=== PATIENT | male | born 1970 | race Caucasian/White ===

== ENCOUNTER 2018-03-31 10:35 | Emergency (ER) | payer OTHER ==
[~2018-03-31] VITALS: Ht 182.9 cm; Wt 83.9 kg
--- OUTSIDE RECORDS SUMMARY | ~2018-03-31 | XMS | Encounter Summary ---
Demographics + + + | Address | [address] | | | [place] [address] | + + + | Home Phone | | + + + | Preferred Language | Unknown | + + + | Marital Status | | + + + | Christian Affiliation | Unknown | + + + | Race | White | + + + | Ethnic Group | Not or | + + + Author + + + | Author | [facility] | + + + | Organization | [facility] | + + + | Address | Unknown | + + + | Phone | Unavailable | + + + Support + + + + + | Name | Relationship | Address | Phone | + + + + + | Brittney Dawkins | [address] | [place] | | | | | [address] | | + + + + + Care Team Providers + +------+ + | Care Congregational Care Pastor Name | Role | Phone | + [...] + + | 02/05/ | Abstract | Transplant | Santos Lorenzo, | Lab Results (MDRD6: | | 2017 | | Coordinators [address] | [address] | 01/22/18) | | | | [address] [facility] | [facility] | | | | | Road [place], [place] | [place] | | | | | [address] | [address] | | | | | [phone] | [phone] | | | | | | | [...] + +---------+ + | Alcohol Use | Drinks/We | oz/Week | Comments | | | ek | | | + + +---------+ + | No | 0 | 0.0 | None since renal failure progressed | | | Standard | | | | | drinks or | | | | | | | | | | equivalen | | | | | t | | | + + +---------+ + + + + | Sex Assigned at | Date Recorded | | | | + + + | Not on file | | + + + as of this encounter Plan of Treatment +--------+ + + + + | Date | Type | Specialty | Care Team | Description | +--------+ + + + + | 05/02/ | Hospital | Adult Acute Care | Anam Posada MD | | | 2018 | Encounter | | [address] | | | | | | [place], | | | | | | [place] [address] | | | | | | [phone] | | | | | | | | +--------+ + + + + as of this encounter Procedures + +--------+ + + + | Procedure Name | Priori | Date/Time | Associated Diagnosis | Comments | | | ty | | | | + +--------+ + + + | MDRD 6 | Routin | 01/22/2018 | | Results for this | | | e | 12:00 AM | | procedure are in the | | | | PDT | | results section. | + +--------+ + + + in this encounter Results MDRD 6 (01/22/2018) + + + + + | Component | Value | Ref Range | Performed At | + + + + + | MDRD6 | 24.75 | | NON [facility] | + + + + + | BUN, PLASMA (LAB) | 34 (H) | mg/dL | [facility] | + + + + + | CREATININE PLASMA | 3.06 (H) | mg/dL | NON [facility] | | (LAB) | | | | + + + + + | ALBUMIN, PLASMA | 4.3 | g/dL | NON [facility] | | (LAB) | | | | + + + + + + + | Specimen | + + | Blood - Blood | + + + + + | Narrative | Performed At | + + + | Silvia | NON [facility] | | [place] [address] | | + + + + +---------+ + + | Performing | Address | City/State/Zipcode | Phone Number | | Organization | | | | + +---------+ + + | NON [facility] | | | | + +---------+ + + in this encounter Visit Diagnoses Not on filein this encounter"
--- OUTSIDE RECORDS SUMMARY | ~2018-03-31 | XMS | Clinical Summary ---
Demographics + + + | Address | [address] | | | [place] [address] | + + + | Home Phone | | + + + | Preferred Language | Unknown | + + + | Marital Status | | + + + | Gnosticist Affiliation | Unknown | + + + | Race | White | + + + | Ethnic Group | Not or | + + + Author + + + | Author | [facility] | + + + | Organization | [facility] | + + + | Address | Unknown | + + + | Phone | Unavailable | + + + Support + + + + + | Name | Relationship | Address | Phone | + + + + + | Brittney Dawkins | ECON | [place] | | | | | [address] | | + + + + + Care Team Providers + +------+ + | Care Manager Inspection Name | Role | Phone | + +------+ + | Jt Perkins MD | PP | | + +------+ + Source Comments RODRIGUEZ is fully live on both [facility] Ambulatory and [facility] InPatient.[facility] Allergies + + + + + + | Active Allergy | Reactions | Severity | Noted | Comments | | | | | Date | | + + + + + + | Hydrocodone | Pruritus | Medium | 09/05/19 | Pt reports itching | | | | | 16 | with most | | | | | | narcotics, no rash | | | | | | "just a lot of | | | | | | itching with | | | | | | narcotic" | + + + + + + Current Medications + + +-------+---------+------+------+-------+ | Prescription | Sig. | Disp. | Refills | Star | End | Statu | | | | | | t | Date | s | | | | | | Date | | | + + +-------+---------+------+------+-------+ | HUMIRA PEN | | | 0 | 11/2 | | Activ | | CROHN'S-UC-HS START | | | | 4/20 | | e | | 40 mg/0.8 mL | | | | 15 | | | | subcutaneous pen | | | | | | | | injector kit | | | | | | | + + +-------+---------+------+------+-------+ | carvedilol 12.5 mg | 12.5 mg two times | | 0 | 02/1 | | Activ | | oral tablet | daily. | | | 0/20 | | e | | | | | | 16 | | | + + +-------+---------+------+------+-------+ | pantoprazole 40 mg | | | 0 | 02/0 | | Activ | | oral tablet,delayed | | | | 5/20 | | e | | release (DR/EC) | | | | 16 | | | + + +-------+---------+------+------+-------+ | Cholecalciferol, | Take 5,000 Units by | | 0 | 12/1 | | Activ | | Vitamin D3, 5,000 | mouth once daily. | | | 4/20 | | e | | unit oral capsule | | | | 15 | | | + + +-------+---------+------+------+-------+ | escitalopram | Take 20 mg by mouth | | | | | Activ | | oxalate 20 mg oral | once daily. | | | | | e | | tablet | | | | | | | + + +-------+---------+------+------+-------+ Active Problems + + + | Problem | Noted Date | + + + | Anemia of chronic renal failure, stage 4 (severe) ([facility]) | 09/05/2015 | + + + | Venous malformation | 09/05/2015 | + + + + + | Overview: On outside CT | + + + + + | CD (Crohn's disease) ([facility]) | 05/29/2015 | + + + | Inflammation of multiple joints | 05/29/2015 | + + + | Benign hypertension | 05/23/2015 | + + + + + | Overview: No clonidine | | One ED visit | + + + + + | Clinical depression | 10/08/2012 | + + + + + | Overview: Not suicidal | | Not homicidal | + + + + + | Acute interstitial nephritis | 03/12/2009 | + + + | Chronic kidney disease, stage IV (severe) (HCC) | 03/02/2009 | + + + + + | Overview: 1. Progressive renal dysfxn2. Abnormal R renal CT3. | | Renal Bx: 11/25: Interstitial nephritis. ([facility], | | [place]) 4. Corticosteroids instituted: . Negative | | immunologic w/u: ADAM, anti-DNA6. eGFR 18: 08/2015 | |5. Negative immunologic w/u: ADAM, anti-DNA | |6. eGFR 18: 08/2015 | + + + +---+ | Renal hypertension | | + +---+ + + | Overview: 2728 diagnosis | + + Resolved Problems +---------+ + + | Problem | Noted | Resolved | | | Date | Date | +---------+ + + | Colitis | 03/02/20 | | | | 09 | 6 | +---------+ + + Encounters +--------+ + + + + | Date | Type | Specialty | Care Team | Description | +--------+ + + + + | 03/30/ | Telephone | | Damaris Krishnamurthy RN | TAMIKO Waitlist | | 2017 | | | | | +--------+ + + + + | 02/19/ | Documentati | | Margaret Holman, | | | 2017 | on | | EVAPORATOR HELPER | | +--------+ + + + + | 02/17/ | Telephone | | Thi Lopez | TAMIKO Waitlist (routine | | 2017 | | Abby Peterson RN | check in) | +--------+ + + + + | 02/05/ | Abstract | | Santos Lorenzo, | Lab Results (MDRD6: | | 2017 | | | MD | 01/22/18) | +--------+ + + + + from Last 3 Months Immunizations + + + + | Name | Dates Previously Given | Next Due | + + + + | PCV13 | 09/05/2015 | | + + + + | Pneumococcal 23 | 12/11/2015 | | + + + + | Tdap | 12/11/2015 | | + + + + Family History + + +------+ + | Medical History | Relation | Name | Comments | + + +------+ + | Hypertension | Father | | | + + +------+ + | Cancer | Maternal | | colon, lung, melanoma | | | Grandfath | | | | | er | | | + + +------+ + | Cancer | Maternal | | Breast | | | Grandmoth | | | | | er | | | + + +------+ + | Hypertension | Mother | | | + + +------+ + | Heart Disease | Paternal | | | | | Grandfath | | | | | er | | | + + +------+ + + +------+ + + | Relation | Name | Status | Comments | + +------+ + + | Brother | | Alive | | + +------+ + + | Father | | Alive | | + +------+ + + | Maternal Grandfather | | | | + +------+ + + | Maternal Grandmother | | | | + +------+ + + | Mother | | Alive | | + +------+ + + | Paternal Grandfather | | | | + +------+ + + | Paternal Grandmother | | | | + +------+ + + Social History + + + [...] on file | | + + + Last Filed Vital Signs + + + + | Vital Sign | Reading | Time Taken | + + + + | Blood Pressure | 140/85 | 07/02/2016 2:55 PM PST | + + + + | Pulse | 67 | 07/02/2016 2:55 PM PST | + + + + | Temperature | 36.4 C (97.6 F) | 07/02/2016 2:55 PM PST | + + + + | Respiratory Rate | 18 | 03/12/2009 9:20 AM PDT | + + + + | Oxygen Saturation | 97% | 07/02/2016 2:55 PM PST | + + + + | Inhaled Oxygen | - | - | | Concentration | | | + + + + | Weight | 88.5 kg (195 lb) | 07/02/2016 2:55 PM PST | + + + + | Height | 182.9 cm (6') | 07/02/2016 2:55 PM PST | + + + + | Body Mass Index | 26.45 | 07/02/2016 2:55 PM PST | + + + + Plan of Treatment +--------+ + + + + | Date | Type | Specialty | Care Team | Description | +--------+ + + + + | 10/14/ | Hospital | | Anam Posada MD | | | 2019 | Encounter | | [address] | | | | | | [place], | | | | | | [place] [address] | | | | | | [phone] | | | | | | | | +--------+ + + + + + + + + + | Health Maintenance | Due Date | Last Done | Comments | + + + + + | INFLUENZA VACCINE | | | | | (FLU SHOT) | 8 | | | + + + + + | Pneumococcal (Adult) | | 12/11/2015, 09/05/2015 | | | (3 of 3 - PPSV23) | 1 | | | + + + + + Procedures + +--------+ + + + | [...] + + from Last 3 Months Results MDRD 6 (01/22/2018) + + + + + | Component | Value | Ref Range | Performed At | + + + + + | MDRD6 | 24.75 | | NON [facility] | + + + + + | BUN, PLASMA (LAB) | 34 (H) | mg/dL | NON [facility] | + + + + + [...] [facility] | | Health [place] [address] | | + + + + +---------+ + + | Performing | Address | City/State/Zipcode | Phone Number | | Organization | | | | + +---------+ + + | NON [facility] | | | | + +---------+ + + from Last 3 Months Insurance + +--------+ +--------+ + + | Hugoer | Stefanyi | Subscriber | Type | Phone | Address | | | t Plan | ID | | | | | | / | | | | | | | Group | | | | | + +--------+ +--------+ + + | [employer] | LIFEWI | xxxxxxxxxxx | Indemn | | | | | SE OUT | x | ity | | | | | OF | | | | | | | NETWOR | | | | | | | K | | | | | + +--------+ +--------+ + + | [facility] | PHP | [phone] | PPO | [phone] | [address] | | | [address] | | [address] | [place] [address] | | | STATEW | | | | | | | SUHA | | | | | + +--------+ +--------+ + + + +--------+ +--------+ + + | Guarantor Name | Accoun | Relation to | Date | Phone | Billing Address | | | t Type | Patient | of | | | | | | | | | | + +--------+ +--------+ + + | DASHA ONEILL | Person | Self [birth year] Home: | [address] | | | al/Fam | | 1971 | [phone] [place] [address] | | | greg | | | [phone] | | + +--------+ +--------+ + +
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
--- OUTSIDE RECORDS SUMMARY | ~2018-03-31 | XMS | Encounter Summary ---
Demographics + + + | Address | [address] | | | [place] [address] | + + + | Home Phone | | + + + | Preferred Language | Unknown | + + + | Marital Status | | + + + | Adventism Affiliation | Unknown | + + + | Race | White | + + + | Ethnic Group | Not or | + + + Author + + + | Author | [facility] | + + + | Organization | [facility] | + + + | Address | Unknown | + + + | Phone | Unavailable | + + + Support + + + + + | Name | Relationship | Address | Phone | + + + + + | Brittney Dawkins | [address] | [place] | | | | | [address] | | + + + + + Care Team Providers + +------+ + | Care Pheresis Specialist Name | Role | Phone | + +------+ + | Jt Perkins MD | PCP | | + +------+ + Encounter Details +--------+ + + + + | Date | Type | Department | Care Team | Description | +--------+ + + + + | 02/19/ | Documentati | Transplant Social | Margaret Holman, | | | 2018 | on | Work [phone] | [facility] [phone] | | | | | [facility] | [facility] | | | | | Jesse [address] | [place], [place] | | | | | [place], [place] | [address] | | | | | [address] | [phone] | | | | | [phone] | | | +--------+ + + + [...] | | | | | [address] [place], | | | | | | [place] [address] | | | | | | [phone] | | | | | | | | +--------+ + + + + as of this encounter Visit Diagnoses Not on filein this encounter"
--- OUTSIDE RECORDS SUMMARY | ~2018-03-31 | XMS | Clinical Summary ---
Demographics + + + | Address | [address] | | | [place] [address] | + + + | Home Phone | | + + + | Preferred Language | Unknown | + + + | Marital Status | | + + + | Cheondoism Affiliation | Unknown | + + + [...] [place] | | | | | [address] | | + + + + + Care Team Providers + +------+ + | Care Medical Diagnostic Radiographer Name | Role | Phone | + +------+ + | Jt Perkins MD | PP | | + +------+ + Source Comments RODRIGUEZ is fully live on both [facility] Ambulatory and [facility]Patient[facility] Allergies + + + + [...] 11/25: Interstitial nephritis. ([facility], | | [place]) 4. Corticosteroids instituted: . Negative | | [...] | | 2017 | on | | GROUNDS WORKER | | +--------+ + + + + [...] | | | | | [address] [place], | | | | | | [place] [address] | | | | | | [phone] | | | | | | | [...] [facility] | | Health [facility] [place] [address] | | + + + + +---------+ [...] | [address] | | [address] | [place] [address] | | | [address] | | | [...] | 1971 | [phone] | [place] [address] | | | greg | | | 1825 | | + +--------+ +--------+ + +
--- OUTSIDE RECORDS SUMMARY | ~2018-03-31 | XMS | Encounter Summary ---
Demographics + + + | Address | [address] | | | [place] [address] | + + + | Home Phone | | + + + | Preferred Language | Unknown | + + + | Marital Status | | + + + | Adventist Affiliation | 1041 | + + + | Race | Unknown | + + + | Ethnic Group | Unknown | + + + Author + + + | Author | [facility] | | | and [place] | + + + | Organization | [facility] | | | and [place] | [...] [place], [place] | | | | | [address] | | + + + + + | Ryan Oneill | ECON | [place], [place] | | | | | [address] | | + + + + + Care Team Providers + +------+ + | Care Pulmonary Physician Name | Role | Phone | + +------+ + PCP | Unavailable | + +------+ + Encounter Details +--------+ + + + + | Date | Type | Department | Care Team | Description | +--------+ + + + + | 01/25/ | Abstract | [facility] | Christine Martinez W, | | | 2017 | | NEPHROLOGY [address] | | | | | [address] | [address] [place] | | | | | [place], [place] | [place] [address] | | | | | [address] | [phone] | | | | | [phone] | | | +--------+ + + + [...] Nephrology | Christine Martinez, | | | 2018 | Visit | | [address] | | | | | | [address] [place] | | | | | | [place] [address] | | | | | | [phone] | | | | | | | | +--------+---------+ + + + as of this encounter Procedures + +--------+ + + + | Procedure Name | Priori | Date/Time | Associated Diagnosis | Comments | | | ty | | | | + +--------+ + + + | EXTERNAL LAB: BUN | Routin | 01/22/2018 | | Results for this | | | e | 0000 PDT | | procedure are in the | | | | | | results section. | + +--------+ + + + | EXTERNAL LAB: | Routin | 01/22/2018 | | Results for this | | GLUCOSE | e | 0000 PDT | | procedure are in the | | | | | | results section. | + +--------+ + + + | EXTERNAL LAB: | Routin | 01/22/2018 | | Results for this | | ALBUMIN | e | 0000 PDT | | procedure are in the | | | | | | results section. | + +--------+ + + + | EXTERNAL LAB: | Routin | 01/22/2018 | | Results for this | | PHOSPHORUS | e | 0000 PDT | | procedure are in the | | | | | | results section. | + +--------+ + + + | EXTERNAL LAB: | Routin | 01/22/2018 | | Results for this | | CALCIUM | e | 0000 PDT | | procedure are in the | | | | | | results section. | + +--------+ + + + | EXTERNAL LAB: CARBON | Routin | 01/22/2018 | | Results for this | | DIOXIDE | e | 0000 PDT | | procedure are in the | | | | | | results section. | + +--------+ + + + | EXTERNAL LAB: | Routin | 01/22/2018 | | Results for this | | CHLORIDE | e | 0000 PDT | | procedure are in the | | | | | | results section. | + +--------+ + + + | EXTERNAL LAB: | Routin | 01/22/2018 | | Results for this | | POTASSIUM | e | 0000 PDT | | procedure are in the | | | | | | results section. | + +--------+ + + + | EXTERNAL LAB: SODIUM | Routin | 01/22/2018 | | Results for this | | | e | 0000 PDT | | procedure are in the | | | | | | results section. | + +--------+ + + + | EXTERNAL LAB: | Routin | 01/22/2018 | | Results for this | | VITAMIN D, | e | 0000 PDT | | procedure are in the | | 25-HYDROXY | | | | results section. | + +--------+ + + + | EXTERNAL LAB: | Routin | 01/22/2018 | | Results for this | | URINALYSIS | e | 0000 PDT | | procedure are in the | | | | | | results section. | + +--------+ + + + | EXTERNAL LAB: PTH, | Routin | 01/22/2018 | | Results for this | | INTACT | e | 0000 PDT | | procedure are in the | | | | | | results section. | + +--------+ + + + | EXTERNAL LAB: | Routin | 01/22/2018 | | Results for this | | PROTEIN/CREATININE | e | 0000 PDT | | procedure are in the | | RATIO | | | | results section. | + +--------+ + + + | EXTERNAL LAB: CBC | Routin | 01/22/2018 | | Results for this | | | e | 0000 PDT | | procedure are in the | | | | | | results section. | + +--------+ + + + | EXTERNAL LAB: EGFR | Routin | 01/22/2018 | | Results for this | | | e | 0000 PDT | | procedure are in the | | | | | | results section. | + +--------+ + + + | EXTERNAL LAB: | Routin | 01/22/2018 | | Results for this | | CREATININE | e | 0000 PDT | | procedure are in the | | | | | | results section. | + +--------+ + + + | URINALYSIS WITH | Routin | 01/22/2018 | | Results for this | | MICROSCOPIC | e | 0000 PDT | | procedure are in the | | | | | | results section. | + +--------+ + + + in this encounter Results Urinalysis With Microscopic (01/22/2018) + + + + + | Component | Value | Ref Range | Performed At | + + + + + | WBC UA | 2 | /HPF | | + + + + + | COLOR | Yellow | Light Yellow, Yellow | | + + + + + | BACTERIA UA | Negative | Negative /HPF | | + + + + + | SQUAMOUS EPITHELIAL | 0-2 | 0 - 2 /LPF | | | UA | | | | + + + + + | NITRITE UA | Negative | Negative | | + + + + + | CLARITY | Clear | | | + + + + + + + | Specimen | + + | Urine | + + External Lab: Protein/Creatinine Ratio (01/22/2018) + + + + + | Component | Value | Ref Range | Performed At | + + + + + | Protein/Creatinine | 0.270 (A) | 0.2 | | | Ratio, External | | | | + + + + + External Lab: PTH, Intact (01/22/2018) + + + + + | Component | Value | Ref Range | Performed At | + + + + + | PTH Intact, External | 124.2 (A) | 12 - 88 | | + + + + + External Lab: BUN (01/22/2018) + +--------+ + + | Component | Value | Ref Range | Performed At | + +--------+ + + | BUN, External | 34 (A) | 6 - 23 | EXTERNAL LAB | + +--------+ + + + +---------+ + + | Performing | Address | City/State/Zipcode | Phone Number | | Organization | | | | + +---------+ + + | EXTERNAL LAB | | | | + +---------+ + + External Lab: Glucose (01/22/2018) + +-------+ + + | Component | Value | Ref Range | Performed At | + +-------+ + + | Glucose, External | 75 | 70 - 100 | EXTERNAL LAB | + +-------+ + + + +---------+ + + | Performing | Address | City/State/Zipcode | Phone Number | | Organization | | | | + +---------+ + + | EXTERNAL LAB | | | | + +---------+ + + External Lab: Albumin (01/22/2018) + +-------+ + + | Component | Value | Ref Range | Performed At | + +-------+ + + | Albumin, External | 4.3 | 3.5 - 5 | EXTERNAL LAB | + +-------+ + + + +---------+ + + | Performing | Address | City/State/Zipcode | Phone Number | | Organization | | | | + +---------+ + + | EXTERNAL LAB | | | | + +---------+ + + External Lab: Phosphorus (01/22/2018) + +-------+ + + | Component | Value | Ref Range | Performed At | + +-------+ + + | Phosphorus, External | 3.8 | 2.5 - 5 | EXTERNAL LAB | + +-------+ + + + +---------+ + + | Performing | Address | City/State/Zipcode | Phone Number | | Organization | | | | + +---------+ + + | EXTERNAL LAB | | | | + +---------+ + + External Lab: Calcium (01/22/2018) + +-------+ + + | Component | Value | Ref Range | Performed At | + +-------+ + + | Calcium, External | 8.8 | 8.4 - 10.2 | EXTERNAL LAB | + +-------+ + + + +---------+ + + | Performing | Address | City/State/Zipcode | Phone Number | | Organization | | | | + +---------+ + + | EXTERNAL LAB | | | | + +---------+ + + External Lab: Carbon Dioxide (01/22/2018) + +-------+ + + | Component | Value | Ref Range | Performed At | + +-------+ + + | Carbon Dioxide, | 24 | 23 - 32 | EXTERNAL LAB | | External | | | | + +-------+ + + + +---------+ + + | Performing | Address | City/State/Zipcode | Phone Number | | Organization | | | | + +---------+ + + | EXTERNAL LAB | | | | + +---------+ + + External Lab: Chloride (01/22/2018) + +-------+ + + | Component | Value | Ref Range | Performed At | + +-------+ + + | Chloride, External | 107 | 100 - 110 | EXTERNAL LAB | + +-------+ + + + +---------+ + + | Performing | Address | City/State/Zipcode | Phone Number | | Organization | | | | + +---------+ + + | EXTERNAL LAB | | | | + +---------+ + + External Lab: Potassium (01/22/2018) + +-------+ + + | Component | Value | Ref Range | Performed At | + +-------+ + + | Potassium, External | 4.1 | 3.5 - 5.1 | EXTERNAL LAB | + +-------+ + + + +---------+ + + | Performing | Address | City/State/Zipcode | Phone Number | | Organization | | | | + +---------+ + + | EXTERNAL LAB | | | | + +---------+ + + External Lab: Sodium (01/22/2018) + +-------+ + + | Component | Value | Ref Range | Performed At | + +-------+ + + | Sodium, External | 141 | 135 - 145 | EXTERNAL LAB | + +-------+ + + + +---------+ + + | Performing | Address | City/State/Zipcode | Phone Number | | Organization | | | | + +---------+ + + | EXTERNAL LAB | | | | + +---------+ + + External Lab: Vitamin D, 25-Hydroxy (01/22/2018) + +--------+ + + | Component | Value | Ref Range | Performed At | + +--------+ + + | Vitamin D, | 28 (A) | 30 - 100 | EXTERNAL LAB | | 25-Hydroxy, External | | | | + +--------+ + + + + | Specimen | + + | Blood | + + + +---------+ + + | Performing | Address | City/State/Zipcode | Phone Number | | Organization | | | | + +---------+ + + | EXTERNAL LAB | | | | + +---------+ + + External Lab: Urinalysis (01/22/2018) + + + + + | Component | Value | Ref Range | Performed At | + + + + + | UA Blood, External | small | | EXTERNAL LAB | + + + + + | UA Glucose, External | normal | | EXTERNAL LAB | + + + + + | UA Ketones, External | negative | | EXTERNAL LAB | + + + + + | UA Ph, External | 5 | | EXTERNAL LAB | + + + + + | UA Proteins, | negative | | EXTERNAL LAB | | External | | | | + + + + + | UA RBC, External | 2 | | EXTERNAL LAB | + + + + + | UA Specific [place], | 1.018 | | EXTERNAL LAB | | External | | | | + + + + + | UA Leukocyte | negative | | EXTERNAL LAB | | Esterase, External | | | | + + + + + + +---------+ + + | Performing | Address | City/State/Zipcode | Phone Number | | Organization | | | | + +---------+ + + | EXTERNAL LAB | | | | + +---------+ + + External Lab: CBC (01/22/2018) + + + + + | Component | Value | Ref Range | Performed At | + + + + + | WBC, External | 4.2 | 4 - 11 | EXTERNAL LAB | + + + + + | HGB, External | 13 | 12 - 16 | EXTERNAL LAB | + + + + + | HCT, External | 37.4 | 35 - 45 | EXTERNAL LAB | + + + + + | PLT, External | 191 | 140 - 440 | EXTERNAL LAB | + + + + + | RBC, External | 3.89 (A) | 4 - 6 | EXTERNAL LAB | + + + + + | MCV, External | 96 | 80 - 100 | EXTERNAL LAB | + + + + + | RDW, External | 14.8 | 12 - 16 | EXTERNAL LAB | + + + + + + +---------+ + + | Performing | Address | City/State/Zipcode | Phone Number | | Organization | | | | + +---------+ + + | EXTERNAL LAB | | | | + +---------+ + + External Lab: eGFR (01/22/2018) + +--------+ + + | Component | Value | Ref Range | Performed At | + +--------+ + + | eGFR, External | 22 (A) | 60 | EXTERNAL LAB | + +--------+ + + + + | Specimen | + + | Blood | + + + +---------+ + + | Performing | Address | City/State/Zipcode | Phone Number | | Organization | | | | + +---------+ + + | EXTERNAL LAB | | | | + +---------+ + + External Lab: Creatinine (01/22/2018) + + + + + | Component | Value | Ref Range | Performed At | + + + + + | Creatinine, External | 3.06 (A) | 0.6 - 1.3 | EXTERNAL LAB | + + + + + + [...]
--- OUTSIDE RECORDS SUMMARY | ~2018-03-31 | XMS | Encounter Summary ---
Demographics + + + | Address | [address] | | | [place] [address] | + + + | Home Phone | | + + + | Preferred Language | Unknown | + + + | Marital Status | | + + + | Oriental Orthodox Affiliation | Unknown | + + + [...] [place] | | | | | [address] | | + + + + + Care Team Providers + +------+ + | Care Top And Trim Worker Name | Role | Phone | + +------+ + | Jt Perkins MD | PCP | | + +------+ + Encounter Details +--------+ + + + + | Date | Type | Department | Care Team | Description | +--------+ + + + + | 02/19/ | Documentati | Transplant Social | Margaret Holman, | | | 2018 | on | Work [address] [facility] | [facility] [address] | | | | | [facility] | [facility] | | | | | Jesse Yancey | [place], [place] | | | | | [place] | [address] | | | | | [address] | [phone] | | | | | [phone] | | | +--------+ + + + [...] | | | | | Kait Barrios [place], | | | | | | [place] [address] | | | | | | [phone] | | | | | | | | +--------+ + + + + as of this encounter Visit Diagnoses Not on filein this encounter"
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
--- OUTSIDE RECORDS SUMMARY | ~2018-03-31 | XMS | Encounter Summary ---
Demographics + + + | Address | [address] | | | [place] [address] | + + + | Home Phone | | + + + | Preferred Language | Unknown | + + + | Marital Status | | + + + | Pentecostal Affiliation | 1041 | + + + | Race | Unknown | + + + | Ethnic Group | Unknown | + + + Author + + + | Author | [facility] | | | and [place] | + + + | Organization | [facility] | | | and [place] | + + + | Address | Unknown | + + + | Phone | Unavailable | + + + Support + + + + + | Name | Relationship | Address | Phone | + + + + + | Britteny Oneill | ECON | [address] | | | | | [place], [place] | | | | | [address] | | + + + + + | Ryan Oneill | ECON | [place] | | | | | [address] | | + + + + + Care Team Providers + +------+ + | Care Electronics Research Engineer Name | Role | Phone | [...] | kidney | MD Bj | [address] | | | | | disease, | [address] | | | | | stage 4 | [place] | [address] [place] | | | | | (severe) | [address] | [place] | | | | | (HCC) | [place], | [address] Phone: | | | | | Essential | [place] | [phone] | | | | | hypertension | [address] | Fax: | | | | | , benign | Phone: | [phone] | | | | | Procedures | [phone] | | | | | | [place] OFFICE | Fax: | | | | | | OUTPATIENT | [phone] | | | | | | VISIT 25 | | | | | | | MINUTES | | | + +--------+ + + + + Encounter Details +--------+---------+ + + + | Date | Type | Department | Care Team | Description | +--------+---------+ + + + | 01/26/ | Office | [facility] | Christine Martinez, | CKD (chronic kidney | | 2017 | Visit | NEPHROLOGY [address] | disease) stage 4, | | | | [address] | [address] [place] | GFR 15-29 ml/min | | | | [place], [place] | [place] [address] | ([facility]) (Primary Dx); | | | | [address] | [phone] | Essential | | | | [phone] | | hypertension; Anemia | | | | | | in stage 4 chronic | | | | | | kidney disease | | | | | | ([facility]); Secondary | | | | | | hyperparathyroidism | | | | | | ([facility]) | +--------+---------+ + + + Social [...] added to kidney transplant waiting list at [facility] Waiting time qualifying date: 10/04/15 04/28/16- Active on transplant list at [facility]. Referred to [facility]. Cleared for transplant by Dr. Lorenzo/ Dr. Reynolds on 02/15/16. Secondary hyperparathyroidism (HCC) 11/26/2015 H/O Gastric ulcer 11/08/2015 CKD (chronic kidney disease) stage 4, GFR 15-29 ml/min ([facility]) 10/29/2015 Note Last Updated: 10/20/2016 On [...] RBC, External 01/22/2018 2 Final UA Specific [place], External 01/22/2018 1.018 Final UA Leukocyte Esterase, [...] GFR 15-29 ml/min ([facility]) Due to chronic interstitia l nephropathy. History of dialysis x 10 months. eGFR >20 mL/min. Clinically, pt is doing well. Plan to contact [facility] Transplant, once eGFR is <20 for [...] [place] | | | | | | [place] [address] | | | | | | [phone] | | | | | | | [...] ml/min ([facility]) - Primary | + + | Chronic kidney disease, Stage IV (severe) | + + | Essential hypertension | + + | Essential hypertension, benign | + + | Anemia in stage 4 chronic kidney disease (HCC) | + + | Secondary hyperparathyroidism (HCC) | + + | Secondary hyperparathyroidism (of renal origin) | + +"
--- OUTSIDE RECORDS SUMMARY | ~2018-03-31 | XMS | Encounter Summary ---
Demographics + + + | Address | [address] | | | [place] [address] | + + + | Home Phone | | + + + | Preferred Language | Unknown | + + + | Marital Status | | + + + | Rastafarian Affiliation | Unknown | + + + | Race | White | + + + | Ethnic Group | Not or | + + + Author + + + | Author | [facility] | + + + | Organization | [facility] | + + + | Address | Unknown | + + + | Phone | Unavailable | + + + Support + + + + + | Name | Relationship | Address | Phone | + + + + + | Brittney Dawkins | [address] | [place] | | | | | [address] | | + + + + + Care Team Providers + +------+ + | Care Cage Shift Manager Name | Role | Phone | [...] 01/22/18) | | | | [address] [facility] | [facility] | | | | | Road [place], [place] | [place], [place] | | | | | [address] | [address] | | | | | [phone] | [phone] | | | | | | | [...] | | | | | Kait Barrios [place], | | | | | | [place] [address] | | | | | | [phone] | | | | | | | [...] | MDRD6 | 24.75 | | NON [facility] | + + + + + | BUN, PLASMA (LAB) | 34 (H) | mg/dL | NON [facility] | + + + + + [...] [facility] | | [place] [address] | | + + + + +---------+ + + | Performing | Address | City/State/Zipcode | Phone Number | | Organization | | | | + +---------+ + + | NON [facility] | | | | + +---------+ + + in this encounter Visit Diagnoses Not on filein this encounter"
--- OUTSIDE RECORDS SUMMARY | ~2018-03-31 | XMS | Encounter Summary ---
Demographics + + + | Address | [address] | | | [place] [address] | + + + | Home Phone | | + + + | Preferred Language | Unknown | + + + | Marital Status | | + + + | Moravian Affiliation | Unknown | + + + | Race | White | + + + | Ethnic Group | Not or | + + + Author + + + | Author | [facility] | + + + | Organization | [facility] | + + + | Address | Unknown | + + + | Phone | Unavailable | + + + Support + + + + + | Name | Relationship | Address | Phone | + + + + + | Brittney Dawkins | [address] | [place] | | | | | [address] | | + + + + + Care Team Providers + +------+ + | Care Senior Design Engineer Name | Role | Phone | [...] + + | 02/17/ | Telephone | Transplant | Thi Lopez | Waitlist (routine | | 2018 | | Coordinators [address], RN [address] | check in) | | | | [address] [facility] | [facility] [address] | | | | | Road [place], [place] | [place] [address] | | | | | [address] | | | | | | [phone] | | | +--------+ + + + [...] | | | | | [place], | | | | | | [place] [address] | | | | | | [phone] | | | | | | | | +--------+ + + + + as of this encounter Visit Diagnoses Not on filein this encounter"
--- OUTSIDE RECORDS SUMMARY | ~2018-03-31 | XMS | Encounter Summary ---
Demographics + + + | Address | [address] | | | [place] [address] | + + + | Home Phone | | + + + | Preferred Language | Unknown | + + + | Marital Status | | + + + | Druze Affiliation | 1041 | + + + | Race | Unknown | + + + | Ethnic Group | Unknown | + + + Author + + + | Author | [facility] | | | and Wilaimana | + + + | Organization | [facility] | | | and [...] [place], [place] | | | | | [address] | | + + + + + | Ryan Oneill | ECON | [place], [place] | | | | | [address] | | + + + + + Care Team Providers + +------+ + | Care Bag Loader Name | Role | Phone | [...] NEPHROLOGY [address] | | | | | [address] | [address] [place] | | | | | [place], [place] | [place] [address] | | | | | [address] | [phone] | | | | | [phone] | | | +--------+ + + + [...] 2018 | Visit | | [address] | | | | | | [address] | | | | | | [place] [address] | | | | | | [phone] | | | | | | | [...] + + + + | [facility], | 1.018 | | EXTERNAL LAB | [...]
--- OUTSIDE RECORDS SUMMARY | ~2018-03-31 | XMS | Clinical Summary ---
Demographics + + + | Address | [address] [address] | | | [place] [address] | + + + | Home Phone | | + + + | Preferred Language | Unknown | + + + | Marital Status | | + + + | Scientology Affiliation | 1041 | + + + | Race | Unknown | + + + | Ethnic Group | Unknown | + + + Author + + + | Author | [facility] | + + + | Organization | [facility] | + + + | Address | [...] | Edita Oneill | ECON | [address] | | | | | [place] | | | | | [address] | | + + + + + | David Perez | [place] | Unknown | | + + + + + Care Team Providers + +------+ + | Care Pretzel Twister Name | Role | Phone | + [...] | | + + +--------+---------+------+------+-------+ | B [id number] | Take by mouth. | | | [...] + + + | Vaccine: | | | | | Dtap/Tdap/Td (1 - | 1 | | | | Tdap) | | | | + + + + + | Vaccine: | | | | | Pneumococcal 19-64 | 1 | | | | Highest Risk (1 of 3 | | | | | - PCV13) | | | | + + + [...] | | 201.76 | | 2.4x14mm - [id number]: | | Wrist | | | | 4 / / | | Qty: 2 on 04/08/2014 by | | | | | | | | Dick Hines MD | | | | | | | + +------+--------+ +--------+--------+--------+ | Screw Locking [employer] | | Right: | SYNTHES | | | 02.210 | | 2.4x18mm - [id number]: | | Wrist | | | | [...] | | | .630 / | | [id number]: Qty: 1 on | | | | | | / | | 04/08/2014 by Dick Hines | | | | | | | | MD Jonathan | | | | | | | + +------+--------+ +--------+--------+--------+ | Screw Locking [employer] | | Right: | Synthes | | | 02.210 | | 2.4x16mm - [id number]: | | Wrist | | | | .116 / | | Qty: 2 on 04/08/2014 by | | | | | | / | | Dick Hines MD | | | | | | | + +------+--------+ +--------+--------+--------+ | Screw Locking [employer] | | Right: | Synthes | | | 02.210 | | 2.4x14mm - [id number]: | | Wrist | | | | [...] + | AUTO INSURANCE | STATE | [id number] | | | | | | FARM | | | | | | | AUTO | | | | | | | INSURA | | | | | | | NCE | | | | | + +--------+ +------+-------+ + | PREMERA | PREMER | [id number] | | | [address] [address] | | | A | 1 | | | [place], [place] | | | [place] | | | | [address] | | | [place] | | | | | | | [place] | | | | | + +--------+ +------+-------+ + | PREMERA | PROVID | [id number] | | | [address] [address] | | | ENCE | 1 | | | [place], [place] | | | HEALTH | | | | [address] | | | PLAN | | | | | + +--------+ +------+-------+ + | COMMERCIAL OTHER | COMMER | [id number] | | | | | | CIAL | | | | | | | GENERI | | | | | | | C PLAN | | | | | + +--------+ +------+-------+ + | COMMERCIAL OTHER | COMMER | [id number] | | | | | | CIAL | | | | | | | GENERI | | | | | | | C PLAN | | | | | + +--------+ +------+-------+ + | COMMERCIAL OTHER | COMMER | [id number] | | | | | | CIAL [...] Self | [birth year] | Home: | [address] | | | al/Fam | | 1971 | [phone] | [place] | | | greg | | | [phone] | [phone] | + +--------+ +--------+ + + | DASHA ONEILL | Third | Self | [birth year] | Home: | [address] | | | [employer] | | 1971 | [phone] | [place] | | | [place] | | | [phone] | [phone] | | | alejandro | | | | | + +--------+ +--------+ + +
--- OUTSIDE RECORDS SUMMARY | ~2018-03-31 | XMS | Clinical Summary ---
Demographics + + + | Address | [address] | | | [place] [address] | + + + | Home Phone [...] | [facility] | | | and Wiliamana | + + + | Organization | [facility] | | | and W[place]amana [...] [place], [place] | | | | | [address] | | + + + + + | Ryan Oneill | ECON | [place], [place] | | | | | [address] | | + + + + + Care Team Providers + +------+ + | Care Mechanical Oxidizer Name | Role | Phone | + [...] kidney transplant waiting list | | at [facility] Waiting time qualifying date: 10/03/1609- | | Active on transplant list at [facility].Referred to [facility]. Cleared for | | transplant by [...] stage 4, GFR 15-29 ml/min ([facility]) | 09/18/19 | | | | 16 [...] ml/min | | | | | | ([facility]) (Primary Dx); | | | | | | Essential | | | | | | hypertension; Anemia | | | | | | in stage 4 chronic | | | | | | kidney disease | | | | | | ([facility]); Secondary | | | | | | hyperparathyroidism | | | | | | ([facility]) | +--------+ + + + + | [...] | | | | | [place] [address] | | | | | | [phone] | | | | | | | [...] + + + + | [facility], | 1.018 | | EXTERNAL LAB | [...] +------+ +---------+ | [employer] | PACIFI | [id number] | PPO | +- | | | | [facility]C | | | [phone] | | | | E | | | | | | | FIRST | | | | | | | CHOICE | | | | | + +--------+ +------+ +---------+ | [facility] | PHP | [id number] | PPO | +- | | | [...] | | nando/Jay | | 1970 | [phone] | [place] | | | greg | | | [address]: | [phone] | | | | | | | | | | | | | [phone] | | | | | | [phone] | | + +--------+ +--------+ + +"
--- OUTSIDE RECORDS SUMMARY | ~2018-03-31 | XMS | Encounter Summary ---
Demographics + + + | Address | [address] [facility] | | | [place] [address] | + + + | Home Phone | | + + + | Preferred Language | Unknown | + + + | Marital Status | | + + + | Church Affiliation | Unknown | + + + [...] [place] | | | | | [address] | | + + + + + Care Team Providers + +------+ + | Care Hogshead Opener Name | Role | Phone | + [...] + + | 03/30/ | Telephone | Transplant | Damaris Krishnamurthy RN | KP Waitlist | | 2018 | | Coordinators [address] | | | | | [address] | [facility], | | | | | [place], [place] | [place] [address] | | | | | [address] | | | | | | [phone] | | | +--------+ + + + [...] | Hospital | Adult Acute Care | nAam Posada MD | | | 2019 | Encounter | | [address] | | | | | | [place], | | | | | | [place] [address] | | | | | | [phone] | | | | | | | | +--------+ + + + + as of this encounter Visit Diagnoses Not on filein this encounter"
--- OUTSIDE RECORDS SUMMARY | ~2018-03-31 | XMS | Encounter Summary ---
Demographics + + + | Address | [address] [facility] | | | [place] [address] | + + + | Home Phone | | + + + | Preferred Language | Unknown | + + + | Marital Status | | + + + | Adventist Affiliation | Unknown | + + + [...] [place] | | | | | [address] | | + + + + + Care Team Providers + +------+ + | Care Sawmilling Operator Name | Role | Phone | [...] | Coordinators [address] | [address] | | | | | [address] [place] | [facility], | | | | | [place], [place] | [place] [address] | | | | | [address] | | | | | | [phone] | | | +--------+ + + + [...] | | | | | [place], | | | | | | [place] [address] | | | | | | [phone] | | | | | | | | +--------+ + + + + as of this encounter Visit Diagnoses Not on filein this encounter"
--- OUTSIDE RECORDS SUMMARY | ~2018-03-31 | XMS | Clinical Summary ---
Demographics + + + | Address | [address] [facility] [address] | | | [place] [address] | + + + | Home Phone | | + + + | Preferred Language | Unknown | + + + | Marital Status | | + + + | Restorationist Affiliation | 1041 | + + + | Race | Unknown | + + + | Ethnic Group | Unknown | + + + Author + + + | Author | [facility] | + + + | Organization | [facility] | + + + | Address [...] [place] | | | | | [address] | | + + + + + | David Perez | [place] | Unknown | | + + + + + Care Team Providers + +------+ + | Care Change Person Name | Role | Phone | + [...] | | + + +--------+---------+------+------+-------+ | B [id number]-[id number] | Take by mouth. | | | [...] | | 201.76 | | 2.4x14mm - [id number]: | | Wrist | | | | 4 / / | | Qty: 2 on 04/08/2014 by | | | | | | | | Dick Hines MD | | | | | | | + +------+--------+ +--------+--------+--------+ | Screw Locking [employer] | | Right: | SYNTHES | | | 02.210 | | 2.4x18mm - [id number]: | | Wrist | | | | [...] | | | .630 / | | [id number]: Qty: 1 on | | | | | | / | | 04/08/2014 by Dick Hines | | | | | | | | MD Jonathan | | | | | | | + +------+--------+ +--------+--------+--------+ | Screw Locking [employer] | | Right: | Synthes | | | 02.210 | | 2.4x16mm - [id number]: | | Wrist | | | | .116 / | | Qty: 2 on 04/08/2014 by | | | | | | / | | Dick Hines MD | | | | | | | + +------+--------+ +--------+--------+--------+ | Screw Locking [employer] | | Right: | Synthes | | | 02.210 | | 2.4x14mm - [id number]: | | Wrist | | | | [...] + | AUTO INSURANCE | STATE | [id number] | | | | | | FARM | | | | | | | AUTO | | | | | | | INSURA | | | | | | | NCE | | | | | + +--------+ +------+-------+ + | PREMERA | PREMER | [id number] | | | [address] [address] | | | A | 1 | | | [place], [place] | | | [place] | | | | [address] | | | [place] | | | | | | | [place] | | | | | + +--------+ +------+-------+ + | PREMERA | PROVID | [id number] | | | [address] [address] | | | ENCE | 1 | | | [place], [place] | | | HEALTH | | | | [address] | | | PLAN | | | | | + +--------+ +------+-------+ + | COMMERCIAL OTHER | COMMER | [id number] | | | | | | CIAL | | | | | | | GENERI | | | | | | | C PLAN | | | | | + +--------+ +------+-------+ + | COMMERCIAL OTHER | COMMER | [id number] | | | | | | CIAL | | | | | | | GENERI | | | | | | | C PLAN | | | | | + +--------+ +------+-------+ + | COMMERCIAL OTHER | COMMER | [id number] | | | | | | CIAL [...] | greg | | | [phone] | [phone] | + +--------+ +--------+ + + | DASHA ONEILL | Third | Self | [birth year] | Home: | [address] | | | Libertarian | | 1971 | [phone] | [place] | | | [place] | | | [phone] | [phone] | | | [place] | | | | | + +--------+ +--------+ + +
--- OUTSIDE RECORDS SUMMARY | ~2018-03-31 | XMS | Encounter Summary ---
Demographics + + + | Address | [address] [facility] | | | [place] [address] | + + + | Home Phone | | + + + | Preferred Language | Unknown | + + + | Marital Status | | + + + | Amish Affiliation | Unknown | + + + [...] [place] | | | | | [address] | | + + + + + Care Team Providers + +------+ + | Care Ornamental Plaster Sticker Name | Role | Phone | + [...] in) | | | | [address] [facility] | [facility] [address] | | | | | Road [place], [place] | [place] [address] | | | | | [address] | | | | | | [phone] | | | +--------+ + + + [...] | | | | | [place], | | | | | | [place] [address] | | | | | | [phone] | | | | | | | | +--------+ + + + + as of this encounter Visit Diagnoses Not on filein this encounter"
[2018-03-31] MEDS ORDERED: CARVEDILOL6.25 MG PO (10:48)
[2018-03-31] MEDS ORDERED: HUMIRA40 MG/0.1 SUB-Q (10:48)
[2018-03-31] MEDS ORDERED: DULOXETINE HCL30 MG PO (10:49)
[2018-03-31] MEDS ORDERED: LEVOTHYROXINE75 MCG PO (10:49)
[2018-03-31] MEDS ORDERED: PANTOPRAZOLE SO40 MG PO (10:49)
[2018-03-31] MEDS ORDERED: ESCITALOPRAM OX20 MG PO (10:49)
[2018-03-31] MEDS ORDERED: AZATHIOPRINE50 MG PO (10:50)
[2018-03-31] MEDS ORDERED: ONDANSETRON ODT8 MG PO (12:45)
--- NOTE | 2018-03-31 15:13 | EKG ---
[facility] [address] [place] [address] Signed Normal sinus rhythm Normal ECG No previous ECGs available Confirmed by KATHERINE PAYTON MD ([id number]) on 03/31/2018 3:13:55 PM Electronically Signed By: KATHERINE PAYTON MD 03/31/18 1513 PATIENT NAME: DASHA VELIZ Electrocardiogram DATE OF : 72 PHYSICIAN: KATHERINE PAYTON MD REPORT #: [id number] REPORT IS CONFIDENTIAL AND NOT TO BE RELEASED WITHOUT AUTHORIZATION
== END 2018-03-31 13:08 | disposition home or self-care (01) ==
LOC: ED 10:35
DX: R53.1 Weakness (principal); N18.9 Chronic kidney disease, unspecified; Z88.5 Allergy status to narcotic agent; Z88.8 Allergy status to other drugs, medicaments and biological substances; Z79.899 Other long term (current) drug therapy
CPT/HCPCS: 71046; 80053; 81001; 83735; 84439; 84443; 84484; 85025; 93005; 93010; 96374; 99285; J2405

== ENCOUNTER 2019-11-01 10:30 | Inpatient (IN) | payer OTHER ==
[~2019-11-01] VITALS: Ht 182.9 cm; Wt 88.5 kg
--- NOTE | 2019-11-01 07:30 | NUR ---
SHIFT REPORT RECIEVED FROM RNS PERRY AND LIOR. WEBSPHERE DEVELOPER IN ROOM WITH HOT TEA AND CRACKERS. NO FURTHER NEEDS AT THIS TIME.
[~2019-11-01 10:30] MED LIST: AZATHIOPRINE50 MG PO; CARVEDILOL6.25 MG PO; DULOXETINE HCL30 MG PO; ESCITALOPRAM OX20 MG PO; HUMIRA40 MG/0.1 SUB-Q; IMURAN50 MG PO; LEVOTHYROXINE75 MCG PO; ONDANSETRON ODT8 MG PO; PANTOPRAZOLE SO40 MG PO; VITAMIN D5000 UNIT PO
[2019-11-01] MEDS ORDERED: ESCITALOPRAM OX20 MG PO (11:30)
[2019-11-01] MEDS ORDERED: PANTOPRAZOLE SO40 MG PO (11:31)
[2019-11-01] MEDS ORDERED: ONDANSETRON ODT4 MG PO (11:32)
--- NOTE | 2019-11-01 15:10 | NUR ---
PT ARRIVED TO FLOOR VIA STRETCHER. PT ALERT AND ORIENTED X4, ABLE TO AMBULATE TO THE BED. PT IS PLEASANT, IN GOOD SPIRITS. PT GOT YESTERDAY. PT DOES HAVE NOTICIABLE SWELLING ON THE LEFT SIDE OF HIS NECK/JAW AREA. PT STATES PAIN IS 6/10. PT STATES THAT HE HAS NO DIFFICULTY TALKING OR SWALLOWING.
[2019-11-01] MEDS ORDERED: CARVEDILOL12.5 MG PO (15:20)
[2019-11-01] MEDS ORDERED: NORVASC10 MG PO (16:10)
--- NOTE | 2019-11-01 16:14 | NUR ---
Medications from home brought in by pt's family and sent to pharmacy for labeling.
--- NOTE | 2019-11-01 16:25 | NUR ---
MED REC COMPLETE
[2019-11-01] MEDS ORDERED: MOMETASONE FURO17 GM NAS (16:27)
--- NOTE | 2019-11-01 16:32 | NUR ---
GAVE PT PAIN DUE TO PAIN NOT IN TOLERABLE LIMITS FOR PT. 12/27
--- NOTE | 2019-11-01 17:13 | NUR ---
Pt's medication sent back home with his per his request.
--- NOTE | 2019-11-01 17:27 | NUR ---
PATIENT RESTING IN BED. VITAL SIGNS AND I&O DONE. ICE WATER GIVEN. CALL LIGHT WITHIN REACH. NO OTHER NEEDS AT THIS TIME
--- NOTE | 2019-11-01 17:53 | NUR ---
PT PUT RESEARCH PHYSICIAN LIGHT TO NOTIFY THIS RN THAT HIS IV INFUSION IS DONE. PT STATES PAIN IS 5/10 AND THAT THE DILUADID REALLY DIDN'T HELP IS PAIN VERY MUCH, PT STATES THAT HE THINKS IT MORE TO DO WITH HOW HE MOVED HIS HEAD. THIS RN OFFERED PT TYLENOL WHICH DECLINED STATING "I DON'T THINK IT WILL HELP" PT STATED THAT HE JUST WANTED TO TRY AND GET SOME SLEEP. THIS RN SHUT PTS BLINDS AND TURNED OFF THE LIGHTS, PT STATED THAT HE RATHER BE LEFT TO SLEEP AND NOT WOKEN UP WHEN THE NURSES DO BEDSIDE REPORT. PT HAS CALL LIGHT AND PERSONAL PHONE WITHIN REACH.
--- NOTE | 2019-11-01 18:03 | NUR ---
PT ARRIVED TO FLOOR AT 1510. PT ALERT AND ORIENTED X4, PT HAS PATENT AIR AND DENIES AND SHORTNESS OF BREAT/ DIFFICULTY SWALLOWING. PT HAS A NOTICIABLE SWOLLEN AREA ON THE LEFT SIDE OF HIS NECK, IT IS RED AND HOT TO TOUCH. PT STATES THAT THE SITE IS CONSTANTLY PAINFUL.
--- NOTE | 2019-11-01 19:30 | NUR ---
SHIFT REPORT RECIEVED FROM RNS PERRY AND LIOR. DETAILER IN ROOM WITH HOT TEA AND CRACKERS. NO FURTHER NEEDS AT THIS TIME.
--- NOTE | 2019-11-01 20:30 | NUR ---
pt ASSESSMENT COMPLETED, VS AND I+Os COMPLETED, PM MEDS GIVEN PER ORDER, pt ASKED FOR SLEEP AID, WILL NOTIFY MD, ICE WATER REFILLED, pt RATES PAIN IN LEFT JAW 6/10, PRN PAIN MEDS GIVEN PER ORDER, pt RESTING IN BED SAFELY WITH CALL LIGHT IN REACH, DENIES ANY OTHER NEEDS AT THIS TIME.
--- NOTE | 2019-11-01 23:04 | NUR ---
pt's PAIN HAS IMPROVED, pt RATES PAIN 4/10, ICE PACK GIVEN PER pt REQUEST. PRN SLEEP MED GIVEN PER ORDER. ICE WATER REFILLED. pt RESTING SAFELY IN BED WITH CALL LIGHT IN REACH, DENIES ANY OTHER NEEDS AT THIS TIME.
--- NOTE | 2019-11-02 01:41 | NUR ---
2ND pt ASSESSMENT COMPLETED, VS AND I+O's COMPLETED, pt RATES PAIN 6/10 DENIES NEED FOR PRN PAIN MEDS BUT CONTINUES TO USE ICE PACK, ICE WATER REFILLED AND MORE CRACKERS BROUGHT TO pt. pt RESTING IN BED SAFELY WITH CALL LIGHT IN REACH, DENIES ANY OTHER NEEDS AT THIS TIME
--- NOTE | 2019-11-02 04:31 | NUR ---
pt CALLED C/O PAIN, RATES PAIN 8/10. INCREASED SWELLING OF LEFT JAW/NECK OBSERVED, pt DENIES SHOB OR DIFFICULTY SWALLOWING. PRN PAIN MEDS GIVEN PER REQUEST/ORDER. ICE WATER REFILLED, NEW ICE PACK GIVEN, pt RESTING SAFELY IN BED CALL LIGHT IN REACH, DENIES ANY FURTHER NEEDS AT THIS TIME.
--- NOTE | 2019-11-02 05:31 | NUR ---
pt STRUGGLED TO REST THROUGHOUT THE NIGHT. IND IN ROOM, ON ROOM AIR. SWELLING INCREASED OF LEFT JAW UP TO EAR AND DOWN NECK, pt DENIES SOB OR DIFFICULTY SWALLOWING.PRN PAIN AND NAUSEA MEDS GIVEN PER REQUEST/ORDER, ICE PACK GIVEN PER REQUEST. pt A+OX3 USING CALL LIGHT APPROPRIATELY. IV FLUIDS INFUSING PER ORDER.
--- NOTE | 2019-11-02 06:10 | NUR ---
AM MEDS GIVEN PER ORDER, pt RATES PAIN 5/10 DENIES NEED FOR PRN PAIN MEDS. pt RESTING SAFELY IN BED CALL LIGHT IN REACH, DENIES ANY OTHER NEEDS AT THIS TIME
--- NOTE | 2019-11-02 07:35 | NUR ---
PATIENT RESTING IN BED. PATIENT'S BREAKFAST ORDERED. CALL LIGHT WITHIN REACH. NO OTHER NEEDS AT THIS TIME
--- NOTE | 2019-11-02 09:00 | NUR ---
Spoke with Seema, he states he is tired and has a headache as he did not sleep last night. Pain is less in his l jaw. 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 He has been working from home as ordered by Dr. Perkins due to his decreased immune system. He lives in [place] with his second in a one story house without steps. He has two children from his first marriage. Has two years until he will retire. States concerns as he has several chronic health concerns. He plans on discharge to home when he is cleared medically to leave. States he has good support from . Discussed I will assist him with any needs for a safe discharge to home.
--- NOTE | 2019-11-02 09:19 | NUR ---
RECEIVED REPORT FROM APPLICATIONS CONSULTANT TIA THIS AM. PT SLEEPING ANS PER PT REQUEST DID NOT DO BEDSIDE REPORT. PT APPEARS TO BE RESTING AT THIS TIME, RESPORATIONS NOTED. ON ASSESSMENT AT 0900 PT REPORTS A HEADACHE, PT STATES HE DOES NOT WANT MORE DILUADID AT THIS TIME BUT WOULD LIKE TYLENOL, PROVIDED PT WITH TYLENOL FOR HEADACHE. PT STATES THAT HIS JAW PAIN IS FEELING MUCH BETTER 3/10, TOLERABLE PAIN. CALL LIGHT WITHIN REACH, NO OTHER CONCERNS AT THIS TIME.
--- NOTE | 2019-11-02 09:41 | NUR ---
PATIENT RESTING IN BED. VITAL SIGNS DONE BY RN. I&O DONE. CALL LIGHT WITHIN REACH. NO OTHER NEEDS AT THIS TIME
--- NOTE | 2019-11-02 11:33 | NUR ---
KARYN FROM TO START TYLENOL 1000MG AT 1400 WITH ZOSYN ANTIBIOTIC
--- NOTE | 2019-11-02 11:35 | NUR ---
PT STATES THAT HE WOULD LIKE TO TAKE A NAP. DISCUSSED WITH PT THAT THERE ARE SOME MEDS DUE AT 1400 SO WE WILL NOT COME IN HIS UNTIL THEN. PT STATED THAT HE WAS NAUSEOUS, PROVIDED PT WITH 4MG IV OF ZOFRAN.
--- NOTE | 2019-11-02 14:01 | NUR ---
PT ALERT, OREINTED AND EATING A LATE LUNCH. PT TOLD ME HAD JUST GOT THIS WEEKEND AND IS SPENDING HIS [place] WITH US HERE AT [facility]. DIFFICULT BEING APART FROM HIS NEW [place]IDE, BUT UNDERSTANDS. FEELS BETTER TODAY, SHARED BRIEFLY WITH ME HIS SPIRITUAL JOURNEY AND HOW GOD HAS ALWAYS BEEN WITH HIM. GAVE BLESSING AND LET PT FINISH HIS LUNCH. PT REQUESTED A RETURN VISIT, WILL FOLLOW UP
--- NOTE | 2019-11-02 14:21 | NUR ---
PATIENT RESTING IN BED. RN AND RN STUDENT IN ROOM. VITAL SIGNS DONE BY RN. I&O DONE. CALL LIGHT WITHIN REACH. NO OTHER NEEDS AT THIS TIME
--- NOTE | 2019-11-02 14:21 | NUR ---
PT REPORTS A HEADACHE. PROVIDED PT WTIH TYLENOL. PT STATES HE IS FEELING BETTER AFTER A NAP. PT HAS HIS CALL LIGHT AND PERSONAL PHONE WITHIN REACH
--- NOTE | 2019-11-02 15:15 | NUR ---
PT REQUESTED TO TAKE A SHOWER. ASSISTED PT TO SET UP FOR A SHOWER. PT CALLS APPROPRIATELY
--- NOTE | 2019-11-02 16:18 | NUR ---
checked on pt, pt appears to be sleeping, respirations noted at this time. call light is within reach
--- NOTE | 2019-11-02 17:51 | NUR ---
PATIENT RESTING IN BED. VITAL SIGNS AND I&O DONE. PATIENT'S DINER ORDERED. CALL LIGHT WITHIN REACH. NO OTHER NEEDS AT THIS TIME
--- NOTE | 2019-11-02 17:57 | NUR ---
PT AWAKE FOR VITALS TO BE TAKEN. PT ORDERED DINNER AT THIS TIME. CALL LIGHT WITHIN REACH
--- NOTE | 2019-11-02 18:22 | NUR ---
AT THE BEGINNING OF SHIFT PT HAD A 5/10 HEADACHE. PT SELF REPORTS HE THINKS ITS FROM THE DILUADID, PT NO LONGER WANTS DILUADID, ON 1000MG TYLENOL TID. PT SLEPT MOST OF DAY. CLUSTERED CARE. D/C CONTINUOUS FLUID, ENCOURAGE PT TO INCREASE FLUID INTAKE. PT AD-EFRAÍN IN ROOM. CALLS APPROPRIATELY. PT SHOWERED TODAY.
--- NOTE | 2019-11-02 19:30 | NUR ---
SHIFT REPORT RECEIVED FROM RN's PERRY AND LIOR, pt AWAKE AND SITTING UP IN BED SAFELY WITH CALL LIGHT IN REACH. pt DENIES ANY NEEDS AT THIS TIME
--- NOTE | 2019-11-02 20:30 | NUR ---
pt ASSESSMENT COMPLETED, VS AND I+O's COMPLETED. pt RATES PAIN 5/10, SCHEDULED PAIN MEDS GIVEN PER ORDER. pt GIVEN NEW ICE WATER, ICE PACK, CHIPS, AND COFFE PER REQUEST. pt RESTING SAFELY IN BED WITH CALL LIGHT IN REACH, DENIES ANY OTHER NEEDS AT THIS TIME.
--- NOTE | 2019-11-02 22:33 | NUR ---
PRN SLEEP MED GIVEN PER REQUEST/ORDER. pt RESTING SAFELY IN BED WITH CALL LIGHT IN REACH, DENIES ANY OTHER NEEDS AT THIS TIME
--- NOTE | 2019-11-03 | NUR ---
pt RESTING IN BED SAFELY WITH EYES CLOSED, RR EVEN AND UNLABORED. CALL LIGHT IN REACH
--- NOTE | 2019-11-03 02:24 | NUR ---
2nd pt ASSESSMENT COMPLETED, pt RATES PAIN 4/10 DENIES NEED FOR PRN PAIN MEDS. NEW ICE PACK, ICE WATER, CRACKERS, AND CUP OF COFFEE GIVEN PER REQUEST. 2nd DOSE OF abx INFUSING PER ORDERS. pt RESTING SAFELY IN BED WITH CALL LIGHT IN REACH, DENIES ANY OTHER NEEDS AT THIS TIME.
--- NOTE | 2019-11-03 04:16 | NUR ---
pt RESTING SAFELY IN BED WITH EYES CLOSED, RR EVEN AND UNLABORED, CALL LIGHT IN REACH.
--- NOTE | 2019-11-03 04:20 | NUR ---
pt RESTED ON/OFF THROUGHOUT THE NIGHT. IND IN ROOM, ON ROOM AIR. SWELLING DECREASED OF LEFT JAW UP TO EAR AND DOWN NECK, pt DENIES SOB OR DIFFICULTY SWALLOWING.SCHEDULED TYLENOL GIVEN FOR PAIN PER ORDER, ICE PACK GIVEN PER REQUEST. pt A+OX3 USING CALL LIGHT APPROPRIATELY. IV SL.
--- NOTE | 2019-11-03 06:30 | NUR ---
0600 VS AND I+O's COMPLETED, pt's THYROID MEDICATION GIVEN PER ORDER. pt GIVEN FRESH ICE WATER PER REQUEST, pt CALLED DOWN TO [facility] AND ORDERED BREAKFAST. pt RESTING SAFELY IN BED WITH CALL LIGHT IN REACH DENIES ANY OTHER NEEDS AT THIS TIME
--- NOTE | 2019-11-03 07:34 | NUR ---
RECIEVED BED SIDE REPORT. PT STATES NO NEEDS AT THIS TIME. HAS ORDERED BREAKFAST.
--- NOTE | 2019-11-03 09:58 | NUR ---
PT RESTING IN BED. HOPING TO GET A LITTLE NAP IN. NO NEEDS AT THIS TIME. CALL LIGHT WITHIN REACH.
--- NOTE | 2019-11-03 11:00 | NUR ---
Attempted to speak with pt. x 2. Sign on door states sleeping. Not awakened, will follow up tomorrow.
--- NOTE | 2019-11-03 11:15 | NUR ---
SLOANE HARO INFORMED ME THAT PT WOULD LIKE TO REST AND NOT HAVE ANY STAFF IN FOR AWHILE. WILL CHECK BACK
--- NOTE | 2019-11-03 11:54 | NUR ---
PT AWAKE AND RESTING IN BED. SAID HE WOULD CALL DOWN HIS LUNCH ORDER IN A LITTLE BIT. STATES NO NEEDS AT THIS TIME. HE FEELS THAT THE SWELLING HAS GOTTEN BETTER BUT SEEMS TO HAVE QUIT REDUCING NOW. HE DISCUSSED THIS WITH THE
--- NOTE | 2019-11-03 12:54 | NUR ---
PT ALERT, ORIENTED, WATCHING TV. HAD AN ENGAGING VISIT WITH PT. HE SHARED WITH ME SOME OF HIS MED HISTORY THAT MAKES HIS LIFE VERY CHALLENGING. PT FEELS GOD HAS SPARED HIS LIFE AND GUIDED TO WHERE HIS LIFE IS TODAY-ESPECIALLY WITH ALL OF THE ISSUES HE FACES MEDICALLY. A LITTLE DISCOURAGED THAT THE INFECTION IS THIS STUBBORN, DR GARZA IS SEEKING INFECTION SPECIALIST INPUT INTO HIS CARE. PT REQUESTED PRAYER, LUNCH WAS DELIVERED.
--- NOTE | 2019-11-03 14:00 | NUR ---
AFTERNOON ASSESSMENT COMPLETE. PAIN 4/10 ON THE LEFT SIDE OF THE FACE JAW AREA. WILL GIVE TYLENOL NOW. PT DENIES NEED FOR STRONGER PAIN MEDICATION OR FURTHER NEEDS.
--- NOTE | 2019-11-03 15:21 | NUR ---
PATIENT IS RESTING.
--- NOTE | 2019-11-03 16:39 | NUR ---
PT JUST WOKE UP FROM [facility]. STATES NO NEEDS AT THIS TIME.
--- NOTE | 2019-11-03 18:10 | NUR ---
1540 IMAGES PUSHED TO [facility], PER DR. GARZA.
--- NOTE | 2019-11-03 18:33 | NUR ---
PT WORKING ON DINNER TRAY. LT SIDE OF FACE STILL SWOLLEN BUT HASN'T LOOKED ANY MORE SWOLLEN THROUGHOUT THE DAY. NO NEEDS AT THIS TIME.
--- NOTE | 2019-11-03 19:03 | NUR ---
IN ROOM FOR REPORT, PT DENIES NEEDS AT THIS TIME. CALL LIGHT IS CLOSE.
--- NOTE | 2019-11-03 20:37 | NUR ---
IN ROOM TO ASSESS PT AND ADMINISTER MEDICATIONS. PT RATES PAIN 3/10 AT THIS TIME. HE REPORTS SWELLING IN JAW IS DECREASED. IV ABX ARE INFUSING AT THIS TIME. DR GARZA IS IN ROOM TALKING WITH PT. CALL LIGHT IS CLOSE.
--- NOTE | 2019-11-03 22:21 | NUR ---
SL PT'S IV SO HE CAN TAKE A SHOWER.
--- NOTE | 2019-11-03 22:30 | NUR ---
pt got IV wrapped so he could shower.
--- NOTE | 2019-11-03 23:00 | NUR ---
pt told me he was finished with shower and i cleaned up his room. He also requested a cup of coffee. Nothing further needed at this time.
--- NOTE | 2019-11-03 23:03 | NUR ---
PT IS DONE WITH SHOWER. IV IS NOW INFUSING AGAIN. PT DENIES NEEDS. CALL LIGHT IS CLOSE.
--- NOTE | 2019-11-04 00:37 | NUR ---
PT NOT ABLE TO SLEEP, ADMINISTERED [place]. HE DENIES FURTHER NEEDS AT THIS TIME. CALL LIGHT IS WITHIN REACH.
--- NOTE | 2019-11-04 02:38 | NUR ---
PT IS RESTING WITH EYES CLOSED, RR IS EVEN AND NONLABORED. IV IS INFUSING FINE. CALL LIGHT IS CLOSE.
--- NOTE | 2019-11-04 04:01 | NUR ---
PT IS RESTING WITH EYES CLOSED. RR ARE EVEN AND NONLABORED. CALL LIGHT IS CLOSE.
--- NOTE | 2019-11-04 05:25 | NUR ---
PT IS AWAKE IN RESTROOM AT THIS TIME.
--- NOTE | 2019-11-04 06:05 | NUR ---
ADMINISTERED THROID MEDICATION. FRESH WATER GIVEN TO PT AND HE DENIES FURTHER NEEDS AT THIS TIME. CALL LIGHT IS CLOSE.
--- NOTE | 2019-11-04 06:17 | NUR ---
PT IS RECEIVING IV ABX CLEOCIN AND ZOSYN. HE HAS LR INFUSING AT 125MLS/HR. HE IS ON A 2G SODIUM DIET. HE AMBULATES INDEPENDENTLY IN THE ROOM AND WALKED THE HALLS LAST NIGHT. PT FEELS THE SWELLING HAS COME DOWN SOME.
--- NOTE | 2019-11-04 07:10 | NUR ---
REPORT RECEIVED FROM PILLOWCASE CUTTER RN. PT IN BED WATCHING TV. RESPIRAIOTNS EQUAL AND NONLABORED. DENIES PAIN AT THIS TIME. FLUIDS INFUSING ORDERED.CALL LIGHT IN REACH.
--- NOTE | 2019-11-04 09:00 | NUR ---
Discussed pt with Dr. Rodríguez in 829 meeting. He's awaiting a return call for pt to either discharge and transport himself to [place] or transfer to [place] for removal of Partoid gland. In and spoke with Seema. He would like to discharge and have his drive him to [place]. He is concerned about the cost of an ambulance ride. States his biggest concern is he will have diarrhea on the way. C/o of loose stools since starting his antibiotics. Told him I will notify Dr. Rodríguez. Pt feels he isn't making improvement and if antibiotics stop his infection will return. Also states concern he will build a resistance to the antibiotics.
--- NOTE | 2019-11-04 09:30 | NUR ---
Spoke with Abbey. States she is not feeling well today. She is very tired. Updated I have spoken with Brenna at [facility] and she will check with Housing to see if there is anything available when Abbey leaves the SNF. I also updated, I have spoken with [facility], and they have sent auth to medicaid. Pt will more than likely remain hospitalized through the weekend with placement to SNF next week. Pt twitches frequently during the conversation and has difficulty answering questions. Response is very slow.
--- NOTE | 2019-11-04 10:26 | NUR ---
PATIENT IS RESTING.
--- NOTE | 2019-11-04 10:39 | NUR ---
ASSESSMENT COMPLETED. LEFT JAW SWELLING NOTED. LUNGS CLEAR, HEART SOUNDS REGULAR. REPORTS PAIN 3/10. BOWEL TONES HYPERACTIVE, PT REPORTING VERY LOOSE STOOL, 3 OF THEM. STATES,"ITS FROM THE ANTIBIOTICS". NO OTHER CONCERNS. PT INDEPENDENT IN ROOM.
--- NOTE | 2019-11-04 11:07 | NUR ---
PT ASLEEP, DID NOT DISTURB. WILL CHECK BACK
--- NOTE | 2019-11-04 13:08 | NUR ---
ROUNDED WITH DR GARZA. PLAN OF CARE DISCUSSED.
--- NOTE | 2019-11-04 15:16 | NUR ---
ABX STARTED. PT REFUSED TYLENOL CITING MINIMAL PAIN. NO NEEDS. CALL LIGHT IN REACH.
[2019-11-04] MEDS ORDERED: CULTURELLE1 EAC1 PO (15:35)
[2019-11-04] MEDS ORDERED: CLINDAMYCIN HC300 MG PO (15:37)
== END 2019-11-04 16:35 | disposition home or self-care (01) | DRG 155 ==
LOC: ED 10:30 → MS 14:31
PROVIDERS: ADMIT Internal Medicine
DX: K11.22 Acute recurrent sialoadenitis (principal); K50.90 Crohn's disease, unspecified, without complications; F33.9 Major depressive disorder, recurrent, unspecified; N18.4 Chronic kidney disease, stage 4 (severe); N11.9 Chronic tubulo-interstitial nephritis, unspecified; E03.9 Hypothyroidism, unspecified; I10 Essential (primary) hypertension; G47.33 Obstructive sleep apnea (adult) (pediatric); M46.90 Unspecified inflammatory spondylopathy, site unspecified; Z88.5 Allergy status to narcotic agent; Z88.8 Allergy status to other drugs, medicaments and biological substances; Z85.828 Personal history of other malignant neoplasm of skin; Z79.899 Other long term (current) drug therapy; Z79.51 Long term (current) use of inhaled steroids
CPT/HCPCS: 36415; 70490; 80048; 80053; 82164; 84155; 84165; 85025; 85651; 86140; 86235; 86256; 86703; 96374; 99284-25; J1170; J1650; J2405; J2543; J7121

== ENCOUNTER 2019-12-22 01:54 | Emergency (ER) | payer OTHER ==
[~2019-12-22] VITALS: Ht 182.9 cm; Wt 88.5 kg
--- OUTSIDE RECORDS SUMMARY | ~2019-12-22 | XMS | Encounter Summary ---
Demographics + + + | Address | [address] | | | [place] [address] | + + + | Home Phone | | + + + | Preferred Language | Unknown | + + + | Marital Status | | + + + | Oriental Orthodox Affiliation | 1041 | + + + | Race | Unknown | + + + | Ethnic Group | Unknown | + + + Author + + + | Author | [facility] | | | and [place] | + + + | Organization | [facility] | | | and [place] | + + + | Address | Unknown | + + + | Phone | Unavailable | + + + Support + + + + + | Name | Relationship | Address | Phone | + + + + + | Ryan Oneill | ECON | [place], [place] | | | | | [address] | | + + + + + | Misty Boateng | ECON | [address] | | | | | [place], [place] | | | | | [address] | | + + + + + Care Team Providers + +------+ + | Care Eeo Officer Name | Role | Phone | + +------+ + PCP | Unavailable | + +------+ + Encounter Details +--------+ + + + + | Date | Type | Department | Care Team | Description | +--------+ + + + + | 08/25/ | Orders Only | [facility] | Christine Martinez, | CKD (chronic kidney | | 2018 | | NEPHROLOGY [address] | disease) stage 4, | | | | [address] | [address] [place] | GFR 15-29 ml/min | | | | [place], [place] | [place] [address] | ([facility]) (Primary Dx); | | | | [address] | [phone] | Interstitial | | | | [phone] | | nephritis chronic | +--------+ + + + + Social History + +-------+ +--------+ + | Tobacco Use | Types | Packs/Day | Years | Date | | | | | Used | | + +-------+ +--------+ + | Former Smoker | | | | 07/20/1985 - | | | | | | 07/20/2002 | + +-------+ +--------+ + + +---+---+---+ | Smokeless Tobacco: | | | | | Never Used | | | | + +---+---+---+ + + +---------+ + | Alcohol Use | Drinks/Week | oz/Week | Comments | + + +---------+ + | Yes | 0 Standard drinks | 0.0 | rarely | | | or equivalent | | | + + +---------+ + + + + | Sex Assigned at | Date Recorded | | | | + + + | Not on file | | + + + + + + + | Job Start Date | Occupation | Industry | + + + + | Not on file | Not on file | Not on file | + + + + + + + + | Travel History | Travel Start | Travel End | + + + + + + | No recent travel history available. | + + documented as of this encounter Progress Notes Jonathan Campuzano RN - 08/25/2017 2:25 PM PSTLabs for nephrology appt on 09/22/17 sent to [facility]. Abhishek painter in this encounter Plan of Treatment +--------+---------+ + + + | Date | Type | Specialty | Care Team | Description | +--------+---------+ + + + | 03/20/ | Office | Nephrology | Christine Martinez, | | | 2019 | Visit | | MD Monica Manzanares | | | | | | [address] | | | | | | [place] [address] | | | | | | [phone] | | | | | | | | +--------+---------+ + + + documented as of this encounter Visit Diagnoses + + | Diagnosis | + + | CKD (chronic kidney disease) stage 4, GFR 15-29 ml/min ([facility]) - Primary Chronic kidney | | disease, Stage IV (severe) | + + | 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
--- OUTSIDE RECORDS SUMMARY | ~2019-12-22 | XMS | Encounter Summary ---
Demographics + + + | Address | [address] [place] [address] | | | [place] [address] | + + + | Home Phone | | + + + | Preferred Language | Unknown | + + + | Marital Status | | + + + | Baptist Affiliation | CHR | + + + | Race | White | + + + | Ethnic Group | Not or | + + + Author + + + | Author | [facility] | + + + | Organization | [facility] | + + + | Address | Unknown | + + + | Phone | Unavailable | + + + Support + + +---------+ + | Name | Relationship | Address | Phone | + + +---------+ + | Misty Oneill | ECON | Unknown | | + + +---------+ + Care Team Providers + +------+ + | Care Php Engineer Name | Role | Phone | + +------+ + | Hai Holman MD | PCP | | + +------+ + Reason for Visit + + + | Reason | Comments | + + + | KP Waitlist | routine check in | + + + Encounter Details +--------+ + + + + | Date | Type | Department | Care Team | Description | +--------+ + + + + | 08/28/ | Telephone | Clinical | Thi Aden, | Waitlist (routine | | 2018 | | Transplant Services | RN [address] | check in) | | | | [address] | [address] | | | | | [place], | [place], [place] | | | | | [place] [address] | [address] | | | | | [phone] | | | +--------+ + + + + Social History + + + +--------+------+ | Tobacco Use | Types | Packs/Day | Years | Date | | | | | Used | | + + + +--------+------+ | Former Smoker | Cigarettes | 0.5 | 16 | | + + + +--------+------+ + +---+---+---+ | Smokeless Tobacco: | | | | | Former User | | | | + +---+---+---+ + + | Comments: Stopped cigaretes in 2002, stopped chewing 2010. | + + + + +---------+ + | Alcohol Use | Drinks/Week | oz/Week | Comments | + + +---------+ + | No | 0 Standard drinks | 0.0 | None since renal | | | or equivalent | | failure progressed | + + +---------+ + + + [...] + + documented as of this encounter Plan of Treatment Not on filedocumented as of this encounter Visit Diagnoses Not on filedocumented in this encounter"
--- OUTSIDE RECORDS SUMMARY | ~2019-12-22 | XMS | Encounter Summary ---
Demographics + + + | Address | [address] [place] [address] | | | [place] [address] | + + + | Home Phone | | + + + | Preferred Language | Unknown | + + + | Marital Status | | + + + | Sabianism Affiliation | CHR | + + + | Race | White | + + + | Ethnic Group | Not or | + + + Author + + + | Author | [facility] | + + + | Organization | [facility] | + + + | Address | Unknown | + + + | Phone | Unavailable | + + + Support + + +---------+ + | Name | Relationship | Address | Phone | + + +---------+ + | Misty Oneill | ECON | Unknown | | + + +---------+ + Care Team Providers + +------+ + | Care Brownfield Redevelopment Specialist Name | Role | Phone | + +------+ + | Hai Holman MD | PCP | | + +------+ + Reason for Visit + + + | Reason | Comments | + + + | Committee Review | | | Summary | | + + + Encounter Details +--------+ + + + + | Date | Type | Department | Care Team | Description | +--------+ + + + + | 09/11/ | Committee | Clinical | Thi Aden, | Committee Review | | 2016 | Review | Transplant Services | RN [address] | Summary | | | | [address] | [address] | | | | | [place], | [place], [place] | | | | | [place] [address] | [address] | | | | | [phone] | | | +--------+ + + + [...]
--- OUTSIDE RECORDS SUMMARY | ~2019-12-22 | XMS | Encounter Summary ---
Demographics + + + | Address | [address] [place] [address] | | | [place] [address] | + + + | Home Phone | | + + + | Preferred Language | Unknown | + + + | Marital Status | | + + + | Restoration Affiliation | CHR | + + + | Race | White | + + + | Ethnic Group | Not or | + + + Author + + + | Author | [facility] | + + + | Organization | [facility] | + + + | Address | Unknown | + + + | Phone | Unavailable | + + + Support + + +---------+ + | Name | Relationship | Address | Phone | + + +---------+ + | Misty Oneill | ECON | Unknown | | + + +---------+ + Care Team Providers + +------+ + | Care Cigarette Machines Mechanic Name | Role | Phone | + +------+ + | Jt Perkins MD | PCP | | + +------+ + Encounter Details +--------+ + + + + | Date | Type | Department | Care Team | Description | +--------+ + + + + | 11/14/ | Documentati | Otolaryngology | Tim Skinner MD | | | 2020 | on | Head and Neck | [address] | | | | | Surgery Services at | [place], | | | | | [facility] [address] | [place] [address] | | | | | [place] Mailcode: | [phone] | | | | | [facility] | | | | | | and Healing, | | | | | | [address] | | | | | | [place], [place] | | | | | | [address] | | | | | | [phone] | | | +--------+ + + + + Social History + + + +--------+------+ | Tobacco Use | Types | Packs/Day | Years | Date | | | | | Used | | + + + +--------+------+ | Former Smoker | Cigarettes | 0.5 | 16 | | + + + +--------+------+ + +------+---+ + | Smokeless Tobacco: | Chew | | Quit: | | Former User | | | 11/08/19 | | | | | 19 | + +------+---+ + + + | Comments: Stopped cigaretes in [...]
--- OUTSIDE RECORDS SUMMARY | ~2019-12-22 | XMS | Encounter Summary ---
Demographics + + + | Address | [address] [place] [address] | | | [place] [address] | + + + | Home Phone | | + + + | Preferred Language | Unknown | + + + | Marital Status | | + + + | Judaism Affiliation | CHR | + + + | Race | White | + + + | Ethnic Group | Not or | + + + Author + + + | Author | [facility] | + + + | Organization | [facility] | + + + | Address | Unknown | + + + | Phone | Unavailable | + + + Support + + +---------+ + | Name | Relationship | Address | Phone | + + +---------+ + | Misty Oneill | ECON | Unknown | | + + +---------+ + Care Team Providers + +------+ + | Care Consumer Insights Intern Name | Role | Phone | + +------+ + | Jt Perkins MD | PCP | | + +------+ + Encounter Details +--------+ + + + + | Date | Type | Department | Care Team | Description | +--------+ + + + + | 11/28/ | Orders Only | Preoperative | Chantale Tam, | | | 2019 | | Medicine Clinic at | [place], [place] | | | | | [facility] | [address] | | | | | [address] | | | | | | Mail Code: [id number] | | | | | | [facility] | | | | | | and Healing, | | | | | | [address] | | | | | | [place], [place] | | | | | | [address] | | | | | | [phone] | | | +--------+ + + + [...]
--- OUTSIDE RECORDS SUMMARY | ~2019-12-22 | XMS | Encounter Summary ---
Demographics + + + | Address | [address] | | | [place] [address] | + + + | Home Phone | | + + + | Preferred Language | Unknown | + + + | Marital Status | | + + + | Religion Affiliation | 1041 | + + + | Race | Unknown | + + + | Ethnic Group | Unknown | + + + Author + + + | Author | [facility] | | | and [place] | + + + | Organization | [facility] | | | and [place] | + + + | Address | Unknown | + + + | Phone | Unavailable | + + + Support + + + + + | Name | Relationship | Address | Phone | + + + + + | Ryan Oneill | ECON | [place], [place] | | | | | [address] | | + + + + + | Misty Boateng | ECON | [address] | | | | | [place] | | | | | [address] | | + + + + + Care Team Providers + +------+ + | Care Drying Supervisor Name | Role | Phone | + +------+ + | Jt Perkins MD | PCP | | + +------+ + Reason for Visit + + + | Reason | Comments | + + + | Blood Pressure | | + + + | Medication | amlodipine | | Management | | + + + Encounter Details +--------+ + + + + | Date | Type | Department | Care Team | Description | +--------+ + + + + | 12/29/ | Telephone | [facility] | Christine Martinez W, | Blood Pressure; | | 2018 | | NEPHROLOGY [address] | Medication | | | | [address] | [address] [facility] | Management | | | | [place] | [place] [address] | (amlodipine) | | | | [address] | [phone] | | | | | [phone] | | | +--------+ + + + [...] as of this encounter Plan of Treatment +--------+---------+ + + + | Date | Type | Specialty | Care Team | Description | +--------+---------+ + + + | 03/20/ | Office | Nephrology | Christine Martinez, | | | 2019 | Visit | | MD Monica Manzanares | | | | | | [address] | | | | | | [place] [address] | | | | | | [phone] | | | | | | | | +--------+---------+ + + + documented as of this encounter Visit Diagnoses Not on filedocumented in this encounter"
--- OUTSIDE RECORDS SUMMARY | ~2019-12-22 | XMS | Encounter Summary ---
Demographics + + + | Address | [address] [address] | | | [place] [address] | + + + | Home Phone | | + + + | Preferred Language | Unknown | + + + | Marital Status | | + + + | Cheondoism Affiliation | 1041 | + + + | Race | Unknown | + + + | Ethnic Group | Unknown | + + + Author + + + | Author | [facility] | | | and [place] | + + + | Organization | [facility] | | | and [place] | + + + | Address | Unknown | + + + | Phone | Unavailable | + + + Support + + + + + | Name | Relationship | Address | Phone | + + + + + | Ryan Oneill | ECON | [place], [place] | | | | | [address] | | + + + + + | Misty Boateng | ECON | [address] | | | | | [place], [place] | | | | | [address] | | + + + + + Care Team Providers + +------+ + | Care Beater Lead Name | Role | Phone | + +------+ + PCP | Unavailable | + +------+ + Encounter Details +--------+ + + + + | Date | Type | Department | Care Team | Description | +--------+ + + + + | 01/07/ | Abstract | [facility] | Christine Martinez W, | | | 2016 | | NEPHROLOGY [address] | | | | | [address] | [address] [place] | | | | | [place], [place] | [place] [address] | | | | | [address] | [phone] | | | | | [phone] | | | +--------+ + + + + Social History + +-------+ +--------+ + | Tobacco Use | Types | Packs/Day | Years | Date | | | | | Used | | + +-------+ +--------+ + | Former Smoker | | | | 07/20/1985 - | | | | | | 07/20/2002 | + +-------+ +--------+ + + + +---------+ + | Alcohol [...] | | 2019 | Visit | | [address] | | | | | | [address] | | | | | | [place] [address] | | | | | | [phone] | | | | | | | | +--------+---------+ + + + documented as of this encounter Procedures + +--------+ + + + | Procedure Name | Priori | Date/Time | Associated Diagnosis | Comments | | | ty | | | | + +--------+ + + + | EXTERNAL LAB: [facility] | Routin | 01/05/2017 | | Results for this | | TOTAL | e | | | procedure are in the | | | | | | results section. | + +--------+ + + + documented in this encounter Results External Lab: [facility] (01/05/2017) + + + + + + | Component | Value | Ref Range | Performed | Pathologist | | | | | At | Signature | + + + + + + | [facility], [facility], | 53,714 (A) | 24 - 195 | EXTERNAL | | | External | | | LAB | | + + + + + + + +---------+ + + | Performing | Address | City/State/Zipcode | Phone Number | | Organization | | | | + +---------+ + + | EXTERNAL LAB | | | | + +---------+ + + documented in this encounter Visit Diagnoses Not on filedocumented in this encounter"
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
--- OUTSIDE RECORDS SUMMARY | ~2019-12-22 | XMS | Encounter Summary ---
Demographics + + + | Address | [address] [place] [address] | | | [place] [address] | + + + | Home Phone | | + + + | Preferred Language | Unknown | + + + | Marital Status | | + + + | Catholic Affiliation | CHR | + + + | Race | White | + + + | Ethnic Group | Not or | + + + Author + + + | Author | [facility] | + + + | Organization | [facility] | + + + | Address | Unknown | + + + | Phone | Unavailable | + + + Support + + +---------+ + | Name | Relationship | Address | Phone | + + +---------+ + | Misty Oneill | ECON | Unknown | | + + +---------+ + Care Team Providers + +------+ + | Care Therapeutic Assistant Name | Role | Phone | + +------+ + | Hai Holman MD | PCP | | + +------+ + Reason for Referral Consultation (Routine) +--------+--------+ + + + + | Status | Reason | Specialty | Diagnoses / | Referred By | Referred To | | | | | Procedures | Contact | Contact | +--------+--------+ + + + + | Closed | | Non [facility] | Diagnoses | [facility] Trans | Non-[facility] | | | | Department | Chronic | Coord Renal | Epic Dept | | | | | kidney | [address] | | | | | | disease, | [place] | | | | | | stage IV | [address] | | | | | | (severe) | [place], [place] | | | | | | (HCC) | [address] | | | | | | Benign | Phone: | | | | | | hypertension | [phone] | | | | | | Procedures | Fax: | | | | | | CONSULT TO | [phone] | | | | | | NON - [facility] | | | | | | | PROVIDER | | | +--------+--------+ + + + + Reason for Visit + + + | Reason | Comments | + + + | Tx Recommendation | Review of Committee Decision | | Tracking | | + + + Encounter Details +--------+ + + + + | Date | Type | Department | Care Team | Description | +--------+ + + + + | 09/20/ | Telephone | Clinical | Thi Aden, | Tx Recommendation | | 2016 | | Transplant Services | RN [address] | Tracking (Review of | | | | [address] | [address] | Committee Decision) | | | | [address] [place], | [place], [place] | | | | | [place] [address] | [address] | | | | | [phone] | | | +--------+ + + + [...] filedocumented as of this encounter Visit Diagnoses + + | Diagnosis | + + | Chronic kidney disease, stage IV (severe) (HCC) - Primary Chronic kidney disease, | | Stage IV (severe) | + + | Benign hypertension Essential hypertension, benign | + + documented in this encounter"
--- OUTSIDE RECORDS SUMMARY | ~2019-12-22 | XMS | Encounter Summary ---
Demographics + + + | Address | [address] | | | [place] [address] | + + + | Home Phone | | + + + | Preferred Language | Unknown | + + + | Marital Status | | + + + | Congregation Affiliation | 1041 | + + + | Race | Unknown | + + + | Ethnic Group | Unknown | + + + Author + + + | Author | [facility] | | | and [place] | + + + | Organization | [facility] | | | and [place] | + + + | Address | Unknown | + + + | Phone | Unavailable | + + + Support + + + + + | Name | Relationship | Address | Phone | + + + + + | Ryan Oneill | ECON | [place], [place] | | | | | [address] | | + + + + + | Misty Boateng | ECON | [address] | | | | | [place], [place] | | | | | [address] | | + + + + + Care Team Providers + +------+ + | Care Post Commander Name | Role | Phone | + +------+ + PCP | Unavailable | + +------+ + Encounter Details +--------+ + + + + | Date | Type | Department | Care Team | Description | +--------+ + + + + | 10/03/ | Orders Only | [facility] | Christine Martinez W, | CKD (chronic kidney | | 2016 | | NEPHROLOGY [address] | disease) stage 4, | | | | [address] | [address] [place] | GFR 15-29 ml/min | | | | [place], [place] | [place] [address] | (HCC) (Primary Dx); | | | | [address] | [phone] | Anemia in CKD | | | | [phone] | | (chronic kidney | | | | | | disease) | +--------+ + + + + Social [...] documented as of this encounter Progress Notes Kenyatta Jacome RN - 10/04/2015 10:05 AM PDTInterpath documented in this encounter Plan of Treatment +--------+---------+ + + + | Date | Type | Specialty | Care Team | Description | +--------+---------+ + + + | 03/20/ | Office | Nephrology | Crhistine Martinez, | | | 2019 | Visit | | MD Monica Manzanares | | | | | | [address] [place] | | | | | | [place] [address] | | | | | | [phone] | | | | | | | | +--------+---------+ + + + + +------+--------+ + + | Name | Type | Priori | Associated Diagnoses | Order Schedule | | | | ty | | | + +------+--------+ + + | Renal Function Panel | Lab | Routin | CKD (chronic | Expected: 10/23/2015 | | | | e | kidney disease) | (Approximate), | | | | | stage 4, GFR 15-29 | Expires: 10/03/2016 | | | | | ml/min (HCC) Anemia | | | | | | in CKD (chronic | | | | | | kidney disease) | | + +------+--------+ + + | CBC with | Lab | Routin | CKD (chronic | Expected: 10/23/2015 | | Differential | | e | kidney disease) | (Approximate), | | | | | stage 4, GFR 15-29 | Expires: 10/03/2016 | | | | | ml/min ([facility]) Anemia | | | | | | in CKD (chronic | | | | | | kidney disease) | | + +------+--------+ + + documented as of this encounter Visit Diagnoses + + | Diagnosis | + + | CKD (chronic kidney disease) stage 4, GFR 15-29 ml/min ([facility]) - Primary Chronic kidney | | disease, Stage IV (severe) | + + | Anemia in CKD (chronic kidney disease) Anemia in chronic kidney disease | + + documented in this encounter"
--- OUTSIDE RECORDS SUMMARY | ~2019-12-22 | XMS | Encounter Summary ---
Demographics + + + | Address | [address] [place] [address] | | | [place] [address] | + + + | Home Phone | | + + + | Preferred Language | Unknown | + + + | Marital Status | | + + + | Gnosticism Affiliation | CHR | + + + | Race | White | + + + | Ethnic Group | Not or | + + + Author + + + | Author | [facility] | + + + | Organization | [facility] | + + + | Address | Unknown | + + + | Phone | Unavailable | + + + Support + + +---------+ + | Name | Relationship | Address | Phone | + + +---------+ + | Misty Oneill | ECON | Unknown | | + + +---------+ + Care Team Providers + +------+ + | Care Intraoperative Neuro Tech Name | Role | Phone | + +------+ + | Jt Perkins MD | PCP | | + +------+ + Encounter Details +--------+ + + + + | Date | Type | Department | Care Team | Description | +--------+ + + + + | 12/13/ | MyChart | Clinical | | Transplant Patient | | 2020 | Encounter | Transplant Services | | Precautions | | | | [address] | | | | | | [place], | | | | | | [place] [address] | | | | | | [phone] | | | +--------+ + + + [...] recent travel history available. | + + + + + + | COVID-19 Exposure | Response | Date Recorded | + + + + | In the last month, have you been in contact | No / Unsure | 12/05/2019 6:42 AM | | with someone who was confirmed or | | PDT | | suspected to have Coronavirus / COVID-19? | | | + + + + documented as of this encounter Plan of Treatment Not on filedocumented as of this encounter Visit Diagnoses Not on filedocumented in this encounter"
--- OUTSIDE RECORDS SUMMARY | ~2019-12-22 | XMS | Clinical Summary ---
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 [id number] | 02/18/20 | [phone] | | PPO | | | [facility] | | 17-Pre | 2 | | | | | E | | sent | | | | | | VOYAGE | | | | | | | | R | | | | | | + +--------+ +--------+ +---------+--------+ | [employer] | PACIFI | [id number] | 02/18/20 | [phone] | | Indemn | | | [employer] | | 17-Pre | 2 | | ity | | | E | | sent | | | | | | ADMIN | | | | | | | | PREF | | | | | | | | PSN | | | | | | + +--------+ +--------+ +---------+--------+ + +--------+ +--------+ + + | Guarantor Name | Accoun | Relation to | Date | Phone | Billing Address | | | t Type | Patient | of | | | | | | | | | | + +--------+ +--------+ + + | Dasha Veliz | Person | Self [birth year] | [address] | | | al/Fam | | 1970 | [address] | [address] [place], [place] | | | greg | | | 6 (Home) | [address] | | | | | | [phone] | | | | | | | 1 (Work) | | + +--------+ +--------+ + + | Dasha Veliz | Person | Self [birth year] | [address] | | | al/Fam | | 1970 | [phone] | [address] [place], [place] | | | greg | | | 6 (Home) | [address] | | | | | | [phone] | | | | | | | 1 (Work) | | + +--------+ +--------+ + + Advance Directives + + + + + | Type | Date Recorded | Patient | Explanation | | | | Payroll Coordinator | | + + + + + | Power of | | | | | Armature Repairer | | | | + + + + + | Advance | 11/08/2015 11:46 | | | | Directive | AM | | | + + + + +
--- OUTSIDE RECORDS SUMMARY | ~2019-12-22 | XMS | Encounter Summary ---
Demographics + + + | Address | [address] | | | [place] [address] | + + + | Home Phone | | + + + | Preferred Language | Unknown | + + + | Marital Status | | + + + | Shinto Affiliation | 1041 | + + + | Race | Unknown | + + + | Ethnic Group | Unknown | + + + Author + + + | Author | [facility] | | | and [place] | + + + | Organization | [facility] | | | and [place] | + + + | Address | Unknown | + + + | Phone | Unavailable | + + + Support + + + + + | Name | Relationship | Address | Phone | + + + + + | Ryan Oneill | ECON | [place], [place] | | | | | [address] | | + + + + + | Misty Boateng | ECON | [address] | | | | | [place], [place] | | | | | [address] | | + + + + + Care Team Providers + +------+ + | Care Casing Running Machine Tender Name | Role | Phone | + +------+ + PCP | Unavailable | + +------+ + Encounter Details +--------+ + + + + | Date | Type | Department | Care Team | Description | +--------+ + + + + | 06/02/ | Orders Only | [facility] | Christine Martinez W, | CKD (chronic kidney | | 2017 | | NEPHROLOGY [address] | disease) stage 4, | | | | [address] | [address] [place] | GFR 15-29 ml/min | | | | [place], [place] | [place] [address] | (HCC) (Primary Dx); | | | | [address] | [phone] | Anemia in stage 4 | | | | [phone] | | chronic kidney | | | | | | disease (HCC) | +--------+ + + + + Social [...] encounter Progress Notes Kenyatta Jacome RN - 06/02/2017 9:53 AM PSTLabs for upcoming nephrology appointment sent to: [facility] documented in this encounter Plan of Treatment +--------+---------+ + + + | Date | Type | Specialty | Care Team | Description | +--------+---------+ + + + | 03/20/ | Office | Nephrology | Martinez Christine Tirado, | | | 2019 | Visit | | [address] | | | | | | [address] [place] | | | | | | [place] [address] | | | | | | [phone] | | | | | | | | +--------+---------+ + + + documented as of this encounter Visit Diagnoses + + | Diagnosis | + + | CKD (chronic kidney disease) stage 4, GFR 15-29 ml/min ([facility]) - Primary Chronic kidney | | disease, Stage IV (severe) | + + | Anemia in stage 4 chronic kidney disease ([facility]) | + + documented in this encounter"
--- OUTSIDE RECORDS SUMMARY | ~2019-12-22 | XMS | Encounter Summary ---
Demographics + + + | Address | [address] | | | [place] [address] | + + + | Home Phone | | + + + | Preferred Language | Unknown | + + + | Marital Status | | + + + | Congregational Affiliation | 1041 | + + + | Race | Unknown | + + + | Ethnic Group | Unknown | + + + Author + + + | Author | [facility] | | | and [place] | + + + | Organization | [facility] | | | and [place] | + + + | Address | Unknown | + + + | Phone | Unavailable | + + + Support + + + + + | Name | Relationship | Address | Phone | + + + + + | Ryan Oneill | ECON | [place], [place] | | | | | [address] | | + + + + + | Misty Boateng | ECON | [address] | | | | | [place], [place] | | | | | [address] | | + + + + + Care Team Providers + +------+ + | Care Pigs Feet Cleaner Name | Role | Phone | + +------+ + PCP | Unavailable | + +------+ + Encounter Details +--------+ + + + + | Date | Type | Department | Care Team | Description | +--------+ + + + + | 06/25/ | Abstract | [facility] | Christine Martinez W, | | | 2014 | | NEPHROLOGY [address] | [address] | | | | | [address] | [address] [place] | | | | | [place], [place] | [place] [address] | | | | | [address] | [phone] | | | | | [phone] | | | +--------+ + + + [...] | | | | | [place] [address] | | | | | | [phone] | | | | | | | | +--------+---------+ + + + documented as of this encounter Procedures + +--------+ + + + | Procedure Name | Priori | Date/Time | Associated Diagnosis | Comments | | | ty | | | | + +--------+ + + + | EXTERNAL LAB: ROSHNI | Routin | 06/21/2015 | | Results for this | | | e | | | procedure are in the | | | | | | results section. | + +--------+ + + + | EXTERNAL LAB: OBDULIO | Routin | 06/21/2015 | | Results for this | | | e | | | procedure are in the | | | | | | results section. | + +--------+ + + + | EXTERNAL LAB: | Routin | 06/21/2015 | | Results for this | | ALKALINE PHOSPHATASE | e | | | procedure are in the | | | | | | results section. | + +--------+ + + + | EXTERNAL LAB: | Routin | 06/21/2015 | | Results for this | | BILIRUBIN, TOTAL | e | | | procedure are in the | | | | | | results section. | + +--------+ + + + | EXTERNAL LAB: | Routin | 06/21/2015 | | Results for this | | PROTEIN, TOTAL | e | | | procedure are in the | | | | | | results section. | + +--------+ + + + | EXTERNAL LAB: | Routin | 06/21/2015 | | Results for this | | VITAMIN D, | e | | | procedure are in the | | 25-HYDROXY | | | | results section. | + +--------+ + + + | EXTERNAL LAB: IRON | Routin | 06/21/2015 | | Results for this | | TOTAL | e | | | procedure are in the | | | | | | results section. | + +--------+ + + + | EXTERNAL LAB: IRON | Routin | 06/21/2015 | | Results for this | | SATURATION | e | | | procedure are in the | | | | | | results section. | + +--------+ + + + | EXTERNAL LAB: IRON | Routin | 06/21/2015 | | Results for this | | BINDING CAPACITY | e | | | procedure are in the | | | | | | results section. | + +--------+ + + + | EXTERNAL LAB: FLORENCE | Routin | 06/21/2015 | | Results for this | | | e | | | procedure are in the | | | | | | results section. | + +--------+ + + + | EXTERNAL LAB: FLORENCE | Routin | 06/21/2015 | | Results for this | | | e | | | procedure are in the | | | | | | results section. | + +--------+ + + + | ADAM PANEL, QUANT | Routin | 06/21/2015 | | Results for this | | | e | | | procedure are in the | | | | | | results section. | + +--------+ + + + | ANCA PANEL | Routin | 06/21/2015 | | Results for this | | | e | | | procedure are in the | | | | | | results section. | + +--------+ + + + | RHEUMATOID FACTOR, | Routin | 06/21/2015 | | Results for this | | FLUID | e | | | procedure are in the | | | | | | results section. | + +--------+ + + + documented in this encounter Results ADAM Panel, Quant (06/21/2015) + + + + + + | Component | Value | Ref Range | Performed | Pathologist | | | | | At | Signature | + + + + + + | ADAM Titer 1 | 1:80 | 1:80 | [facility] | | | | | | [facility] | | | | | | [facility] | | | | | [facility] - | | | | | | LABORATORY | | + + + + + + | ANAPATTERN | speckled | | [facility] | | | | | | [facility] | | | | | | [facility] | | | | | | [facility] - | | | | | | LABORATORY | | + + + + + + | dsDNA Ab | none detected | | [facility] | | | Titer | | | [facility] | | | | | | [facility] | | [facility] | | | C[facility] - | | | | | | LABORATORY | | + + + + + + | BAUTISTA | 0.5 | | [facility] | | | ANTIBODY | | | [facility] | | | | | | [facility] | | | | | | CENTER - | | | | | | LABORATORY | | + + + + + + | CENTROMERE | none detected | | [facility] | | | AB SCREEN | | | [facility] | | | | | | [facility]ICAL | | | | | | CENTER - | | | | | | LABORATORY | | + + + + + + | SJOGREN'S | 1.1 | | [facility] | | | AB | | | [facility] | | | | | | MEDICAL | | | | | | CENTER - | | | | | | LABORATORY | | + + + + + + | CHILANGO-1 | 0.4 | | [facility] | | | autoantibod | | | [facility] | | | y IgG | | | MEDICAL | | | | | | CENTER - | | | | | | LABORATORY | | + + + + + + | Histone Ab | 0 | 100 U/mL | [facility] | | | | | | [facility] | | | | | | [facility] | | | | | | C[facility] - | | | | | | LABORATORY | | + + + + + + + + | Specimen | + + | Blood specimen | | (specimen) | + + + + + + + | Performing | Address | City/State/Zipcode | Phone Number | | Organization | | | | + + + + + | [facility] | [address] | [place] | [phone] | | [facility] | | [address] | | | - LABORATORY | | | | + + + + + ANCA Panel (06/21/2015) + +-------+ + + + | Component | Value | Ref Range | Performed | Pathologist | | | | | At | Signature | + +-------+ + + + | Myeloperoxi | 0.1 | 0 - 0.9 | [facility] | | | dase | | [facility] | | | Antibody | | | MEDICAL | | | | | | CENTER - | | | | | | LABORATORY | | + +-------+ + + + | Proteinase | 0.4 | 0 - 0.9 | [facility] | | | 3 Antibody | | | [facility] | | | | | | MEDICAL | | | | | | CENTER - | | | | | | LABORATORY | | + +-------+ + + + + + | Specimen | + + | Blood specimen | | (specimen) | + + + + + + + | Performing | Address | City/State/Zipcode | Phone Number | | Organization | | | | + + + + + | [facility] | [address] | [place] | [phone] | | [facility] | | [address] | | | - LABORATORY | | | | + + + + + Rheumatoid Factor, Body Fluid (06/21/2015) + +-------+ + + + | Component | Value | Ref Range | Performed | Pathologist | | | | | At | Signature | + +-------+ + + + | RHEUMATOID | <10 | 20 | [facility] | | | FACTOR, | | | [facility] | | | BODY FLUID | | | MEDICAL | | | | | | CENTER - | | | | | | LABORATORY | | + +-------+ + + + + + | Specimen | + + | Body fluid sample | | (specimen) | + + + + + + + | Performing | Address | City/State/Zipcode | Phone Number | | Organization | | | | + + + + + | [facility] | [address] | [place] | [phone] | | [facility] | | [address] | | | - LABORATORY | | | | + + + + + External Lab: Iron Total (06/21/2015) + +-------+ + + + | Component | Value | Ref Range | Performed | Pathologist | | | | | At | Signature | + +-------+ + + + | Iron, | 66.66 | 37 - 160 | EXTERNAL | | | External | | | LAB | | + +-------+ + + + + +---------+ + + | Performing | Address | City/State/Zipcode | Phone Number | | Organization | | | | + +---------+ + + | EXTERNAL LAB | | | | + +---------+ + + External Lab: Iron Saturation (06/21/2015) + +-------+ + + + | Component | Value | Ref Range | Performed | Pathologist | | | | | At | Signature | + +-------+ + + + | Iron | 23.1 | 20 | EXTERNAL | | | Saturation, | | | LAB | | | External | | | | | + +-------+ + + + + +---------+ + + | Performing | Address | City/State/Zipcode | Phone Number | | Organization | | | | + +---------+ + + | EXTERNAL LAB | | | | + +---------+ + + External Lab: Iron Binding Capacity (06/21/2015) + +-------+ + + + | Component | Value | Ref Range | Performed | Pathologist | | | | | At | Signature | + +-------+ + + + | Iron | 289 | | EXTERNAL | | | Binding | | | LAB | | | Capacity, | | | | | | External | | | | | + +-------+ + + + + +---------+ + + | Performing | Address | City/State/Zipcode | Phone Number | | Organization | | | | + +---------+ + + | EXTERNAL LAB | | | | + +---------+ + + External Lab: Vitamin D, 25-Hydroxy (06/21/2015) + +--------+ + + + | Component | Value | Ref Range | Performed | Pathologist | | | | | At | Signature | + +--------+ + + + | Vitamin D, | 24 (A) | 30 | EXTERNAL | | | 25-Hydroxy, | | | LAB | | | External | | | | | + +--------+ + + + + + | Specimen | + + | Blood specimen | | (specimen) | + + + +---------+ + + | Performing | Address | City/State/Zipcode | Phone Number | | Organization | | | | + +---------+ + + | EXTERNAL LAB | | | | + +---------+ + + External Lab: CBC (06/21/2015) + + + + + + | Component | Value | Ref Range | Performed | Pathologist | | | | | At | Signature | + + + + + + | HGB, | 10.6 (A) | 13.5 - 18 | EXTERNAL | | | External | | | LAB | | + + + + + + | HCT, | 32.3 (A) | 35 - 45 | EXTERNAL | | | External | | | LAB | | + + + + + + | PLT, | 192 | 140 - 440 | EXTERNAL | | | External | | | LAB | | + + + + + + | MCV, | 90 | 81 - 99 | EXTERNAL | | | External | | | LAB | | + + + + + + | RDW, | 13.8 | 10.5 - 15 | EXTERNAL | | | External | | | LAB | | + + + + + + + +---------+ + + | Performing | Address | City/State/Zipcode | Phone Number | | Organization | | | | + +---------+ + + | EXTERNAL LAB | | | | + +---------+ + + External Lab: ALT (06/21/2015) + +-------+ + + + | Component | Value | Ref Range | Performed | Pathologist | | | | | At | Signature | + +-------+ + + + | ALT, | 10 | | EXTERNAL | | | External | | | LAB | | + +-------+ + + + + +---------+ + + | Performing | Address | City/State/Zipcode | Phone Number | | Organization | | | | + +---------+ + + | EXTERNAL LAB | | | | + +---------+ + + External Lab: AST (06/21/2015) + +-------+ + + + | Component | Value | Ref Range | Performed | Pathologist | | | | | At | Signature | + +-------+ + + + | AST, | 8 | | EXTERNAL | | | External | | | LAB | | + +-------+ + + + + +---------+ + + | Performing | Address | City/State/Zipcode | Phone Number | | Organization | | | | + +---------+ + + | EXTERNAL LAB | | | | + +---------+ + + External Lab: Alkaline Phosphatase (06/21/2015) + +-------+ + + + | Component | Value | Ref Range | Performed | Pathologist | | | | | At | Signature | + +-------+ + + + | ALP, | 63 | | EXTERNAL | | | External | | | LAB | | + +-------+ + + + + +---------+ + + | Performing | Address | City/State/Zipcode | Phone Number | | Organization | | | | + +---------+ + + | EXTERNAL LAB | | | | + +---------+ + + External Lab: Bilirubin, Total (06/21/2015) + +-------+ + + + | Component | Value | Ref Range | Performed | Pathologist | | | | | At | Signature | + +-------+ + + + | Bilirubin, | 0.5 | | EXTERNAL | | | Total, | | | LAB | | | External | | | | | + +-------+ + + + + +---------+ + + | Performing | Address | City/State/Zipcode | Phone Number | | Organization | | | | + +---------+ + + | EXTERNAL LAB | | | | + +---------+ + + External Lab: Protein, Total (06/21/2015) + +-------+ + + + | Component | Value | Ref Range | Performed | Pathologist | | | | | At | Signature | + +-------+ + + + | Protein, | 6.6 | | EXTERNAL | | | Total, | | | LAB | | | External | | | | | + +-------+ + + + + +---------+ + + | Performing | Address | City/State/Zipcode | Phone Number | | Organization | | | | + +---------+ + + | EXTERNAL LAB | | | | + +---------+ + + External Lab: CBC (06/21/2015) + + + + + + | Component | Value | Ref Range | Performed | Pathologist | | | | | At | Signature | + + + + + + | WBC, | 9.7 | 8.4 - 10.2 | EXTERNAL | | | External | | | LAB | | + + + + + + | RBC, | 3.56 (A) | 4 | EXTERNAL | | | External | [...]
--- OUTSIDE RECORDS SUMMARY | ~2019-12-22 | XMS | Encounter Summary ---
Demographics + + + | Address | [address] | | | [place] [address] | + + + | Home Phone | | + + + | Preferred Language | Unknown | + + + | Marital Status | | + + + | Restorationist Affiliation | 1041 | + + + | Race | Unknown | + + + | Ethnic Group | Unknown | + + + Author + + + | Author | [facility] | | | and [place] | + + + | Organization | [facility] | | | and [place] | + + + | Address | Unknown | + + + | Phone | Unavailable | + + + Support + + + + + | Name | Relationship | Address | Phone | + + + + + | Ryan Oneill | ECON | [place], [place] | | | | | [address] | | + + + + + | Misty Boateng | ECON | [address] | | | | | [place], [place] | | | | | [address] | | + + + + + Care Team Providers + +------+ + | Care Artificial Breeding Distributor Name | Role | Phone | + +------+ + PCP | Unavailable | + +------+ + Encounter Details +--------+ + + + + | Date | Type | Department | Care Team | Description | +--------+ + + + + | 10/01/ | Orders Only | [facility] | Christine Martinez W, | Chronic kidney | | 2016 | | NEPHROLOGY [address] | disease, stage V | | | | [address] | [address] [place] | ([facility]) (Primary Dx) | | | | [place], [place] | [place] [address] | | | | | [address] | [phone] | | | | | [phone] | | | +--------+ + + + [...] | | | | | [address] | | | | | | [place] [address] | | | | | | [phone] | | | | | | | | +--------+---------+ + + + + +------+--------+ + + | Name | Type | Priori | Associated Diagnoses | Order Schedule | | | | ty | | | + +------+--------+ + + | Hepatitis B Surface | Lab | Routin | Chronic kidney | Expected: 10/02/2015 | | Ab | | e | disease, stage V | (Approximate), | | | | | (HCC) | Expires: 10/02/2016 | + +------+--------+ + + | Hepatitis B Surface | Lab | Routin | Chronic kidney | Expected: 10/02/2015 | | Ag | | e | disease, stage V | (Approximate), | | | | | (HCC) | Expires: 10/02/2016 | + +------+--------+ + + | Hepatitis B Core Ab, | Lab | Routin | Chronic kidney | Expected: | | Total | | e | disease, stage V | 10/02/2015, Expires: | | | | | (HCC) | 10/01/2016 | + +------+--------+ + + documented as of this encounter Visit Diagnoses + + | Diagnosis | + + | Chronic kidney disease, stage V (HCC) - Primary Chronic kidney disease, Stage V | + + documented in this encounter"
--- OUTSIDE RECORDS SUMMARY | ~2019-12-22 | XMS | Encounter Summary ---
Demographics + + + | Address | [address] [place] [address] | | | [place] [address] | + + + | Home Phone | | + + + | Preferred Language | Unknown | + + + | Marital Status | | + + + | Congregation Affiliation | CHR | + + + | Race | White | + + + | Ethnic Group | Not or | + + + Author + + + | Author | [facility] | + + + | Organization | [facility] | + + + | Address | Unknown | + + + | Phone | Unavailable | + + + Support + + +---------+ + | Name | Relationship | Address | Phone | + + +---------+ + | Misty Oneill | ECON | Unknown | | + + +---------+ + Care Team Providers + +------+ + | Care Scraper Hand Name | Role | Phone | + +------+ + | Hai Holman MD | PCP | | + +------+ + Reason for Visit + + + | Reason | Comments | + + + | 

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
--- OUTSIDE RECORDS SUMMARY | ~2019-12-22 | XMS | Encounter Summary ---
Demographics + + + | Address | [address] | | | [place] [address] | + + + | Home Phone | | + + + | Preferred Language | Unknown | + + + | Marital Status | | + + + | Zoroastrian Affiliation | 1041 | + + + | Race | Unknown | + + + | Ethnic Group | Unknown | + + + Author + + + | Author | [facility] | | | and [place] | + + + | Organization | [facility] | | | and [place] | + + + | Address | Unknown | + + + | Phone | Unavailable | + + + Support + + + + + | Name | Relationship | Address | Phone | + + + + + | Ryan Oneill | ECON | [place], [place] | | | | | [address] | | + + + + + | Misty Boateng | ECON | [address] | | | | | [place], [place] | | | | | [address] | | + + + + + Care Team Providers + +------+ + | Care Emergency Medical Technician/Driver Name | Role | Phone | + +------+ + PCP | Unavailable | + +------+ + Encounter Details +--------+ + + + + | Date | Type | Department | Care Team | Description | +--------+ + + + + | 07/09/ | Abstract | [facility] | Christine Martinez W, | | | 2014 | | NEPHROLOGY [address] | | | | | [address] | [address] [place] | | | | | [place], [place] | [place] [address] | | | | | [address] | [phone] | | | | | [phone] | | | +--------+ + + + [...] | | | | | [place] [address] | | | | | | [phone] | | | | | | | | +--------+---------+ + + + documented as of this encounter Procedures + +--------+ + + + | Procedure Name | Priori | Date/Time | Associated Diagnosis | Comments | | | ty | | | | + +--------+ + + + | EXTERNAL LAB: ANIVAL | Routin | 07/09/2015 | | Results for this | | | e | | | procedure are in the | | | | | | results section. | + +--------+ + + + | EXTERNAL LAB: | Routin | 07/09/2015 | | Results for this | | GLUCOSE | e | | | procedure are in the | | | | | | results section. | + +--------+ + + + | EXTERNAL LAB: | Routin | 07/09/2015 | | Results for this | | ALBUMIN | e | | | procedure are in the | | | | | | results section. | + +--------+ + + + | EXTERNAL LAB: | Routin | 07/09/2015 | | Results for this | | PHOSPHORUS | e | | | procedure are in the | | | | | | results section. | + +--------+ + + + | EXTERNAL LAB: | Routin | 07/09/2015 | | Results for this | | CALCIUM | e | | | procedure are in the | | | | | | results section. | + +--------+ + + + | EXTERNAL LAB: CARBON | Routin | 07/09/2015 | | Results for this | | DIOXIDE | e | | | procedure are in the | | | | | | results section. | + +--------+ + + + | EXTERNAL LAB: | Routin | 07/09/2015 | | Results for this | | CHLORIDE | e | | | procedure are in the | | | | | | results section. | + +--------+ + + + | EXTERNAL LAB: | Routin | 07/09/2015 | | Results for this | | POTASSIUM | e | | | procedure are in the | | | | | | results section. | + +--------+ + + + | EXTERNAL LAB: SODIUM | Routin | 07/09/2015 | | Results for this | | | e | | | procedure are in the | | | | | | results section. | + +--------+ + + + | EXTERNAL LAB: EGFR | Routin | 07/09/2015 | | Results for this | | | e | | | procedure are in the | | | | | | results section. | + +--------+ + + + | EXTERNAL LAB: | Routin | 07/09/2015 | | Results for this | | CREATININE | e | | | procedure are in the | | | | | | results section. | + +--------+ + + + documented in this encounter Results External Lab: BUN (07/09/2015) + +--------+ + + + | Component | Value | Ref Range | Performed | Pathologist | | | | | At | Signature | + +--------+ + + + | ANIVAL, | 58 (A) | 6 - 23 | EXTERNAL | | | External | | | LAB | | + +--------+ + + + + +---------+ + + | Performing | Address | City/State/Zipcode | Phone Number | | Organization | | | | + +---------+ + + | EXTERNAL LAB | | | | + +---------+ + + External Lab: Glucose (07/09/2015) + +-------+ + + + | Component | Value | Ref Range | Performed | Pathologist | | | | | At | Signature | + +-------+ + + + | Glucose, | 93 | 70 - 100 | EXTERNAL | | | External | | | LAB | | + +-------+ + + + + +---------+ + + | Performing | Address | City/State/Zipcode | Phone Number | | Organization | | | | + +---------+ + + | EXTERNAL LAB | | | | + +---------+ + + External Lab: Albumin (07/09/2015) + +-------+ + + + | Component | Value | Ref Range | Performed | Pathologist | | | | | At | Signature | + +-------+ + + + | Albumin, | 4.1 | 3.5 - 5.1 | EXTERNAL | | | External | | | LAB | | + +-------+ + + + + +---------+ + + | Performing | Address | City/State/Zipcode | Phone Number | | Organization | | | | + +---------+ + + | EXTERNAL LAB | | | | + +---------+ + + External Lab: Phosphorus (07/09/2015) + +-------+ + + + | Component | Value | Ref Range | Performed | Pathologist | | | | | At | Signature | + +-------+ + + + | Phosphorus, | 4.8 | 2.5 - 5 | EXTERNAL | | | External | | | LAB | | + +-------+ + + + + +---------+ + + | Performing | Address | City/State/Zipcode | Phone Number | | Organization | | | | + +---------+ + + | EXTERNAL LAB | | | | + +---------+ + + External Lab: Calcium (07/09/2015) + +-------+ + + + | Component | Value | Ref Range | Performed | Pathologist | | | | | At | Signature | + +-------+ + + + | Calcium, | 8.9 | 8.4 - 10.2 | EXTERNAL | | | External | | | LAB | | + +-------+ + + + + +---------+ + + | Performing | Address | City/State/Zipcode | Phone Number | | Organization | | | | + +---------+ + + | EXTERNAL LAB | | | | + +---------+ + + External Lab: Carbon Dioxide (07/09/2015) + +-------+ + + + | Component | Value | Ref Range | Performed | Pathologist | | | | | At | Signature | + +-------+ + + + | Carbon | 21 | 19 - 32 | EXTERNAL | | | Dioxide, | | | LAB | | | External | | | | | + +-------+ + + + + +---------+ + + | Performing | Address | City/State/Zipcode | Phone Number | | Organization | | | | + +---------+ + + | EXTERNAL LAB | | | | + +---------+ + + External Lab: Chloride (07/09/2015) + +-------+ + + + | Component | Value | Ref Range | Performed | Pathologist | | | | | At | Signature | + +-------+ + + + | Chloride, | 103 | 100 - 110 | EXTERNAL | | | External | | | LAB | | + +-------+ + + + + +---------+ + + | Performing | Address | City/State/Zipcode | Phone Number | | Organization | | | | + +---------+ + + | EXTERNAL LAB | | | | + +---------+ + + External Lab: Potassium (07/09/2015) + +-------+ + + + | Component | Value | Ref Range | Performed | Pathologist | | | | | At | Signature | + +-------+ + + + | Potassium, | 4.3 | 3.5 - 5.1 | EXTERNAL | | | External | | | LAB | | + +-------+ + + + + +---------+ + + | Performing | Address | City/State/Zipcode | Phone Number | | Organization | | | | + +---------+ + + | EXTERNAL LAB | | | | + +---------+ + + External Lab: Sodium (07/09/2015) + +-------+ + + + | Component | Value | Ref Range | Performed | Pathologist | | | | | At | Signature | + +-------+ + + + | Sodium, | 137 | 135 - 145 | EXTERNAL | | | External | | | LAB | | + +-------+ + + + + +---------+ + + | Performing | Address | City/State/Zipcode | Phone Number | | Organization | | | | + +---------+ + + | EXTERNAL LAB | | | | + +---------+ + + External Lab: eGFR (07/09/2015) + +--------+ + + + | Component | Value | Ref Range | Performed | Pathologist | | | | | At | Signature | + +--------+ + + + | eGFR, | 18 (A) | 60 | EXTERNAL | | | External | | | LAB | | + +--------+ + + + + + | Specimen | + + | Blood specimen | | (specimen) | + + + +---------+ + + | Performing | Address | City/State/Zipcode | Phone Number | | Organization | | | | + +---------+ + + | EXTERNAL LAB | | | | + +---------+ + + External Lab: Creatinine (07/09/2015) + + + + + + | Component | Value | Ref Range | Performed | Pathologist | | | | | At | Signature | + + + + + + | Creatinine, | 3.64 (A) | 0.6 - 1.3 | EXTERNAL | | | External | [...]
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
--- OUTSIDE RECORDS SUMMARY | ~2019-12-22 | XMS | Encounter Summary ---
Demographics + + + | Address | [address] | | | [place] [address] | + + + | Home Phone | | + + + | Preferred Language | Unknown | + + + | Marital Status | | + + + | Mandaeism Affiliation | 1041 | + + + | Race | Unknown | + + + | Ethnic Group | Unknown | + + + Author + + + | Author | [facility] | | | and [place] | + + + | Organization | [facility] | | | and [place] | + + + | Address | Unknown | + + + | Phone | Unavailable | + + + Support + + + + + | Name | Relationship | Address | Phone | + + + + + | Ryan Oneill | ECON | [place], [place] | | | | | [address] | | + + + + + | Misty Boateng | ECON | [address] | | | | | [place], [place] | | | | | [address] | | + + + + + Care Team Providers + +------+ + | Care Clinical Product Specialist Name | Role | Phone | + +------+ + PCP | Unavailable | + +------+ + Encounter Details +--------+ + + + + | Date | Type | Department | Care Team | Description | +--------+ + + + + | 09/14/ | Abstract | [facility] | Christine Martinez W, | | | 2015 | | NEPHROLOGY [address] | [address] | | | | | [address] | [address] [place] | | | | | [place], [place] | [place] [address] | | | | | [address] | [phone] | | | | | [phone] | | | +--------+ + + + [...] | | | | | [place] [address] | | | | | | [phone] | | | | | | | | +--------+---------+ + + + documented as of this encounter Procedures + +--------+ + + + | Procedure Name | Priori | Date/Time | Associated Diagnosis | Comments | | | ty | | | | + +--------+ + + + | EXTERNAL LAB: ANIVAL | Routin | 09/12/2015 | | Results for this | | | e | | | procedure are in the | | | | | | results section. | + +--------+ + + + | EXTERNAL LAB: | Routin | 09/12/2015 | | Results for this | | GLUCOSE | e | | | procedure are in the | | | | | | results section. | + +--------+ + + + | EXTERNAL LAB: | Routin | 09/12/2015 | | Results for this | | ALBUMIN | e | | | procedure are in the | | | | | | results section. | + +--------+ + + + | EXTERNAL LAB: | Routin | 09/12/2015 | | Results for this | | PHOSPHORUS | e | | | procedure are in the | | | | | | results section. | + +--------+ + + + | EXTERNAL LAB: | Routin | 09/12/2015 | | Results for this | | CALCIUM | e | | | procedure are in the | | | | | | results section. | + +--------+ + + + | EXTERNAL LAB: CARBON | Routin | 09/12/2015 | | Results for this | | DIOXIDE | e | | | procedure are in the | | | | | | results section. | + +--------+ + + + | EXTERNAL LAB: | Routin | 09/12/2015 | | Results for this | | CHLORIDE | e | | | procedure are in the | | | | | | results section. | + +--------+ + + + | EXTERNAL LAB: | Routin | 09/12/2015 | | Results for this | | POTASSIUM | e | | | procedure are in the | | | | | | results section. | + +--------+ + + + | EXTERNAL LAB: SODIUM | Routin | 09/12/2015 | | Results for this | | | e | | | procedure are in the | | | | | | results section. | + +--------+ + + + | EXTERNAL LAB: EGFR | Routin | 09/12/2015 | | Results for this | | | e | | | procedure are in the | | | | | | results section. | + +--------+ + + + | EXTERNAL LAB: | Routin | 09/12/2015 | | Results for this | | CREATININE | e | | | procedure are in the | | | | | | results section. | + +--------+ + + + documented in this encounter Results External Lab: BUN (09/12/2015) + +--------+ + + + | Component | Value | Ref Range | Performed | Pathologist | | | | | At | Signature | + +--------+ + + + | ANIVAL, | 35 (A) | 6 - 23 | EXTERNAL | | | External | | | LAB | | + +--------+ + + + + +---------+ + + | Performing | Address | City/State/Zipcode | Phone Number | | Organization | | | | + +---------+ + + | EXTERNAL LAB | | | | + +---------+ + + External Lab: Glucose (09/12/2015) + +-------+ + + + | Component | Value | Ref Range | Performed | Pathologist | | | | | At | Signature | + +-------+ + + + | Glucose, | 82 | 70 - 100 | EXTERNAL | | | External | | | LAB | | + +-------+ + + + + +---------+ + + | Performing | Address | City/State/Zipcode | Phone Number | | Organization | | | | + +---------+ + + | EXTERNAL LAB | | | | + +---------+ + + External Lab: Albumin (09/12/2015) + +-------+ + + + | Component | Value | Ref Range | Performed | Pathologist | | | | | At | Signature | + +-------+ + + + | Albumin, | 4.4 | 3.5 - 5 | EXTERNAL | | | External | | | LAB | | + +-------+ + + + + +---------+ + + | Performing | Address | City/State/Zipcode | Phone Number | | Organization | | | | + +---------+ + + | EXTERNAL LAB | | | | + +---------+ + + External Lab: Phosphorus (09/12/2015) + +-------+ + + + | Component | Value | Ref Range | Performed | Pathologist | | | | | At | Signature | + +-------+ + + + | Phosphorus, | 3.8 | 2.5 - 5 | EXTERNAL | | | External | | | LAB | | + +-------+ + + + + +---------+ + + | Performing | Address | City/State/Zipcode | Phone Number | | Organization | | | | + +---------+ + + | EXTERNAL LAB | | | | + +---------+ + + External Lab: Calcium (09/12/2015) + +-------+ + + + | Component [...] +---------+ + + External Lab: Carbon Dioxide (09/12/2015) + +-------+ + + + | Component | Value | Ref Range | Performed | Pathologist | | | | | At | Signature | + +-------+ + + + | Carbon | 22 | 19 - 31 | EXTERNAL | | | Dioxide, | | | LAB | | | External | | | | | + +-------+ + + + + +---------+ + + | Performing | Address | City/State/Zipcode | Phone Number | | Organization | | | | + +---------+ + + | EXTERNAL LAB | | | | + +---------+ + + External Lab: Chloride (09/12/2015) + +-------+ + + + | Component | Value | Ref Range | Performed | Pathologist | | | | | At | Signature | + +-------+ + + + | Chloride, | 102 | 95 - 112 | EXTERNAL | | | External | | | LAB | | + +-------+ + + + + +---------+ + + | Performing | Address | City/State/Zipcode | Phone Number | | Organization | | | | + +---------+ + + | EXTERNAL LAB | | | | + +---------+ + + External Lab: Potassium (09/12/2015) + +-------+ + + + | Component [...] + +---------+ + + External Lab: Sodium (09/12/2015) + +-------+ + + + | Component | Value | Ref Range | Performed | Pathologist | | | | | At | Signature | + +-------+ + + + | Sodium, | 135 | 135 - 145 | EXTERNAL | | | External | | | LAB | | + +-------+ + + + + +---------+ + + | Performing | Address | City/State/Zipcode | Phone Number | | Organization | | | | + +---------+ + + | EXTERNAL LAB | | | | + +---------+ + + External Lab: eGFR (09/12/2015) + +--------+ + + + | Component | Value | Ref Range | Performed | Pathologist | | | | | At | Signature | + +--------+ + + + | eGFR, | 17 (A) | 60 | EXTERNAL | | [...] + +---------+ + + External Lab: Creatinine (09/12/2015) + + + + + + | Component | Value | Ref Range | Performed | Pathologist | | | | | At | Signature | + + + + + + | Creatinine, | 3.86 (A) | 0.6 - 1.3 | EXTERNAL [...]
--- OUTSIDE RECORDS SUMMARY | ~2019-12-22 | XMS | Encounter Summary ---
Demographics + + + | Address | [address] [place] [address] | | | [place] [address] | + + + | Home Phone | | + + + | Preferred Language | Unknown | + + + | Marital Status | | + + + | Zoroastrian Affiliation | CHR | + + + | Race | White | + + + | Ethnic Group | Not or | + + + Author + + + | Author | [facility] | + + + | Organization | [facility] | + + + | Address | Unknown | + + + | Phone | Unavailable | + + + Support + + +---------+ + | Name | Relationship | Address | Phone | + + +---------+ + | Misty Oneill | ECON | Unknown | | + + +---------+ + Care Team Providers + +------+ + | Care Etcher Printed Circuit Boards Name | Role | Phone | + +------+ + | Hai Holman MD | PCP | | + +------+ + Reason for Visit + + + | Reason | Comments | + + + | Lab Results | MDRD: 06/21/15 | + + + Encounter Details +--------+ + + + + | Date | Type | Department | Care Team | Description | +--------+ + + + + | 08/02/ | Abstract | Clinical | Santos Lorenzo, | Lab Results (MDRD: | | 2016 | | Transplant Services | [address] | 06/21/15) | | | | [address] | [address] | | | | | [place], | [place], [place] | | | | | [place] [address] | [address] | | | | | [phone] | [phone] | | | | | | | | +--------+ + + + + Social History + + + +--------+------+ | Tobacco Use | Types | Packs/Day | Years | Date | | | | | Used | | + + + +--------+------+ | Current Every Day | Cigarettes | 0.5 | 16 | | | Smoker | | | | | + + + +--------+------+ + +------+---+---+ | Smokeless Tobacco: | Chew | | | | Current User | | | | + +------+---+---+ + + | Comments: Stopped cigaretes in 2002, actively chews tobacco. | + + + + +---------+ + | Alcohol Use | Drinks/Week | oz/Week | Comments | + + +---------+ + | Yes | | | Rare | + + +---------+ + + + [...] Not on filedocumented as of this encounter Procedures + +--------+ + + + | Procedure Name | Priori | Date/Time | Associated Diagnosis | Comments | | | ty | | | | + +--------+ + + + | MDRD 6 | Routin | 06/21/2015 | | Results for this | | | e | | | procedure are in the | | | | | | results section. | + +--------+ + + + documented in this encounter Results MDRD 6 (06/21/2015) + + + + + + | Component | Value | Ref Range | Performed | Pathologist | | | | | At | Signature | + + + + + + | MDRD6 | 19.24 | | NON [facility] | | | | | | LAB | | + + + + + + | BUN, PLASMA | 46 (H) | mg/dL | NON [facility] | | | (LAB) | | | LAB | | + + + + + + | CREATININE | 3.67 (H) | mg/dL | NON [facility] | | | PLASMA | | | LAB | | | (LAB) | | | | | + + + + + + | ALBUMIN, | 3.9 | g/dL | NON [facility] | | | PLASMA | | | LAB | | | (LAB) | | | | | + + + + + + + + | Specimen | + + | Blood - Blood | + + + + + | Narrative | Performed At | + + + | [facility] [place] | NON [facility] | | [address] [address] | | |[place] [address] | | | | | + + + + +---------+ + + | Performing | Address | City/State/Zipcode | Phone Number | | Organization | | | | + +---------+ + + | NON [facility] | | | | + +---------+ + + documented in this encounter Visit Diagnoses Not on filedocumented in this encounter"
--- OUTSIDE RECORDS SUMMARY | ~2019-12-22 | XMS | Encounter Summary ---
Demographics + + + | Address | [address] | | | [place] [address] | + + + | Home Phone | | + + + | Preferred Language | Unknown | + + + | Marital Status | | + + + | Baptism Affiliation | 1041 | + + + | Race | Unknown | + + + | Ethnic Group | Unknown | + + + Author + + + | Author | [facility] | | | and [place] | + + + | Organization | [facility] | | | and [place] | + + + | Address | Unknown | + + + | Phone | Unavailable | + + + Support + + + + + | Name | Relationship | Address | Phone | + + + + + | Ryan Oneill | ECON | [place], [place] | | | | | [address] | | + + + + + | Misty Boateng | ECON | [address] | | | | | [place] | | | | | [address] | | + + + + + Care Team Providers + +------+ + | Care Forge Tender Name | Role | Phone | + +------+ + PCP | Unavailable | + +------+ + Reason for Referral Evaluate & Treat (Routine) +--------+ + + + + + | Status | Reason | Specialty | Diagnoses / | Referred By | Referred To | | | | | Procedures | Contact | Contact | +--------+ + + + + + | Closed | Specialty | Surgery | Diagnoses | Martinez, | Travis Randall Y, | | | Services | | Chronic | Christine Tirado, | [address] | | | Required | | kidney | [address] | | | | | disease, | [address] | | | | | stage IV | [address] [place] | [place], [place] | | | | | (severe) | [place], [place] | [address] | | | | | (HCC) | [address] | Phone: | | | | | | Phone: | [phone] | | | | | | [phone] | Fax: | | | | | | Fax: | [phone] | | | | | | [phone] | | +--------+ + + + + + Encounter Details +--------+ + + + + | Date | Type | Department | Care Team | Description | +--------+ + + + + | 08/29/ | Orders Only | [facility] [place] | Christine Martinez W, | Chronic kidney | | 2016 | | NEPHROLOGY [address] | [address] | disease, stage IV | | | | [address] | [address] [place] | (severe) (HCC) | | | | [place], [place] | [place] [address] | (Primary Dx) | | | | [address] | [phone] | | | | | [phone] | | | +--------+ + + + [...] encounter Progress Notes Kenyatta Jacome RN - 08/29/2015 8:14 AM PSTReferral packet to Dr. Randall faxed. Patient reports headaches started before starting amlodipine but have gotten worse, patient is interested in trying different BP med. Carvedilol 12.5 mg PO BID ordered for patient. Nehemiah wen reports most recent BP with increased amlodipine dose was 149/93. Patient notified of referral packet being sent to Dr. Randall's office. documented in this encounter Plan of Treatment +--------+---------+ + + + | Date | Type | Specialty | Care Team | Description | +--------+---------+ + + + | 03/20/ | Office | Nephrology | Christine Martinez, | | | 2019 | Visit | | [address] | | | | | | [address] [place] | | | | | | [place] [address] | | | | | | [phone] | | | | | | | | +--------+---------+ + + + + + +--------+ + + | Name | Type | Priori | Associated Diagnoses | Order Schedule | | | | ty | | | + + +--------+ + + | General Surgery, | Outpatient | Routin | Chronic kidney | Ordered: 08/29/2015 | | External - AMB | Referral | e | disease, stage IV | | | Referral | | | (severe) (HCC) | | + + +--------+ + + documented as of this encounter Visit Diagnoses + + | Diagnosis | + + | Chronic kidney disease, stage IV (severe) (HCC) - Primary Chronic kidney disease, | | Stage IV (severe) | + + documented in this encounter"
--- OUTSIDE RECORDS SUMMARY | ~2019-12-22 | XMS | Encounter Summary ---
Demographics + + + | Address | [address] [place] [address] | | | [place] [address] | + + + | Home Phone | | + + + | Preferred Language | Unknown | + + + | Marital Status | | + + + | Latter Day Affiliation | CHR | + + + | Race | White | + + + | Ethnic Group | Not or | + + + Author + + + | Author | [facility] | + + + | Organization | [facility] | + + + | Address | Unknown | + + + | Phone | Unavailable | + + + Support + + +---------+ + | Name | Relationship | Address | Phone | + + +---------+ + | Misty Oneill | ECON | Unknown | | + + +---------+ + Care Team Providers + +------+ + | Care Retail Salesworker Name | Role | Phone | + +------+ + | Jt Perkins MD | PCP | | + +------+ + Encounter Details +--------+ + + + + | Date | Type | Department | Care Team | Description | +--------+ + + + + | 11/22/ | Documentati | Otolaryngology | Tim Skinner MD | | | 2020 | on | Head and Neck | [address] | | | | | Surgery Services at | [place], | | | | | [facility] [address] | [place] [address] | | | | | [place] Mailcode: | [phone] | | | | | [facility] | | | | | | and Healing, | | | | | | [address] | | | | | | [place], [place] | | | | | | [address] | | | | | | [phone] | | | +--------+ + + + [...]
--- OUTSIDE RECORDS SUMMARY | ~2019-12-22 | XMS | Encounter Summary ---
Demographics + + + | Address | [address] [place] [address] | | | [place] [address] | + + + | Home Phone | | + + + | Preferred Language | Unknown | + + + | Marital Status | | + + + | Advent Affiliation | CHR | + + + | Race | White | + + + | Ethnic Group | Not or | + + + Author + + + | Author | [facility] | + + + | Organization | [facility] | + + + | Address | Unknown | + + + | Phone | Unavailable | + + + Support + + +---------+ + | Name | Relationship | Address | Phone | + + +---------+ + | Misty Onelil | ECON | Unknown | | + + +---------+ + Care Team Providers + +------+ + | Care Corporate Tutor Name | Role | Phone | + +------+ + | Hai Holman MD | PCP | | + +------+ + Reason for Visit + + + | Reason | Comments | + + + | KP Waitlist | | + + + Encounter Details +--------+ + + + + | Date | Type | Department | Care Team | Description | +--------+ + + + + | 03/19/ | Telephone | Clinical | Thi Aden, | KP Waitlist | | 2017 | | Transplant Services | RN [address] | | | | | [address] | [address] | | | | | Kait Barrios [place], | [place], [place] | | | | | [place] [address] | [address] | | | | | [phone] | | | +--------+ + + + [...]
--- OUTSIDE RECORDS SUMMARY | ~2019-12-22 | XMS | Encounter Summary ---
Demographics + + + | Address | [address] [place] [address] | | | [place] [address] | + + + | Home Phone | | + + + | Preferred Language | Unknown | + + + | Marital Status | | + + + | Orthodox Affiliation | CHR | + + + | Race | White | + + + | Ethnic Group | Not or | + + + Author + + + | Author | [facility] | + + + | Organization | [facility] | + + + | Address | Unknown | + + + | Phone | Unavailable | + + + Support + + +---------+ + | Name | Relationship | Address | Phone | + + +---------+ + | Misty Oneill | ECON | Unknown | | + + +---------+ + Care Team Providers + +------+ + | Care Music Adapter Name | Role | Phone | + +------+ + | Hai Holman MD | PCP | | + +------+ + Encounter Details +--------+ + + + + | Date | Type | Department | Care Team | Description | +--------+ + + + + | 08/17/ | Abstract | Clinical | Santos Lorenzo, | | | 2015 | | Transplant Services | [address] | | | | | [address] | [address] | | | | | Kait [place], | [place], [place] | | | | | [place] [address] | [address] | | | | | [phone] | [phone] | | | | | | | [...]
--- OUTSIDE RECORDS SUMMARY | ~2019-12-22 | XMS | Encounter Summary ---
Demographics + + + | Address | [address] [place] [address] | | | [place] [address] | + + + | Home Phone | | + + + | Preferred Language | Unknown | + + + | Marital Status | | + + + | Holiness Affiliation | CHR | + + + [...] Team Providers + +------+ + | Care Commercial Lines Sales Executive Name | Role | Phone | + +------+ + | Jt Perkins MD | PCP | | + +------+ + Encounter Details +--------+ + + + + | Date | Type | Department | Care Team | Description | +--------+ + + + + | 11/06/ | Abstract | Otolaryngology | Tim Skinner MD | | | 2020 | | Head and Neck | [address] | | | | | Surgery Services at | [place], | | | | | [facility] [address] | [place] [address] | | | | | Ave Mailcode: | [phone] | | | | | [facility] | | | | | | and Healing, | | | | | | [address] | | | | | | [place], [place] | | | | | | [address] | | | | | | [phone] | | | +--------+ + + + [...]
--- OUTSIDE RECORDS SUMMARY | ~2019-12-22 | XMS | Encounter Summary ---
Demographics + + + | Address | [address] [address] | | | [place] [address] | + + + | Home Phone | | + + + | Preferred Language | Unknown | + + + | Marital Status | | + + + | Yazidi Affiliation | 1041 | + + + | Race | Unknown | + + + | Ethnic Group | Unknown | + + + Author + + + | Author | [facility] | | | and [place] | + + + | Organization | [facility] | | | and [place] | + + + | Address | Unknown | + + + | Phone | Unavailable | + + + Support + + + + + | Name | Relationship | Address | Phone | + + + + + | Ryan Oneill | ECON | [place], [place] | | | | | [address] | | + + + + + | Misty Boateng | ECON | [address] | | | | | [place], [place] | | | | | [address] | | + + + + + Care Team Providers + +------+ + | Care Senior Telecommunications Specialist Name | Role | Phone | + +------+ + PCP | Unavailable | + +------+ + Encounter Details +--------+ + + + + | Date | Type | Department | Care Team | Description | +--------+ + + + + | 05/24/ | Abstract | [facility] | Christine Martinez W, | | | 2014 | | NEPHROLOGY [address] | MD [address] | | | | | [address] | [address] [place] | | | | | [place], [place] | [place] [address] | | | | | [address] | [phone] | | | | | [phone] | | | +--------+ + + + + Social History + +-------+ +--------+------+ | Tobacco Use | Types | Packs/Day | Years | Date | | | | | Used | | + +-------+ +--------+------+ | Former Smoker | | | | | + +-------+ +--------+------+ + + +---------+ + | Alcohol Use [...] | | | | | [place] [address] | | | | | | [phone] | | | | | | | | +--------+---------+ + + + documented as of this encounter Procedures + +--------+ + + + | Procedure Name | Priori | Date/Time | Associated Diagnosis | Comments | | | ty | | | | + +--------+ + + + | EXTERNAL LAB: BUN | Routin | 05/23/2015 | | Results for this | | | e | | | procedure are in the | | | | | | results section. | + +--------+ + + + | EXTERNAL LAB: | Routin | 05/23/2015 | | Results for this | | GLUCOSE | e | | | procedure are in the | | | | | | results section. | + +--------+ + + + | EXTERNAL LAB: | Routin | 05/23/2015 | | Results for this | | ALBUMIN | e | | | procedure are in the | | | | | | results section. | + +--------+ + + + | EXTERNAL LAB: | Routin | 05/23/2015 | | Results for this | | PHOSPHORUS | e | | | procedure are in the | | | | | | results section. | + +--------+ + + + | EXTERNAL LAB: | Routin | 05/23/2015 | | Results for this | | CALCIUM | e | | | procedure are in the | | | | | | results section. | + +--------+ + + + | EXTERNAL LAB: CARBON | Routin | 05/23/2015 | | Results for this | | DIOXIDE | e | | | procedure are in the | | | | | | results section. | + +--------+ + + + | EXTERNAL LAB: | Routin | 05/23/2015 | | Results for this | | CHLORIDE | e | | | procedure are in the | | | | | | results section. | + +--------+ + + + | EXTERNAL LAB: | Routin | 05/23/2015 | | Results for this | | POTASSIUM | e | | | procedure are in the | | | | | | results section. | + +--------+ + + + | EXTERNAL LAB: SODIUM | Routin | 05/23/2015 | | Results for this | | | e | | | procedure are in the | | | | | | results section. | + +--------+ + + + | EXTERNAL LAB: | Routin | 05/23/2015 | | Results for this | | VITAMIN D, | e | | | procedure are in the | | 25-HYDROXY | | | | results section. | + +--------+ + + + | EXTERNAL LAB: PTH, | Routin | 05/23/2015 | | Results for this | | INTACT | e | | | procedure are in the | | | | | | results section. | + +--------+ + + + | EXTERNAL LAB: | Routin | 05/23/2015 | | Results for this | | PROTEIN/CREATININE | e | | | procedure are in the | | RATIO | | | | results section. | + +--------+ + + + | EXTERNAL LAB: EGFR | Routin | 05/23/2015 | | Results for this | | | e | | | procedure are in the | | | | | | results section. | + +--------+ + + + | EXTERNAL LAB: | Routin | 05/23/2015 | | Results for this | | CREATININE | e | | | procedure are in the | | | | | | results section. | + +--------+ + + + documented in this encounter Results External Lab: Protein/Creatinine Ratio (05/23/2015) + + + + + + | Component | Value | Ref Range | Performed | Pathologist | | | | | At | Signature | + + + + + + | Protein/Cre | 0.272 (A) | 0.15 | | | | atinine | | | | | | Ratio, | | | | | | External | | | | | + + + + + + + + | Specimen | + + | | + + External Lab: PTH, Intact (05/23/2015) + + + + + + | Component | Value | Ref Range | Performed | Pathologist | | | | | At | Signature | + + + + + + | PTH Intact, | 82.86 (A) | 12 - 65 | | | | External | | | | | + + + + + + + + | Specimen | + + | | + + External Lab: ANIVAL (05/23/2015) + +--------+ + + + | Component | Value | Ref Range | Performed | Pathologist | | | | | At | Signature | + +--------+ + + + | BUN, | 34 (A) | 6 - 23 | EXTERNAL | | | External | | | LAB | | + +--------+ + + + + +---------+ + + | Performing | Address | City/State/Zipcode | Phone Number | | Organization | | | | + +---------+ + + | EXTERNAL LAB | | | | + +---------+ + + External Lab: Glucose (05/23/2015) + +-------+ + + + | Component | Value | Ref Range | Performed | Pathologist | | | | | At | Signature | + +-------+ + + + | Glucose, | 90 | 70 - 100 | EXTERNAL | | | External | | | LAB | | + +-------+ + + + + +---------+ + + | Performing | Address | City/State/Zipcode | Phone Number | | Organization | | | | + +---------+ + + | EXTERNAL LAB | | | | + +---------+ + + External Lab: Albumin (05/23/2015) + +-------+ + + + | Component | Value | Ref Range | Performed | Pathologist | | | | | At | Signature | + +-------+ + + + | Albumin, | 4.6 | 3.5 - 5 | EXTERNAL | | | External | | | LAB | | + +-------+ + + + + +---------+ + + | Performing | Address | City/State/Zipcode | Phone Number | | Organization | | | | + +---------+ + + | EXTERNAL LAB | | | | + +---------+ + + External Lab: Phosphorus (05/23/2015) + +-------+ + + + | Component | Value | Ref Range | Performed | Pathologist | | | | | At | Signature | + +-------+ + + + | Phosphorus, | 2.9 | 2.5 - 5.1 | EXTERNAL | | | External | | | LAB | | + +-------+ + + + + +---------+ + + | Performing | Address | City/State/Zipcode | Phone Number | | Organization | | | | + +---------+ + + | EXTERNAL LAB | | | | + +---------+ + + External Lab: Calcium (05/23/2015) + +-------+ + + + | Component | Value | Ref Range | Performed | Pathologist | | | | | At | Signature | + +-------+ + + + | Calcium, | 9.4 | 8.4 - 10.2 | EXTERNAL | | | External | | | LAB | | + +-------+ + + + + +---------+ + + | Performing | Address | City/State/Zipcode | Phone Number | | Organization | | | | + +---------+ + + | EXTERNAL LAB | | | | + +---------+ + + External Lab: Carbon Dioxide (05/23/2015) + +-------+ + + + | Component | Value | Ref Range | Performed | Pathologist | | | | | At | Signature | + +-------+ + + + | Carbon | 21 | 21 - 31 | EXTERNAL | | | [...] + +---------+ + + External Lab: Chloride (05/23/2015) + +-------+ + + + | Component | Value | Ref Range | Performed | Pathologist | | | | | At | Signature | + +-------+ + + + | Chloride, | 101 | 100 - 110 | EXTERNAL | | | External | | | LAB | | + +-------+ + + + + +---------+ + + | Performing | Address | City/State/Zipcode | Phone Number | | Organization | | | | + +---------+ + + | EXTERNAL LAB | | | | + +---------+ + + External Lab: Potassium (05/23/2015) + +-------+ + + + | Component | Value | Ref Range | Performed | Pathologist | | | | | At | Signature | + +-------+ + + + | Potassium, | 3.9 | 3.5 - 5.1 | EXTERNAL | | | External | | | LAB | | + +-------+ + + + + +---------+ + + | Performing | Address | City/State/Zipcode | Phone Number | | Organization | | | | + +---------+ + + | EXTERNAL LAB | | | | + +---------+ + + External Lab: Sodium (05/23/2015) + +-------+ + + + | Component [...] + + External Lab: Vitamin D, 25-Hydroxy (05/23/2015) + +--------+ + + + | Component | Value | Ref Range | Performed | Pathologist | | | | | At | Signature | + +--------+ + + + | Vitamin D, | 27 (A) | 30 - 150 | EXTERNAL | | | 25-Hydroxy, | [...] + +---------+ + + External Lab: eGFR (05/23/2015) + +--------+ + + + | Component | Value | Ref Range | Performed | Pathologist | | | | | At | Signature | + +--------+ + + + | eGFR, | 20 (A) | 60 | EXTERNAL | | [...] + +---------+ + + External Lab: Creatinine (05/23/2015) + +---------+ + + + | Component | Value | Ref Range | Performed | Pathologist | | | | | At | Signature | + +---------+ + + + | Creatinine, | 3.4 (A) | 0.6 - 1.3 | EXTERNAL | | | External | | | LAB | | + +---------+ + + + + + | Specimen [...]
--- OUTSIDE RECORDS SUMMARY | ~2019-12-22 | XMS | Encounter Summary ---
Demographics + + + | Address | [address] [address] [address] | | | [place] [address] | + + + | Home Phone | | + + + | Preferred Language | Unknown | + + + | Marital Status | | + + + | Sikh Affiliation | 1041 | + + + | Race | Unknown | + + + | Ethnic Group | Unknown | + + + Author + + + | Author | [facility] | | | and [place] | + + + | Organization | [facility] | | | and [place] | + + + | Address | Unknown | + + + | Phone | Unavailable | + + + Support + + + + + | Name | Relationship | Address | Phone | + + + + + | Ryan Oneill | ECON | [place], [place] | | | | | [address] | | + + + + + | Misty Boateng | ECON | [address] | | | | | [place] | | | | | [address] | | + + + + + Care Team Providers + +------+ + | Care Internal Investigator Name | Role | Phone | + +------+ + | Jt Perkins MD | PCP | | + +------+ + Reason for Visit + + + | Reason | Comments | + + + | Blood Pressure | | + + + Encounter Details +--------+ + + + + | Date | Type | Department | Care Team | Description | +--------+ + + + + | 01/05/ | Telephone | [facility] | Christine Maritnez W, | Blood Pressure | | 2019 | | NEPHROLOGY [address] | MD [address] | | | | | [address] | [address] [facility] | | | | | [place], [place] | [place] [address] | | | | | [address] | [phone] | | | | | [phone] | | | +--------+ + + + [...] | | | | | [place] [address] | | | | | | [phone] | | | | | | | | +--------+---------+ + + + documented as of this encounter Visit Diagnoses Not on filedocumented in this encounter"
--- OUTSIDE RECORDS SUMMARY | ~2019-12-22 | XMS | Encounter Summary ---
Demographics + + + | Address | [address] [place] [address] | | | [place] [address] | + + + | Home Phone | | + + + | Preferred Language | Unknown | + + + | Marital Status | | + + + | Samaritan Affiliation | CHR | + + + | Race | White | + + + | Ethnic Group | Not or | + + + Author + + + | Author | [facility] | + + + | Organization | [facility] | + + + | Address | Unknown | + + + | Phone | Unavailable | + + + Support + + +---------+ + | Name | Relationship | Address | Phone | + + +---------+ + | Misty Oneill | ECON | Unknown | | + + +---------+ + Care Team Providers + +------+ + | Care Community Service Organization Director Name | Role | Phone | + +------+ + | Jt Perkins MD | PCP | | + +------+ + Encounter Details +--------+ + + + + | Date | Type | Department | Care Team | Description | +--------+ + + + + | 11/21/ | Documentati | Otolaryngology | Tim Skinner MD | | | 2020 | on | Head and Neck | [address] | | | | | Surgery Services at | [place], | | | | | [facility] | [place] [address] | | | | | [place] Mailcode: | [phone] | | | | | [facility] | | | | | | and Healing, | | | | | | [address] | | | | | | [place], [place] | | | | | | [address] | | | | | | [phone] | | | +--------+ + + + [...]
--- OUTSIDE RECORDS SUMMARY | ~2019-12-22 | XMS | Encounter Summary ---
Demographics + + + | Address | [address] [place] [address] | | | [place] [address] | + + + | Home Phone | | + + + | Preferred Language | Unknown | + + + | Marital Status | | + + + | Hinduism Affiliation | CHR | + + + | Race | White | + + + | Ethnic Group | Not or | + + + Author + + + | Author | [facility] | + + + | Organization | [facility] | + + + | Address | Unknown | + + + | Phone | Unavailable | + + + Support + + +---------+ + | Name | Relationship | Address | Phone | + + +---------+ + | Misty Oneill | ECON | Unknown | | + + +---------+ + Care Team Providers + +------+ + | Care Research Chief Engineer Name | Role | Phone | + +------+ + | Jt Perkins MD | PCP | | + +------+ + Encounter Details +--------+ + + + + | Date | Type | Department | Care Team | Description | +--------+ + + + + | 10/20/ | Telephone | Transplant Social | Margaret Holman, | | | 2019 | | Work [address] | [facility] [address] | | | | | [address] | [address] | | | | | [address], [place] | [place], [place] | | | | | [address] [place], [place] | [address] | | | | | [address] | [phone] | | | | | [phone] | | | +--------+ + + + [...]
--- OUTSIDE RECORDS SUMMARY | ~2019-12-22 | XMS | Encounter Summary ---
Demographics + + + | Address | [address] [address] [address] | | | [place] [address] | + + + | Home Phone | | + + + | Preferred Language | Unknown | + + + | Marital Status | | + + + | Jainism Affiliation | 1041 | + + + | Race | Unknown | + + + | Ethnic Group | Unknown | + + + Author + + + | Author | [facility] | | | and [place] | + + + | Organization | [facility] | | | and [place] | + + + | Address | Unknown | + + + | Phone | Unavailable | + + + Support + + + + + | Name | Relationship | Address | Phone | + + + + + | Ryan Oneill | ECON | [place], [place] | | | | | [address] | | + + + + + | Misty Boateng | ECON | [address] | | | | | [place], [place] | | | | | [address] | | + + + + + Care Team Providers + +------+ + | Care Dam Tender Assistant Name | Role | Phone | + +------+ + PCP | Unavailable | + +------+ + Encounter Details +--------+ + + + + | Date | Type | Department | Care Team | Description | +--------+ + + + + | 10/28/ | Documentati | [facility] | Peace Drake | | | 2016 | on | NEPHROLOGY [address] | M, DO [address] | | | | | [address] | [address] | | | | | [place], [place] | [place], [place] | | | | | [address] | [address] | | | | | [phone] | | | +--------+ + + + [...] + + + | Blood Pressure | 114/81 | 10/29/2015 4:17 PM | | | | | PDT | | + + + + + | Pulse | - | - | | + + + + + | Temperature | 36 C (96.8 F) | 10/29/2015 4:17 PM | | | | | PDT [...] + + + + | Weight | 91.9 kg (202 lb 9.6 | 10/29/2015 4:17 PM | | | | oz) | PDT | | + + + + + | Height | - | - | | + + + + + | Body Mass Index | 27.48 | 10/18/2015 9:30 AM | | | | | PDT | | + + + + + documented in this encounter Progress Notes Mandy Negrete - 11/02/2015 7:58 AM PDTMonthly peritoneal dialysis progress note e-faxed to [facility], Hai Holman MD on 11/02/15.Electronically s igned by Mandy Negrete at 11/02/2015 7:59 AM PDTPeace Drake DO - 10/29/2015 4:1 9 PM PDT Subjective: CAPD CLINIC Patient ID: Seema Oneill is a 44 y.o. male. 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 He also has HTN, hypothyroidism, anemia 2' to CKD, Crohn's which is in remission on azathioprine/Humira. 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 He states that his Crohn's symptoms appear to be in remission. He appears to be grasping the techniques and principles of home CAPD. MEDS: Outpatient Prescriptions Marked as Taking for the 10/29/15 encounter (Documentation) with Hubert Drake, DO Medication Sig Dispense Refill Adalimumab (HUMIRA SC) Inject 40 mg under the skin every 14 days. azaTHIOprine (IMURAN) 50 mg tablet Take 2 tablets PO in AM and 1/2 tablet in PM carvedilol (COREG) 12.5 mg tablet Take 1 tablet by mouth 2 times daily (with breakfast & dinner). 60 tablet 5 cholecalciferoL (VITAMIN D-3) 1,000 units CAPS capsule Take 1,000 Units by mouth Daily. cholestyramine light (QUESTRAN) 4 g packet Take 4 g by mouth nightly. escitalopram (LEXAPRO) 20 mg tablet Take 20 mg by mouth Daily. pantoprazole (PROTONIX) 40 mg tablet Take 40 mg by mouth every morning (before breakfas t). CAPD: 2000cc exchanges, 1.5% Dianeal, 3 exchange /day. Review of Systems Objective: BP 114/81 mmHg | Temp(Src) 36 C (96.8 F) | Wt 91.9 kg (202 lb 9.6 oz) Physical Exam Heart: Regular rate and rhythm with no S3, S4, murmur or rub. Lungs: CTA bilaterally. No rales or wheezes. Abdomen: Soft, nontender, normoactive bowel sounds, no guarding, exit site at LLQ is clear and dry. Extremities: no clubbing, cyanosis, edema. (+) old ORIF, multiple with well healed incision s at right hand and wrist. LAB: BUN 35, Cr 3.40, K+ 5.2, HCO3 26, Ca++ 9.6, PO4 3.6, GLU 89, PTH 163, Alb 4.5, Hb 12.4, TSat. = 31 %, Ferritin 297. Assessment: 1. ESRD--to begin outpt CAPD. 2. Hypertension--good control. 3. Anemia 2' to CKD--not requiring BENY Rx yet. 4. CKD Mineral Bone Disease--his PTH is within goal without Calcitriol at this point. His phosphorus control has been excellent recently. 5. Nutrition--his appetite is improving. 6. Transplanation-- I reviewed with Seema the risk, alternatives, benefits, of this. He a ppears to be a very viable candidate. 7. Crohn's --appears to be in remission on Humira, by History. Plan: 1. He appears to have some residual function, therefore, he is being started on 6 liters p er day. 2. No need for EPO until the Hb is < 10.5 g/dl. 3. 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 4. He will have a PET test, and adequacy in 1 mo. after being trained. Also, will have him begin Nephrovite 1 , daily to replace his H2O soluble vitamins. : Cornland Polo Holman MD documented in thi s encounter Plan of Treatment +--------+---------+ + + + | Date | Type | Specialty | Care Team | Description | +--------+---------+ + + + | 03/20/ | Office | Nephrology | Christine Martinez, | | | 2019 | Visit | | MD [address] | | | | | | [address] [place] | | | | | | [place] [address] | | | | | | [phone] | | | | | | | | +--------+---------+ + + + documented as of this encounter Visit Diagnoses + + | Diagnosis | + + | Anemia in CKD (chronic kidney disease) - Primary Anemia in chronic kidney disease | + + | End stage renal disease (HCC) End stage renal disease | + + | Essential hypertension, benign | + + documented in this encounter"
--- OUTSIDE RECORDS SUMMARY | ~2019-12-22 | XMS | Encounter Summary ---
Demographics + + + | Address | [address] [place] [address] | | | [place] [address] | + + + | Home Phone | | + + + | Preferred Language | Unknown | + + + | Marital Status | | + + + | Restorationist Affiliation | CHR | + + + | Race | White | + + + | Ethnic Group | Not or | + + + Author + + + | Author | [facility] | + + + | Organization | [facility] | + + + | Address | Unknown | + + + | Phone | Unavailable | + + + Support + + +---------+ + | Name | Relationship | Address | Phone | + + +---------+ + | Misty Oneill | ECON | Unknown | | + + +---------+ + Care Team Providers + +------+ + | Care Pond Supervisor Name | Role | Phone | + +------+ + | Jt Perkins MD | PCP | | + +------+ + Reason for Visit AUTH/CERT +--------+--------+ + + + + | Status | Reason | Specialty | Diagnoses / | Referred By | Referred To | | | | | Procedures | Contact | Contact | +--------+--------+ + + + + | | | | | | | +--------+--------+ + + + + Encounter Details +--------+ + + + + | Date | Type | Department | Care Team | Description | +--------+ + + + + | 12/04/ | Anesthesia | [facility] | Teri Motta MD | | | 2020 | Event | [facility] | [address] | | | | | and Healing Surgery | [place]ait Barrios [place], | | | | | [facility] | [place] [address] | | | | | Desk Located on the | [phone] | | | | | 4th floor [address] | | | | | | Remy [address] [place], | Nyla Scruggs CRNA | | | | | [place] [address] | [address] | | | | | | [address] | | | | | | [place], [place] | | | | | | [address] | | | | | | [phone] | | | | | | | | +--------+ + + + + Anesthesia Record + + + + + | Procedure Name | Responsible | Anesthesia Start | Anesthesia Stop Time | | | Anesthesiologist | Time | | + + + + + | LEFT PAROTIDECTOMY | Teri Motta MD | 12/05/19 0829 | 12/05/19 1125 | | (Left Neck) | | | | + + + + + +----+---+ + + | Da | T | Event | Comment | | te | i | | | | | m | | | | | e | | | +----+---+ + + | 05 | 0 | Eq Check | Anesthesia machine checked Equipment verified | | /1 | 6 | | | | 8/ | 5 | | | | 20 | 8 | | | | 20 | | | | +----+---+ + + | | 0 | Pt. Check | Prior to anesthesia start, pt. Identified, examined, chart | | | 7 | | reviewed, PARQ held, anesthetic plan made or approved by | | | 5 | | attending anesthesiologist. NPO status confirmed as appropriate | | | 9 | | for procedure Preoperative evaluation: unchanged | +----+---+ + + | | 0 | Quick Note | Delay to OR due to surgeon speaking with the patient. | | | 8 | | | | | 2 | | | | | 5 | | | +----+---+ + + | | 0 | An Start | | | | 8 | | | | | 2 | | | | | 9 | | | +----+---+ + + | | 0 | An Start | | | | 8 | Data | | | | 3 | | | | | 3 | | | +----+---+ + + | | 0 | Vitals | Monitors applied Vital signs checked Patient ready for anesthesia | | | 8 | Checked | | | | 3 | | | | | 7 | | | +----+---+ + + | | 0 | ETT | | | | 8 | | | | | 3 | | | | | 8 | | | +----+---+ + + | | 0 | Ready | | | | 8 | | | | | 4 | | | | | 2 | | | +----+---+ + + | | 0 | Abx | | | | 8 | Administere | | | | 5 | d | | | | 3 | | | +----+---+ + + | | 0 | Timeout | | | | 9 | | | | | 0 | | | | | 4 | | | +----+---+ + + | | 0 | Incision | | | | 9 | | | | | 0 | | | | | 8 | | | +----+---+ + + | | 1 | Surgery end | | | | 1 | | | | | 0 | | | | | 6 | | | +----+---+ + + | | 1 | An Extubate | Neuromuscular function Intact. Pharynx suctioned. Patient obeys | | | 1 | | commands. Adequate pulmonary mechanics. | | | 1 | | | | | 5 | | | +----+---+ + + | | 1 | O2 by FM | | | | 1 | | | | | 1 | | | | | 5 | | | +----+---+ + + | | 1 | an stop | | | | 1 | data | | | | 1 | | | | | 5 | | | +----+---+ + + | | 1 | PACU Rpt | | | | 1 | Given | | | | 2 | | | | | 5 | | | +----+---+ + + | | 1 | Anesthesia | | | | 1 | End | | | | 2 | | | | | 5 | | | +----+---+ + + | | 1 | Post-Op | | | | 3 | Page | | | | 0 | | | | | 5 | | | +----+---+ + + +------+ | Meds | +------+ + + + | Name | Total | + + + | midazolam | 2 mg | + + + | propofoL (DIPRIVAN) 200 mg | 230 mg | + + + | lidocaine 2% | 100 mg | + + + | fentaNYL | 200 mcg | + + + | PHENYLephrine | 300 mcg | + + + | dexamethasone | 8 mg | + + + | ondansetron | 4 mg | + + + | succinylcholine | 100 mg | + + + | ceFAZolin | 2,000 mg | + + + | PHENYLEPHrine INF (25mg/250mL) | 646.05 mcg | + + + | lactated ringers (LR) infusion | 0 mL | + + + + + | Name | + + | O2 FR Avance (Total Liters) | + + | Air FR Avance (l/min) | + + | Insp Sevo | + + | Et Sevo | + + | Insp N2O % | + + + + | No blood administrations on file. | + + +--------+ + + + | Type | Details | Placement | Removal | +--------+ + + + | Incisi | 12/05/19; 910; Quynh Donald MD; Left; | 12/05/19 09 by | | | on | Upper; neck | Summer Staton RN | | +--------+ + + + | Drain | 12/05/19; 1044; Rakesh; Left; | 12/05/19 1044 by | | | | neck; 1 | Stacie Frances RN | | +--------+ + + + | Periph | 12/05/19; 0745; cindy duke; | 12/05/19 0745 by | 12/06/19 1018 by | | eral | Right; Hand; 20 g; Positive; | Dick Hairston RN | Silva Neri RN | | IV | 12/06/19; 1018; Discharge | | | +--------+ + + + | ETT | 12/05/19; 0838 (created via | 12/05/19 0838 by | 12/05/19 1115 by | | | procedure documentation); Nyla Espinoza | Nyla Scruggs CRNA | Nyla Scruggs CRNA | | | JEAN PAUL Scruggs; Endotracheal Tube; | | | | | 7.5; Oral; Cuffed; 12/05/19; 1115 | | | +--------+ + + + documented in this encounter Social History + + + +--------+------+ | [...] | + +--------+ + + + | ANE ETT | Routin | 12/05/2019 | | Results for this | | | e | 9:12 AM | | procedure are in the | | | | PDT | | results section. | + +--------+ + + + documented in this encounter Results ETT (12/05/2019 9:12 AM PDT) + + + | Narrative | Performed At | + + + | Nyla Scruggs CRNA 12/05/2019 9:14 AM AIRWAY MANAGEMENT - | | | ETT Time of Placement: 12/05/2019 8:38 AM Intubation Reason: For | | | surgical procedure Positioning: Supine Location Performed:OR | | | OXYGENATION Patient was preoxygenated No apneic oxygenation Grade: | | | Grade 1 - Ventilated by mask Manual in-Line Stabilization: No | | | Induction:Routine, with Cricoid Pressure INTUBATION ATTEMPT 1 | | | Blade Type: Skye Blade #: 4 Intubation Adjuncts: w/ Stylet | | | Laryngoscopic View: Grade I ETT DETAILS ETT Type:Standard, Hi-Lo | | | Cuffed Intubation Type: Oral Cuff Status: Cuffed Size: 7.5 ETT | | | secured with adhesive tape Depth at Lip: 22 cm Airway Leak: No | | | CONFIRMATION airway not difficult Number of Attempts: 1 Atraumatic | | | placement Positive for EtCO2:Waveform capnography Breath Sounds: | | | Bilateral and equal NARRATIVE Attending was physically present | | | for the critical portions of the procedure as described in the | | | procedure note Attending/Authorizing Provider: Teri Motta MD | | | Performing Provider: Nyla Scruggs CRNA Procedure Comments: | | | Atraumatic intubation, lips, teeth, nose in pre-op condition. | | + + + documented in this encounter Visit Diagnoses Not on filedocumented in this encounter Administered Medications + +--------+ + +------+------+ | Medication Order | MAR | Action | Dose | Rate | Site | | | Action | Date | | | | + +--------+ + +------+------+ | ceFAZolin (ANCEF) injection | Given | 12/05/19 | 2,000 mg | | | | intravenous, INTRAPROCEDURE PRN, | | 20 8:53 | | | | | Starting 12/05/19 at 0853, | | AM PDT | | | | | Until 12/05/19 at 1125 | | | | | | + +--------+ + +------+------+ +---+---+ | | | +---+---+ + +-------+ +------+---+---+ | dexamethasone (DECADRON) | Given | 12/05/19 | 8 mg | | | | injection intravenous, | | 20 8:42 | | | | | INTRAPROCEDURE PRN, Starting Mon | | AM PDT | | | | | 12/05/19 at 0842, Until Mon | | | | | | | 12/05/19 at 1125 | | | | | | + +-------+ +------+---+---+ +---+---+ | | | +---+---+ + +-------+ +--------+---+---+ | fentaNYL (SUBLIMAZE) injection | Given | 12/05/19 | 50 mcg | | | | intravenous, INTRAPROCEDURE PRN, | | 20 10:54 | | | | | Starting 12/05/19 at 0909, | | AM PDT | | | | | Until 12/05/19 at 1125 | | | | | | + +-------+ +--------+---+---+ +-------+ +--------+---+---+ | Given | 12/05/19 | 50 mcg | | | | | 20 9:09 | | | | | | AM PDT | | | | +-------+ +--------+---+---+ | Given | 12/05/19 | 50 mcg | | | | | 20 8:44 | | | | | | AM PDT | | | | +-------+ +--------+---+---+ +---+---+ | | | +---+---+ + + + +---+-------+---+ | lactated ringers (LR) infusion | Rate/Dos | 12/05/19 | | 800 | | | 10 mL/hr, intravenous, PROCEDURE | e Change | 20 10:55 | | mL/hr | | | CONTINUOUS, Starting Thu12/05/19 | | AM PDT | | | | | at 0730, Until Thu12/05/19 at | | | | | | | 1118 | | | | | | + + + +---+-------+---+ +---------+ +---+-------+---+ | New Bag | 12/05/19 | | 100 | | | | 20 8:29 | | mL/hr | | | | AM PDT | | | | +---------+ +---+-------+---+ +---+---+ | | | +---+---+ + +-------+ +--------+---+---+ | lidocaine PF (XYLOCAINE MPF) 20 | Given | 12/05/19 | 100 mg | | | | mg/mL (2 %) injection | | 20 8:37 | | | | | INTRAPROCEDURE PRN, Starting Mon | | AM PDT | | | | | 12/05/19 at 0837, Until Mon | | | | | | | 12/05/19 at 1125 | | | | | | + +-------+ +--------+---+---+ +---+---+ | | | +---+---+ + +-------+ +------+---+---+ | midazolam (PF) (VERSED) | Given | 12/05/19 | 2 mg | | | | injection intravenous, | | 20 8:29 | | | | | INTRAPROCEDURE PRN, Starting Mon | | AM PDT | | | | | 12/05/19 at 0829, Until Mon | | | | | | | 12/05/19 at 1125 | | | | | | + +-------+ +------+---+---+ +---+---+ | | | +---+---+ + +-------+ +------+---+---+ | ondansetron (ZOFRAN) injection | Given | 12/05/19 | 4 mg | | | | intravenous, INTRAPROCEDURE PRN, | | 20 10:54 | | | | | Starting 12/05/19 at 1054, | | AM PDT | | | | | Until 12/05/19 at 1125 | | | | | | + +-------+ +------+---+---+ +---+---+ | | | +---+---+ + +-------+ +---------+---+---+ | PHENYLEPHrine 100 mcg/mL IV | Given | 12/05/19 | 100 mcg | | | | syringe intravenous, | | 20 10:15 | | | | | INTRAPROCEDURE PRN, Starting Mon | | AM PDT | | | | | 12/05/19 at 0912, Until Mon | | | | | | | 12/05/19 at 1125 | | | | | | + +-------+ +---------+---+---+ +-------+ +---------+---+---+ | Given | 12/05/19 | 100 mcg | | | | | 20 9:22 | | | | | | AM PDT | | | | +-------+ +---------+---+---+ | Given | 12/05/19 | 100 mcg | | | | | 20 9:12 | | | | | | AM PDT | | | | +-------+ +---------+---+---+ +---+---+ | | | +---+---+ + + + + +-------+---+ | PHENYLEPHrine 25 mg/250 mL (0.1 | Rate/Dos | 12/05/19 | 0.1 | 5.31 | | | mg/mL) IV infusion (ADC) | e Change | 20 9:42 | mcg/kg/m | mL/hr | | | intravenous, INTRAPROCEDURE | | AM PDT | in | | | | CONTINUOUS PRN, Starting Mon | | | | | | | 12/05/19 at 0926, Until Mon | | | | | | | 12/05/19 at 1125 | | | | | | + + + + +-------+---+ + + + +--------+---+ | Rate/Dose Change | 12/05/19 | 0.5 | 26.55 | | | | 20 9:37 | mcg/kg/m | mL/hr | | | | AM PDT | in | | | + + + +--------+---+ | New Bag | 12/05/19 | 0.4 | 21.24 | | | | 20 9:26 | mcg/kg/m | mL/hr | | | | AM PDT | in | | | + + + +--------+---+ +---+---+ | | | +---+---+ + +---------+ +-------+---+---+ | propofoL (DIPRIVAN) 200 mg | New Bag | 12/05/19 | 30 mg | | | | intravenous, INTRAPROCEDURE | | 20 9:09 | | | | | CONTINUOUS PRN, Starting Mon | | AM PDT | | | | | 12/05/19 at 0909, Until Mon | | | | | | | 12/05/19 at 1125 | | | | | | + +---------+ +-------+---+---+ +---------+ +--------+---+---+ | New Bag | 12/05/19 | 200 mg | | | | | 20 8:37 | | | | | | AM PDT | | | | +---------+ +--------+---+---+ +---+---+ | | | +---+---+ + +-------+ +--------+---+---+ | succinylcholine (ANECTINE) | Given | 12/05/19 | 100 mg | | | | injection INTRAPROCEDURE PRN, | | 20 8:37 | | | | | Starting Thu12/05/19 at 0837, | | AM PDT | | | | | Until Thu12/05/19 at 1125 | | | | | | + +-------+ +--------+---+---+ +---+---+ | | | +---+---+ documented in this encounter"
--- OUTSIDE RECORDS SUMMARY | ~2019-12-22 | XMS | Encounter Summary ---
Demographics + + + | Address | [address] [place] [address] | | | [place] [address] | + + + | Home Phone | | + + + | Preferred Language | Unknown | + + + | Marital Status | | + + + | Congregational Affiliation | CHR | + + + | Race | White | + + + | Ethnic Group | Not or | + + + Author + + + | Author | [facility] | + + + | Organization | [facility] | + + + | Address | Unknown | + + + | Phone | Unavailable | + + + Support + + +---------+ + | Name | Relationship | Address | Phone | + + +---------+ + | Misty Oneill | ECON | Unknown | | + + +---------+ + Care Team Providers + +------+ + | Care Resident Services Coordinator Name | Role | Phone | + +------+ + | Jt Perkins MD | PCP | | + +------+ + Reason for Visit + + + | Reason | Comments | + + + | Waitlist | support issue | + + + Encounter Details +--------+ + + + + | Date | Type | Department | Care Team | Description | +--------+ + + + + | 10/05/ | Telephone | Clinical | Thi Aden, | TAMIKO Waitlist (support | | 2019 | | Transplant Services | RN [address] | issue) | | | | [address] | [address] | | | | | Kait Barrios [place], | [place], [place] | | | | | [place] [address] | [address] | | | | | [phone] | | | +--------+ + + + [...]
--- OUTSIDE RECORDS SUMMARY | ~2019-12-22 | XMS | Encounter Summary ---
Demographics + + + | Address | [address] [place] [address] | | | [place] [address] | + + + | Home Phone | | + + + | Preferred Language | Unknown | + + + | Marital Status | | + + + | Church Affiliation | CHR | + + + | Race | White | + + + | Ethnic Group | Not or | + + + Author + + + | Author | [facility] | + + + | Organization | [facility] | + + + | Address | Unknown | + + + | Phone | Unavailable | + + + Support + + +---------+ + | Name | Relationship | Address | Phone | + + +---------+ + | Misty Oneill | ECON | Unknown | | + + +---------+ + Care Team Providers + +------+ + | Care Legislative Correspondent Name | Role | Phone | + +------+ + | Hai Holman MD | PCP | | + +------+ + Reason for Visit + + + | Reason | Comments | + + + | Unos Listing | ABO Verification | + + + Encounter Details +--------+ + + + + | Date | Type | Department | Care Team | Description | +--------+ + + + + | 06/16/ | Documentati | Clinical | Thi Aden, | Unos Listing (ABO | | 2016 | on | Transplant Services | RN [address] | Verification) | | | | [address] | [address] | | | | | Kait Barrios [place], | [place], [place] | | | | | [place] [address] | [address] | | | | | [phone] | | | +--------+ + + + [...]
--- OUTSIDE RECORDS SUMMARY | ~2019-12-22 | XMS | Encounter Summary ---
Demographics + + + | Address | [address] [place] [address] | | | [place] [address] | + + + | Home Phone | | + + + | Preferred Language | Unknown | + + + | Marital Status | | + + + | Episcopalian Affiliation | CHR | + + + | Race | White | + + + | Ethnic Group | Not or | + + + Author + + + | Author | [facility] | + + + | Organization | [facility] | + + + | Address | Unknown | + + + | Phone | Unavailable | + + + Support + + +---------+ + | Name | Relationship | Address | Phone | + + +---------+ + | Misty Oneill | ECON | Unknown | | + + +---------+ + Care Team Providers + +------+ + | Care Legal Executive Name | Role | Phone | + +------+ + | Hai Holman MD | PCP | | + +------+ + Reason for Visit + + + | Reason | Comments | + + + | Lab Results | MDRD6: 01/22/18 | + + + Encounter Details +--------+ + + + + | Date | Type | Department | Care Team | Description | +--------+ + + + + | 02/05/ | Abstract | Clinical | Santos Lorenzo, | Lab Results (MDRD6: | | 2017 | | Transplant Services | [address] | 01/22/18) | | | | [address] | [address] | | | | | [place], | [place], [place] | | | | | [place] [address] | [address] | | | | | [phone] | [phone] | | | | | | | [...] + | MDRD 6 | Routin | 01/22/2018 | | Results for this | | | e | | | procedure are in the | | | | | | results section. | + +--------+ + + + documented in this encounter Results MDRD 6 (01/22/2018) + + + + + + | Component | Value | Ref Range | Performed | Pathologist | | | | | At | Signature | + + + + + + | MDRD6 | 24.75 | | NON [facility] | | | | | | LAB | | + + + + + + | BUN, PLASMA | 34 (H) | mg/dL | NON [facility] | | | (LAB) | | | LAB | | + + + + + + | CREATININE | 3.06 (H) | mg/dL | NON [facility] | | | PLASMA | | | LAB | | | (LAB) | | | | | + + + + + + | ALBUMIN, | 4.3 | g/dL | NON [facility] | | | PLASMA | | | LAB | | | (LAB) | | | | | + + + + + + + + | Specimen | + + | Blood - Blood | | (substance) | + + + + + | Narrative | Performed At | + + + | [place] | NON [facility] | | [facility] [place] [address] | | + + + + +---------+ + + | Performing | Address | City/State/Zipcode | Phone Number | | Organization | | | | + +---------+ + + | NON [facility] | | | | + +---------+ + + documented in this encounter Visit Diagnoses Not on filedocumented in this encounter"
--- OUTSIDE RECORDS SUMMARY | ~2019-12-22 | XMS | Encounter Summary ---
Demographics + + + | Address | [address] [place] [address] | | | [place] [address] | + + + | Home Phone | | + + + | Preferred Language | Unknown | + + + | Marital Status | | + + + | Worship Affiliation | CHR | + + + | Race | White | + + + | Ethnic Group | Not or | + + + Author + + + | Author | [facility] | + + + | Organization | [facility] | + + + | Address | Unknown | + + + | Phone | Unavailable | + + + Support + + +---------+ + | Name | Relationship | Address | Phone | + + +---------+ + | Misty Oneill | ECON | Unknown | | + + +---------+ + Care Team Providers + +------+ + | Care Crisis Mental Health Therapist Name | Role | Phone | + +------+ + | Hai Holman MD | PCP | | + +------+ + Reason for Visit + + + | Reason | Comments | + + + | Lab Results | Labs: 03/26/16 | + + + Encounter Details +--------+ + + + + | Date | Type | Department | Care Team | Description | +--------+ + + + + | 05/01/ | Abstract | Clinical | Santos Lorenzo, | Lab Results (Labs: | | 2015 | | Transplant Services | [address] | 03/26/16) | | | | [address] | [address] | | | | | Kait Barrios [place], | [place], [place] | | | | | [place] [address] | [address] | | | | | [phone] | | | | | | | [...] | + +--------+ + + + | RENAL TX PRE PANEL | Routin | 03/26/2016 | | Results for this | | (EXTERNAL RESULTS | e | | | procedure are in the | | ONLY) | | | | results section. | + +--------+ + + + documented in this encounter Results RENAL TX PRE PANEL (EXTERNAL RESULTS ONLY) (03/26/2016) + + + + + + | Component | Value | Ref Range | Performed | Pathologist | | | | | At | Signature | + + + + + + | BUN, PLASMA | 35 (H) | mg/dL | NON [facility] | | | (LAB) | | | LAB | | + + + + + + | CREATININE | 3.31 (H) | mg/dL | NON [facility] | | | PLASMA | | | LAB | | | (LAB) | | | | | + + + + + + | ALBUMIN, | 4.5 | g/dL | NON [facility] | | | PLASMA | | | LAB | | | (LAB) | | | | | + + + + + + | HEMOGLOBIN | 12.8 (L) | 13.5 - 17.5 | NON [facility] | | | | | g/dL | LAB | | + + + + + + + + | Specimen | + + | Blood - Blood | + + + + + | Narrative | Performed At | + + + | [facility] | [facility] | | [facility] [place] [address] | | |[place] [address] | | + + + + +---------+ + + | Performing | Address | City/State/Zipcode | Phone Number | | Organization | | | | + +---------+ + + | NON [facility] | | | | + +---------+ + + documented in this encounter Visit Diagnoses Not on filedocumented in this encounter"
--- OUTSIDE RECORDS SUMMARY | ~2019-12-22 | XMS | Encounter Summary ---
Demographics + + + | Address | [address] | | | [place] [address] | + + + | Home Phone | | + + + | Preferred Language | Unknown | + + + | Marital Status | | + + + | Denominational Affiliation | 1041 | + + + | Race | Unknown | + + + | Ethnic Group | Unknown | + + + Author + + + | Author | [facility] | | | and [place] | + + + | Organization | [facility] | | | and [place] | + + + | Address | Unknown | + + + | Phone | Unavailable | + + + Support + + + + + | Name | Relationship | Address | Phone | + + + + + | Ryan Oneill | ECON | [place], [place] | | | | | [address] | | + + + + + | Misty Boateng | ECON | [address] | | | | | [place] | | | | | [address] | | + + + + + Care Team Providers + +------+ + | Care Epic Radiant Analyst Name | Role | Phone | + [...] Surgery | Diagnoses | Martinez, | Travis Randall, | | | Services | | Presence of | Christine Tirado, | [address] | | | Required | | peritoneal | [address] | | | | | dialysis | [address] | [address] | | | | | catheter | [address] [facility] | [place], [place] | | | | | (HCC) CKD | [place], [place] | [address] | | | | | (chronic | [address] | Phone: | | | | | kidney | Phone: | [phone] | | | | | disease) | [phone] | Fax: | | | | | stage 4, GFR | Fax: | [phone] | | | | | 15-29 | [phone] | | | | | | ml/min ([facility]) | | | +--------+ + + + + + Encounter Details +--------+ + + + + | Date | Type | Department | Care Team | Description | +--------+ + + + + | 10/20/ | Orders Only | [facility] [place] | Christine Martinez W, | Presence of | | 2017 | | NEPHROLOGY [address] | peritoneal dialysis | | | | [address] [place] | catheter (HCC) | | | | [place], [place] | [place] [address] | (Primary Dx); CKD | | | | [address] | [phone] | (chronic kidney | | | | [phone] | | disease) stage 4, | | | | | | GFR 15-29 ml/min | | | | | | (HCC) | +--------+ + + + + [...] + documented as of this encounter Progress Kenyatta Atkins RN - 10/20/2016 4:[address] Randall for peritoneal dialysis c atheter removal sent. Tdocumented in this encounter Plan of Treatment +--------+---------+ + + + | Date | Type | Specialty | Care Team | Description | +--------+---------+ + + + | 09/01/ | Office | Nephrology | Christine Martinez, | | | 2019 | Visit | | [address] | | | | | | [address] [place] | | | | | | [place] [address] | | | | | | [phone] | | | | | | | | +--------+---------+ + + + + + +--------+ + + | Name | Type | Priori | Associated Diagnoses | Order Schedule | | | | ty | | | + + +--------+ + + | General Surgery, | Outpatient | Routin | Presence of | Ordered: 10/20/2016 | | External - AMB | Referral | e | peritoneal dialysis | | | Referral | | | catheter ([facility]) CKD | | | | | | (chronic kidney | | | | | | disease) stage 4, | | | | | | GFR 15-29 ml/min | | | | | | ([facility]) | | + + +--------+ + + documented as of this encounter Visit Diagnoses + + | Diagnosis | + + | Presence of peritoneal dialysis catheter (HCC) - Primary | + + | CKD (chronic kidney disease) stage 4, GFR 15-29 ml/min (HCC) Chronic kidney disease, | | Stage IV (severe) | + + documented in this encounter"
--- OUTSIDE RECORDS SUMMARY | ~2019-12-22 | XMS | Encounter Summary ---
Demographics + + + | Address | [address] [place] [address] | | | [place] [address] | + + + | Home Phone | | + + + | Preferred Language | Unknown | + + + | Marital Status | | + + + | Jewish Affiliation | CHR | + + + | Race | White | + + + | Ethnic Group | Not or | + + + Author + + + | Author | [facility] | + + + | Organization | [facility] | + + + | Address | Unknown | + + + | Phone | Unavailable | + + + Support + + +---------+ + | Name | Relationship | Address | Phone | + + +---------+ + | Misty Oneill | ECON | Unknown | | + + +---------+ + Care Team Providers + +------+ + | Care Sound Engineering Technician Name | Role | Phone | + +------+ + | Hai Holman MD | PCP | | + +------+ + Reason for Visit + + + | Reason | Comments | + + + | [facility] Waitlist | PD status | + + + Encounter Details +--------+ + + + + | Date | Type | Department | Care Team | Description | +--------+ + + + + | 09/04/ | Telephone | Clinical | Thi Aden, | [facility] Waitlist (PD | | 2017 | | Transplant Services | RN [address] | status) | | | | [address] | Davion Carballo | | | | | [facility], | [place], [place] | | | | | [place] [address] | [phone] | | | | | [phone] | | | +--------+ + + + [...]
--- OUTSIDE RECORDS SUMMARY | ~2019-12-22 | XMS | Encounter Summary ---
Demographics + + + | Address | [address] [place] [address] | | | [place] [address] | + + + | Home Phone | | + + + | Preferred Language | Unknown | + + + | Marital Status | | + + + | Adventism Affiliation | CHR | + + + | Race | White | + + + | Ethnic Group | Not or | + + + Author + + + | Author | [facility] | + + + | Organization | [facility] | + + + | Address | Unknown | + + + | Phone | Unavailable | + + + Support + + +---------+ + | Name | Relationship | Address | Phone | + + +---------+ + | Misty Oneill | ECON | Unknown | | + + +---------+ + Care Team Providers + +------+ + | Care Director Of Labor Relations Name | Role | Phone | + +------+ + | Jt Perkins MD | PCP | | + +------+ + Encounter Details +--------+ + + + + | Date | Type | Department | Care Team | Description | +--------+ + + + + | 11/13/ | Documentati | Otolaryngology | Tim Skinner MD | | | 2020 | on | Head and Neck | [address] | | | | | Surgery Services at | [place], | | | | | [facility] [address] | [place] [address] | | | | | Lenka Mailcode: | [phone] | | | | | [facility] | | | | | | and Healing, | | | | | | [address] | | | | | | [place], [place] | | | | | | [address] | | | | | | [phone] | | | +--------+ + + + [...]
--- OUTSIDE RECORDS SUMMARY | ~2019-12-22 | XMS | Encounter Summary ---
Demographics + + + | Address | [address] | | | [place] [address] | + + + | Home Phone | | + + + | Preferred Language | Unknown | + + + | Marital Status | | + + + | Uatsdin Affiliation | 1041 | + + + | Race | Unknown | + + + | Ethnic Group | Unknown | + + + Author + + + | Author | [facility] | | | and [place] | + + + | Organization | [facility] | | | and [place] | + + + | Address | Unknown | + + + | Phone | Unavailable | + + + Support + + + + + | Name | Relationship | Address | Phone | + + + + + | Ryan Oneill | ECON | [place], [place] | | | | | [address] | | + + + + + | Misty Boateng | ECON | [address] | | | | | [place] | | | | | [address] | | + + + + + Care Team Providers + +------+ + | Care Wiring Mechanic Name | Role | Phone | + +------+ + PCP | Unavailable | + +------+ + Reason for Visit Evaluate & Treat (Routine) +--------+--------+ + + + + | Status | Reason | Specialty | Diagnoses / | Referred By | Referred To | | | | | Procedures | Contact | Contact | +--------+--------+ + + + + | Closed | | Nephrology | Diagnoses | Manda, | Michelle, | | | | | | Hai | Christine W, | | | | | Interstitial | MD Bj | [address] | | | | | nephritis | [address] | [place] [address] | | | | | Procedures | [place] | [address] [place] | | | | | PA OFFICE | [address] | [facility] [place] | | | | | OUTPATIENT | [place], | [address] Phone: | | | | | VISIT 25 | [place] | [phone] | | | | | MINUTES | [address] | Fax: | | | | | | Phone: | [phone] | | | | | | [phone] | | | | | | | Fax: | | | | | | | [phone] | | +--------+--------+ + + + + Encounter Details +--------+ + + + + | Date | Type | Department | Care Team | Description | +--------+ + + + + | 02/24/ | Off-Site | [facility] [place] | Peace Drake | End stage renal | | 2016 | Visit | NEPHROLOGY [address] | M, DO [address] | disease (HCC) | | | | [address] | [place] | (Primary Dx) | | | | [place], [place] | [place], [place] | | | | | [address] | [address] | | | | | [phone] | | | +--------+ + + + [...] + + + | Blood Pressure | 109/82 | 02/25/2016 11:15 AM | | | | | PDT | | + + + + + | Pulse | - | - | | + + + + + | Temperature | 35.7 C (96.2 F) | 02/25/2016 11:15 AM | | | | | PDT [...] + + + + | Weight | 89.6 kg (197 lb 8.5 | 02/25/2016 11:15 AM | | | | oz) | PDT | | + + + + + | Height | - | - | | + + + + + | Body Mass Index | 26.79 | 11/08/2015 10:00 AM | | | | | PDT | | + + + + + documented in this encounter Progress Notes Peace Drake DO - 02/29/2016 11:15 AM PDT Subjective: [facility] Patient ID: Seema Oneill is a 45 y.o. male. 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 He is very pleasant here in Clinic. He denies anorexia, cramps, cloudy fluid, or edema. He also has HTN, hypothyroidism, anemia 2' to CKD, Crohn's which is in remission on azathio rm/Humira. 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 MEDS: Outpatient Prescriptions Marked as Taking for the 02/25/16 encounter (Off-Site Visit) with Hubert Drake DO Medication Sig Dispense Refill Adalimumab (HUMIRA SC) Inject 40 mg under the skin every 14 days. azaTHIOprine (IMURAN) 50 mg tablet Take 2 tablets PO in AM and 1/2 tablet in PM b complex-vitamin c-folic acid (NEPHRO-ANDI) tablet Take 1 tablet by mouth Daily. 90 ta blet 4 carvedilol (COREG) 12.5 mg tablet Take 1 tablet by mouth 2 times daily (with breakfast & dinner). 60 tablet 5 escitalopram (LEXAPRO) 20 mg tablet Take 20 mg by mouth Daily. pantoprazole (PROTONIX) 40 mg tablet Take 40 mg by mouth every morning (before breakfas t). CAPD: 2000cc exchanges, 1.5% Dianeal, 3 exchange /day. Allergies Allergen Reactions Lisinopril cough Review of Systems Objective: BP 109/82 mmHg | Temp(Src) 35.7 C (96.2 F) | Wt 89.6 kg (197 lb 8.5 oz) Physical Exam Heart: Regular rate and rhythm with no S3, S4, murmur or rub. Lungs: CTA bilaterally. No rales or wheezes. Abdomen: Soft, nontender, normoactive bowel sounds, no rebound, exit site at RLQ is edgar ar and dry. Extremities: no clubbing, cyanosis, edema. LAB: BUN 29, Cr 3.42, K+ 4.2, HCO3 25, Ca++ 9.3, PO4 2.8, Alb 4.6, Hb 13.0, TSat. = 35 %, Ferritin 255. Assessment: 1. ESRD--clinically, he appears well dialyzed on his current volume of exchanges. He whit ears to still have some modest rincon function. 2. Hypertension--good control from review of his home records. 3. Anemia 2' to CKD-- His Hb appears stable on the current EPO, anemia algorithm. His ir on stores appear adequate. 4. CKD Mineral Bone Disease-- His phosphorus control appears stable on the current dose of Renvela. He appears extremely compliant with all phases of his diet, fluid and PO4 restriction. 5. Nutrition--his appetite is excellent on the current Rx. 6. 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 I highly recommend him, without any reservation. 7. Crohn's --appears to be in remission on Humira, by History. Plan: 1. I reviewed with Laurita his nutrition, anemia, Ca++, PO4, and BP control. 2. Will hold his EPO until the Hb is < 11.0 g/dl , while rechecking his Hb weekly. 3. I encouraged Fitzwilliam Ward, that he is doing an excellent job with his diet, adequacy and PO4 control. 4. Will recheck him in one month with lab. : [place] Polo Lorenzo MD, [facility], [facility] documented in thi s encounter Plan of [...] | | | | | [place] [address] | | | | | | [phone] | | | | | | | | +--------+---------+ + + + documented as of this encounter Visit Diagnoses + + | Diagnosis | + + | End stage renal disease (HCC) - Primary End stage renal disease | + + documented in this encounter"
--- OUTSIDE RECORDS SUMMARY | ~2019-12-22 | XMS | Encounter Summary ---
Demographics + + + | Address | [address] [place] [address] | | | [place] [address] | + + + | Home Phone | | + + + | Preferred Language | Unknown | + + + | Marital Status | | + + + | Taoism Affiliation | CHR | + + + [...] Team Providers + +------+ + | Care Cotton Picker Operator Name | Role | Phone | + +------+ + | Jt Perkins MD | PCP | | + +------+ + Encounter Details +--------+ + + + + | Date | Type | Department | Care Team | Description | +--------+ + + + + | 08/23/ | Telephone | Transplant Social | Bryon, | | | 2019 | | Work [address] | Maribel [facility] [address] | | | | | Michelle Adam | [address] [facility] | | | | | [place], [place] | [address] [place], [place] | | | | | [address] [place], [place] | [address] | | | | | [address] | [phone] | | | | | [phone] | | | +--------+ + + + [...]
--- OUTSIDE RECORDS SUMMARY | ~2019-12-22 | XMS | Encounter Summary ---
Demographics + + + | Address | [address] [place] [address] | | | [place] [address] | + + + | Home Phone | | + + + | Preferred Language | Unknown | + + + | Marital Status | | + + + | Episcopal Affiliation | CHR | + + + | Race | White | + + + | Ethnic Group | Not or | + + + Author + + + | Author | [facility] | + + + | Organization | [facility] | + + + | Address | Unknown | + + + | Phone | Unavailable | + + + Support + + +---------+ + | Name | Relationship | Address | Phone | + + +---------+ + | Misty Oneill | ECON | Unknown | | + + +---------+ + Care Team Providers + +------+ + | Care Security Professional Name | Role | Phone | + +------+ + | Hai Holman MD | PCP | | + +------+ + Reason for Visit + + + | Reason | Comments | + + + | Lab Results | MDRD 6: 09/26/16 | + + + Encounter Details +--------+ + + + + | Date | Type | Department | Care Team | Description | +--------+ + + + + | 10/24/ | Abstract | Clinical | Santos Lorenzo, | Lab Results (MDRD 6: | | 2017 | | Transplant Services | [address] | 09/26/16) | | | | [address] | [address] | | | | | [place], | [place], [place] | | | | | [place] [address] | [address] | | | | | [phone] | [phone] | | | | | | | [...] + | MDRD 6 | Routin | 09/26/2016 | | Results for this | | | e | | | procedure are in the | | | | | | results section. | + +--------+ + + + documented in this encounter Results MDRD 6 (09/26/2016) + +-------+ + + + | Component | Value | Ref Range | Performed | Pathologist | | | | | At | Signature | + +-------+ + + + | MDRD6 | 21.97 | | NON [facility] | | | | | | LAB | | + +-------+ + + + | BUN, PLASMA | 29 | mg/dL | NON [facility] | | | (LAB) | | | LAB | | + +-------+ + + + | CREATININE | 3.49 | mg/dL | NON [facility] | | | PLASMA | | | LAB | | | (LAB) | | | | | + +-------+ + + + + + | Specimen | + + | Blood - Blood | | (substance) | + + + + + | Narrative | Performed At | + + + | Christine Tirado | NON [facility] | | [facility] [address] [address] | | |[address] | | |[place] [address] | | + + + + +---------+ + + | Performing | Address | City/State/Zipcode | Phone Number | | Organization | | | | + +---------+ + + | NON [facility] | | | | + +---------+ + + documented in this encounter Visit Diagnoses Not on filedocumented in this encounter"
--- OUTSIDE RECORDS SUMMARY | ~2019-12-22 | XMS | Encounter Summary ---
Demographics + + + | Address | [address] [place] [address] | | | [place] [address] | + + + | Home Phone [...] Team Providers + +------+ + | Care Lead Refiner Name | Role | Phone | + +------+ + | Jt Perkins MD | PCP | | + +------+ + Encounter Details +--------+ + + + + | Date | Type | Department | Care Team | Description | +--------+ + + + + | 02/19/ | Documentati | Transplant Social | Margaret Holman, | | | 2018 | on | Work [address] | BAR [facility]OST [address] | | | | | Michelle Adam | [facility] | | | | | [address], [place] | [place], [place] | | | | | [address] [place], [place] | [address] | | | | | [address] | [phone] | | | | | [phone] | | | +--------+ + + + [...]
--- OUTSIDE RECORDS SUMMARY | ~2019-12-22 | XMS | Encounter Summary ---
Demographics + + + | Address | [address] | | | [place] [address] | + + + | Home Phone | | + + + | Preferred Language | Unknown | + + + | Marital Status | | + + + | Pentecostal Affiliation | 1041 | + + + | Race | Unknown | + + + | Ethnic Group | Unknown | + + + Author + + + | Author | [facility] | | | and [place] | + + + | Organization | [facility] | | | and [place] | + + + | Address | Unknown | + + + | Phone | Unavailable | + + + Support + + + + + | Name | Relationship | Address | Phone | + + + + + | Ryan Oneill | ECON | [place], [place] | | | | | [address] | | + + + + + | Misty Boateng | ECON | [address] | | | | | [place], [place] | | | | | [address] | | + + + + + Care Team Providers + +------+ + | Care Business Services Representative Name | Role | Phone | + +------+ + PCP | Unavailable | + +------+ + Reason for Visit + + + | Reason | Comments | + + + | Medication Refill | | + + + Encounter Details +--------+--------+ + + + | Date | Type | Department | Care Team | Description | +--------+--------+ + + + | 04/02/ | Refill | [facility] [place] | Christine Martinez W, | Medication Refill | | 2015 | | NEPHROLOGY [address] | MD [address] | | | | | [address] | [address] [place] | | | | | [place], [place] | [place] [address] | | | | | [address] | [phone] | | | | | [phone] | | | +--------+--------+ + + + Social History + +-------+ [...] 2020 | Visit | | MD Monica Manzanares | | | | | | [place] | | | | | | [place] [address] | | | | | | [phone] | | | | | | | | +--------+---------+ + + + documented as of this encounter Visit Diagnoses Not on filedocumented in this encounter"
--- OUTSIDE RECORDS SUMMARY | ~2019-12-22 | XMS | Encounter Summary ---
Demographics + + + | Address | [address] [place] [address] | | | [place] [address] | + + + | Home Phone | | + + + | Preferred Language | Unknown | + + + | Marital Status | | + + + | Church Affiliation | CHR | + + + | Race | White | + + + | Ethnic Group | Not or | + + + Author + + + | Author | [facility] | + + + | Organization | [facility] | + + + | Address | Unknown | + + + | Phone | Unavailable | + + + Support + + +---------+ + | Name | Relationship | Address | Phone | + + +---------+ + | Misty Oneill | ECON | Unknown | | + + +---------+ + Care Team Providers + +------+ + | Care Dry Roller Name | Role | Phone | + +------+ + | Hai Holman MD | PCP | | + +------+ + Reason for Visit + + + | Reason | Comments | + + + | Tx Recommendation | | | Tracking | | + + + Encounter Details +--------+ + + + + | Date | Type | Department | Care Team | Description | +--------+ + + + + | 12/09/ | Telephone | Clinical | Thi Aden, | Tx Recommendation | | 2016 | | Transplant Services | RN [address] [facility] | Tracking | | | | [address] | [address] | | | | | Kait Bar[place], | [place], [place] | | | | | [place] [address] | [address] | | | | | [phone] | | | +--------+ + + + [...]
--- OUTSIDE RECORDS SUMMARY | ~2019-12-22 | XMS | Encounter Summary ---
Demographics + + + | Address | [address] | | | [place] [address] | + + + | Home Phone | | + + + | Preferred Language | Unknown | + + + | Marital Status | | + + + | Adventism Affiliation | 1041 | + + + | Race | Unknown | + + + | Ethnic Group | Unknown | + + + Author + + + | Author | [facility] | | | and [place] | + + + | Organization | [facility] | | | and [place] | + + + | Address | Unknown | + + + | Phone | Unavailable | + + + Support + + + + + | Name | Relationship | Address | Phone | + + + + + | Ryan Oneill | ECON | [place], [place] | | | | | [address] | | + + + + + | Misty Boateng | ECON | [address] | | | | | [place], [place] | | | | | [address] | | + + + + + Care Team Providers + +------+ + | Care Dip Unit Operator Name | Role | Phone | + +------+ + PCP | Unavailable | + +------+ + Encounter Details +--------+ + + + + | Date | Type | Department | Care Team | Description | +--------+ + + + + | 09/29/ | Orders Only | [facility] [place] | Christine Martinez W, | Chronic kidney | | 2017 | | NEPHROLOGY [address] | [address] | disease, stage IV | | | | [address] | [address] [place] | (severe) (HCC) | | | | [place], [place] | [place] [address] | (Primary Dx) | | | | [address] | [phone] | | | | | [phone] | | | +--------+ + + + [...] encounter Progress Notes Kenyatta Jacome RN - 09/29/2016 4:13 PM [facility] for 10/20/16 sent [facility] documented in this encounter Plan of [...] | | | | | | [place] [address] | | | | | | [phone] | | | | | | | | +--------+---------+ + + + documented as of this encounter Visit Diagnoses + + | Diagnosis | + + | Chronic kidney disease, stage IV (severe) (HCC) - Primary Chronic kidney disease, | | Stage IV (severe) | + + documented in this encounter"
--- OUTSIDE RECORDS SUMMARY | ~2019-12-22 | XMS | Encounter Summary ---
Demographics + + + | Address | [address] | | | [place] [address] | + + + | Home Phone | | + + + | Preferred Language | Unknown | + + + | Marital Status | | + + + | Taoism Affiliation | 1041 | + + + | Race | Unknown | + + + | Ethnic Group | Unknown | + + + Author + + + | Author | [facility] | | | and [place] | + + + | Organization | [facility] | | | and [place] | + + + | Address | Unknown | + + + | Phone | Unavailable | + + + Support + + + + + | Name | Relationship | Address | Phone | + + + + + | Ryan Oneill | ECON | [place], [place] | | | | | [address] | | + + + + + | Misty Boateng | ECON | [address] | | | | | [place], [place] | | | | | [address] | | + + + + + Care Team Providers + +------+ + | Care Insulator Cutter And Former Name | Role | Phone | + +------+ + PCP | Unavailable | + +------+ + Encounter Details +--------+ + + + + | Date | Type | Department | Care Team | Description | +--------+ + + + + | 10/28/ | Documentati | [facility] | Peace Drake | | | 2016 | on | NEPHROLOGY [address] | M, DO [address] | | | | | [address] | [place] | | | | | [place], [place] | [place], [place] | | | | | [address] | [address] | | | | | [phone] | | | +--------+ + + + [...] PDTMonthly peritoneal dialysis progress note e-faxed to [facility], Hia Holman MD on 11/02/15.Electronically s igned by [...] seen on CAPD training a t the [facility], [place]. He also has HTN, hypothyroidism, anemia 2' to CKD, Crohn's which is in remission on azathioprine/Humira. 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 He states that his Crohn's symptoms [...] to replace his H2O soluble vitamins. : Monarch Polo Holman MD documented in thi s [...] | | | | | [place] [address] | | | | | | [phone] | | | | | | | [...]
--- OUTSIDE RECORDS SUMMARY | ~2019-12-22 | XMS | Encounter Summary ---
Demographics + + + | Address | [address] [place] [address] | | | [place] [address] | + + + | Home Phone [...] + + + | Author | [facility] | + + + | Organization | [facility] | + + + | Address | Unknown | + + + | Phone | Unavailable | + + + Support + + +---------+ + | Name | Relationship | Address | Phone | + + +---------+ + | Misty Oneill | ECON | Unknown | | + + +---------+ + Care Team Providers + +------+ + | Care Deal Architect Name | Role | Phone | + +------+ + | tJ Perkins MD | PCP | | + +------+ + Encounter Details +--------+ + + + + | Date | Type | Department | Care Team | Description | +--------+ + + + + | 02/19/ | Documentati | Transplant Social | Margaret Holman, | | | 2018 | on | Work [address] | [place] MACHINE OPERATOR [address] | | | | | Michelle Adam | [facility] | | | | | [address], [place] | [place], [place] | | | | | [address] [place], [place] | [address] | | | | | [address] | [phone] | | | | | [phone] | | | +--------+ + + + [...]
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
--- OUTSIDE RECORDS SUMMARY | ~2019-12-22 | XMS | Encounter Summary ---
Demographics + + + | Address | [address] | | | [place] [address] | + + + | Home Phone | | + + + | Preferred Language | Unknown | + + + | Marital Status | | + + + | Caodaism Affiliation | 1041 | + + + | Race | Unknown | + + + | Ethnic Group | Unknown | + + + Author + + + | Author | [facility] | | | and [place] | + + + | Organization | [facility] | | | and [place] | + + + | Address | Unknown | + + + | Phone | Unavailable | + + + Support + + + + + | Name | Relationship | Address | Phone | + + + + + | Ryan Oneill | ECON | [place], [place] | | | | | [address] | | + + + + + | Misty Boateng | ECON | [address] | | | | | [place], [place] | | | | | [address] | | + + + + + Care Team Providers + +------+ + | Care Garment Fitter Name | Role | Phone | + +------+ + PCP | Unavailable | + +------+ + Encounter Details +--------+ + + + + | Date | Type | Department | Care Team | Description | +--------+ + + + + | 08/21/ | Orders Only | [facility] | Christine Martinez W, | Interstitial | | 2016 | | NEPHROLOGY [address] | MD [address] | nephritis chronic | | | | [address] | [address] [place] | (Primary Dx) | | | | [place] | [place] [address] | | | | | [address] | [phone] | | | | | [phone] | | | +--------+ + + + [...] documented as of this encounter Progress Notes Jennifer Nobel RN - 08/21/2015 2:42 PM PST3/08/04- Interpath [place] documented in this en counter Plan of Treatment +--------+---------+ + + + | Date | Type | Specialty | Care Team | Description | +--------+---------+ + + + | 03/20/ | Office | Nephrology | Christine Martinez, | | | 2019 | Visit | | MD Monica Manzanares | | | | | | [address] | | | | | | [place] [address] | | | | | | [phone] | | | | | | | | +--------+---------+ + + + + +------+--------+ + + | Name | Type | Priori | Associated Diagnoses | Order Schedule | | | | ty | | | + +------+--------+ + + | Renal Function Panel | Lab | Routin | Interstitial | Expected: 09/13/2015 | | | | e | nephritis chronic | (Approximate), | | | | | | Expires: 08/21/2016 | + +------+--------+ + + documented as of this encounter Visit Diagnoses + + | Diagnosis | + + | 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
--- OUTSIDE RECORDS SUMMARY | ~2019-12-22 | XMS | Encounter Summary ---
Demographics + + + | Address | [address] | | | [place] [address] | + + + | Home Phone | | + + + | Preferred Language | Unknown | + + + | Marital Status | | + + + | Latter Day Affiliation | 1041 | + + + [...] [place], [place] | | | | | [address] | | + + + + + | Misty Boateng | ECON | [address] | | | | | [place] | | | | | [address] | | + + + + + Care Team Providers + +------+ + | Care C D Area Supervisor Name | Role | Phone | + +------+ + PCP | Unavailable | + +------+ + Reason for Visit +--------+ + | Reason | Comments | +--------+ + | Other | | +--------+ + Encounter Details +--------+ + + + + | Date | Type | Department | Care Team | Description | +--------+ + + + + | 05/24/ | Telephone | [facility] [place] | Christine Martinez W, | Other | | 2014 | | NEPHROLOGY [address] | MD [address] | | | | | [address] | [address] | | | | | [place] | [place] [address] | | | | | [address] | [phone] | | | | | [phone] | | | +--------+ + + + [...] | | | | | [place] [address] | | | | | | [phone] | | | | | | | | +--------+---------+ + + + documented as of this encounter Visit Diagnoses Not on filedocumented in this encounter"
--- OUTSIDE RECORDS SUMMARY | ~2019-12-22 | XMS | Encounter Summary ---
Demographics + + + | Address | [address] | | | [place] [address] | + + + | Home Phone | | + + + | Preferred Language | Unknown | + + + | Marital Status | | + + + | Yazidism Affiliation | 1041 | + + + [...] [place], [place] | | | | | [address] | | + + + + + | Misty Boateng | ECON | [address] | | | | | [place] | | | | | [address] | | + + + + + Care Team Providers + +------+ + | Care Gericare Aide Teacher Name | Role | Phone | + +------+ + PCP | Unavailable | + +------+ + Reason for Visit Auth/Cert +--------+--------+ + + + + | Status | Reason | Specialty | Diagnoses / | Referred By | Referred To | | | | | Procedures | Contact | Contact | +--------+--------+ + + + + | Closed | | | Diagnoses | | | | | | | Acute | | | | | | | kidney | | | | | | | injury | | | | | | | Procedures | | | | | | | CT GUIDED | | | | | | | RENAL BIOPSY | | | +--------+--------+ + + + + Encounter Details +--------+---------+ + + + | Date | Type | Department | Care Team | Description | +--------+---------+ + + + | 06/11/ | Surgery | [facility] | Jose Juan Yanes MD | CT GUIDED RENAL | | 2014 | | [facility] | [address] | BIOPSY | | | | [address] | [place] | | | | | [place] | [address] | | | | | [address] | [phone] | | | | | [phone] | | | +--------+---------+ + + + Social History [...] + + + | Blood Pressure | 100/60 | 06/11/2015 3:08 PM | | | | | PST | | + + + + + | Pulse | 60 | 06/11/2015 3:08 PM | | | | | PST | | + + + + + | Temperature | 36.8 C (98.2 F) | 06/11/2015 12:00 PM | | | | | PST | | + + + + + | Respiratory Rate | 18 | 06/11/2015 3:08 PM | | | | | PST | | + + + + + | Oxygen Saturation | 99% | 06/11/2015 3:08 PM | | | | | PST | | + + + + + | Inhaled Oxygen | - | - | | | Concentration | | | | + + + + + | Weight | 86.2 kg (190 lb) | 06/11/2015 12:00 PM | | | | | PST | | + + + + + | Height | 182.9 cm (6') | 06/11/2015 12:00 PM | | | | | PST | | + + + + + | Body Mass Index | 25.77 | 06/11/2015 12:00 PM | | | | | PST | | + + + + + documented in this encounter Discharge Instructions Instructions Christine Martinez MD - 06/11/2015Please call Rozina Baird, peritoneal dialys is nurse, at [phone]. documented in this encounter Medications at Time of Discharge + + + +---------+ + + | Medication | Sig | Dispensed | Refills | Start | End Date | | | | | | Date | | + + + +---------+ + + | levothyroxine | Take 50 mcg by mouth | | 0 | 12/05/19 | | | (SYNTHROID) 50 mcg | every morning | | | 11 | | | tablet | (before breakfast). | | | | | + + + +---------+ + + | pantoprazole | Take 40 mg by mouth | | 0 | | | | (PROTONIX) 40 mg | every morning | | | | | | tablet | (before breakfast). | | | | | + + + +---------+ + + | escitalopram | Take 20 mg by mouth | | 0 | | | | (LEXAPRO) 20 mg | Daily. | | | | 6 | | tablet | | | | | | + + + +---------+ + + | methotrexate 10 MG | Take 10 mg by mouth | | 0 | | | | tablet | Once a week. | | | | 5 | + + + +---------+ + + documented as of this encounter Progress Notes Jose Juan Yanes MD - 06/13/2015 10:56 AM PSTThe patient was called at home at 10:56 by jules fu. I inquired about symptoms relating to the recent renal biopsy. His discomfort was sligh tly better, no worse. He had been given Prednisone just following the biopsy so this has gi tommy him typical steroid related symptoms, mostly a jittery feeling. Melania Pedraza RN - 06/11/2015 3:08 PM PS TLab called to come Draw. P M Miranda in this encounter Plan of Treatment +--------+---------+ + + + | Date | Type | Specialty | Care Team | Description | +--------+---------+ + + + | 03/20/ | Office | Nephrology | Christine Martinez, | | | 2019 | Visit | | MD Monica Manzanares | | | | | | [address] | | | | | | [place] [address] | | | | | | [phone] | | | | | | | | +--------+---------+ + + + documented as of this encounter Procedures + +--------+ + + + | Procedure Name | Priori | Date/Time | Associated Diagnosis | Comments | | | ty | | | | + +--------+ + + + | CBC WITH | Routin | 06/11/2015 | | Results for this | | DIFFERENTIAL | e | 3:14 PM | | procedure are in the | | | | PST | | results section. | + +--------+ + + + | BASIC METABOLIC | Routin | 06/11/2015 | | Results for this | | PANEL | e | 3:14 PM | | procedure are in the | | | | PST | | results section. | + +--------+ + + + | CT GUIDED BIOPSY | Routin | 06/11/2015 | RAEGAN (acute kidney | Results for this | | RENAL | e | 2:29 PM | injury) (HCC) | procedure are in the | | | | PST | | results section. | + +--------+ + + + | CT GUIDED RENAL | | 06/11/2015 | Acute kidney | | | BIOPSY | | 1:00 PM | injury | | | | | PST | | | + +--------+ + + + | PROTIME INR | STAT | 06/11/2015 | | Results for this | | | | 12:52 PM | | procedure are in the | | | | PST | | results section. | + +--------+ + + + documented in this encounter Results Basic Metabolic Panel (06/11/2015 3:14 PM PST) + + + + + + | Component | Value | Ref Range | Performed | Pathologist | | | | | At | Signature | + + + + + + | Na | 140 | 136 - 149 | [facility] | | | | | mmol/L | [facility] | | | | | | [facility] | | | | | | [facility] - | | | | | | LABORATORY | | + + + + + + | K | 4.3 | 3.5 - 5.1 | [facility] | | | | | mmol/L | [facility] | | | | | | [facility] | | | | | | C[facility] - | | | | | | LABORATORY | | + + + + + + | Cl | 108 | 98 - 109 mmol/L | [facility] | | | | | | [facility] | | | | | | [facility] | | | | | | CENTER - | | | | | | LABORATORY | | + + + + + + | CO2 | 24 | 24 - 31 mmol/L | [facility] | | | | | | [facility] | | | | | | [facility] | | | | | | CENTER - | | | | | | LABORATORY | | + + + + + + | Anion Gap | 8 | 3 - 16 mmol/L | [facility] | | | | | | [facility] | [facility] | [facility] | | | | | | [facility] - | | | | | | LABORATORY | | + + + + + + | Glucose | 85 | 70 - 109 mg/dL | [facility] | | | | | | [facility] | | | | | | [facility] | | | | | | CENTER - | | | | | | LABORATORY | | + + + + + + | BUN | 43 (H) | 7 - 18 mg/dL | [facility] | | | | | | [facility] | | | | | | [facility] | | | | | | CENTER - | | | | | | LABORATORY | | + + + + + + | Creatinine | 4.35 (H) | 0.60 - 1.30 | [facility] | | | | | mg/dL | [facility] | | | | | | MEDICAL | | | | | | CENTER - | | | | | | LABORATORY | | + + + + + + | eGFR if not | 15 (L)Comment: | >=60 | [facility] | | | | GLOMERULAR FILTRATION | mL/min/1.73m2 | [facility] | | | [place]IAN | RATE,ESTIMATED | | MEDICAL | | | | mL/min/1.42s1Zioq than | | CENTER - | | | | 60 Chronic kidney | | LABORATORY | | | | disease,if found over a | | | | | | 3-month period.Less than | | | | | | 15 Kidney failureFor | | | | | | | | | | | | Americans,multiply the | | | | | | calculated GFR by 1.21. | | | | | | | | | | + + + + + + | Calcium | 8.5 | 8.3 - 10.5 | [facility] | | | | | mg/dL | [facility] | | | | | | MEDICAL | | | | | | CENTER - | | | | | | LABORATORY | | + + + + + + | BUN/Creatin | 9.9 | | [facility] | | | ine Ratio | | | [facility] | [facility] | [facility] | | | | | | CENTER - | | | | | | LABORATORY | | + + + + + + + + | Specimen | + + | Blood | + + + + + + + | Performing | Address | City/State/Zipcode | Phone Number | | Organization | | | | + + + + + | [facility] | [address] | [place] | [phone] | | [facility] | | [address] | | | - LABORATORY | | | | + + + + + CBC with Differential (06/11/2015 3:14 PM PST) + + + + + + | Component | Value | Ref Range | Performed | Pathologist | | | | | At | Signature | + + + + + + | WBC | 4.5 | 4.0 - 11.0 K/uL | [facility] | | | | | | [facility] | | | | | | MEDICAL | | | | | | CENTER - | | | | | | LABORATORY | | + + + + + + | RBC | 3.27 (L) | 4.30 - 5.70 | [facility] | | | | | M/uL | [facility] | | | | | | MEDICAL | | | | | | CENTER - | | | | | | LABORATORY | | + + + + + + | Hemoglobin | 9.8 (L) | 13.5 - 18.0 | [facility] | | | | | g/dL | [facility] | | | | | | MEDICAL | | | | | | CENTER - | | | | | | LABORATORY | | + + + + + + | Hematocrit | 29.2 (L) | 40.0 - 51.0 % | [facility] | | | | | | [facility] | | | | | | [facility]ICAL | | | | | | CENTER - | | | | | | LABORATORY | | + + + + + + | MCV | 89.3 | 83.0 - 101.0 fL | [facility] | | | | | | [facility] | | | | | | [facility]ICAL | | | | | | CENTER - | | | | | | LABORATORY | | + + + + + + | MCH | 30.0 | 28.0 - 35.0 pg | [facility] | | | | | | [facility] | | | | | | [facility]ICAL | | | | | | CENTER - | | | | | | LABORATORY | | + + + + + + | MCHC | 33.5 | 32.0 - 36.0 | [facility] | | | | | g/dL | [facility] | | | | | | MEDICAL | | | | | | CENTER - | | | | | | LABORATORY | | + + + + + + | RDW-CV | 13.2 | <15.0 % | [facility] | | | | | | [facility] | | | | | | MEDICAL | | | | | | CENTER - | | | | | | LABORATORY | | + + + + + + | Platelet | 175 | 140 - 440 K/uL | [facility] | | | Count | | | [facility] | | | | | | MEDICAL | | | | | | CENTER - | | | | | | LABORATORY | | + + + + + + | MPV | 6.0 | fL | [facility] | | | | | | [facility] | | | | | | MEDICAL | | | | | | CENTER - | | | | | | LABORATORY | | + + + + + + | % | 67.7 | 45.0 - 82.0 % | [facility] | | | Neutrophils | | | [facility] | | | | | | MEDICAL | | | | | | CENTER - | | | | | | LABORATORY | | + + + + + + | % | 22.2 | 20.0 - 45.0 % | [facility] | | | Lymphocytes | | | [facility] | | | | | | MEDICAL | | | | | | CENTER - | | | | | | LABORATORY | | + + + + + + | % Monocytes | 8.9 | 4.0 - 12.0 % | [facility] | | | | | | [facility] | | | | | | MEDICAL | | | | | | CENTER - | | | | | | LABORATORY | | + + + + + + | % | 0.7 | 0.0 - 5.0 % | [facility] | | | Eosinophils | | | [facility] | | | | | | MEDICAL | | | | | | CENTER - | | | | | | LABORATORY | | + + + + + + | % Basophils | 0.5 | 0.0 - 1.0 % | [facility] | | | | | | [facility] | | | | | | MEDICAL | | | | | | CENTER - | | | | | | LABORATORY | | + + + + + + | Absolute | 3.10 | 1.80 - 8.50 | [facility] | | | Neutrophils | | K/uL | [facility] | | | | | | MEDICAL | | | | | | CENTER - | | | | | | LABORATORY | | + + + + + + | Absolute | 1.00 | 0.60 - 3.20 | [facility] | | | Lymphocytes | | K/uL | [facility] | | | | | | MEDICAL | | | | | | CENTER - | | | | | | LABORATORY | | + + + + + + | Absolute | 0.40 | 0.00 - 1.00 | [facility] | | | Monocytes | | K/uL | [facility] | | | | | | MEDICAL | | | | | | CENTER - | | | | | | LABORATORY | | + + + + + + | Absolute | 0.00 | 0.00 - 0.40 | [facility] | | | Eosinophils | | K/uL | [facility] | | | | | | MEDICAL | | | | | | CENTER - | | | | | | LABORATORY | | + + + + + + | Absolute | 0.00 | 0.00 - 0.10 | [facility] | | | Basophils | | K/uL | [facility] | | | | | [facility] | | | | | | CENTER - | | | | | | LABORATORY | | + + + + + + + + | Specimen | + + | Blood | + + + + + + + | Performing | Address | City/State/Zipcode | Phone Number | | Organization | | | | + + + + + | [facility] | [address] | [place] | [phone] | | [facility] | | [address] | | | - LABORATORY | | | | + + + + + CT Guided Biopsy Renal (06/11/2015 2:29 PM PST) + + | Specimen | + + | | + + + + + | Narrative | Performed At | + + + | CT GUIDED BIOPSY RENAL 06/11/2015 1:43 PM HISTORY: Acute kidney | [facility] | | injury. COMPARISON: None. PROTOCOL: After explaining the | [facility] | | risks and benefits of the procedure, informed consent was obtained | MEDICAL CENTER | | from the patient. Risks discussed included bleeding and infection. The | - IMAGING | | patient received conscious sedation from the radiology nurse using | | | fentanyl and Versed. The amounts utilized are documented in the | | | nursing notes. A preprocedural planning CT was utilized to plan | | | safe percutaneous access to the area of interest. This area was | | | prepped and draped in the usual sterile fashion. 7 mL of 1% lidocaine | | | without epinephrine was used for local anesthesia. This was placed | | | at the skin surface and deep to the margin of the left kidney using | | | CT guidance. Using CT guidance the 17-gauge introducer for a | | | BioPince biopsy device was advanced to the left kidney. | | | Subsequently, biopsy was performed with 2 passes at 2 cm with an | | | 18-gauge BioPince full core biopsy instrument. The patient tolerated | | | the procedure well. Post procedure CT imaging demonstrated | | | perinephric hematoma. Joseph seal was prepared and administered via | | | the in-place introducer. This was placed at the renal capsule and in | | | the perinephric space. The patient was placed left side down. | | | The patient was transferred to same day surgery. The patient was | | | monitored according to protocol. The patient remained left side | | | down for approximately 1 hour. The patient was further evaluated | | | approximately 1 hour post biopsy by myself. Discomfort had | | | stabilized. The patient was otherwise doing well. Patient was | | | monitored for a second hour and then discharged in stable condition. | | | Discharge instructions were provided. The pathology specimens | | | were passed to Dr. Martinez in the CT suite. Pathology is pending at | | | this time. IMPRESSION - Successful CT guided random left renal | | | biopsy. Dictated and Signed by: Jose Juan Yanes MD | | | Electronically signed: 06/11/2015 4:17 PM | | + + + + + | Procedure Note | + + | Chava, Rad Results In - 06/11/2015 4:[address] GUIDED BIOPSY RENAL 06/11/2015 1:43 | | PMHISTORY: Acute kidney injury.COMPARISON: None.PROTOCOL: After explaining the risks and | | benefits of the procedure, informed consent wasobtained from the patient. Risks | | discussed included bleeding and infection. Thepatient received conscious sedation from | | the radiology nurse using fentanyl andVersed. The amounts utilized are documented in | | the nursing notes. Apreprocedural planning CT was utilized to plan safe percutaneous | | access to thearea of interest. This area was prepped and draped in the usual | | sterilefashion. 7 mL of 1% lidocaine without epinephrine was used for local anesthesia. | | This was placed at the skin surface and deep to the margin of the left kidneyusing CT | | guidance. Using CT guidance the 17-gauge introducer for a BioPincebiopsy device was | | advanced to the left kidney. Subsequently, biopsy wasperformed with 2 passes at 2 cm | | with an 18-gauge BioPince full core biopsyinstrument. The patient tolerated the | | procedure well. Post procedure CT imagingdemonstrated perinephric hematoma. Joseph seal | | was prepared and administered viathe in-place introducer. This was placed at the renal | | capsule and in theperinephric space. The patient was placed left side down. The | | patient wastransferred to same day surgery. The patient was monitored according | | toprotocol. The patient remained left side down for approximately 1 hour. Thepatient | | was further evaluated approximately 1 hour post biopsy by myself. Discomfort had | | stabilized. The patient was otherwise doing well. Patient wasmonitored for a second | | hour and then discharged in stable condition. Dischargeinstructions were provided.The | | pathology specimens were passed to Dr. Martinez in the CT suite. Pathology ispending at | | this time.IMPRESSION -Successful CT guided random left renal biopsy.Dictated and Signed | | by: Jose Juan Yanes MD Electronically signed: 06/11/2015 4:17 PM | |transferred to same day surgery. The patient was monitored according to | |protocol. The patient remained left side down for approximately 1 hour. The | |patient was further evaluated approximately 1 hour post biopsy by myself. | |Discomfort had stabilized. The patient was otherwise doing well. Patient was | |monitored for a second hour and then discharged in stable condition. Discharge | |instructions were provided. | | | |The pathology specimens were passed to Dr. Martinez in the CT suite. Pathology is | |pending at this time. | | | |IMPRESSION - | | | |Successful CT guided random left renal biopsy. | | | |Dictated and Signed by: Jose Juan Yanes MD | | Electronically signed: 06/11/2015 4:17 PM | + + + + + + + | Performing | Address | City/State/Zipcode | Phone Number | | Organization | | | | + + + + + | [facility] | [address] | [place] | [phone] | | [facility] | | [address] | | | - IMAGING | | | | + + + + + Protime INR (06/11/2015 12:52 PM PST) + + + + + + | Component | Value | Ref Range | Performed | Pathologist | | | | | At | Signature | + + + + + + | Prothrombin | 13.2 | 11.3 - 13.9 | [facility] | | | Time | | seconds | [facility] | | | | | | MEDICAL | | | | | | CENTER - | | | | | | LABORATORY | | + + + + + + | INR | 0.95Comment: Usual Oral | 0.90 - 1.10 | [facility] | | | | Anticoagulation Range: | | [facility] | | | | 2.0 - 3.0High | | MEDICAL | | | | Level Oral | | CENTER - | | | | Anticoagulation Range: | | LABORATORY | | | | 2.5 - 3.5 | | | | + + + + + + + + | Specimen | + + | Blood | + + + + + + + | Performing | Address | City/State[facility] | Phone Number | | Organization | | | | + + + + + | [facility] | [address] | [place] | [phone] | | [facility] | | [address] | | | - LABORATORY | | | | + + + + + documented in this encounter Visit Diagnoses Not on filedocumented in this encounter Administered Medications + +--------+ +--------+------+------+ | Medication Order | MAR | Action | Dose | Rate | Site | | | Action | Date | | | | + +--------+ +--------+------+------+ | fentaNYL injection PRN, | Given | 06/11/20 | 50 mcg | | | | Starting Thu06/11/15 at 1400 | | 15 2:00 | | | | | | | PM PST | | | | + +--------+ +--------+------+------+ +---+---+ | | | +---+---+ + +-------+ +--------+---+---+ | fentaNYL injection PRN, | Given | 06/11/20 | 25 mcg | | | | Starting 06/11/15 at 1403 | | 15 2:03 | | | | | | | PM PST | | | | + +-------+ +--------+---+---+ +---+---+ | | | +---+---+ + +-------+ +--------+---+---+ | midazolam (VERSED) 1 mg/mL | Given | 06/11/20 | 0.5 mg | | | | injection PRN, Starting Mon | | 15 2:04 | | | | | 06/11/15 at 1400 | | PM PST | | | | + +-------+ +--------+---+---+ +-------+ +------+---+---+ | Given | 06/11/20 | 1 mg | | | | | 15 2:00 | | | | | | PM PST | | | | +-------+ +------+---+---+ +---+---+ | | | +---+---+ + +---------+ +---+ +---+ | sodium chloride 0.9% (NS) | New Bag | 06/11/20 | | 50 mL/hr | | | infusion at 50 mL/hr, | | 15 12:53 | | | | | Intravenous, CONTINUOUS, Starting | | PM PST | | | | | 11/23/15 at 1300, OK to use | | | | | | | implantable port., Pre-op | | | | | | + +---------+ +---+ +---+ +---+---+ | | | +---+---+ documented in this encounter"
--- OUTSIDE RECORDS SUMMARY | ~2019-12-22 | XMS | Encounter Summary ---
Demographics + + + | Address | [address] | | | [place] [address] | + + + | Home Phone | | + + + | Preferred Language | Unknown | + + + | Marital Status | | + + + | Pentecostal Affiliation | 1041 | + + + | Race | Unknown | + + + | Ethnic Group | Unknown | + + + Author + + + | Author | [facility] | | | and [place] | + + + | Organization | [facility] | | | and [place] | + + + | Address | Unknown | + + + | Phone | Unavailable | + + + Support + + + + + | Name | Relationship | Address | Phone | + + + + + | Ryan Oneill | ECON | [place], [place] | | | | | [address] | | + + + + + | Misty Boateng | ECON | [address] | | | | | [place], [place] | | | | | [address] | | + + + + + Care Team Providers + +------+ + | Care Petroleum Refining Firer Name | Role | Phone | + +------+ + PCP | Unavailable | + +------+ + Encounter Details +--------+ + + + + | Date | Type | Department | Care Team | Description | +--------+ + + + + | 06/18/ | Abstract | [facility] | Christine Martinez W, | | | 2016 | | NEPHROLOGY [address] | [address] | | | | | [address] | [address] [place] | | | | | [place], [place] | [place] [address] | | | | | [address] | [phone] | | | | | [phone] | | | +--------+ + + + [...] | | | | | [place] [address] | | | | | | [phone] | | | | | | | | +--------+---------+ + + + documented as of this encounter Procedures + +--------+ + + + | Procedure Name | Priori | Date/Time | Associated Diagnosis | Comments | | | ty | | | | + +--------+ + + + | EXTERNAL LAB: ANIVAL | Routin | 06/17/2017 | | Results for this | | | e | | | procedure are in the | | | | | | results section. | + +--------+ + + + | EXTERNAL LAB: | Routin | 06/17/2017 | | Results for this | | GLUCOSE | e | | | procedure are in the | | | | | | results section. | + +--------+ + + + | EXTERNAL LAB: | Routin | 06/17/2017 | | Results for this | | ALBUMIN | e | | | procedure are in the | | | | | | results section. | + +--------+ + + + | EXTERNAL LAB: | Routin | 06/17/2017 | | Results for this | | PHOSPHORUS | e | | | procedure are in the | | | | | | results section. | + +--------+ + + + | EXTERNAL LAB: | Routin | 06/17/2017 | | Results for this | | CALCIUM | e | | | procedure are in the | | | | | | results section. | + +--------+ + + + | EXTERNAL LAB: CARBON | Routin | 06/17/2017 | | Results for this | | DIOXIDE | e | | | procedure are in the | | | | | | results section. | + +--------+ + + + | EXTERNAL LAB: | Routin | 06/17/2017 | | Results for this | | CHLORIDE | e | | | procedure are in the | | | | | | results section. | + +--------+ + + + | EXTERNAL LAB: | Routin | 06/17/2017 | | Results for this | | POTASSIUM | e | | | procedure are in the | | | | | | results section. | + +--------+ + + + | EXTERNAL LAB: SODIUM | Routin | 06/17/2017 | | Results for this | | | e | | | procedure are in the | | | | | | results section. | + +--------+ + + + | EXTERNAL LAB: | Routin | 06/17/2017 | | Results for this | | VITAMIN D, | e | | | procedure are in the | | 25-HYDROXY | | | | results section. | + +--------+ + + + | EXTERNAL LAB: | Routin | 06/17/2017 | | Results for this | | URINALYSIS | e | | | procedure are in the | | | | | | results section. | + +--------+ + + + | EXTERNAL LAB: KAYLA | Routin | 06/17/2017 | | Results for this | | INTACT | e | | | procedure are in the | | | | | | results section. | + +--------+ + + + | EXTERNAL LAB: | Routin | 06/17/2017 | | Results for this | | PROTEIN/CREATININE | e | | | procedure are in the | | RATIO | | | | results section. | + +--------+ + + + | EXTERNAL LAB: ELIZABETH | Routin | 06/17/2017 | | Results for this | | TOTAL | e | | | procedure are in the | | | | | | results section. | + +--------+ + + + | EXTERNAL LAB: IRON | Routin | 06/17/2017 | | Results for this | | SATURATION | e | | | procedure are in the | | | | | | results section. | + +--------+ + + + | EXTERNAL LAB: IRON | Routin | 06/17/2017 | | Results for this | | BINDING CAPACITY | e | | | procedure are in the | | | | | | results section. | + +--------+ + + + | EXTERNAL LAB: | Routin | 06/17/2017 | | Results for this | | FERRITIN | e | | | procedure are in the | | | | | | results section. | + +--------+ + + + | EXTERNAL LAB: FLORENCE | Routin | 06/17/2017 | | Results for this | | | e | | | procedure are in the | | | | | | results section. | + +--------+ + + + | EXTERNAL LAB: EGFR | Routin | 06/17/2017 | | Results for this | | | e | | | procedure are in the | | | | | | results section. | + +--------+ + + + | EXTERNAL LAB: | Routin | 06/17/2017 | | Results for this | | CREATININE | e | | | procedure are in the | | | | | | results section. | + +--------+ + + + | URINALYSIS WITH | Routin | 06/17/2017 | | Results for this | | MICROSCOPIC | e | | | procedure are in the | | | | | | results section. | + +--------+ + + + documented in this encounter Results External Lab: PTH, Intact (06/17/2017) + + + + + + | Component | Value | Ref Range | Performed | Pathologist | | | | | At | Signature | + + + + + + | PTH Intact, | 117.6 (A) | 15 - 65 | | | | External | | | | | + + + + + + + + | Specimen | + + | | + + External Lab: Protein/Creatinine Ratio (06/17/2017) + + + + + + | Component | Value | Ref Range | Performed | Pathologist | | | | | At | Signature | + + + + + + | Protein/Cre | 0.23 (A) | 0.2 | | | | atinine | | | | | | Ratio, | | | | | | External | | | | | + + + + + + + + | Specimen | + + | | + + Urinalysis With Microscopic (06/17/2017) + + + + + + | Component | Value | Ref Range | Performed | Pathologist | | | | | At | Signature | + + + + + + | WBC UA | 0 | /HPF | | | + + + + + + | Color, | Dark Yellow (A) | Light Yellow, | | | | Urine | | Yellow | | | + + + + + + | Clarity | Clear | | | | + + + + + + | Bacteria, | Negative | Negative /HPF | | | | Urine | | | | | + + + + + + | Nitrite, | Negative | Negative | | | | Urine | | | | | + + + + + + | SQUAMOUS | 1 | /HPF | | | | EPITHELIAL | | | | | | UA | | | | | + + + + + + + + | Specimen | + + | Urine | + + External Lab: ANIVAL (06/17/2017) + +--------+ + + + | Component | Value | Ref Range | Performed | Pathologist | | | | | At | Signature | + +--------+ + + + | BUN, | 30 (A) | 6 - 23 | EXTERNAL | | | External | | | LAB | | + +--------+ + + + + +---------+ + + | Performing | Address | City/State/Zipcode | Phone Number | | Organization | | | | + +---------+ + + | EXTERNAL LAB | | | | + +---------+ + + External Lab: Glucose (06/17/2017) + +-------+ + + + | Component | Value | Ref Range | Performed | Pathologist | | | | | At | Signature | + +-------+ + + + | Glucose, | 92 | 70 - 100 | EXTERNAL | | | External | | | LAB | | + +-------+ + + + + +---------+ + + | Performing | Address | City/State/Zipcode | Phone Number | | Organization | | | | + +---------+ + + | EXTERNAL LAB | | | | + +---------+ + + External Lab: Albumin (06/17/2017) + +-------+ + + + | Component | Value | Ref Range | Performed | Pathologist | | | | | At | Signature | + +-------+ + + + | Albumin, | 4.5 | 3.5 - 5 | EXTERNAL | | | External | | | LAB | | + +-------+ + + + + +---------+ + + | Performing | Address | City/State/Zipcode | Phone Number | | Organization | | | | + +---------+ + + | EXTERNAL LAB | | | | + +---------+ + + External Lab: Phosphorus (06/17/2017) + +-------+ + + + | Component | Value | Ref Range | Performed | Pathologist | | | | | At | Signature | + +-------+ + + + | Phosphorus, | 3.4 | 2.5 - 5 | EXTERNAL | | | External | | | LAB | | + +-------+ + + + + +---------+ + + | Performing | Address | City/State/Zipcode | Phone Number | | Organization | | | | + +---------+ + + | EXTERNAL LAB | | | | + +---------+ + + External Lab: Calcium (06/17/2017) + +-------+ + + + | Component | Value | Ref Range | Performed | Pathologist | | | | | At | Signature | + +-------+ + + + | Calcium, | 9.5 | 8.4 - 10.2 | EXTERNAL | | | External | | | LAB | | + +-------+ + + + + +---------+ + + | Performing | Address | City/State/Zipcode | Phone Number | | Organization | | | | + +---------+ + + | EXTERNAL LAB | | | | + +---------+ + + External Lab: Carbon Dioxide (06/17/2017) + +-------+ + + + | Component | Value | Ref Range | Performed | Pathologist | | | | | At | Signature | + +-------+ + + + | Carbon | 25 | 19 - 31 | EXTERNAL | [...] + +---------+ + + External Lab: Chloride (06/17/2017) + +-------+ + + + | Component [...] + +---------+ + + External Lab: Potassium (06/17/2017) + +-------+ + + + | Component | Value | Ref Range | Performed | Pathologist | | | | | At | Signature | + +-------+ + + + | Potassium, | 4.2 | 3.5 - 5.1 | EXTERNAL | | | External | | | LAB | | + +-------+ + + + + +---------+ + + | Performing | Address | City/State/Zipcode | Phone Number | | Organization | | | | + +---------+ + + | EXTERNAL LAB | | | | + +---------+ + + External Lab: Sodium (06/17/2017) + +-------+ + + + | Component | Value | Ref Range | Performed | Pathologist | | | | | At | Signature | + +-------+ + + + | Sodium, | 139 | 135 - 145 | EXTERNAL | | | External | | | LAB | | + +-------+ + + + + +---------+ + + | Performing | Address | City/State/Zipcode | Phone Number | | Organization | | | | + +---------+ + + | EXTERNAL LAB | | | | + +---------+ + + External Lab: Vitamin D, 25-Hydroxy (06/17/2017) + +--------+ + + + | Component | Value | Ref Range | Performed | Pathologist | | | | | At | Signature | + +--------+ + + + | Vitamin D, | 29 (A) | 30 | EXTERNAL | | | 25-Hydroxy, | | | LAB | | | External | | | | | + +--------+ + + + + + | Specimen | + + | Blood | + + + +---------+ + + | Performing | Address | City/State/Zipcode | Phone Number | | Organization | | | | + +---------+ + + | EXTERNAL LAB | | | | + +---------+ + + External Lab: Urinalysis (06/17/2017) + + + + + + | Component | Value | Ref Range | Performed | Pathologist | | | | | At | Signature | + + + + + + | UA Blood, | negative | | EXTERNAL | | | External | | | LAB | | + + + + + + | UA Glucose, | normal | | EXTERNAL | | | External | | | LAB | | + + + + + + | UA Ketones, | negative | | EXTERNAL | | | External | | | LAB | | + + + + + + | UA Ph, | 7 | 5 - 9 | EXTERNAL | | | External | | | LAB | | + + + + + + | UA | negative | | EXTERNAL | | | Proteins, | | | LAB | | | External | | | | | + + + + + + | UA RBC, | 0 | | EXTERNAL | | | External | | | LAB | | + + + + + + | UA Specific | 1.014 | | EXTERNAL | | | [place], | | | LAB | | | External | | | | | + + + + + + | UA | negative | | EXTERNAL | | | Leukocyte | | | LAB | | | Esterase, | | | | | | External | | | | | + + + + + + + +---------+ + + | Performing | Address | City/State/Zipcode | Phone Number | | Organization | | | | + +---------+ + + | EXTERNAL LAB | | | | + +---------+ + + External Lab: Iron Total (06/17/2017) + +-------+ + + + | Component | Value | Ref Range | Performed | Pathologist | | | | | At | Signature | + +-------+ + + + | Iron, | 67.63 | 37 - 160 | EXTERNAL | | | External | | | LAB | | + +-------+ + + + + +---------+ + + | Performing | Address | City/State/Zipcode | Phone Number | | Organization | | | | + +---------+ + + | EXTERNAL LAB | | | | + +---------+ + + External Lab: Iron Saturation (06/17/2017) + +-------+ + + + | Component | Value | Ref Range | Performed | Pathologist | | | | | At | Signature | + +-------+ + + + | Iron | 20.7 | 20 | EXTERNAL | | | [...] + + External Lab: Iron Binding Capacity (06/17/2017) + +-------+ + + + | Component | Value | Ref Range | Performed | Pathologist | | | | | At | Signature | + +-------+ + + + | Iron | 326 | 245 - 400 | EXTERNAL | | | Binding | [...] | + +---------+ + + External Lab: Ferritin (06/17/2017) + +-------+ + + + | Component | Value | Ref Range | Performed | Pathologist | | | | | At | Signature | + +-------+ + + + | Ferritin, | 149 | | EXTERNAL | | | External | | | LAB | | + +-------+ + + + + +---------+ + + | Performing | Address | City/State/Zipcode | Phone Number | | Organization | | | | + +---------+ + + | EXTERNAL LAB | | | | + +---------+ + + External Lab: CBC (06/17/2017) + +-------+ + + + | Component | Value | Ref Range | Performed | Pathologist | | | | | At | Signature | + +-------+ + + + | WBC, | 5.4 | 4 - 11 | EXTERNAL | | | External | | | LAB | | + +-------+ + + + | HGB, | 14.1 | 12 - 16 | EXTERNAL | | | External | | | LAB | | + +-------+ + + + | HCT, | 40.3 | 35 - 45 | EXTERNAL | | | External | | | LAB | | + +-------+ + + + | PLT, | 195 | 140 - 440 | EXTERNAL | | | External | | | LAB | | + +-------+ + + + | RBC, | 4.26 | 4 - 6 | EXTERNAL | | | External | | | LAB | | + +-------+ + + + | MCV, | 95 | 80 - 100 | EXTERNAL | | | External | | | LAB | | + +-------+ + + + | RDW, | 15 | 10.5 - 15 | EXTERNAL | | | External | | | LAB | | + +-------+ + + + + +---------+ + + | Performing | Address | City/State/Zipcode | Phone Number | | Organization | | | | + +---------+ + + | EXTERNAL LAB | | | | + +---------+ + + External Lab: eGFR (06/17/2017) + +--------+ + + + | Component | Value | Ref Range | Performed | Pathologist | | | | | At | Signature | + +--------+ + + + | eGFR, | 23 (A) | 60 | EXTERNAL | | | External | | | LAB | | + +--------+ + + + + + | Specimen | + + | Blood | + + + +---------+ + + | Performing | Address | City/State/Zipcode | Phone Number | | Organization | | | | + +---------+ + + | EXTERNAL LAB | | | | + +---------+ + + External Lab: Creatinine (06/17/2017) + + + + + + | Component | Value | Ref Range | Performed | Pathologist | | | | | At | Signature | + + + + + + | Creatinine, | 3.02 (A) | 0.6 - 1.3 | EXTERNAL | | | External | | | LAB | | + + + + + + + + | Specimen | + + | Blood | + + + +---------+ + + | Performing | Address | City/State/Zipcode | Phone Number | | Organization | | | | + +---------+ + + | EXTERNAL LAB | | | | + +---------+ + + documented in this encounter Visit Diagnoses Not on filedocumented in this encounter"
--- OUTSIDE RECORDS SUMMARY | ~2019-12-22 | XMS | Encounter Summary ---
Demographics + + + | Address | [address] [place] [address] | | | [place] [address] | + + + | Home Phone | | + + + | Preferred Language | Unknown | + + + | Marital Status | | + + + | Latter-Day Affiliation | CHR | + + + | Race | White | + + + | Ethnic Group | Not or | + + + Author + + + | Author | [facility] | + + + | Organization | [facility] | + + + | Address | Unknown | + + + | Phone | Unavailable | + + + Support + + +---------+ + | Name | Relationship | Address | Phone | + + +---------+ + | Misty Oneill | ECON | Unknown | | + + +---------+ + Care Team Providers + +------+ + | Care Manufacturing Quality Manager Name | Role | Phone | + [...] Davion Carballo | | | | | [facility], | [place], [place] | | | | | [place] [address] | [address] | | | | | [phone] | | | +--------+ + + + [...]
--- OUTSIDE RECORDS SUMMARY | ~2019-12-22 | XMS | Encounter Summary ---
Demographics + + + | Address | [address] | | | [place] [address] | + + + | Home Phone | | + + + | Preferred Language | Unknown | + + + | Marital Status | | + + + | Oriental Orthodox Affiliation | 1041 | + + + | Race | Unknown | + + + | Ethnic Group | Unknown | + + + Author + + + | Author | [facility] | | | and [place] | + + + | Organization | [facility] | | | and [place] | + + + | Address | Unknown | + + + | Phone | Unavailable | + + + Support + + + + + | Name | Relationship | Address | Phone | + + + + + | Ryan Oneill | ECON | [place], [place] | | | | | [address] | | + + + + + | Misty Boateng | ECON | [address] | | | | | [place], [place] | | | | | [address] | | + + + + + Care Team Providers + +------+ + | Care Crystallographer Name | Role | Phone | + +------+ + PCP | Unavailable | + +------+ + Encounter Details +--------+ + + + + | Date | Type | Department | Care Team | Description | +--------+ + + + + | 10/15/ | Abstract | [facility] | Christine Martinez W, | | | 2016 | | NEPHROLOGY [address] | | | | | [address] | [address] [place] | | | | | [place], [place] | [place] [address] | | | | | [address] | [phone] | | | | | [phone] | | | +--------+ + + + [...] | | | | | [place] [address] | | | | | | [phone] | | | | | | | | +--------+---------+ + + + documented as of this encounter Procedures + +--------+ + + + | Procedure Name | Priori | Date/Time | Associated Diagnosis | Comments | | | ty | | | | + +--------+ + + + | EXTERNAL LAB: ANIVAL | Routin | 10/14/2016 | | Results for this | | | e | | | procedure are in the | | | | | | results section. | + +--------+ + + + | EXTERNAL LAB: | Routin | 10/14/2016 | | Results for this | | GLUCOSE | e | | | procedure are in the | | | | | | results section. | + +--------+ + + + | EXTERNAL LAB: | Routin | 10/14/2016 | | Results for this | | ALBUMIN | e | | | procedure are in the | | | | | | results section. | + +--------+ + + + | EXTERNAL LAB: | Routin | 10/14/2016 | | Results for this | | PHOSPHORUS | e | | | procedure are in the | | | | | | results section. | + +--------+ + + + | EXTERNAL LAB: | Routin | 10/14/2016 | | Results for this | | CALCIUM | e | | | procedure are in the | | | | | | results section. | + +--------+ + + + | EXTERNAL LAB: CARBON | Routin | 10/14/2016 | | Results for this | | DIOXIDE | e | | | procedure are in the | | | | | | results section. | + +--------+ + + + | EXTERNAL LAB: | Routin | 10/14/2016 | | Results for this | | CHLORIDE | e | | | procedure are in the | | | | | | results section. | + +--------+ + + + | EXTERNAL LAB: | Routin | 10/14/2016 | | Results for this | | POTASSIUM | e | | | procedure are in the | | | | | | results section. | + +--------+ + + + | EXTERNAL LAB: SODIUM | Routin | 10/14/2016 | | Results for this | | | e | | | procedure are in the | | | | | | results section. | + +--------+ + + + | EXTERNAL LAB: | Routin | 10/14/2016 | | Results for this | | VITAMIN D, | e | | | procedure are in the | | 25-HYDROXY | | | | results section. | + +--------+ + + + | EXTERNAL LAB: | Routin | 10/14/2016 | | Results for this | | URINALYSIS | e | | | procedure are in the | | | | | | results section. | + +--------+ + + + | EXTERNAL LAB: KAYLA, | Routin | 10/14/2016 | | Results for this | | INTACT | e | | | procedure are in the | | | | | | results section. | + +--------+ + + + | EXTERNAL LAB: | Routin | 10/14/2016 | | Results for this | | PROTEIN/CREATININE | e | | | procedure are in the | | RATIO | | | | results section. | + +--------+ + + + | EXTERNAL LAB: EGFR | Routin | 10/14/2016 | | Results for this | | | e | | | procedure are in the | | | | | | results section. | + +--------+ + + + | EXTERNAL LAB: | Routin | 10/14/2016 | | Results for this | | CREATININE | e | | | procedure are in the | | | | | | results section. | + +--------+ + + + documented in this encounter Results External Lab: PTH, Intact (10/14/2016) + + + + + + | Component | Value | Ref Range | Performed | Pathologist | | | | | At | Signature | + + + + + + | PTH Intact, | 117.3 (A) | 15 - 65 | | | | External | | | | | + + + + + + + + | Specimen | + + | | + + External Lab: Protein/Creatinine Ratio (10/14/2016) + + + + + + | Component | Value | Ref Range | Performed | Pathologist | | | | | At | Signature | + + + + + + | Protein/Cre | 0.187 | 0.2 | | | | atinine [...] + + + + + + | Squamous | 0-2 | 0 - 2 /LPF | | | | Epithelial | | | | | | Cells, | | | | | | Urine | | | | | + + + + + + + + | Specimen | + + | | + + External Lab: ANIVAL (10/14/2016) + +--------+ + + + | Component [...] + +---------+ + + External Lab: Glucose (10/14/2016) + +---------+ + + + | Component | Value | Ref Range | Performed | Pathologist | | | | | At | Signature | + +---------+ + + + | Glucose, | 109 (A) | 70 - 100 | EXTERNAL | | | External | | | LAB | | + +---------+ + + + + +---------+ + + | Performing | Address | City/State/Zipcode | Phone Number | | Organization | | | | + +---------+ + + | EXTERNAL LAB | | | | + +---------+ + + External Lab: Albumin (10/14/2016) + +-------+ + + + | Component | Value | Ref Range | Performed | Pathologist | | | | | At | Signature | + +-------+ + + + | Albumin, | 4.7 | 3.5 - 5 | EXTERNAL | | | External | | | LAB | | + +-------+ + + + + +---------+ + + | Performing | Address | City/State/Zipcode | Phone Number | | Organization | | | | + +---------+ + + | EXTERNAL LAB | | | | + +---------+ + + External Lab: Phosphorus (10/14/2016) + +-------+ + + + | Component | Value | Ref Range | Performed | Pathologist | | | | | At | Signature | + +-------+ + + + | Phosphorus, | 2.7 | 2.5 - 5 | EXTERNAL | | | External | | | LAB | | + +-------+ + + + + +---------+ + + | Performing | Address | City/State/Zipcode | Phone Number | | Organization | | | | + +---------+ + + | EXTERNAL LAB | | | | + +---------+ + + External Lab: Calcium (10/14/2016) + +-------+ + + + | Component [...] +---------+ + + External Lab: Carbon Dioxide (10/14/2016) + +--------+ + + + | Component | Value | Ref Range | Performed | Pathologist | | | | | At | Signature | + +--------+ + + + | Carbon | 22 (A) | 23 - 32 | EXTERNAL | | | [...] + +---------+ + + External Lab: Chloride (10/14/2016) + +-------+ + + + | Component | Value | Ref Range | Performed | Pathologist | | | | | At | Signature | + +-------+ + + + | Chloride, | 102 | 100 - 110 | EXTERNAL | | | External | | | LAB | | + +-------+ + + + + +---------+ + + | Performing | Address | City/State/Zipcode | Phone Number | | Organization | | | | + +---------+ + + | EXTERNAL LAB | | | | + +---------+ + + External Lab: Potassium (10/14/2016) + +-------+ + + + | Component | Value | Ref Range | Performed | Pathologist | | | | | At | Signature | + +-------+ + + + | Potassium, | 4.1 | 3.5 - 5.1 | EXTERNAL | | | External | | | LAB | | + +-------+ + + + + +---------+ + + | Performing | Address | City/State/Zipcode | Phone Number | | Organization | | | | + +---------+ + + | EXTERNAL LAB | | | | + +---------+ + + External Lab: Sodium (10/14/2016) + +-------+ + + + | Component [...] + + External Lab: Vitamin D, 25-Hydroxy (10/14/2016) + +--------+ + + + | Component | Value | Ref Range | Performed | Pathologist | | | | | At | Signature | + +--------+ + + + | Vitamin D, | 26 (A) | 30 | EXTERNAL | | [...] + +---------+ + + External Lab: Urinalysis (10/14/2016) + + + + + + | [...] + + + | UA Ph, | 6 | | EXTERNAL | | | External | | | LAB | | + + + + + + | UA | 25 (A) | 0 | EXTERNAL | | | Proteins, | | | LAB | | | External | | | | | + + + + + + | UA RBC, | 2 | | EXTERNAL | | | External | | | LAB | | + + + + + + | UA Specific | 1.016 | 1.005 - 1.03 | EXTERNAL | | | [place], | | | LAB | | | [...] + +---------+ + + External Lab: eGFR (10/14/2016) + +--------+ + + + | Component | Value | Ref Range | Performed | Pathologist | | | | | At | Signature | + +--------+ + + + | eGFR, | 21 (A) | 60 | EXTERNAL | | [...] + +---------+ + + External Lab: Creatinine (10/14/2016) + + + + + + | Component | Value | Ref Range | Performed | Pathologist | | | | | At | Signature | + + + + + + | Creatinine, | 3.19 (A) | 0.6 - 1.3 | EXTERNAL [...]
--- OUTSIDE RECORDS SUMMARY | ~2019-12-22 | XMS | Encounter Summary ---
Demographics + + + | Address | [address] | | | [place] [address] | + + + | Home Phone [...] [place], [place] | | | | | [address] | | + + + + + | Misty Boateng | ECON | [address] | | | | | [place] | | | | | [address] | | + + + + + Care Team Providers + +------+ + | Care Stem Maker Name | Role | Phone | + +------+ + PCP | Unavailable | + +------+ + Reason for Visit Auth/Cert +--------+--------+ + + + + | Status | Reason | Specialty | Diagnoses / | Referred By | Referred To | | | | | Procedures | Contact | Contact | +--------+--------+ + + + + | | | | Diagnoses | | | | | | | NONE | | | | | | | GIVEN | | | | | | | Procedures | | | | | | | MI | | | | | | | COLONOSCOPY | | | | | | | FLX DX | | | | | | | W/COLLJ SPEC | | | | | | | WHEN PFRMD | | | | | | | MI | | | | | | | ESOPHAGOGAST | | | | | | | RODUODENOSCO | | | | | | | PY TRANSORAL | | | | | | | DIAGNOSTIC | | | | | | | EGD / | | | | | | | COLONOSCOPY | | | +--------+--------+ + + + + Encounter Details +--------+ + + + + | Date | Type | Department | Care Team | Description | +--------+ + + + + | 04/21/ | Anesthesia | [facility] | Mike Giang | | | 2016 | Event | [facility] | MD Lachelle [address] | | | | | [address] | [place] | | | | | [place] | [address] | | | | | [address] | [phone] | | | | | [phone] | | | +--------+ + + + + Anesthesia Record + + + + + | Procedure Name | Responsible | Anesthesia Start | Anesthesia Stop Time | | | Anesthesiologist | Time | | + + + + + | EGD / COLONOSCOPY | Mike Giang, | 11/08/15 1251 | 11/08/15 1322 | | (N/A ) | MD | | | + + + + + +----+---+ + + | Da | T | Event | Comment | | te | i | | | | | m | | | | | e | | | +----+---+ + + | 04 | 1 | | | | /2 | 2 | | | | 1/ | 3 | | | | 20 | 3 | | | | 16 | | | | +----+---+ + + | | 1 | An Checkout | Pre-use anesthesia machine/equipment checkout. | | | 2 | | | | | 3 | | | | | 3 | | | +----+---+ + + | | 1 | An Start | Room ready, anesthesia equipment checked, essential drugs & | | | 2 | | equipment available. Patient Identity checked, anesthesia plan | | | 5 | | explained and consent obtained. Patient transported to OR, | | | 1 | | Monitors applied. Reassessment prior to anesthesia | | | | | induction/procedure. | +----+---+ + + | | 1 | an oralia now | IN OR #ENDO 1 | | | 2 | | | | | 5 | | | | | 4 | | | +----+---+ + + | | 1 | AN | Per surgeon request | | | 2 | Antibiotic | | | | 5 | declined | | | | 5 | | | +----+---+ + + | | 1 | an oralia now | EGD | | | 2 | | | | | 5 | | | | | 8 | | | +----+---+ + + | | 1 | an oralia now | Colonoscopy | | | 3 | | | | | 0 | | | | | 2 | | | +----+---+ + + | | 1 | an oralia now | | | | 3 | | | | | 1 | | | | | 7 | | | +----+---+ + + | | 1 | An Stop | Patient handed off to recovery nurse. | | | 2 | | | | | 2 | | | +----+---+ + + +------+ | Meds | +------+ + +--------+ | Name | Total | + +--------+ | propofol | 400 mg | + +--------+ | propofol | 189 mg | + +--------+ | NS (Infusion) | 500 mL | + +--------+ + + | Name | + + | O2 Flow Rate (L/Min) | + + + + | No blood administrations on file. | + + +--------+ + + + | Type | Details | Placement | Removal | +--------+ + + + | Periph | 11/08/15; yes; no longer | 11/08/15 0000 by | 11/08/15 1405 by | | eral | indicated, catheter/device | Danya Jett, | Mandi Bhatti Morris, | | IV | intact, removed per | RN | RN | | | policy/procedure; 11/08/15; 1405 | | | +--------+ + + + documented in this encounter Social History + +-------+ +--------+ + | [...] | | | | | [address] [facility] | | | | | | [place] [address] | | | | | | [phone] | | | | | | | | +--------+---------+ + + + documented as of this encounter Visit Diagnoses Not on filedocumented in this encounter Administered Medications + +--------+ +-------+------+------+ | Medication Order | MAR | Action | Dose | Rate | Site | | | Action | Date | | | | + +--------+ +-------+------+------+ | propofol (DIPRIVAN) injection | Given | 11/08/19 | 50 mg | | | | PRN Starting [facility] 11/08/15 at | | 16 1:05 | | | | | 1258, Anesthesia Intra-op | | PM PDT | | | | + +--------+ +-------+------+------+ +-------+ +-------+---+---+ | Given | 11/08/19 | 50 mg | | | | | 16 1:03 | | | | | | PM PDT | | | | +-------+ +-------+---+---+ | Given | 11/08/19 | 50 mg | | | | | 16 1:02 | | | | | | PM PDT | | | | +-------+ +-------+---+---+ +---+---+ | | | +---+---+ + + + + + +---+ | propofol (DIPRIVAN) injection | Rate/Dos | 04/21/20 | 100 | 54 mL/hr | | | Intravenous, CONTINUOUS PRN, | e Change | 16 1:10 | mcg/kg/m | | | | Starting [facility] 11/08/15 at 1258, | | PM PDT | in | | | | Anesthesia Intra-op | | | | | | + + + + + +---+ +---------+ + + +---+ | New Bag | 11/08/19 | 150 | 81 mL/hr | | | | 16 12:58 | mcg/kg/m | | | | | PM PDT | in | | | +---------+ + + +---+ +---+---+ | | | +---+---+ + +---------+ +---+---+---+ | sodium chloride 0.9% (NS) | New Bag | 11/08/19 | | | | | infusion Intravenous, CONTINUOUS | | 16 1:02 | | | | | PRN, Starting Tri 11/08/15 at | | PM PDT | | | | | 1254, Anesthesia Intra-op | | | | | | + +---------+ +---+---+---+ +---------+ +---+---+---+ | New Bag | 11/08/19 | | | | | | 16 12:54 | | | | | | PM PDT | | | | +---------+ +---+---+---+ +---+---+ | | | +---+---+ documented in this encounter"
--- OUTSIDE RECORDS SUMMARY | ~2019-12-22 | XMS | Encounter Summary ---
Demographics + + + | Address | [address] | | | [place] [address] | + + + | Home Phone | | + + + | Preferred Language | Unknown | + + + | Marital Status | | + + + | Buddhist Affiliation | 1041 | + + + [...] [place], [place] | | | | | [address] | | + + + + + | Misty Boateng | ECON | [address] | | | | | [place] | | | | | [address] | | + + + + + Care Team Providers + +------+ + | Care Cigarette Vendor Name | Role | Phone | + [...] + + + + | 08/25/ | Telephone | [facility] | [place] W, | Blood Pressure | | 2019 | | NEPHROLOGY [address] | MD [address] | | | | | [address] | [address] [facility] | | | | | [place], [place] | [place] [address] | | | | | [address] | [phone] | | | | | [phone] | | | +--------+ + + + [...] | | | | | [place] [address] | | | | | | [phone] | | | | | | | | +--------+---------+ + + + documented as of this encounter Visit Diagnoses Not on filedocumented in this encounter"
--- OUTSIDE RECORDS SUMMARY | ~2019-12-22 | XMS | Encounter Summary ---
Demographics + + + | Address | [address] [place] [address] | | | [place] [address] | + + + | Home Phone | | + + + | Preferred Language | Unknown | + + + | Marital Status | | + + + | Congregational Affiliation | CHR | + + + | Race | White | + + + | Ethnic Group | Not or | + + + Author + + + | Author | [facility] | + + + | Organization | [facility] | + + + | Address | Unknown | + + + | Phone | Unavailable | + + + Support + + +---------+ + | Name | Relationship | Address | Phone | + + +---------+ + | Misty Oneill | ECON | Unknown | | + + +---------+ + Care Team Providers + +------+ + | Care Services Tech Name | Role | Phone | + +------+ + | Hai Holman MD | PCP | | + +------+ + Reason for Visit + + + | Reason | Comments | + + + | Tx Recommendation | Neuro consult | | Tracking | | + + + Encounter Details +--------+ + + + + | Date | Type | Department | Care Team | Description | +--------+ + + + + | 02/13/ | Telephone | Clinical | Thi Aden, | Tx Recommendation | | 2016 | | Transplant Services | RN [address] | Tracking (Neuro | | | | [address] | [address] | consult) | | | | Kait Barrios [place], | [place], [place] | | | | | [place] [address] | [address] | | | | | [phone] | | | +--------+ + + + [...]
--- OUTSIDE RECORDS SUMMARY | ~2019-12-22 | XMS | Encounter Summary ---
Demographics + + + | Address | [address] [place] [address] | | | [place] [address] | + + + | Home Phone | | + + + | Preferred Language | Unknown | + + + | Marital Status | | + + + | Druze Affiliation | CHR | + + + [...] Team Providers + +------+ + | Care Cleaning Matron Name | Role | Phone | + [...] | | | Surgery Services at | [place], | | | | | [facility] [address] | [place] [address] | | | | | [place] Mailcode: | [phone] | | | | | [facility] | | | | | | and Healing, | | | | | | [address] | | | | | | [place], [place] | | | | | | [address] | | | | | | [phone] | | | +--------+ + + + [...]
--- OUTSIDE RECORDS SUMMARY | ~2019-12-22 | XMS | Encounter Summary ---
Demographics + + + | Address | [address] | | | [place] [address] | + + + | Home Phone | | + + + | Preferred Language | Unknown | + + + | Marital Status | | + + + | Worship Affiliation | 1041 | + + + [...] [place], [place] | | | | | [address] | | + + + + + | Misty Boateng | ECON | [address] | | | | | [place] | | | | | [address] | | + + + + + Care Team Providers + +------+ + | Care Clinic Scheduler Name | Role | Phone | + +------+ + | Jt Perkins MD | PCP | | + +------+ + Encounter Details +--------+ + + + + | Date | Type | Department | Care Team | Description | +--------+ + + + + | 05/31/ | Abstract | [facility] [place] | [place] W, | | | 2017 | | NEPHROLOGY [address] | [address] | | | | | [address] | [address] [place] | | | | | [place], [place] | [place] [address] | | | | | [address] | [phone] | | | | | [phone] | | | +--------+ + + + [...] | | 2020 | Visit | | [address] | | | | | | [address] [place] | | | | | | [place] [address] | | | | | | [phone] | | | | | | | | +--------+---------+ + + + documented as of this encounter Procedures + +--------+ + + + | Procedure Name | Priori | Date/Time | Associated Diagnosis | Comments | | | ty | | | | + +--------+ + + + | EXTERNAL LAB: | Routin | 05/27/2018 | | Results for this | | PROTEIN/CREATININE | e | | | procedure are in the | | RATIO | | | | results section. | + +--------+ + + + documented in this encounter Results External Lab: Protein/Creatinine Ratio (05/27/2018) + + + + + + | Component | Value | Ref Range | Performed | Pathologist | | | | | At | Signature | + + + + + + | Protein/Cre | 0.247 (A) | 0.0 - 0.2 mg/mg | | | | atinine | | | | | | Ratio, | | | | | | External | | | | | + + + + + + + + | Specimen | + + | | + + documented in this encounter Visit Diagnoses Not on filedocumented in this encounter"
--- OUTSIDE RECORDS SUMMARY | ~2019-12-22 | XMS | Encounter Summary ---
Demographics + + + | Address | [address] [place] [address] | | | [place] [address] | + + + | Home Phone | | + + + | Preferred Language | Unknown | + + + | Marital Status | | + + + | Jew Affiliation | CHR | + + + | Race | White | + + + | Ethnic Group | Not or | + + + Author + + + | Author | [facility] | + + + | Organization | [facility] | + + + | Address | Unknown | + + + | Phone | Unavailable | + + + Support + + +---------+ + | Name | Relationship | Address | Phone | + + +---------+ + | Misty Oneill | ECON | Unknown | | + + +---------+ + Care Team Providers + +------+ + | Care Merchandise Examiner Name | Role | Phone | + +------+ + | Jt Perkins MD | PCP | | + +------+ + Encounter Details +--------+ + + + + | Date | Type | Department | Care Team | Description | +--------+ + + + + | 12/07/ | MyChart | Otolaryngology | Tim Skinner MD | Good pathology | | 2020 | Encounter | Head and Neck | [address] | result | | | | Surgery Services at | [place], | | | | | [place] [address] | [place] [address] | | | | | [place] Mailcode: | [phone] | | | | | [facility] | | | | | | and Healing, | | | | | | [address] | | | | | | [place], [place] | | | | | | [address] | | | | | | [phone] | | | +--------+ + + + [...]
--- OUTSIDE RECORDS SUMMARY | ~2019-12-22 | XMS | Encounter Summary ---
Demographics + + + | Address | [address] | | | [place] [address] | + + + | Home Phone | | + + + | Preferred Language | Unknown | + + + | Marital Status | | + + + | Hoahaoism Affiliation | 1041 | + + + | Race | Unknown | + + + | Ethnic Group | Unknown | + + + Author + + + | Author | [facility] | | | and [place] | + + + | Organization | [facility] | | | and [place] | + + + | Address | Unknown | + + + | Phone | Unavailable | + + + Support + + + + + | Name | Relationship | Address | Phone | + + + + + | Ryan Oneill | ECON | [place], [place] | | | | | [address] | | + + + + + | Misty Boateng | ECON | [address] | | | | | [place] | | | | | [address] | | + + + + + Care Team Providers + +------+ + | Care Overlock Elastic Attacher Name | Role | Phone | + +------+ + PCP | Unavailable | + +------+ + Reason for Referral Diagnostic/Screening (Routine) +--------+--------+ + + + + | Status | Reason | Specialty | Diagnoses / | Referred By | Referred To | | | | | Procedures | Contact | Contact | +--------+--------+ + + + + | Closed | | Radiology | Diagnoses | [place], | [address] | | | | | RAEGAN (acute | [place], | [address] | | | | | kidney | MD [address] | [place], | | | | | injury) | [address] | [place] [address] | | | | | (HCC) | [address] [place] | Phone: | | | | | Procedures | [place], [place] | [phone] | | | | | CT Guided | [address] | Fax: | | | | | Biopsy Renal | Phone: | [phone] | | | | | CO BIOPSY | [phone] | | | | | | OF | Fax: | | | | | | KIDNEY,PERCU | [phone] | | | | | | TANEOUS CO | | | | | | | CT GUIDANCE | | | | | | | NEEDLE | | | | | | | PLACEMENT | | | +--------+--------+ + + + + Reason for Visit Auth/Cert +--------+--------+ + [...] | +--------+ + + + + | 06/11/ | [facility] | [facility] | Jose Juan Yanes MD | RAEGAN (acute kidney | | 2014 | Encounter | MED CTR OR PRE OP | [address] | injury) ([facility]) | | | | [address] [place] | [place] | | | | | [place] [address] | [address] | | | | | [phone] | [phone] | | | | | | | [...] Rozina Baird, peritoneal dialys is nurse, at [phone]. documented in this encounter Medications at Time [...] [facility] | | | | | | [place] [address] | | | | | | [phone] | | | | | | | [...] mL/min/1.73m2 | [facility] | | | DJ[facility]OUTIAN | RATE,ESTIMATED | | MEDICAL | | | | mL/min/1.04o8Efcv than | | CENTER - | | [...] + | [facility] | [address] | [place] | [phone] | | [facility] | | [address] | | | - LABORATORY | | [...] [address] | [place] | [phone] | | [facility] | | [address] | | | - LABORATORY | | [...] COMPARISON: None. PROTOCOL: After explaining the | [facility] | | risks and benefits of the [...] | + + + + + | [facility] | [address] | [place] | [phone] | | [facility] | | [address] | | | - IMAGING | | [...] | | | Anticoagulation Range: | | [facility] | | | | 2.0 - [...] + | [address] | [address] | [place] | [phone] | | [facility] | | [address] | | | - LABORATORY | | | | + + + + + documented in this encounter Visit Diagnoses + + | Diagnosis | + + | RAEGAN (acute kidney injury) (HCC) Acute kidney failure, unspecified | + + documented in this encounter Administered Medications + +--------+ +--------+------+------+ | Medication Order | MAR | Action | Dose | Rate | Site | | | Action | Date | | | | + +--------+ +--------+------+------+ | fentaNYL injection PRN, | Given | 06/11/20 | 50 mcg | | | | Starting 06/11/15 at 1400 | | 15 2:00 | [...] PM PST | | | | | 06/11/15 at 1300, OK to use | | | | | | | implantable port., Pre-op | | | | | | + +---------+ +---+ +---+ +---+---+ | | | +---+---+ documented in this encounter"
--- OUTSIDE RECORDS SUMMARY | ~2019-12-22 | XMS | Encounter Summary ---
Demographics + + + | Address | [address] | | | [place] [address] | + + + | Home Phone | | + + + | Preferred Language | Unknown | + + + | Marital Status | | + + + | Voodoo Affiliation | 1041 | + + + | Race | Unknown | + + + | Ethnic Group | Unknown | + + + Author + + + | Author | [facility] | | | and [place] | + + + | Organization | [facility] | | | and [place] | + + + | Address | Unknown | + + + | Phone | Unavailable | + + + Support + + + + + | Name | Relationship | Address | Phone | + + + + + | Ryan Oneill | ECON | [place], [place] | | | | | [address] | | + + + + + | Misty Boateng | ECON | [address] | | | | | [place], [place] | | | | | [address] | | + + + + + Care Team Providers + +------+ + | Care Die Attacher Name | Role | Phone | + +------+ + PCP | Unavailable | + +------+ + Encounter Details +--------+ + + + + | Date | Type | Department | Care Team | Description | +--------+ + + + + | 03/31/ | Abstract | [facility] [place] | [place] W, | | | 2016 | | NEPHROLOGY [address] | [address] | | | | | [address] | [address] [place] | | | | | [place], [place] | [place] [address] | | | | | [address] | [phone] | | | | | [phone] | | | +--------+ + + + [...] this encounter Progress Notes Mandy Negrete - 03/31/2017 2:31 PM PDTOutside record: Progress note from Thi judd RN, [facility] Transplant Support Desk. Dos; 03/31/17. Sent to scan. documented in this encounter Plan of Treatment [...] | | | | | [place] [address] | | | | | | [phone] | | | | | | | | +--------+---------+ + + + documented as of this encounter Visit Diagnoses Not on filedocumented in this encounter"
--- OUTSIDE RECORDS SUMMARY | ~2019-12-22 | XMS | Encounter Summary ---
Demographics + + + | Address | [address] | | | [place] [address] | + + + | Home Phone | | + + + | Preferred Language | Unknown | + + + | Marital Status | | + + + | Bahai Affiliation | 1041 | + + + | Race | Unknown | + + + | Ethnic Group | Unknown | + + + Author + + + | Author | [facility] | | | and [place] | + + + | Organization | [facility] | | | and [place] | + + + | Address | Unknown | + + + | Phone | Unavailable | + + + Support + + + + + | Name | Relationship | Address | Phone | + + + + + | Ryan Oneill | ECON | [place], [place] | | | | | [address] | | + + + + + | Misty Boateng | ECON | [address] | | | | | [place] | | | | | [address] | | + + + + + Care Team Providers + +------+ + | Care Ceo And Founder Name | Role | Phone | + [...] | NEPHROLOGY [address] | [address] | | | | | [address] | [address] [place] | | | | | [place], [place] | [place] [address] | | | | | [address] | [phone] | | | | | [phone] | | | +--------+ + + + [...] 2020 | Visit | | [address] | | | | | | [address] [place] | | | | | | [place] [address] | | | | | | [phone] | | | | | | | [...]
--- OUTSIDE RECORDS SUMMARY | ~2019-12-22 | XMS | Encounter Summary ---
Demographics + + + | Address | [address] | | | [place] [address] | + + + | Home Phone | | + + + | Preferred Language | Unknown | + + + | Marital Status | | + + + | Jainism Affiliation | 1041 | + + + | Race | Unknown | + + + | Ethnic Group | Unknown | + + + Author + + + | Author | [facility] | | | and [place] | + + + | Organization | [facility] | | | and [place] | + + + | Address | Unknown | + + + | Phone | Unavailable | + + + Support + + + + + | Name | Relationship | Address | Phone | + + + + + | Ryan Oneill | ECON | [place], [place] | | | | | [address] | | + + + + + | Misty Boateng | ECON | [address] | | | | | [place], [place] | | | | | [address] | | + + + + + Care Team Providers + +------+ + | Care Healthcare Administration Intern Name | Role | Phone | + +------+ + PCP | Unavailable | + +------+ + Encounter Details +--------+ + + + + | Date | Type | Department | Care Team | Description | +--------+ + + + + | 07/06/ | Documentati | [facility] [place] | [place] W, | | | 2014 | on | NEPHROLOGY [address] | [address] | | | | | [address] | [address] [place] | | | | | [place], [place] | [place] [address] | | | | | [address] | [phone] | | | | | [phone] | | | +--------+ + + + [...] this encounter Progress Notes Mandy Negrete - 07/06/2015 11:32 AM PSTManually faxed signed release of information to [facility]Vitaliy Velasquez MD (fx: [phone]) on 07/06/15 requesting most recent progress note. documented in this encounter Plan of Treatment +--------+---------+ + + + | Date | Type | Specialty | Care Team | Description | +--------+---------+ + + + | 03/20/ | Office | Nephrology | [place], | | | 2020 | Visit | | MD [address] | | | | | | [address] [place] | | | | | | [place] [address] | | | | | | [phone] | | | | | | | | +--------+---------+ + + + documented as of this encounter Visit Diagnoses Not on filedocumented in this encounter"
--- OUTSIDE RECORDS SUMMARY | ~2019-12-22 | XMS | Encounter Summary ---
Demographics + + + | Address | [address] [place] [address] | | | [place] [address] | + + + | Home Phone | | + + + | Preferred Language | Unknown | + + + | Marital Status | | + + + | Anglican Affiliation | CHR | + + + | Race | White | + + + | Ethnic Group | Not or | + + + Author + + + | Author | [facility] | + + + | Organization | [facility] | + + + | Address | Unknown | + + + | Phone | Unavailable | + + + Support + + +---------+ + | Name | Relationship | Address | Phone | + + +---------+ + | Misty Oneill | ECON | Unknown | | + + +---------+ + Care Team Providers + +------+ + | Care Sessions Clerk Name | Role | Phone | + +------+ + | Hai Holman MD | PCP | | + +------+ + Reason for Visit + + + | Reason | Comments | + + + | Financial Review | | + + + Encounter Details +--------+ + + + + | Date | Type | Department | Care Team | Description | +--------+ + + + + | 07/10/ | Documentati | Clinical | Russ Garcia | Financial Review | | 2014 | on | Transplant Services | [address] | | | | | [address] | [place], | | | | | [place], | [place] [address] | | | | | [place] [address] | | | | | | [phone] | | | +--------+ + + + [...]
--- OUTSIDE RECORDS SUMMARY | ~2019-12-22 | XMS | Encounter Summary ---
Demographics + + + | Address | [address] [place] [address] | | | [place] [address] | + + + | Home Phone | | + + + | Preferred Language | Unknown | + + + | Marital Status | | + + + | Christianity Affiliation | CHR | + + + | Race | White | + + + | Ethnic Group | Not or | + + + Author + + + | Author | [facility] | + + + | Organization | [facility] | + + + | Address | Unknown | + + + | Phone | Unavailable | + + + Support + + +---------+ + | Name | Relationship | Address | Phone | + + +---------+ + | Misty Oneill | ECON | Unknown | | + + +---------+ + Care Team Providers + +------+ + | Care Legal Research Analyst Name | Role | Phone | + +------+ + | Hai Holman MD | PCP | | + +------+ + Reason for Visit + + + | Reason | Comments | + + + | Nutrition Eval for | | | Transplant | | + + + Consultation (Routine) +--------+--------+ + + + + | Status | Reason | Specialty | Diagnoses / | Referred By | Referred To | | | | | Procedures | Contact | Contact | +--------+--------+ + + + + | Closed | | Kidney | Diagnoses | Abby Martinez, | | | | Transplant | Chronic | MD Christine | MD Santos | | | | | kidney | [place] | [address] | | | | | disease, | [place] | [address] Carballo | | | | | stage 4 | Nephrology | [place], | | | | | (severe) | [address] | [place] | | | | | Illness, | [address] | [address] | | | | | unspecified | [address] | Phone: | | | | | | [place], | [phone] | | | | | | [place] [address] | Fax: | | | | | | Phone: | [phone] | | | | | | [phone] | | | | | | | Fax: | | | | | | | [phone] | | +--------+--------+ + + + + Encounter Details +--------+---------+ + + + | Date | Type | Department | Care Team | Description | +--------+---------+ + + + | 09/05/ | Office | Food and Nutrition | Danielle Wilkerson RD | Chronic kidney | | 2015 | Visit | Services at [facility] | [address] | disease, stage IV | | | | [address] | [facility] | (severe) (HCC) | | | | [address] | [place] [address] | (Primary Dx) | | | | [address], [address] | [phone] | | | | | [place], [place] | | | | | | [address] | | | | | | [phone] | | | +--------+---------+ + + + Social History + + [...] + + + | Blood Pressure | - | - | | + [...] + + + + | Weight | 90.9 kg (200 lb 6.4 | 09/05/2015 12:17 PM | | | | oz) | PST | | + + + + + | Height | 182.9 cm (6' 0.01") | 09/05/2015 12:17 PM | | | | | PST | | + + + + + | Body Mass Index | 27.17 | 09/05/2015 12:17 PM | | | | | PST | | + + + + + documented in this encounter Progress Notes Danielle Wilkerson, RD - 09/05/2015 12:25 PM PST Nutrition Clinic - Renal Transplant Evaluation Assessment: Pt seen for 60 min w/ Brittney, his . Seema Oneill is a 44 y.o. male with CKD Stage 4 secondary to interstitial nephritis. CLIENT HX: Significant Medical/Surgical History: Chron's disease (2008) . Dialysis: not yet. UOP still urinating; doesn't know how much. Family Hx: Diabetes(cousin) and Coronary Artery Disease (paternal grandfather). Prescription meds: Vit D 5000 units/d, Lexapro, Carvedilol, Protonix, Humira Alternative meds / Herbal Supplements: not any more since April,. Was on L carnitine , alpha liproic acid, Vit D and MVI and ocassional supplement of "greens". Told prior to tr ansplant evaluation to stop all herbal supplement and he did. Vitamins/Minerals: Vitamin D. OTC Meds: migraine Excedrine but not taking now. FOOD AND NUTRITION HX: Current diet prescription per patient is regular. Has been told to limit salt but only benavides its at table. Still uses in cooking and high frequency at fast food restaurants. Lives w/ and her daughter. manages food preparation. Eats out occasionally. Bu t from April to July it was daily and mostly fast foods. Appetite is excessive when on prednisone and now its fair to good and his energy level is l ow, naps twice per day. Exercise: none. Nutritional Supplements none. ANTHROPOMETRICS: Ht 1.829 m (6' 0.01") | Wt 90.9 kg (200 lb 6.4 oz) | BMI 27.17 kg/(m^2) Waist Ci rcumference 103.3 cm Waist/Ht = 0.5 Usual weight: 175-180 lbs (81.8 kg) Max adult weight: 215 lbs. After prednisone Wt Readings from Last 4 Encounters: 09/05/15 90.9 kg (200 lb 6.4 oz) 03/12/09 87.68 kg (193 lb 4.8 oz) BIOCHEMISTRIES, OTHER TESTS: Lab Results Lab Test Name Results Date/Time NA 140 09/05/15 K 4.1 09/05/15 CL 105 09/05/15 BICARB 27 09/05/15 BUN 44 09/05/15 CR 3.94 09/05/15 GLU 95 09/05/15 CA 8.5 09/05/15 MG 2.2 09/05/15 PO4 4.0 09/05/15 CHOL 200 09/05/15 HCT 37.2 09/05/15 MCV 90.5 09/05/15 ALB 4.0 09/05/15 U.Pro neg U Glu neg NUTRITION PHYSICAL EXAM: GI symptoms: nausea, heartburn and diarrhea which he attributes to Chrohn's. Appearance, other findings: Well appearing man. No LE edema or muscle wasting. Hand sanitary aide strength (HGS): L (non dominant but claims he has extreme weakness in his right a rm) 58.8 kg (acceptable) Frailty Index: 1. 0 to 2 = no risk; 3 = sub-frail; 4 to 5 = frail (walking speed not measur ed) Nutrition Diagnosis. Overweight. Inadequate water soluble vitamin intake due to pt food choices, as shown by diet history.. Assessment of post transplant outcomes: Weight Gain -- moderate risk due previous wt gain when on prednisone and decreased activity due to joint pain ; Diabetes -- low risk Discussed post-kidney transplant nutrition in general, joslyn adequate heart healthy eating an d food safety Intervention/ Plan: Recommendations: Renal-specific MVI Avoid all herbal and alternative medications Low to moderate risk for Renal transplant from a nutrition perspective. documented in this enco unter Plan of Treatment Not on filedocumented as of this encounter Procedures + +--------+ + + + | Procedure Name | Priori | Date/Time | Associated Diagnosis | Comments | | | ty | | | | + +--------+ + + + | [place] MNT INITIAL | Routin | 09/06/2015 | Chronic kidney | | | ASSESSMNT X15MIN | e | 9:13 AM | disease, stage IV | | | | | PST | (severe) (HCC) | | + +--------+ + + + documented in this encounter Visit Diagnoses + + | Diagnosis | + + | Chronic kidney disease, stage IV (severe) (HCC) - Primary Chronic kidney disease, | | Stage IV (severe) | + + documented in this encounter
--- OUTSIDE RECORDS SUMMARY | ~2019-12-22 | XMS | Encounter Summary ---
Demographics + + + | Address | [address] [place] [address] | | | [place] [address] | + + + | Home Phone | | + + + | Preferred Language | Unknown | + + + | Marital Status | | + + + | Methodist Affiliation | CHR | + + + | Race | White | + + + | Ethnic Group | Not or | + + + Author + + + | Author | [facility] | + + + | Organization | [facility] | + + + | Address | Unknown | + + + | Phone | Unavailable | + + + Support + + +---------+ + | Name | Relationship | Address | Phone | + + +---------+ + | Misty Oneill | ECON | Unknown | | + + +---------+ + Care Team Providers + +------+ + | Care Patient Relations Director Name | Role | Phone | + +------+ + | Jt Perkins MD | PCP | | + +------+ + Encounter Details +--------+ + + + + | Date | Type | Department | Care Team | Description | +--------+ + + + + | 08/18/ | Lab | LAB IMMUNOGENETIC | | | | 2016 | Requisition | AND TRANSPLANT LAB | | | | | | [address] | | | | | | [place], | | | | | | [place] [address] | | | +--------+ + + + [...] | + +--------+ + + + | LIT FLOW HLA AB PRA | Routin | 08/18/2016 | | | | SCREEN I/II KE | e | 1:32 PM | | | | | | PST | | | + +--------+ + + + documented in this encounter Results LIT FLOW HLA AB PRA SCREEN I/II KE (08/18/2016 1:32 PM PST) + + | Specimen | + + | Blood - Blood | | (substance) | + + + + + + + | Performing | Address | City/State/Zipcode | Phone Number | | Organization | | | | + + + + + | [facility] | [address] | [place] [address] | | | IMMUNOGENETICS/TRANS | [address] | | | | [facility] | | | | + + + + + documented in this encounter Visit Diagnoses Not on filedocumented in this encounter"
--- OUTSIDE RECORDS SUMMARY | ~2019-12-22 | XMS | Encounter Summary ---
Demographics + + + | Address | [address] | | | [place] [address] | + + + | Home Phone | | + + + | Preferred Language | Unknown | + + + | Marital Status | | + + + | Advent Affiliation | 1041 | + + + | Race | Unknown | + + + | Ethnic Group | Unknown | + + + Author + + + | Author | [facility] | | | and [place] | + + + | Organization | [facility] | | | and [place] | + + + | Address | Unknown | + + + | Phone | Unavailable | + + + Support + + + + + | Name | Relationship | Address | Phone | + + + + + | Ryan Oneill | ECON | [place], [place] | | | | | [address] | | + + + + + | Misty Boateng | ECON | [address] | | | | | [place], [place] | | | | | [address] | | + + + + + Care Team Providers + +------+ + | Care Living Coach Name | Role | Phone | + +------+ + PCP | Unavailable | + +------+ + Encounter Details +--------+ + + + + | Date | Type | Department | Care Team | Description | +--------+ + + + + | 06/06/ | Abstract | [facility] [place] | Christine Martinez W, | | | 2014 | | NEPHROLOGY [address] | | | | | [address] | [address] [place] | | | | | [place], [place] | [place] [address] | | | | | [address] | [phone] | | | | | [phone] | | | +--------+ + + + [...] | | | | | [place] [address] | | | | | | [phone] | | | | | | | | +--------+---------+ + + + documented as of this encounter Procedures + +--------+ + + + | Procedure Name | Priori | Date/Time | Associated Diagnosis | Comments | | | ty | | | | + +--------+ + + + | EXTERNAL LAB: ANIVAL | Routin | 06/06/2015 | | Results for this | | | e | | | procedure are in the | | | | | | results section. | + +--------+ + + + | EXTERNAL LAB: | Routin | 06/06/2015 | | Results for this | | GLUCOSE | e | | | procedure are in the | | | | | | results section. | + +--------+ + + + | EXTERNAL LAB: | Routin | 06/06/2015 | | Results for this | | ALBUMIN | e | | | procedure are in the | | | | | | results section. | + +--------+ + + + | EXTERNAL LAB: | Routin | 06/06/2015 | | Results for this | | PHOSPHORUS | e | | | procedure are in the | | | | | | results section. | + +--------+ + + + | EXTERNAL LAB: | Routin | 06/06/2015 | | Results for this | | CALCIUM | e | | | procedure are in the | | | | | | results section. | + +--------+ + + + | EXTERNAL LAB: CARBON | Routin | 06/06/2015 | | Results for this | | DIOXIDE | e | | | procedure are in the | | | | | | results section. | + +--------+ + + + | EXTERNAL LAB: | Routin | 06/06/2015 | | Results for this | | CHLORIDE | e | | | procedure are in the | | | | | | results section. | + +--------+ + + + | EXTERNAL LAB: | Routin | 06/06/2015 | | Results for this | | POTASSIUM | e | | | procedure are in the | | | | | | results section. | + +--------+ + + + | EXTERNAL LAB: SODIUM | Routin | 06/06/2015 | | Results for this | | | e | | | procedure are in the | | | | | | results section. | + +--------+ + + + | EXTERNAL LAB: EGFR | Routin | 06/06/2015 | | Results for this | | | e | | | procedure are in the | | | | | | results section. | + +--------+ + + + | EXTERNAL LAB: | Routin | 06/06/2015 | | Results for this | | CREATININE | e | | | procedure are in the | | | | | | results section. | + +--------+ + + + documented in this encounter Results External Lab: BUN (06/06/2015) + +--------+ + + + | Component | Value | Ref Range | Performed | Pathologist | | | | | At | Signature | + +--------+ + + + | ANIVAL, | 40 (A) | 6 - 23 | EXTERNAL | | | External | | | LAB | | + +--------+ + + + + + | Resulting Agency Comment | + + | [facility] | + + + +---------+ + + | Performing | Address | City/State/Zipcode | Phone Number | | Organization | | | | + +---------+ + + | EXTERNAL LAB | | | | + +---------+ + + External Lab: Glucose (06/06/2015) + +--------+ + + + | Component | Value | Ref Range | Performed | Pathologist | | | | | At | Signature | + +--------+ + + + | Glucose, | 67 (A) | 70 - 100 | EXTERNAL | | | External | | | LAB | | + +--------+ + + + + + | Resulting Agency Comment | + + | [facility] | + + + +---------+ + + | Performing | Address | City/State/Zipcode | Phone Number | | Organization | | | | + +---------+ + + | EXTERNAL LAB | | | | + +---------+ + + External Lab: Albumin (06/06/2015) + +-------+ + + + | Component | Value | Ref Range | Performed | Pathologist | | | | | At | Signature | + +-------+ + + + | Albumin, | 4.4 | 3.5 - 5 | EXTERNAL | | | External | | | LAB | | + +-------+ + + + + + | Resulting Agency Comment | + + | [facility] | + + + +---------+ + + | Performing | Address | City/State/Zipcode | Phone Number | | Organization | | | | + +---------+ + + | EXTERNAL LAB | | | | + +---------+ + + External Lab: Phosphorus (06/06/2015) + +-------+ + + + | Component | Value | Ref Range | Performed | Pathologist | | | | | At | Signature | + +-------+ + + + | Phosphorus, | 3.2 | 2.5 - 5 | EXTERNAL | | | External | | | LAB | | + +-------+ + + + + + | Resulting Agency Comment | + + | [facility] | + + + +---------+ + + | Performing | Address | City/State/Zipcode | Phone Number | | Organization | | | | + +---------+ + + | EXTERNAL LAB | | | | + +---------+ + + External Lab: Calcium (06/06/2015) + +-------+ + + + | Component | Value | Ref Range | Performed | Pathologist | | | | | At | Signature | + +-------+ + + + | Calcium, | 9.2 | 8.4 - 10.2 | EXTERNAL | | | External | | | LAB | | + +-------+ + + + + + | Resulting Agency Comment | + + | [facility] | + + + +---------+ + + | Performing | Address | City/State/Zipcode | Phone Number | | Organization | | | | + +---------+ + + | EXTERNAL LAB | | | | + +---------+ + + External Lab: Carbon Dioxide (06/06/2015) + +-------+ + + + | Component | Value | Ref Range | Performed | Pathologist | | | | | At | Signature | + +-------+ + + + | Carbon | 24 | 19 - 31 | EXTERNAL | | | Dioxide, | | | LAB | | | External | | | | | + +-------+ + + + + + | Resulting Agency Comment | + + | [facility] | + + + +---------+ + + | Performing | Address | City/State/Zipcode | Phone Number | | Organization | | | | + +---------+ + + | EXTERNAL LAB | | | | + +---------+ + + External Lab: Chloride (06/06/2015) + +-------+ + + + | Component | Value | Ref Range | Performed | Pathologist | | | | | At | Signature | + +-------+ + + + | Chloride, | 101 | 95 - 112 | EXTERNAL | | | External | | | LAB | | + +-------+ + + + + + | Resulting Agency Comment | + + | [facility] | + + + +---------+ + + | Performing | Address | City/State/Zipcode | Phone Number | | Organization | | | | + +---------+ + + | EXTERNAL LAB | | | | + +---------+ + + External Lab: Potassium (06/06/2015) + +-------+ + + + | Component | Value | Ref Range | Performed | Pathologist | | | | | At | Signature | + +-------+ + + + | Potassium, | 4.4 | 3.6 - 5.1 | EXTERNAL | | | External | | | LAB | | + +-------+ + + + + + | Resulting Agency Comment | + + | [facility] | + + + +---------+ + + | Performing | Address | City/State/Zipcode | Phone Number | | Organization | | | | + +---------+ + + | EXTERNAL LAB | | | | + +---------+ + + External Lab: Sodium (06/06/2015) + +-------+ + + + | Component | Value | Ref Range | Performed | Pathologist | | | | | At | Signature | + +-------+ + + + | Sodium, | 136 | 132 - 143 | EXTERNAL | | | External | | | LAB | | + +-------+ + + + + + | Resulting Agency Comment | + + | [facility] | + + + +---------+ + + | Performing | Address | City/State/Zipcode | Phone Number | | Organization | | | | + +---------+ + + | EXTERNAL LAB | | | | + +---------+ + + External Lab: eGFR (06/06/2015) + +-------+ + + + | Component | Value | Ref Range | Performed | Pathologist | | | | | At | Signature | + +-------+ + + + | eGFR, | 16 | | EXTERNAL | | | External | | | LAB | | + +-------+ + + + + + | Specimen | + + | Blood specimen | | (specimen) | + + + + | Resulting Agency Comment | + + | [facility] | + + + +---------+ + + | Performing | Address | City/State/Zipcode | Phone Number | | Organization | | | | + +---------+ + + | EXTERNAL LAB | | | | + +---------+ + + External Lab: Creatinine (06/06/2015) + + + + + + | Component | Value | Ref Range | Performed | Pathologist | | | | | At | Signature | + + + + + + | Creatinine, | 4.09 (A) | 0.6 - 1.35 | EXTERNAL | | | External | | | LAB | | + + + + + + + + | Specimen | + + | Blood specimen | | (specimen) | + + + + | Resulting Agency Comment | + + | [facility] | + + + +---------+ + + | Performing | Address | City/State/Zipcode | Phone Number | | Organization | | | | + +---------+ + + | EXTERNAL LAB | | | | + +---------+ + + documented in this encounter Visit Diagnoses Not on filedocumented in this encounter"
--- OUTSIDE RECORDS SUMMARY | ~2019-12-22 | XMS | Encounter Summary ---
Demographics + + + | Address | [address] | | | [place] [address] | + + + | Home Phone | | + + + | Preferred Language | Unknown | + + + | Marital Status | | + + + | Oriental Orthodox Affiliation | 1041 | + + + | Race | Unknown | + + + | Ethnic Group | Unknown | + + + Author + + + | Author | [facility] | | | and [place] | + + + | Organization | [facility] | | | and [place] | + + + | Address | Unknown | + + + | Phone | Unavailable | + + + Support + + + + + | Name | Relationship | Address | Phone | + + + + + | Ryan Oneill | ECON | [place], [place] | | | | | [address] | | + + + + + | Misty Boateng | ECON | [address] | | | | | [place], [place] | | | | | [address] | | + + + + + Care Team Providers + +------+ + | Care Ortho Rn Name | Role | Phone | + +------+ + PCP | Unavailable | + +------+ + Encounter Details +--------+ + + + + | Date | Type | Department | Care Team | Description | +--------+ + + + + | 06/21/ | Abstract | [facility] [place] | Christine Martinez W, | | | 2014 | | NEPHROLOGY [address] | | | | | [address] | [address] [place] | | | | | [place], [place] | [place] [address] | | | | | [address] | [phone] | | | | | [phone] | | | +--------+ + + + [...] | | | | | [place] [address] | | | | | | [phone] | | | | | | | | +--------+---------+ + + + documented as of this encounter Procedures + +--------+ + + + | Procedure Name | Priori | Date/Time | Associated Diagnosis | Comments | | | ty | | | | + +--------+ + + + | EXTERNAL LAB: ANIVAL | Routin | 06/21/2015 | | Results [...] | EXTERNAL LAB: CARBON | Routin | 06/21/2015 | | Results [...] | EXTERNAL LAB: SODIUM | Routin | 06/21/2015 | | Results for this | | | e | | | procedure are in the | | | | | | results section. | + +--------+ + + + | EXTERNAL LAB: EGFR | Routin | 06/21/2015 | | Results [...] documented in this encounter Results External Lab: ANVIAL (06/21/2015) + +--------+ + + + | Component | Value | Ref Range | Performed | Pathologist | | | | | At | Signature | + +--------+ + + + | BUN, | 46 (A) | 9 - 23 | EXTERNAL | | | [...] + +---------+ + + External Lab: Glucose (06/21/2015) + +-------+ + + + | Component | Value | Ref Range | Performed | Pathologist | | | | | At | Signature | + +-------+ + + + | Glucose, | 86 | 70 - 100 | EXTERNAL | [...] + +---------+ + + External Lab: Albumin (06/21/2015) + +-------+ + + + | Component | Value | Ref Range | Performed | Pathologist | | | | | At | Signature | + +-------+ + + + | Albumin, | 3.9 | 3.5 - 5 | EXTERNAL | [...] + +---------+ + + External Lab: Calcium (06/21/2015) + +-------+ + + + | Component | Value | Ref Range | Performed | Pathologist | | | | | At | Signature | + +-------+ + + + | Calcium, | 8.8 | 8.4 - 10.2 | EXTERNAL | [...] +---------+ + + External Lab: Carbon Dioxide (06/21/2015) + +-------+ + + + | Component | Value | Ref Range | Performed | Pathologist | | | | | At | Signature | + +-------+ + + + | Carbon | 26 | 19 - 31 | EXTERNAL | [...] + +---------+ + + External Lab: Chloride (06/21/2015) + +-------+ + + + | [...] + +---------+ + + External Lab: Potassium (06/21/2015) + +-------+ + + + | Component | Value | Ref Range | Performed | Pathologist | | | | | At | Signature | + +-------+ + + + | Potassium, | 4.3 | 3.6 - 5.1 | EXTERNAL | [...] + +---------+ + + External Lab: Sodium (06/21/2015) + +-------+ + + + | [...] + +---------+ + + External Lab: eGFR (06/21/2015) + +-------+ + + + | Component | Value | Ref Range | Performed | Pathologist | | | | | At | Signature | + +-------+ + + + | eGFR, | 18 | | EXTERNAL | | | External [...] + +---------+ + + External Lab: Creatinine (06/21/2015) + + + + + + | Component | Value | Ref Range | Performed | Pathologist | | | | | At | Signature | + + + + + + | Creatinine, | 3.67 (A) | 0.6 - 1.35 | EXTERNAL [...]
--- OUTSIDE RECORDS SUMMARY | ~2019-12-22 | XMS | Encounter Summary ---
Demographics + + + | Address | [address] | | | [place] [address] | + + + | Home Phone | | + + + | Preferred Language | Unknown | + + + | Marital Status | | + + + | Temple Affiliation | 1041 | + + + | Race | Unknown | + + + | Ethnic Group | Unknown | + + + Author + + + | Author | [facility] | | | and [place] | + + + | Organization | [facility] | | | and [place] | + + + | Address | Unknown | + + + | Phone | Unavailable | + + + Support + + + + + | Name | Relationship | Address | Phone | + + + + + | Ryan Oneill | ECON | [place], [place] | | | | | [address] | | + + + + + | Misty Boateng | ECON | [address] | | | | | [place] | | | | | [address] | | + + + + + Care Team Providers + +------+ + | Care Digital Asset Manager Name | Role | Phone | [...] | | | | | | | [place] | | | | | | | COLONOSCOPY | | | | | | | FLX DX | | | | | | | W/COLLJ SPEC | | | | | | | WHEN PFRMD | | | | | | | [place] | | | | | | | [...] | | | | | [address] | [address] [place] | | | | | [place] | [address] | | | | | [address] | [phone] | | | | | [phone] | | | +--------+ + + + [...] | | | | | [address] [facility] | | | | | | [place] [address] | | | | | | [phone] | | | | | | | [...] mg | | | | PRN Starting [facility] 11/08/15 at | | 16 1:05 [...] | mcg/kg/m | | | | Starting [facility] 11/08/15 at 1258, | | PM [...]
--- OUTSIDE RECORDS SUMMARY | ~2019-12-22 | XMS | Encounter Summary ---
Demographics + + + | Address | [address] [place] [address] | | | [place] [address] | + + + | Home Phone | | + + + | Preferred Language | Unknown | + + + | Marital Status | | + + + | Evangelical Affiliation | CHR | + + + | Race | White | + + + | Ethnic Group | Not or | + + + Author + + + | Author | [facility] | + + + | Organization | [facility] | + + + | Address | Unknown | + + + | Phone | Unavailable | + + + Support + + +---------+ + | Name | Relationship | Address | Phone | + + +---------+ + | Misty Oneill | ECON | Unknown | | + + +---------+ + Care Team Providers + +------+ + | Care Paint And Table Edger Name | Role | Phone | + [...] | | | [facility] Services at | [place], | | | | | [facility] [address] | [place] [address] | | | | | [address] Mailcode: | [phone] | | | | | [facility] | | | | | | and Healing, | | | | | | [address] | | | | | | [place], [place] | | | | | | [address] | | | | | | [phone] | | | +--------+ + + + [...]
--- OUTSIDE RECORDS SUMMARY | ~2019-12-22 | XMS | Encounter Summary ---
Demographics + + + | Address | [address] [place] [address] | | | [place] [address] | + + + | Home Phone [...] + + + | Author | [facility] | + + + | Organization | [facility] | + + + | Address | Unknown | + + + | Phone | Unavailable | + + + Support + + +---------+ + | Name | Relationship | Address | Phone | + + +---------+ + | Misty Oneill | ECON | Unknown | | + + +---------+ + Care Team Providers + +------+ + | Care Protozoologist Name | Role | Phone | + [...] | [address] | [place], | | | | | [place], | [place] [address] | | | | | [place] [address] | | | | | | [phone] | | | +--------+ + + + [...]
--- OUTSIDE RECORDS SUMMARY | ~2019-12-22 | XMS | Encounter Summary ---
Demographics + + + | Address | [address] | | | [place] [address] | + + + | Home Phone [...] [place], [place] | | | | | [address] | | + + + + + | Misty Boateng | ECON | [address] | | | | | [place], [place] | | | | | [address] | | + + + + + Care Team Providers + +------+ + | Care Social Media Developer Name | Role | Phone | + +------+ + PCP | Unavailable | + +------+ + Encounter Details +--------+ + + + + | Date | Type | Department | Care Team | Description | +--------+ + + + + | 12/24/ | Abstract | [facility] | Christine Martinez W, | | | 2016 | | NEPHROLOGY [address] | | | | | [address] | [address] [place] | | | | | [place], [place] | [place] [address] | | | | | [address] | [phone] | | | | | [phone] | | | +--------+ + + + [...] | | | | | [place] [address] | | | | | | [phone] | | | | | | | | +--------+---------+ + + + documented as of this encounter Procedures + +--------+ + + + | Procedure Name | Priori | Date/Time | Associated Diagnosis | Comments | | | ty | | | | + +--------+ + + + | EXTERNAL LAB: ANIVAL | Routin | 12/22/2016 | | Results for this | | | e | | | procedure are in the | | | | | | results section. | + +--------+ + + + | EXTERNAL LAB: | Routin | 12/22/2016 | | Results for this | | GLUCOSE | e | | | procedure are in the | | | | | | results section. | + +--------+ + + + | EXTERNAL LAB: | Routin | 12/22/2016 | | Results for this | | ALBUMIN | e | | | procedure are in the | | | | | | results section. | + +--------+ + + + | EXTERNAL LAB: | Routin | 12/22/2016 | | Results for this | | PHOSPHORUS | e | | | procedure are in the | | | | | | results section. | + +--------+ + + + | EXTERNAL LAB: | Routin | 12/22/2016 | | Results for this | | CALCIUM | e | | | procedure are in the | | | | | | results section. | + +--------+ + + + | EXTERNAL LAB: CARBON | Routin | 12/22/2016 | | Results for this | | DIOXIDE | e | | | procedure are in the | | | | | | results section. | + +--------+ + + + | EXTERNAL LAB: | Routin | 12/22/2016 | | Results for this | | CHLORIDE | e | | | procedure are in the | | | | | | results section. | + +--------+ + + + | EXTERNAL LAB: | Routin | 12/22/2016 | | Results for this | | POTASSIUM | e | | | procedure are in the | | | | | | results section. | + +--------+ + + + | EXTERNAL LAB: SODIUM | Routin | 12/22/2016 | | Results for this | | | e | | | procedure are in the | | | | | | results section. | + +--------+ + + + | EXTERNAL LAB: EGFR | Routin | 12/22/2016 | | Results for this | | | e | | | procedure are in the | | | | | | results section. | + +--------+ + + + | EXTERNAL LAB: | Routin | 12/22/2016 | | Results for this | | CREATININE | e | | | procedure are in the | | | | | | results section. | + +--------+ + + + documented in this encounter Results External Lab: BUN (12/22/2016) + +--------+ + + + | Component | Value | Ref Range | Performed | Pathologist | | | | | At | Signature | + +--------+ + + + | ANIVAL, | 29 (A) | 6 - 23 | EXTERNAL [...] + +---------+ + + External Lab: Glucose (12/22/2016) + +-------+ + + + | Component | Value | Ref Range | Performed | Pathologist | | | | | At | Signature | + +-------+ + + + | Glucose, | 87 | 70 - 100 | EXTERNAL | [...] + +---------+ + + External Lab: Albumin (12/22/2016) + +-------+ + + + | Component | Value | Ref Range | Performed | Pathologist | | | | | At | Signature | + +-------+ + + + | Albumin, | 4.3 | 3.5 - 5 | EXTERNAL | [...] + +---------+ + + External Lab: Phosphorus (12/22/2016) + +-------+ + + + | Component | Value | Ref Range | Performed | Pathologist | | | | | At | Signature | + +-------+ + + + | Phosphorus, | 3 | 2.5 - 5 | EXTERNAL | [...] + +---------+ + + External Lab: Calcium (12/22/2016) + +-------+ + + + | Component | Value | Ref Range | Performed | Pathologist | | | | | At | Signature | + +-------+ + + + | Calcium, | 9.3 | 8.4 - 10.2 | EXTERNAL | [...] +---------+ + + External Lab: Carbon Dioxide (12/22/2016) + +-------+ + + + | Component [...] + +---------+ + + External Lab: Chloride (12/22/2016) + +-------+ + + + | Component | Value | Ref Range | Performed | Pathologist | | | | | At | Signature | + +-------+ + + + | Chloride, | 104 | 95 - 112 | EXTERNAL | [...] + +---------+ + + External Lab: Potassium (12/22/2016) + +-------+ + + + | Component | Value | Ref Range | Performed | Pathologist | | | | | At | Signature | + +-------+ + + + | Potassium, | 4.6 | 3.6 - 5.1 | EXTERNAL | [...] + +---------+ + + External Lab: eGFR (12/22/2016) + +-------+ + + + | Component | Value | Ref Range | Performed | Pathologist | | | | | At | Signature | + +-------+ + + + | eGFR, | 23 | | EXTERNAL | | | External | | | LAB | | + +-------+ + + + + + | Specimen | + + | Blood | + + + + | Resulting Agency Comment | + + | [facility] | + + + +---------+ + + | Performing | Address | City/State/Zipcode | Phone Number | | Organization | | | | + +---------+ + + | EXTERNAL LAB | | | | + +---------+ + + External Lab: Creatinine (12/22/2016) + + + + + + | Component | Value | Ref Range | Performed | Pathologist | | | | | At | Signature | + + + + + + | Creatinine, | 2.99 (A) | 0.6 - 1.35 | EXTERNAL | | | External | | | LAB | | + + + + + + + + | Specimen | + + | Blood | + + + + | Resulting Agency Comment | + + | [facility] | + + + +---------+ + + | Performing | Address | City/State/Zipcode | Phone Number | | Organization | | | | + +---------+ + + | EXTERNAL LAB | | | | + +---------+ + + External Lab: Sodium (12/22/2016) + +-------+ + + + | Component | Value | Ref Range | Performed | Pathologist | | | | | At | Signature | + +-------+ + + + | Sodium, | 139 | 132 - 143 | EXTERNAL | [...]
--- OUTSIDE RECORDS SUMMARY | ~2019-12-22 | XMS | Encounter Summary ---
Demographics + + + | Address | [address] | | | [place] [address] | + + + | Home Phone | | + + + | Preferred Language | Unknown | + + + | Marital Status | | + + + | Caodaism Affiliation | 1041 | + + + | Race | Unknown | + + + | Ethnic Group | Unknown | + + + Author + + + | Author | [facility] | | | and [place] | + + + | Organization | [facility] | | | and [place] | + + + | Address | Unknown | + + + | Phone | Unavailable | + + + Support + + + + + | Name | Relationship | Address | Phone | + + + + + | Ryan Oneill | ECON | [place], [place] | | | | | [address] | | + + + + + | Misty Boateng | ECON | [address] | | | | | [place] | | | | | [address] | | + + + + + Care Team Providers + +------+ + | Care Agriculture Technician Name | Role | Phone | [...] Description | +--------+--------+ + + + | 10/11/ | Refill | [facility] | Christine Martinez W, | Medication Refill | | 2018 | | NEPHROLOGY [address] | MD [address] | | | | | [address] | [address] [facility] | | | | | [place], [place] | [place] [address] | | | | | [address] | [phone] | | | | | [phone] | | | +--------+--------+ + + + [...] | | | | | [place] [address] | | | | | | [phone] | | | | | | | | +--------+---------+ + + + documented as of this encounter Visit Diagnoses Not on filedocumented in this encounter"
--- OUTSIDE RECORDS SUMMARY | ~2019-12-22 | XMS | Encounter Summary ---
Demographics + + + | Address | [address] [place] [address] | | | [place] [address] | + + + | Home Phone | | + + + | Preferred Language | Unknown | + + + | Marital Status | | + + + | Buddhist Affiliation | CHR | + + + [...] Team Providers + +------+ + | Care Journeyman Welder Name | Role | Phone | + [...] | [facility] Services at | Kait Barrios [place], | | | | | [place] [address] | [place] [address] | | | | | [place] Mailcode: | [phone] | | | | | [facility] | | | | | | [facility], | | | | | | [address] | | | | | | [place], [place] | | | | | | [address] | | | | | | [phone] | | | +--------+ + + + [...]
--- OUTSIDE RECORDS SUMMARY | ~2019-12-22 | XMS | Encounter Summary ---
Demographics + + + | Address | [address] | | | [place] [address] | + + + | Home Phone | | + + + | Preferred Language | Unknown | + + + | Marital Status | | + + + | Jew Affiliation | 1041 | + + + | Race | Unknown | + + + | Ethnic Group | Unknown | + + + Author + + + | Author | [facility] | | | and [place] | + + + | Organization | [facility] | | | and [place] | + + + | Address | Unknown | + + + | Phone | Unavailable | + + + Support + + + + + | Name | Relationship | Address | Phone | + + + + + | Ryan Oneill | ECON | [place], [place] | | | | | [address] | | + + + + + | Misty Boateng | ECON | [address] | | | | | [place], [place] | | | | | [address] | | + + + + + Care Team Providers + +------+ + | Care Cheesemaker Name | Role | Phone | + +------+ + PCP | Unavailable | + +------+ + Encounter Details +--------+ + + + + | Date | Type | Department | Care Team | Description | +--------+ + + + + | 11/14/ | Abstract | [facility] | Christine Martinez W, | | | 2016 | | NEPHROLOGY [address] | | | | | [address] | [address] [place] | | | | | [place], [place] | [place] [address] | | | | | [address] | [phone] | | | | | [phone] | | | +--------+ + + + [...] | | | | | [place] [address] | | | | | | [phone] | | | | | | | | +--------+---------+ + + + documented as of this encounter Procedures + +--------+ + + + | Procedure Name | Priori | Date/Time | Associated Diagnosis | Comments | | | ty | | | | + +--------+ + + + | EXTERNAL LAB: ANIVAL | Routin | 11/13/2016 | | Results for this | | | e | | | procedure are in the | | | | | | results section. | + +--------+ + + + | EXTERNAL LAB: | Routin | 11/13/2016 | | Results for this | | GLUCOSE | e | | | procedure are in the | | | | | | results section. | + +--------+ + + + | EXTERNAL LAB: | Routin | 11/13/2016 | | Results for this | | ALBUMIN | e | | | procedure are in the | | | | | | results section. | + +--------+ + + + | EXTERNAL LAB: | Routin | 11/13/2016 | | Results for this | | PHOSPHORUS | e | | | procedure are in the | | | | | | results section. | + +--------+ + + + | EXTERNAL LAB: | Routin | 11/13/2016 | | Results for this | | CALCIUM | e | | | procedure are in the | | | | | | results section. | + +--------+ + + + | EXTERNAL LAB: CARBON | Routin | 11/13/2016 | | Results for this | | DIOXIDE | e | | | procedure are in the | | | | | | results section. | + +--------+ + + + | EXTERNAL LAB: | Routin | 11/13/2016 | | Results for this | | CHLORIDE | e | | | procedure are in the | | | | | | results section. | + +--------+ + + + | EXTERNAL LAB: | Routin | 11/13/2016 | | Results for this | | POTASSIUM | e | | | procedure are in the | | | | | | results section. | + +--------+ + + + | EXTERNAL LAB: SODIUM | Routin | 11/13/2016 | | Results for this | | | e | | | procedure are in the | | | | | | results section. | + +--------+ + + + | EXTERNAL LAB: CBC | Routin | 11/13/2016 | | Results for this | | | e | | | procedure are in the | | | | | | results section. | + +--------+ + + + | EXTERNAL LAB: EGFR | Routin | 11/13/2016 | | Results for this | | | e | | | procedure are in the | | | | | | results section. | + +--------+ + + + | EXTERNAL LAB: | Routin | 11/13/2016 | | Results for this | | CREATININE | e | | | procedure are in the | | | | | | results section. | + +--------+ + + + documented in this encounter Results External Lab: ANIVAL (11/13/2016) + +--------+ + + + | Component | Value | Ref Range | Performed | Pathologist | | | | | At | Signature | + +--------+ + + + | ANIVAL, | 26 (A) | 6 - 23 | EXTERNAL [...] + +---------+ + + External Lab: Glucose (11/13/2016) + +---------+ + + + | Component | Value | Ref Range | Performed | Pathologist | | | | | At | Signature | + +---------+ + + + | Glucose, | 101 (A) | 70 - 100 | EXTERNAL | | | External | | | LAB | | + +---------+ + + + + + | Resulting Agency Comment | + + | [facility] | + + + +---------+ + + | Performing | Address | City/State/Zipcode | Phone Number | | Organization | | | | + +---------+ + + | EXTERNAL LAB | | | | + +---------+ + + External Lab: Albumin (11/13/2016) + +-------+ + + + | Component [...] + +---------+ + + External Lab: Phosphorus (11/13/2016) + +-------+ + + + | Component | Value | Ref Range | Performed | Pathologist | | | | | At | Signature | + +-------+ + + + | Phosphorus, | 2.8 | 2.5 - 5 | EXTERNAL | [...] + +---------+ + + External Lab: Calcium (11/13/2016) + +-------+ + + + | Component | Value | Ref Range | Performed | Pathologist | | | | | At | Signature | + +-------+ + + + | Calcium, | 9.7 | 8.4 - 10.2 | [...] +---------+ + + External Lab: Carbon Dioxide (11/13/2016) + +-------+ + + + | Component [...] + +---------+ + + External Lab: Chloride (11/13/2016) + +-------+ + + + | Component [...] + +---------+ + + External Lab: Potassium (11/13/2016) + +-------+ + + + | Component | Value | Ref Range | Performed | Pathologist | | | | | At | Signature | + +-------+ + + + | Potassium, | 4.5 | 3.6 - 5.1 | EXTERNAL | [...] + +---------+ + + External Lab: Sodium (11/13/2016) + +-------+ + + + | Component [...] + +---------+ + + External Lab: CBC (11/13/2016) + + + + + + | Component | Value | Ref Range | Performed | Pathologist | | | | | At | Signature | + + + + + + | WBC, | 5.1 | 4.5 - 11 | EXTERNAL | | | External | | | LAB | | + + + + + + | HGB, | 12.8 (A) | 13.5 - 18 | EXTERNAL | | | External | | | LAB | | + + + + + + | HCT, | 37.2 (A) | 41 - 50 | EXTERNAL | | | External | | | LAB | | + + + + + + | PLT, | 202 | 140 - 440 | EXTERNAL | | | External | | | LAB | | + + + + + + | RBC, | 3.90 (A) | 4.3 - 5.7 | EXTERNAL | | | External | | | LAB | | + + + + + + | MCV, | 95 | 81 - 99 | EXTERNAL | | | External | | | LAB | | + + + + + + | RDW, | 14.4 | 10.5 - 15 | EXTERNAL | | | External | | | LAB | | + + + + + + + + | Resulting Agency Comment | + + | [facility] | + + + +---------+ + + | Performing | Address | City/State/Zipcode | Phone Number | | Organization | | | | + +---------+ + + | EXTERNAL LAB | | | | + +---------+ + + External Lab: eGFR (11/13/2016) + +-------+ + + + | Component [...] + +---------+ + + External Lab: Creatinine (11/13/2016) + + + + + + | Component | Value | Ref Range | Performed | Pathologist | | | | | At | Signature | + + + + + + | Creatinine, | 2.96 (A) | 0.6 - 1.35 | EXTERNAL [...]
--- OUTSIDE RECORDS SUMMARY | ~2019-12-22 | XMS | Encounter Summary ---
Demographics + + + | Address | [address] [place] [address] | | | [place] [address] | + + + | Home Phone [...] + + + | Author | [facility] | + + + | Organization | [facility] | + + + | Address | Unknown | + + + | Phone | Unavailable | + + + Support + + +---------+ + | Name | Relationship | Address | Phone | + + +---------+ + | Misty Oneill | ECON | Unknown | | + + +---------+ + Care Team Providers + +------+ + | Care Trimmer Loader Name | Role | Phone | + +------+ + | Hai Holman MD | PCP | | + +------+ + Encounter Details +--------+ + + + + | Date | Type | Department | Care Team | Description | +--------+ + + + + | 09/05/ | Documentati | [facility] | Ashlee Roland, | | | 2016 | on IP | Pharmacy [address] | PharmD [address] | | | | | [address] | [facility] | | | | | [place], [place] | [place] [address] | | | | | [address] | [phone] | | | | | | | [...] documented as of this encounter Progress Notes Ashlee Roland, PharmD - 09/05/2015 2:38 PM PSTFormatting of this note might be different fro m the original. Pharmacy Services: Pre-Transplant Medication Reconciliation Seema Oneill is a 44 year old male with a history of nterstitial nephritis , who is being e valuated for kidney transplantation. The patient s most recent medication information was obtained from patient and his . Patient Active Problem List Diagnosis Date Noted Anemia of chronic renal failure, stage 4 (severe) ([facility]) 09/05/2015 Venous malformation 09/05/2015 Overview Note: On outside CT CD (Crohn's disease) ([facility]) 05/29/2015 Inflammation of multiple joints 05/29/2015 Benign hypertension 05/23/2015 Overview Note: No clonidine One ED visit Clinical depression 10/08/2012 Overview Note: Not suicidal Not homicidal Acute Interstitial Nephritis 03/12/2009 Chronic kidney disease, stage IV (severe) ([facility]) 03/02/2009 Overview Note: 1. Progressive renal dysfxn 2. Abnormal R renal CT 3. Renal Bx: 11/25: Interstitial nephritis. ([facility]) 4. Corticosteroids instituted: 11/25 5. Negative immunologic w/u: ADAM, anti-DNA 6. eGFR 18: 08/2015 Pharmacy Preferences: [facility] [place] [address] Hours: 9am-9pm Mon-fri / 9am-7pm Sat / 10am-6pm Sun E-Prescribing: Yes E-Prescribing Control Substances: Yes Allergies Allergen Reactions Hydrocodone Pruritis Pt reports itching with most narcotics, no rash "just a lot of itching with narcotic" Updated Outpatient Medications: Current Medication List Name Sig CARVEDILOL 12.5 MG TABLET 12.5 mg two times daily. CHOLECALCIFEROL (VITAMIN D3) 5,000 UNIT CAPSULE Take 5,000 Units by mouth once daily. ESCITALOPRAM 20 MG TABLET Take 20 mg by mouth once daily. [facility] COLITIS-HIDR SUP STARTER 40 MG/0.8 ML SUB-Q KIT PANTOPRAZOLE 40 MG TABLET,DELAYED RELEASE LABORATORY VALUES Chemistry Lab Results Lab Test Name Results Date/Time GLU 95 09/05/15 GLU 73 03/12/09 BUN 44 09/05/15 BUN 46 06/21/15 CR 3.94 09/05/15 CR 3.67 06/21/15 PO4 4.0 09/05/15 PO4 3.3 03/12/09 MG 2.2 09/05/15 MG 2.12 01/04/09 CA 8.5 09/05/15 CA 9.1 03/12/09 TBILI 0.5 09/05/15 TBILI 0.6 09/27/08 AST 20 09/05/15 AST 17 09/27/08 ALT 26 09/05/15 ALT 11 09/27/08 K 4.1 09/05/15 K 4.8 03/12/09 ALB 4.0 09/05/15 ALB 3.9 06/21/15 CBC Lab Results Lab Test Name Results Date/Time WBC 4.52 09/05/15 WBC 10.4 03/12/09 HCT 37.2 09/05/15 HCT 40.6 03/12/09 PLT 171 09/05/15 PLT 247 03/12/09 Urine Lab Results Lab Test Name Results Date/Time URINEPROTEIN Negative 09/05/15 URINEPROTEIN neg 03/12/09 URINEGLUCOSE Negative 09/05/15 URINEGLUCOSE neg 03/12/09 URINEWBC 0 09/05/15 URINEREDCELL 2 09/05/15 URINEBACTERI None 09/05/15 Assessment/Recommendations: 1. Medication review was completed. Recipient is an excellent candidate for a kidney transp lant. The potential risks and benefits of transplantation were reviewed with the patient. PLAN: We will continue the evaluation and discuss in the Transplant Selection Conference. A total of 20 minutes were spent reviewing the patient's medications for pre-transplant kyle luation. For any further questions regarding this information contact pharmacy, pager #[phone] Thank you, Ashlee Francesronically signed by Ashlee Roland PharmD at 09/05/2015 2:39 PM PSTdocumented in this encounter Plan of Treatment Not on filedocumented as of this encounter Visit Diagnoses Not on filedocumented in this encounter
--- OUTSIDE RECORDS SUMMARY | ~2019-12-22 | XMS | Encounter Summary ---
Demographics + + + | Address | [address] | | | [place] [address] | + + + | Home Phone | | + + + | Preferred Language | Unknown | + + + | Marital Status | | + + + | Anglican Affiliation | 1041 | + + + | Race | Unknown | + + + | Ethnic Group | Unknown | + + + Author + + + | Author | [facility] | | | and [place] | + + + | Organization | [facility] | | | and [place] | + + + | Address | Unknown | + + + | Phone | Unavailable | + + + Support + + + + + | Name | Relationship | Address | Phone | + + + + + | Ryan Oneill | ECON | [place], [place] | | | | | [address] | | + + + + + | Misty Boateng | ECON | [address] | | | | | [place] | | | | | [address] | | + + + + + Care Team Providers + +------+ + | Care Hemmer Lockstitch Name | Role | Phone | + +------+ + | Jt Perkins MD | PCP | | + +------+ + Encounter Details +--------+ + + + + | Date | Type | Department | Care Team | Description | +--------+ + + + + | 09/15/ | Orders Only | [facility] | Carlito Gaona MD | | | 2013 | | NEPHROLOGY [place] | [address] [place] | | | | | [address] [place] | [address] [place], [place] | | | | | [address] [facility] [place], [place] | [address] | | | | | [address] | | | | | | [phone] | | | +--------+ + + + + Social History + +-------+ +--------+------+ | Tobacco Use | Types | Packs/Day | Years | Date | | | | | Used | | + +-------+ +--------+------+ | Never Assessed | | | | | + +-------+ +--------+------+ + + + | Sex Assigned at [...] | 2019 | Visit | | [facility] [address] [facility] | | | | | | [address] [place] | | | | | | [place] [address] | | | | | | [phone] | | | | | | | | +--------+---------+ + + + documented as of this encounter Procedures + +--------+ + + + | Procedure Name | Priori | Date/Time | Associated Diagnosis | Comments | | | ty | | | | + +--------+ + + + | EXTERNAL LAB: CBC | Routin | 09/15/2013 | | Results for this | | | e | 12:00 AM | | procedure are in the | | | | PST | | results section. | + +--------+ + + + | URINALYSIS WITH | Routin | 09/15/2013 | | Results for this | | MICROSCOPIC WITH | e | 12:00 AM | | procedure are in the | | CULTURE IF INDICATED | | PST | | results section. | + +--------+ + + + | VITAMIN D, | Routin | 09/15/2013 | | Results for this | | DEFICIENCY SCREEN | e | 12:00 AM | | procedure are in the | | (25-HYDROXY) | | PST | | results section. | + +--------+ + + + | PARATHYROID HORMONE, | Routin | 09/15/2013 | | Results for this | | INTACT AND CALCIUM | e | 12:00 AM | | procedure are in the | | | | PST | | results section. | + +--------+ + + + | PROTEIN/CREATININE | Routin | 09/15/2013 | | Results for this | | RATIO, URINE | e | 12:00 AM | | procedure are in the | | | | PST | | results section. | + +--------+ + + + | PROTEIN, URINE, | Routin | 09/15/2013 | | Results for this | | RANDOM | e | 12:00 AM | | procedure are in the | | | | PST | | results section. | + +--------+ + + + | CREATININE, URINE, | Routin | 09/15/2013 | | Results for this | | RANDOM | e | 12:00 AM | | procedure are in the | | | | PST | | results section. | + +--------+ + + + | URIC ACID | Routin | 09/15/2013 | | Results for this | | | e | 12:00 AM | | procedure are in the | | | | PST | | results section. | + +--------+ + + + | MAGNESIUM | Routin | 09/15/2013 | | Results for this | | | e | 12:00 AM | | procedure are in the | | | | PST | | results section. | + +--------+ + + + | RENAL FUNCTION PANEL | Routin | 09/15/2013 | | Results for this | | | e | 12:00 AM | | procedure are in the | | | | PST | | results section. | + +--------+ + + + documented in this encounter Results Urinalysis with Microscopic with Culture if Indicated (09/15/2013 12:00 AM PST) + + + + + + | Component | Value | Ref Range | Performed | Pathologist | | | | | At | Signature | + + + + + + | Color | Rita | | EXTERNAL | | | | | | LAB | | + + + + + + | Clarity | Clear | | EXTERNAL | | | | | | LAB | | + + + + + + | Spec Grav, | 1.026 | | EXTERNAL | | | Fluid | | | LAB | | + + + + + + | Leukocyte | Negative | | EXTERNAL | | | Esterase, | | | LAB | | | Urine | | | | | + + + + + + | Nitrite, | Negative | | EXTERNAL | | | Urine | | | LAB | | + + + + + + | Urobilinoge | Normal | | EXTERNAL | | | n, Urine | | | LAB | | + + + + + + | Total | 25 | | EXTERNAL | | | Protein | | | LAB | | + + + + + + | pH, Urine | 6 | | EXTERNAL | | | | | | LAB | | + + + + + + | Blood, | PositiveComment: 50 | | EXTERNAL | | | Urine | | | LAB | | + + + + + + | Ketones | 5 | | EXTERNAL | | | | | | LAB | | + + + + + + | Bilirubin, | Negative | | EXTERNAL | | | Urine | | | LAB | | + + + + + + | Glucose, | Negative | | EXTERNAL | | | Urine | | | LAB | | + + + + + + | WBC, UA | | | EXTERNAL | | | | | | LAB | | + + + + + + | RBC, UA | | | EXTERNAL | | | | | | LAB | | + + + + + + | Epithelial | | | EXTERNAL | | | Cells | | | LAB | | + + + + + + | Bacteria, | | | EXTERNAL | | | UA | | | LAB | | + + + + + + | HYALINE | | | EXTERNAL | | | CASTS UA | | | LAB | | + + + + + + + + | Specimen | + + | | + + + +---------+ + + | Performing | Address | City/State/Zipcode | Phone Number | | Organization | | | | + +---------+ + + | EXTERNAL LAB | | | | + +---------+ + + Parathyroid Hormone, Intact and Calcium (09/15/2013 12:00 AM PST) + +-------+ + + + | Component | Value | Ref Range | Performed | Pathologist | | | | | At | Signature | + +-------+ + + + | PTH Intact | 81.15 | | EXTERNAL | | | | | | LAB | | + +-------+ + + + | Calcium | 9.3 | | EXTERNAL | | | | | | LAB [...] | | | + +---------+ + + Protein/Creatinine Ratio, Urine (09/15/2013 12:00 AM PST) + +-------+ + + + | Component | Value | Ref Range | Performed | Pathologist | | | | | At | Signature | + +-------+ + + + | Protein/Cre | 112.0 | | EXTERNAL | | | at Ratio | | | LAB | | + +-------+ + + + + + | Specimen | + + | Urine specimen | | (specimen) | + + + +---------+ + + | Performing | Address | City/State/Zipcode | Phone Number | | Organization | | | | + +---------+ + + | EXTERNAL LAB | | | | + +---------+ + + Protein, Urine, Random (09/15/2013 12:00 AM PST) + +-------+ + + + | Component | Value | Ref Range | Performed | Pathologist | | | | | At | Signature | + +-------+ + + + | Protein, | 41 | | EXTERNAL | | | Urine | | | LAB | | + +-------+ + + + + + | Specimen | + + | Urine specimen | | (specimen) | + + + +---------+ + + | Performing | Address | City/State/Zipcode | Phone Number | | Organization | | | | + +---------+ + + | EXTERNAL LAB | | | | + +---------+ + + Creatinine, Urine, Random (09/15/2013 12:00 AM PST) + +-------+ + + + | Component | Value | Ref Range | Performed | Pathologist | | | | | At | Signature | + +-------+ + + + | Creatinine, | 366 | | EXTERNAL | | | 24H Ur | | | LAB | | + +-------+ + + + + + | Specimen | + + | Urine specimen | | (specimen) | + + + +---------+ + + | Performing | Address | City/State/Zipcode | Phone Number | | Organization | | | | + +---------+ + + | EXTERNAL LAB | | | | + +---------+ + + Vitamin D, Deficiency Screen (25-Hydroxy) (09/15/2013 12:00 AM PST) + +-------+ + + + | Component | Value | Ref Range | Performed | Pathologist | | | | | At | Signature | + +-------+ + + + | Vit D, | 26 | | EXTERNAL | | | 25-Hydroxy | | | LAB | | + [...] + +---------+ + + External Lab: CBC (09/15/2013 12:00 AM PST) + +-------+ + + + | Component | Value | Ref Range | Performed | Pathologist | | | | | At | Signature | + +-------+ + + + | WBC | 5.4 | 10 | EXTERNAL | | | | | | LAB | | + +-------+ + + + | Red Blood | 4.63 | 10 | EXTERNAL | | | Cells | | | LAB | | | Counted | | | | | + +-------+ + + + | Hemoglobin | 15.3 | g/dL | EXTERNAL | | | | | | LAB | | + +-------+ + + + | Hematocrit, | 43.9 | % | EXTERNAL | | | POC | | | LAB | | + +-------+ + + + | MCV | 94.9 | fL | EXTERNAL | | | | | | LAB | | + +-------+ + + + | MCH | 33 | pg | EXTERNAL | | | | | | LAB | | + +-------+ + + + | MCHC | 35 | g/dL | EXTERNAL | | | | | | LAB | | + +-------+ + + + | Platelet | 224 | K/ L | EXTERNAL | | | Count | | | LAB | | | Plasma | | | | | + +-------+ + + + | RDW-CV | 14.7 | % | EXTERNAL | | | | | | LAB | | + +-------+ + + + | MPV | | fL | EXTERNAL | | | | | | LAB | | + +-------+ + + + | Differentia | Auto | | EXTERNAL | | | l Type | | | LAB | | + +-------+ + + + | % Segmented | 64.7 | % | EXTERNAL | | | | | | LAB | | | Neutrophils | | | | | + +-------+ + + + | % | 23.1 | % | EXTERNAL | | | Lymphocytes | | | LAB | | + +-------+ + + + | % Monocytes | 10.5 | % | EXTERNAL | | | | | | LAB | | + +-------+ + + + | % | 1.2 | % | EXTERNAL | | | Eosinophils | | | LAB | | + +-------+ + + + | % Basophils | 0.5 | % | EXTERNAL | | | | | | LAB | | + +-------+ + + + | Absolute | | / L | EXTERNAL | | | Segmented | | | LAB | | | Neutrophils | | | | | + +-------+ + + + | Absolute | | / L | EXTERNAL | | | Lymphocytes | | | LAB | | + +-------+ + + + | Absolute | | / L | EXTERNAL | | | Monocytes | | | LAB | | + +-------+ + + + | Absolute | | / L | EXTERNAL | | | Eosinophils | | | LAB | | + +-------+ + + + | Absolute | | / L | EXTERNAL | | | Basophils | | | LAB | | + +-------+ + + + + + | Specimen | + + | Blood specimen | | (specimen) | + + + +---------+ + + | Performing | Address | City/State/Zipcode | Phone Number | | Organization | | | | + +---------+ + + | EXTERNAL LAB | | | | + +---------+ + + Uric Acid (09/15/2013 12:00 AM PST) + +-------+ + + + | Component | Value | Ref Range | Performed | Pathologist | | | | | At | Signature | + +-------+ + + + | Uric Acid | 5.5 | | EXTERNAL | | | | | | LAB [...] | | | + +---------+ + + Magnesium (09/15/2013 12:00 AM PST) + +-------+ + + + | Component | Value | Ref Range | Performed | Pathologist | | | | | At | Signature | + +-------+ + + + | Magnesium | 2.0 | mg/dL | EXTERNAL | | | | | | LAB [...] | | | + +---------+ + + Renal Function Panel (09/15/2013 12:00 AM PST) + +-------+ + + + | Component | Value | Ref Range | Performed | Pathologist | | | | | At | Signature | + +-------+ + + + | Glucose, | 92 | mg/dL | EXTERNAL | | | Fasting | | | LAB | | + +-------+ + + + | BUN | 27 | mg/dL | EXTERNAL | | | | | | LAB | | + +-------+ + + + | Creatinine | 1.70 | mg/dL | EXTERNAL | | | | | | LAB | | + +-------+ + + + | PHOSPHORUS | | mg/dL | EXTERNAL | | | | | | LAB | | + +-------+ + + + | Albumin | 4.8 | | EXTERNAL | | | | | | LAB | | + +-------+ + + + | Na | 137 | mmol/L | EXTERNAL | | | | | | LAB | | + +-------+ + + + | K | 4.4 | mmol/L | EXTERNAL | | | | | | LAB | | + +-------+ + + + | Cl | 103 | mmol/L | EXTERNAL | | | | | | LAB | | + +-------+ + + + | CO2 | 26 | mmol/L | EXTERNAL | | | | | | LAB | | + +-------+ + + + | Anion Gap | 12.4 | mmol/L | EXTERNAL | | | | | | LAB | | + +-------+ + + + | eGFR if not | | | EXTERNAL | | | | | | LAB | | | LATVIAN | | | | | + +-------+ + + + | Phosphorus, | 2.9 | | EXTERNAL | | | Inorganic | | | LAB | | + +-------+ + + + | BUN/Creatin | 15.9 | | EXTERNAL | | | ine Ratio | | | LAB | | + +-------+ + + + | Calcium | 9.3 | mg/dL | EXTERNAL | | | | | | LAB | | + +-------+ + + + | Estimated | 45 | mg/dL | EXTERNAL | | | GFR | | | LAB | | + [...]
--- OUTSIDE RECORDS SUMMARY | ~2019-12-22 | XMS | Encounter Summary ---
Demographics + + + | Address | [address] [place] [address] | | | [place] [address] | + + + | Home Phone [...] + + | Author | [facility] | + + + | Organization | [facility] | + + + | Address | Unknown | + + + | Phone | Unavailable | + + + Support + + +---------+ + | Name | Relationship | Address | Phone | + + +---------+ + | Misty Oneill | ECON | Unknown | | + + +---------+ + Care Team Providers + +------+ + | Care Capital Markets Specialist Name | Role | Phone | + +------+ + | Jt Perkins MD | PCP | | + +------+ + Reason for Visit + + + | Reason | Comments | + + + | T[facility]KO Waitlist | [facility] | + + + Encounter Details +--------+ + + + + | Date | Type | Department | Care Team | Description | +--------+ + + + + | 04/26/ | Documentati | Clinical | Thi Aden, | T[facility]KO Waitlist (TREVON, | | 2019 | on | Transplant Services | RN [address] [facility] | ) | | | | [address] | [address] | | | | | [place], | [place], [place] | | | | | [place] [address] | [address] | | | | | [phone] | | | +--------+ + + + [...]
--- OUTSIDE RECORDS SUMMARY | ~2019-12-22 | XMS | Encounter Summary ---
Demographics + + + | Address | [address] | | | [place] [address] | + + + | Home Phone | | + + + | Preferred Language | Unknown | + + + | Marital Status | | + + + | Gnosticist Affiliation | 1041 | + + + [...] [place], [place] | | | | | [address] | | + + + + + | Misty Boateng | ECON | [address] | | | | | [place], [place] | | | | | [address] | | + + + + + Care Team Providers + +------+ + | Care Kettle Room Helper Name | Role | Phone | + +------+ + PCP | Unavailable | + +------+ + Encounter Details +--------+ + + + + | Date | Type | Department | Care Team | Description | +--------+ + + + + | 09/26/ | Abstract | [facility] | Christine Martinez W, | | | 2016 | | NEPHROLOGY [address] | [address] | | | | | [address] | [address] [place] | | | | | [place], [place] | [place] [address] | | | | | [address] | [phone] | | | | | [phone] | | | +--------+ + + + [...] | | | | | [place] [address] | | | | | | [phone] | | | | | | | | +--------+---------+ + + + documented as of this encounter Procedures + +--------+ + + + | Procedure Name | Priori | Date/Time | Associated Diagnosis | Comments | | | ty | | | | + +--------+ + + + | EXTERNAL LAB: ANIVAL | Routin | 09/26/2016 | | Results for this | | | e | | | procedure are in the | | | | | | results section. | + +--------+ + + + | EXTERNAL LAB: | Routin | 09/26/2016 | | Results for this | | GLUCOSE | e | | | procedure are in the | | | | | | results section. | + +--------+ + + + | EXTERNAL LAB: | Routin | 09/26/2016 | | Results for this | | PHOSPHORUS | e | | | procedure are in the | | | | | | results section. | + +--------+ + + + | EXTERNAL LAB: | Routin | 09/26/2016 | | Results for this | | CALCIUM | e | | | procedure are in the | | | | | | results section. | + +--------+ + + + | EXTERNAL LAB: CARBON | Routin | 09/26/2016 | | Results for this | | DIOXIDE | e | | | procedure are in the | | | | | | results section. | + +--------+ + + + | EXTERNAL LAB: | Routin | 09/26/2016 | | Results for this | | CHLORIDE | e | | | procedure are in the | | | | | | results section. | + +--------+ + + + | EXTERNAL LAB: | Routin | 09/26/2016 | | Results for this | | POTASSIUM | e | | | procedure are in the | | | | | | results section. | + +--------+ + + + | EXTERNAL LAB: SODIUM | Routin | 09/26/2016 | | Results for this | | | e | | | procedure are in the | | | | | | results section. | + +--------+ + + + | EXTERNAL LAB: EGFR | Routin | 09/26/2016 | | Results for this | | | e | | | procedure are in the | | | | | | results section. | + +--------+ + + + | EXTERNAL LAB: | Routin | 09/26/2016 | | Results for this | | CREATININE | e | | | procedure are in the | | | | | | results section. | + +--------+ + + + documented in this encounter Results External Lab: ANIVAL (09/26/2016) + +--------+ + + + | Component | Value | Ref Range | Performed | Pathologist | | | | | At | Signature | + +--------+ + + + | BUN, | 29 (A) | 6 - 23 [...] + +---------+ + + External Lab: Glucose (09/26/2016) + +-------+ + + + | [...] + +---------+ + + External Lab: Phosphorus (09/26/2016) + +-------+ + + + | Component | Value | Ref Range | Performed | Pathologist | | | | | At | Signature | + +-------+ + + + | Phosphorus, | 3.3 | 2.5 - 5 | EXTERNAL | [...] + +---------+ + + External Lab: Calcium (09/26/2016) + +-------+ + + + | Component | Value | Ref Range | Performed | Pathologist | | | | | At | Signature | + +-------+ + + + | Calcium, | 106 | 95 - 112 | EXTERNAL | [...] +---------+ + + External Lab: Carbon Dioxide (09/26/2016) + +-------+ + + + | [...] + +---------+ + + External Lab: Chloride (09/26/2016) + +-------+ + + + | Component | Value | Ref Range | Performed | Pathologist | | | | | At | Signature | + +-------+ + + + | Chloride, | 106 | 95 - 112 | EXTERNAL | [...] + +---------+ + + External Lab: Potassium (09/26/2016) + +-------+ + + + | [...] + +---------+ + + External Lab: Sodium (09/26/2016) + +-------+ + + + | Component | Value | Ref Range | Performed | Pathologist | | | | | At | Signature | + +-------+ + + + | Sodium, | 140 | 132 - 143 | EXTERNAL | [...] + +---------+ + + External Lab: eGFR (09/26/2016) + +-------+ + + + | Component | Value | Ref Range | Performed | Pathologist | | | | | At | Signature | + +-------+ + + + | eGFR, | 19 | | EXTERNAL | | | External [...] + +---------+ + + External Lab: Creatinine (09/26/2016) + + + + + + | Component | Value | Ref Range | Performed | Pathologist | | | | | At | Signature | + + + + + + | Creatinine, | 3.49 (A) | 0.6 - 1.35 | EXTERNAL [...]
--- OUTSIDE RECORDS SUMMARY | ~2019-12-22 | XMS | Encounter Summary ---
Demographics + + + | Address | [address] [place] [address] | | | [place] [address] | + + + | Home Phone | | + + + | Preferred Language | Unknown | + + + | Marital Status | | + + + | Protestant Affiliation | CHR | + + + | Race | White | + + + | Ethnic Group | Not or | + + + Author + + + | Author | [facility] | + + + | Organization | [facility] | + + + | Address | Unknown | + + + | Phone | Unavailable | + + + Support + + +---------+ + | Name | Relationship | Address | Phone | + + +---------+ + | Misty Oneill | ECON | Unknown | | + + +---------+ + Care Team Providers + +------+ + | Care Senior It Assistant Name | Role | Phone | + +------+ + | Hai Holman MD | PCP | | + +------+ + Encounter Details +--------+------+ + + + | Date | Type | Department | Care Team | Description | +--------+------+ + + + | 09/05/ | Lab | Laboratory at [facility] | | Chronic kidney | | 2016 | | [address] | | disease, stage III | | | | [facility] | | (moderate) ([facility]); | | | | Michelle, 3rd floor | | Acute interstitial | | | | [place], [place] | | nephritis | | | | [id number] | | | | | | [phone] | | | +--------+------+ + + + Social History + + [...] | + +--------+ + + + | MEASLES (RUBEOLA) | Routin | 09/05/2015 | Chronic kidney | Results for this | | IGG | e | 7:58 AM | disease, stage III | procedure are in the | | | | PST | (moderate) (HCC) | results section. | | | | | Acute interstitial | | | | | | nephritis | | + +--------+ + + + | CULTURE, URINE [facility] | Routin | 09/05/2015 | Chronic kidney | Results for this | | | e | 7:58 AM | disease, stage III | procedure are in the | | | | PST | (moderate) ([facility]) | results section. | | | | | Acute interstitial | | | | | | nephritis | | + +--------+ + + + | CBC AND AUTO DIFF | Routin | 09/05/2015 | Chronic kidney | Results for this | | | e | 7:58 AM | disease, stage III | procedure are in the | | | | PST | (moderate) ([facility]) | results section. | | | | | Acute interstitial | | | | | | nephritis | | + +--------+ + + + | CONFIRMATORY ABO/RH | Routin | 09/05/2015 | Chronic kidney | Results for this | | | e | 7:58 AM | disease, stage III | procedure are in the | | | | PST | (moderate) ([facility]) | results section. | | | | | Acute interstitial | | | | | | nephritis | | + +--------+ + + + | LIT FLOW HLA AB PRA | Routin | 09/05/2015 | Chronic kidney | | | SCREEN I/II KE | e | 7:58 AM | disease, stage III | | | | | PST | (moderate) ([facility]) | | | | | | Acute interstitial | | | | | | nephritis | | + +--------+ + + + | MASSIEL TOWNSEND VIRUS | Routin | 09/05/2015 | Chronic kidney | Results for this | | AB VCA IGG, SERUM | e | 7:58 AM | disease, stage III | procedure are in the | | | | PST | (moderate) ([facility]) | results section. | | | | | Acute interstitial | | | | | | nephritis | | + +--------+ + + + | QUANTIFERON TB GOLD, | Routin | 09/05/2015 | Chronic kidney | Results for this | | BLOOD | e | 7:58 AM | disease, stage III | procedure are in the | | | | PST | (moderate) ([facility]) | results section. | | | | | Acute interstitial | | | | | | nephritis | | + +--------+ + + + | NICOTINE + | Routin | 09/05/2015 | Chronic kidney | Results for this | | METABOLITE SCREEN, | e | 7:58 AM | disease, stage III | procedure are in the | | URINE | | PST | (moderate) ([facility]) | results section. | | | | | Acute interstitial | | | | | | nephritis | | + +--------+ + + + | LIT HLA-B LOW RES-KE | Routin | 09/05/2015 | Chronic kidney | | | | e | 7:58 AM | disease, stage III | | | | | PST | (moderate) ([facility]) | | | | | | Acute interstitial | | | | | | nephritis | | + +--------+ + + + | LIT HLA-A LOW RES-KE | Routin | 09/05/2015 | Chronic kidney | | | | e | 7:58 AM | disease, stage III | | | | | PST | (moderate) ([facility]) | | | | | | Acute interstitial | | | | | | nephritis | | + +--------+ + + + | LIT HLA-DQ LOW | Routin | 09/05/2015 | Chronic kidney | | | RES-KE | e | 7:58 AM | disease, stage III | | | | | PST | (moderate) ([facility]) | | | | | | Acute interstitial | | | | | | nephritis | | + +--------+ + + + | LIT RBC GROUP TX KE, | Routin | 09/05/2015 | Chronic kidney | | | BLOOD | e | 7:58 AM | disease, stage III | | | | | PST | (moderate) ([facility]) | | | | | | Acute interstitial | | | | | | nephritis | | + +--------+ + + + | LIT HLA-DR LOW | Routin | 09/05/2015 | Chronic kidney | | | RES-KE | e | 7:58 AM | disease, stage III | | | | | PST | (moderate) ([facility]) | | | | | | Acute interstitial | | | | | | nephritis | | + +--------+ + + + | PROTHROMBIN GENE | Routin | 09/05/2015 | Chronic kidney | Results for this | | MUTATION, BLOOD | e | 7:58 AM | disease, stage III | procedure are in the | | | | PST | (moderate) ([facility]) | results section. | | | | | Acute interstitial | | | | | | nephritis | | + +--------+ + + + | HEPATITIS C | Routin | 09/05/2015 | Chronic kidney | Results for this | | QUANTITATIVE, PLASMA | e | 7:58 AM | disease, stage III | procedure are in the | | | | PST | (moderate) ([facility]) | results section. | | | | | Acute interstitial | | | | | | nephritis | | + +--------+ + + + | CMV IGG AND IGM ABS, | Routin | 09/05/2015 | Chronic kidney | Results for this | | SERUM | e | 7:58 AM | disease, stage III | procedure are in the | | | | PST | (moderate) ([facility]) | results section. | | | | | Acute interstitial | | | | | | nephritis | | + +--------+ + + + | INR | Routin | 09/05/2015 | Chronic kidney | Results for this | | | e | 7:58 AM | disease, stage III | procedure are in the | | | | PST | (moderate) ([facility]) | results section. | | | | | Acute interstitial | | | | | | nephritis | | + +--------+ + + + | CBC, WITH | Routin | 09/05/2015 | Chronic kidney | Results for this | | DIFFERENTIAL | e | 7:58 AM | disease, stage III | procedure are in the | | | | PST | (moderate) ([facility]) | results section. | | | | | Acute interstitial | | | | | | nephritis | | + +--------+ + + + | DRUG | Routin | 09/05/2015 | Chronic kidney | Results for this | | SCREEN,URINE;W/CONFI | e | 7:58 AM | disease, stage III | procedure are in the | | RM | | PST | (moderate) ([facility]) | results section. | | | | | Acute interstitial | | | | | | nephritis | | + +--------+ + + + | VARICELLA ZOSTER | Routin | 09/05/2015 | Chronic kidney | Results for this | | IGG, SERUM | e | 7:58 AM | disease, stage III | procedure are in the | | | | PST | (moderate) ([facility]) | results section. | | | | | Acute interstitial | | | | | | nephritis | | + +--------+ + + + | MUMPS IGG AB, SERUM | Routin | 09/05/2015 | Chronic kidney | Results for this | | | e | 7:58 AM | disease, stage III | procedure are in the | | | | PST | (moderate) ([facility]) | results section. | | | | | Acute interstitial | | | | | | nephritis | | + +--------+ + + + | COMPLETE METABOLIC | Routin | 09/05/2015 | Chronic kidney | Results for this | | SET | e | 7:58 AM | disease, stage III | procedure are in the | | (NA,K,CL,CO2,BUN,CRE | | PST | (moderate) ([facility]) | results section. | | AT,GLUC,CA,AST,ALT,B | | | Acute interstitial | | | KALPESH TOTAL,ALK | | | nephritis | | | PHOS,ALB,PROT TOTAL) | | | | | + +--------+ + + + | UA, DIPSTICK ONLY | Routin | 09/05/2015 | Chronic kidney | Results for this | | | e | 7:58 AM | disease, stage III | procedure are in the | | | | PST | (moderate) ([facility]) | results section. | | | | | Acute interstitial | | | | | | nephritis | | + +--------+ + + + | URINE, MICROSCOPIC | Routin | 09/05/2015 | Chronic kidney | Results for this | | EXAM | e | 7:58 AM | disease, stage III | procedure are in the | | | | PST | (moderate) ([facility]) | results section. | | | | | Acute interstitial | | | | | | nephritis | | + +--------+ + + + | HIV-1,2 AB/HIV-1 P24 | Routin | 09/05/2015 | Chronic kidney | Results for this | | AG SCRN | e | 7:58 AM | disease, stage III | procedure are in the | | | | PST | (moderate) ([facility]) | results section. | | | | | Acute interstitial | | | | | | nephritis | | + +--------+ + + + | RPR SERUM | Routin | 09/05/2015 | Chronic kidney | Results for this | | | e | 7:58 AM | disease, stage III | procedure are in the | | | | PST | (moderate) ([facility]) | results section. | | | | | Acute interstitial | | | | | | nephritis | | + +--------+ + + + | RUBELLA IGG AB, | Routin | 09/05/2015 | Chronic kidney | Results for this | | SERUM | e | 7:58 AM | disease, stage III | procedure are in the | | | | PST | (moderate) ([facility]) | results section. | | | | | Acute interstitial | | | | | | nephritis | | + +--------+ + + + | APTT (ACT. PART. | Routin | 09/05/2015 | Chronic kidney | Results for this | | THROMBO TIME) | e | 7:58 AM | disease, stage III | procedure are in the | | | | PST | (moderate) ([facility]) | results section. | | | | | Acute interstitial | | | | | | nephritis | | + +--------+ + + + | ANTIBODY SCREEN | Routin | 09/05/2015 | Chronic kidney | Results for this | | | e | 7:58 AM | disease, stage III | procedure are in the | | | | PST | (moderate) ([facility]) | results section. | | | | | Acute interstitial | | | | | | nephritis | | + +--------+ + + + | TYPE AND SCREEN | Routin | 09/05/2015 | Chronic kidney | Results for this | | | e | 7:58 AM | disease, stage III | procedure are in the | | | | PST | (moderate) ([facility]) | results section. | | | | | Acute interstitial | | | | | | nephritis | | + +--------+ + + + | ABO & RH TYPE | Routin | 09/05/2015 | Chronic kidney | Results for this | | | e | 7:58 AM | disease, stage III | procedure are in the | | | | PST | (moderate) ([facility]) | results section. | | | | | Acute interstitial | | | | | | nephritis | | + +--------+ + + + | CULTURE, URINE BACTI | Routin | 09/05/2015 | Chronic kidney | Results for this | | | e | 7:58 AM | disease, stage III | procedure are in the | | | | PST | (moderate) ([facility]) | results section. | | | | | Acute interstitial | | | | | | nephritis | | + +--------+ + + + | PHOSPHORUS, PLASMA | Routin | 09/05/2015 | Chronic kidney | Results for this | | | e | 7:58 AM | disease, stage III | procedure are in the | | | | PST | (moderate) ([facility]) | results section. | | | | | Acute interstitial | | | | | | nephritis | | + +--------+ + + + | HEPATITIS A AB IGM, | Routin | 09/05/2015 | Chronic kidney | Results for this | | SERUM | e | 7:58 AM | disease, stage III | procedure are in the | | | | PST | (moderate) ([facility]) | results section. | | | | | Acute interstitial | | | | | | nephritis | | + +--------+ + + + | HEPATITIS B SURFACE | Routin | 09/05/2015 | Chronic kidney | Results for this | | AB QUAL, SERUM | e | 7:58 AM | disease, stage III | procedure are in the | | | | PST | (moderate) ([facility]) | results section. | | | | | Acute interstitial | | | | | | nephritis | | + +--------+ + + + | HEPATITIS B SURFACE | Routin | 09/05/2015 | Chronic kidney | Results for this | | AG, SERUM | e | 7:58 AM | disease, stage III | procedure are in the | | | | PST | (moderate) ([facility]) | results section. | | | | | Acute interstitial | | | | | | nephritis | | + +--------+ + + + | HEPATITIS B CORE AB, | Routin | 09/05/2015 | Chronic kidney | Results for this | | SERUM | e | 7:58 AM | disease, stage III | procedure are in the | | | | PST | (moderate) ([facility]) | results section. | | | | | Acute interstitial | | | | | | nephritis | | + +--------+ + + + | HEPATITIS A AB | Routin | 09/05/2015 | Chronic kidney | Results for this | | SCREEN, SERUM | e | 7:58 AM | disease, stage III | procedure are in the | | | | PST | (moderate) ([facility]) | results section. | | | | | Acute interstitial | | | | | | nephritis | | + +--------+ + + + | BILIRUBIN DIRECT | Routin | 09/05/2015 | Chronic kidney | Results for this | | | e | 7:58 AM | disease, stage III | procedure are in the | | | | PST | (moderate) ([facility]) | results section. | | | | | Acute interstitial | | | | | | nephritis | | + +--------+ + + + | URIC ACID, PLASMA | Routin | 09/05/2015 | Chronic kidney | Results for this | | | e | 7:58 AM | disease, stage III | procedure are in the | | | | PST | (moderate) ([facility]) | results section. | | | | | Acute interstitial | | | | | | nephritis | | + +--------+ + + + | MAGNESIUM, PLASMA | Routin | 09/05/2015 | Chronic kidney | Results for this | | | e | 7:58 AM | disease, stage III | procedure are in the | | | | PST | (moderate) ([facility]) | results section. | | | | | Acute interstitial | | | | | | nephritis | | + +--------+ + + + | LDH TOTAL, PLASMA | Routin | 09/05/2015 | Chronic kidney | Results for this | | | e | 7:58 AM | disease, stage III | procedure are in the | | | | PST | (moderate) ([facility]) | results section. | | | | | Acute interstitial | | | | | | nephritis | | + +--------+ + + + | CHOLESTEROL TOTAL, | Routin | 09/05/2015 | Chronic kidney | Results for this | | PLASMA | e | 7:58 AM | disease, stage III | procedure are in the | | | | PST | (moderate) ([facility]) | results section. | | | | | Acute interstitial | | | | | | nephritis | | + +--------+ + + + documented in this encounter Results HEPATITIS A AB IGM, SERUM (09/05/2015 7:58 AM PST) + + + + + + | Component | Value | Ref Range | Performed | Pathologist | | | | | At | Signature | + + + + + + | HEPATITIS A | Negative | Negative | [facility] | | AB, IGM | | | [facility] | | | | | [place] | | + + + + + + + + | Specimen | + + | Blood - Blood | + + + + + + + | Performing | Address | City/State/Zipcode | Phone Number | | Organization | | | | + + + + + | [facility] | [address] | [place] [address] | | | [facility] | | | | + + + + + CONFIRMATORY ABO/RH (09/05/2015 7:58 AM PST) + + + + + + | Component | Value | Ref Range | Performed | Pathologist | | | | | At | Signature | + + + + + + | ABO Group | O | | [facility] | | | | | | LABORATORY | | | | | | SERVICES, | | | | | | TRANSFUSION | | | | | | MEDICINE | | + + + + + + | Rh Type | Positive | | [facility] | | | | | | LABORATORY | | | | | | SERVICES, | | | | | | TRANSFUSION | | | | | | MEDICINE | | + + + + + + + + | Specimen | + + | Blood - Blood | + + + + + + + | Performing | Address | City/State/Zipcode | Phone Number | | Organization | | | | + + + + + | [facility] | [address] | [place] [address] | | | SERVICES, | [address] | | | | TRANSFUSION MEDICINE | | | | + + + + + ANTIBODY SCREEN (09/05/2015 7:58 AM PST) + + + + + + | Component | Value | Ref Range | Performed | Pathologist | | | | | At | Signature | + + + + + + | Antibody | Negative | | [facility] | | | Screen | | | LABORATORY | | | | | | SERVICES, | | | | | | TRANSFUSION | | | | | | MEDICINE | | + + + + + + + + | Specimen | + + | Blood - Blood | + + + + + + + | Performing | Address | City/State/Zipcode | Phone Number | | Organization | | | | + + + + + | [facility] | [address] | [place] [address] | | | SERVICES, | [address] | | | | TRANSFUSION MEDICINE | | | | + + + + + ABO & RH TYPE (09/05/2015 7:58 AM PST) + + + + + + | Component | Value | Ref Range | Performed | Pathologist | | | | | At | Signature | + + + + + + | ABO Group | O | | [facility] | | | | | | LABORATORY | | | | | | SERVICES, | | | | | | TRANSFUSION | | | | | | MEDICINE | | + + + + + + | Rh Type | Positive | | [facility] | | | | | | LABORATORY | | | | | | SERVICES, | | | | | | TRANSFUSION | | | | | | MEDICINE | | + + + + + + + + | Specimen | + + | Blood - Blood | + + + + + + + | Performing | Address | City/State/Zipcode | Phone Number | | Organization | | | | + + + + + | [facility] | [address] | [place] [address] | | | SERVICES, | [address] | | | | TRANSFUSION MEDICINE | | | | + + + + + CULTURE, URINE [facility] (09/05/2015 7:58 AM PST) + + + + + + | Component | Value | Ref Range | Performed | Pathologist | | | | | At | Signature | + + + + + + | URINE | Insignificant growth | | [facility] | | | CULTURE | (<10,000 cfu/mL) | | LABORATORY | | | [facility] | | | SERVICES, | | | | | | CORE | | + + + + + + + + | Specimen | + + | Urine - Urine | | (substance) | + + + + + + + | Performing | Address | City/State/Zipcode | Phone Number | | Organization | | | | + + + + + | [facility] | [address] | [place] [address] | | | SERVICES, CORE | [address] | | | + + + + + CBC AND AUTO DIFF (09/05/2015 7:58 AM PST) + + + + + + | Component | Value | Ref Range | Performed | Pathologist | | | | | At | Signature | + + + + + + | WHITE CELL | 4.52 | 4.40 - 11.00 | [facility] | | | COUNT | | K/cu mm | LABORATORY | | | | | | SERVICES, | | | | | | CORE | | + + + + + + | RED CELL | 4.11 (L) | 4.50 - 6.00 | [facility] | | | COUNT | | M/cu mm | LABORATORY | | | | | | SERVICES, | | | | | | CORE | | + + + + + + | HEMOGLOBIN | 12.7 (L) | 13.5 - 17.5 | [facility] | | | | | g/dL | LABORATORY | | | | | | SERVICES, | | | | | | CORE | | + + + + + + | HEMATOCRIT | 37.2 (L) | 41.0 - 53.0 % | [facility] | | | | | | LABORATORY | | | | | | SERVICES, | | | | | | CORE | | + + + + + + | MCV | 90.5 | 80.0 - 96.0 fL | [facility] | | | | | | LABORATORY | | | | | | SERVICES, | | | | | | CORE | | + + + + + + | MCHC | 34.1 | 33.0 - 35.5 | [facility] | | | | | g/dL | LABORATORY | | | | | | SERVICES, | | | | | | CORE | | + + + + + + | RDW SD | 41.4 | 35.1 - 46.3 fL | [facility] | | | | | | LABORATORY | | | | | | SERVICES, | | | | | | CORE | | + + + + + + | PLATELET | 171 | 150 - 400 K/cu | [facility] | | | COUNT | | mm | LABORATORY | | | | | | SERVICES, | | | | | | CORE | | + + + + + + | MPV | 9.3 (L) | 9.7 - 12.3 fL | [facility] | | | | | | LABORATORY | | | | | | SERVICES, | | | | | | CORE | | + + + + + + | NRBC% | 0.0 | 0.0 - 0.3 % | [facility] | | | | | | LABORATORY | | | | | | SERVICES, | | | | | | CORE | | + + + + + + | NRBC# | 0.00 | 0.00 - 0.02 | [facility] | | | | | K/cu mm | LABORATORY | | | | | | SERVICES, | | | | | | CORE | | + + + + + + | NEUTROPHIL | 51.3 | 50.0 - 70.0 % | [facility] | | | % | | | LABORATORY | | | | | | SERVICES, | | | | | | CORE | | + + + + + + | LYMPHOCYTE | 34.5 | 18.0 - 42.0 % | [facility] | | | % | | | LABORATORY | | | | | | SERVICES, | | | | | | CORE | | + + + + + + | MONOCYTE % | 11.5 (H) | 3.5 - 9.0 % | [facility] | | | | | | LABORATORY | | | | | | SERVICES, | | | | | | CORE | | + + + + + + | EOS % | 1.8 | 1.0 - 3.0 % | [facility] | | | | | | LABORATORY | | | | | | SERVICES, | | | | | | CORE | | + + + + + + | BASO % | 0.7 | 0.0 - 2.0 % | [facility] | | | | | | LABORATORY | | | | | | SERVICES, | | | | | | CORE | | + + + + + + | IG% | 0.2Comment: Immature | 0.0 - 0.6 % | [facility] | | | | Granulocytes (IG) | | LABORATORY | | | | include metamyelocytes, | | SERVICES, | | | | myelocytes and | | CORE | | | | promyelocytes. Bands | | | | | | are not included in the | | | | | | IG count. Bands are | | | | | | included in the | | | | | | neutrophil count. | | | | + + + + + + | NEUTROPHIL | 2.32 | 1.80 - 7.70 | [facility] | | | # | | K/cu mm | LABORATORY | | | | | | SERVICES, | | | | | | CORE | | + + + + + + | LYMPHOCYTE | 1.56 | 1.00 - 4.80 | [facility] | | | # | | K/cu mm | LABORATORY | | | | | | SERVICES, | | | | | | CORE | | + + + + + + | MONOCYTE # | 0.52 | 0.10 - 0.90 | [facility] | | | | | K/cu mm | LABORATORY | | | | | | SERVICES, | | | | | | CORE | | + + + + + + | EOS # | 0.08 | 0.00 - 0.50 | [facility] | | | | | K/cu mm | LABORATORY | | | | | | SERVICES, | | | | | | CORE | | + + + + + + | BASO # | 0.03 | 0.00 - 0.10 | [facility] | | | | | K/cu mm | LABORATORY | | | | | | SERVICES, | | | | | | CORE | | + + + + + + | IG# | 0.01 | 0.00 - 0.03 | [facility] | | | | | K/cu mm | LABORATORY | | | | | | SERVICES, | | | | | | CORE | | + + + + + + + + | Specimen | + + | Blood - Blood | | (substance) | + + + + + | Narrative | Performed At | + + + | Immature Granulocytes (IG) include metamyelocytes, myelocytes | [facility] | | and promyelocytes. Bands are not included in the IG count. Bands are | LABORATORY | | included in the neutrophil count. | [facility] | + + + + + + + + | Performing | Address | City/State/Zipcode | Phone Number | | Organization | | | | + + + + + | [facility] | [address] | [place] [address] | | | ALIYAH MCKAY | [address] | | | + + + + + DRUG SCREEN,URINE;W/CONFIRM (09/05/2015 7:58 AM PST) + + + + + + | Component | Value | Ref Range | Performed | Pathologist | | | | | At | Signature | + + + + + + | AMPHETAMINE | Negative | Negative | [facility] | | | , URINE | | | LABORATORY | | | | | | SERVICES, | | | | | | CORE | | + + + + + + | AMPHETAMINE | <125 | <1,000 ng/mL | [facility] | | | CONC, | | | LABORATORY | | | URINE | | | SERVICES, | | | | | | CORE | | + + + + + + | BARBITURATE | Negative | Negative | [facility] | | | S, URINE | | | LABORATORY | | | | | | SERVICES, | | | | | | CORE | | + + + + + + | BARBITURATE | <20 | <200 ng/mL | [facility] | | | S CONC, | | | LABORATORY | | | URINE | | | SERVICES, | | | | | | CORE | | + + + + + + | BENZODIAZEP | Negative | Negative | [facility] | | | DEE DEE, URINE | | | LABORATORY | | | | | | SERVICES, | | | | | | CORE | | + + + + + + | BENZODIAZEP | <30 | <200 ng/mL | [facility] | | | INE CONC, | | | LABORATORY | | | URINE | | | SERVICES, | | | | | | CORE | | + + + + + + | COCAINE, | Negative | Negative | [facility] | | | URINE | | | LABORATORY | | | | | | SERVICES, | | | | | | CORE | | + + + + + + | COCAINE | <35 | <300 ng/mL | [facility] | | | CONC, URINE | | | LABORATORY | | | | | | SERVICES, | | | | | | CORE | | + + + + + + | CANNABINOID | Negative | Negative | [facility] | | | S, URINE | | | LABORATORY | | | | | | SERVICES, | | | | | | CORE | | + + + + + + | CANNABINOID | <15 | <50 ng/mL | [facility] | | | CONC, | | | LABORATORY | | | URINE | | | SERVICES, | | | | | | CORE | | + + + + + + | METHADONE, | Negative | Negative | [facility] | | | URINE | | | LABORATORY | | | | | | SERVICES, | | | | | | CORE | | + + + + + + | METHADONE | <107 | <300 ng/mL | [facility] | | | CONC, URINE | | | LABORATORY | | | | | | SERVICES, | | | | | | CORE | | + + + + + + | OPIATES, | Negative | Negative | [facility] | | | URINE | | | LABORATORY | | | | | | SERVICES, | | | | | | CORE | | + + + + + + | OPIATE | <50 | <300 ng/mL | [facility] | | | CONC, URINE | | | LABORATORY | | | | | | SERVICES, | | | | | | CORE | | + + + + + + | OXYCODONE, | Negative | Negative | [facility] | | | URINE | | | LABORATORY | | | | | | SERVICES, | | | | | | CORE | | + + + + + + + + | Specimen | + + | Urine - Urine | | (substance) | + + + + + | Narrative | Performed At | + + + | Minimum drug concentration yielding a positive urine drug screen. | [facility] | | Amphetamines >=1000 ng/mL Barbiturates | LABORATORY | | >=200 ng/mL Benzodiazepine | SERVICES, CORE | | >=200 ng/mL Cocaine >=300 ng/mL | | | Methadone >=300 ng/mL Opiates | | | >=300 ng/mL Oxycodone | | | >=100 ng/mL THC - Cannabinoid >=50 ng/mL | | | Screening results are confirmed by alternate method. Results are to | | | be used for medical (i.e. treatment) purposes only. The reported | | | result is an estimated concentration of drug that can be detected by | | | the method of analysis. | | + + + + + + + + | Performing | Address | City/State/Zipcode | Phone Number | | Organization | | | | + + + + + | [facility] | [id number] | [place] [address] | | | SERVICES, CORE | [address] | | | + + + + + NICOTINE + METABOLITE SCREEN, URINE (09/05/2015 7:58 AM PST) + + + + + + | Component | Value | Ref Range | Performed | Pathologist | | | | | At | Signature | + + + + + + | NICOTINE, | <2Comment: INTERPRETIVE | ng/mL | [facility] | | | URINE | INFORMATION: Nicotine | | REG UNIV | | | | and Metabolites, | | PTH - INTFC | | | | | | | | | | Urine, | | | | | | Quantitative | | | | | | Methodology: | | | | | | Quantitative Liquid | | | | | | Chromatography-Tandem | | | | | | Mass Spectrometry | | | | | | Positive cutoff:Nicotine | | | | | | 2 ng/mLCotinine 5 | | | | | | ng/aE3-GL-Qfdxvkom 50 | | | | | | ng/mLNornicotine | | | | | | 2 ng/mLAnabasine | | | | | | 3 ng/mL For | | | | | | medical purposes only; | | | | | | not valid for forensic | | | | | | use. This test is | | | | | | designed to evaluate | | | | | | recent use of | | | | | | nicotine-containing | | | | | | products. Passive and | | | | | | active exposure cannot | | | | | | be discriminated | | | | | | definitively, although a | | | | | | cutoff of 100 ng/mL | | | | | | cotinine is frequently | | | | | | used for surgery | | | | | | qualification purposes. | | | | | | For smoking cessation | | | | | | programs or compliance | | | | | | testing, the absence of | | | | | | expected drug(s) and/or | | | | | | drug metabolite(s) may | | | | | | indicate non-compliance, | | | | | | inappropriate timing of | | | | | | specimen collection | | | | | | relative to drug | | | | | | administration, poor | | | | | | drug absorption, | | | | | | diluted/adulterated | | | | | | urine, or limitations of | | | | | | testing. The | | | | | | concentration value must | | | | | | be greater than or | | | | | | equal to the cutoff to | | | | | | be reported as positive. | | | | | | Anabasine is included | | | | | | as a biomarker of | | | | | | tobacco use, versus | | | | | | nicotine replacement. | | | | | | Interpretive questions | | | | | | should be directed to | | | | | | the laboratory. Test | | | | | | developed and | | | | | | characteristics | | | | | | determined by [facility] | | | | | | Laboratories. See | | | | | | Compliance Statement B: | | | | | | [email or web address] | | | | | | by [address] | | | | | | [address]rez, [facility] [place] | | | | | | [address] | | | | | | [phone].[employer]. | | | | | | Calvin garcia, | | | | | | Alexandra MARK. Director | | | | + + + + + + | COTININE, | 103Comment: Cotinine is | ng/mL | [facility] | | | URINE | the major metabolite of | | REG UNIV | | | | nicotine and has | | PTH - INTFC | | | | ahalf-life of | | | | | | approximately 16 hours. | | | | | | Consistent with use ofa | | | | | | nicotine-containing | | | | | | product within 2 weeks | | | | | | of specimencollection. | | | | + + + + + + | NORNICOTINE | <2 | ng/mL | [facility] | | | , URINE | | | REG UNIV | | | | | | PTH - INTFC | | + + + + + + | ANABASINE, | <3 | ng/mL | [facility] | | | URINE | | | REG UNIV | | | | | | PTH - INTFC | | + + + + + + | 3-OH-COTINI | 524Comment: Nicotine is | ng/mL | [facility] | | | NE, URINE | metabolized to cotinine, | | REG UNIV | | | | and 0-EZ-hsrtplge is | | PTH - INTFC | | | | ametabolite of cotinine. | | | | | | After cessation from | | | | | | long-term orheavy use of | | | | | | nicotine products, | | | | | | 0-BO-neorfvso may | | | | | | persistfor weeks. | | | | + + + + + + + + | Specimen | + + | Urine - Urine | + + + + + + + | Performing | Address | City/State/Zipcode | Phone Number | | Organization | | | | + + + + + | [facility] | [address] | [place], [place] | | | UNIV PTH - INTFC | | [address] | | + + + + + QUANTIFERON TB GOLD, BLOOD (09/05/2015 7:58 AM PST) + + + + + + | Component | Value | Ref Range | Performed | Pathologist | | | | | At | Signature | + + + + + + | QUANTIFERON | Negative | Negative | [facility] | | | TB GOLD | | | AIRPORT - | | | | | | [place] | | + + + + + + | NIL | 0.174 | IU/mL | [facility] | | | | | | [facility] - | | | | | | [place] | | + + + + + + | TB AG | 0.275 | IU/mL | [facility] | | | | | | [facility] - | | | | | | [place] | | + + + + + + | MITOGEN | >=10 | IU/mL | [facility] | | | | | | [facility] - | | | | | | [place] | | + + + + + + | TB AG-NIL | 0.101 | IU/mL | [facility] | | | | | | [facility] - | | | | | | [place] | | + + + + + + | MITOGEN-NIL | 53.901 | IU/mL | [facility] | | | | | | [facility] - | | | | | | [place] | | + + + + + + + + | Specimen | + + | Blood - Blood | + + + + + + + | Performing | Address | City/State/Zipcode | Phone Number | | Organization | | | | + + + + + | [facility] | [address] | [place] [address] | | | [place] | | | | + + + + + HEPATITIS A AB SCREEN, SERUM (09/05/2015 7:58 AM PST) + + + + + + | Component | Value | Ref Range | Performed | Pathologist | | | | | At | Signature | + + + + + + | HEPATITIS A | Positive (A) | Negative | [facility] | | | AB TOTAL | | | AIRPORT - | | | | | | [place] | | + + + + + + + + | Specimen | + + | Blood - Blood | + + + + + + + | Performing | Address | City/State/Zipcode | Phone Number | | Organization | | | | + + + + + | [facility] | [address] | [place] [address] | | | [place] | | | | + + + + + CMV IGG AND IGM ABS, SERUM (09/05/2015 7:58 AM PST) + + + + + + | Component | Value | Ref Range | Performed | Pathologist | | | | | At | Signature | + + + + + + | CMV IGG AB | <0.20Comment: | U/mL | [facility] | | | | INTERPRETIVE | | REG UNIV | | | | INFORMATION: | | PTH - INTFC | | | | Cytomegalovirus | | | | | | Antibody, IgG 0.59 | | | | | | U/mL or less......... | | | | | | Not Detected 0.6 - | | | | | | 0.69 U/mL........... | | | | | | Indeterminate-Repeat | | | | | | testing in | | | | | | | | | | | | 10-14 days may be | | | | | | helpful. 0.70 U/mL or | | | | | | greater...... Detected | | | | | | In immunocompromised | | | | | | patients, CMV serology | | | | | | (IgG or IgM antibody | | | | | | titers) may not be | | | | | | reliable and may be | | | | | | misleading in the | | | | | | diagnosis of acute or | | | | | | reactivation CMV | | | | | | disease. The preferred | | | | | | method for diagnosis is | | | | | | culture of virus and/or | | | | | | demonstration of viral | | | | | | antigen in peripheral | | | | | | white cells (buffy | | | | | | coat), bronchoalveolar | | | | | | lavage (BAL) cells, or | | | | | | tissue biopsies. This | | | | | | test should not be used | | | | | | for blood donor | | | | | | screening, associated | | | | | | re-entry protocols, or | | | | | | for screening Human | | | | | | Cell, Tissues and | | | | | | Cellular and | | | | | | Tissue-Based Products | | | | | | (HCT/P). The best | | | | | | evidence for current | | | | | | infection is a | | | | | | significant change on | | | | | | two appropriately timed | | | | | | specimens, where both | | | | | | tests are done in the | | | | | | same laboratory at the | | | | | | same time. | | | | + + + + + + | CMV IGM AB | <8.0Comment: | <=29.9 AU/mL | [facility] | | | | INTERPRETIVE | | REG UNIV | | | | INFORMATION: | | PTH - INTFC | | | | Cytomegalovirus | | | | | | Antibody, IgM 29.9 | | | | | | AU/mL or Less ....... | | | | | | Not Detected 30.0-34.9 | | | | | | AU/mL........... | | | | | | Indeterminate-Repeat | | | | | | testing | | | | | | | | | | | | in 10-14 days may be | | | | | | helpful. 35.0 AU/mL or | | | | | | Greater .... | | | | | | Detected-IgM antibody to | | | | | | CMV | | | | | | | | | | | | detected which may | | | | | | indicate a | | | | | | | | | | | | current or recent | | | | | | infection. | | | | | | | | | | | | However, low | | | | | | levels of IgM | | | | | | | | | | | | antibodies may | | | | | | occasionally | | | | | | | | | | | | persist for more | | | | | | than 12 | | | | | | | | | | | | months | | | | | | post-infection. CMV | | | | | | serology is not useful | | | | | | for the evaluation of | | | | | | active or reactivated | | | | | | infection in | | | | | | immunocompromised | | | | | | patients. Molecular | | | | | | diagnostic tests (i.e. | | | | | | PCR)are preferred in | | | | | | these cases. This test | | | | | | should not be used for | | | | | | blood donor screening, | | | | | | associated re-entry | | | | | | protocols, or for | | | | | | screening Human Cell, | | | | | | Tissues and Cellular and | | | | | | Tissue-Based Products | | | | | | (HCT/P).Performed by | | | | | | [address] | | | | | | Sherry [address]rez, [facility] [place] | | | | | | [address] | | | | | | [phone].[facility]. | | | | | | Calvin garcia, | | | | | | Alexandra MARK. Director | | | | + + + + + + + + | Specimen | + + | Blood - Blood | + + + + + + + | Performing | Address | City/State/Zipcode | Phone Number | | Organization | | | | + + + + + | [facility] | [address] | [place], [place] | | | UNIV PTH - INTFC | | [address] | | + + + + + MASSIEL TOWNSEND VIRUS AB VCA IGG, SERUM (09/05/2015 7:58 AM PST) + + + + + + | Component | Value | Ref Range | Performed | Pathologist | | | | | At | Signature | + + + + + + | MASSIEL | 241.0 (H)Comment: | 0.0 - 21.9 U/mL | [facility] | | | TOWNSEND VIRUS | INTERPRETIVE | | REG UNIV | | | AB VCA IGG | INFORMATION: | | PTH - INTFC | | | | Massiel-Townsend Virus | | | | | | Antibody to | | | | | | | | | | | | Viral Capsid Antigen, | | | | | | IgG 17.9 U/mL or | | | | | | less.......Not Detected | | | | | | 18.0-21.9 | | | | | | U/mL..........Indetermin | | | | | | ate - Repeat testing in | | | | | | | | | | | | 10-14 | | | | | | days may be helpful. | | | | | | 22.0 U/mL or | | | | | | greater....Detected | | | | | | Interpretive information | | | | | | regarding serologic | | | | | | features of | | | | | | EBV-associated diseases | | | | | | is available at | | | | | | [email or web address] | | | | | | x.Performed by [facility] | | | | | | Laboratories,[address] [facility] | | | | | | [place] [address] | | | | | | [phone].[facility]. | | | | | | Calvin garcia, | | | | | | , Lab. Director | | | | + + + + + + + + | Specimen | + + | Blood - Blood | + + + + + + + | Performing | Address | City/State/Zipcode | Phone Number | | Organization | | | | + + + + + | [facility] | [address] | [place], [place] | | | UNIV PTH - INTFC | | [address] | | + + + + + VARICELLA ZOSTER IGG, SERUM (09/05/2015 7:58 AM PST) + + + + + + | Component | Value | Ref Range | Performed | Pathologist | | | | | At | Signature | + + + + + + | VARICELLA | Positive | | [facility] | | | ZOSTER IGG | | | AIR[facility] - | | | | | | [place] | | + + + + + + + + | Specimen | + + | Blood - Blood | + + + + + + + | Performing | Address | City/State/Zipcode | Phone Number | | Organization | | | | + + + + + | [facility] | [address] | [place] [address] | | | [place] | | | | + + + + + RPR SERUM (09/05/2015 7:58 AM PST) + + + + + + | Component | Value | Ref Range | Performed | Pathologist | | | | | At | Signature | + + + + + + | RPR SRM | Non ReactiveComment: | Non Reactive | [facility] | | | QUAL | Rapid Plasma Reagin | | REG UNIV | | | | screening test is | | PTH - INTFC | | | | Non-Reactive. No further | | | | | | reflex testing is | | | | | | required.Performed by | | | | | | [address] | | | | | | [address]ry [address]rez, [facility] [place] | | | | | | [address] | | | | | | [phone].[facility]is. | | | | | | Calvin garcia, | | | | | | , Lab. Director | | | | + + + + + + + + | Specimen | + + | Blood - Blood | + + + + + + + | Performing | Address | City/State/Zipcode | Phone Number | | Organization | | | | + + + + + | [facility] | [address] | [place], [place] | | | UNIV PTH - INTFC | | [address] | | + + + + + HIV-1,2 AB/HIV-1 P24 AG SCRN, SERUM (09/05/2015 7:58 AM PST) + + + + + + | Component | Value | Ref Range | Performed | Pathologist | | | | | At | Signature | + + + + + + | HIV-1,2 | Negative | Negative | [facility] | | | AB/HIV-1 | | | LABORATORY | | | P24 AG | | | SERVICES, | | | SCREEN | | | SPECIAL IMM | | | | | | + COAG | | + + + + + + + + | Specimen | + + | Blood - Blood | | (substance) | + + + + + | Narrative | Performed At | + + + | HIV-1 p24 Ag and HIV-1,2 Ab not detected. Test modified from | [facility] | | original field health officer's approved specifications. | LABORATORY | | | SERVICES, | | | SPECIAL IMM + | | | COAG | + + + + + + + + | Performing | Address | City/State/Zipcode | Phone Number | | Organization | | | | + + + + + | [facility] | [address] | [place] [address] | | | SERVICES, SPECIAL | [address] | | | | IMM + [place] | | | | + + + + + HEPATITIS C QUANTITATIVE, PLASMA (09/05/2015 7:58 AM PST) + + + + + + | Component | Value | Ref Range | Performed | Pathologist | | | | | At | Signature | + + + + + + | HEP C PCR, | Undetected | Undetected, | [facility] | | | QUANT | | Undetected - | DIAGNOSTIC | | | | | See Below IU/mL | | | | | | | LABORATORIE | | | | | | S | | + + + + + + + + | Specimen | + + | Blood - Blood | | (substance) | + + + + + | Narrative | Performed At | + + + | Reportable Range: 12-100,000,000 IU/mL These results are most | [facility] | | likely suggestive of either the absence of HCV viremia or the | DIAGNOSTIC | | presence of low-level HCV viremia at or below the assays lower | LABORATORIES | | sensitivity limit of 12 IU/mL. | | + + + + + + + + | Performing | Address | City/State/Zipcode | Phone Number | | Organization | | | | + + + + + | [facility] | [address] | [place] [address] | | | DIAGNOSTIC | [address] | | | | LABORATORIES | | | | + + + + + HEPATITIS B SURFACE AG, SERUM (09/05/2015 7:58 AM PST) + + + + + + | Component | Value | Ref Range | Performed | Pathologist | | | | | At | Signature | + + + + + + | HEPATITIS B | Negative | Negative | [facility] | | | SURFACE | | | AIR[facility] - | | | AG, SERUM | | | [place] | | + + + + + + + + | Specimen | + + | Blood - Blood | + + + + + + + | Performing | Address | City/State/Zipcode | Phone Number | | Organization | | | | + + + + + | [facility] | [address] | [place] [address] | | | [place] | | | | + + + + + HEPATITIS B SURFACE AB QUAL, SERUM (09/05/2015 7:58 AM PST) + + + + + + | Component | Value | Ref Range | Performed | Pathologist | | | | | At | Signature | + + + + + + | HEP B | Reactive (A) | Non Reactive | [facility] | | | SURFACE AB | | | AIRPORT - | | | QUAL, SERUM | | | [place] | | + + + + + + + + | Specimen | + + | Blood - Blood | + + + + + + + | Performing | Address | City/State/Zipcode | Phone Number | | Organization | | | | + + + + + | [facility] | [address] | [place] [address] | | | [place] | | | | + + + + + HEPATITIS B CORE AB, SERUM (09/05/2015 7:58 AM PST) + + + + + + | Component | Value | Ref Range | Performed | Pathologist | | | | | At | Signature | + + + + + + | HEPATITIS B | Negative | Negative | [facility] | | | CORE AB, | | | AIRPORT - | | | SERUM | | | [place] | | + + + + + + + + | Specimen | + + | Blood - Blood | + + + + + + + | Performing | Address | City/State/Zipcode | Phone Number | | Organization | | | | + + + + + | [facility] | [address] | [place] [address] | | | [place] | | | | + + + + + RUBELLA IGG AB, SERUM (09/05/2015 7:58 AM PST) + +--------+ + + + | Component | Value | Ref Range | Performed | Pathologist | | | | | At | Signature | + +--------+ + + + | RUBELLA IGG | 26 | >=15 IU/mL | [facility] - | | | AB | | | AIRPORT - | | | | | | [place] | | + +--------+ + + + | RUBELLA IGG | Immune | | [facility] | | | | | | AIRPORT - | | | INTERPRETAT | | | [place] | | | ION | | | | | + +--------+ + + + + + | Specimen | + + | Blood - Blood | + + + + + + + | Performing | Address | City/State/Zipcode | Phone Number | | Organization | | | | + + + + + | [facility] | [address] | [place] [address] | | | [place] | | | | + + + + + MUMPS IGG AB, SERUM (09/05/2015 7:58 AM PST) + + + + + + | Component | Value | Ref Range | Performed | Pathologist | | | | | At | Signature | + + + + + + | MUMPS IGG | <5.0Comment: | AU/mL | [facility] | | | AB TITER | INTERPRETIVE | | REG UNIV | | | | INFORMATION: Mumps Ab, | | PTH - INTFC | | | | IgG by PAPITO 8.9 AU/mL | | | | | | or less .... Negative - | | | | | | No significant level of | | | | | | | | | | | | detectable | | | | | | IgG mumps virus antibody | | | | | | 9.0-10.9 AU/mL | | | | | | ....... Equivocal - | | | | | | Repeat testing in 10-14 | | | | | | | | | | | | days may be | | | | | | helpful 11.0 AU/mL or | | | | | | greater: Positive - IgG | | | | | | antibody to mumps | | | | | | | | | | | | virus detected, | | | | | | which may indicate | | | | | | | | | | | | a current or past | | | | | | exposure/ | | | | | | | | | | | | immunization to mumps | | | | | | virus. The best | | | | | | evidence for current | | | | | | infection is a | | | | | | significant change on | | | | | | two appropriately timed | | | | | | specimens, where both | | | | | | tests are done in the | | | | | | same laboratory at the | | | | | | same time.Performed by | | | | | | [address] | | | | | | Sherry [address]rez, [facility] [place] | | | | | | [address] | | | | | | [phone].[facility] [[email or web address]. | | | | | | jose, Calvin Ty, | | | | | | Alexandra MARK. Director | | | | + + + + + + + + | Specimen | + + | Blood - Blood | + + + + + + + | Performing | Address | City/State/Zipcode | Phone Number | | Organization | | | | + + + + + | [facility] | [address] | [place], [place] | | | UNIV PTH - INTFC | | [address] | | + + + + + MEASLES (RUBEOLA) IGG (09/05/2015 7:58 AM PST) + + + + + + | Component | Value | Ref Range | Performed | Pathologist | | | | | At | Signature | + + + + + + | MEASLES IGG | 119.0Comment: | AU/mL | [facility] | | | RESULT | INTERPRETIVE | | REG UNIV | | | | INFORMATION: Measles | | PTH - INTFC | | | | (Rubeola) Antibody, IgG | | | | | | 24.9 AU/mL or | | | | | | less........ Negative - | | | | | | No significant level | | | | | | | | | | | | of | | | | | | detectable measles | | | | | | (rubeola) | | | | | | | | | | | | IgG antibody. | | | | | | 25.0-29.9 AU/mL | | | | | | .......... Equivocal - | | | | | | Repeat testing in | | | | | | | | | | | | 10-14 days | | | | | | may be helpful. 30.0 | | | | | | AU/mL or greater .... | | | | | | Positive - IgG antibody | | | | | | to | | | | | | | | | | | | measles (rubeola) | | | | | | detected | | | | | | | | | | | | which may indicate a | | | | | | current | | | | | | | | | | | | or past | | | | | | exposure/immunization | | | | | | | | | | | | to | | | | | | measles (rubeola). The | | | | | | best evidence for | | | | | | current infection is a | | | | | | significant change on | | | | | | two appropriately timed | | | | | | specimens, where both | | | | | | tests are done in the | | | | | | same laboratory at the | | | | | | same time.Performed by | | | | | | [address] | | | | | | [address]ry [facility], [facility] [place] | | | | | | [address] | | | | | | [phone].[facility]. | | | | | | Calvin garcia, | | | | | | , Lab. Director | | | | + + + + + + + + | Specimen | + + | Blood - Blood | + + + + + + + | Performing | Address | City/State/Zipcode | Phone Number | | Organization | | | | + + + + + | [facility] | [address] | [place], [place] | | | UNIV PTH - INTFC | | [address] | | + + + + + URINE, MICROSCOPIC EXAM (09/05/2015 7:58 AM PST) + +-------+ + + + | Component | Value | Ref Range | Performed | Pathologist | | | | | At | Signature | + +-------+ + + + | RED CELLS | 2 | 0 - 3 /hpf | [facility] | | | | | | LABORATORY | | | | | | SERVICES, | | | | | | CORE | | + +-------+ + + + | WHITE CELLS | 0 | 0 - 5 /hpf | [facility] | | | | | | LABORATORY | | | | | | SERVICES, | | | | | | CORE | | + +-------+ + + + | BACTERIA | None | None /hpf | [facility] | | | | | | LABORATORY | | | | | | SERVICES, | | | | | | CORE | | + +-------+ + + + | YEAST (LAB) | None | None /hpf | [facility] | | | | | | LABORATORY | | | | | | SERVICES, | | | | | | CORE | | + +-------+ + + + | SQUAMOUS | None | None /hpf | [facility] | | | EPITHELIAL | | | LABORATORY | | | | | | SERVICES, | | | | | | CORE | | + +-------+ + + + | MUCOUS | None | None /hpf | [facility] | | | | | | LABORATORY | | | | | | SERVICES, | | | | | | CORE | | + +-------+ + + + | TRICHOMONAS | None | None /hpf | [facility] | | | | | | LABORATORY | | | | | | SERVICES, | | | | | | CORE | | + +-------+ + + + | NON-SQUAMOU | None | None /hpf | [facility] | | | S EPITH | | | LABORATORY | | | | | | SERVICES, | | | | | | CORE | | + +-------+ + + + | HYALINE | 0 | 0 - 2 /lpf | [facility] | | | CASTS | | | LABORATORY | | | | | | SERVICES, | | | | | | CORE | | + +-------+ + + + | GRANULAR | 0 | 0 - 2 /lpf | [facility] | | | CASTS | | | LABORATORY | | | | | | SERVICES, | | | | | | CORE | | + +-------+ + + + | CELLULAR | 0 | <=0 /lpf | [facility] | | | CASTS | | | LABORATORY | | | | | | SERVICES, | | | | | | CORE | | + +-------+ + + + | TRIPLE P04 | None | None /hpf | [facility] | | | CRYSTALS | | | LABORATORY | | | | | | SERVICES, | | | | | | CORE | | + +-------+ + + + | CALCIUM | None | None /hpf | [facility] | | | OXALATE | | | LABORATORY | | | ERNESTO | | | SERVICES, | | | | | | CORE | | + +-------+ + + + | URIC ACID | None | None /hpf | [facility] | | | CRYSTALS | | | LABORATORY | | | | | | SERVICES, | | | | | | CORE | | + +-------+ + + + | AMORPHOUS | None | None /hpf | [facility] | | | CRYSTALS | | | LABORATORY | | | | | | SERVICES, | | | | | | CORE | | + +-------+ + + + + + | Specimen | + + | Urine - Urine | | (substance) | + + + + + + + | Performing | Address | City/State/Zipcode | Phone Number | | Organization | | | | + + + + + | [facility] | [address] | [place] [address] | | | SERVICES, CORE | [address] | | | + + + + + TALI MORSE ONLY (09/05/2015 7:58 AM PST) + + + + + + | Component | Value | Ref Range | Performed | Pathologist | | | | | At | Signature | + + + + + + | COLOR(UR) | Yellow | | [facility] | | | | | | LABORATORY | | | | | | SERVICES, | | | | | | CORE | | + + + + + + | APPEARANCE | Clear | | [facility] | | | | | | LABORATORY | | | | | | SERVICES, | | | | | | CORE | | + + + + + + | GLUCOSE(UR) | Negative | Negative, 50.0 | [facility] | | | | | mg/dL | LABORATORY | | | | | | SERVICES, | | | | | | CORE | | + + + + + + | PROTEIN(LAB | Negative | Negative, 30.0 | [facility] | | | ) | | mg/dL | LABORATORY | | | | | | SERVICES, | | | | | | CORE | | + + + + + + | BILIRUBIN | Negative | Negative | [facility] | | | | | | LABORATORY | | | | | | SERVICES, | | | | | | CORE | | + + + + + + | UROBILINOGE | <2.0 | <2.0 mg/dL | [facility] | | | N | | | LABORATORY | | | | | | SERVICES, | | | | | | CORE | | + + + + + + | PH(UR) | 6.0 | 5.0 - 8.0 | [facility] | | | | | | LABORATORY | | | | | | SERVICES, | | | | | | CORE | | + + + + + + | BLOOD | Negative | Negative | [facility] | | | | | | LABORATORY | | | | | | SERVICES, | | | | | | CORE | | + + + + + + | KETONES | Negative | Negative mg/dL | [facility] | | | | | | LABORATORY | | | | | | SERVICES, | | | | | | CORE | | + + + + + + | NITRITES | Negative | Negative | [facility] | | | | | | LABORATORY | | | | | | SERVICES, | | | | | | CORE | | + + + + + + | LEUKOCYTE | Negative | Negative | [facility] | | | ESTERASE | | | LABORATORY | | | | | | SERVICES, | | | | | | CORE | | + + + + + + | SPECIFIC | 1.013 | 1.005 - 1.030 | [facility] | | | GRAVITY | | | LABORATORY | | | | | | SERVICES, | | | | | | CORE | | + + + + + + + + | Specimen | + + | Urine - Urine | | (substance) | + + + + + + + | Performing | Address | City/State/Zipcode | Phone Number | | Organization | | | | + + + + + | [facility] | [id number] | [place] [address] | | | SERVICES, CORE | [address] | | | + + + + + INR (09/05/2015 7:58 AM PST) + +-------+ + + + | Component | Value | Ref Range | Performed | Pathologist | | | | | At | Signature | + +-------+ + + + | INR | 0.93 | 0.90 - 1.20 INR | [facility] | | | | | | LABORATORY | | | | | | SERVICES, | | | | | | CORE | | + +-------+ + + + + + | Specimen | + + | Blood - Blood | | (substance) | + + + + + | Narrative | Performed At | + + + | INR Therapeutic ranges for full anticoagulation: INR for | [facility] | | Venous Thromboembolism (2.0 - 3.0) INR INR for | LABORATORY | | most patients with mech. valves (2.5 - 3.5) INR | SERVICES, CORE | + + + + + + + + | Performing | Address | City/State/Zipcode | Phone Number | | Organization | | | | + + + + + | [facility] | [address] | [place] [address] | | | SERVICES, CORE | [address] | | | + + + + + APTT (ACT. PART. THROMBO TIME) (09/05/2015 7:58 AM PST) + +-------+ + + + | Component | Value | Ref Range | Performed | Pathologist | | | | | At | Signature | + +-------+ + + + | APTT | 30.2 | 26.0 - 36.0 | [facility] | | | | | seconds | LABORATORY | | | | | | SERVICES, | | | | | | CORE | | + +-------+ + + + + + | Specimen | + + | Blood - Blood | | (substance) | + + + + + | Narrative | Performed At | + + + | APTT Therapeutic Range: (75 - | [facility] | | 120) sec Heparin levels of 0.35 - 0.7 U/mL | LABORATORY | | | SERVICES, CORE | + + + + + + + + | Performing | Address | City/State/Zipcode | Phone Number | | Organization | | | | + + + + + | [facility] | [address] | [place] [address] | | | SERVICES, CORE | [address] | | | + + + + + PROTHROMBIN GENE MUTATION, BLOOD (09/05/2015 7:58 AM PST) + + + + + + | Component | Value | Ref Range | Performed | Pathologist | | | | | At | Signature | + + + + + + | PROTHROMBIN | No Mutation | No Mutation, No | [facility] | | | GENE | | Mutation; see | DIAG[facility]STIC | | | MUTATION | | below | | | | | | | LABORATORIE | | | | | | S | | + + + + + + + + | Specimen | + + | Blood - Blood | | (substance) | + + + + + | Narrative | Performed At | + + + | INTERPRETATION: Prothrombin mutation analysis shows that | [facility] | | there is no mutation in either copy of the prothrombin gene at | DIAGNOSTIC | | nucleotide [id number]. Please note that this assay only detects the | LABORATORIES | | [id number] point mutation and therefore a normal result (in one or both | | | alleles) does not rule out an abnormal phenotype. Other mutations | | | responsible for a hypercoagulable state cannot be ruled out. Thank | | | you very much for your referral. Please do not hesitate to contact | | | us for additional information as to the ramifications of this test | | | result. We look forward to assisting you again in the future. As | | | per your request, DNA has been analyzed for the presence of [id number] | | | mutation in the prothrombin gene that has been associated with | | | elevated prothrombin levels and an increased risk of venous thrombosis | | | (1,2). For this assay, a specific region of the prothrombin gene | | | has been amplified by PCR and analyzed using a fluorescently labeled | | | sequence-specific probe. A fluorescent melting curve of the | | | hybridization kinetics of the sample and necessary controls has been | | | examined; the clinical interpretation is detailed above. | | | Heterozygotes for the common prothrombin [id number] mutation constitute | | | approximately 2% of the normal white population (1,2). | | | References: 1.) Nickyt et al. Blood 88, 1345-1547 (1996). 2.) Usha | | | et al. Circulation 99, 999-1004 (1999). 3.) Ana Mccarty, and | | | Seble. Amer J Clin Path 155, 439-47 (2000). This test was | | | developed and its performance characteristics determined by the [facility] | | | [facility]. It has | | | not been cleared or approved by the Food and Drug Administration. | | | FDA approval is not required for clinical use of this test, and | | | therefore validation was done as required under the requirements of | | | the Clinical Laboratory Improvement Act of 1988. The [facility] | | | Diagnostic [facility] is a fully | | | licensed and/or accredited clinical laboratory under CLIA, CAP, and | | | the [facility]. Please note that our lab now also offers a | | | clinical diagnostic test to directly detect the most common cause of | | | hereditary thrombotic predisposition, the R506Q Factor V Leiden | | | mutation. Should this patient be undergoing a hypercoagulable | | | evaluation, a Factor V mutation analysis may also be clinically | | | indicated. Reviewed and electronically signed by Vitaliy Pruett, | | | ,PhD 09/06/2015 1:29 PM | | + + + + + + + + | Performing | Address | City/State/[facility] | Phone Number | | Organization | | | | + + + + + | [facility] | [address] | [place] [address] | | | DIAGNOSTIC | [address] | | | | LABORATORIES | | | | + + + + + CHOLESTEROL TOTAL, PLASMA (09/05/2015 7:58 AM PST) + +---------+ + + + | Component | Value | Ref Range | Performed | Pathologist | | | | | At | Signature | + +---------+ + + + | CHOLESTEROL | 200 (H) | <200 mg/dL | [facility] | | | (LAB) | | | LABORATORY | | | | | | SERVICES, | | | | | | CORE | | + +---------+ + + + + + | Specimen | + + | Blood - Blood | | (substance) | + + + + + + + | Performing | Address | City/State/Zipcode | Phone Number | | Organization | | | | + + + + + | [facility] | [address] | [place] [address] | | | SERVICES, CORE | [address] | | | + + + + + LDH TOTAL, PLASMA (09/05/2015 7:58 AM PST) + +---------+ + + + | Component | Value | Ref Range | Performed | Pathologist | | | | | At | Signature | + +---------+ + + + | LD TOTAL, | 227 | <=250 U/L | [facility] | | | PLASMA | | | LABORATORY | | | | | | SERVICES, | | | | | | CORE | | + +---------+ + + + | LD CMNT | No Hemo | | [facility] | | | | | | LABORATORY | | | | | | SERVICES, | | | | | | CORE | | + +---------+ + + + + + | Specimen | + + | Blood - Blood | | (substance) | + + + + + + + | Performing | Address | City/State/Zipcode | Phone Number | | Organization | | | | + + + + + | [facility] | [address] | [place] [address] | | | SERVICES, CORE | [address] | | | + + + + + BILIRUBIN DIRECT (09/05/2015 7:58 AM PST) + +---------+ + + + | Component | Value | Ref Range | Performed | Pathologist | | | | | At | Signature | + +---------+ + + + | BILIRUBIN | 0.1 | 0.0 - 0.3 mg/dL | [facility] | | | DIRECT | | | LABORATORY | | | | | | SERVICES, | | | | | | CORE | | + +---------+ + + + | BILI D CMNT | No Hemo | | [facility] | | | | | | LABORATORY | | | | | | SERVICES, | | | | | | CORE | | + +---------+ + + + + + | Specimen | + + | Blood - Blood | | (substance) | + + + + + + + | Performing | Address | City/State/Zipcode | Phone Number | | Organization | | | | + + + + + | [facility] | [address] | [place] [address] | | | SERVICES, CORE | [address] | | | + + + + + URIC ACID, PLASMA (09/05/2015 7:58 AM PST) + +-------+ + + + | Component | Value | Ref Range | Performed | Pathologist | | | | | At | Signature | + +-------+ + + + | URIC ACID, | 6.5 | 3.7 - 8.0 mg/dL | [facility] | | | PLASMA | | | LABORATORY | | | (LAB) | | | SERVICES, | | | | | | CORE | | + +-------+ + + + + + | Specimen | + + | Blood - Blood | | (substance) | + + + + + + + | Performing | Address | City/State/Zipcode | Phone Number | | Organization | | | | + + + + + | [facility] | [address] | [place] [address] | | | ALIYAH MCKAY | [address] | | | + + + + + PHOSPHORUS, PLASMA (09/05/2015 7:58 AM PST) + +-------+ + + + | Component | Value | Ref Range | Performed | Pathologist | | | | | At | Signature | + +-------+ + + + | PHOSPHORUS, | 4.0 | 2.4 - 4.7 mg/dL | [facility] | | | PLASMA | | | LABORATORY | | | (LAB) | | | SERVICES, | | | | | | CORE | | + +-------+ + + + + + | Specimen | + + | Blood - Blood | | (substance) | + + + + + + + | Performing | Address | City/State/Zipcode | Phone Number | | Organization | | | | + + + + + | [facility] | [address] | [place] [address] | | | SERVICES, CORE | [address] | | | + + + + + MAGNESIUM, PLASMA (09/05/2015 7:58 AM PST) + +-------+ + + + | Component | Value | Ref Range | Performed | Pathologist | | | | | At | Signature | + +-------+ + + + | MAGNESIUM,P | 2.2 | 1.8 - 2.5 mg/dL | [facility] | | | LASMA | | | LABORATORY | | | | | | WOODY, | | | | | | CORE | | + +-------+ + + + + + | Specimen | + + | Blood - Blood | | (substance) | + + + + + + + | Performing | Address | City/State/Zipcode | Phone Number | | Organization | | | | + + + + + | [facility] | [address] | [place] [address] | | | SERVICES, CORE | [address] | | | + + + + + COMPLETE METABOLIC SET (NA,K,CL,CO2,BUN,CREAT,GLUC,CA,AST,ALT,BILI TOTAL,ALK PHOS,ALB,PROT TOTAL) (09/05/2015 7:58 AM PST) + + + + + + | Component | Value | Ref Range | Performed | Pathologist | | | | | At | Signature | + + + + + + | GLUCOSE, | 95 | 60 - 99 mg/dL | [facility] | | | PLASMA | | | LABORATORY | | | (LAB) | | | SERVICES, | | | | | | CORE | | + + + + + + | BUN, PLASMA | 44 (H) | 6 - 20 mg/dL | [facility] | | | (LAB) | | | LABORATORY | | | | | | SERVICES, | | | | | | CORE | | + + + + + + | CREATININE | 3.94 (H) | 0.70 - 1.30 | [facility] | | | PLASMA | | mg/dL | LABORATORY | | | (LAB) | | | SERVICES, | | | | | | CORE | | + + + + + + | EGFR | 20 (L) | >60 mL/min | [facility] | | | - | | | LABORATORY | | | NIGERIAN | | | SERVICES, | | | | | | CORE | | + + + + + + | EGFR NON | 17 (L) | >60 mL/min | [facility] | | | -NELLY | | | LABORATORY | | | RICAN | | | SERVICES, | | | | | | CORE | | + + + + + + | SODIUM, | 140 | 136 - 145 | [facility] | | | PLASMA | | mmol/L | LABORATORY | | | (LAB) | | | SERVICES, | | | | | | CORE | | + + + + + + | POTASSIUM, | 4.1 | 3.4 - 5.0 | [facility] | | | PLASMA | | mmol/L | LABORATORY | | | (LAB) | | | SERVICES, | | | | | | CORE | | + + + + + + | CHLORIDE, | 105 | 97 - 108 mmol/L | [facility] | | | PLASMA | | | LABORATORY | | | (LAB) | | | SERVICES, | | | | | | CORE | | + + + + + + | TOTAL CO2, | 27 | 21 - 32 mmol/L | [facility] | | | PLASMA | | | LABORATORY | | | (LAB) | | | SERVICES, | | | | | | CORE | | + + + + + + | CALCIUM, | 8.5 (L) | 8.6 - 10.2 | [facility] | | | PLASMA | | mg/dL | LABORATORY | | | (LAB) | | | SERVICES, | | | | | | CORE | | + + + + + + | BILIRUBIN | 0.5 | 0.3 - 1.2 mg/dL | [facility] | | | TOTAL | | | LABORATORY | | | | | | SERVICES, | | | | | | CORE | | + + + + + + | TOTAL | 7.0 | 6.4 - 8.2 g/dL | [facility] | | | PROTEIN, | | | LABORATORY | | | PLASMA | | | SERVICES, | | | (LAB) | | | CORE | | + + + + + + | ALBUMIN, | 4.0 | 3.5 - 4.7 g/dL | [facility] | | | PLASMA | | | LABORATORY | | | (LAB) | | | SERVICES, | | | | | | CORE | | + + + + + + | ALK PHOS | 62 | 53 - 128 U/L | [facility] | | | | | | LABORATORY | | | | | | SERVICES, | | | | | | CORE | | + + + + + + | AST(SGOT) | 20 | <=41 U/L | [facility] | | | | | | LABORATORY | | | | | | SERVICES, | | | | | | CORE | | + + + + + + | ALT (SGPT) | 26 | <=60 U/L | [facility] | | | | | | LABORATORY | | | | | | SERVICES, | | | | | | CORE | | + + + + + + | ANION | 8 | 4 - 11 mmol/L | [facility] | | | GAP(ALB | | | LABORATORY | | | CORRECTED) | | | SERVICES, | | | | | | CORE | | + + + + + + | POTASSIUM | No Hemo | | [facility] | | | CMNT | | | LABORATORY | | | | | | SERVICES, | | | | | | CORE | | + + + + + + | BILI T CMNT | No Hemo | | [facility] | | | | | | LABORATORY | | | | | | SERVICES, | | | | | | CORE | | + + + + + + | AST CMNT | No Hemo | | [facility] | | | | | | LABORATORY | | | | | | SERVICES, | | | | | | CORE | | + + + + + + | ANION GAP | 8 | mmol/L | [facility] | | | | | | LABORATORY | | | | | | SERVICES, | | | | | | CORE | | + + + + + + + + | Specimen | + + | Blood - Blood | | (substance) | + + + + + | Narrative | Performed At | + + + | GFR is estimated using the MDRD equation recommended by the | [facility] | | National Kidney Disease Education Program. Estimated GFR | LABORATORY | | Interpretive Information: <60 mL/min/1.73 sq m | SERVICES, CORE | | Chronic Kidney Disease <15 mL/min/1.73 sq m | | | Kidney Failure Estimated GFR greater that 60 mL/min/1.73 sq m is of | | | limited clinical value. The MDRD equation is not valid in the | | | following situations: - Patients under 18 years of age - Severe | | | malnutrition or obesity - Vegetarian diet - Rapidly changing kidney | | | function | | + + + + + + + + | Performing | Address | City/State/Zipcode | Phone Number | | Organization | | | | + + + + + | [facility] | [address] | [place] [address] | | | SERVICES, CORE | [address] | | | + + + + + LIT RBC GROUP TX KE, BLOOD (09/05/2015 7:58 AM PST) + + | Specimen | + + | Blood - Blood | | (substance) | + + + + + + + | Performing | Address | City/State/Zipcode | Phone Number | | Organization | | | | + + + + + | [facility] | [address] | [place], [place] | | | IMMUNOGENETICS/TRANS | [address] | | | | PLANT LABORATORY | | | | + + + + + LIT HLA-A LOW RES-ESTEVAN (09/05/2015 7:58 AM PST) + + | Specimen | + + | Blood - Blood | | (substance) | + + + + + + + | Performing | Address | City/State/Zipcode | Phone Number | | Organization | | | | + + + + + | [facility] - | [address] | [place], [place] | | | IMMUNOGENETICS/TRANS | [address] | | | | PLANT LABORATORY | | | | + + + + + LIT HLA-B MARI RES-ESTEVAN (09/05/2015 7:58 AM PST) + + | Specimen | + + | Blood - Blood | | (substance) | + + + + + + + | Performing | Address | City/State/Zipcode | Phone Number | | Organization | | | | + + + + + | [facility] - | [address], | [place], [place] | | | IMMUNOGENETICS/TRANS | [address] | | | | PLANT LABORATORY | | | | + + + + + LIT HLA-DR LOW RES-KE (09/05/2015 7:58 AM PST) + + | Specimen | + + | Blood - Blood | | (substance) | + + + + + + + | Performing | Address | City/State/Zipcode | Phone Number | | Organization | | | | + + + + + | [facility] - | [address] | [place] [address] | | | IMMUNOGENETICS/TRANS | [address] | | | | PLANT LABORATORY | | | | + + + + + LIT FLOW HLA AB PRA SCREEN I/II KE (09/05/2015 7:58 AM PST) + + | Specimen | + + | Blood - Blood | | (substance) | + + + + + + + | Performing | Address | City/State/Zipcode | Phone Number | | Organization | | | | + + + + + | [facility] - | [address] | [place] [address] | | | IMMUNOGENETICS/TRANS | [address] | | | | PLANT LABORATORY | | | | + + + + + LIT HLA-DQ LOW RES-ESTEVAN (09/05/2015 7:58 AM PST) + + | Specimen | + + | Blood - Blood | | (substance) | + + + + + + + | Performing | Address | City/State/Zipcode | Phone Number | | Organization | | | | + + + + + | [facility] | [address], | [place] [address] | | | IMMUNOGENETICS/TRANS | [address] | | | | PLANT LABORATORY | | | | + + + + + documented in this encounter Visit Diagnoses + + | Diagnosis | + + | Chronic kidney disease, stage III (moderate) (HCC) Chronic kidney disease, Stage III | | (moderate) | + + | Acute interstitial nephritis Other acute glomerulonephritis with other specified | | pathological lesion in kidney | + + documented in this encounter"
--- OUTSIDE RECORDS SUMMARY | ~2019-12-22 | XMS | Encounter Summary ---
Demographics + + + | Address | [address] [place] [address] | | | [place] [address] | + + + | Home Phone | | + + + | Preferred Language | Unknown | + + + | Marital Status | | + + + | Roman Catholic Affiliation | CHR | + + [...] Team Providers + +------+ + | Care Learning Support Services Director Name | Role | Phone | + +------+ + | Jt Perkins MD | PCP | | + +------+ + Reason for Visit + + + | Reason | Comments | + + + | Covid19 Screening | | + + + Encounter Details +--------+ + + + + | Date | Type | Department | Care Team | Description | +--------+ + + + + | 12/02/ | Clinical | Screening Clinic | | Covid19 Screening | | 2019 | Support | [facility] [address] | | | | | Staff | Drive [place], [place] | | | | | | [address] | | | +--------+ + + + [...] + + documented as of this encounter Patient Instructions Patient Instructions Dick Hairston RN - 12/03/2019 2:45 PM PDT Please refer to the paper patient education information that you received at the [facility] site. documented in this encounter Progress Notes Dick Hairston RN - 12/03/2019 2:45 PM PDT Seema Oneill was screened for COVID-19 symptoms and exposure at [facility]. Clinical criteria for testing met? : Yes, patient qualifies for COVID-19 testing documented in this en counter Plan of Treatment Not on filedocumented as of this encounter Procedures + +--------+ + + + | Procedure Name | Priori | Date/Time | Associated Diagnosis | Comments | | | ty | | | | + +--------+ + + + | COVID-19 | Routin | 12/03/2019 | Suspected 2019 | Results for this | | | e | 2:38 PM | novel coronavirus | procedure are in the | | | | PDT | infection | results section. | + +--------+ + + + documented in this encounter Results COVID-19 (12/03/2019 2:38 PM PDT) + + + + + + | Component | Value | Ref Range | Performed | Pathologist | | | | | At | Signature | + + + + + + | COVID-19 | Not Detected | Not Detected | [facility] | | | | | | MOLECULAR | | | | | | MICROBIOLIG | | | | | | Y LAB | | + + + + + + + + | Specimen | + + | Swab - Oropharyngeal | + + + + + | Narrative | Performed At | + + + | Not Detected results do not preclude SARS-CoV-2 infection and should | [facility] | | not be used as the sole basis for treatment or other patient | MOLECULAR | | management decisions. Not Detected results must be combined with | MICROBIOLIGY | | clinical observations, patient history, and epidemiological | LAB | | information. Analyte specific reagents are used in many laboratory | | | tests necessary for standard medical care. This test was developed and | | | its performance characteristics determined by [employer] It | | | has not been cleared or approved by the US Food and Drug | | | Administration (FDA). FDA does not require this test to go through | | | premarket FDA review. This test is used for clinical purposes. It | | | should not be regarded as investigational or for research. The | | | laboratory is certified under the Clinical Laboratory Improvement | | | Amendments (CLIA) as qualified to perform high complexity clinical | | | laboratory testing. | | + + + + + + + + | Performing | Address | City/State/Zipcode | Phone Number | | Organization | | | | + + + + + | [facility] | [address] | [place] [address] | | | MICROBIOLLMY LAB | [address] | | | + + + + + documented in this encounter Visit Diagnoses + + | Diagnosis | + + | Suspected 2019 novel coronavirus infection - Primary | + + documented in this encounter"
--- OUTSIDE RECORDS SUMMARY | ~2019-12-22 | XMS | Encounter Summary ---
Demographics + + + | Address | [address] [place] [address] | | | [place] [address] | + + + | Home Phone [...] Team Providers + +------+ + | Care Head Of Digital Name | Role | Phone | + +------+ + | Hai Holman MD | PCP | | + +------+ + Reason for Visit + + + | Reason | Comments | + + + | Lab Results | MDRD 6: 3 | + + + Encounter Details +--------+ + + + + | Date | Type | Department | Care Team | Description | +--------+ + + + + | 09/26/ | Abstract | Clinical | Santos Lorenzo, | Lab Results (MDRD 6: | | 2016 | | Transplant Services | [address] | 09/17/16) | | | | [address] | [address] | | | | | [place], | [place], [place] | | | | | [place] [address] | [address] | | | | | [phone] | [phone] | | | | | | | [...] + | MDRD 6 | Routin | 09/17/2016 | | Results for this | | | e | | | procedure are in the | | | | | | results section. | + +--------+ + + + documented in this encounter Results MDRD 6 (09/17/2016) + + + + + + | Component | Value | Ref Range | Performed | Pathologist | | | | | At | Signature | + + + + + + | MDRD6 | 25.70 | | NON [facility] | | | | | | LAB | | + + + + + + | BUN, PLASMA | 28 (H) | mg/dL | NON [facility] | | | (LAB) | | | LAB | | + + + + + + | CREATININE | 3.07 (H) | mg/dL | NON [facility] | [...] Performed At | + + + | [facility] | NON [facility] | | [address] [address] | | |[place] [address] | | + + + + +---------+ + + | Performing | Address | City/State/Zipcode | Phone Number | | Organization | | | | + +---------+ + + | NON [facility] | | | | + +---------+ + + documented in this encounter Visit Diagnoses Not on filedocumented in this encounter"
--- OUTSIDE RECORDS SUMMARY | ~2019-12-22 | XMS | Encounter Summary ---
Demographics + + + | Address | [address] | | | [place] [address] | + + + | Home Phone [...] [place], [place] | | | | | [address] | | + + + + + | Misty Boateng | ECON | [address] | | | | | [place], [place] | | | | | [address] | | + + + + + Care Team Providers + +------+ + | Care Accounts Specialist Name | Role | Phone | + +------+ + PCP | Unavailable | + +------+ + Encounter Details +--------+ + + + + | Date | Type | Department | Care Team | Description | +--------+ + + + + | 07/20/ | Hospital | [facility] | Conversion | Diagnosis unknown | | 2017 | Encounter | CONVERSION [address] | Transaction, | | | | | [address] | Provider Unknown | | | | | [place], [place] | [phone] | | | | | [phone] | (Fax) | | | | | [phone] | | | +--------+ + + + [...] + + documented as of this encounter Medications at Time of Discharge + + + +---------+ + + | Medication | Sig | Dispensed | Refills | Start | End Date | | | | | | Date | | + + + +---------+ + + | Adalimumab (HUMIRA | Inject 40 mg under | | 0 | | | | SC) | the skin every 14 | | | | | | | days. | | | | | + + [...] + + + +---------+ + + | azaTHIOprine | Take 100 mg by mouth | | 0 | | | | (IMURAN) 50 mg | Daily. Tapering | | | | 9 | | tablet | off, will be | | | | | | | finished on Thursday. | | | | | + + + +---------+ + + | b complex-vitamin | Take 1 tablet by | 90 | 4 | 10/29/19 | | | c-folic acid | mouth Daily. | tablet | | 16 | 7 | | (NEPHRO-ANDI) tablet | | | | | | + + + +---------+ + + | carvedilol (COREG) | Take 1 tablet by | 60 | 11 | 07/16/20 | | | 6.25 mg tablet | mouth 2 times daily. | tablet | | 16 | 8 | + + + +---------+ + + | cholestyramine | Take 4 g by mouth | | 0 | | | | light (QUESTRAN) 4 g | nightly as needed. | | | | 7 | | packet | | | | | | + + + +---------+ + + | citalopram | Take 40 mg by mouth | | 0 | | | | (CELEXA) 40 mg | Daily. | | | | 8 | | tablet | | | | | | + + + +---------+ + + | gentamicin 0.1% | APPLY TO PD SITE | 15 g | 11 | 04/03/20 | | | cream | DAILY | | | 16 | 7 | + + + +---------+ + + | levothyroxine | Take 75 mcg by mouth | | 0 | | | | (SYNTHROID, | every morning | | | | 0 | | LEVOTHROID) 75 MCG | (before breakfast). | | | | | | tablet | | | | | | + + + +---------+ + + | Peritoneal | See Admin | | 0 | 07/16/20 | | | [facility] | Instructions. 2000 | | | 16 | 7 | | (DIALYSATE LOW | mL x 2 exchanges, | | | | | | CALCIUM WITH 1.5% | last fill 1000 mL | | | | | | DEXTROSE, DIANEAL | | | | | | | ULTRABAG,) 344 | | | | | | | MOSM/L | | | | | | | SOLNIndications: End | | | | | | | stage renal disease | | | | | | | (HCC), Essential | | | | | | | hypertension, | | | | | | | benign, Lower | | | | | | | abdominal pain | | | | | | + + + +---------+ + + documented as of this encounter Plan of Treatment +--------+---------+ + + + | Date | Type | Specialty | Care Team | Description | +--------+---------+ + + + | 03/20/ | Office | Nephrology | Christine Martinez W, | | | 2019 | Visit | | [address] | | | | | | [address] [place] | | | | | | [place] [address] | | | | | | [phone] | | | | | | | | +--------+---------+ + + + documented as of this encounter Procedures + +--------+ + + + | Procedure Name | Priori | Date/Time | Associated Diagnosis | Comments | | | ty | | | | + +--------+ + + + | MRI BRAIN W CONTRAST | Routin | 04/25/2002 | | Results for this | | | e | 2:21 AM | | procedure are in the | | | | PDT | | results section. | + +--------+ + + + documented in this encounter Results MRI Brain w Contrast (04/25/2002 2:21 AM PDT) + + | Specimen | + + | | + + + + + | Narrative | Performed At | + + + | This is a non-reportable procedure without a radiologist report and | | | is used for image storage only | | + + + + + | Procedure Note | + + | Kelvin Larsen Conversion - 03/03/2019 7:30 AM PDT This is a non-reportable procedure | | without a radiologist report and isused for image storage only | + + documented in this encounter Visit Diagnoses + + | Diagnosis | + + | Diagnosis unknown Other unknown and unspecified cause of morbidity or mortality | + + documented in this encounter"
--- OUTSIDE RECORDS SUMMARY | ~2019-12-22 | XMS | Encounter Summary ---
Demographics + + + | Address | [address] [place] [address] | | | [place] [address] | + + + | Home Phone | | + + + | Preferred Language | Unknown | + + + | Marital Status | | + + + | Pentecostalism Affiliation | CHR | + + + [...] Team Providers + +------+ + | Care Bobbin Cleaner Hand Name | Role | Phone | [...] + + + + | 04/21/ | Telephone | Clinical | Thi Aden, | Tx Recommendation | | 2016 | | Transplant Services | RN [address] [facility] | Tracking | | | | [address] | [address] | | | | | Kait Barrios [place], | [place], [place] | | | | | [place] [address] | [address] | | | | | [phone] | | | +--------+ + + + [...]
--- OUTSIDE RECORDS SUMMARY | ~2019-12-22 | XMS | Encounter Summary ---
Demographics + + + | Address | [address] | | | [place] [address] | + + + | Home Phone | | + + + | Preferred Language | Unknown | + + + | Marital Status | | + + + | Synagogue Affiliation | 1041 | + + + | Race | Unknown | + + + | Ethnic Group | Unknown | + + + Author + + + | Author | [facility] | | | and [place] | + + + | Organization | [facility] | | | and [place] | + + + | Address | Unknown | + + + | Phone | Unavailable | + + + Support + + + + + | Name | Relationship | Address | Phone | + + + + + | Ryan Oneill | ECON | [place], [place] | | | | | [address] | | + + + + + | Misty Boateng | ECON | [address] | | | | | [place], [place] | | | | | [address] | | + + + + + Care Team Providers + +------+ + | Care Drencher Name | Role | Phone | + +------+ + PCP | Unavailable | + +------+ + Encounter Details +--------+ + + + + | Date | Type | Department | Care Team | Description | +--------+ + + + + | 09/05/ | Abstract | [facility] [place] | Peace Drake | | | 2016 | | NEPHROLOGY [address] | M, DO [address] | | | | | [address] | [place] | | | | | [place], [place] | [place], [place] | | | | | [address] | [address] | | | | | [phone] | | | +--------+ + + + [...] + documented as of this encounter Progress Mandy Donaldson - 09/05/2016 1:04 PM PSToutside record: Letter from [facility]. Sent to scan. documented in this encoun ter Plan of Treatment +--------+---------+ + + + | Date | Type | Specialty | Care Team | Description | +--------+---------+ + + + | 03/20/ | Office | Nephrology | Christine Martinez, | | | 2019 | Visit | | MD Monica Manzanares | | | | | | [address] [place] | | | | | | [place] [address] | | | | | | [phone] | | | | | | | | +--------+---------+ + + + documented as of this encounter Visit Diagnoses Not on filedocumented in this encounter"
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
--- OUTSIDE RECORDS SUMMARY | ~2019-12-22 | XMS | Encounter Summary ---
Demographics + + + | Address | [address] [place] [address] | | | [place] [address] | + + + | Home Phone | | + + + | Preferred Language | Unknown | + + + | Marital Status | | + + + | Mormonism Affiliation | CHR | + + + | Race | White | + + + | Ethnic Group | Not or | + + + Author + + + | Author | [facility] | + + + | Organization | [facility] | + + + | Address | Unknown | + + + | Phone | Unavailable | + + + Support + + +---------+ + | Name | Relationship | Address | Phone | + + +---------+ + | Misty Oneill | ECON | Unknown | | + + +---------+ + Care Team Providers + +------+ + | Care Curtain Cleaner Name | Role | Phone | + +------+ + | Hai Holman MD | PCP | | + +------+ + Reason for Visit + + + | Reason | Comments | + + + | Care Coordination | care everywhere refresh | + + + Encounter Details +--------+ + + + + | Date | Type | Department | Care Team | Description | +--------+ + + + + | 11/08/ | Abstract | Clinical | Thi Aden, | Care Coordination | | 2016 | | Transplant Services | RN [address] | (care everywhere | | | | [address] | [address] | refresh) | | | | [place], | [place], [place] | | | | | [place] [address] | [address] | | | | | [phone] | | | +--------+ + + + [...]
--- OUTSIDE RECORDS SUMMARY | ~2019-12-22 | XMS | Encounter Summary ---
Demographics + + + | Address | [address] | | | [place] [address] | + + + | Home Phone | | + + + | Preferred Language | Unknown | + + + | Marital Status | | + + + | Baptist Affiliation | 1041 | + + + [...] [place], [place] | | | | | [address] | | + + + + + | Misty Boateng | ECON | [address] | | | | | [place] | | | | | [address] | | + + + + + Care Team Providers + +------+ + | Care Bankruptcy Processor Name | Role | Phone | + [...] | | | | | dialysis | [address] | [address] | | | | | catheter | [address] [facility] | [place], [place] | | | | | (HCC) CKD | [place], [place] | [address] | | | | | (chronic | [address] | Phone: | | | | | kidney | Phone: | [phone] | | | | | disease) | [phone] | Fax: | | | | | stage 4, GFR | Fax: | [phone] | | | | | 15-29 | [phone] | | | | | | ml/min ([facility]) | | | +--------+ + + + + + Encounter Details +--------+ + + + + | Date | Type | Department | Care Team | Description | +--------+ + + + + | 10/20/ | Orders Only | [facility] [place] | Christine Martinez W, | Presence of | | 2017 | | NEPHROLOGY [address] | [address] | peritoneal dialysis | | | | [address] | [address] [place] | catheter (HCC) | | | | [place], [place] | [place] [address] | (Primary Dx); CKD | | | | [address] | [phone] | (chronic kidney | | | | [phone] | | disease) stage 4, | | [...] | | | | | | [place] [address] | | | | | | [phone] | | | | | | | [...] | | Referral | | | catheter ([facility]) CKD | | | | | | (chronic kidney | | | | | | disease) stage 4, | | | | | | GFR 15-29 ml/min | | | | | | ([facility]) | | + + +--------+ + + [...]
--- OUTSIDE RECORDS SUMMARY | ~2019-12-22 | XMS | Encounter Summary ---
Demographics + + + | Address | [address] [place] [address] | | | [place] [address] | + + + | Home Phone | | + + + | Preferred Language | Unknown | + + + | Marital Status | | + + + | Adventist Affiliation | CHR | + + + [...] Team Providers + +------+ + | Care Nuclear Plant Construction Worker Name | Role | Phone | + +------+ + | Jt Perkins MD | PCP | | + +------+ + Reason for Visit + + + | Reason | Comments | + + + | KP Waitlist | Colonoscopy reminder | + + + Encounter Details +--------+ + + + + | Date | Type | Department | Care Team | Description | +--------+ + + + + | 10/18/ | Documentati | Clinical | Thi Aden, | Waitlist | | 2019 | on | Transplant Services | RN [address] | (Colonoscopy | | | | [address] | [address] | reminder) | | | | [place], | [place], [place] | | | | | [place] [address] | [address] | | | | | [phone] | | | +--------+ + + + [...]
--- OUTSIDE RECORDS SUMMARY | ~2019-12-22 | XMS | Clinical Summary ---
Demographics + + + | Address | [address] [facility] | | | [place] [address] | + + + | Home Phone | | + + + | Preferred Language | Unknown | + + + | Marital Status | | + + + | Holiness Affiliation | 1041 | + + + | Race | Unknown | + + + | Ethnic Group | Unknown | + + + Author + + + | Author | [facility] (Historical as of | | | 03-05-19) | + + + | Organization | [facility] (Historical as of | | | 03-05-19) | + + + | Address | Unknown | + + + | Phone | Unavailable | + + + Support + + + + + | Name | Relationship | Address | Phone | + + + + + | Brittney Oneill | ECON | Unknown | | + + + + + | Ryan Oneill | ECON | Unknown | | + + + + + | Edita Oneill | ECON | [address] | | | | | [place] | | | | | [address] | | + + + + + | David Perez | ECON | Unknown | | + + + + + Care Team Providers + +------+ + | Care Commercial Decorator Name | Role | Phone | + +------+ + | Bj Holman MD | PP | | + +------+ + Allergies + [...] + + + Current Medications + + +--------+---------+------+------+-------+ | Prescription | Sig. | Disp. | Refills | Star | End | Statu | | | | | | t | Date | s | | | | | | Date | | | + + +--------+---------+------+------+-------+ | adalimumab (HUMIRA | Inject 40 mg into | | | | | Activ | | PEN) 40 MG/0.8ML | the skin every 14 | | | | | e | | injection | (fourteen) days. | | | | | | + + +--------+---------+------+------+-------+ | carvedilol (COREG) | Take 6.25 mg by | | | | | Activ | | 12.5 MG tablet | mouth 2 (two) times | | | | | e | | | daily with meals. | | | | | | + + +--------+---------+------+------+-------+ | Pantoprazole | Take 40 mg by mouth | | | | | Activ | | Sodium (PROTONIX PO) | daily. | | | | | e | + + +--------+---------+------+------+-------+ | ascorbic acid | Take 1 tablet by | 30 | 11 | 03/21 | | Activ | | (VITAMIN C) 500 MG | mouth daily. | tablet | | 11/06 | | e | | tablet | | | | 14 | | | + + +--------+---------+------+------+-------+ | azaTHIOprine | Take by mouth | | | | | Activ | | (IMURAN) 50 MG | daily. 100 mg in the | | | | | e | | tablet | morning and 25 mg | | | | | | | | at night. | | | | | | + + +--------+---------+------+------+-------+ | B Hvpntuh-W-Asnbu | Take by mouth. | | | | | Activ | | Acid (NEPHRO-ANDI | | | | | | e | | PO) | | | | | | | + + +--------+---------+------+------+-------+ | levothyroxine | Take 75 mcg by mouth | | | | | Activ | | (SYNTHROID) 25 MCG | every morning | | | | | e | | tablet | before breakfast. | | | | | | + + +--------+---------+------+------+-------+ | citalopram | Take 40 mg by mouth | | | | | Activ | | (CELEXA) 40 MG | daily. 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 | + + + | Migraine without aura and without status migrainosus, not | 10/18/2015 | | intractable | | + + + | CKD (chronic kidney disease), stage III | 04/10/2014 | + + + | Hypokalemia | 04/09/2014 | + + + | Anemia, unspecified | 04/09/2014 | + + + | Renal failure (ARF), acute on chronic | 04/09/2014 | + + + | Hematuria, unspecified | 04/08/2014 | + + + | Fractured kidney | 04/08/2014 | + + + | HTN (hypertension) | 09/19/2013 | + + + | Hypothyroidism | 10/08/2012 | + + + | Depression | 10/08/2012 | + + + | CKD (chronic kidney disease), stage III | 04/14/2011 | + + + + + | Overview: Due to interstitial nephritis. | + + + + + | Interstitial nephritis | 04/14/2011 | + + + + + | Overview: Biopsy-proven. | + + + + + | Crohn's disease (HCC) | 04/14/2011 | + + + | Vitamin D deficiency | 04/14/2011 | + + + Family History + + +------+ + | Medical History | Relation | Name | Comments | + + +------+ + | Hypertension | Father | | | + + +------+ + | Hypertension | Mother | | | + + +------+ + | Migraines | Mother | | | + + +------+ + | Other (see comments) | Mother | | peptic ulcer disease | + + +------+ + | Heart disease | Paternal | | | | | Grandfath | | | | | er | | | + + +------+ + | Hypertension | Paternal | | | | | Grandfath | | | | | er | | | + + +------+ + | Hypertension | Paternal | | | | | Grandmoth | | | | | er | | | + + +------+ + | Stroke | Neg Hx | | | + + +------+ + + +------+--------+ + | Relation | Name | Status | Comments | + +------+--------+ + | Father | | Alive | | + +------+--------+ + | Mother | | Alive | | + +------+--------+ + | Paternal Grandfather | | | | + +------+--------+ + | Paternal Grandmother | | | | + +------+--------+ + Social History + +-------+ +--------+ + | Tobacco Use | Types | Packs/Day | Years | Date | | | | | Used | | + +-------+ +--------+ + | Former Smoker | | 1 | 20 | Quit: 07/20/2001 | + +-------+ +--------+ + + +---+---+---+ | Smokeless Tobacco: | | | | | Former User | | | | + +---+---+---+ + + +---------+ + | Alcohol Use | Drinks/We | oz/Week | Comments | | | ek | | | + + +---------+ + | No | | | not since diagnoed with kiney failure | + + +---------+ + + + + | Sex Assigned at | Date Recorded | | | | + + + | Not on file | | + + + Last Filed Vital Signs + + + + | Vital Sign | Reading | Time Taken | + + + + | Blood Pressure | 121/76 | 11/28/2016 10:30 AM PDT | + + + + | Pulse | 65 | 11/28/2016 10:30 AM PDT | + + + + | Temperature | 36.6 C (97.8 F) | 11/28/2016 10:30 AM PDT | + + + + | Respiratory Rate | 16 | 11/28/2016 10:30 AM PDT | + + + + | Oxygen Saturation | 100% | 11/28/2016 10:30 AM PDT | + + + + | Inhaled Oxygen | - | - | | Concentration | | | + + + + | Weight | 84.1 kg (185 lb 6.5 | 11/28/2016 8:07 AM PDT | | | oz) | | + + + + | Height | 182.9 cm (6') | 11/28/2016 8:07 AM PDT | + + + + | Body Mass Index | 25.15 | 11/28/2016 8:07 AM PDT | + + + + Plan of Treatment + + + + + | Health Maintenance | Due Date | Last Done | Comments | + + + + + | Vaccine: Influenza | | | | | (Season Ended) | 0 | | | + + + + + | Vaccine: | | 12/11/2015 | | | Dtap/Tdap/Td (2 - | 6 | | | | Td) | | | | + + + + + Implants + +------+--------+ +--------+--------+--------+ | Implanted | Type | Area | Manufacture | Device | Expira | Model | | | | | r | | tion | / | | | | | | Identi | Date | Serial | | | | | | fier | | / Lot | + +------+--------+ +--------+--------+--------+ | Screw Cortex Slf/Tap Star Ss | | Right: | Synthes | | | 201.76 | | 2.4x14mm - [id number]: | | Wrist | | | | 4 / / | | Qty: 2 on 04/08/2014 by | | | | | | | | Dick Hines MD | | | | | | | + +------+--------+ +--------+--------+--------+ | Screw Locking Va Ss Star | | Right: | SYNTHES | | | 02.210 | | 2.4x18mm - [id number]: | | Wrist | | | | [...] | | | .630 / | | [id number]: Qty: 1 on | | | | | | / | | 04/08/2014 by Dick Hines | | | | | | | | MD Jonathan | | | | | | | + +------+--------+ +--------+--------+--------+ | Screw Locking Va Ss Star | | Right: | Synthes | | | 02.210 | | 2.4x16mm - [id number]: | | Wrist | | | | .116 / | | Qty: 2 on 04/08/2014 by | | | | | | / | | Dick Hines MD | | | | | | | + +------+--------+ +--------+--------+--------+ | Screw Locking Va Ss Star | | Right: | Synthes | | | 02.210 | | 2.4x14mm - [id number]: | | Wrist | | | | .114 / | | Qty: 1 on 04/08/2014 by | | | | | | / | | Dick Hines MD | | | | | | | + +------+--------+ +--------+--------+--------+ Results Not on filefrom Last 3 Months Insurance + +--------+ +------+-------+ + | Payer | Benefi | Subscriber | Type | Phone | Address | | | t Plan | ID | | | | | | / | | | | | | | Group | | | | | + +--------+ +------+-------+ + | AUTO INSURANCE | STATE | [id number] | | | | | | FARM | | | | | | | AUTO | | | | | | | INSURA | | | | | | | NCE | | | | | + +--------+ +------+-------+ + | PREMERA | PREMER | [id number] | | | [address] [address] | | | A | [address] | | | [place], [place] | | | [place] | | | | [phone] | | | [place] | | | | | | | [place] | | | | | + +--------+ +------+-------+ + | PREMERA | PROVID | [id number] | | | [address] [address] | | | ENCE | 1 | | | [place], [place] | | | HEALTH | | | | [phone] | | | PLAN | | | | | + +--------+ +------+-------+ + | COMMERCIAL OTHER | COMMER | [id number] | | | | | | CIAL | | | | | | | GENERI | | | | | | | C PLAN | | | | | + +--------+ +------+-------+ + | COMMERCIAL OTHER | COMMER | [id number] | | | | | | CIAL | | | | | | | GENERI | | | | | | | C PLAN | | | | | + +--------+ +------+-------+ + | COMMERCIAL OTHER | COMMER | [id number] | | | | | | CIAL | | | | | | | GENERI | | | | | | | C PLAN | | | | | + +--------+ +------+-------+ + + +--------+ +--------+ + + | Guarantor Name | Accoun | Relation to | Date | Phone | Billing Address | | | t Type | Patient | of | | | | | | | | | | + +--------+ +--------+ + + | DASHA ONEILL | Person | Self [birth year] Home: | [address] | | | al/Fam | | 1971 | [phone] | [place] | | | greg | | | [phone] | + +--------+ +--------+ + + | DASHA ONEILL | Third | Self [birth year] | Home: | [address] | | | [employer] | | 1971 | [phone] | [place] | | | [place] | | | [phone] | [phone] | | | ity | | | | | + +--------+ +--------+ + +
--- OUTSIDE RECORDS SUMMARY | ~2019-12-22 | XMS | Encounter Summary ---
Demographics + + + | Address | [address] | | | [place] [address] | + + + | Home Phone | | + + + | Preferred Language | Unknown | + + + | Marital Status | | + + + | Sikhism Affiliation | 1041 | + + + | Race | Unknown | + + + | Ethnic Group | Unknown | + + + Author + + + | Author | [facility] | | | and [place] | + + + | Organization | [facility] | | | and [place] | + + + | Address | Unknown | + + + | Phone | Unavailable | + + + Support + + + + + | Name | Relationship | Address | Phone | + + + + + | Ryan Oneill | ECON | [place], [place] | | | | | [address] | | + + + + + | Misty Boateng | ECON | [address] | | | | | [place], [place] | | | | | [address] | | + + + + + Care Team Providers + +------+ + | Care Biodiesel Engine Specialist Name | Role | Phone | + +------+ + PCP | Unavailable | + +------+ + Encounter Details +--------+ + + + + | Date | Type | Department | Care Team | Description | +--------+ + + + + | 01/08/ | Abstract | [facility] | Christine Martinez W, | | | 2016 | | NEPHROLOGY [address] | | | | | [address] | [address] [place] | | | | | [place], [place] | [place] [address] | | | | | [address] | [phone] | | | | | [phone] | | | +--------+ + + + [...] | | | | | [place] [address] | | | | | | [phone] | | | | | | | | +--------+---------+ + + + documented as of this encounter Procedures + +--------+ + + + | Procedure Name | Priori | Date/Time | Associated Diagnosis | Comments | | | ty | | | | + +--------+ + + + | EXTERNAL LAB: ANIVAL | Routin | 01/07/2017 | | Results for this | | | e | | | procedure are in the | | | | | | results section. | + +--------+ + + + | EXTERNAL LAB: | Routin | 01/07/2017 | | Results for this | | GLUCOSE | e | | | procedure are in the | | | | | | results section. | + +--------+ + + + | EXTERNAL LAB: ROSHNI | Routin | 01/07/2017 | | Results for this | | | e | | | procedure are in the | | | | | | results section. | + +--------+ + + + | EXTERNAL LAB: AST | Routin | 01/07/2017 | | Results for this | | | e | | | procedure are in the | | | | | | results section. | + +--------+ + + + | EXTERNAL LAB: | Routin | 01/07/2017 | | Results for this | | ALKALINE PHOSPHATASE | e | | | procedure are in the | | | | | | results section. | + +--------+ + + + | EXTERNAL LAB: | Routin | 01/07/2017 | | Results for this | | BILIRUBIN, TOTAL | e | | | procedure are in the | | | | | | results section. | + +--------+ + + + | EXTERNAL LAB: | Routin | 01/07/2017 | | Results for this | | ALBUMIN | e | | | procedure are in the | | | | | | results section. | + +--------+ + + + | EXTERNAL LAB: | Routin | 01/07/2017 | | Results for this | | PROTEIN, TOTAL | e | | | procedure are in the | | | | | | results section. | + +--------+ + + + | EXTERNAL LAB: | Routin | 01/07/2017 | | Results for this | | CALCIUM | e | | | procedure are in the | | | | | | results section. | + +--------+ + + + | EXTERNAL LAB: CARBON | Routin | 01/07/2017 | | Results for this | | DIOXIDE | e | | | procedure are in the | | | | | | results section. | + +--------+ + + + | EXTERNAL LAB: | Routin | 01/07/2017 | | Results for this | | CHLORIDE | e | | | procedure are in the | | | | | | results section. | + +--------+ + + + | EXTERNAL LAB: | Routin | 01/07/2017 | | Results for this | | POTASSIUM | e | | | procedure are in the | | | | | | results section. | + +--------+ + + + | EXTERNAL LAB: SODIUM | Routin | 01/07/2017 | | Results for this | | | e | | | procedure are in the | | | | | | results section. | + +--------+ + + + | EXTERNAL LAB: | Routin | 01/07/2017 | | Results for this | | URINALYSIS | e | | | procedure are in the | | | | | | results section. | + +--------+ + + + | EXTERNAL LAB: CBC | Routin | 01/07/2017 | | Results for this | | | e | | | procedure are in the | | | | | | results section. | + +--------+ + + + | EXTERNAL LAB: EGFR | Routin | 01/07/2017 | | Results for this | | | e | | | procedure are in the | | | | | | results section. | + +--------+ + + + | EXTERNAL LAB: | Routin | 01/07/2017 | | Results for this | | CREATININE | e | | | procedure are in the | | | | | | results section. | + +--------+ + + + | ASSAY OF CK (CPK) | Routin | 01/07/2017 | | Results for this | | | e | | | procedure are in the | | | | | | results section. | + +--------+ + + + documented in this encounter Results ASSAY OF CK (CPK) (01/07/2017) + + + + + + | Component | Value | Ref Range | Performed | Pathologist | | | | | At | Signature | + + + + + + | CK, Total | 49,672 (A) | 24 - 195 U/L | | | + + + + + + + + | Specimen | + + | | + + External Lab: ANIVAL (01/07/2017) + +--------+ + + + | Component | Value | Ref Range | Performed | Pathologist | | | | | At | Signature | + +--------+ + + + | BUN, | 28 (A) | 6 - 23 | EXTERNAL [...] + +---------+ + + External Lab: Glucose (01/07/2017) + +-------+ + + + | Component | Value | Ref Range | Performed | Pathologist | | | | | At | Signature | + +-------+ + + + | Glucose, | 96 | 70 - 100 | EXTERNAL | [...] + +---------+ + + External Lab: ALT (01/07/2017) + +---------+ + + + | Component | Value | Ref Range | Performed | Pathologist | | | | | At | Signature | + +---------+ + + + | ALT, | 228 (A) | 7 - 52 | EXTERNAL | | | External | [...] + +---------+ + + External Lab: AST (01/07/2017) + +---------+ + + + | Component | Value | Ref Range | Performed | Pathologist | | | | | At | Signature | + +---------+ + + + | OBDULIO, | 778 (A) | 13 - 39 | EXTERNAL | | | External | [...] +---------+ + + External Lab: Alkaline Phosphatase (01/07/2017) + +-------+ + + + | Component | Value | Ref Range | Performed | Pathologist | | | | | At | Signature | + +-------+ + + + | ALP, | 53 | 31 - 120 | EXTERNAL | | | External | [...] +---------+ + + External Lab: Bilirubin, Total (01/07/2017) + +-------+ + + + | Component | Value | Ref Range | Performed | Pathologist | | | | | At | Signature | + +-------+ + + + | Bilirubin, | 0.8 | 0 - 1.2 | EXTERNAL | | | Total, | [...] + +---------+ + + External Lab: Albumin (01/07/2017) + +-------+ + + + | Component [...] +---------+ + + External Lab: Protein, Total (01/07/2017) + +-------+ + + + | Component | Value | Ref Range | Performed | Pathologist | | | | | At | Signature | + +-------+ + + + | Protein, | 6.5 | 6 - 8 | EXTERNAL | | | Total, | [...] + +---------+ + + External Lab: Calcium (01/07/2017) + +-------+ + + + | Component [...] +---------+ + + External Lab: Carbon Dioxide (01/07/2017) + +-------+ + + + | Component [...] + +---------+ + + External Lab: Chloride (01/07/2017) + +-------+ + + + | Component [...] + +---------+ + + External Lab: Potassium (01/07/2017) + +-------+ + + + | Component | Value | Ref Range | Performed | Pathologist | | | | | At | Signature | + +-------+ + + + | Potassium, | 4.9 | 3.6 - 5.1 | EXTERNAL | [...] + +---------+ + + External Lab: Sodium (01/07/2017) + +-------+ + + + | Component | Value | Ref Range | Performed | Pathologist | | | | | At | Signature | + +-------+ + + + | Sodium, | 137 | 132 - 143 | EXTERNAL | [...] + +---------+ + + External Lab: Urinalysis (01/07/2017) + + + + + + | Component | Value | Ref Range | Performed | Pathologist | | | | | At | Signature | + + + + + + | UA Blood, | 250 | | EXTERNAL | | | External [...] + | UA Ph, | 7 | | EXTERNAL | | | External | | | LAB | | + + + + + + | UA | 25 | | EXTERNAL | | | Proteins, | | | LAB | | | External | | | | | + + + + + + | UA RBC, | 0 | | EXTERNAL | | | External | | | LAB | | + + + + + + | UA Specific | 1.007 | | EXTERNAL | | | [place], | | | LAB | | | [...] + +---------+ + + External Lab: CBC (01/07/2017) + + + + + + | Component | Value | Ref Range | Performed | Pathologist | | | | | At | Signature | + + + + + + | WBC, | 5.6 | 4.5 - 11 | EXTERNAL | | | External | | | LAB | | + + + + + + | HGB, | 12.8 (A) | 13.5 - 18 | EXTERNAL | | | External | | | LAB | | + + + + + + | HCT, | 37.4 (A) | 41 - 50 | EXTERNAL | | | External | | | LAB | | + + + + + + | PLT, | 189 | 140 - 440 | EXTERNAL | | | External | | | LAB | | + + + + + + | RBC, | 3.39 (A) | 4.3 - 5.7 | EXTERNAL | | | External | | | LAB | | + + + + + + | MCV, | 95 | 81 - 99 | EXTERNAL | | | External | | | LAB | | + + + + + + | RDW, | 14.3 | 10.5 - 15 | EXTERNAL | [...] + +---------+ + + External Lab: eGFR (01/07/2017) + +-------+ + + + | Component | Value | Ref Range | Performed | Pathologist | | | | | At | Signature | + +-------+ + + + | eGFR, | 24 | | EXTERNAL | | | External [...] + +---------+ + + External Lab: Creatinine (01/07/2017) + + + + + + | Component | Value | Ref Range | Performed | Pathologist | | | | | At | Signature | + + + + + + | Creatinine, | 2.87 (A) | 0.6 - 1.35 | EXTERNAL [...]
--- OUTSIDE RECORDS SUMMARY | ~2019-12-22 | XMS | Encounter Summary ---
Demographics + + + | Address | [address] [place] [address] | | | [place] [address] | + + + | Home Phone [...] Team Providers + +------+ + | Care Marketing Professor Name | Role | Phone | + +------+ + | Hai Holman MD | PCP | | + +------+ + Encounter Details +--------+ + + + + | Date | Type | Department | Care Team | Description | +--------+ + + + + | 03/02/ | Abstract | Nephrology & | Vitaliy Paige, | | | 2008 | | [facility] at [facility] | | | | | | [address] | | | | | | [facility] | | | | | | [place], [address] [place] [address] | | | | | | [place], [place] | | | | | | [address] | | | | | | [phone] | | | +--------+ + + + [...] +--------+ + + + | BASIC METABOLIC SET | Routin | 01/04/2009 | | Results for this | | (NA, K, CL, TCO2, | e | | | procedure are in the | | BUN, CR, GLU, CA) | | | | results section. | + +--------+ + + + | ANTI NUCLEAR AB | Routin | 10/31/2008 | | Results for this | | SCREEN, SERUM | e | | | procedure are in the | | | | | | results section. | + +--------+ + + + | COMPLETE METABOLIC | Routin | 09/27/2008 | | Results for this | | SET | e | | | procedure are in the | | (NA,K,CL,CO2,BUN,CRE | | | | results section. | | AT,GLUC,CA,AST,ALT,B | | | | | | KALPESH TOTAL,ALK | | | | | | PHOS,ALB,PROT TOTAL) | | | | | + +--------+ + + + | BASIC METABOLIC SET | Routin | 09/06/2008 | | Results for this | | (NA, K, CL, TCO2, | e | | | procedure are in the | | BUN, CR, GLU, CA) | | | | results section. | + +--------+ + + + documented in this encounter Results BASIC METABOLIC SET (NA, K, CL, TCO2, BUN, CR, GLU, CA) (01/04/2009) + +---------+ + + + | Component | Value | Ref Range | Performed | Pathologist | | | | | At | Signature | + +---------+ + + + | GLUCOSE, | 150 (A) | 65 - 110 mg/dL | [facility] | | | (LAB) | | | | | + +---------+ + + + | BUN, PLASMA | 31 | mg/dL | [facility] | | | (LAB) | | [facility] | | + +---------+ + + + | CREATININE | 2.04 | mg/dL | [facility] | | | (LAB) | | | | | + +---------+ + + + | SODIUM, | 138 | mmol/L | [facility] | [facility] | | | (LAB) | | | | | + +---------+ + + + | POTASSIUM, | 5.0 | mmol/L | [facility] | | [facility] | | | (LAB) | | | | | + +---------+ + + + | CHLORIDE, | 104 | mmol/L | [facility] | | [facility] | | | (LAB) | | | | | + +---------+ + + + | TOTAL CO2, | 26.3 | mmol/L | [facility] | | [facility] | | | (LAB) | | | | | + +---------+ + + + | CALCIUM, | 9.1 | mg/dL | [facility] | | [facility] | | | (LAB) | | | | | + +---------+ + + + | IRON SERUM | 57 | ug/dL | [facility] | | + +---------+ + + + | % | 19.6 | % | [facility] | | | SATURATION | | | [facility] | | | TRANSFERRIN | | | | | | , SERUM | | | | | + +---------+ + + + | PROTEIN/CRE | 322.9 | mg/mg | [facility] | | | ATININE | | | [facility] | | | RATIO | | | | | + +---------+ + + + | FERRITIN | 194 | ng/mL | [facility] | | | | | | [facility] | | + +---------+ + + + | ALBUMIN, | 3.7 | g/dL | [facility] | [facility] | | | (LAB) | | | | | + +---------+ + + + | PHOSPHORUS, | 2.5 | mg/dL | [facility] | | | (LAB) | | | | | + +---------+ + + + | MAGNESIUM,P | 2.12 | mg/dL | [facility] | | + +---------+ + + + | WHITE CELL | 13 | K/cu mm | [facility] | | | [facility] | | | [facility] | | + +---------+ + + + | HEMOGLOBIN | 11.8 | g/dL | [facility] | | [facility] | | + +---------+ + + + | HEMATOCRIT | 38.2 | % | [facility] | | | | [facility] | | + +---------+ + + + | PLATELET | 330 | K/cu mm | [facility] | | [facility] | | [facility] | | + +---------+ + + + + + | Specimen | + + | Blood - Blood | + + + +---------+ + + | Performing | Address | City/State/Zipcode | Phone Number | | Organization | | | | + +---------+ + + | [facility] | | | [phone] | | [facility] | | | | + +---------+ + + | [facility] | | [place], [place] | | | [facility] | | | | + +---------+ + + ANTI NUCLEAR AB SCREEN, SERUM (10/31/2008) + + + + + + | Component | Value | Ref Range | Performed | Pathologist | | | | | At | Signature | + + + + + + | ADAM TITER | <1:40 | | [facility] | | | | | [facility] | | + + + + + + | DSDNA AB, | None det | Titer | [facility] | | | IGG | | | [facility] | | + + + + + + | HEPATITIS C | Negative | | [facility] | | | AB | | | [facility] | | + + + + + + | ANCA | 0.3/0.1 | | [facility] | | | REFLEX: | | | [facility] | | | MPO/PR3 | | | | | + + + + + + | ANCA | Negative | | [facility] | | | -NEUTROPHIL | | | [facility] | | | | | | | | | CYTOPLASMIC | | | | | | IGG, SERUM | | | | | + + + + + + + + | Specimen | + + | Blood - Blood | + + + +---------+ + + | Performing | Address | City/State/Zipcode | Phone Number | | Organization | | | | + +---------+ + + | [facility] | | | [phone] | | [facility] | | | | + +---------+ + + | [facility] | | [place], [place] | | | [facility] | | | | + +---------+ + + COMPLETE METABOLIC SET (NA,K,CL,CO2,BUN,CREAT,GLUC,CA,AST,ALT,BILI TOTAL,ALK PHOS,ALB,PROT TOTAL) (09/27/2008) + +-------+ + + + | Component | Value | Ref Range | Performed | Pathologist | | | | | At | Signature | + +-------+ + + + | GLUCOSE, | 101 | 65 - 110 mg/dL | [facility] | | | (LAB) | | | | | + +-------+ + + + | BUN, PLASMA | 14 | mg/dL | [facility] | | | (LAB) | | [facility] | | + +-------+ + + + | CREATININE | 1.56 | mg/dL | [facility] | | | (LAB) | | | | | + +-------+ + + + | TOTAL | 6.7 | g/dL | [facility] | | | PROTEIN, | | | [facility]OSPITAL | | | PLASMA | | | | | | (LAB) | | | | | + +-------+ + + + | ALBUMIN, | 3.7 | g/dL | [facility] | | | [facility] | | | [facility] | | | (LAB) | | | | | + +-------+ + + + | CALCIUM, | 9.1 | mg/dL | [facility] | | | [facility] | [facility] | | | (LAB) | | | | | + +-------+ + + + | BILIRUBIN | 0.6 | Transcutaneous | [facility] | | | TOTAL | | Bilirubinometer | [facility]OSPITAL | | + +-------+ + + + | ALK PHOS | 65 | U/L | [facility] | | | | | | [facility] | | + +-------+ + + + | AST(SGOT) | 17 | U/L | [facility] | | | | | | [facility] | | + +-------+ + + + | SODIUM, | 141 | mmol/L | [facility] | | [facility] | [facility] | | | (LAB) | | | | | + +-------+ + + + | POTASSIUM, | 4.7 | mmol/L | [facility] | | [facility] | [facility] | | | (LAB) | | | | | + +-------+ + + + | CHLORIDE, | 102 | mmol/L | [facility] | | [facility] | | | (LAB) | | | | | + +-------+ + + + | TOTAL CO2, | 27.5 | mmol/L | [facility] | [facility] | | | (LAB) | | | | | + +-------+ + + + | ALT (SGPT) | 11 | U/L | [facility] | | | | | | [facility] | | + +-------+ + + + | WHITE CELL | 6.7 | K/cu mm | [facility] | | | [facility] | | | [facility] | | + +-------+ + + + | HEMOGLOBIN | 11.4 | g/dL | [facility] | | | | | | [facility] | | + +-------+ + + + | HEMATOCRIT | 36.3 | % | [facility] | | | | | | [facility] | | + +-------+ + + + | PLATELET | 538 | K/cu mm | [facility] | | | [facility] | | | [facility] | | + +-------+ + + + + + | Specimen | + + | Blood - Blood | + + + +---------+ + + | Performing | Address | City/State/Zipcode | Phone Number | | Organization | | | | + +---------+ + + | [facility] | | | [phone] | | [facility] | | | | + +---------+ + + | [facility] | | [place], [place] | | | [facility] | | | | + +---------+ + + BASIC METABOLIC SET (NA, K, CL, TCO2, BUN, CR, GLU, CA) (09/06/2008) + +-------+ + + + | Component | Value | Ref Range | Performed | Pathologist | | | | | At | Signature | + +-------+ + + + | GLUCOSE, | 97 | 65 - 110 mg/dL | [facility] | | | (LAB) | | | | | + +-------+ + + + | BUN, PLASMA | 15 | mg/dL | [facility] | | | (LAB) | | | [facility] | | + +-------+ + + + | CREATININE | 1.26 | mg/dL | [facility] | | [facility] | | | (LAB) | | | | | + +-------+ + + + | SODIUM, | 140 | mmol/L | [facility] | [facility] | | | (LAB) | | | | | + +-------+ + + + | POTASSIUM, | 4.3 | mmol/L | [facility] | | [facility] | | | (LAB) | | | | | + +-------+ + + + | CHLORIDE, | 103 | mmol/L | [facility] | | [facility] | | | (LAB) | | | | | + +-------+ + + + | TOTAL CO2, | 30 | mmol/L | [facility] | | [facility] | | | (LAB) | | | | | + +-------+ + + + | CALCIUM, | 9.0 | mg/dL | [facility] | | [facility] | [facility] | | | (LAB) | | | | | + +-------+ + + + | ALBUMIN, | 4.2 | g/dL | [facility] | | [facility] | [facility] | | | (LAB) | | | | | + +-------+ + + + | WHITE CELL | 7.8 | K/cu mm | [facility] | | | [facility] | | | [facility] | | + +-------+ + + + | HEMOGLOBIN | 12.6 | g/dL | [facility] | | | | | | [facility] | | + +-------+ + + + | HEMATOCRIT | 37.1 | % | [facility] | | | | | | [facility] | | + +-------+ + + + | PLATELET | 403 | K/cu mm | [facility] | | | [facility] | | | [facility] | | + +-------+ + + + + + | Specimen | + + | Blood - Blood | + + + +---------+ + + | Performing | Address | City/State/Zipcode | Phone Number | | Organization | | | | + +---------+ + + | [facility] | | | [phone] | | [facility] | | | | + +---------+ + + | [facility] | | [place], [place] | | | [facility] | | | | + +---------+ + + documented in this encounter Visit Diagnoses Not on filedocumented in this encounter"
--- OUTSIDE RECORDS SUMMARY | ~2019-12-22 | XMS | Encounter Summary ---
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 Specimen | + + | Tissue - Neck | | structure (body | | structure) | + + + + + + + | Performing | Address | City/State/Zipcode | Phone Number | | Organization | | | | + + + + + | [facility] | [address] | [place] [address] | | | PATHOLOGY | [address] | | | + + + + + | [facility] | [address] | [place] [address] | | | [facility] | | | | | HEALTH + HEALING | | | | + + + + + INTRAPROCEDURE IMAGING (12/05/2019 7:16 AM PDT) + + | Specimen | + + | | + + + + + | Narrative | Performed At | + + + | See admission or procedure notes for details of any intraprocedure | [facility] | | images obtained. | RADIOLOGY | + + + + +---------+ + + | Performing | Address | City/State/Zipcode | Phone Number | | Organization | | | | + +---------+ + + | [facility] | | | | + +---------+ + + CARDIOLOGY (12/05/2019 12:00 AM PDT) + + + | Narrative | Performed At | + + + | | | + + + documented in this encounter Visit Diagnoses + + | Diagnosis | + + | Parotid mass Swelling, mass, or lump in head and neck | + + documented in this encounter Administered Medications + +--------+ + +------+------+ | Medication Order | MAR | Action | Dose | Rate | Site | | | Action | Date | | | | + +--------+ + +------+------+ | acetaminophen (TYLENOL) tablet | Given | 12/06/19 | 1,000 mg | | | | 1,000 mg 1,000 mg, oral, THREE | | 20 7:32 | | | | | TIMES DAILY, First dose on Mon | | AM PDT | | | | | 12/05/19 at 1600, Until | | | | | | | Discontinued | | | | | | + +--------+ + +------+------+ +-------+ + +---+---+ | Given | 12/05/19 | 1,000 mg | | | | | 20 10:07 | | | | | | PM PDT | | | | +-------+ + +---+---+ | Given | 12/05/19 | 1,000 mg | | | | | 20 3:08 | | | | | | PM PDT | | | | +-------+ + +---+---+ +---+---+ | | | +---+---+ + +-------+ +-------+---+---+ | amLODIPine (NORVASC) tablet 10 | Given | 12/06/19 | 10 mg | | | | mg 10 mg, oral, DAILY, First | | 20 8:42 | | | | | dose on Thu12/05/19 at 1300, | | AM PDT | | | | | Until Discontinued | | | | | | + +-------+ +-------+---+---+ +-------+ +-------+---+---+ | Given | 12/05/19 | 10 mg | | | | | 20 3:08 | | | | | | PM PDT | | | | +-------+ +-------+---+---+ +---+---+ | | | +---+---+ + +-------+ + +---+---+ | calcium carbonate chewable | Given | 12/06/19 | 400 mg | | | | (TUMS) tablet 400 mg elemental | | 20 6:17 | elementa | | | | 400 mg elemental (1,000 mg total | | AM PDT | l | | | | salt), oral, EVERY 2 HOURS | | | | | | | NEEDED, Starting Thu12/05/19 at | | | | | | | 2213, Until Thu12/06/19 at 1624, | | | | | | | dyspepsia | | | | | | + +-------+ + +---+---+ +-------+ + +---+---+ | Given | 12/06/19 | 400 mg | | | | | 20 12:46 | elementa | | | | | AM PDT | l | | | +-------+ + +---+---+ | Given | 12/05/19 | 400 mg | | | | | 20 10:27 | elementa | | | | | PM PDT | l | | | +-------+ + +---+---+ +---+---+ | | | +---+---+ + +-------+ +---------+---+---+ | carvediloL (COREG) tablet 12.5 | Given | 12/06/19 | 12.5 mg | | | | mg 12.5 mg, oral, TWICE DAILY, | | 20 8:41 | | | | | First dose on Thu12/05/19 at | | AM PDT | | | | | 1300, Until Discontinued | | | | | | + +-------+ +---------+---+---+ +-------+ +---------+---+---+ | Given | 12/05/19 | 12.5 mg | | | | | 20 8:05 | | | | | | PM PDT | | | | +-------+ +---------+---+---+ +---+---+ | | | +---+---+ + +-------+ +-------+---+---+ | escitalopram oxalate (LEXAPRO) | Given | 12/06/19 | 20 mg | | | | tablet 20 mg 20 mg, oral, DAILY, | | 20 8:42 | | | | | First dose on Thu12/05/19 at | | AM PDT | | | | | 1300, Until Discontinued | | | | | | + +-------+ +-------+---+---+ +-------+ +-------+---+---+ | Given | 12/05/19 | 20 mg | | | | | 20 3:08 | | | | | | PM PDT | | | | +-------+ +-------+---+---+ +---+---+ | | | +---+---+ + +-------+ +--------+---+---+ | HYDROmorphone (DILAUDID) | Given | 12/05/19 | 0.3 mg | | | | injection 0.2-0.5 mg 0.2-0.5 mg, | | 20 12:00 | | | | | intravenous, POSTPROCEDURE PRN, | | PM PDT | | | | | Starting Thu12/05/19 at 1145, | | | | | | | Until Thu12/05/19 at 1216, | | | | | | | moderate pain while in Phase I | | | | | | | Recovery, if unable to take PO | | | | | | + +-------+ +--------+---+---+ +-------+ +--------+---+---+ | Given | 12/05/19 | 0.2 mg | | | | | 20 11:50 | | | | | | AM PDT | | | | +-------+ +--------+---+---+ +---+---+ | | | +---+---+ + +-------+ +--------+---+---+ | levothyroxine tablet 50 mcg 50 | Given | 12/06/19 | 50 mcg | | | | mcg, oral, BEFORE BREAKFAST, | | 20 6:17 | | | | | First dose on Thu12/06/19 at | | AM PDT | | | | | 0630, Until Discontinued | | | | | | + +-------+ +--------+---+---+ +---+---+ | | | +---+---+ + +-------+ +-------+---+ + | lidocaine-EPINEPHrine | Given | 12/05/19 | 16 mL | | Surgical | | (XYLOCAINE WITH EPINEPHRINE) 1 | | 20 9:01 | | | Site | | %-1:100,000 injection | | AM PDT | | | | | INTRAPROCEDURE PRN, Starting Mon | | | | | | | 12/05/19 at 0901, Until Mon | | | | | | | 12/05/19 at 1115 | | | | | | + +-------+ +-------+---+ + +---+---+ | | | +---+---+ + +-------+ +-------+---+---+ | morphine (MS IR) tablet 15-30 | Given | 12/05/19 | 15 mg | | | | mg 15-30 mg, oral, EVERY 4 HOURS | | 20 3:36 | | | | | NEEDED, Starting Thu12/05/19 | | PM PDT | | | | | at 1215, Until Thu12/05/19 at | | | | | | | 1952, severe pain | | | | | | + +-------+ +-------+---+---+ +-------+ +-------+---+---+ | Given | 12/05/19 | 15 mg | | | | | 20 12:49 | | | | | | PM PDT | | | | +-------+ +-------+---+---+ +---+---+ | | | +---+---+ + +-------+ +--------+---+---+ | morphine (MS IR) tablet 7.5-15 | Given | 12/06/19 | 7.5 mg | | | | mg 7.5-15 mg, oral, EVERY 4 | | 20 12:44 | | | | | HOURS NEEDED, Starting Mon | | AM PDT | | | | | 12/05/19 at 1951, Until Tue | | | | | | | 12/06/19 at 1624, severe pain | | | | | | + +-------+ +--------+---+---+ +-------+ +--------+---+---+ | Given | 12/05/19 | 7.5 mg | | | | | 20 8:23 | | | | | | PM PDT | | | | +-------+ +--------+---+---+ +---+---+ | | | +---+---+ + +-------+ +------+---+---+ | morphine injection 4 mg 4 mg, | Given | 12/05/19 | 4 mg | | | | intravenous, ONCE, 1 dose, Thu | | 20 12:48 | | | | | 12/05/19 at 1245 | | PM PDT | | | | + +-------+ +------+---+---+ +---+---+ | | | +---+---+ + +-------+ +-------+---+---+ | omeprazole (PRILOSEC) capsule | Given | 12/06/19 | 40 mg | | | | 40 mg 40 mg, oral, BEFORE | | 20 6:17 | | | | | BREAKFAST, First dose on Tue | | AM PDT | | | | | 12/06/19 at 0630, Until | | | | | | | Discontinued | | | | | | + +-------+ +-------+---+---+ +---+---+ | | | +---+---+ + +-------+ +------+---+---+ | ondansetron ODT (ZOFRAN ODT) | Given | 12/06/19 | 8 mg | | | | tablet 8 mg 8 mg, oral, EVERY 12 | | 20 12:44 | | | | | HOURS NEEDED, Starting Mon | | AM PDT | | | | | 12/05/19 at 1118, Until Tue | | | | | | | 12/06/19 at 1624, nausea/vomiting, | | | | | | | first line | | | | | | + +-------+ +------+---+---+ +---+---+ | | | +---+---+ + +-------+ +------+---+---+ | prochlorperazine (COMPAZINE) | Given | 12/05/19 | 5 mg | | | | tablet 5-10 mg 5-10 mg, oral, | | 20 8:05 | | | | | EVERY 6 HOURS NEEDED, Starting | | PM PDT | | | | | 12/05/19 at 1118, Until Tue | | | | | | | 12/06/19 at 1624, nausea/vomiting, | | | | | | | second line | | | | | | + +-------+ +------+---+---+ +-------+ +------+---+---+ | Given | 12/05/19 | 5 mg | | | | | 20 4:56 | | | | | | PM PDT | | | | +-------+ +------+---+---+ +---+---+ | | | +---+---+ + +-------+ + +---+---+ | senna-docusate (SENOKOT S) | Given | 12/06/19 | 1 tablet | | | | 8.6-50 mg 1 tablet 1 tablet, | | 20 8:41 | | | | | oral, TWICE DAILY, First dose on | | AM PDT | | | | | 12/05/19 at 1300, Until | | | | | | | Discontinued | | | | | | + +-------+ + +---+---+ +-------+ + +---+---+ | Given | 12/05/19 | 1 tablet | | | | | 20 8:05 | | | | | | PM PDT | | | | +-------+ + +---+---+ | Given | 12/05/19 | 1 tablet | | | | | 20 3:08 | | | | | | PM PDT | | | | +-------+ + +---+---+ +---+---+ | | | +---+---+ documented in this encounter
--- OUTSIDE RECORDS SUMMARY | ~2019-12-22 | XMS | Encounter Summary ---
Demographics + + + | Address | [address] | | | [place] [address] | + + + | Home Phone | | + + + | Preferred Language | Unknown | + + + | Marital Status | | + + + | Uatsdin Affiliation | 1041 | + + + | Race | Unknown | + + + | Ethnic Group | Unknown | + + + Author + + + | Author | [facility] | | | and [place] | + + + | Organization | [facility] | | | and [place] | + + + | Address | Unknown | + + + | Phone | Unavailable | + + + Support + + + + + | Name | Relationship | Address | Phone | + + + + + | Ryan Oneill | ECON | [place], [place] | | | | | [address] | | + + + + + | Misty Boateng | ECON | [address] | | | | | [place] | | | | | [address] | | + + + + + Care Team Providers + +------+ + | Care Packaging Manager Name | Role | Phone | + +------+ + PCP | Unavailable | + +------+ + Reason for Visit + + + | Reason | Comments | + + + | Chronic Kidney | Stage 4 | | Disease | | + + [...] | | | nephritis | [address] | | | | | Procedures | [place] | [address] | | | | | SD OFFICE | [address] | [place] | | | | | OUTPATIENT | [place], | [address] Phone: | | | | | VIS[address] | [place] | [phone] | | | | | MINUTES | [address] | Fax: | | | | | | Phone: | [phone] | | | | | | [phone] | | | | | | | Fax: | | | | | | | [phone] | | +--------+--------+ + + + + Encounter Details +--------+---------+ + + + | Date | Type | Department | Care Team | Description | +--------+---------+ + + + | 07/10/ | Office | [facility] | Christine Martinez, | CKD (chronic kidney | | 2015 | Visit | NEPHROLOGY [address] | disease) stage 4, | | | | [address] | [address] | GFR 15-29 ml/min | | | | [place], [place] | [facility] [place] [address] | (HCC) (Primary Dx); | | | | [address] | [phone] | Interstitial | | | | [phone] | | nephritis chronic; | | | | | | HTN (hypertension), | | | | | | [...] + + + | Blood Pressure | 128/88 | 07/10/2015 2:29 PM | | | | | PST | | + + + + + | Pulse | 85 | 07/10/2015 2:29 PM | | | | | PST | | + + + + + | Temperature | - | - | | + + + + + | Respiratory Rate | - | - | | + + + + + | Oxygen Saturation | 97% | 07/10/2015 2:29 PM | | | | | PST | | + + + + + | Inhaled Oxygen | - | - | | | Concentration | | | | + + + + + | Weight | 88.6 kg (195 lb 4.8 | 07/10/2015 2:29 PM | | | | oz) | PST | | + + + + + | Height | - | - | | + + + + + | Body Mass Index | 26.49 | 06/11/2015 12:00 PM | | | | | PST | | + + + + + documented in this encounter Patient Instructions Patient Instructions Christine Martinez MD - 07/10/2015 3:06 PM PSTContinue to taper down on prednisone. Will check labs in 2 weeks @ [facility]. Return in 4 weeks. documented in this encounter Progress Notes Christine Martinez MD - 07/10/2015 2:33 PM PSTFormatting of this note might be different f rom the original. Nephrology Follow-up Visit Visit date: 07/10/2015 Primary care provider: Hai Holman Follow-up type: 6 weeks HPI: Seema Oneill is a 44 y.o. male with chronic kidney disease stage 4, due to advanced nep hrosclerosis with chronic interstitial inflammation (kidney biopsy, performed on 06/11/15). On light microscopy, there was 21 sclerotic glomeruli and short segment of cortex with two n ormal glomeruli; electron microscopy, all of the 16 glomeruli were densely sclerotic. Pt wa s started on pednisone 60 mg QDAY on 06/11/15; currently on 40 mg QDAY. Pt is tolerating prednisone. Main side effect has been less sleep. Pt is having good appe tite, but trying to eat fruit. Pt reports some peripheral edema and mild shortness of breath. No chest pain. Diarrhea is present but not has severe. Pt is on Humira for Crohn's. ROS: A 6-system review was performed, and was negative or noncontributory other than as sta kavita above. PMH: Patient Active Problem List Diagnosis Date Noted Crohn's disease (HCC) 05/29/2015 Polyarthritis 05/29/2015 HTN (hypertension), benign 05/23/2015 Fatigue 05/23/2015 Interstitial nephritis chronic 05/23/2015 Outpatient Prescriptions Marked as Taking for the 07/10/15 encounter (Office Visit) with Robbie Martinez MD Medication Sig Dispense Refill cholecalciferoL (VITAMIN D-3) 1,000 units CAPS capsule Take 1,000 Units by mouth Daily. escitalopram (LEXAPRO) 20 mg tablet Take 20 mg by mouth Daily. pantoprazole (PROTONIX) 40 mg tablet Take 40 mg by mouth every morning (before breakfas t). predniSONE (DELTASONE) 20 mg tablet Take 60 mg PO daily x 1 week then taper down 10 mg weekly, last two weeks take 5 mg daily x 1 week then 5 mg every other day x 1 week (Patient taking differently: Take 60 mg PO daily x 1 week then taper down 10 mg weekly, last two week s take 5 mg daily x 1 week then 5 mg every other day x 1 week. Currently on 40mg.) 47 tablet 0 Physical Exam: Filed Vitals: 07/10/15 1429 BP: 128/88 Pulse: 85 Weight: 88.587 kg (195 lb 4.8 oz) SpO2: 97% Constitutional: Appears well-developed and well-nourished. No distress. Cardiovascular: Normal rate, regular rhythm and normal heart sounds. Minimal lower periphe ral edema. Lungs: Respiratory effort normal and breath sounds normal. No crackles or wheezes. Abdominal: Soft. Bowel sounds are present. Skin: Skin is warm. Neurological: Alert. Memory intact. Reviewed labs with patient. Abstract on 07/09/2015 Component Date Value Ref Range Status Creatinine, External 07/09/2015 3.64* 0.6 - 1.3 Final eGFR, External 07/09/2015 18* 60 Final Sodium, External 07/09/2015 137 135 - 145 Final Potassium, External 07/09/2015 4.3 3.5 - 5.1 Final Chloride, External 07/09/2015 103 100 - 110 Final Carbon Dioxide, External 07/09/2015 21 19 - 32 Final Calcium, External 07/09/2015 8.9 8.4 - 10.2 Final Phosphorus, External 07/09/2015 4.8 2.5 - 5 Final Albumin, External 07/09/2015 4.1 3.5 - 5.1 Final Glucose, External 07/09/2015 93 70 - 100 Final BUN, External 07/09/2015 58* 6 - 23 Final Abstract on 06/25/2015 Component Date Value Ref Range Status WBC, External 06/21/2015 9.7 8.4 - 10.2 Final RBC, External 06/21/2015 3.56* 4 Final Protein, Total, External 06/21/2015 6.6 Final Bilirubin, Total, External 06/21/2015 0.5 Final ALP, External 06/21/2015 63 Final AST, External 06/21/2015 8 Final ALT, External 06/21/2015 10 Final HGB, External 06/21/2015 10.6* 13.5 - 18 Final HCT, External 06/21/2015 32.3* 35 - 45 Final PLT, External 06/21/2015 192 140 - 440 Final MCV, External 06/21/2015 90 81 - 99 Final RDW, External 06/21/2015 13.8 10.5 - 15 Final Vitamin D, 25-Hydroxy, External 06/21/2015 24* 30 Final Iron Binding Capacity, External 06/21/2015 289 Final Iron Saturation, External 06/21/2015 23.1 20 Final Iron, External 06/21/2015 66.66 37 - 160 Final RHEUMATOID FACTOR, BODY FLUID 06/21/2015 <10 20 Final Myeloperoxidase Antibody 06/21/2015 0.1 0 - 0.9 Final Proteinase 3 Antibody 06/21/2015 0.4 0 - 0.9 Final ADAM Titer 1 06/21/2015 1:80 1:80 Final ANAPATTERN 06/21/2015 speckled Final dsDNA Ab Titer 06/21/2015 none detected Final BAUTISTA ANTIBODY 06/21/2015 0.5 Final CENTROMERE AB SCREEN 06/21/2015 none detected Final SJOGREN'S AB 06/21/2015 1.1 Final CHILANGO-1 autoantibody IgG 06/21/2015 0.4 Final Histone Ab 06/21/2015 0 100 U/mL Final Abstract on 06/21/2015 Component Date Value Ref Range Status Creatinine, External 06/21/2015 3.67* 0.6 - 1.35 Final eGFR, External 06/21/2015 18 Final Sodium, External 06/21/2015 136 132 - 143 Final Potassium, External 06/21/2015 4.3 3.6 - 5.1 Final Chloride, External 06/21/2015 101 95 - 112 Final Carbon Dioxide, External 06/21/2015 26 19 - 31 Final Calcium, External 06/21/2015 8.8 8.4 - 10.2 Final Albumin, External 06/21/2015 3.9 3.5 - 5 Final Glucose, External 06/21/2015 86 70 - 100 Final BUN, External 06/21/2015 46* 9 - 23 Final Admission on 06/11/2015, Discharged on 06/11/2015 Component Date Value Ref Range Status PROTIME 06/11/2015 13.2 11.3-13.9 seconds Final INR 06/11/2015 0.95 0.90-1.10 Final Usual Oral Anticoagulation Range: 2.0 - 3.0 High Level Oral Anticoagulation Range: 2.5 - 3.5 WBC 06/11/2015 4.5 4.0-11.0 K/uL Final RBC 06/11/2015 3.27* 4.30-5.70 M/uL Final Hgb 06/11/2015 9.8* 13.5-18.0 g/dL Final Hct 06/11/2015 29.2* 40.0-51.0 % Final MCV 06/11/2015 89.3 83.0-101.0 fL Final MCH 06/11/2015 30.0 28.0-35.0 pg Final MCHC 06/11/2015 33.5 32.0-36.0 g/dL Final RDW-CV 06/11/2015 13.2 <15.0 % Final Platelet Count 06/11/2015 175 140-440 K/uL Final MPV 06/11/2015 6.0 Final % Neutrophils 06/11/2015 67.7 45.0-82.0 % Final % Lymphocytes 06/11/2015 22.2 20.0-45.0 % Final % Monocytes 06/11/2015 8.9 4.0-12.0 % Final % Eosinophils 06/11/2015 0.7 0.0-5.0 % Final % Basophils 06/11/2015 0.5 0.0-1.0 % Final Absolute Neutrophils 06/11/2015 3.10 1.80-8.50 K/uL Final Absolute Lymphocytes 06/11/2015 1.00 0.60-3.20 K/uL Final Absolute Monocytes 06/11/2015 0.40 0.00-1.00 K/uL Final Absolute Eosinophils 06/11/2015 0.00 0.00-0.40 K/uL Final Absolute Basophils 06/11/2015 0.00 0.00-0.10 K/uL Final NA 06/11/2015 140 136-149 mmol/L Final K 06/11/2015 4.3 3.5-5.1 mmol/L Final CL 06/11/2015 108 98-109 mmol/L Final CO2 06/11/2015 24 24-31 mmol/L Final ANION GAP 06/11/2015 8 3-16 mmol/L Final GLUCOSE 06/11/2015 85 70-109 mg/dL Final BUN 06/11/2015 43* 7-18 mg/dL Final Creatinine, Serum/Plasma 06/11/2015 4.35* 0.60-1.30 mg/dL Final eGFR if not 06/11/2015 15* >=60 mL/min/1.73m2 Final GLOMERULAR FILTRATION RATE,ESTIMATED mL/min/1.73m2 Less than 60 Chronic kidney disease,if found over a 3-month period. Less than 15 Kidney failure For Americans,multiply the calculated GFR by 1.21. CALCIUM 06/11/2015 8.5 8.3-10.5 mg/dL Final BUN/CREA 06/11/2015 9.9 Final ASSESSMENT AND PLAN: ICD-10-CM ICD-9-CM 1. CKD (chronic kidney disease) stage 4, GFR 15-29 ml/min ([facility]) N18.4 585.4 Due to chronic interstitial disease. No uremic symptoms. Pt has been referred to [facility] transplant. eGFR is maintaining itself at 18 mL/min. -Will continue to monitor closely, and refer pt for PD catheter as soon as indicated 2. Interstitial nephritis chronic N11.9 582.89 On prednisone therapy for this and for his C rohn's disease. 3. HTN (hypertension), benign I10 401.1 Clinic BP is acceptable. -Pt will monitor home BP readings and call if >140/90 Renal in 2 weeks. Return in 4 weeks with labs (renal, cbc, ua, upcr). Cc: Hai Holman documented in this encounter Plan of Treatment +--------+---------+ + + + | Date | Type | Specialty | Care Team | Description | +--------+---------+ + + + | 03/20/ | Office | Nephrology | Christine Martinez, | | | 2019 | Visit | | MD Monica Manzanares | | | | | | [address] | | | | | | [place] [address] | | | | | | [phone] | | | | | | | | +--------+---------+ + + + documented as of this encounter Procedures + +--------+ + + + | Procedure Name | Priori | Date/Time | Associated Diagnosis | Comments | | | ty | | | | + +--------+ + + + | POCT URINALYSIS, | Routin | 07/10/2015 | CKD (chronic | Results for this | | AUTO WITH CONF | e | 2:35 PM | kidney disease) | procedure are in the | | | | PST | stage 4, GFR 15-29 | results section. 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
--- OUTSIDE RECORDS SUMMARY | ~2019-12-22 | XMS | Encounter Summary ---
Demographics + + + | Address | [address] [place] [address] | | | [place] [address] | + + + | Home Phone | | + + + | Preferred Language | Unknown | + + + | Marital Status | | + + + | Restoration Affiliation | CHR | + + + | Race | White | + + + | Ethnic Group | Not or | + + + Author + + + | Author | [facility] | + + + | Organization | [facility] | + + + | Address | Unknown | + + + | Phone | Unavailable | + + + Support + + +---------+ + | Name | Relationship | Address | Phone | + + +---------+ + | Misty Oneill | ECON | Unknown | | + + +---------+ + Care Team Providers + +------+ + | Care Support Engineer Name | Role | Phone | [...] | | | | | [address] [place], | [place], [place] | | | | | [place] [address] | [address] | | | | | [phone] | [phone] | | | | | | | [...] Performed At | + + + | [facility] | NON [facility] | | [id number] [address] | | |[place] [address] | | + + + + +---------+ + + | Performing | Address | City/State/Zipcode | Phone Number | | Organization | | | | + +---------+ + + | NON [facility] | | | | + +---------+ + + documented in this encounter Visit Diagnoses Not on filedocumented in this encounter"
--- OUTSIDE RECORDS SUMMARY | ~2019-12-22 | XMS | Encounter Summary ---
Demographics + + + | Address | [address] | | | [place] [address] | + + + | Home Phone | | + + + | Preferred Language | Unknown | + + + | Marital Status | | + + + | Synagogue Affiliation | 1041 | + + + | Race | Unknown | + + + | Ethnic Group | Unknown | + + + Author + + + | Author | [facility] | | | and [place] | + + + | Organization | [facility] | | | and [place] | + + + | Address | Unknown | + + + | Phone | Unavailable | + + + Support + + + + + | Name | Relationship | Address | Phone | + + + + + | Ryan Oneill | ECON | [place], [place] | | | | | [address] | | + + + + + | Misty Boateng | ECON | [address] | | | | | [place] | | | | | [address] | | + + + + + Care Team Providers + +------+ + | Care Wireless Sales Manager Name | Role | Phone | [...] RAE[facility] (acute | Christine W, | [address] | | | | | kidney | MD [address] | [place], | | | | | injury) | [address] | [place] [address] | | | | | (HCC) | [address] | Phone: | | | | | Procedures | [place] | [phone] | | | | | CT Guided | [address] | Fax: | | | | | Biopsy Renal | Phone: | [phone] | | | | | [facility] BIOPSY | [phone] | | | | | | OF | Fax: | | | | | | KIDNEY,PERCU | [phone] | | | | | | TANEOUS MA | | | | | | | CT GUIDANCE | | | | | | | NEEDLE | | | | | | | PLACEMENT | | | +--------+--------+ + + + + Encounter Details +--------+ + + + + | Date | Type | Department | Care Team | Description | +--------+ + + + + | 06/04/ | Orders Only | [facility] | Christine Martinez W, | RAEGAN (acute kidney | | 2015 | | NEPHROLOGY [address] | injury) ([facility]) | | | | [address] | [address] | (Primary Dx) | | | | [place] | [place] [address] | | | | | [address] | [phone] | | | | | [phone] | | | +--------+ + + + [...] | | | | | [place] [address] | | | | | | [phone] | | | | | | | | +--------+---------+ + + + documented as of this encounter Results CT Guided Biopsy Renal (06/11/2015 2:29 PM PST) + + | Specimen | + + | | + + + + + | Narrative | Performed At | + + + | CT GUIDED BIOPSY RENAL 06/11/2015 1:43 PM HISTORY: Acute kidney | [facility] | | injury. COMPARISON: None. PROTOCOL: After explaining the | [facility] | | risks and benefits of the [...] | + + + + + | [facility] | [address] | [place], [place] | [phone] | | [facility] | | [id number] | | | - IMAGING | | | | + + + + + documented in this encounter Visit Diagnoses + + | Diagnosis | + + | RAEGAN (acute kidney injury) (HCC) - Primary Acute kidney failure, unspecified | + + documented in this encounter"
--- OUTSIDE RECORDS SUMMARY | ~2019-12-22 | XMS | Encounter Summary ---
Demographics + + + | Address | [address] | | | [place] [address] | + + + | Home Phone | | + + + | Preferred Language | Unknown | + + + | Marital Status | | + + + | Evangelical Affiliation | 1041 | + + + [...] [place], [place] | | | | | [address] | | + + + + + | Misty Boateng | ECON | [address] | | | | | [place], [place] | | | | | [address] | | + + + + + Care Team Providers + +------+ + | Care Breakfast Cook Name | Role | Phone | + +------+ + PCP | Unavailable | + +------+ + Reason for Visit + + + | Reason | Comments | + + + | Medication Refill | | + + + Encounter Details +--------+--------+ + + + | Date | Type | Department | Care Team | Description | +--------+--------+ + + + | 01/21/ | Refill | [facility] | Christine Martinez W, | Medication Refill | | 2017 | | NEPHROLOGY [address] | MD [address] | | | | | [address] | [address] [place] | | | | | [place], [place] | [facility] [place] [address] | | | | | [address] | [phone] | | | | | [phone] | | | +--------+--------+ + + + [...] | | | | | [place] [address] | | | | | | [phone] | | | | | | | | +--------+---------+ + + + documented as of this encounter Visit Diagnoses Not on filedocumented in this encounter"
--- OUTSIDE RECORDS SUMMARY | ~2019-12-22 | XMS | Encounter Summary ---
Demographics + + + | Address | [address] | | | [place] [address] | + + + | Home Phone | | + + + | Preferred Language | Unknown | + + + | Marital Status | | + + + | Caodaism Affiliation | 1041 | + + + | Race | Unknown | + + + | Ethnic Group | Unknown | + + + Author + + + | Author | [facility] | | | and [place] | + + + | Organization | [facility] | | | and [place] | + + + | Address | Unknown | + + + | Phone | Unavailable | + + + Support + + + + + | Name | Relationship | Address | Phone | + + + + + | Ryan Oneill | ECON | [place], [place] | | | | | [address] | | + + + + + | Misty Boateng | ECON | [address] | | | | | [place] | | | | | [address] | | + + + + + Care Team Providers + +------+ + | Care Transfer Driver Name | Role | Phone | + +------+ + PCP | Unavailable | + +------+ + Reason for Visit + + + | Reason | Comments | + + + | Blood Pressure Check | | | (Screening) | | + + + Encounter Details +--------+ + + + + | Date | Type | Department | Care Team | Description | +--------+ + + + + | 08/27/ | Telephone | [facility] | Christine Martinez W, | Blood Pressure Check | | 2016 | | NEPHROLOGY [address] | [address] | (Screening) | | | | [address] | [address] [facility] | | | | | [place] | [place] [address] | | | | | [address] | [phone] | | | | | [phone] | | | +--------+ + + + [...] | | | | | | [address] | | | | | | [place] [address] | | | | | | [phone] | | | | | | | | +--------+---------+ + + + documented as of this encounter Visit Diagnoses Not on filedocumented in this encounter"
--- OUTSIDE RECORDS SUMMARY | ~2019-12-22 | XMS | Encounter Summary ---
Demographics + + + | Address | [address] | | | [place] [address] | + + + | Home Phone | | + + + | Preferred Language | Unknown | + + + | Marital Status | | + + + | Tenriism Affiliation | 1041 | + + + | Race | Unknown | + + + | Ethnic Group | Unknown | + + + Author + + + | Author | [facility] | | | and [place] | + + + | Organization | [facility] | | | and [place] | + + + | Address | Unknown | + + + | Phone | Unavailable | + + + Support + + + + + | Name | Relationship | Address | Phone | + + + + + | Ryan Oneill | ECON | [place], [place] | | | | | [address] | | + + + + + | Misty Boateng | ECON | [address] | | | | | [place] | | | | | [address] | | + + + + + Care Team Providers + +------+ + | Care Immunology Specialist Name | Role | Phone | + +------+ + | Jt Perkins MD | PCP | | + +------+ + Encounter Details +--------+ + + + + | Date | Type | Department | Care Team | Description | +--------+ + + + + | 04/14/ | Abstract | [facility] | Christine Martinez W, | | | 2018 | | NEPHROLOGY [address] | [address] | | | | | [address] | [address] [place] | | | | | [place], [place] | [place] [address] | | | | | [address] | [phone] | | | | | [phone] | | | +--------+ + + + [...] 2019 | Visit | | [address] | | | | | | [address] [place] | | | | | | [place] [address] | | | | | | [phone] | | | | | | | | +--------+---------+ + + + documented as of this encounter Procedures + +--------+ + + + | Procedure Name | Priori | Date/Time | Associated Diagnosis | Comments | | | ty | | | | + +--------+ + + + | EXTERNAL LAB: ANIVAL | Routin | 04/13/2019 | | Results for this | | | e | | | procedure are in the | | | | | | results section. | + +--------+ + + + | EXTERNAL LAB: | Routin | 04/13/2019 | | Results for this | | GLUCOSE | e | | | procedure are in the | | | | | | results section. | + +--------+ + + + | EXTERNAL LAB: | Routin | 04/13/2019 | | Results for this | | ALBUMIN | e | | | procedure are in the | | | | | | results section. | + +--------+ + + + | EXTERNAL LAB: | Routin | 04/13/2019 | | Results for this | | PHOSPHORUS | e | | | procedure are in the | | | | | | results section. | + +--------+ + + + | EXTERNAL LAB: | Routin | 04/13/2019 | | Results for this | | CALCIUM | e | | | procedure are in the | | | | | | results section. | + +--------+ + + + | EXTERNAL LAB: CARBON | Routin | 04/13/2019 | | Results for this | | DIOXIDE | e | | | procedure are in the | | | | | | results section. | + +--------+ + + + | EXTERNAL LAB: | Routin | 04/13/2019 | | Results for this | | CHLORIDE | e | | | procedure are in the | | | | | | results section. | + +--------+ + + + | EXTERNAL LAB: | Routin | 04/13/2019 | | Results for this | | POTASSIUM | e | | | procedure are in the | | | | | | results section. | + +--------+ + + + | EXTERNAL LAB: SODIUM | Routin | 04/13/2019 | | Results for this | | | e | | | procedure are in the | | | | | | results section. | + +--------+ + + + | EXTERNAL LAB: | Routin | 04/13/2019 | | Results for this | | VITAMIN D, | e | | | procedure are in the | | 25-HYDROXY | | | | results section. | + +--------+ + + + | EXTERNAL LAB: | Routin | 04/13/2019 | | Results for this | | URINALYSIS | e | | | procedure are in the | | | | | | results section. | + +--------+ + + + | EXTERNAL LAB: PTH, | Routin | 04/13/2019 | | Results for this | | INTACT | e | | | procedure are in the | | | | | | results section. | + +--------+ + + + | EXTERNAL LAB: | Routin | 04/13/2019 | | Results for this | | PROTEIN/CREATININE | e | | | procedure are in the | | RATIO | | | | results section. | + +--------+ + + + | EXTERNAL LAB: EGFR | Routin | 04/13/2019 | | Results for this | | | e | | | procedure are in the | | | | | | results section. | + +--------+ + + + | EXTERNAL LAB: | Routin | 04/13/2019 | | Results for this | | CREATININE | e | | | procedure are in the | | | | | | results section. | + +--------+ + + + | URINALYSIS, | Routin | 04/13/2019 | | Results for this | | MICROSCOPIC ONLY | e | | | procedure are in the | | | | | | results section. | + +--------+ + + + documented in this encounter Results Urinalysis, Microscopic Only (04/13/2019) + + + + + + | Component | Value | Ref Range | Performed | Pathologist | | | | | At | Signature | + + + + + + | WBC UA | 0 | /HPF | | | + + + + + + | Color, | Yellow | Light Yellow, | | | | Urine | | Yellow | | | + + + + + + | Clarity | Clear | | | | + + + + + + | Bacteria, | negative | | | | | UA | | | | | + + + + + + | SQUAMOUS | 0 | /HPF | | | | EPITHELIAL | | | | | | UA | | | | | + + + + + + | Nitrite, | Negative | Negative | | | | Urine | | | | | + + + + + + + + | Specimen | + + | Urine | + + External Lab: Protein/Creatinine Ratio (04/13/2019) + + + + + + | Component | Value | Ref Range | Performed | Pathologist | | | | | At | Signature | + + + + + + | Protein/Cre | 0.320 (A) | 0.2 | | | | atinine | | | | | | Ratio, | | | | | | External | | | | | + + + + + + + + | Specimen | + + | | + + External Lab: PTH, Intact (04/13/2019) + +-------+ + + + | Component | Value | Ref Range | Performed | Pathologist | | | | | At | Signature | + +-------+ + + + | PTH Intact, | 87.93 | 12 - 88 | | | | External | | | | | + +-------+ + + + + + | Specimen | + + | | + + External Lab: BUN (04/13/2019) + +-------+ + + + | Component | Value | Ref Range | Performed | Pathologist | | | | | At | Signature | + +-------+ + + + | BUN, | 38 | | EXTERNAL | | | External | | | LAB | | + +-------+ + + + + +---------+ + + | Performing | Address | City/State/Zipcode | Phone Number | | Organization | | | | + +---------+ + + | EXTERNAL LAB | | | | + +---------+ + + External Lab: Glucose (04/13/2019) + +-------+ + + + | Component | Value | Ref Range | Performed | Pathologist | | | | | At | Signature | + +-------+ + + + | Glucose, | 85 | | EXTERNAL | | | External | | | LAB | | + +-------+ + + + + +---------+ + + | Performing | Address | City/State/Zipcode | Phone Number | | Organization | | | | + +---------+ + + | EXTERNAL LAB | | | | + +---------+ + + External Lab: Albumin (04/13/2019) + +-------+ + + + | Component | Value | Ref Range | Performed | Pathologist | | | | | At | Signature | + +-------+ + + + | Albumin, | 4.2 | | EXTERNAL | | | External | | | LAB | | + +-------+ + + + + +---------+ + + | Performing | Address | City/State/Zipcode | Phone Number | | Organization | | | | + +---------+ + + | EXTERNAL LAB | | | | + +---------+ + + External Lab: Phosphorus (04/13/2019) + +-------+ + + + | Component | Value | Ref Range | Performed | Pathologist | | | | | At | Signature | + +-------+ + + + | Phosphorus, | 3.4 | | EXTERNAL | | | External | | | LAB | | + +-------+ + + + + +---------+ + + | Performing | Address | City/State/Zipcode | Phone Number | | Organization | | | | + +---------+ + + | EXTERNAL LAB | | | | + +---------+ + + External Lab: Calcium (04/13/2019) + +-------+ + + + | Component | Value | Ref Range | Performed | Pathologist | | | | | At | Signature | + +-------+ + + + | Calcium, | 8.9 | | EXTERNAL | | | External | | | LAB | | + +-------+ + + + + +---------+ + + | Performing | Address | City/State/Zipcode | Phone Number | | Organization | | | | + +---------+ + + | EXTERNAL LAB | | | | + +---------+ + + External Lab: Carbon Dioxide (04/13/2019) + +-------+ + + + | Component | Value | Ref Range | Performed | Pathologist | | | | | At | Signature | + +-------+ + + + | Carbon | 23 | | EXTERNAL | | | Dioxide, | | | LAB | | | External | | | | | + +-------+ + + + + +---------+ + + | Performing | Address | City/State/Zipcode | Phone Number | | Organization | | | | + +---------+ + + | EXTERNAL LAB | | | | + +---------+ + + External Lab: Chloride (04/13/2019) + +-------+ + + + | Component | Value | Ref Range | Performed | Pathologist | | | | | At | Signature | + +-------+ + + + | Chloride, | 104 | | EXTERNAL | | | External | | | LAB | | + +-------+ + + + + +---------+ + + | Performing | Address | City/State/Zipcode | Phone Number | | Organization | | | | + +---------+ + + | EXTERNAL LAB | | | | + +---------+ + + External Lab: Potassium (04/13/2019) + +-------+ + + + | Component | Value | Ref Range | Performed | Pathologist | | | | | At | Signature | + +-------+ + + + | Potassium, | 4.8 | | EXTERNAL | | | External | | | LAB | | + +-------+ + + + + +---------+ + + | Performing | Address | City/State/Zipcode | Phone Number | | Organization | | | | + +---------+ + + | EXTERNAL LAB | | | | + +---------+ + + External Lab: Sodium (04/13/2019) + +-------+ + + + | Component | Value | Ref Range | Performed | Pathologist | | | | | At | Signature | + +-------+ + + + | Sodium, | 139 | | EXTERNAL | | | External | | | LAB | | + +-------+ + + + + +---------+ + + | Performing | Address | City/State/Zipcode | Phone Number | | Organization | | | | + +---------+ + + | EXTERNAL LAB | | | | + +---------+ + + External Lab: Vitamin D, 25-Hydroxy (04/13/2019) + +-------+ + + + | Component | Value | Ref Range | Performed | Pathologist | | | | | At | Signature | + +-------+ + + + | Vitamin D, | 49 | | EXTERNAL | | | 25-Hydroxy, | [...] + +---------+ + + External Lab: Urinalysis (04/13/2019) + + + + + + | Component | Value | Ref Range | Performed | Pathologist | | | | | At | Signature | + + + + + + | UA Blood, | small | | EXTERNAL | | | External [...] + + + | UA RBC, | 5 | | EXTERNAL | | | External | | | LAB | | + + + + + + | UA Specific | 1.013 | | EXTERNAL | | | [place], | | | LAB | | | [...] + +---------+ + + External Lab: eGFR (04/13/2019) + +-------+ + + + | Component | Value | Ref Range | Performed | Pathologist | | | | | At | Signature | + +-------+ + + + | eGFR, | 22 | | EXTERNAL | | | External [...] + +---------+ + + External Lab: Creatinine (04/13/2019) + +-------+ + + + | Component | Value | Ref Range | Performed | Pathologist | | | | | At | Signature | + +-------+ + + + | Creatinine, | 3.08 | | EXTERNAL | | | External [...]
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
--- OUTSIDE RECORDS SUMMARY | ~2019-12-22 | XMS | Encounter Summary ---
Demographics + + + | Address | [address] [place] [address] | | | [place] [address] | + + + | Home Phone | | + + + | Preferred Language | Unknown | + + + | Marital Status | | + + + | Taoist Affiliation | CHR | + + + | Race | White | + + + | Ethnic Group | Not or | + + + Author + + + | Author | [facility] | + + + | Organization | [facility] | + + + | Address | Unknown | + + + | Phone | Unavailable | + + + Support + + +---------+ + | Name | Relationship | Address | Phone | + + +---------+ + | Misty Oneill | ECON | Unknown | | + + +---------+ + Care Team Providers + +------+ + | Care Tire Layer Name | Role | Phone | + +------+ + | Hai Holman MD | PCP | | + +------+ + Reason for Visit + + + | Reason | Comments | + + + | Lab Results | MDRD: 09/05/15 | + + + Encounter Details +--------+ + + + + | Date | Type | Department | Care Team | Description | +--------+ + + + + | 09/14/ | Abstract | Clinical | Santos Lorenzo, | Lab Results (MDRD: | | 2016 | | Transplant Services | [address] | 09/05/15) | | | | [address] | [address] | | | | | [place], | [place], [place] | | | | | [place] [address] | [address] | | | | | [phone] | [phone] | | | | | | | [...] + | MDRD 6 | Routin | 09/14/2015 | | Results for this | | | e | | | procedure are in the | | | | | | results section. | + +--------+ + + + documented in this encounter Results MDRD 6 (09/14/2015) + + + + + + | Component | Value | Ref Range | Performed | Pathologist | | | | | At | Signature | + + + + + + | MDRD6 | 18.20 | | [facility] - | | | | | | [place] | | | | | | [facility] | | | | | | OF CARE | | | | | | TESTS | | + + + + + + | CREATININE | 3.94 (H) | mg/dL | [facility] - | | | [facility] | | | [place] | | | (LAB) | | | [facility] | | | | | | OF CARE | | | | | | TESTS | | + + + + + + | BUN, PLASMA | 44 (H) | mg/dL | [facility] - | | | (LAB) | | | [place] | | | | | | [facility] | | | | | | OF CARE | | | | | | TESTS | | + + + + + + | ALBUMIN, | 4.0 | g/dL | [facility] - | | | PLASMA | | | [place] | | | (LAB) | | | [facility] | | | | | | OF CARE | | | | | | TESTS | | + + + + + + + + | Specimen | + + | Blood - Blood | + + + + + | Narrative | Performed At | + + + | | | + + + + + + + + | Performing | Address | City/State/Zipcode | Phone Number | | Organization | | | | + + + + + | [facility] | [address] | [place], [place] | | | [facility] | [address] | [address] | | | TESTS | | | | + + + + + documented in this encounter Visit Diagnoses Not on filedocumented in this encounter"
--- OUTSIDE RECORDS SUMMARY | ~2019-12-22 | XMS | Encounter Summary ---
Demographics + + + | Address | [address] [place] [address] | | | [place] [address] | + + + | Home Phone [...] Author | [facility] | + + + | Organization | [facility] | + + + | Address | Unknown | + + + | Phone | Unavailable | + + + Support + + +---------+ + | Name | Relationship | Address | Phone | + + +---------+ + | Misty Oneill | ECON | Unknown | | + + +---------+ + Care Team Providers + +------+ + | Care Harnessmaker Apprentice Name | Role | Phone | + +------+ + | Jt Perkins MD | PCP | | + +------+ + Encounter Details +--------+ + + + + | Date | Type | Department | Care Team | Description | +--------+ + + + + | 08/27/ | Lab | LAB IMMUNOGENETIC | Anam Posada MD | | | 2017 | Requisition | [facility] | [address] | | | | | [address] | [place] [place] [place], | | | | | [place], | [place] [address] | | | | | [place] [address] | [phone] | | | | | | | [...] FLOW HLA AB PRA | Routin | 08/22/2016 | | | | SCREEN I/II KE | e | 12:00 AM | | | | | | PST | | | + +--------+ + + + documented in this encounter Results LIT FLOW HLA AB PRA SCREEN I/II KE (08/22/2016 12:00 AM PST) + + | Specimen | + + | Blood - Blood | | (substance) | + + + + + + + | Performing | Address | City/State/Zipcode | Phone Number | | Organization | | | | + + + + + | [facility] - | [address] | [place] [address] | | | IMMUNOGENETICS/TRANS | [address] | | | | [facility] | | | | + + + + + documented in this encounter Visit Diagnoses Not on filedocumented in this encounter"
--- OUTSIDE RECORDS SUMMARY | ~2019-12-22 | XMS | Encounter Summary ---
Demographics + + + | Address | [address] | | | [place] [address] | + + + | Home Phone | | + + + | Preferred Language | Unknown | + + + | Marital Status | | + + + | Amish Affiliation | 1041 | + + + [...] [place], [place] | | | | | [address] | | + + + + + | Misty Boateng | ECON | [address] | | | | | [place], [place] | | | | | [address] | | + + + + + Care Team Providers + +------+ + | Care Certified Driver Examiner Name | Role | Phone | + +------+ + PCP | Unavailable | + +------+ + Encounter Details +--------+ + + + + | Date | Type | Department | Care Team | Description | +--------+ + + + + | 08/03/ | Abstract | [facility] | Christine Martinez W, | | | 2015 | | NEPHROLOGY [address] | | | | | [address] | [address] [place] | | | | | [place], [place] | [place] [address] | | | | | [address] | [phone] | | | | | [phone] | | | +--------+ + + + [...] | | | | | [place] [address] | | | | | | [phone] | | | | | | | | +--------+---------+ + + + documented as of this encounter Procedures + +--------+ + + + | Procedure Name | Priori | Date/Time | Associated Diagnosis | Comments | | | ty | | | | + +--------+ + + + | EXTERNAL LAB: ANIVAL | Routin | 08/02/2015 | | Results for this | | | e | | | procedure are in the | | | | | | results section. | + +--------+ + + + | EXTERNAL LAB: | Routin | 08/02/2015 | | Results for this | | GLUCOSE | e | | | procedure are in the | | | | | | results section. | + +--------+ + + + | EXTERNAL LAB: | Routin | 08/02/2015 | | Results for this | | ALBUMIN | e | | | procedure are in the | | | | | | results section. | + +--------+ + + + | EXTERNAL LAB: | Routin | 08/02/2015 | | Results for this | | PHOSPHORUS | e | | | procedure are in the | | | | | | results section. | + +--------+ + + + | EXTERNAL LAB: | Routin | 08/02/2015 | | Results for this | | CALCIUM | e | | | procedure are in the | | | | | | results section. | + +--------+ + + + | EXTERNAL LAB: CARBON | Routin | 08/02/2015 | | Results for this | | DIOXIDE | e | | | procedure are in the | | | | | | results section. | + +--------+ + + + | EXTERNAL LAB: | Routin | 08/02/2015 | | Results for this | | CHLORIDE | e | | | procedure are in the | | | | | | results section. | + +--------+ + + + | EXTERNAL LAB: | Routin | 08/02/2015 | | Results for this | | POTASSIUM | e | | | procedure are in the | | | | | | results section. | + +--------+ + + + | EXTERNAL LAB: SODIUM | Routin | 08/02/2015 | | Results for this | | | e | | | procedure are in the | | | | | | results section. | + +--------+ + + + | EXTERNAL LAB: | Routin | 08/02/2015 | | Results for this | | URINALYSIS | e | | | procedure are in the | | | | | | results section. | + +--------+ + + + | EXTERNAL LAB: | Routin | 08/02/2015 | | Results for this | | PROTEIN/CREATININE | e | | | procedure are in the | | RATIO | | | | results section. | + +--------+ + + + | EXTERNAL LAB: CBC | Routin | 08/02/2015 | | Results for this | | | e | | | procedure are in the | | | | | | results section. | + +--------+ + + + | EXTERNAL LAB: EGFR | Routin | 08/02/2015 | | Results for this | | | e | | | procedure are in the | | | | | | results section. | + +--------+ + + + | EXTERNAL LAB: | Routin | 08/02/2015 | | Results for this | | CREATININE | e | | | procedure are in the | | | | | | results section. | + +--------+ + + + documented in this encounter Results External Lab: Urinalysis (08/02/2015) + + + + + + | Component | Value | Ref Range | Performed | Pathologist | | | | | At | Signature | + + + + + + | UA Blood, | negative | negative | | | | External | | | | | + + + + + + | UA Glucose, | normal | normal | | | | External | | | | | + + + + + + | UA Ketones, | negative | negative | | | | External | | | | | + + + + + + | UA Ph, | 6 | 5 - 9 | | | | External | | | | | + + + + + + | UA | 25 | negative | | | | Proteins, | | | | | | External | | | | | + + + + + + | UA RBC, | 0 | 0 - 4 | | | | External | | | | | + + + + + + | UA Specific | 1.016 | 1.005 - 1.030 | | | | [place], | | | | | | External | | | | | + + + + + + | UA | negative | negative | | | | Leukocyte | | | | | | Esterase, | | | | | | External | | | | | + + + + + + | Bacteria, | None Seen | None Seen, 1-5, | | | | UA | | Occasional | | | + + + + + + | Nitrite, | Negative | Negative | | | | Urine | | | | | + + + + + + | Color | straw | | | | + + + + + + | Clarity | Clear | | | | + + + + + + + + | Specimen | + + | | + + External Lab: Protein/Creatinine Ratio (08/02/2015) + +-------+ + + + | Component | Value | Ref Range | Performed | Pathologist | | | | | At | Signature | + +-------+ + + + | Protein/Cre | 0.4 | | | | | atinine | | | | | | Ratio, | | | | | | External | | | | | + +-------+ + + + + + | Specimen | + + | | + + External Lab: ANIVAL (08/02/2015) + +--------+ + + + | Component | Value | Ref Range | Performed | Pathologist | | | | | At | Signature | + +--------+ + + + | ANIVAL, | 41 (A) | 6 - 23 | EXTERNAL [...] + +---------+ + + External Lab: Glucose (08/02/2015) + +--------+ + + + | Component | Value | Ref Range | Performed | Pathologist | | | | | At | Signature | + +--------+ + + + | Glucose, | 68 (A) | 70 - 100 | EXTERNAL [...] + +---------+ + + External Lab: Albumin (08/02/2015) + +-------+ + + + | Component | Value | Ref Range | Performed | Pathologist | | | | | At | Signature | + +-------+ + + + | Albumin, | 4.1 | 3.5 - 5 | EXTERNAL | [...] + +---------+ + + External Lab: Phosphorus (08/02/2015) + +-------+ + + + | Component | Value | Ref Range | Performed | Pathologist | | | | | At | Signature | + +-------+ + + + | Phosphorus, | 5.0 | 2.5 - 5 | EXTERNAL | [...] + +---------+ + + External Lab: Calcium (08/02/2015) + +-------+ + + + | Component | Value | Ref Range | Performed | Pathologist | | | | | At | Signature | + +-------+ + + + | Calcium, | 9.1 | 8.4 - 10.2 | EXTERNAL | [...] +---------+ + + External Lab: Carbon Dioxide (08/02/2015) + +-------+ + + + | Component [...] + +---------+ + + External Lab: Chloride (08/02/2015) + +-------+ + + + | Component [...] + +---------+ + + External Lab: Potassium (08/02/2015) + +-------+ + + + | Component [...] + +---------+ + + External Lab: Sodium (08/02/2015) + +-------+ + + + | Component | Value | Ref Range | Performed | Pathologist | | | | | At | Signature | + +-------+ + + + | Sodium, | 138 | 132 - 143 | EXTERNAL | [...] + +---------+ + + External Lab: CBC (08/02/2015) + + + + + + | Component | Value | Ref Range | Performed | Pathologist | | | | | At | Signature | + + + + + + | WBC, | 6.5 | 4.5 - 11 | EXTERNAL | | | External | | | LAB | | + + + + + + | HGB, | 12.9 (A) | 13.5 - 18 | EXTERNAL | | | External | | | LAB | | + + + + + + | HCT, | 39.1 (A) | 41 - 50 | EXTERNAL | | | External | | | LAB | | + + + + + + | PLT, | 190 | 140 - 440 | EXTERNAL | | | External | | | LAB | | + + + + + + | Neutrophils | 6.8 (A) | 39 - 80 | EXTERNAL | | | %, | | | LAB | | | External | | | | | + + + + + + | Lymphocytes | 15.4 (A) | 24 - 44 | EXTERNAL | | | %, | | | LAB | | | External | | | | | + + + + + + | Monocytes | 14.8 (A) | 0 - 12 | EXTERNAL | | | %, External | | | LAB | | + + + + + + | Eosinophils | 1.3 | 0 - 6 | EXTERNAL | | | %, | | | LAB | | | External | | | | | + + + + + + | RBC, | 4.19 (A) | 4.3 - 5.7 | EXTERNAL | | | External | | | LAB | | + + + + + + | MCV, | 93 | 81 - 99 | EXTERNAL | | | External | | | LAB | | + + + + + + | RDW, | 15.2 (A) | 10.5 - 15 | EXTERNAL | [...] + +---------+ + + External Lab: eGFR (08/02/2015) + +-------+ + + + | Component [...] + +---------+ + + External Lab: Creatinine (08/02/2015) + + + + + + | Component | Value | Ref Range | Performed | Pathologist | | | | | At | Signature | + + + + + + | Creatinine, | 3.48 (A) | 0.6 - 1.35 | EXTERNAL [...]
--- OUTSIDE RECORDS SUMMARY | ~2019-12-22 | XMS | Encounter Summary ---
Demographics + + + | Address | [address] [place] [address] | | | [place] [address] | + + + | Home Phone | | + + + | Preferred Language | Unknown | + + + | Marital Status | | + + + | Muslim Affiliation | CHR | + + + | Race | White | + + + | Ethnic Group | Not or | + + + Author + + + | Author | [facility] | + + + | Organization | [facility] | + + + | Address | Unknown | + + + | Phone | Unavailable | + + + Support + + +---------+ + | Name | Relationship | Address | Phone | + + +---------+ + | Misty Oneill | ECON | Unknown | | + + +---------+ + Care Team Providers + +------+ + | Care Tube Machine Operator Helper Name | Role | Phone | [...] consult) | | | | [address] [place], | [place], [place] | | | | | [place] [address] | [address] | | | | | [phone] | | | +--------+ + + + [...]
--- OUTSIDE RECORDS SUMMARY | ~2019-12-22 | XMS | Encounter Summary ---
Demographics + + + | Address | [address] [place] [address] | | | [place] [address] | + + + | Home Phone | | + + + | Preferred Language | Unknown | + + + | Marital Status | | + + + | Hoahaoism Affiliation | CHR | + + + [...] Team Providers + +------+ + | Care Staff Home Therapy Rn Name | Role | Phone | [...] | | | Surgery Services at | [place], | | | | | [facility] [address] | [place] [address] | | | | | [place] Mailcode: | [phone] | | | | | [facility] | | | | | | and Healing, | | | | | | [address] | | | | | | [place], [place] | | | | | | [address] | | | | | | [phone] | | | +--------+ + + + [...]
--- OUTSIDE RECORDS SUMMARY | ~2019-12-22 | XMS | Encounter Summary ---
Demographics + + + | Address | [address] [place] [address] | | | [place] [address] | + + + | Home Phone | | + + + | Preferred Language | Unknown | + + + | Marital Status | | + + + | Advent Affiliation | CHR | + + + | Race | White | + + + | Ethnic Group | Not or | + + + Author + + + | Author | [facility] | + + + | Organization | [facility] | + + + | Address | Unknown | + + + | Phone | Unavailable | + + + Support + + +---------+ + | Name | Relationship | Address | Phone | + + +---------+ + | Misty Oneill | ECON | Unknown | | + + +---------+ + Care Team Providers + +------+ + | Care E Learning Developer Name | Role | Phone | + +------+ + | Hai Holman MD | PCP | | + +------+ + Reason for Visit + + + | Reason | Comments | + + + | Lab Results | MDRD 6: 10/14/16 | + + + Encounter Details +--------+ + + + + | Date | Type | Department | Care Team | Description | +--------+ + + + + | 10/24/ | Abstract | Clinical | Santos Lorenzo, | Lab Results (MDRD 6: | | 2017 | | Transplant Services | [address] | 10/14/16) | | | | [address] | [address] | | | | | [place], | [place], [place] | | | | | [place] [address] | [address] | | | | | [phone] | [phone] | | | | | | | [...] + | MDRD 6 | Routin | 10/14/2016 | | Results for this | | | e | | | procedure are in the | | | | | | results section. | + +--------+ + + + documented in this encounter Results MDRD 6 (10/14/2016) + + + + + + | Component | Value | Ref Range | Performed | Pathologist | | | | | At | Signature | + + + + + + | MDRD6 | 24.62 | | NON [facility] | | | | | | LAB | | + + + + + + | BUN, PLASMA | 34 (H) | mg/dL | NON [facility] | | | (LAB) | | | LAB | | + + + + + + | CREATININE | 3.19 (H) | mg/dL | NON [facility] | | | PLASMA | | | LAB | | | (LAB) | | | | | + + + + + + | ALBUMIN, | 4.7 | g/dL | NON [facility] | | | PLASMA | | | LAB | | | (LAB) | | | | | + + + + + + + + | Specimen | + + | Blood - Blood | | (substance) | + + + + + | Narrative | Performed At | + + + | Christine Tirado | NON [facility] | | [facility] [address] [address] | | |[address] | | |[place] [address] | | + + + + +---------+ + + | Performing | Address | City/State/Zipcode | Phone Number | | Organization | | | | + +---------+ + + | NON [facility] | | | | + +---------+ + + documented in this encounter Visit Diagnoses Not on filedocumented in this encounter"
--- OUTSIDE RECORDS SUMMARY | ~2019-12-22 | XMS | Encounter Summary ---
Demographics + + + | Address | [address] [place] [address] | | | [place] [address] | + + + | Home Phone | | + + + | Preferred Language | Unknown | + + + | Marital Status | | + + + | Pentecostal Affiliation | CHR | + + + [...] Team Providers + +------+ + | Care Recycling Crew Supervisor Name | Role | Phone | + +------+ + | Hai Holman MD | PCP | | + +------+ + Reason for Visit + + + | Reason | Comments | + + + | Unos Listing | new add | + + + Encounter Details +--------+ + + + + | Date | Type | Department | Care Team | Description | +--------+ + + + + | 04/28/ | Telephone | Clinical | Thi Aden, | Unos Listing (new | | 2016 | | Transplant Services | RN [address] | add) | | | | [address] | [address] | | | | | [place], | [place], [place] | | | | | [place] [address] | [address] | | | | | [phone] | | | +--------+ + + + [...]
--- OUTSIDE RECORDS SUMMARY | ~2019-12-22 | XMS | Encounter Summary ---
Demographics + + + | Address | [address] | | | [place] [address] | + + + | Home Phone | | + + + | Preferred Language | Unknown | + + + | Marital Status | | + + + | Restorationism Affiliation | 1041 | + + + [...] [place], [place] | | | | | [address] | | + + + + + | Misty Boateng | ECON | [address] | | | | | [place], [place] | | | | | [address] | | + + + + + Care Team Providers + +------+ + | Care Electronic Warfare Technician Name | Role | Phone | + +------+ + PCP | Unavailable | + +------+ + Encounter Details +--------+ + + + + | Date | Type | Department | Care Team | Description | +--------+ + + + + | 09/17/ | Abstract | [facility] | Christine Martinez W, | | | 2017 | | NEPHROLOGY [address] | | | | | [address] | [address] [place] | | | | | [place], [place] | [place] [address] | | | | | [address] | [phone] | | | | | [phone] | | | +--------+ + + + [...] | | | | | [place] [address] | | | | | | [phone] | | | | | | | | +--------+---------+ + + + documented as of this encounter Procedures + +--------+ + + + | Procedure Name | Priori | Date/Time | Associated Diagnosis | Comments | | | ty | | | | + +--------+ + + + | EXTERNAL LAB: BUN | Routin | 09/16/2017 | | Results for this | | | e | | | procedure are in the | | | | | | results section. | + +--------+ + + + | EXTERNAL LAB: | Routin | 09/16/2017 | | Results for this | | GLUCOSE | e | | | procedure are in the | | | | | | results section. | + +--------+ + + + | EXTERNAL LAB: | Routin | 09/16/2017 | | Results for this | | ALBUMIN | e | | | procedure are in the | | | | | | results section. | + +--------+ + + + | EXTERNAL LAB: | Routin | 09/16/2017 | | Results for this | | PHOSPHORUS | e | | | procedure are in the | | | | | | results section. | + +--------+ + + + | EXTERNAL LAB: | Routin | 09/16/2017 | | Results for this | | CALCIUM | e | | | procedure are in the | | | | | | results section. | + +--------+ + + + | EXTERNAL LAB: CARBON | Routin | 09/16/2017 | | Results for this | | DIOXIDE | e | | | procedure are in the | | | | | | results section. | + +--------+ + + + | EXTERNAL LAB: | Routin | 09/16/2017 | | Results for this | | CHLORIDE | e | | | procedure are in the | | | | | | results section. | + +--------+ + + + | EXTERNAL LAB: | Routin | 09/16/2017 | | Results for this | | POTASSIUM | e | | | procedure are in the | | | | | | results section. | + +--------+ + + + | EXTERNAL LAB: SODIUM | Routin | 09/16/2017 | | Results for this | | | e | | | procedure are in the | | | | | | results section. | + +--------+ + + + | EXTERNAL LAB: | Routin | 09/16/2017 | | Results for this | | URINALYSIS | e | | | procedure are in the | | | | | | results section. | + +--------+ + + + | EXTERNAL LAB: | Routin | 09/16/2017 | | Results for this | | PROTEIN/CREATININE | e | | | procedure are in the | | RATIO | | | | results section. | + +--------+ + + + | EXTERNAL LAB: EGFR | Routin | 09/16/2017 | | Results for this | | | e | | | procedure are in the | | | | | | results section. | + +--------+ + + + | EXTERNAL LAB: | Routin | 09/16/2017 | | Results for this | | CREATININE | e | | | procedure are in the | | | | | | results section. | + +--------+ + + + | URINALYSIS WITH | Routin | 09/16/2017 | | Results for this | | MICROSCOPIC | e | | | procedure are in the | | | | | | results section. | + +--------+ + + + documented in this encounter Results Urinalysis With Microscopic (09/16/2017) + + + + + + | [...] | + + External Lab: Protein/Creatinine Ratio (09/16/2017) + + + + + + | Component | Value | Ref Range | Performed | Pathologist | | | | | At | Signature | + + + + + + | Protein/Cre | 0.207 (A) | 0.2 | | | | atinine | | | | | | Ratio, | | | | | | External | | | | | + + + + + + + + | Specimen | + + | | + + External Lab: Urinalysis (09/16/2017) + + + + + + | Component | Value | Ref Range | Performed | Pathologist | | | | | At | Signature | + + + + + + | UA Blood, | 50 (A) | 0 | EXTERNAL | | | External | [...] 1.014 | | EXTERNAL | | | [place], | | | LAB | | | [...] | + +---------+ + + External Lab: ANIVAL (09/16/2017) + +--------+ + + + | Component | Value | Ref Range | Performed | Pathologist | | | | | At | Signature | + +--------+ + + + | ANIVAL, | 31 (A) | 6 - 23 | EXTERNAL | | | External | | | LAB | | + +--------+ + + + + +---------+ + + | Performing | Address | City/State/Zipcode | Phone Number | | Organization | | | | + +---------+ + + | EXTERNAL LAB | | | | + +---------+ + + External Lab: Glucose (09/16/2017) + +-------+ + + + | Component | Value | Ref Range | Performed | Pathologist | | | | | At | Signature | + +-------+ + + + | Glucose, | 84 | 70 - 100 | EXTERNAL | | | External | | | LAB | | + +-------+ + + + + +---------+ + + | Performing | Address | City/State/Zipcode | Phone Number | | Organization | | | | + +---------+ + + | EXTERNAL LAB | | | | + +---------+ + + External Lab: Albumin (09/16/2017) + +-------+ + + + | Component | Value | Ref Range | Performed | Pathologist | | | | | At | Signature | + +-------+ + + + | Albumin, | 4.5 | 4 - 5 | EXTERNAL | | | External | | | LAB | | + +-------+ + + + + +---------+ + + | Performing | Address | City/State/Zipcode | Phone Number | | Organization | | | | + +---------+ + + | EXTERNAL LAB | | | | + +---------+ + + External Lab: Phosphorus (09/16/2017) + +-------+ + + + | Component | Value | Ref Range | Performed | Pathologist | | | | | At | Signature | + +-------+ + + + | Phosphorus, | 2.9 | 2.5 - 5 | EXTERNAL | | | External | | | LAB | | + +-------+ + + + + +---------+ + + | Performing | Address | City/State/Zipcode | Phone Number | | Organization | | | | + +---------+ + + | EXTERNAL LAB | | | | + +---------+ + + External Lab: Calcium (09/16/2017) + +-------+ + + + | Component [...] +---------+ + + External Lab: Carbon Dioxide (09/16/2017) + +-------+ + + + | Component | Value | Ref Range | Performed | Pathologist | | | | | At | Signature | + +-------+ + + + | Carbon | 24 | 23 - 32 | EXTERNAL | [...] + +---------+ + + External Lab: Chloride (09/16/2017) + +-------+ + + + | Component | Value | Ref Range | Performed | Pathologist | | | | | At | Signature | + +-------+ + + + | Chloride, | 104 | 100 - 110 | EXTERNAL | | | External | | | LAB | | + +-------+ + + + + +---------+ + + | Performing | Address | City/State/Zipcode | Phone Number | | Organization | | | | + +---------+ + + | EXTERNAL LAB | | | | + +---------+ + + External Lab: Potassium (09/16/2017) + +-------+ + + + | Component [...] + +---------+ + + External Lab: Sodium (09/16/2017) + +-------+ + + + | Component | Value | Ref Range | Performed | Pathologist | | | | | At | Signature | + +-------+ + + + | Sodium, | 140 | 135 - 145 | EXTERNAL | | | External | | | LAB | | + +-------+ + + + + +---------+ + + | Performing | Address | City/State/Zipcode | Phone Number | | Organization | | | | + +---------+ + + | EXTERNAL LAB | | | | + +---------+ + + External Lab: eGFR (09/16/2017) + +--------+ + + + | Component | Value | Ref Range | Performed | Pathologist | | | | | At | Signature | + +--------+ + + + | eGFR, | 25 (A) | 60 | EXTERNAL | | [...] + +---------+ + + External Lab: Creatinine (09/16/2017) + + + + + + | Component | Value | Ref Range | Performed | Pathologist | | | | | At | Signature | + + + + + + | Creatinine, | 2.79 (A) | 0.6 - 1.3 | EXTERNAL [...]
--- OUTSIDE RECORDS SUMMARY | ~2019-12-22 | XMS | Encounter Summary ---
Demographics + + + | Address | [address] | | | [place] [address] | + + + | Home Phone | | + + + | Preferred Language | Unknown | + + + | Marital Status | | + + + | Orthodoxy Affiliation | 1041 | + + + | Race | Unknown | + + + | Ethnic Group | Unknown | + + + Author + + + | Author | [facility] | | | and [place] | + + + | Organization | [facility] | | | and [place] | + + + | Address | Unknown | + + + | Phone | Unavailable | + + + Support + + + + + | Name | Relationship | Address | Phone | + + + + + | Ryan Oneill | ECON | [place], [place] | | | | | [address] | | + + + + + | Misty Boateng | ECON | [address] | | | | | [place] | | | | | [address] | | + + + + + Care Team Providers + +------+ + | Care Top And Seat Cover Fitter Name | Role | Phone | [...] | | | nephritis | [address] [place] [address] | | | | | Procedures | [place] | [address] [place] | | | | | [place] OFFICE | [address] | [facility] [place] | | | | | OUTPATIENT | [place], | [address] Phone: | | | | | VISIT 25 | [place] | [phone] | | | | | MINUTES | [address] | Fax: | | | | | | Phone: | [phone] | | | | | | [phone] | | | | | | | Fax: | | | | | | | [phone] | | +--------+--------+ + + + + Encounter Details +--------+ + + + + | Date | Type | Department | Care Team | Description | +--------+ + + + + | 04/28/ | Off-Site | [facility] [place] | Peace Drake | End stage renal | | 2016 | Visit | NEPHROLOGY [address] | M, DO [address] | disease (HCC) | | | | [address] | [place] | (Primary Dx) | | | | [place], [place] | [place], [place] | | | | | [address] | [address] | | | | | [phone] | | | +--------+ + + + [...] + + + | Blood Pressure | 130/92 | 04/28/2016 6:20 PM | | | | | PDT | | + + + + + | Pulse | - | - | | + + + + + | Temperature | 36.6 C (97.8 F) | 04/28/2016 6:20 PM | | | | | PDT [...] + + + + | Weight | 92.3 kg (203 lb 7.8 | 04/28/2016 6:20 PM | | | | oz) | PDT | | + + + + + | Height | - | - | | + + + + + | Body Mass Index | 27.6 | 11/08/2015 10:00 AM | | | | | PDT | | + + + + + documented in this encounter Progress Notes Peace Drake DO - 04/28/2016 6:22 PM PDT Subjective: [facility] Patient ID: Seema Oneill is a 45 y.o. male. 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 He recently attended a guided fishing trip to benefit Law Enforcement, and states that he b ecame acquainted with a fellow Officer from from [place], [place], who allegedly has agreed to give his a kidney. He also has HTN, hypothyroidism, anemia secondary to CKD, Crohn's which has bee [facility]ioprine/Humira. He does complain of fatigue, and not sleeping well. His appeti te is good. MEDS: Outpatient Prescriptions Marked as Taking for the 04/28/16 encounter (Off-Site Visit) with Peace Drake DO Medication Sig Dispense Refill Adalimumab [...] (with breakfast & dinner). 60 tablet 5 cholestyramine light (QUESTRAN) 4 g packet Take 4 g by mouth nightly. escitalopram (LEXAPRO) 20 mg tablet Take 20 mg by mouth Daily. gentamicin 0.1% cream APPLY TO PD SITE DAILY 15 g 11 pantoprazole (PROTONIX) 40 mg tablet Take 40 mg by mouth every morning (before breakfas t). CAPD: 2300cc exchanges, 1.5% Dianeal, 3 exchange /day. Allergies Allergen Reactions Lisinopril cough Review of Systems Objective: BP 130/92 mmHg | Temp(Src) 36.6 C (97.8 F) | Wt 92.3 kg (203 lb 7.8 oz) Physical Exam Heart: Regular rate and rhythm with no S3, S4, murmur or rub. Lungs: CTA bilaterally. No rales or wheezes. Abdomen: Soft, nontender, normoactive bowel sounds, no rebound, exit site at RLQ is edgar ar and dry. Extremities: no clubbing, cyanosis, edema. LAB: (Pt did not have monthly lab done, yet.) Assessment: 1. ESRD-- will await his most recent lab, and adequacy. His ECF volume and BP appear sta ble on PE. 2. Hypertension--the BP appears well controlled from review of the most recent treatment d lorelei in [place]. 3. Anemia 2' to CKD-- await his most recent lab. 4. CKD- Mineral Bone Disease-- await lab, and PTH. 5. Nutrition--his does relate that his appetite is very good. 6. 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 I highly recommend him, without any reservation. 7. Crohn's --in remission. Plan: 1. His monthly lab, adequacy was drawn today. Apparently, he has been extremely busy with his Law Enforcement career. He is refusing to take Medical snf, as he deeply enjoys his work. 2. Will review his lab, Hb, adequacy, PTH and make adjustments when available. 3. Otherwise, will plan on seeing him back in [facility] , in one month. 4. He does accurately describe, as above, a fellow Officer from [place], [place] who has verbal ly offered to be an altruistic donor.* : [place] Lorenzo MD, [facility], [facility] documented in thi s encounter Plan of Treatment +--------+---------+ + + + | Date | Type | Specialty | Care Team | Description | +--------+---------+ + + + | 03/20/ | Office | Nephrology | Christine Martinez, | | | 2019 | Visit | | MD Monica Manzanares | | | | | | [address] [place] | | | | | | [place] [address] | | | | | | [phone] | | | | | | | | +--------+---------+ + + + documented as of this encounter Visit Diagnoses + + | Diagnosis | + + | End stage renal disease (HCC) - Primary End stage renal disease | + + documented in this encounter"
--- OUTSIDE RECORDS SUMMARY | ~2019-12-22 | XMS | Encounter Summary ---
Demographics + + + | Address | [address] [place] [address] | | | [place] [address] | + + + | Home Phone [...] + + + | Author | [facility] | + + + | Organization | [facility] | + + + | Address | Unknown | + + + | Phone | Unavailable | + + + Support + + +---------+ + | Name | Relationship | Address | Phone | + + +---------+ + | Misty Oneill | ECON | Unknown | | + + +---------+ + Care Team Providers + +------+ + | Care Clinical Studies Specialist Name | Role | Phone | + +------+ + | Jt Perkins MD | PCP | | + +------+ + Encounter Details +--------+ + + + + | Date | Type | Department | Care Team | Description | +--------+ + + + + | 04/05/ | Telephone | Transplant Social | Margaret Holman, | | | 2019 | | Work [address] | [facility] [address] | | | | | Michelle Adam | [address] | | | | | [address], [place] | [place], [place] | | | | | [address] [place], [place] | [address] | | | | | [address] | [phone] | | | | | [phone] | | | +--------+ + + + [...]
--- OUTSIDE RECORDS SUMMARY | ~2019-12-22 | XMS | Encounter Summary ---
Demographics + + + | Address | [address] | | | [place] [address] | + + + | Home Phone | | + + + | Preferred Language | Unknown | + + + | Marital Status | | + + + | Yazdanism Affiliation | 1041 | + + + | Race | Unknown | + + + | Ethnic Group | Unknown | + + + Author + + + | Author | [facility] | | | and [place] | + + + | Organization | [facility] | | | and [place] | + + + | Address | Unknown | + + + | Phone | Unavailable | + + + Support + + + + + | Name | Relationship | Address | Phone | + + + + + | Ryan Oneill | ECON | [place], [place] | | | | | [address] | | + + + + + | Misty Boateng | ECON | [address] | | | | | [place] | | | | | [address] | | + + + + + Care Team Providers + +------+ + | Care Steno Pool Supervisor Name | Role | Phone | [...] Description | +--------+--------+ + + + | 06/22/ | Refill | [facility] [place] | Christine Martinez W, | Medication Refill | | 2014 | | NEPHROLOGY [address] | MD [address] | | | | | [address] | [address] [facility] | | | | | [place], [place] | [place] [address] | | | | | [address] | [phone] | | | | | [phone] | | | +--------+--------+ + + + [...] | | | | | | [address] [place] | | | | | | [place] [address] | | | | | | [phone] | | | | | | | | +--------+---------+ + + + documented as of this encounter Visit Diagnoses Not on filedocumented in this encounter"
--- OUTSIDE RECORDS SUMMARY | ~2019-12-22 | XMS | Encounter Summary ---
Demographics + + + | Address | [address] [place] [address] | | | [place] [address] | + + + | Home Phone | | + + + | Preferred Language | Unknown | + + + | Marital Status | | + + + | Shinto Affiliation | CHR | + + + [...] Team Providers + +------+ + | Care Broadcast Operations Engineer Name | Role | Phone | + +------+ + | Hai Holman MD | PCP | | + +------+ + Reason for Visit + + + | Reason | Comments | + + + | Transplant Status | Re-activation on [facility] | | Change | | + + + Encounter Details +--------+ + + + + | Date | Type | Department | Care Team | Description | +--------+ + + + + | 07/07/ | Telephone | Clinical | Thi Aden, | Transplant Status | | 2016 | | Transplant Services | RN [address] | Change | | | | [address] | [address] | (Re-activation on | | | | [address] [place], | [place], [place] | ) | | | | [place] [address] | [address] | | | | | [phone] | | | +--------+ + + + [...]
--- OUTSIDE RECORDS SUMMARY | ~2019-12-22 | XMS | Encounter Summary ---
Demographics + + + | Address | [address] | | | [place] [address] | + + + | Home Phone | | + + + | Preferred Language | Unknown | + + + | Marital Status | | + + + | Baptism Affiliation | 1041 | + + + | Race | Unknown | + + + | Ethnic Group | Unknown | + + + Author + + + | Author | [facility] | | | and [place] | + + + | Organization | [facility] | | | and [place] | + + + | Address | Unknown | + + + | Phone | Unavailable | + + + Support + + + + + | Name | Relationship | Address | Phone | + + + + + | Ryan Oneill | ECON | [place], [place] | | | | | [address] | | + + + + + | Misty Boateng | ECON | [address] | | | | | [place] | | | | | [address] | | + + + + + Care Team Providers + +------+ + | Care Goodyear Stitcher Name | Role | Phone | + +------+ + | Jt Perkins MD | PCP | | + +------+ + Encounter Details +--------+ + + + + | Date | Type | Department | Care Team | Description | +--------+ + + + + | 09/28/ | Orders Only | [facility] | Carlito Gaona MD | | | 2014 | | NEPHROLOGY [place] | [address] | | | | | [address] | [address] [place], [place] | | | | | [address] [facility], [place] | [address] | | | | | [address] | | | | | | [phone] | | | +--------+ + + + [...] | | | | | | [place] [address] | | | | | | [phone] | | | | | | | | +--------+---------+ + + + documented as of this encounter Procedures + +--------+ + + + | Procedure Name | Priori | Date/Time | Associated Diagnosis | Comments | | | ty | | | | + +--------+ + + + | EXTERNAL LAB: CBC | Routin | 09/28/2014 | | Results for this | | | e | 12:00 AM | | procedure are in the | | | | PDT | | results section. | + +--------+ + + + | URINALYSIS WITH | Routin | 09/28/2014 | | Results for this | | MICROSCOPIC WITH | e | 12:00 AM | | procedure are in the | | CULTURE IF INDICATED | | PDT | | results section. | + +--------+ + + + | VITAMIN D, | Routin | 09/28/2014 | | Results for this | | DEFICIENCY SCREEN | e | 12:00 AM | | procedure are in the | | (25-HYDROXY) | | PDT | | results section. | + +--------+ + + + | PARATHYROID HORMONE, | Routin | 09/28/2014 | | Results for this | | INTACT AND CALCIUM | e | 12:00 AM | | procedure are in the | | | | PDT | | results section. | + +--------+ + + + | PROTEIN/CREATININE | Routin | 09/28/2014 | | Results for this | | RATIO, URINE | e | 12:00 AM | | procedure are in the | | | | PDT | | results section. | + +--------+ + + + | PROTEIN, URINE, | Routin | 09/28/2014 | | Results for this | | RANDOM | e | 12:00 AM | | procedure are in the | | | | PDT | | results section. | + +--------+ + + + | CREATININE, URINE, | Routin | 09/28/2014 | | Results for this | | RANDOM | e | 12:00 AM | | procedure are in the | | | | PDT | | results section. | + +--------+ + + + | URIC ACID | Routin | 09/28/2014 | | Results for this | | | e | 12:00 AM | | procedure are in the | | | | PDT | | results section. | + +--------+ + + + | RENAL FUNCTION PANEL | Routin | 09/28/2014 | | Results for this | | | e | 12:00 AM | | procedure are in the | | | | PDT | | results section. | + +--------+ + + + documented in this encounter Results Urinalysis with Microscopic with Culture if Indicated (09/28/2014 12:00 AM PDT) + + + + + + | Component | Value | Ref Range | Performed | Pathologist | | | | | At | Signature | + + + + + + | Color | Yellow | | EXTERNAL | | | | | | LAB | | + + + + + + | Clarity | Clear | | EXTERNAL | | | | | | LAB | | + + + + + + | Spec Grav, | 1.028 | 1.005 - 1.030 | EXTERNAL | | | Fluid | [...] + + + + | Total | Negative | | EXTERNAL | | | Protein | | | LAB | | + + + + + + | pH, Urine | 6 | 5 - 9 | EXTERNAL | | | | | | LAB | | + + + + + + | Blood, | Negative | | EXTERNAL | | [...] + + Parathyroid Hormone, Intact and Calcium (09/28/2014 12:00 AM PDT) + +-------+ + + + | Component | Value | Ref Range | Performed | Pathologist | | | | | At | Signature | + +-------+ + + + | PTH Intact | 56.04 | 15 - 65 | EXTERNAL | | | | | | LAB | | + +-------+ + + + | Calcium | 9.3 | 8.4 - 10.2 | EXTERNAL | | | | | [...] + +---------+ + + Protein/Creatinine Ratio, Urine (09/28/2014 12:00 AM PDT) + +-------+ + + + | Component | Value | Ref Range | Performed | Pathologist | | | | | At | Signature | + +-------+ + + + | Protein/Cre | 100.4 | 0 - 150 | EXTERNAL | | | at Ratio [...] + +---------+ + + Protein, Urine, Random (09/28/2014 12:00 AM PDT) + +-------+ + + + | Component | Value | Ref Range | Performed | Pathologist | | | | | At | Signature | + +-------+ + + + | Protein, | 47 | 0.0 - 50.0 | EXTERNAL | | | Urine | [...] + +---------+ + + Creatinine, Urine, Random (09/28/2014 12:00 AM PDT) + +-------+ + + + | Component | Value | Ref Range | Performed | Pathologist | | | | | At | Signature | + +-------+ + + + | Creatinine, | 468 | | EXTERNAL | | | 24H [...] + + Vitamin D, Deficiency Screen (25-Hydroxy) (09/28/2014 12:00 AM PDT) + +--------+ + + + | Component | Value | Ref Range | Performed | Pathologist | | | | | At | Signature | + +--------+ + + + | Vit D, | 21 (A) | 30 - 100 | EXTERNAL | | | 25-Hydroxy | [...] + +---------+ + + External Lab: CBC (09/28/2014 12:00 AM PDT) + + + + + + | Component | Value | Ref Range | Performed | Pathologist | | | | | At | Signature | + + + + + + | WBC | 9.3 | 4.5 - 11.0 10 | EXTERNAL | | | | | | LAB | | + + + + + + | Red Blood | 4.75 | 4.3 - 5.7 10 | EXTERNAL | | | Cells | | | LAB | | | Counted | | | | | + + + + + + | Hemoglobin | 14.4 | 13.5 - 18.0 | EXTERNAL | | | | | g/dL | LAB | | + + + + + + | Hematocrit, | 42.7 | 41 - 50 % | EXTERNAL | | | POC | | | LAB | | + + + + + + | MCV | 89.9 | 81 - 99 fL | EXTERNAL | | | | | | LAB | | + + + + + + | MCH | 30 | 27 - 33 pg | EXTERNAL | | | | | | LAB | | + + + + + + | MCHC | 34 | 30 - 36 g/dL | EXTERNAL | | | | | | LAB | | + + + + + + | Platelet | 266 | 140 - 440 K/ L | EXTERNAL | | | Count | | | LAB | | | Plasma | | | | | + + + + + + | RDW-CV | 13.4 | 10.5 - 15.0 % | EXTERNAL | | | | | | LAB | | + + + + + + | MPV | | fL | EXTERNAL | | | | | | LAB | | + + + + + + | Differentia | Auto | | EXTERNAL | | | l Type | | | LAB | | + + + + + + | % Segmented | 67.5 | 39 - 80 % | EXTERNAL | | | | | | LAB | | | Neutrophils | | | | | + + + + + + | % | 22.6 (A) | 24 - 44 % | EXTERNAL | | | Lymphocytes | | | LAB | | + + + + + + | % Monocytes | 8.4 | 0 - 12 % | EXTERNAL | | | | | | LAB | | + + + + + + | % | 1.1 | 0 - 6 % | EXTERNAL | | | Eosinophils | | | LAB | | + + + + + + | % Basophils | 0.4 | 0 - 2 % | EXTERNAL | | | | | | LAB | | + + + + + + | Absolute | | / L | EXTERNAL | | | Segmented | | | LAB | | | Neutrophils | | | | | + + + + + + | Absolute | | / L | EXTERNAL | | | Lymphocytes | | | LAB | | + + + + + + | Absolute | | / L | EXTERNAL | | | Monocytes | | | LAB | | + + + + + + | Absolute | | / L | EXTERNAL | | | Eosinophils | | | LAB | | + + + + + + | Absolute | | [...] | + +---------+ + + Uric Acid (09/28/2014 12:00 AM PDT) + +-------+ + + + | Component | Value | Ref Range | Performed | Pathologist | | | | | At | Signature | + +-------+ + + + | Uric Acid | 6.3 | 4.4 - 7.6 | EXTERNAL | | | | | [...] + +---------+ + + Renal Function Panel (09/28/2014 12:00 AM PDT) + + + + + + | Component | Value | Ref Range | Performed | Pathologist | | | | | At | Signature | + + + + + + | Glucose, | 83 | 70 - 100 mg/dL | EXTERNAL | | | Fasting | | | LAB | | + + + + + + | BUN | 27 (A) | 6 - 23 mg/dL | EXTERNAL | | | | | | LAB | | + + + + + + | Creatinine | 1.79 (A) | 0.60 - 1.35 | EXTERNAL | | | | | mg/dL | LAB | | + + + + + + | PHOSPHORUS | | mg/dL | EXTERNAL | | | | | | LAB | | + + + + + + | Albumin | 4.4 | 3.5 - 5.0 | EXTERNAL | | | | | | LAB | | + + + + + + | Na | 139 | 132 - 143 | EXTERNAL | | | | | mmol/L | LAB | | + + + + + + | K | 4.4 | 3.6 - 5.1 | EXTERNAL | | | | | mmol/L | LAB | | + + + + + + | Cl | 104 | 95 - 112 mmol/L | EXTERNAL | | | | | | LAB | | + + + + + + | CO2 | 25 | 19 - 31 mmol/L | EXTERNAL | | | | | | LAB | | + + + + + + | Anion Gap | 14.4 | 7 - 21 mmol/L | EXTERNAL | | | | | | LAB | | + + + + + + | eGFR if not | | | EXTERNAL | | | | | | LAB | | | IRISH | | | | | + + + + + + | Phosphorus, | 3.5 | 2.5 - 5.0 | EXTERNAL | | | Inorganic | | | LAB | | + + + + + + | BUN/Creatin | 15.1 | 6.0 - 28.6 | EXTERNAL | | | ine Ratio | | | LAB | | + + + + + + | Calcium | 9.3 | 8.4 - 10.2 | EXTERNAL | | | | | mg/dL | LAB | | + + + + + + | Estimated | 42 | mg/dL | EXTERNAL | | | [...]
--- OUTSIDE RECORDS SUMMARY | ~2019-12-22 | XMS | Encounter Summary ---
Demographics + + + | Address | [address] | | | [place] [address] | + + + | Home Phone | | + + + | Preferred Language | Unknown | + + + | Marital Status | | + + + | Samaritan Affiliation | 1041 | + + + [...] | + + + + + | yRan Oneill | ECON | [place], [place] | | | | | [address] | | + + + + + | Misty Boateng | ECON | [address] | | | | | [place], [place] | | | | | [address] | | + + + + + Care Team Providers + +------+ + | Care Roll Up Helper Name | Role | Phone | + +------+ + PCP | Unavailable | + +------+ + Encounter Details +--------+ + + + + | Date | Type | Department | Care Team | Description | +--------+ + + + + | 05/14/ | Abstract | [facility] [place] | Christine Martinez W, | | | 2016 | | NEPHROLOGY [address] | [address] | | | | | [address] | [address] [place] | | | | | [place], [place] | [place] [address] | | | | | [address] | [phone] | | | | | [phone] | | | +--------+ + + + [...] this encounter Progress Notes Mandy Negrete - 05/14/2017 3:53 PM PDTOutside record: CT/Neck soft tissue without cont [facility]ast from [facility] diagnostic imaging, dos: 05/12/17. Sent to scanEdelmira flowers signed by Mandy Negrete at 05/14/2017 3:55 PM PDTdocumented in this encounter Plan of Treatment +--------+---------+ + + + | Date | Type | Specialty | Care Team | Description | +--------+---------+ + + + | 03/20/ | Office | Nephrology | Christine Martinez, | | | 2019 | Visit | | MD Monica Manzanares | | | | | | [address] [place] | | | | | | [place] [address] | | | | | | [phone] | | | | | | | | +--------+---------+ + + + documented as of this encounter Visit Diagnoses Not on filedocumented in this encounter"
--- OUTSIDE RECORDS SUMMARY | ~2019-12-22 | XMS | Encounter Summary ---
Demographics + + + | Address | [address] | | | [place] [address] | + + + | Home Phone | | + + + | Preferred Language | Unknown | + + + | Marital Status | | + + + | Congregation Affiliation | 1041 | + + + | Race | Unknown | + + + | Ethnic Group | Unknown | + + + Author + + + | Author | [facility] | | | and [place] | + + + | Organization | [facility] | | | and [place] | + + + | Address | Unknown | + + + | Phone | Unavailable | + + + Support + + + + + | Name | Relationship | Address | Phone | + + + + + | Ryan Oneill | ECON | [place], [place] | | | | | [address] | | + + + + + | Misty Boateng | ECON | [address] | | | | | [place] | | | | | [address] | | + + + + + Care Team Providers + +------+ + | Care Reconnaissance Man Name | Role | Phone | + +------+ + PCP | Unavailable | + +------+ + Reason for Visit + + + | Reason | Comments | + + + | Chronic Kidney | Stage 3 | | Disease | | + + [...] | | | nephritis | [address] | | | | | Procedures | [place] | [address] [place] | | | | | [place] OFFICE | [address] | [place] | | | | | OUTPATIENT | [place], | [address] Phone: | | | | | VISIT 25 | [place] | [phone] | | | | | MINUTES | [address] | Fax: | | | | | | Phone: | [phone] | | | | | | [phone] | | | | | | | Fax: | | | | | | | [phone] | | +--------+--------+ + + + + Encounter Details +--------+---------+ + + + | Date | Type | Department | Care Team | Description | +--------+---------+ + + + | 08/07/ | Office | [facility] | Christine Martinez, | CKD (chronic kidney | | 2016 | Visit | NEPHROLOGY [address] | disease) stage 4, | | | | [address] | [address] [place] | GFR 15-29 ml/min | | | | [place], [place] | [place] [address] | (HCC) (Primary Dx); | | | | [address] | [phone] | Interstitial | | | | [phone] | | nephritis chronic; | | | | | | HTN (hypertension), | | | | | | benign; Anemia in | | | | | | CKD (chronic kidney | | | | | | disease) | +--------+---------+ + + + Social History [...] + + + | Blood Pressure | 130/98 | 08/07/2015 9:58 AM | | | | | PST | | + + + + + | Pulse | 78 | 08/07/2015 9:58 AM | | | | | PST | | + + + + + | Temperature | - | - | | + + + + + | Respiratory Rate | - | - | | + + + + + | Oxygen Saturation | 96% | 08/07/2015 9:58 AM | | | | | PST | | + + + + + | Inhaled Oxygen | - | - | | | Concentration | | | | + + + + + | Weight | 91.5 kg (201 lb 12.8 | 08/07/2015 9:58 AM | | | | oz) | PST | | + + + + + | Height | - | - | | + + + + + | Body Mass Index | 27.37 | 06/11/2015 12:00 PM | | | | | PST | | + + + + + documented in this encounter Patient Instructions Patient Instructions Christine Martinez MD - 08/07/2015 10:28 AM PSTTaper off prednisone. Labs on Aug 27Thursday. documented in this encounter Progress Notes Christine Martinez MD - 08/07/2015 10:31 AM PSTFormatting of this note might be different f rom the original. Nephrology Follow-up Visit Visit date: 08/07/2015 Primary care provider: Hai Holman Follow-up type: 4 weeks HPI: Seema Oneill is a 44 y.o. male with chronic kidney disease due to advanced nephrosclero sis and chronic interstitial nephritis (kidney biopsy performed on 06/11/15). On light micro scopy, there was 21 sclerotic glomeruli and short segment of cortex with two normal glomerul i; electron microscopy, all of the 16 glomeruli were densely sclerotic. Pt was switched from budesonide to pednisone 60 mg QDAY on 06/11/15 for more systemic therapy. Pt has tapered do wn on prednisone to current dose of 5 mg QDAY. Pt is also on Humira for Crohn's disease. Pt caught an upper respiratory infection. Pt reports he felt pretty crummy. Dr. Holman star kavita pt on Keflex. Pt reports he still has some nasal drainage and cough. Mild shortness of breath. No chest pain, abdominal pain, nausea, vomiting, dysuria, edema. Pt has felt tired, but not excessi vely; still able to work some. Pt has appt at [facility] for transplant evaluation on 09/05/15. ROS: A 6-system review was performed, and was negative or noncontributory other than as sta kavita above. PMH: Patient Active Problem List Diagnosis Date Noted Crohn's disease (HCC) 05/29/2015 Polyarthritis 05/29/2015 HTN (hypertension), benign 05/23/2015 Fatigue 05/23/2015 Interstitial nephritis chronic 05/23/2015 Outpatient Prescriptions Marked as Taking for the 08/07/15 encounter (Office Visit) with Brandy Martinez MD Medication Sig Dispense Refill Adalimumab (HUMIRA SC) Inject 40 mg under the skin every 14 days. cephalexin (KEFLEX) 500 mg capsule Take 500 mg by mouth 4 times daily. cholecalciferoL (VITAMIN D-3) 1,000 units CAPS capsule Take 1,000 Units by mouth Daily. escitalopram (LEXAPRO) 20 mg tablet Take 20 mg by mouth Daily. folic acid (FOLVITE) 800 MCG tablet Take 800 mcg by mouth Daily. pantoprazole (PROTONIX) 40 mg tablet Take 40 mg by mouth every morning (before breakfas t). predniSONE (DELTASONE) 10 mg tablet Take 30 mg by mouth daily x 7 days, 20 mg daily x 7 days, 10 mg daily x 7 days, 5 mg daily x 7 days, 5 mg every other day x 7 days (Patient meng ing differently: 5 mg. Currently taking 5mg daily, Thursday will start every other day.) 90 ta blet 0 Physical Exam: Filed Vitals: 08/07/15 0958 BP: 130/98 Pulse: 78 Weight: 91.536 kg (201 lb 12.8 oz) SpO2: 96% Constitutional: Rider appearance of face. No distress. Cardiovascular: Normal rate, regular rhythm and normal heart sounds. Exam reveals no newberry p and no friction rub. No murmur heard. No peripheral edema. Lungs: Respiratory effort normal and breath sounds normal. No crackles or wheezes. Abdominal: Soft. Bowel sounds are present. Skin: Skin is warm. Neurological: Alert. Memory intact. Reviewed labs with patient. Office Visit on 08/07/2015 Component Date Value Ref Range Status POC COLOR UA 08/07/2015 Light Yellow Yellow, Light Yellow Final POC CLARITY UA 08/07/2015 Clear Final POC GLUCOSE UA 08/07/2015 Negative Negative Final POC BILIRUBIN UA 08/07/2015 Negative Negative Final POC KETONES UA 08/07/2015 Negative Negative, 100 mg/dL Final POC SPECIFIC GRAVITY UA 08/07/2015 1.010 1.001 - 1.030 Final POC BLOOD UA 08/07/2015 Trace Lysed* Negative Final POC PH UA 08/07/2015 6.0 5.0, 6.0, 7.0, 8.0, 5.5, 6.5, 7.5 Final POC PROTEIN UA 08/07/2015 30 mg/dL* Negative Final POC UROBILINOGEN UA 08/07/2015 0.2 0.2, Negative, Normal, < 0.2 mg/dL, 1 mg/dL, < 0.2 E.U./dl, 1.0 E.U./dL, 0.2 mg/dL Final POC NITRITE UA 08/07/2015 Negative Final POC LEUKOCYTE ESTERASE UA 08/07/2015 Negative Negative Final Abstract on 08/03/2015 Component Date Value Ref Range Status Creatinine, External 08/02/2015 3.48* 0.6 - 1.35 Final eGFR, External 08/02/2015 19 Final WBC, External 08/02/2015 6.5 4.5 - 11 Final HGB, External 08/02/2015 12.9* 13.5 - 18 Final HCT, External 08/02/2015 39.1* 41 - 50 Final PLT, External 08/02/2015 190 140 - 440 Final Neutrophils %, External 08/02/2015 6.8* 39 - 80 Final Lymphocytes %, External 08/02/2015 15.4* 24 - 44 Final Monocytes %, External 08/02/2015 14.8* 0 - 12 Final Eosinophils %, External 08/02/2015 1.3 0 - 6 Final RBC, External 08/02/2015 4.19* 4.3 - 5.7 Final MCV, External 08/02/2015 93 81 - 99 Final RDW, External 08/02/2015 15.2* 10.5 - 15 Final Sodium, External 08/02/2015 138 132 - 143 Final Potassium, External 08/02/2015 4.6 3.6 - 5.1 Final Chloride, External 08/02/2015 102 95 - 112 Final Carbon Dioxide, External 08/02/2015 22 19 - 31 Final Calcium, External 08/02/2015 9.1 8.4 - 10.2 Final Phosphorus, External 08/02/2015 5.0 2.5 - 5 Final Albumin, External 08/02/2015 4.1 3.5 - 5 Final Glucose, External 08/02/2015 68* 70 - 100 Final BUN, External 08/02/2015 41* 6 - 23 Final Protein/Creatinine Ratio, External 08/02/2015 0.4 Final UA Blood, External 08/02/2015 negative negative Final UA Glucose, External 08/02/2015 normal normal Final UA Ketones, External 08/02/2015 negative negative Final UA Ph, External 08/02/2015 6 5 - 9 Final UA Proteins, External 08/02/2015 25 negative Final UA RBC, External 08/02/2015 0 0 - 4 Final UA Specific [place], External 08/02/2015 1.016 1.005 - 1.030 Final UA Leukocyte Esterase, External 08/02/2015 negative negative Final Bacteria, UA 08/02/2015 None Seen None Seen, 1-5, Occasional Final NITRITE UA 08/02/2015 Negative Negative Final Color 08/02/2015 straw Final CLARITY 08/02/2015 Clear Final Abstract on 07/25/2015 Component Date Value Ref Range Status Creatinine, External 07/24/2015 3.19* 0.6 - 1.3 Final eGFR, External 07/24/2015 21* 60 Final Sodium, External 07/24/2015 137 135 - 145 Final Potassium, External 07/24/2015 4.3 3.5 - 5.1 Final Chloride, External 07/24/2015 103 100 - 110 Final Carbon Dioxide, External 07/24/2015 22 19 - 32 Final Calcium, External 07/24/2015 8.8 8.4 - 10.2 Final Phosphorus, External 07/24/2015 3.1 2.5 - 5 Final Albumin, External 07/24/2015 4.1 3.5 - 5 Final Glucose, External 07/24/2015 113* 70 - 100 Final BUN, External 07/24/2015 45* 6 - 23 Final Office Visit on 07/10/2015 Component Date Value Ref Range Status POC COLOR UA 07/10/2015 Yellow Yellow, Light Yellow Final POC CLARITY UA 07/10/2015 Clear Final POC GLUCOSE UA 07/10/2015 100 mg/dL* Negative Final POC BILIRUBIN UA 07/10/2015 Negative Negative Final POC KETONES UA 07/10/2015 Negative Negative, 100 mg/dL Final POC SPECIFIC GRAVITY UA 07/10/2015 1.010 1.001 - 1.030 Final POC BLOOD UA 07/10/2015 Trace Intact* Negative Final POC PH UA 07/10/2015 5.0 5.0, 6.0, 7.0, 8.0, 5.5, 6.5, 7.5 Final POC PROTEIN UA 07/10/2015 30 mg/dL* Negative Final POC UROBILINOGEN UA 07/10/2015 0.2 0.2, Negative, Normal, < 0.2 mg/dL, 1 mg/dL, < 0.2 E.U./dl, 1.0 E.U./dL, 0.2 mg/dL Final POC NITRITE UA 07/10/2015 Negative Final POC LEUKOCYTE ESTERASE UA 07/10/2015 Negative Negative Final Abstract on 07/09/2015 Component Date Value Ref [...] External 07/09/2015 58* 6 - 23 Final ASSESSMENT AND PLAN: ICD-10-CM ICD-9-CM 1. CKD (chronic kidney disease) stage 4, GFR 15-29 ml/min ([facility]) N18.4 585.4 Kidney function staying stable around eGFR 19 mL/min. Reviewed symptoms of uremia with patient. Plan to arrange for PD catheter placement once indicated (pt has requested to be referred [facility]). Pt has appt with [facility] Transplant. 2. Interstitial nephritis chronic N11.9 582.89 Will taper off prednisone. 3. HTN (hypertension), benign I10 401.1 Borderline. Will monitor as pt is coming off predn isone. If remains elevated, will d/w about starting an anti-hypertensive therapy. 4. Anemia in CKD (chronic kidney disease) N18.9 285.21 Hb >11. No indication for BENY. D63.1 585.9 Return in 6 weeks: renal. documented in this encounter Plan of Treatment +--------+---------+ + + + | Date | Type | Specialty | Care Team | Description | +--------+---------+ + + + | 03/20/ | Office | Nephrology | Christine Martinez, | | | 2019 | Visit | | [address] | | | | | | [address] [place] | | | | | | [place] [address] | | | | | | [phone] | | | | | | | | +--------+---------+ + + + documented as of this encounter Procedures + +--------+ + + + | Procedure Name | Priori | Date/Time | Associated Diagnosis | Comments | | | ty | | | | + +--------+ + + + | POCT URINALYSIS, | Routin | 08/07/2015 | CKD (chronic | Results for this | | AUTO WITH CONF | e | 9:55 AM | kidney disease) | procedure are in the | | | | PST | stage 4, GFR 15-29 | results section. | | | | | ml/min (HCC) | | + +--------+ + + + documented in this encounter Results POCT Urinalysis Dipstick Automated (08/07/2015 9:55 AM PST) + + + + + + | Component | Value | Ref Range | Performed | Pathologist | | | | | At | Signature | + + + + + + | Color, UA, | Light Yellow | Yellow, Light | | | [...] 1.001 - 1.030 | | | | [place], | | | | | | UA, POC | | | | | + + + + + + | Blood, UA, | Trace Lysed (A) | Negative | | | | POC | | | | | + + + + + + | pH, UA, POC | 6.0 | 5.0, 6.0, 7.0, | | | [...] benign Essential hypertension, benign | + + | Anemia in CKD (chronic kidney disease) Anemia in chronic kidney disease | + + documented in this encounter"
--- OUTSIDE RECORDS SUMMARY | ~2019-12-22 | XMS | Encounter Summary ---
Demographics + + + | Address | [address] | | | [place] [address] | + + + | Home Phone | | + + + | Preferred Language | Unknown | + + + | Marital Status | | + + + | Synagogue Affiliation | 1041 | + + + | Race | Unknown | + + + | Ethnic Group | Unknown | + + + Author + + + | Author | [facility] | | | and [place] | + + + | Organization | [facility] | | | and [place] | + + + | Address | Unknown | + + + | Phone | Unavailable | + + + Support + + + + + | Name | Relationship | Address | Phone | + + + + + | Ryan Oneill | ECON | [place], [place] | | | | | [address] | | + + + + + | Misty Boateng | ECON | [address] | | | | | [place], [place] | | | | | [address] | | + + + + + Care Team Providers + +------+ + | Care Flight Engineer Instructor Name | Role | Phone | + +------+ + PCP | Unavailable | + +------+ + Encounter Details +--------+ + + + + | Date | Type | Department | Care Team | Description | +--------+ + + + + | 07/25/ | Abstract | [facility] | Christine Martinez W, | | | 2015 | | NEPHROLOGY [address] | | | | | [address] | [address] [place] | | | | | [place], [place] | [place] [address] | | | | | [address] | [phone] | | | | | [phone] | | | +--------+ + + + [...] | | | | | [place] [address] | | | | | | [phone] | | | | | | | | +--------+---------+ + + + documented as of this encounter Procedures + +--------+ + + + | Procedure Name | Priori | Date/Time | Associated Diagnosis | Comments | | | ty | | | | + +--------+ + + + | EXTERNAL LAB: ANIVAL | Routin | 07/24/2015 | | Results for this | | | e | | | procedure are in the | | | | | | results section. | + +--------+ + + + | EXTERNAL LAB: | Routin | 07/24/2015 | | Results for this | | GLUCOSE | e | | | procedure are in the | | | | | | results section. | + +--------+ + + + | EXTERNAL LAB: | Routin | 07/24/2015 | | Results for this | | ALBUMIN | e | | | procedure are in the | | | | | | results section. | + +--------+ + + + | EXTERNAL LAB: | Routin | 07/24/2015 | | Results for this | | PHOSPHORUS | e | | | procedure are in the | | | | | | results section. | + +--------+ + + + | EXTERNAL LAB: | Routin | 07/24/2015 | | Results for this | | CALCIUM | e | | | procedure are in the | | | | | | results section. | + +--------+ + + + | EXTERNAL LAB: CARBON | Routin | 07/24/2015 | | Results for this | | DIOXIDE | e | | | procedure are in the | | | | | | results section. | + +--------+ + + + | EXTERNAL LAB: | Routin | 07/24/2015 | | Results for this | | CHLORIDE | e | | | procedure are in the | | | | | | results section. | + +--------+ + + + | EXTERNAL LAB: | Routin | 07/24/2015 | | Results for this | | POTASSIUM | e | | | procedure are in the | | | | | | results section. | + +--------+ + + + | EXTERNAL LAB: SODIUM | Routin | 07/24/2015 | | Results for this | | | e | | | procedure are in the | | | | | | results section. | + +--------+ + + + | EXTERNAL LAB: EGFR | Routin | 07/24/2015 | | Results for this | | | e | | | procedure are in the | | | | | | results section. | + +--------+ + + + | EXTERNAL LAB: | Routin | 07/24/2015 | | Results for this | | CREATININE | e | | | procedure are in the | | | | | | results section. | + +--------+ + + + documented in this encounter Results External Lab: BUN (07/24/2015) + +--------+ + + + | Component | Value | Ref Range | Performed | Pathologist | | | | | At | Signature | + +--------+ + + + | ANIVAL, | 45 (A) | 6 - 23 | EXTERNAL | | | External | | | LAB | | + +--------+ + + + + +---------+ + + | Performing | Address | City/State/Zipcode | Phone Number | | Organization | | | | + +---------+ + + | EXTERNAL LAB | | | | + +---------+ + + External Lab: Glucose (07/24/2015) + +---------+ + + + | Component | Value | Ref Range | Performed | Pathologist | | | | | At | Signature | + +---------+ + + + | Glucose, | 113 (A) | 70 - 100 | EXTERNAL | | | External | | | LAB | | + +---------+ + + + + +---------+ + + | Performing | Address | City/State/Zipcode | Phone Number | | Organization | | | | + +---------+ + + | EXTERNAL LAB | | | | + +---------+ + + External Lab: Albumin (07/24/2015) + +-------+ + + + | Component [...] + +---------+ + + External Lab: Phosphorus (07/24/2015) + +-------+ + + + | Component | Value | Ref Range | Performed | Pathologist | | | | | At | Signature | + +-------+ + + + | Phosphorus, | 3.1 | 2.5 - 5 | EXTERNAL | | | External | | | LAB | | + +-------+ + + + + +---------+ + + | Performing | Address | City/State/Zipcode | Phone Number | | Organization | | | | + +---------+ + + | EXTERNAL LAB | | | | + +---------+ + + External Lab: Calcium (07/24/2015) + +-------+ + + + | Component [...] +---------+ + + External Lab: Carbon Dioxide (07/24/2015) + +-------+ + + + | Component | Value | Ref Range | Performed | Pathologist | | | | | At | Signature | + +-------+ + + + | Carbon | 22 | 19 - 32 | EXTERNAL | [...] + +---------+ + + External Lab: Chloride (07/24/2015) + +-------+ + + + | Component [...] + +---------+ + + External Lab: Potassium (07/24/2015) + +-------+ + + + | Component [...] + +---------+ + + External Lab: Sodium (07/24/2015) + +-------+ + + + | Component [...] + +---------+ + + External Lab: eGFR (07/24/2015) + +--------+ + + + | Component [...] + +---------+ + + External Lab: Creatinine (07/24/2015) + + + + + + | [...]
--- OUTSIDE RECORDS SUMMARY | ~2019-12-22 | XMS | Encounter Summary ---
Demographics + + + | Address | [address] | | | [place] [address] | + + + | Home Phone | | + + + | Preferred Language | Unknown | + + + | Marital Status | | + + + | Worship Affiliation | 1041 | + + + | Race | Unknown | + + + | Ethnic Group | Unknown | + + + Author + + + | Author | [facility] | | | and [place] | + + + | Organization | [facility] | | | and [place] | + + + | Address | Unknown | + + + | Phone | Unavailable | + + + Support + + + + + | Name | Relationship | Address | Phone | + + + + + | Ryan Oneill | ECON | [place], [place] | | | | | [address] | | + + + + + | Misty Boateng | ECON | [address] | | | | | [place], [place] | | | | | [address] | | + + + + + Care Team Providers + +------+ + | Care Senior Interior Designer Name | Role | Phone | + [...] NEPHROLOGY [address] | MD [address] | nephritis chronic | | | | [address] | [address] [place] | (Primary Dx) | | | | [place] | [place] [address] | | | | | [address] | [phone] | | | | | [phone] | | | +--------+ + + + [...] as of this encounter Progress Notes Jennifer Noble RN - 08/21/2015 2:42 PM PST3/08/04- [facility] [...] | | | | | | [place] [address] | | | | | | [phone] | | | | | | | [...]
--- OUTSIDE RECORDS SUMMARY | ~2019-12-22 | XMS | Encounter Summary ---
Demographics + + + | Address | [address] | | | [place] [address] | + + + | Home Phone | | + + + | Preferred Language | Unknown | + + + | Marital Status | | + + + | Presybeterian Affiliation | 1041 | + + + | Race | Unknown | + + + | Ethnic Group | Unknown | + + + Author + + + | Author | [facility] | | | and [place] | + + + | Organization | [facility] | | | and [place] | + + + | Address | Unknown | + + + | Phone | Unavailable | + + + Support + + + + + | Name | Relationship | Address | Phone | + + + + + | Ryan Oneill | ECON | [place], [place] | | | | | [address] | | + + + + + | Misty Boateng | ECON | [address] | | | | | [place], [place] | | | | | [address] | | + + + + + Care Team Providers + +------+ + | Care Superintendent Car Construction Name | Role | Phone | + +------+ + PCP | Unavailable | + +------+ + Encounter Details +--------+ + + + + | Date | Type | Department | Care Team | Description | +--------+ + + + + | 12/02/ | Hospital | [facility] | Conversion | Migraine without | | 2016 | Encounter | [facility] | Transaction, | aura and without | | | | [address] | Provider Unknown | status migrainosus, | | | | [place], [place] | | not intractable; | | | | [address] | (Fax) | Cerebrovascular | | | | [phone] | | dural venous | | | | | | malformation; | | | | | | Frequent headaches | +--------+ + + + + Social [...] Take 1 tablet by | 60 | 5 | 08/29/19 | | | 12.5 mg tablet | mouth 2 times daily | tablet | | 16 | 6 | | | (with breakfast & | | | | | | | dinner). | | | | | + + + +---------+ + + | cholestyramine | Take 4 g by mouth | | 0 | | | | light (QUESTRAN) 4 g | nightly. | | | | 6 | | packet | | | | [...] 2019 | Visit | | [address] | | | | | | [address] [place] | | | | | | [place] [address] | | | | | | [phone] | | | | | | | | +--------+---------+ + + + documented as of this encounter Procedures + +--------+ + + + | Procedure Name | Priori | Date/Time | Associated Diagnosis | Comments | | | ty | | | | + +--------+ + + + | MRI BRAIN WO | Routin | 12/03/2015 | | Results for this | | CONTRAST | e | 10:54 AM | | procedure are in the | | | | PDT | | results section. | + +--------+ + + + documented in this encounter Results MRI Brain wo Contrast (12/03/2015 10:54 AM PDT) + + | Specimen | + + | | + + + + + | Impressions | Performed At | + + + | 1. No evidence of positive mass effect, signal abnormality | | | midline shift- but persistent asymmetric ectasia of the left lateral | | | ventricle. This can be associated with headaches and some | | | circumstances 2. The known venous malformation in the right | | | hemisphere is not well seen today, but there is no ancillary worrisome | | | finding or bleed. Major intracranial territories are well | | | perfused 3. Known diminutive and stable right vertebral artery, | | | normal variation Electronically signed by Galo Machado MD on | | | 12/03/2015 11:37 AM | | + + + + + + | Narrative | Performed At | + + + | HISTORY: 44 years old male with unexplained migraine headaches, | | | atypical features TECHNIQUE: 1. MR of the brain/intracranial | | | contents 2. Tnes-mn-ocoqab intracranial MRA, without contrast | | | No similar prior study for evaluation. CT of the head from March | | | 2013 FINDINGS: Diffusion weighted pulse sequences reveal no | | | evidence of abnormal signal compatible with acute or active ischemia. | | | ADC map agrees Gradient pulse sequences demonstrate no evidence of | | | dark signal compatible with abnormal intracranial hemosiderin | | | deposition. Probable artifact in typical basilar and peripheral | | | distributions. Multiplanar flair and T2 weighted pulse sequences | | | demonstrate a normal midline falx. The ventricles and parenchymal | | | volumes stability, there is physiologic asymmetry of the ventricles, | | | but no yael hydrocephalus. Although chronic finding, occasionally | | | the asymmetric ectasia of the left lateral ventricle can be associated | | | with headaches. No evidence of abnormal extra axial fluid | | | collection. The cervical occipital relationships are normal. There is | | | no evidence of cerebellar tonsillar ectopia. The sella, tectum, | | | pineal and seventh/eighth nerve complexes are normal. The orbits | | | are unremarkable. Paranasal sinuses only a mucocele in the left | | | maxillary sinus, small. No diffuse mucosal thickening or fluid. The | | | mastoids are clear. No evidence of diffuse white matter disease, | | | with some FLAIR artifact in typical distributions Gcbp-xr-utwhrc | | | intracranial MRA reveals a very diminutive right vertebral artery, | | | there is some basilar contribution, but not much. Going back to the CT | | | angiogram from April 2002-this is stable. The posterior | | | communicating vessels are either very diminutive or absent. There | | | is good symmetric zvxa-aj-fclsse flow in the carotid siphons, and the | | | A1 segments are nearly symmetric, the A2 segments are nearly | | | symmetrical so. Anterior communication is demonstrated. The venous | | | malformation the basal ganglia on the right, associated with an | | | asymmetric CSF cyst. The malformation itself is not seen well here. | | | The major intracranial territories are seemingly well perfused. The | | | realistic threshold for this examination for aneurysm is about 3 mm or | | | so, depending on location | | + + + + + | Procedure Note | + + | Chava, Rad Conversion - 03/03/2019 9:18 PM PDT HISTORY: 44 years old male with | | unexplained migraine headaches, atypical features TECHNIQUE: 1. MR of the | | brain/intracranial contents 2. Roxs-zz-nsujpo intracranial MRA, without contrast No | | similar prior study for evaluation. CT of the head from March 2014 FINDINGS: | | Diffusion weighted pulse sequences reveal no evidence of abnormal signal compatible with | | acute or active ischemia. ADC map agrees Gradient pulse sequences demonstrate no | | evidence of dark signal compatible with abnormal intracranial hemosiderin deposition. | | Probable artifact in typical basilar and peripheral distributions. Multiplanar flair and | | T2 weighted pulse sequences demonstrate a normal midline falx. The ventricles and | | parenchymal volumes stability, there is physiologic asymmetry of the ventricles, but no | | yael hydrocephalus. Although chronic finding, occasionally the asymmetric ectasia of | | the left lateral ventricle can be associated with headaches. No evidence of abnormal | | extra axial fluid collection. The cervical occipital relationships are normal. There is | | no evidence of cerebellar tonsillar ectopia. The sella, tectum, pineal and | | seventh/eighth nerve complexes are normal. The orbits are unremarkable. Paranasal | | sinuses only a mucocele in the left maxillary sinus, small. No diffuse mucosal | | thickening or fluid. The mastoids are clear. No evidence of diffuse white matter | | disease, with some FLAIR artifact in typical distributions Odjf-gv-lphrma intracranial | | MRA reveals a very diminutive right vertebral artery, there is some basilar | | contribution, but not much. Going back to the CT angiogram from April 2002-this is | | stable. The posterior communicating vessels are either very diminutive or absent. There | | is good symmetric sbdp-lj-abpqiz flow in the carotid siphons, and the A1 segments are | | nearly symmetric, the A2 segments are nearly symmetrical so. Anterior communication is | | demonstrated. The venous malformation the basal ganglia on the right, associated with an | | asymmetric CSF cyst. The malformation itself is not seen well here. The major | | intracranial territories are seemingly well perfused. The realistic threshold for this | | examination for aneurysm is about 3 mm or so, depending on location IMPRESSION: 1. No | | evidence of positive mass effect, signal abnormality midline shift- but persistent | | asymmetric ectasia of the left lateral ventricle. This can be associated with headaches | | and some circumstances 2. The known venous malformation in the right hemisphere is not | | well seen today, but there is no ancillary worrisome finding or bleed. Major | | intracranial territories are well perfused 3. Known diminutive and stable right | | vertebral artery, normal variation Electronically signed by Galo Machado MD on | | 12/03/2015 11:37 AM | |IMPRESSION: | | | |1. No evidence of positive mass effect, signal abnormality midline shift- but persistent as ymmetric ectasia of the left lateral ventricle. This can be associated with headaches and so me circumstances | | | |2. The known venous malformation in the right hemisphere is not well seen today, but there is no ancillary worrisome finding or bleed. | | | |Major intracranial territories are well perfused | | | |3. 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
--- OUTSIDE RECORDS SUMMARY | ~2019-12-22 | XMS | Encounter Summary ---
Demographics + + + | Address | [address] [place] [address] | | | [place] [address] | + + + | Home Phone | | + + + | Preferred Language | Unknown | + + + | Marital Status | | + + + | Voodoo Affiliation | CHR | + + + [...] Team Providers + +------+ + | Care Painter And Decorator Name | Role | Phone | [...] | | | | | (severe) | [place], [place] | | | | | | (HCC) | [address] | | | | | | Benign | Phone: | | | | | | hypertension | [phone] | | | | | | Procedures | Fax: | | | | | | CONSULT TO | [phone] | | | | | | NON [...] Decision) | | | | Kait Barrios [place], | [place], [place] | | | | | [place] [address] | [address] | | | | | [phone] | | | +--------+ + + + [...]
--- OUTSIDE RECORDS SUMMARY | ~2019-12-22 | XMS | Encounter Summary ---
Demographics + + + | Address | [address] | | | [place] [address] | + + + | Home Phone | | + + + | Preferred Language | Unknown | + + + | Marital Status | | + + + | Rastafarian Affiliation | 1041 | + + + | Race | Unknown | + + + | Ethnic Group | Unknown | + + + Author + + + | Author | [facility] | | | and [place] | + + + | Organization | [facility] | | | [place] | + + + | Address | Unknown | + + + | Phone | Unavailable | + + + Support + + + + + | Name | Relationship | Address | Phone | + + + + + | Ryan Oneill | ECON | [place], [place] | | | | | [address] | | + + + + + | Misty Boateng | ECON | [address] | | | | | [place] | | | | | [address] | | + + + + + Care Team Providers + +------+ + | Care Solar Electric/Photovoltaic Installer Name | Role | Phone | + [...] | NEPHROLOGY [address] | [address] | | | | | [address] | [address] [place] | | | | | [place], [place] | [place] [address] | | | | | [address] | [phone] | | | | | [phone] | | | +--------+ + + + [...] 2019 | Visit | | [address] | | | | | | [address] [place] | | | | | | [place] [address] | | | | | | [phone] | | | | | | | [...] 1.013 | | EXTERNAL | | | [place], | | | LAB | | | [...]
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
--- OUTSIDE RECORDS SUMMARY | ~2019-12-22 | XMS | Encounter Summary ---
Demographics + + + | Address | [address] [place] [address] | | | [place] [address] | + + + | Home Phone [...] Team Providers + +------+ + | Care Bullard Machine Operator Name | Role | Phone | + +------+ + | Jt Perkins MD | PCP | | + +------+ + Encounter Details +--------+ + + + + | Date | Type | Department | Care Team | Description | +--------+ + + + + | 11/22/ | MyChart | Otolaryngology | Tim Skinner MD | RE: biopsies were | | 2020 | Encounter | Head and Neck | [address] | benign | | | | Surgery Services at | Kait Barrios [place], | | | | | [facility] [address] | [place] [address] | | | | | [address] Mailcode: | [phone] | | | | | [facility] | | | | | | [facility] Healing, | | | | | | [address] | | | | | | [place], [place] | | | | | | [address] | | | | | | [phone] | | | +--------+ + + + [...]
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
--- OUTSIDE RECORDS SUMMARY | ~2019-12-22 | XMS | Encounter Summary ---
Demographics + + + | Address | [address] [place] [address] | | | [place] [address] | + + + | Home Phone | | + + + | Preferred Language | Unknown | + + + | Marital Status | | + + + | Scientology Affiliation | CHR | + + + [...] Team Providers + +------+ + | Care Refining Still Operator Name | Role | Phone | [...] + + | 03/30/ | Telephone | Clinical | Damaris Krishnamurthy RN | [facility] Waitlist | | 2018 | | Transplant Services | [address] | | | | | [address] | [place], | | | | | [place], | [place] [address] | | | | | [place] [address] | | | | | | [phone] | | | +--------+ + + + [...]
--- OUTSIDE RECORDS SUMMARY | ~2019-12-22 | XMS | Encounter Summary ---
Demographics + + + | Address | [address] [address] | | | [place] [address] | + + + | Home Phone [...] [place], [place] | | | | | [address] | | + + + + + | Misty Boateng | ECON | [address] | | | | | [place] | | | | | [address] | | + + + + + Care Team Providers + +------+ + | Care House Superintendent Name | Role | Phone | + [...] | | | | | | | [place] | | | | | | | COLONOSCOPY | | | | | | | FLX DX | | | | | | | W/COLLJ SPEC | | | | | | | WHEN PFRMD | | | | | | | [place] | | | | | | | [...] Description | +--------+---------+ + + + | 11/07/ | Surgery | [facility] | Pan Jhaveri MD | EGD / COLONOSCOPY | | 2016 | | [facility] | [address] | | | | | [address] | [place], [place] | | | | | [place], [place] | [address] | | | | | [address] | [phone] | | | | | [phone] | | | +--------+---------+ + + + [...] + + + | Blood Pressure | 96/53 | 11/08/2015 2:00 PM | | | | | PDT | | + + + + + | Pulse | 78 | 11/08/2015 2:00 PM | | | | | PDT | | + + + + + | Temperature | 36.4 C (97.5 F) | 11/08/2015 1:20 PM | | | | | PDT | | + + + + + | Respiratory Rate | 13 | 11/08/2015 2:00 PM | | | | | PDT | | + + + + + | Oxygen Saturation | 99% | 11/08/2015 2:00 PM | | | | | PDT | | + + + + + | Inhaled Oxygen | - | - | | | Concentration | | | | + + + + + | Weight | 88 kg (194 lb) | 11/08/2015 10:00 AM | | | | | PDT | | + + + + + | Height | 182.9 cm (6') | 11/08/2015 10:00 AM | | | | | PDT | | + + + + + | Body Mass Index | 26.31 | 11/08/2015 10:00 AM | | | | | PDT | | + + + + + documented in this encounter Discharge Instructions Instructions Mandi Caceres RN - 11/08/2015 Upper GI Endoscopy with Biopsy Upper GI endoscopy is a test that looks inside your upper GI (gastrointestinal) tract. This includes your food pipe (esophagus), stomach, and duodenum (the first part of your small in testine). The test is also known as EGD (esophagogastroduodenoscopy). It is done using a too l called an endoscope. This is a long, thin, flexible tube with a tiny camera at one end. Th e test helps find problems such as ulcers, infection, or growths. During the test, tissue sa mples (biopsies) may be taken and studied for problems. With the aid of an endoscope, the doctor can view the inside of the upper GI tract and also take small tissue samples. Getting ready for your procedure Follow any instructions from your healthcare provider. Tell your provider about any medicines you are taking. You may need to stop taking all or s ome of these before the test. This includes: All prescription medicines Wrfo-pck-didgpuy medicines such as aspirin or ibuprofen Street drugs Herbs, vitamins, and other supplements Follow any directions you re given for not eating or drinking before the procedure. The day of the procedure The procedure takes about 20 minutes. You will go home the same day. Before the procedure begins: You may be given medicine to help you relax or sleep (sedation). This is given through an I V (intravenous) line placed in a vein in your arm or hand. Your throat may be numbed with a spray or liquid. You will be given a small plastic guard to protect your teeth. During the procedure: You lie on your left side. The endoscope is placed in your mouth, and it moves down your throat. Air is used to expandyour GI tract so the lining can be seen more clearly. You may fee l pressure or mild pain from the air. The scope sends pictures of your GI tract to a computerscreen. The esophagus, stomach, and duodenum are viewed. Problems, such as bleeding, redness or swelling (inflammation), or growths may be seen. Using tools inserted through the endoscope, small samples of tissue can be taken. In some ca ses, small growths can be removed. The endoscope is then removed. After the procedure: The provider will talk with you afterward about the results. You ll rest until you can go home. Have an adult family member or friend drive you. Relax for the r est of the day. If you had a biopsy, the results will be ready in about 7 days. Recovering at home You ll likely feel drowsy after the test. A mild sore throat and mild gas and bloating ar e normal. Once home, follow any instructions you have been given. If you had sedation, do no t drive, operate machinery, or make major decisions until the next day. Call your provider if you have any of the following: Fever of 100.4F (38C) or higher, or as directed by your healthcare provider Chest pain Dark-colored stools Severe abdominal pain that doesn't go away when passing gas Sore throat that doesn t go away Trouble swallowing Vomiting, especially with blood Any other signs or symptoms indicated by your provider Follow-up If you had a biopsy, the results will be ready in about 7 days. Your provider will talk wit h you about anymore testing or treatment that is needed. Risks and possible complications include: Sore throat or hoarseness Bloating Nausea Allergic reaction to the sedative or numbing medicine Bleeding during or after the procedure Too much bleeding from the biopsy site (if a biopsy is done) A hole or tear (perforation) in the lining of the digestive tract Inhaling food or fluid into the lungs (aspiration) Irregular heartbeat or cardiac arrest in someone with heart or lung disease [phone] [employer]. [address] [place] [address], [place] [address]. All righ ts reserved. This information is not intended as a substitute for professional medical care. Always follow your healthcare professional's instructions. Colonoscopy Colonoscopyis used to view the inside of your lower digestive tract (colon and rectum). I t can help screen for colon cancer and can help find the source of abdominal pain,bleeding ,and changes in bowel habits. The test is usually done in the hospital on an outpatient ba sis. During the exam, the doctor can remove a small tissue sample ( a biopsy) for testing. S mall growths, such as polyps, may also be removed during colonoscopy. A camera attached to a flexible tube with a viewing lens is used to take video pictures. Getting ready Be sure to tell your doctor about any medications you take. Alsotell your doctor about any health conditions you may have. Discuss the risks of the test with your doctor. These includebleeding and bowel punctu re. Your rectum and colon must be empty for the test. So be sure tofollow the diet and bow el prep instructions exactly. If you don t, the test may need to be rescheduled. Ask your doctor whether you need to have a friend or family member prepared to drive you home after the test. Colonoscopy provides an inside view of the entire colon. During the test You are given sedating (relaxing) medication through an IV line.You may be drowsy or c ompletely asleep. The procedure takes 30minutes or longer. The doctor performs a digital rectal exam to check for anal andrectal problems. The re ctum is lubricated and the scope inserted. If you are awake, you may have a feeling similar to needing to have a bowelmovement. Y ou may also feel pressure as air is pumped into the colon. It Dillan to pass gas during the procedure. After the test You may discuss the results with your doctor right away or at a future visit. Try to pass all the gas right after the test to help prevent bloating and cramping. After the test, you can go back to your normal eating andother activities. Risks and possible complications include: Bleeding A puncture or tear in the colon Risks of anesthesia [phone] [employer]. [address] [place] [address], [place] [address]. All righ ts reserved. This information is not intended as a substitute for professional medical care. Always follow your healthcare professional's instructions. documented in this encounter Medications at Time [...] [address] | | | | | | [place] [address] | | | | | | [phone] | | | | | | | | +--------+---------+ + + + documented as of this encounter Procedures + +--------+ + + + | Procedure Name | Priori | Date/Time | Associated Diagnosis | Comments | | | ty | | | | + +--------+ + + + | EGD / COLONOSCOPY | | 11/08/2015 | NONE GIVEN | | | | | 12:54 PM | | | | | | PDT | | | + +--------+ + + + | SURGICAL PATHOLOGY | Routin | 11/08/2015 | | Results for this | | EXAM | e | 12:00 AM | | procedure are in the | | | | PDT | | results section. | + +--------+ + + + documented in this encounter Results Surgical Pathology Exam (11/08/2015 12:00 AM PDT) + + | Specimen | + + | | + + + + + | Narrative | Performed At | + + + | SPECIMEN(S): A GASTRIC BIOPSY SPECIMEN(S): B TERMINAL ILEUM | [facility] | | SPECIMEN(S): C RANDOM COLON BIOPSY SPECIMEN SOURCE: A. GASTRIC | INCYTE | | BIOPSY B. TERMINAL ILEUM C. RANDOM COLON BIOPSY CLINICAL | | | HISTORY: Reflux. Rule out Crohn's. EGD/colonoscopy. | | | MICROSCOPIC DESCRIPTION: Histologic sections of all submitted blocks | | | are examined by light microscopy. These findings, together with the | | | gross examination, support the pathologic diagnosis. In view of the | | | inflammatory foci in the random colon, special stains are performed | | | to detect pathogenic organisms. Appropriate external control tissues | | | are used and react as expected. GMS stain, AFB stain, and Brittany | | | stain are evaluated and no pathogenic organisms are identified. | | | FINAL PATHOLOGIC DIAGNOSIS: A. Stomach, biopsy: - Benign gastric | | | mucosa with patchy vascular congestion. - Negative for significant | | | inflammation, atrophy, intestinal metaplasia or dysplasia. - | | | Negative for Helicobacter pylori with HE stain. B. Terminal | | | ileum, biopsy: - Benign terminal ileal mucosa with Peyer's patch | | | lymphoid tissue. - Negative for increased inflammation, granulomas, | | | parasites, or feature of idiopathic inflammatory bowel disease. | | | C. Colon, random, biopsy: - Focal active colitis with mucosal | | | granulomas. - Colonic Crohn's disease cannot be excluded. - | | | Negative for dysplasia. COMMENT: Scattered poorly formed | | | mucosal granulomas are seen within the lamina propria along with a few | | | foci of neutrophilic cryptitis and mild non-specific patchy increase | | | in the lamina propria mononuclear cells. There is no architectural | | | distortion. Colonic mucosal granulomas can occur in the setting of | | | Crohn's disease, but other considerations would be infections | | | (tuberculosis, Yersinia, propionibacterium acnes, or other unknown | | | organisms), or sarcoidosis. Special stains (AFB, GMS, Brittany) did | | | not reveal any causative organisms, but special stains are relatively | | | insensitive. Clinical correlation is necessary. [facility]:C2NR | | | GROSS DESCRIPTION: A. The specimen, received in formalin, labeled | | | "Oneill, gastric," consists of three romo tissue fragments from 0.2 to | | | 0.5 cm in greatest dimension, submitted intact in cassette (A1). | | | B. The specimen, received in formalin, labeled "Oneill, terminal | | | ileum," consists of a 0.3 x 0.2 x 0.1 cm, romo tissue fragment, | | | submitted intact in cassette (B1). C. The specimen, received in | | | formalin, labeled "Oneill, random colon," consists of multiple romo | | | tissue fragments averaging 0.3 cm in greatest dimension, submitted | | | intact in cassette (C1). tn:IZZY:sarah PERFORMING LABORATORY: | | | Tissue processing and slide preparation were performed by [employer] | | | [employer], [address] [facility] [place] [address] | | | (Agent Producer: Paulie Krishnamurthy D.O..; CLIA#: [id number]). | | | Professional interpretation was performed by [employer] [id number] | | | [place] [address] (Agent Producer: | | | Paulie Krishnamurthy D.O.; CLIA#: [id number]). Diagnostician: | | | Enzo Kerr MD Pathologist Electronically Signed 11/13/2015 | | | | | + + [...] in this encounter Administered Medications + +--------+ +------+------+------+ | Medication Order | MAR | Action | Dose | Rate | Site | | | Action | Date | | | | + +--------+ +------+------+------+ | ondansetron (ZOFRAN) injection | Given | 11/08/19 | 4 mg | | | | 4 mg 4 mg, Intravenous, ONCE | | 16 1:36 | | | | | PRN, Nausea, Starting Tri 11/08/15 | | PM PDT | | | | | at 1330, For 1 dose, | | | | | | | Recovery/Phase I | | | | | | + +--------+ +------+------+------+ +---+---+ | | | +---+---+ documented in this encounter
--- OUTSIDE RECORDS SUMMARY | ~2019-12-22 | XMS | Encounter Summary ---
Demographics + + + | Address | [address] [place] [address] | | | [place] [address] | + + + | Home Phone [...] Team Providers + +------+ + | Care Bull Float Finisher Name | Role | Phone | + [...] | 10/05/ | Telephone | Clinical | hTi Aden, | [facility] Waitlist (support | | 2019 | | Transplant Services | RN [address] | issue) | | | | [address] | [address] | | | | | [place], | [place], [place] | | | | | [place] [address] | [address] | | | | | [phone] | | | +--------+ + + + [...]
--- OUTSIDE RECORDS SUMMARY | ~2019-12-22 | XMS | Encounter Summary ---
Demographics + + + | Address | [address] | | | [place] [address] | + + + | Home Phone | | + + + | Preferred Language | Unknown | + + + | Marital Status | | + + + | Evangelical Affiliation | 1041 | + + + | Race | Unknown | + + + | Ethnic Group | Unknown | + + + Author + + + | Author | [facility] | | | and [place] | + + + | Organization | [facility] | | | and [place] | + + + | Address | Unknown | + + + | Phone | Unavailable | + + + Support + + + + + | Name | Relationship | Address | Phone | + + + + + | Ryan Oneill | ECON | [place], [place] | | | | | [address] | | + + + + + | Misty Boateng | ECON | [address] | | | | | [place] | | | | | [address] | | + + + + + Care Team Providers + +------+ + | Care Hot Punch Press Operator Name | Role | Phone | + +------+ + | Jt Perkins MD | PCP | | + +------+ + Encounter Details +--------+ + + + + | Date | Type | Department | Care Team | Description | +--------+ + + + + | 12/01/ | Abstract | [facility] | Christine Martinez W, | | | 2018 | | NEPHROLOGY [address] | | | | | [address] | [address] [place] | | | | | [place], [place] | [place] [address] | | | | | [address] | [phone] | | | | | [phone] | | | +--------+ + + + [...] 2019 | Visit | | [address] | | | | | | [address] [place] | | | | | | [place] [address] | | | | | | [phone] | | | | | | | | +--------+---------+ + + + documented as of this encounter Procedures + +--------+ + + + | Procedure Name | Priori | Date/Time | Associated Diagnosis | Comments | | | ty | | | | + +--------+ + + + | EXTERNAL LAB: ANIVAL | Routin | 11/30/2018 | | Results for this | | | e | | | procedure are in the | | | | | | results section. | + +--------+ + + + | EXTERNAL LAB: | Routin | 11/30/2018 | | Results for this | | GLUCOSE | e | | | procedure are in the | | | | | | results section. | + +--------+ + + + | EXTERNAL LAB: | Routin | 11/30/2018 | | Results for this | | ALBUMIN | e | | | procedure are in the | | | | | | results section. | + +--------+ + + + | EXTERNAL LAB: | Routin | 11/30/2018 | | Results for this | | PHOSPHORUS | e | | | procedure are in the | | | | | | results section. | + +--------+ + + + | EXTERNAL LAB: | Routin | 11/30/2018 | | Results for this | | CALCIUM | e | | | procedure are in the | | | | | | results section. | + +--------+ + + + | EXTERNAL LAB: CARBON | Routin | 11/30/2018 | | Results for this | | DIOXIDE | e | | | procedure are in the | | | | | | results section. | + +--------+ + + + | EXTERNAL LAB: | Routin | 11/30/2018 | | Results for this | | CHLORIDE | e | | | procedure are in the | | | | | | results section. | + +--------+ + + + | EXTERNAL LAB: | Routin | 11/30/2018 | | Results for this | | POTASSIUM | e | | | procedure are in the | | | | | | results section. | + +--------+ + + + | EXTERNAL LAB: SODIUM | Routin | 11/30/2018 | | Results for this | | | e | | | procedure are in the | | | | | | results section. | + +--------+ + + + | EXTERNAL LAB: | Routin | 11/30/2018 | | Results for this | | URINALYSIS | e | | | procedure are in the | | | | | | results section. | + +--------+ + + + | EXTERNAL LAB: | Routin | 11/30/2018 | | Results for this | | PROTEIN/CREATININE | e | | | procedure are in the | | RATIO | | | | results section. | + +--------+ + + + | EXTERNAL LAB: EGFR | Routin | 11/30/2018 | | Results for this | | | e | | | procedure are in the | | | | | | results section. | + +--------+ + + + | EXTERNAL LAB: | Routin | 11/30/2018 | | Results for this | | CREATININE | e | | | procedure are in the | | | | | | results section. | + +--------+ + + + | URINALYSIS WITH | Routin | 11/30/2018 | | Results for this | | MICROSCOPIC | e | | | procedure are in the | | | | | | results section. | + +--------+ + + + documented in this encounter Results External Lab: Urinalysis (11/30/2018) + + + + + + | [...] + + + | UA Ketones, | trace | | EXTERNAL | | | External | | | LAB | | + + + + + + | UA Ph, | 5 | | EXTERNAL | | | External | | | LAB | | + + + + + + | UA | 30 | | EXTERNAL | | | Proteins, | | | LAB | | | External | | | | | + + + + + + | UA RBC, | 5 | | EXTERNAL | | | External | | | LAB | | + + + + + + | UA Specific | 1.019 | | EXTERNAL | | | [place], | | | LAB | | | [...] | | | + +---------+ + + Urinalysis With Microscopic (11/30/2018) + + + + + + | Component | Value | Ref Range | Performed | Pathologist | | | | | At | Signature | + + + + + + | WBC UA | 5 | /HPF | | | + + + + + + | Color, | Rita (A) | Light Yellow, | | | | Urine | | Yellow | | | + + + + + + | Clarity | Clear | | | | + + + + + + | Bacteria, | Negative | | | | | UA | [...] | + + External Lab: Protein/Creatinine Ratio (11/30/2018) + + + + + + | Component | Value | Ref Range | Performed | Pathologist | | | | | At | Signature | + + + + + + | Protein/Cre | 0.241 (A) | 0.2 | | | | atinine | | | | | | Ratio, | | | | | | External | | | | | + + + + + + + + | Specimen | + + | | + + External Lab: BUN (11/30/2018) + +-------+ + + + | Component | Value | Ref Range | Performed | Pathologist | | | | | At | Signature | + +-------+ + + + | BUN, | 29 | | EXTERNAL | | | External | | | LAB | | + +-------+ + + + + +---------+ + + | Performing | Address | City/State/Zipcode | Phone Number | | Organization | | | | + +---------+ + + | EXTERNAL LAB | | | | + +---------+ + + External Lab: Glucose (11/30/2018) + +-------+ + + + | Component | Value | Ref Range | Performed | Pathologist | | | | | At | Signature | + +-------+ + + + | Glucose, | 108 | | EXTERNAL | | | External | | | LAB | | + +-------+ + + + + +---------+ + + | Performing | Address | City/State/Zipcode | Phone Number | | Organization | | | | + +---------+ + + | EXTERNAL LAB | | | | + +---------+ + + External Lab: Albumin (11/30/2018) + +-------+ + + + | Component | Value | Ref Range | Performed | Pathologist | | | | | At | Signature | + +-------+ + + + | Albumin, | 4.7 | | EXTERNAL | | | External | | | LAB | | + +-------+ + + + + +---------+ + + | Performing | Address | City/State/Zipcode | Phone Number | | Organization | | | | + +---------+ + + | EXTERNAL LAB | | | | + +---------+ + + External Lab: Phosphorus (11/30/2018) + +-------+ + + + | Component | Value | Ref Range | Performed | Pathologist | | | | | At | Signature | + +-------+ + + + | Phosphorus, | 2.9 | | EXTERNAL | | | External | | | LAB | | + +-------+ + + + + +---------+ + + | Performing | Address | City/State/Zipcode | Phone Number | | Organization | | | | + +---------+ + + | EXTERNAL LAB | | | | + +---------+ + + External Lab: Calcium (11/30/2018) + +-------+ + + + | Component | Value | Ref Range | Performed | Pathologist | | | | | At | Signature | + +-------+ + + + | Calcium, | 9.4 | | EXTERNAL | | | External | | | LAB | | + +-------+ + + + + +---------+ + + | Performing | Address | City/State/Zipcode | Phone Number | | Organization | | | | + +---------+ + + | EXTERNAL LAB | | | | + +---------+ + + External Lab: Carbon Dioxide (11/30/2018) + +-------+ + + + | Component | Value | Ref Range | Performed | Pathologist | | | | | At | Signature | + +-------+ + + + | Carbon | 24 | | EXTERNAL | | | Dioxide, | | | LAB | | | External | | | | | + +-------+ + + + + +---------+ + + | Performing | Address | City/State/Zipcode | Phone Number | | Organization | | | | + +---------+ + + | EXTERNAL LAB | | | | + +---------+ + + External Lab: Chloride (11/30/2018) + +-------+ + + + | Component [...] + +---------+ + + External Lab: Potassium (11/30/2018) + +-------+ + + + | Component | Value | Ref Range | Performed | Pathologist | | | | | At | Signature | + +-------+ + + + | Potassium, | 4.2 | | EXTERNAL | | | External | | | LAB | | + +-------+ + + + + +---------+ + + | Performing | Address | City/State/Zipcode | Phone Number | | Organization | | | | + +---------+ + + | EXTERNAL LAB | | | | + +---------+ + + External Lab: Sodium (11/30/2018) + +-------+ + + + | Component [...] + +---------+ + + External Lab: eGFR (11/30/2018) + +-------+ + + + | Component | Value | Ref Range | Performed | Pathologist | | | | | At | Signature | + +-------+ + + + | eGFR, | 25 | | EXTERNAL | | | External [...] + +---------+ + + External Lab: Creatinine (11/30/2018) + +-------+ + + + | Component | Value | Ref Range | Performed | Pathologist | | | | | At | Signature | + +-------+ + + + | Creatinine, | 2.73 | | EXTERNAL | | | External [...]
--- OUTSIDE RECORDS SUMMARY | ~2019-12-22 | XMS | Encounter Summary ---
Demographics + + + | Address | [address] [place] [address] | | | [place] [address] | + + + | Home Phone | | + + + | Preferred Language | Unknown | + + + | Marital Status | | + + + | Presybeterian Affiliation | CHR | + + + [...] Team Providers + +------+ + | Care Inspector Assemblies And Installations Name | Role | Phone | + [...] | +--------+ + + + + | 11/07/ | Documentati | Clinical | Thi Aden, | Tx Recommendation | | 2016 | on | Transplant Services | RN [address] | [facility] | | | | [address] | [address] | | | | | Kait Barrios [place], | [place], [place] | | | | | [place] [address] | [address] | | | | | [phone] | | | +--------+ + + + [...]
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
--- OUTSIDE RECORDS SUMMARY | ~2019-12-22 | XMS | Encounter Summary ---
Demographics + + + | Address | [address] [place] [address] | | | [place] [address] | + + + | Home Phone | | + + + | Preferred Language | Unknown | + + + | Marital Status | | + + + | Christian Affiliation | CHR | + + + [...] Team Providers + +------+ + | Care Editing Internship Name | Role | Phone | + +------+ + | Hai Holman MD | PCP | | + +------+ + Encounter Details +--------+ + + + + | Date | Type | Department | Care Team | Description | +--------+ + + + + | 09/06/ | Hospital | Cardiac | Sj, Car Ecg Tech | | | 2016 | Encounter | Non-Invasive Testing | [address] | | | | | at [address] [place] | [facility] | | | | | [address] | [place] [address] | | | | | [address] | | | | | | [place], [address] [place] [address] | | | | | | [place], [place] | | | | | | [address] | | | | | | [phone] | | | +--------+ + + + [...] | | 16 | | | release (DR/EC) | | | | | | + + + +---------+ + + documented as of this encounter Plan of Treatment Not on filedocumented as of this encounter Procedures + +--------+ + + + | Procedure Name | Priori | Date/Time | Associated Diagnosis | Comments | | | ty | | | | + +--------+ + + + | 12 LEAD ECG | Routin | 09/06/2015 | Chronic kidney | Results for this | | | e | 9:45 AM | disease, stage III | procedure are in the | | | | PST | (moderate) ([facility]) | results section. | | | | | Acute interstitial | | | | | | nephritis | | + +--------+ + + + documented in this encounter Results 12 LEAD ECG (09/06/2015 9:45 AM PST) + + + + + + | Component | Value | Ref Range | Performed | Pathologist | | | | | At | Signature | + + + + + + | VENTRICULAR | 70 | bpm | [facility] | | | RATE | | | OF | | | | | | CARDIOLOGY | | + + + + + + | ATRIAL RATE | 70 | bpm | [facility] | | | | | | OF | | | | | | CARDIOLOGY | | + + + + + + | P-R | 144 | ms | [facility] | | | INTERVAL | | | OF | | | | | | CARDIOLOGY | | + + + + + + | P AXIS | 60 | deg | [facility] | | | | | | OF | | | | | | CARDIOLOGY | | + + + + + + | QRS | 94 | ms | [facility] | | | DURATION | | | OF | | | | | | CARDIOLOGY | | + + + + + + | QT | 396 | ms | [facility] | | | | | | OF | | | | | | CARDIOLOGY | | + + + + + + | QTC-BAZETT | 428 | ms | [facility] | | | | | | OF | | | | | | CARDIOLOGY | | + + + + + + | R AXIS | 12 | deg | [facility] | | | | | | OF | | | | | | CARDIOLOGY | | + + + + + + | T AXIS | 57 | deg | [facility] | | | | | | OF | | | | | | CARDIOLOGY | | + + + + + + | ECG | SINUS RHYTHM- NORMAL ECG | | [facility] | | | IMPRESSION | -Electronically signed | | OF | | | | by: LIBAN BOYD | | CARDIOLOGY | | | | 09-06-2015 10:15:06 | | | | + + + [...] + + + + + | [facility] | [address] | [place], [place] | | | CARDIOLOGY | [address] | [address] | | + + + + + [...]
--- OUTSIDE RECORDS SUMMARY | ~2019-12-22 | XMS | Encounter Summary ---
Demographics + + + | Address | [address] [place] [address] | | | [place] [address] | + + + | Home Phone | | + + + | Preferred Language | Unknown | + + + | Marital Status | | + + + | Restorationism Affiliation | CHR | + + + [...] Providers + +------+ + | Care Business Planner Name | Role | Phone | + +------+ + | Hai Holman MD | PCP | | + +------+ + Reason for Visit + + + | Reason | Comments | + + + | Tx Recommendation | EGD and colonoscopy | | Tracking | | + + + Encounter Details +--------+ + + + + | Date | Type | Department | Care Team | Description | +--------+ + + + + | 02/03/ | Telephone | Clinical | Thi Aden, | Tx Recommendation | | 2015 | | Transplant Services | RN [address] | Tracking (EGD and | | | | [address] | [address] | colonoscopy) | | | | K[place] Bar[place], | [place], [place] | | | | | [place] [address] | [address] | | | | | [phone] | | | +--------+ + + + [...]
--- OUTSIDE RECORDS SUMMARY | ~2019-12-22 | XMS | Encounter Summary ---
Demographics + + + | Address | [address] | | | [place] [address] | + + + | Home Phone | | + + + | Preferred Language | Unknown | + + + | Marital Status | | + + + | Samaritan Affiliation | 1041 | + + + | Race | Unknown | + + + | Ethnic Group | Unknown | + + + Author + + + | Author | [facility] | | | and [place] | + + + | Organization | [facility] | [...] [place], [place] | | | | | [address] | | + + + + + | Misty Boateng | ECON | [address] | | | | | [place] | | | | | [address] | | + + + + + Care Team Providers + +------+ + | Care Taximeter Repairer Name | Role | Phone | + [...] | | | | | | | AR | | | | | | | COLONOSCOPY | | | | | | | FLX DX | | | | | | | W/COLLJ SPEC | | | | | | | WHEN PFRMD | | | | | | | AR | | | | | | | [...] + + + + | 11/07/ | Hospital | [facility] | Pan Jhaveri MD | | | 2016 | Encounter | [facility] | [address] | | | | | [address] | [place], [place] | | | | | [place], [place] | [address] | | | | | [address] | [phone] | | | | | [phone] | | | +--------+ + + + [...] the test. This includes: All prescription medicines Zspr-rea-ownvrhd medicines such as aspirin or ibuprofen Street [...] in someone with heart or lung disease 0193-5042 [employer]. [address] [place] [address]. All righ ts reserved. This information is [...] tear in the colon Risks of anesthesia [phone] [employer]. [address] [place] [address]. All righ ts reserved. This information is [...] | 60 | 5 | 08/29/19 | 12/28/201 | | 12.5 mg tablet | mouth [...] | 03/20/ | Office | Nephrology | Michelle Christine Tirado, | | | 2019 | Visit | | [address] | | | | | | [address] [place] | | | | | | [place] [address] | | | | | | [phone] | | | | | | | [...] | | insensitive. Clinical correlation is necessary. [facility]:[id number] | | | GROSS DESCRIPTION: A. [...] processing and slide preparation were performed by [employer] | | | [employer], [address] [place] [address] | | | (Gasateria Attendant: Stacie LinOLos.; CLIA#: [id number]). | | | Professional interpretation was performed by [employer], [address] | | | [address] [place] [address] (Gasateria Attendant: | | | Paulie Krishnamurthy D.O.; CLIA#: [id number]). Diagnostician: | | | Enzo Kerr MD [...]
--- OUTSIDE RECORDS SUMMARY | ~2019-12-22 | XMS | Encounter Summary ---
Demographics + + + | Address | [address] [place] [address] | | | [place] [address] | + + + | Home Phone | | + + + | Preferred Language | Unknown | + + + | Marital Status | | + + + | Faith Affiliation | CHR | + + + | Race | White | + + + | Ethnic Group | Not or | + + + Author + + + | Author | [facility] | + + + | Organization | [facility] | + + + | Address | Unknown | + + + | Phone | Unavailable | + + + Support + + +---------+ + | Name | Relationship | Address | Phone | + + +---------+ + | Misty Oneill | ECON | Unknown | | + + +---------+ + Care Team Providers + +------+ + | Care Cd Mixer Name | Role | Phone | + +------+ + | Jt Perkins MD | PCP | | + +------+ + Reason for Visit + + + | Reason | Comments | + + + | KP Waitlist | request for contact | + + + Encounter Details +--------+ + + + + | Date | Type | Department | Care Team | Description | +--------+ + + + + | 03/04/ | Telephone | Clinical | Treptow, Thi L, | Waitlist (request | | 2019 | | Transplant Services | RN [address] | for contact) | | | | [address] | [address] | | | | | Kait Barrios [place], | [place], [place] | | | | | [place] [address] | [address] | | | | | [phone] | | | +--------+ + + + [...]
--- OUTSIDE RECORDS SUMMARY | ~2019-12-22 | XMS | Encounter Summary ---
Demographics + + + | Address | [address] [place] [address] | | | [place] [address] | + + + | Home Phone | | + + + | Preferred Language | Unknown | + + + | Marital Status | | + + + | Moravian Affiliation | CHR | + + + | Race | White | + + + | Ethnic Group | Not or | + + + Author + + + | Author | [facility] | + + + | Organization | [facility] | + + + | Address | Unknown | + + + | Phone | Unavailable | + + + Support + + +---------+ + | Name | Relationship | Address | Phone | + + +---------+ + | Misty Oneill | ECON | Unknown | | + + +---------+ + Care Team Providers + +------+ + | Care Chemical Process Engineer Name | Role | Phone | + +------+ + | Hai Holman MD | PCP | | + +------+ + Reason for Visit + + + | Reason | Comments | + + + | Committee Review | | | Decision | | + + + Encounter Details +--------+ + + + + | Date | Type | Department | Care Team | Description | +--------+ + + + + | 09/11/ | Committee | Clinical | Thi Aden, | Committee Review | | 2016 | Review | Transplant Services | RN [address] | Decision | | | | [address] | [address] | | | | | Kait Barrios [place], | [place], [place] | | | | | [place] [address] | [address] | | | | | [phone] | | | +--------+ + + + [...]
--- OUTSIDE RECORDS SUMMARY | ~2019-12-22 | XMS | Encounter Summary ---
Demographics + + + | Address | [address] | | | [place] [address] | + + + | Home Phone | | + + + | Preferred Language | Unknown | + + + | Marital Status | | + + + | Judaism Affiliation | 1041 | + + + | Race | Unknown | + + + | Ethnic Group | Unknown | + + + Author + + + | Author | [facility] | | | and [place] | + + + | Organization | [facility] | | | and [place] | + + + | Address | Unknown | + + + | Phone | Unavailable | + + + Support + + + + + | Name | Relationship | Address | Phone | + + + + + | Ryan Oneill | ECON | [place], [place] | | | | | [address] | | + + + + + | Misty Boateng | ECON | [address] | | | | | [place], [place] | | | | | [address] | | + + + + + Care Team Providers + +------+ + | Care Medication Aid Name | Role | Phone | + +------+ + PCP | Unavailable | + +------+ + Encounter Details +--------+ + + + + | Date | Type | Department | Care Team | Description | +--------+ + + + + | 12/02/ | Hospital | [facility] | Conversion | Migraine without | | 2016 | Encounter | [facility] | Transaction, | aura and without | | | | [address] | Provider Unknown | status migrainosus, | | | | [place], [place] | | not intractable | | | | [address] | (Fax) | | | | | [phone] | | | +--------+ + + + [...] | | | [facility] | Instructions. 1999 | | | 16 | 7 | [...] | | | | | | [place] [address] | | | | | | [phone] | | | | | | | | +--------+---------+ + + + documented as of this encounter Procedures + +--------+ + + + | Procedure Name | Priori | Date/Time | Associated Diagnosis | Comments | | | ty | | | | + +--------+ + + + | MRI ANGIOGRAM HEAD | Routin | 12/03/2015 | | Results for this | | WO CONTRAST | e | 10:53 AM | | procedure are in the | | | | PDT | | results section. | + +--------+ + + + documented in this encounter Results MRI Angiogram Head wo Contrast (12/03/2015 10:53 AM PDT) + + | Specimen | [...] the brain/intracranial | | | contents 2. Imcp-mu-hppdnn intracranial MRA, without contrast | | | [...] with some FLAIR artifact in typical distributions Syyz-gu-gjwqqt | | | intracranial MRA reveals a very diminutive right vertebral artery, | | | there is some basilar contribution, but not much. Going back to the CT | | | angiogram from April 2002-this is stable. The posterior | | | communicating vessels are either very diminutive or absent. There | | | is good symmetric rvzm-mj-nnxrvg flow in the carotid siphons, and the [...] of the | | brain/intracranial contents 2. Hxec-cs-nlpvkv intracranial MRA, without contrast No | | [...] with some FLAIR artifact in typical distributions Qboy-ez-jwfbee intracranial | | MRA reveals a very diminutive right vertebral artery, there is some basilar | | contribution, but not much. Going back to the CT angiogram from April 2002-this is | | stable. The posterior communicating vessels are either very diminutive or absent. There | | is good symmetric oumy-to-tscnrt flow in the carotid siphons, and the [...] status | | migrainosus | + + documented in this encounter"
--- OUTSIDE RECORDS SUMMARY | ~2019-12-22 | XMS | Encounter Summary ---
Demographics + + + | Address | [address] | | | [place] [address] | + + + | Home Phone | | + + + | Preferred Language | Unknown | + + + | Marital Status | | + + + | Caodaism Affiliation | 1041 | + + + | Race | Unknown | + + + | Ethnic Group | Unknown | + + + Author + + + | Author | [facility] | | | and [place] | + + + | Organization | [facility] | | | and [place] | + + + | Address | Unknown | + + + | Phone | Unavailable | + + + Support + + + + + | Name | Relationship | Address | Phone | + + + + + | Ryan Oneill | ECON | [place], [place] | | | | | [address] | | + + + + + | Misty Boateng | ECON | [address] | | | | | [place] | | | | | [address] | | + + + + + Care Team Providers + +------+ + | Care Subsea Engineer Name | Role | Phone | + +------+ + | Jt Perkins MD | PCP | | + +------+ + Encounter Details +--------+ + + + + | Date | Type | Department | Care Team | Description | +--------+ + + + + | 08/16/ | Abstract | [facility] | Chrisitne Martinez W, | | | 2019 | | NEPHROLOGY [address] | [address] | | | | | [address] | [address] [place] | | | | | [place], [place] | [place] [address] | | | | | [address] | [phone] | | | | | [phone] | | | +--------+ + + + [...] 2019 | Visit | | [address] | | | | | | [address] [place] | | | | | | [place] [address] | | | | | | [phone] | | | | | | | | +--------+---------+ + + + documented as of this encounter Procedures + +--------+ + + + | Procedure Name | Priori | Date/Time | Associated Diagnosis | Comments | | | ty | | | | + +--------+ + + + | EXTERNAL LAB: ANIVAL | Routin | 08/08/2019 | | Results for this | | | e | | | procedure are in the | | | | | | results section. | + +--------+ + + + | EXTERNAL LAB: | Routin | 08/08/2019 | | Results for this | | GLUCOSE | e | | | procedure are in the | | | | | | results section. | + +--------+ + + + | EXTERNAL LAB: | Routin | 08/08/2019 | | Results for this | | ALBUMIN | e | | | procedure are in the | | | | | | results section. | + +--------+ + + + | EXTERNAL LAB: | Routin | 08/08/2019 | | Results for this | | PHOSPHORUS | e | | | procedure are in the | | | | | | results section. | + +--------+ + + + | EXTERNAL LAB: | Routin | 08/08/2019 | | Results for this | | CALCIUM | e | | | procedure are in the | | | | | | results section. | + +--------+ + + + | EXTERNAL LAB: CARBON | Routin | 08/08/2019 | | Results for this | | DIOXIDE | e | | | procedure are in the | | | | | | results section. | + +--------+ + + + | EXTERNAL LAB: | Routin | 08/08/2019 | | Results for this | | CHLORIDE | e | | | procedure are in the | | | | | | results section. | + +--------+ + + + | EXTERNAL LAB: | Routin | 08/08/2019 | | Results for this | | POTASSIUM | e | | | procedure are in the | | | | | | results section. | + +--------+ + + + | EXTERNAL LAB: SODIUM | Routin | 08/08/2019 | | Results for this | | | e | | | procedure are in the | | | | | | results section. | + +--------+ + + + | EXTERNAL LAB: CBC | Routin | 08/08/2019 | | Results for this | | | e | | | procedure are in the | | | | | | results section. | + +--------+ + + + | EXTERNAL LAB: | Routin | 08/08/2019 | | Results for this | | TRIGLYCERIDES | e | | | procedure are in the | | | | | | results section. | + +--------+ + + + | EXTERNAL LAB: | Routin | 08/08/2019 | | Results for this | | CHOLESTEROL, HDL | e | | | procedure are in the | | | | | | results section. | + +--------+ + + + | EXTERNAL LAB: | Routin | 08/08/2019 | | Results for this | | CHOLESTEROL, TOTAL | e | | | procedure are in the | | | | | | results section. | + +--------+ + + + | EXTERNAL LAB: | Routin | 08/08/2019 | | Results for this | | CHOLESTEROL, LDL | e | | | procedure are in the | | | | | | results section. | + +--------+ + + + | EXTERNAL LAB: EGFR | Routin | 08/08/2019 | | Results for this | | | e | | | procedure are in the | | | | | | results section. | + +--------+ + + + | EXTERNAL LAB: | Routin | 08/08/2019 | | Results for this | | CREATININE | e | | | procedure are in the | | | | | | results section. | + +--------+ + + + documented in this encounter Results External Lab: BUN (08/08/2019) + +-------+ + + + | Component | Value | Ref Range | Performed | Pathologist | | | | | At | Signature | + +-------+ + + + | BUN, | 32 | | | | | External | | | | | + +-------+ + + + External Lab: Glucose (08/08/2019) + +-------+ + + + | Component | Value | Ref Range | Performed | Pathologist | | | | | At | Signature | + +-------+ + + + | Glucose, | 98 | | | | | External | | | | | + +-------+ + + + External Lab: Albumin (08/08/2019) + +-------+ + + + | Component | Value | Ref Range | Performed | Pathologist | | | | | At | Signature | + +-------+ + + + | Albumin, | 4.3 | | | | | External | | | | | + +-------+ + + + External Lab: Phosphorus (08/08/2019) + +-------+ + + + | Component | Value | Ref Range | Performed | Pathologist | | | | | At | Signature | + +-------+ + + + | Phosphorus, | 3.4 | | | | | External | | | | | + +-------+ + + + External Lab: Calcium (08/08/2019) + +-------+ + + + | Component | Value | Ref Range | Performed | Pathologist | | | | | At | Signature | + +-------+ + + + | Calcium, | 9.1 | | | | | External | | | | | + +-------+ + + + External Lab: Carbon Dioxide (08/08/2019) + +-------+ + + + | Component | Value | Ref Range | Performed | Pathologist | | | | | At | Signature | + +-------+ + + + | Carbon | 27 | | | | | Dioxide, | | | | | | External | | | | | + +-------+ + + + External Lab: Chloride (08/08/2019) + +-------+ + + + | Component | Value | Ref Range | Performed | Pathologist | | | | | At | Signature | + +-------+ + + + | Chloride, | 103 | | | | | External | | | | | + +-------+ + + + External Lab: Potassium (08/08/2019) + +-------+ + + + | Component | Value | Ref Range | Performed | Pathologist | | | | | At | Signature | + +-------+ + + + | Potassium, | 4.4 | | | | | External | | | | | + +-------+ + + + External Lab: Sodium (08/08/2019) + +-------+ + + + | Component | Value | Ref Range | Performed | Pathologist | | | | | At | Signature | + +-------+ + + + | Sodium, | 137 | | | | | External | | | | | + +-------+ + + + External Lab: CBC (08/08/2019) + +-------+ + + + | Component | Value | Ref Range | Performed | Pathologist | | | | | At | Signature | + +-------+ + + + | WBC, | 4.6 | | | | | External | | | | | + +-------+ + + + | HGB, | 13.8 | | | | | External | | | | | + +-------+ + + + | HCT, | 40.3 | | | | | External | | | | | + +-------+ + + + | PLT, | 235 | | | | | External | | | | | + +-------+ + + + | RBC, | 4.36 | | | | | External | | | | | + +-------+ + + + | MCV, | 92 | | | | | External | | | | | + +-------+ + + + | RDW, | 14 | | | | | External | | | | | + +-------+ + + + External Lab: Triglycerides (08/08/2019) + +-------+ + + + | Component | Value | Ref Range | Performed | Pathologist | | | | | At | Signature | + +-------+ + + + | Triglycerid | 179 | | | | | es, | | | | | | External | | | | | + +-------+ + + + + + | Specimen | + + | Blood | + + External Lab: Cholesterol, HDL (08/08/2019) + +-------+ + + + | Component | Value | Ref Range | Performed | Pathologist | | | | | At | Signature | + +-------+ + + + | HDL | 58 | mg/dl | | | | Cholesterol | | | | | | , External | | | | | + +-------+ + + + + + | Specimen | + + | Blood | + + External Lab: Cholesterol, Total (08/08/2019) + +-------+ + + + | Component | Value | Ref Range | Performed | Pathologist | | | | | At | Signature | + +-------+ + + + | Cholesterol | 212 | mg/dl | | | | , Total, | | | | | | External | | | | | + +-------+ + + + + + | Specimen | + + | Blood | + + External Lab: Cholesterol, LDL (08/08/2019) + +-------+ + + + | Component | Value | Ref Range | Performed | Pathologist | | | | | At | Signature | + +-------+ + + + | LDL | 118 | | | | | Cholesterol | | | | | | , Direct, | | | | | | External | | | | | + +-------+ + + + + + | Specimen | + + | Blood | + + External Lab: eGFR (08/08/2019) + +-------+ + + + | Component | Value | Ref Range | Performed | Pathologist | | | | | At | Signature | + +-------+ + + + | eGFR, | 23 | | | | | External | | | | | + +-------+ + + + + + | Specimen | + + | Blood | + + External Lab: Creatinine (08/08/2019) + +-------+ + + + | Component | Value | Ref Range | Performed | Pathologist | | | | | At | Signature | + +-------+ + + + | Creatinine, | 2.95 | | | | | External | | | | | + +-------+ + + + + + | Specimen | + + | Blood | + + documented in this encounter Visit Diagnoses Not on filedocumented in this encounter"
--- OUTSIDE RECORDS SUMMARY | ~2019-12-22 | XMS | Encounter Summary ---
Demographics + + + | Address | [address] [place] [address] | | | [place] [address] | + + + | Home Phone [...] Team Providers + +------+ + | Care Roping Tender Name | Role | Phone | [...] | | Medicine Clinic at | RN [place], [place] | | | | | Formerly Named [facility] | [address] | | | | | [address] | | | | | | Mail Code: OC8PM | | | | | | [facility] | | | | | | and Healing, | | | | | | [address] | | | | | | [place], [place] | | | | | | [address] | | | | | | [phone] | | | +--------+ + + + [...]
--- OUTSIDE RECORDS SUMMARY | ~2019-12-22 | XMS | Encounter Summary ---
Demographics + + + | Address | [address] [place] [address] | | | [place] [address] | + + + | Home Phone | | + + + | Preferred Language | Unknown | + + + | Marital Status | | + + + | Denominational Affiliation | CHR | + + + | Race | White | + + + | Ethnic Group | Not or | + + + Author + + + | Author | [facility] | + + + | Organization | [facility] | + + + | Address | Unknown | + + + | Phone | Unavailable | + + + Support + + +---------+ + | Name | Relationship | Address | Phone | + + +---------+ + | Misty Oneill | ECON | Unknown | | + + +---------+ + Care Team Providers + +------+ + | Care Horticultural Services Supervisor Name | Role | Phone | [...] on | | | | Kait Barrios [place], | [place], [place] | ) | | | | [place] [address] | [address] | | | | | [phone] | | | +--------+ + + + [...]
--- OUTSIDE RECORDS SUMMARY | ~2019-12-22 | XMS | Encounter Summary ---
Demographics + + + | Address | [address] [place] [address] | | | [place] [address] | + + + | Home Phone | | + + + | Preferred Language | Unknown | + + + | Marital Status | | + + + | Tenriism Affiliation | CHR | + + + | Race | White | + + + | Ethnic Group | Not or | + + + Author + + + | Author | [facility] | + + + | Organization | [facility] | + + + | Address | Unknown | + + + | Phone | Unavailable | + + + Support + + +---------+ + | Name | Relationship | Address | Phone | + + +---------+ + | Misty Oneill | ECON | Unknown | | + + +---------+ + Care Team Providers + +------+ + | Care Custom Motorcycle Painter Name | Role | Phone | + +------+ + | Hai Holman MD | PCP | | + +------+ + Reason for Visit Consultation (Routine) +--------+--------+ + + + + | Status | Reason | Specialty | Diagnoses / | Referred By | Referred To | | | | | Procedures | Contact | Contact | +--------+--------+ + + + + | Closed | | Kidney | Diagnoses | Michelle, | Bj, | | | | Transplant | Chronic | MD Christine | MD Santos | | | | | kidney | [place] | [address] [facility] | | | | | disease, | [address] | [address] | | | | | stage 4 | Nephrology | [address] [place], | | | | | (severe) | [address] | [place] | | | | | Illness, | [address] | [address] | | | | | unspecified | [address] | Phone: | | | | | | [place], | [phone] | | | | | | [place] [address] | Fax: | | | | | | Phone: | [phone] | | | | | | [phone] | | | | | | | Fax: | | | | | | | [phone] | | +--------+--------+ + + + + Encounter Details +--------+ + + + + | Date | Type | Department | Care Team | Description | +--------+ + + + + | 09/06/ | Hospital | Diagnostic | | | | 2015 | Encounter | Radiology at [facility] | | | | | | [address] | | | | | | Loop Physician[facility] | | | | | | [place], [address] [place] [address] | | | | | | [place], [place] | | | | | | [address] | | | | | | [phone] | | | +--------+ + + + [...] + +--------+ + + + | US ABDOMEN COMPLETE | Routin | 09/06/2015 | Chronic kidney | Results for this | | | e | 8:37 AM | disease, stage III | procedure are in the | | | | PST | (moderate) ([facility]) | results section. | | | | | Acute interstitial | | | | | | nephritis | | + +--------+ + + + documented in this encounter Results US ABDOMEN COMPLETE (09/06/2015 8:37 AM PST) + + + + + + | Component | Value | Ref Range | Performed | Pathologist | | | | | At | Signature | + + + + + + | US ABDOMEN | EXAM: US ABDOMEN | | | | | COMPLETE | COMPLETE. HISTORY: | | | | | | Kidney transplant | | | | | | evaluation. COMPARISON: | | | | | | None available | | | | | | TECHNIQUE: Abdominal | | | | | | ultrasound performed. | | | | | | FINDINGS: Liver: The | | | | | | echotexture is | | | | | | homogeneous. No focal | | | | | | hepatic abnormality | | | | | | isidentified. The main | | | | | | portal vein measures 10 | | | | | | mm in diameter. Biliary: | | | | | | The gallbladder is not | | | | | | visualized. No biliary | | | | | | dilatation. The | | | | | | commonduct measures 5 mm | | | | | | in diameter. Pancreas: | | | | | | Overlying bowel gas | | | | | | partially obscures the | | | | | | pancreas. The | | | | | | visualizedhead and body | | | | | | are unremarkable. | | | | | | Kidneys and Bladder: The | | | | | | right kidney measures | | | | | | 9.4 cm in length. The | | | | | | leftmeasures 9.6 cm in | | | | | | length. Renal | | | | | | parenchymal echogenicity | | | | | | is | | | | | | increasedbilaterally. | | | | | | Bilateral nodular and | | | | | | variably thinned cortex | | | | | | is noted. Nosuspicious | | | | | | renal mass, stone, or | | | | | | hydronephrosis is seen. | | | | | | The bladder | | | | | | isunremarkable, with a | | | | | | post void residual of 7 | | | | | | mL. Spleen: The spleen | | | | | | is normal in | | | | | | echogenicity and | | | | | | measures 12.3 cm in | | | | | | length. Other: The | | | | | | visualized aorta and IVC | | | | | | are within normal | | | | | | limits. No free fluid. | | | | | | IMPRESSION: Bilateral | | | | | | atrophic kidneys with | | | | | | increased renal | | | | | | parenchymal | | | | | | echogenicity,representin | | | | | | g medical renal disease. | | | | | | Portal vein diameter | | | | | | measures 10 mm. Post | | | | | | void residual measures 7 | | | | | | mm. Attending | | | | | | Radiologists: HUGO | | | | | | KEDAR JOSEuthor: | | | | | | GERMAINE LAWRENCE MD I | | | | | | personally reviewed the | | | | | | images and, if | | | | | | necessary, edited the | | | | | | report. I agreewith the | | | | | | report as now presented. | | | | | | | | | | | | Final/Electronically | | | | | | signed / HUGO | | | | | | REBECA 09/06/2015 8:51 | | | | | | AM | | | | + + + + + + + + | Specimen | + + | | + + + +---------+ + + | Performing | Address | City/State/Zipcode | Phone Number | | Organization | | | | + +---------+ + + | [facility] | | | | | RADIOLOGY | | | | + +---------+ [...]
--- OUTSIDE RECORDS SUMMARY | ~2019-12-22 | XMS | Encounter Summary ---
Demographics + + + | Address | [address] | | | [place] [address] | + + + | Home Phone [...] [place], [place] | | | | | [address] | | + + + + + | Misty Boateng | ECON | [address] | | | | | [place] | | | | | [address] | | + + + + + Care Team Providers + +------+ + | Care Catalyst Operator Gasoline Name | Role | Phone | + +------+ + PCP | Unavailable | + +------+ + Reason for Visit + + + | Reason | Comments | + + + | Hypertension | | + + + Encounter Details +--------+ + + + + | Date | Type | Department | Care Team | Description | +--------+ + + + + | 08/20/ | [facility] | [facility] | Christine Martinez, | Hypertension | | 2016 | | NEPHROLOGY [address] | | | | | [address] | [address] [place] | | | | | [place], [place] | [place] [address] | | | | | [address] | [phone] | | | | | [phone] | | | +--------+ + + + [...] 2020 | Visit | | [address] | | | | | | [address] [place] | | | | | | [place] [address] | | | | | | [phone] | | | | | | | | +--------+---------+ + + + documented as of this encounter Visit Diagnoses Not on filedocumented in this encounter"
--- OUTSIDE RECORDS SUMMARY | ~2019-12-22 | XMS | Encounter Summary ---
Demographics + + + | Address | [address] | | | [place] [address] | + + + | Home Phone | | + + + | Preferred Language | Unknown | + + + | Marital Status | | + + + | Restorationist Affiliation | 1041 | + + + | Race | Unknown | + + + | Ethnic Group | Unknown | + + + Author + + + | Author | [facility] | | | and [place] | + + + | Organization | [facility] | | | and [place] | + + + | Address | Unknown | + + + | Phone | Unavailable | + + + Support + + + + + | Name | Relationship | Address | Phone | + + + + + | Ryan Oneill | ECON | [place], [place] | | | | | [address] | | + + + + + | Misty Boateng | ECON | [address] | | | | | [place], [place] | | | | | [address] | | + + + + + Care Team Providers + +------+ + | Care Drying Unit Felting Machine Operator Name | Role | Phone | + +------+ + PCP | Unavailable | + +------+ + Encounter Details +--------+ + + + + | Date | Type | Department | Care Team | Description | +--------+ + + + + | 05/28/ | Abstract | [facility] | Christine Martinez W, | | | 2014 | | NEPHROLOGY [address] | MD [address] | | | | | [address] | [address] [place] | | | | | [place], [place] | [place] [address] | | | | | [address] | [phone] | | | | | [phone] | | | +--------+ + + + [...] | | | | | [place] [address] | | | | | | [phone] | | | | | | | | +--------+---------+ + + + documented as of this encounter Procedures + +--------+ + + + | Procedure Name | Priori | Date/Time | Associated Diagnosis | Comments | | | ty | | | | + +--------+ + + + | EXTERNAL LAB: BUN | Routin | 05/22/2015 | | Results for this | | | e | | | procedure are in the | | | | | | results section. | + +--------+ + + + | EXTERNAL LAB: | Routin | 05/22/2015 | | Results for this | | GLUCOSE | e | | | procedure are in the | | | | | | results section. | + +--------+ + + + | EXTERNAL LAB: ALT | Routin | 05/22/2015 | | Results for this | | | e | | | procedure are in the | | | | | | results section. | + +--------+ + + + | EXTERNAL LAB: AST | Routin | 05/22/2015 | | Results for this | | | e | | | procedure are in the | | | | | | results section. | + +--------+ + + + | EXTERNAL LAB: | Routin | 05/22/2015 | | Results for this | | ALKALINE PHOSPHATASE | e | | | procedure are in the | | | | | | results section. | + +--------+ + + + | EXTERNAL LAB: | Routin | 05/22/2015 | | Results for this | | BILIRUBIN, TOTAL | e | | | procedure are in the | | | | | | results section. | + +--------+ + + + | EXTERNAL LAB: | Routin | 05/22/2015 | | Results for this | | ALBUMIN | e | | | procedure are in the | | | | | | results section. | + +--------+ + + + | EXTERNAL LAB: | Routin | 05/22/2015 | | Results for this | | PROTEIN, TOTAL | e | | | procedure are in the | | | | | | results section. | + +--------+ + + + | EXTERNAL LAB: | Routin | 05/22/2015 | | Results for this | | CALCIUM | e | | | procedure are in the | | | | | | results section. | + +--------+ + + + | EXTERNAL LAB: CARBON | Routin | 05/22/2015 | | Results for this | | DIOXIDE | e | | | procedure are in the | | | | | | results section. | + +--------+ + + + | EXTERNAL LAB: | Routin | 05/22/2015 | | Results for this | | CHLORIDE | e | | | procedure are in the | | | | | | results section. | + +--------+ + + + | EXTERNAL LAB: | Routin | 05/22/2015 | | Results for this | | POTASSIUM | e | | | procedure are in the | | | | | | results section. | + +--------+ + + + | EXTERNAL LAB: SODIUM | Routin | 05/22/2015 | | Results for this | | | e | | | procedure are in the | | | | | | results section. | + +--------+ + + + | EXTERNAL LAB: | Routin | 05/22/2015 | | Results for this | | VITAMIN D, | e | | | procedure are in the | | 25-HYDROXY | | | | results section. | + +--------+ + + + | EXTERNAL LAB: IRON | Routin | 05/22/2015 | | Results for this | | TOTAL | e | | | procedure are in the | | | | | | results section. | + +--------+ + + + | EXTERNAL LAB: IRON | Routin | 05/22/2015 | | Results for this | | SATURATION | e | | | procedure are in the | | | | | | results section. | + +--------+ + + + | EXTERNAL LAB: IRON | Routin | 05/22/2015 | | Results for this | | BINDING CAPACITY | e | | | procedure are in the | | | | | | results section. | + +--------+ + + + | EXTERNAL LAB: FLORENCE | Routin | 05/22/2015 | | Results for this | | | e | | | procedure are in the | | | | | | results section. | + +--------+ + + + | EXTERNAL LAB: CBC | Routin | 05/22/2015 | | Results for this | | | e | | | procedure are in the | | | | | | results section. | + +--------+ + + + | EXTERNAL LAB: EGFR | Routin | 05/22/2015 | | Results for this | | | e | | | procedure are in the | | | | | | results section. | + +--------+ + + + | EXTERNAL LAB: | Routin | 05/22/2015 | | Results for this | | CREATININE | e | | | procedure are in the | | | | | | results section. | + +--------+ + + + | HC DSDNA ANTIBODY | Routin | 05/22/2015 | | Results for this | | IGG(ARUP) | e | | | procedure are in the | | | | | | results section. | + +--------+ + + + | VITAMIN B-12 | Routin | 05/22/2015 | | Results for this | | | e | | | procedure are in the | | | | | | results section. | + +--------+ + + + documented in this encounter Results HC DSDNA ANTIBODY IGG(DIEGO) (05/22/2015) + + + + + + | Component | Value | Ref Range | Performed | Pathologist | | | | | At | Signature | + + + + + + | dsDNA Ab | None detected | | EXTERNAL | | | Titer | | | LAB | | + + + + + + | BAUTISTA | 0.6 | | EXTERNAL | | | ANTIBODY | | | LAB | | + + + + + + | FRONT END DRIVER | 1 | 100 U/mL | EXTERNAL | | | Autoantibod | | | LAB | | | y | | | | | + + + + + + | SJOGREN'S | 1.1Comment: A | | EXTERNAL | | | AB | | | LAB | | + + + + + + | SJOGREN'S | 0.7Comment: B | | EXTERNAL | | | AB | | | LAB | | + + + + + + | CENTROMERE | 0 | 100 U/mL | EXTERNAL | | | AB IGG | | | LAB | | + + + + + + | SCL-70 | 0 | 100 U/mL | EXTERNAL | | | autoantibod | | | LAB | | | y IgG | | | | | + + + + + + | CHILANGO-1 | 1.5 | | EXTERNAL | | | autoantibod | | | LAB | | | y IgG | | | | | + + + + + + | Histone Ab, | 0.3 | | EXTERNAL | | | IgG | | | LAB | | + + + + + + + + | Specimen | + + | | + + + +---------+ + + | Performing | Address | City/State/Zipcode | Phone Number | | Organization | | | | + +---------+ + + | EXTERNAL LAB | | | | + +---------+ + + Vitamin B-12 (05/22/2015) + + + + + + | Component | Value | Ref Range | Performed | Pathologist | | | | | At | Signature | + + + + + + | Vitamin B12 | 606.4 | | EXTERNAL | | | | | | LAB | | + + + + + + | CRP | 15.90 | mg/dL | EXTERNAL | | | | | | LAB | | + + + + + + | RHEUMATOID | <10 | | EXTERNAL | | | FACTOR | | | LAB | | + + + + + + | Myeloperoxi | 0.1 | | EXTERNAL | | | dase | | | LAB | | | Antibody | | | | | + + + + + + | Proteinase | 0.4 | | EXTERNAL | | | 3 Antibody | | | LAB | | + + + + + + | ADAM Titer | 1:80 | | EXTERNAL | | | | | | LAB | | + + + + + + | ANAPATTERN | speckled | | EXTERNAL | | | | | | LAB | | + + + + + + | Erythrocyte | 42 (A) | 0 - 15 mm/hr | EXTERNAL | | | | | | LAB | | | Sedimentati | | | | | | on Rate | | | | | + + [...] +---------+ + + External Lab: Iron Total (05/22/2015) + +-------+ + + + | Component | Value | Ref Range | Performed | Pathologist | | | | | At | Signature | + +-------+ + + + | Iron, | 51.61 | 37 - 160 | EXTERNAL | [...] +---------+ + + External Lab: Iron Saturation (05/22/2015) + + + + + + | Component | Value | Ref Range | Performed | Pathologist | | | | | At | Signature | + + + + + + | Iron | 17.1 (A) | 20 - 55 | EXTERNAL | | | Saturation, | [...] + + External Lab: Iron Binding Capacity (05/22/2015) + +-------+ + + + | Component | Value | Ref Range | Performed | Pathologist | | | | | At | Signature | + +-------+ + + + | Iron | 302 | 245 - 400 | EXTERNAL | [...] + +---------+ + + External Lab: CBC (05/22/2015) + +--------+ + + + | Component | Value | Ref Range | Performed | Pathologist | | | | | At | Signature | + +--------+ + + + | Neutrophils | 76 | 39 - 80 | EXTERNAL | | | %, | | | LAB | | | External | | | | | + +--------+ + + + | Lymphocytes | 14 (A) | 24 - 44 | EXTERNAL | | | %, | | | LAB | | | External | | | | | + +--------+ + + + | Monocytes | 8.2 | 0 - 12 | EXTERNAL | | | %, External | | | LAB | | + +--------+ + + + | Eosinophils | 1.4 | 0 - 6 | EXTERNAL | [...] | + +---------+ + + External Lab: BUN (05/22/2015) + +--------+ + + + | Component | Value | Ref Range | Performed | Pathologist | | | | | At | Signature | + +--------+ + + + | BUN, | 36 (A) | 6 - 23 | EXTERNAL [...] + +---------+ + + External Lab: Glucose (05/22/2015) + +-------+ + + + | Component [...] + +---------+ + + External Lab: ALT (05/22/2015) + +-------+ + + + | Component | Value | Ref Range | Performed | Pathologist | | | | | At | Signature | + +-------+ + + + | ALT, | 12 | 7 - 52 | EXTERNAL | [...] | + +---------+ + + External Lab: OBDULIO (05/22/2015) + +--------+ + + + | Component | Value | Ref Range | Performed | Pathologist | | | | | At | Signature | + +--------+ + + + | AST, | 12 (A) | 13 - 39 | EXTERNAL [...] +---------+ + + External Lab: Alkaline Phosphatase (05/22/2015) + +-------+ + + + | Component | Value | Ref Range | Performed | Pathologist | | | | | At | Signature | + +-------+ + + + | ALP, | 78 | 30 - 128 | EXTERNAL | | | External | [...] +---------+ + + External Lab: Bilirubin, Total (05/22/2015) + +-------+ + + + | Component | Value | Ref Range | Performed | Pathologist | | | | | At | Signature | + +-------+ + + + | Bilirubin, | 0.4 | 0 - 1.2 | EXTERNAL | [...] + +---------+ + + External Lab: Albumin (05/22/2015) + +-------+ + + + | Component [...] +---------+ + + External Lab: Protein, Total (05/22/2015) + +-------+ + + + | Component | Value | Ref Range | Performed | Pathologist | | | | | At | Signature | + +-------+ + + + | Protein, | 7.5 | 6 - 8 | EXTERNAL | [...] + +---------+ + + External Lab: Calcium (05/22/2015) + +-------+ + + + | Component [...] +---------+ + + External Lab: Carbon Dioxide (05/22/2015) + +-------+ + + + | Component [...] + +---------+ + + External Lab: Chloride (05/22/2015) + +-------+ + + + | Component | Value | Ref Range | Performed | Pathologist | | | | | At | Signature | + +-------+ + + + | Chloride, | 103 | 95 - 112 | EXTERNAL | [...] + +---------+ + + External Lab: Potassium (05/22/2015) + +-------+ + + + | Component [...] + +---------+ + + External Lab: Sodium (05/22/2015) + +-------+ + + + | Component [...] + + External Lab: Vitamin D, 25-Hydroxy (05/22/2015) + +--------+ + + + | Component | Value | Ref Range | Performed | Pathologist | | | | | At | Signature | + +--------+ + + + | Vitamin D, | 23 (A) | 30 - 100 | EXTERNAL | | | 25-Hydroxy, | [...] + +---------+ + + External Lab: CBC (05/22/2015) + + + + + + | Component | Value | Ref Range | Performed | Pathologist | | | | | At | Signature | + + + + + + | WBC, | 8.2 | 4.5 - 11 | EXTERNAL | | | External | | | LAB | | + + + + + + | HGB, | 12.5 (A) | 13.5 - 18 | EXTERNAL | | | External | | | LAB | | + + + + + + | HCT, | 36.0 (A) | 41 - 50 | EXTERNAL | | | External | | | LAB | | + + + + + + | PLT, | 288 | 140 - 440 | EXTERNAL | | | External | | | LAB | | + + + + + + | RBC, | 4.05 (A) | 4.3 - 5.7 | EXTERNAL | | | External | | | LAB | | + + + + + + | MCV, | 89 | 81 - 99 | EXTERNAL | | | External | | | LAB | | + + + + + + | RDW, | 13.7 | 10.5 - 15 | EXTERNAL | [...] + +---------+ + + External Lab: eGFR (05/22/2015) + +-------+ + + + | Component [...] + +---------+ + + External Lab: Creatinine (05/22/2015) + + + + + + | Component | Value | Ref Range | Performed | Pathologist | | | | | At | Signature | + + + + + + | Creatinine, | 3.52 (A) | 0.6 - 1.35 | EXTERNAL [...]
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
--- OUTSIDE RECORDS SUMMARY | ~2019-12-22 | XMS | Encounter Summary ---
Demographics + + + | Address | [address] [place] [address] | | | [place] [address] | + + + | Home Phone | | + + + | Preferred Language | Unknown | + + + | Marital Status | | + + + | Spiritism Affiliation | CHR | + + + | Race | White | + + + | Ethnic Group | Not or | + + + Author + + + | Author | [facility] | + + + | Organization | [facility] | + + + | Address | Unknown | + + + | Phone | Unavailable | + + + Support + + +---------+ + | Name | Relationship | Address | Phone | + + +---------+ + | Misty Oneill | ECON | Unknown | | + + +---------+ + Care Team Providers + +------+ + | Care Coat Repair Inspector Name | Role | Phone | + [...] | Surgery Services at | K[facility], | | | | | [facility] | [place] [address] | | | | | [address] Mailcode: | [phone] | | | | | [facility] | | | | | | and Healing, | | | | | | [address] | | | | | | [place], [place] | | | | | | [address] | | | | | | [phone] | | | +--------+ + + + [...]
--- OUTSIDE RECORDS SUMMARY | ~2019-12-22 | XMS | Encounter Summary ---
Demographics + + + | Address | [address] | | | [place] [address] | + + + | Home Phone | | + + + | Preferred Language | Unknown | + + + | Marital Status | | + + + | Jainism Affiliation | 1041 | + + + | Race | Unknown | + + + | Ethnic Group | Unknown | + + + Author + + + | Author | [facility] | | | and [place] | + + + | Organization | [facility] | | | and [place] | + + + | Address | Unknown | + + + | Phone | Unavailable | + + + Support + + + + + | Name | Relationship | Address | Phone | + + + + + | Ryan Oneill | ECON | [place], [place] | | | | | [address] | | + + + + + | Misty Boateng | ECON | [address] | | | | | [place] | | | | | [address] | | + + + + + Care Team Providers + +------+ + | Care Director Career Name | Role | Phone | + [...] Description | +--------+--------+ + + + | 07/10/ | Refill | [facility] [place] | Christine Martinez W, | Medication Refill | | 2014 | | NEPHROLOGY [address] | MD [address] | | | | | [address] | [address] [facility] | | | | | [place], [place] | [place] [address] | | | | | [address] | [phone] | | | | | [phone] | | | +--------+--------+ + + + [...] | | | | | [place] [address] | | | | | | [phone] | | | | | | | | +--------+---------+ + + + documented as of this encounter Visit Diagnoses Not on filedocumented in this encounter"
--- OUTSIDE RECORDS SUMMARY | ~2019-12-22 | XMS | Encounter Summary ---
Demographics + + + | Address | [address] | | | [place] [address] | + + + | Home Phone | | + + + | Preferred Language | Unknown | + + + | Marital Status | | + + + | Caodaism Affiliation | 1041 | + + + | Race | Unknown | + + + | Ethnic Group | Unknown | + + + Author + + + | Author | [facility] | | | and [place] | + + + | Organization | [facility] | | | and [place] | + + + | Address | Unknown | + + + | Phone | Unavailable | + + + Support + + + + + | Name | Relationship | Address | Phone | + + + + + | Ryan Oneill | ECON | [place], [place] | | | | | [address] | | + + + + + | Misty Boateng | ECON | [address] | | | | | [place], [place] | | | | | [address] | | + + + + + Care Team Providers + +------+ + | Care Shoe Turner Name | Role | Phone | + +------+ + PCP | Unavailable | + +------+ + Encounter Details +--------+ + + + + | Date | Type | Department | Care Team | Description | +--------+ + + + + | 11/11/ | Orders Only | [facility] [place] | Christine Martinez W, | CKD (chronic kidney | | 2017 | | NEPHROLOGY [address] | [address] | disease) stage 4, | | | | [address] | [address] [place] | GFR 15-29 ml/min | | | | [place], [place] | [place] [address] | ([facility]) (Primary Dx) | | | | [address] | [phone] | | | | | [phone] | | | +--------+ + + + [...] encounter Progress Notes Jennifer Noble RN - 11/11/2016 8:20 AM PDTLabs for nephrology appt on 11/17/16 sent to [facility]. documented in this en counter Plan of Treatment +--------+---------+ + + + | Date | Type | Specialty | Care Team | Description | +--------+---------+ + + + | 03/20/ | Office | Nephrology | Christine Martinez, | | | 2019 | Visit | | MD Monica Manzanares | | | | | | [address] [place] | | | | | | [place] [address] | | | | | | [phone] | | | | | | | | +--------+---------+ + + + documented as of this encounter Visit Diagnoses + + | Diagnosis | + + | CKD (chronic kidney disease) stage 4, GFR 15-29 ml/min ([facility]) - Primary Chronic kidney | | disease, Stage IV (severe) | + + documented in this encounter"
--- OUTSIDE RECORDS SUMMARY | ~2019-12-22 | XMS | Encounter Summary ---
Demographics + + + | Address | [address] [place] [address] | | | [place] [address] | + + + | Home Phone | | + + + | Preferred Language | Unknown | + + + | Marital Status | | + + + | Uatsdin Affiliation | CHR | + + + [...] Team Providers + +------+ + | Care Cloth Booker Name | Role | Phone | + [...] | | | 2020 | Event | [facility] | [address] | | | | | and Healing Surgery | K[address] [place], | | | | | [place] [facility] | [place] [address] | | | | | Desk Located on the | [phone] | | | | | 4th floor [address] | | | | | | [address] [place], | Nyla Scruggs CRNA | | | | | [place] [address] | [address] | | | | | | [address] | | | | | | [place], [place] | | | | | | [address] | | | | | | [phone] | | | | | | | [...] + | Incisi | 12/05/19; 910; Quynh Donlad MD; Left; | 12/05/19 09 by | | | on | Upper; neck | Summer Staton RN | | +--------+ + + + | Drain | 12/05/19; 1044; Rkaesh; Left; | 12/05/19 1044 by | | [...]
--- OUTSIDE RECORDS SUMMARY | ~2019-12-22 | XMS | Encounter Summary ---
Demographics + + + | Address | [address] | | | [place] [address] | + + + | Home Phone [...] [place], [place] | | | | | [address] | | + + + + + | Misty Boateng | ECON | [address] | | | | | [place], [place] | | | | | [address] | | + + + + + Care Team Providers + +------+ + | Care Playroom Attendant Name | Role | Phone | + [...] | 04/02/ | Refill | [facility] [place] | Christine Martinez W, | Medication Refill | | 2015 | | NEPHROLOGY [address] | MD [address] | | | | | [address] | [address] [place] | | | | | [place], [place] | [place] [address] | | | | | [address] | [phone] | | | | | [phone] | | | +--------+--------+ + + + [...] | | | | | [place] [address] | | | | | | [phone] | | | | | | | | +--------+---------+ + + + documented as of this encounter Visit Diagnoses Not on filedocumented in this encounter"
--- OUTSIDE RECORDS SUMMARY | ~2019-12-22 | XMS | Encounter Summary ---
Demographics + + + | Address | [address] [place] [address] | | | [place] [address] | + + + | Home Phone [...] Author | [facility] | + + + | Organization | [facility] | + + + | Address | Unknown | + + + | Phone | Unavailable | + + + Support + + +---------+ + | Name | Relationship | Address | Phone | + + +---------+ + | Misty Oneill | ECON | Unknown | | + + +---------+ + Care Team Providers + +------+ + | Care Solar Panel Installation Supervisor Name | Role | Phone | [...] | +--------+ + + + + | 05/20/ | Documentati | Clinical | Russ Garcia | Financial Review | | 2016 | on | Transplant Services | [address] | | | | | [address] | [place], | | | | | [place], | [place] [address] | | | | | [place] [address] | | | | | | [phone] | | | +--------+ + + + [...]
--- OUTSIDE RECORDS SUMMARY | ~2019-12-22 | XMS | Encounter Summary ---
Demographics + + + | Address | [address] | | | [place] [address] | + + + | Home Phone | | + + + | Preferred Language | Unknown | + + + | Marital Status | | + + + | Mandaen Affiliation | 1041 | + + + | Race | Unknown | + + + | Ethnic Group | Unknown | + + + Author + + + | Author | [facility] | | | and [place] | + + + | Organization | [facility] | | | and [place] | + + + | Address | Unknown | + + + | Phone | Unavailable | + + + Support + + + + + | Name | Relationship | Address | Phone | + + + + + | Ryan Oneill | ECON | [place], [place] | | | | | [address] | | + + + + + | Misty Boateng | ECON | [address] | | | | | [place], [place] | | | | | [address] | | + + + + + Care Team Providers + +------+ + | Care Form Builder Name | Role | Phone | + +------+ + PCP | Unavailable | + +------+ + Encounter Details +--------+ + + + + | Date | Type | Department | Care Team | Description | +--------+ + + + + | 05/18/ | Hospital | [facility] | Milton Joya, | | | 2001 | Encounter | CONVERSION [address] | MD [address] | | | | | [address] | [address] [facility], | | | | | [place], [place] | [place] [address] | | | | | [address] | [phone] | | | | | [phone] | | | +--------+ + + + [...] | | | | | [place] [address] | | | | | | [phone] | | | | | | | | +--------+---------+ + + + documented as of this encounter Visit Diagnoses Not on filedocumented in this encounter"
--- OUTSIDE RECORDS SUMMARY | ~2019-12-22 | XMS | Encounter Summary ---
Demographics + + + | Address | [address] | | | [place] [address] | + + + | Home Phone | | + + + | Preferred Language | Unknown | + + + | Marital Status | | + + + | Restoration Affiliation | 1041 | + + + [...] [place], [place] | | | | | [address] | | + + + + + | Misty Boateng | ECON | [address] | | | | | [place], [place] | | | | | [address] | | + + + + + Care Team Providers + +------+ + | Care Fur Tinter Name | Role | Phone | + +------+ + PCP | Unavailable | + +------+ + Encounter Details +--------+ + + + + | Date | Type | Department | Care Team | Description | +--------+ + + + + | 07/31/ | Documentati | [facility] [place] | Christine Martinez W, | | | 2016 | on | NEPHROLOGY [address] | [address] | | | | | [address] | [address] [place] | | | | | [place], [place] | [place] [address] | | | | | [address] | [phone] | | | | | [phone] | | | +--------+ + + + [...] this encounter Progress Notes Mandy Negrete - 07/31/2015 2:08 PM PSTManually faxed labs from 06-21-15 and 06-06-15 wit h DARRICK request to [facility] Transplant Services, attn: Thi Lopez RN (fx: [phone]) on 07/04. documented in this encounter Plan of Treatment +--------+---------+ + + + | Date | Type | Specialty | Care Team | Description | +--------+---------+ + + + | 03/20/ | Office | Nephrology | Christine Martinez, | | | 2020 | Visit | | MD [address] [place] | | | | | | [address] [place] | | | | | | [place] [address] | | | | | | [phone] | | | | | | | | +--------+---------+ + + + documented as of this encounter Visit Diagnoses Not on filedocumented in this encounter"
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
--- OUTSIDE RECORDS SUMMARY | ~2019-12-22 | XMS | Encounter Summary ---
Demographics + + + | Address | [address] | | | [place] [address] | + + + | Home Phone [...] [place], [place] | | | | | [address] | | + + + + + | Misty Boateng | ECON | [address] | | | | | [place], [place] | | | | | [address] | | + + + + + Care Team Providers + +------+ + | Care Air Support Control Officer Name | Role | Phone | + +------+ + PCP | Unavailable | + +------+ + Encounter Details +--------+ + + + + | Date | Type | Department | Care Team | Description | +--------+ + + + + | 04/29/ | Abstract | [facility] [place] | Peace Drake | | | 2015 | | NEPHROLOGY [address] | M, DO [address] | | | | | [address] | [place], [address] | | | | | [place], [place] | [place], [place] | | | | | [address] | [address] | | | | | [phone] | | | +--------+ + + + [...] this encounter Progress Notes Mandy Negrete - 04/29/2016 11:17 AM PDTOutside records: Received progress note from Nicole Jhaveri MD. Sent to scan. documented in this encounter [...] | | | | | [place] [address] | | | | | | [phone] | | | | | | | | +--------+---------+ + + + documented as of this encounter Visit Diagnoses Not on filedocumented in this encounter"
--- OUTSIDE RECORDS SUMMARY | ~2019-12-22 | XMS | Encounter Summary ---
Demographics + + + | Address | [address] [place] [address] | | | [place] [address] | + + + | Home Phone | | + + + | Preferred Language | Unknown | + + + | Marital Status | | + + + | Hindu Affiliation | CHR | + + + | Race | White | + + + | Ethnic Group | Not or | + + + Author + + + | Author | [facility] | + + + | Organization | [facility] | + + + | Address | Unknown | + + + | Phone | Unavailable | + + + Support + + +---------+ + | Name | Relationship | Address | Phone | + + +---------+ + | Misty Oneill | ECON | Unknown | | + + +---------+ + Care Team Providers + +------+ + | Care Body Trimmer Name | Role | Phone | + +------+ + | Jt Perkins MD | PCP | | + +------+ + Reason for Visit + + + | Reason | Comments | + + + | KP Waitlist | nephrology clinic and labs | + + + Encounter Details +--------+ + + + + | Date | Type | Department | Care Team | Description | +--------+ + + + + | 03/24/ | Documentati | Clinical | Thi Aden, | Waitlist | | 2019 | on | Transplant Services | RN [address] | (nephrology clinic | | | | [address] | [address] | and labs) | | | | [address] [place], | [place], [place] | | | | | [place] [address] | [address] | | | | | [phone] | | | +--------+ + + + [...]
--- OUTSIDE RECORDS SUMMARY | ~2019-12-22 | XMS | Encounter Summary ---
Demographics + + + | Address | [address] | | | [place] [address] | + + + | Home Phone | | + + + | Preferred Language | Unknown | + + + | Marital Status | | + + + | Alevism Affiliation | 1041 | + + + [...] [place], [place] | | | | | [address] | | + + + + + | Misty Boateng | ECON | [address] | | | | | [place], [place] | | | | | [address] | | + + + + + Care Team Providers + +------+ + | Care Disbursement Clerk Name | Role | Phone | + +------+ + PCP | Unavailable | + +------+ + Encounter Details +--------+ + + + + | Date | Type | Department | Care Team | Description | +--------+ + + + + | 09/24/ | Abstract | [facility] [place] | Christine Martinez W, | | | 2015 | | NEPHROLOGY [address] | [address] | | | | | [address] | [address] [place] | | | | | [place], [place] | [place] [address] | | | | | [address] | [phone] | | | | | [phone] | | | +--------+ + + + [...] | | | | | [place] [address] | | | | | | [phone] | | | | | | | | +--------+---------+ + + + documented as of this encounter Visit Diagnoses Not on filedocumented in this encounter"
--- OUTSIDE RECORDS SUMMARY | ~2019-12-22 | XMS | Encounter Summary ---
Demographics + + + | Address | [address] [place] [address] | | | [place] [address] | + + + | Home Phone [...] + | Author | [facility] | + + + | Organization | [facility] | + + + | Address | Unknown | + + + | Phone | Unavailable | + + + Support + + +---------+ + | Name | Relationship | Address | Phone | + + +---------+ + | Misty Oneill | ECON | Unknown | | + + +---------+ + Care Team Providers + +------+ + | Care Sizer Hand Name | Role | Phone | [...] PPV | | | | | | [address] | | | | | | [facility] | | | | | | [place], [address] [place] [address] | | | | | | [place], [place] | | | | | | [address] | | | | | | [phone] | | | +--------+ + + + [...] SERUM | 57 | ug/dL | [facility] | | | | [...] + | [facility] | | | [phone] | | [facility] | | | | [...] + | [facility] | | | [phone] | | [facility] | | | | [...] + | [facility] | | | [phone] | | [facility] | | | | [...] PLASMA | 15 | mg/dL | [facility] | | | (LAB) | | | [...] + | [facility] | | | [phone] | | [facility] | | | | + +---------+ + + | [facility] | | [place], [place] | | | HOSPITAL | | | | + +---------+ + + documented in this encounter Visit Diagnoses Not on filedocumented in this encounter"
--- OUTSIDE RECORDS SUMMARY | ~2019-12-22 | XMS | Encounter Summary ---
Demographics + + + | Address | [address] | | | [place] [address] | + + + | Home Phone | | + + + | Preferred Language | Unknown | + + + | Marital Status | | + + + | Yarsanism Affiliation | 1041 | + + + [...] [place], [place] | | | | | [address] | | + + + + + | Misty Boateng | ECON | [address] | | | | | [place] | | | | | [address] | | + + + + + Care Team Providers + +------+ + | Care Cd Manufacturing Supervisor Name | Role | Phone | + +------+ + | Jt Perkins MD | PCP | | + +------+ + Encounter Details +--------+ + + + + | Date | Type | Department | Care Team | Description | +--------+ + + + + | 09/28/ | Orders Only | [facility] | Carlito Gaona MD | | | 2014 | | NEPHROLOGY [place] | [address] | | | | [address] | [address] [place], [place] | | | | | [address] [facility] [place] | [address] | | | | | [address] | | | | | | [phone] | | | +--------+ + + + [...] | | | | | | [place] [address] | | | | | | [phone] | | | | | | | [...] | | | LAB | | | [facility] | | | | | + + [...]
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
--- OUTSIDE RECORDS SUMMARY | ~2019-12-22 | XMS | Encounter Summary ---
Demographics + + + | Address | [address] | | | [place] [address] | + + + | Home Phone | | + + + | Preferred Language | Unknown | + + + | Marital Status | | + + + | Mandaen Affiliation | 1041 | + + + | Race | Unknown | + + + | Ethnic Group | Unknown | + + + Author + + + | Author | [facility] | | | and [place] | + + + | Organization | [facility] | | | and [place] | + + + | Address | Unknown | + + + | Phone | Unavailable | + + + Support + + + + + | Name | Relationship | Address | Phone | + + + + + | Ryan Oneill | ECON | [place], [place] | | | | | [address] | | + + + + + | Misty Boateng | ECON | [address] | | | | | [place], [place] | | | | | [address] | | + + + + + Care Team Providers + +------+ + | Care Paper Feeder Name | Role | Phone | + +------+ + PCP | Unavailable | + +------+ + Encounter Details +--------+ + + + + | Date | Type | Department | Care Team | Description | +--------+ + + + + | 09/18/ | Abstract | [facility] | [facility] | | | 2016 | | NEPHROLOGY [address] | M, DO [address] | | | | | [address] | [address] | | | | | [place], [place] | [place], [place] | | | | | [address] | [address] | | | | | [phone] | | | +--------+ + + + [...] | | | | | [place] [address] | | | | | | [phone] | | | | | | | | +--------+---------+ + + + documented as of this encounter Procedures + +--------+ + + + | Procedure Name | Priori | Date/Time | Associated Diagnosis | Comments | | | ty | | | | + +--------+ + + + | EXTERNAL LAB: ANIVAL | Routin | 09/17/2016 | | Results for this | | | e | | | procedure are in the | | | | | | results section. | + +--------+ + + + | EXTERNAL LAB: | Routin | 09/17/2016 | | Results for this | | GLUCOSE | e | | | procedure are in the | | | | | | results section. | + +--------+ + + + | EXTERNAL LAB: ROSHNI | Routin | 09/17/2016 | | Results for this | | | e | | | procedure are in the | | | | | | results section. | + +--------+ + + + | EXTERNAL LAB: AST | Routin | 09/17/2016 | | Results for this | | | e | | | procedure are in the | | | | | | results section. | + +--------+ + + + | EXTERNAL LAB: | Routin | 09/17/2016 | | Results for this | | ALKALINE PHOSPHATASE | e | | | procedure are in the | | | | | | results section. | + +--------+ + + + | EXTERNAL LAB: | Routin | 09/17/2016 | | Results for this | | BILIRUBIN, TOTAL | e | | | procedure are in the | | | | | | results section. | + +--------+ + + + | EXTERNAL LAB: | Routin | 09/17/2016 | | Results for this | | ALBUMIN | e | | | procedure are in the | | | | | | results section. | + +--------+ + + + | EXTERNAL LAB: | Routin | 09/17/2016 | | Results for this | | PROTEIN, TOTAL | e | | | procedure are in the | | | | | | results section. | + +--------+ + + + | EXTERNAL LAB: | Routin | 09/17/2016 | | Results for this | | PHOSPHORUS | e | | | procedure are in the | | | | | | results section. | + +--------+ + + + | EXTERNAL LAB: | Routin | 09/17/2016 | | Results for this | | CALCIUM | e | | | procedure are in the | | | | | | results section. | + +--------+ + + + | EXTERNAL LAB: CARBON | Routin | 09/17/2016 | | Results for this | | DIOXIDE | e | | | procedure are in the | | | | | | results section. | + +--------+ + + + | EXTERNAL LAB: | Routin | 09/17/2016 | | Results for this | | CHLORIDE | e | | | procedure are in the | | | | | | results section. | + +--------+ + + + | EXTERNAL LAB: | Routin | 09/17/2016 | | Results for this | | POTASSIUM | e | | | procedure are in the | | | | | | results section. | + +--------+ + + + | EXTERNAL LAB: SODIUM | Routin | 09/17/2016 | | Results for this | | | e | | | procedure are in the | | | | | | results section. | + +--------+ + + + | EXTERNAL LAB: KAYLA | Routin | 09/17/2016 | | Results for this | | INTACT | e | | | procedure are in the | | | | | | results section. | + +--------+ + + + | EXTERNAL LAB: CBC | Routin | 09/17/2016 | | Results for this | | | e | | | procedure are in the | | | | | | results section. | + +--------+ + + + | EXTERNAL LAB: GAURAV | Routin | 09/17/2016 | | Results for this | | | e | | | procedure are in the | | | | | | results section. | + +--------+ + + + | EXTERNAL LAB: | Routin | 09/17/2016 | | Results for this | | CREATININE | e | | | procedure are in the | | | | | | results section. | + +--------+ + + + | CREATININE | Routin | 09/17/2016 | | Results for this | | CLEARANCE, RESULT | e | | | procedure are in the | | | | | | results section. | + +--------+ + + + documented in this encounter Results External Lab: PTH, Intact (09/17/2016) + + + + + + | Component | Value | Ref Range | Performed | Pathologist | | | | | At | Signature | + + + + + + | PTH Intact, | 112.3 (A) | 15 - 65 | | | | External | | | | | + + + + + + + + | Specimen | + + | | + + Creatinine Clearance, Result (09/17/2016) + + + + + + | Component | Value | Ref Range | Performed | Pathologist | | | | | At | Signature | + + + + + + | CREATININE | 46.0 (A) | 97.0 - 137.0 | | | | CLEARANCE | | mL/min | | | + + + + + + | 24H Urine | 2,200 | mL | | | | Volume | | | | | + + + + + + | Urea | 447 | mg/dL | | | | Nitrogen, | | | | | | Urine | | | | | + + + + + + | Urea | 16 (A) | 41 - 68 mL/dL | | | | Nitrogen | | | | | | Clearance | | | | | + + + + + + + + | Specimen | + + | Urine specimen | | (specimen) | + + External Lab: ANIVAL (09/17/2016) + +--------+ + + + | Component [...] + +---------+ + + External Lab: Glucose (09/17/2016) + +-------+ + + + | Component | Value | Ref Range | Performed | Pathologist | | | | | At | Signature | + +-------+ + + + | Glucose, | 97 | 70 - 100 | EXTERNAL | | | External | | | LAB | | + +-------+ + + + + +---------+ + + | Performing | Address | City/State/Zipcode | Phone Number | | Organization | | | | + +---------+ + + | EXTERNAL LAB | | | | + +---------+ + + External Lab: ALT (09/17/2016) + +-------+ + + + | Component | Value | Ref Range | Performed | Pathologist | | | | | At | Signature | + +-------+ + + + | ALT, | 10 | 7 - 52 | EXTERNAL | | | External | | | LAB | | + +-------+ + + + + +---------+ + + | Performing | Address | City/State/Zipcode | Phone Number | | Organization | | | | + +---------+ + + | EXTERNAL LAB | | | | + +---------+ + + External Lab: OBDULIO (09/17/2016) + +-------+ + + + | Component | Value | Ref Range | Performed | Pathologist | | | | | At | Signature | + +-------+ + + + | AST, | 13 | 13 - 39 | EXTERNAL | | | External | | | LAB | | + +-------+ + + + + +---------+ + + | Performing | Address | City/State/Zipcode | Phone Number | | Organization | | | | + +---------+ + + | EXTERNAL LAB | | | | + +---------+ + + External Lab: Alkaline Phosphatase (09/17/2016) + +-------+ + + + | Component [...] +---------+ + + External Lab: Bilirubin, Total (09/17/2016) + +-------+ + + + | Component | Value | Ref Range | Performed | Pathologist | | | | | At | Signature | + +-------+ + + + | Bilirubin, | 0.7 | 0 - 1.2 | EXTERNAL | [...] + +---------+ + + External Lab: Albumin (09/17/2016) + +-------+ + + + | Component [...] +---------+ + + External Lab: Protein, Total (09/17/2016) + +-------+ + + + | Component | Value | Ref Range | Performed | Pathologist | | | | | At | Signature | + +-------+ + + + | Protein, | 6.8 | 6 - 8 | EXTERNAL | [...] + +---------+ + + External Lab: Phosphorus (09/17/2016) + +-------+ + + + | Component | Value | Ref Range | Performed | Pathologist | | | | | At | Signature | + +-------+ + + + | Phosphorus, | 3.5 | 2.5 - 5 | EXTERNAL | | | External | | | LAB | | + +-------+ + + + + +---------+ + + | Performing | Address | City/State/Zipcode | Phone Number | | Organization | | | | + +---------+ + + | EXTERNAL LAB | | | | + +---------+ + + External Lab: Calcium (09/17/2016) + +-------+ + + + | Component [...] +---------+ + + External Lab: Carbon Dioxide (09/17/2016) + +-------+ + + + | Component | Value | Ref Range | Performed | Pathologist | | | | | At | Signature | + +-------+ + + + | Carbon | 23 | 19 - 31 | EXTERNAL | [...] + +---------+ + + External Lab: Chloride (09/17/2016) + +-------+ + + + | Component | Value | Ref Range | Performed | Pathologist | | | | | At | Signature | + +-------+ + + + | Chloride, | 107 | 100 - 110 | EXTERNAL | | | External | | | LAB | | + +-------+ + + + + +---------+ + + | Performing | Address | City/State/Zipcode | Phone Number | | Organization | | | | + +---------+ + + | EXTERNAL LAB | | | | + +---------+ + + External Lab: Potassium (09/17/2016) + +-------+ + + + | Component [...] + +---------+ + + External Lab: Sodium (09/17/2016) + +-------+ + + + | Component | Value | Ref Range | Performed | Pathologist | | | | | At | Signature | + +-------+ + + + | Sodium, | 143 | 135 - 145 | EXTERNAL | | | External | | | LAB | | + +-------+ + + + + +---------+ + + | Performing | Address | City/State/Zipcode | Phone Number | | Organization | | | | + +---------+ + + | EXTERNAL LAB | | | | + +---------+ + + External Lab: CBC (09/17/2016) + +-------+ + + + | Component | Value | Ref Range | Performed | Pathologist | | | | | At | Signature | + +-------+ + + + | WBC, | 4.5 | 4.5 - 11 | EXTERNAL | | | External | | | LAB | | + +-------+ + + + | HGB, | 13 | 12 - 16 | EXTERNAL | | | External | | | LAB | | + +-------+ + + + | HCT, | 38.7 | 35 - 45 | EXTERNAL | | | External | | | LAB | | + +-------+ + + + | PLT, | 170 | 140 - 440 | EXTERNAL | | | External | | | LAB | | + +-------+ + + + | RBC, | 4.04 | 4 - 6 | EXTERNAL | | | External | | | LAB | | + +-------+ + + + | MCV, | 96 | 81 - 99 | EXTERNAL | | | External | | | LAB | | + +-------+ + + + | RDW, | 14.5 | 10.5 - 15 | EXTERNAL | | | External | | | LAB | | + +-------+ + + + + +---------+ + + | Performing | Address | City/State/Zipcode | Phone Number | | Organization | | | | + +---------+ + + | EXTERNAL LAB | | | | + +---------+ + + External Lab: eGFR (09/17/2016) + +--------+ + + + | Component | Value | Ref Range | Performed | Pathologist | | | | | At | Signature | + +--------+ + + + | eGFR, | 22 (A) | 60 | EXTERNAL | | [...] + +---------+ + + External Lab: Creatinine (09/17/2016) + + + + + + | Component | Value | Ref Range | Performed | Pathologist | | | | | At | Signature | + + + + + + | Creatinine, | 3.07 (A) | 0.6 - 1.3 | EXTERNAL [...]
--- OUTSIDE RECORDS SUMMARY | ~2019-12-22 | XMS | Encounter Summary ---
Demographics + + + | Address | [address] | | | [place] [address] | + + + | Home Phone | | + + + | Preferred Language | Unknown | + + + | Marital Status | | + + + | Samaritan Affiliation | 1041 | + + + | Race | Unknown | + + + | Ethnic Group | Unknown | + + + Author + + + | Author | [facility] | | | and [place] | + + + | Organization | [facility] | | | and [place] | + + + | Address | Unknown | + + + | Phone | Unavailable | + + + Support + + + + + | Name | Relationship | Address | Phone | + + + + + | Ryan Oneill | ECON | [place], [place] | | | | | [address] | | + + + + + | Misty Boateng | ECON | [address] | | | | | [place], [place] | | | | | [address] | | + + + + + Care Team Providers + +------+ + | Care Neon Pumper Name | Role | Phone | + [...] | NEPHROLOGY [address] | [address] | | | | | [address] | [address] [place] | | | | | [place], [place] | [place] [address] | | | | | [address] | [phone] | | | | | [phone] | | | +--------+ + + + [...] | | | | | [place] [address] | | | | | | [phone] | | | | | | | | +--------+---------+ + + + documented as of this encounter Visit Diagnoses Not on filedocumented in this encounter"
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
--- OUTSIDE RECORDS SUMMARY | ~2019-12-22 | XMS | Encounter Summary ---
Demographics + + + | Address | [address] | | | [place] [address] | + + + | Home Phone | | + + + | Preferred Language | Unknown | + + + | Marital Status | | + + + | Muslim Affiliation | 1041 | + + + [...] [place], [place] | | | | | [address] | | + + + + + | Misty Boateng | ECON | [address] | | | | | [place] | | | | | [address] | | + + + + + Care Team Providers + +------+ + | Care Sql Analyst Name | Role | Phone | [...] | | | nephritis | [address] | | | | | Procedures | [place] | [address] | | | | | [place] OFFICE | [address] | [place] | | | | | OUTPATIENT | [place], | [address] Phone: | | | | | VISIT 25 | [place] | [phone] | | | | | MINUTES | [address] | Fax: | | | | | | Phone: | [phone] | | | | | | [phone] | | | | | | | Fax: | | | | | | | [phone] | | +--------+--------+ + + + + Encounter Details +--------+---------+ + + + | Date | Type | Department | Care Team | Description | +--------+---------+ + + + | 07/10/ | Office | [facility] | Christine Martinez, | CKD (chronic kidney | | 2015 | Visit | NEPHROLOGY [address] | disease) stage 4, | | | | [address] | [address] [place] | GFR 15-29 ml/min | | | | [place], [place] | [place] [id number] | (HCC) (Primary Dx); | | | | [address] | [phone] | Interstitial | | | | [phone] | | nephritis chronic; | | | [...] check labs in 2 weeks @ [facility]. Return in 4 weeks. documented in this [...] kidney disease) stage 4, GFR 15-29 ml/min ([facility]) N18.4 585.4 Due to chronic interstitial disease. No uremic symptoms. Pt has been referred to [facility] transplant. 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
--- OUTSIDE RECORDS SUMMARY | ~2019-12-22 | XMS | Encounter Summary ---
Demographics + + + | Address | [address] [place] [address] | | | [place] [address] | + + + | Home Phone | | + + + | Preferred Language | Unknown | + + + | Marital Status | | + + + | Jain Affiliation | CHR | + + + [...] Team Providers + +------+ + | Care Clothing Sorter Name | Role | Phone | + [...] | | | | | kidney | [place] | [address] [facility] | | | | | disease, | Ciara Urbina | Davino Carball[address] | | | | | stage 4 | Nephrology | [address] [place], | | | | | (severe) | [address] | [place] | | | | | Illness, | [address] | [address] | | | | | unspecified | [address] | Phone: | | | | | | Ciara Urbina, | [phone] | | | | | | [place] [address] | Fax: | | | | | | Phone: | [phone] | | | | | | [phone] | | | | | | | Fax: | | | | | | | [phone] | | +--------+--------+ + + + + Encounter Details +--------+---------+ + + + | Date | Type | Department | Care Team | Description | +--------+---------+ + + + | 09/05/ | Office | Kidney Transplant | Jah Reyna MD | Chronic kidney | | 2016 | Visit | at [facility] [address] | [address] | disease, stage IV | | | | [address] | [place], [place] | (severe) (HCC) | | | | Physician's | [address] | (Primary Dx); Anemia | | | | Pavilion, 3rd Floor | [phone] | of chronic renal | | | | [place], [place] | | failure, stage 4 | | | | [address] | | (severe) (HCC); | | | | [phone] | | Benign hypertension; | | | | | | Venous malformation | +--------+---------+ + + + Social History [...] of this encounter Patient Instructions Patient Instructions Jah Reyna MD - 09/05/2015 2:13 PM PSTMr. Oneill, 1. I didn't find anything that would disqualify you from receiving a kidney transplant. 2. We may recommend brain imaging to be sure that the venous abnormality seen on a previous CT scan. 3. There will be a conference to review all the information and make final recommendations to make this safe for you. 4. We can get an infectious sales operations consultant to help make a decision about your work conditions a fter transplantation. Jah Reyna MD Professor of Urology director of retail, Division of Abdominal Organ Transplantation documented in this encounter Progress Notes Jah Reyna MD - 09/05/2015 1:58 PM PSTFormatting of this note might be different from th e original. RENAL TRANSPLANT CONSULTATION This 44 y.o. male is referred by Dr. Christine Martinez for a renal transplant candidate evalua tion. The patient is seen in the presence of the patient's , Brittney. This patient's problems include the following: Chronic kidney disease, stage IV (severe) ([facility])[585.4] 1. Progressive renal dysfxn 2. Abnormal R renal CT 3. Renal Bx: 11/25: Interstitial nephritis. ([facility]) 4. Corticosteroids instituted: 11/25 5. Negative immunologic w/u: ADAM, anti-DNA 6. eGFR 18: 08/2015 7. 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 . 2 healthy children. 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 Potential living donor? No. Family History Problem Relation Cancer Maternal Grandfather colon, lung, melanoma Heart Disease Paternal Grandfather Cancer Maternal Grandmother Breast Hypertension Mother Hypertension Father ROS: I reviewed the ROS as documented in the Navigator History section; see Problem List fo r significant responses. Sensitizing events: none Viral infections: positive for Chickenpox; negative for HSV and shingles; Appears to be well, oriented to time, place and person, and competent to make medical decis ions for self. Mood and affect are appropriate. Vitals 09/05/2015 Systolic 140 Diastolic 88 Pulse 70 Temperature 97.7 Respirations Weight 90.719 kg (200 lb) Height (in) 72.000 Height (cm) 182.9 cm BMI SpO2 99 BSA 2.15 m2 Pain Scale 05 - Moderate to Severe Pain Location Right arm Dialysis access: None. HEENT: no scleral icterus, cranial nerves 2-12 grossly intact, no cervical masses, no carot id bruits. Chest: no scars, dialysis catheter absent on chest. Lungs: clear to ascultation. Heart: regular rhythm, no murmurs or rubs. Abdomen: lap appendectomy and cholecystectomy scars, no masses, no tenderness, no bruits. External genitalia: circumcised penis, testes descended, no testicular masses, soft hydroce le above left testis, no inguinal hernia. Extremities: femoral pulses present , onychomycosis absent, foot or toe ulcers absent, peda l pulses present , no pedal edema. Neurological: no lateralizing findings. Risk factors (preliminary recommendations): 1. Humira treatment (determine its influence on immunosuppression for kidney transplantatio n). 2. Uncertain diagnosis of primary renal disease (unable to predict probability of recurrenc e in a kidney transplant). 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 4. Depression/anger (beware if high dose glucocorticoid therapy becomes necessary) 5. Brain venous malformation on CT (neurology opinion about further assessment) The patient is probably an acceptable candidate for renal transplantation. The [place] Co- morbidity Score would be 1 without renal failure. The Karnofsky score is 100%. Plan: The potential risks and benefits of renal transplantation were reviewed. We will gat her the remainder of the information and present the case at the Transplant Selection Confer ence. 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
--- OUTSIDE RECORDS SUMMARY | ~2019-12-22 | XMS | Encounter Summary ---
Demographics + + + | Address | [address] [place] [address] | | | [place] [address] | + + + | Home Phone | | + + + | Preferred Language | Unknown | + + + | Marital Status | | + + + | Jehovah'S Witness Affiliation | CHR | + + + | Race | White | + + + | Ethnic Group | Not or | + + + Author + + + | Author | [facility] | + + + | Organization | [facility] | + + + | Address | Unknown | + + + | Phone | Unavailable | + + + Support + + +---------+ + | Name | Relationship | Address | Phone | + + +---------+ + | Misty Oneill | ECON | Unknown | | + + +---------+ + Care Team Providers + +------+ + | Care In Flight Technician Name | Role | Phone | + +------+ + | Hai Holman MD | PCP | | + +------+ + Reason for Visit + + + | Reason | Comments | + + + | Tx Recommendation | schedule prescreen | | Tracking | | + + + Encounter Details +--------+ + + + + | Date | Type | Department | Care Team | Description | +--------+ + + + + | 05/26/ | Telephone | Clinical | Thi Aden, | Tx Recommendation | | 2015 | | Transplant Services | RN [address] | Tracking (schedule | | | | [address] | [address]rios | prescreen) | | | | Kait Barrios [place], | [place], [place] | | | | | [place] [address] | [address] | | | | | [phone] | | | +--------+ + + + [...]
--- OUTSIDE RECORDS SUMMARY | ~2019-12-22 | XMS | Encounter Summary ---
Demographics + + + | Address | [address] [place] [address] | | | [place] [address] | + + + | Home Phone [...] Team Providers + +------+ + | Care Calibration Tester Name | Role | Phone | + +------+ + | Jt Perkins MD | PCP | | + +------+ + Reason for Visit + + + | Reason | Comments | + + + | Social Work Waitlist | | | Update | | + + + Encounter Details +--------+ + + + + | Date | Type | Department | Care Team | Description | +--------+ + + + + | 09/28/ | Documentati | Transplant Social | Allabastro, Margaret, | Social Work Waitlist | | 2019 | on | Work [address] | RESIN REMOVER [address] | Update | | | | Michelle Adam | [address] | | | | | [place], Room | [place], [place] | | | | | [address] [place], [place] | [address] | | | | | [address] | [phone] | | | | | [phone] | | | +--------+ + + + [...]
--- OUTSIDE RECORDS SUMMARY | ~2019-12-22 | XMS | Encounter Summary ---
Demographics + + + | Address | [address] [place] [address] | | | [place] [address] | + + + | Home Phone [...] Team Providers + +------+ + | Care Cdc Associate Name | Role | Phone | + [...] | | [address] | [address] Kait Barrios | refresh) | | | | Kait Barrios [place], | [place], [place] | | | | | [place] [address] | [address] | | | | | [phone] | | | +--------+ + + + [...]
--- OUTSIDE RECORDS SUMMARY | ~2019-12-22 | XMS | Encounter Summary ---
Demographics + + + | Address | [address] [place] [address] | | | [place] [address] | + + + | Home Phone [...] Team Providers + +------+ + | Care Flatbed Stitcher Name | Role | Phone | [...] | | | | | kidney | [place] | [address] [facility] | | | | | disease, | Ciara Urbina | [address] Carballo | | | | | stage 4 | Nephrology | [address] [place], | | | | | (severe) | [address] | [place] | | | | | Illness, | [address] | [address] | | | | | unspecified | [address] | Phone: | | | | | | Ciara Urbina, | [phone] | | | | | | [place] [address] | Fax: | | | | | | Phone: | [phone] | | | | | | [phone] | | | | | | | Fax: | | | | | | | [phone] | | +--------+--------+ + + + + Encounter Details +--------+---------+ + + + | Date | Type | Department | Care Team | Description | +--------+---------+ + + + | 09/05/ | Office | Kidney Transplant | Md3, [address]tx [address] | Chronic kidney | | 2016 | Visit | at [facility] [address] | [facility] | disease, stage III | | | | [address] | [address] [place], [place] | (moderate) ([facility]); | | | | Physician's | [address] | Acute interstitial | | | | [address], 3rd floor | | nephritis | | | | [facility] [place] | | | | | | [address] | | | | | | [phone] | | | +--------+---------+ + + + [...] + + + | Blood Pressure | 140/88 | 09/05/2015 1:23 PM | | | | | PST | | + + + + + | Pulse | 70 | 09/05/2015 1:23 PM | | | | | PST | | + + + + + | Temperature | 36.5 C (97.7 F) | 09/05/2015 1:23 PM | | | | | PST | | + + + + + | Respiratory Rate | - | - | | + + + + + | Oxygen Saturation | 99% | 09/05/2015 1:23 PM | | | | | PST | | + + + + + | Inhaled Oxygen | - | - | | | Concentration | | | | + + + + + | Weight | 90.7 kg (200 lb) | 09/05/2015 1:23 PM | | | | | PST | | + + + + + | Height | 182.9 cm (6') | 09/05/2015 1:23 PM | | | | | PST | | + + + + + | Body Mass Index | 27.12 | 09/05/2015 1:23 PM | | | | | PST | | + + + + + documented in this encounter Progress Jazmine Reed MA - 09/13/2015 10:04 AM PSTImmunization only encounter Thanks Jazmine Murrieta CMA documented in this e ncounter Plan of Treatment Not on filedocumented as [...]
--- OUTSIDE RECORDS SUMMARY | ~2019-12-22 | XMS | Encounter Summary ---
Demographics + + + | Address | [address] [place] [address] | | | [place] [address] | + + + | Home Phone | | + + + | Preferred Language | Unknown | + + + | Marital Status | | + + + | Yazidism Affiliation | CHR | + + + | Race | White | + + + | Ethnic Group | Not or | + + + Author + + + | Author | [facility] | + + + | Organization | [facility] | + + + | Address | Unknown | + + + | Phone | Unavailable | + + + Support + + +---------+ + | Name | Relationship | Address | Phone | + + +---------+ + | Misty Oneill | ECON | Unknown | | + + +---------+ + Care Team Providers + +------+ + | Care Patient Support Partner Name | Role | Phone | + +------+ + | Hai Holman MD | PCP | | + +------+ + Reason for Visit + + + | Reason | Comments | + + + | Care Coordination | Care Everywhere refresh | + + + Encounter Details +--------+ + + + + | Date | Type | Department | Care Team | Description | +--------+ + + + + | 02/26/ | Telephone | Clinical | Thi Aden, | Care Coordination | | 2016 | | Transplant Services | RN [address] | (Care Everywhere | | | | [address] | [address] | refresh) | | | | [address] [place], | [place], [place] | | | | | [place] [address] | [address] | | | | | [phone] | | | +--------+ + + + [...]
--- OUTSIDE RECORDS SUMMARY | ~2019-12-22 | XMS | Encounter Summary ---
Demographics + + + | Address | [address] | | | [place] [address] | + + + | Home Phone [...] [place], [place] | | | | | [address] | | + + + + + | Misty Boateng | ECON | [address] | | | | | [place] | | | | | [address] | | + + + + + Care Team Providers + +------+ + | Care Pilot Manager Name | Role | Phone | [...] Description | +--------+--------+ + + + | 06/13/ | Refill | [facility] [place] | Christine Martinez W, | Medication Refill | | 2018 | | NEPHROLOGY [address] | MD [address] | | | | | [address] | [address] [facility] | | | | | [place], [place] | [place] [address] | | | | | [address] | [phone] | | | | | [phone] | | | +--------+--------+ + + + [...] | | | | | [place] [address] | | | | | | [phone] | | | | | | | | +--------+---------+ + + + documented as of this encounter Visit Diagnoses Not on filedocumented in this encounter"
--- OUTSIDE RECORDS SUMMARY | ~2019-12-22 | XMS | Encounter Summary ---
Demographics + + + | Address | [address] [place] [address] | | | [place] [address] | + + + | Home Phone | | + + + | Preferred Language | Unknown | + + + | Marital Status | | + + + | Spiritism Affiliation | CHR | + + + | Race | White | + + + | Ethnic Group | Not or | + + + Author + + + | Author | [facility] | + + + | Organization | [facility] | + + + | Address | Unknown | + + + | Phone | Unavailable | + + + Support + + +---------+ + | Name | Relationship | Address | Phone | + + +---------+ + | Misty Oneill | ECON | Unknown | | + + +---------+ + Care Team Providers + +------+ + | Care Inventory Worker Name | Role | Phone | [...] | | Transplant Services | RN [address] [facility] | Tracking | | | | [address] | [address] | | | | | [address] [place], | [place], [place] | | | | | [place] [address] | [address] | | | | | [phone] | | | +--------+ + + + [...]
--- OUTSIDE RECORDS SUMMARY | ~2019-12-22 | XMS | Encounter Summary ---
Demographics + + + | Address | [address] [address] | | | [place] [address] | + + + | Home Phone [...] [place], [place] | | | | | [address] | | + + + + + | Misty Boateng | ECON | [address] | | | | | [place], [place] | | | | | [address] | | + + + + + Care Team Providers + +------+ + | Care Switch Technician Name | Role | Phone | + +------+ + PCP | Unavailable | + +------+ + Encounter Details +--------+ + + + + | Date | Type | Department | Care Team | Description | +--------+ + + + + | 09/27/ | Hospital | [facility] | Travis Randall MD | ESRD (end stage | | 2016 | Encounter | [facility] | [address] | renal disease) ([facility]) | | | | [address] | [address] [place], [place] | | | | | [place] | [address] | | | | | [address] | [phone] | | | | | [phone] | | | +--------+ + + + [...] + + + | Blood Pressure | 116/68 | 09/28/2015 11:16 AM | | | | | PST | | + + + + + | Pulse | 70 | 09/28/2015 11:16 AM | | | | | PST | | + + + + + | Temperature | 36.6 C (97.9 F) | 09/28/2015 11:16 AM | | | | | PST | | + + + + + | Respiratory Rate | 16 | 09/28/2015 11:16 AM | | | | | PST | | + + + + + | Oxygen Saturation | - | - | | + + + + + | Inhaled Oxygen | - | - | | | Concentration | | | | + + + + + | Weight | 91.6 kg (201 lb 15 | 09/28/2015 11:16 AM | | | | oz) | PST | | + + + + + | Height | 182.9 cm (6') | 09/28/2015 11:16 AM | | | | | PST | | + + + + + | Body Mass Index | 27.39 | 09/28/2015 11:16 AM | | | | | PST | | + + + + + documented in this encounter Medications at Time [...] + + + +---------+ + + | cholecalciferoL | Take 1,000 Units by | | 0 | | | | (VITAMIN D-3) 1,000 | mouth Daily. | | | | 6 | | units CAPS capsule | | | | | | + [...] documented as of this encounter Progress Notes Conversion Transaction, Provider Unknown - 09/28/2015 11:15 AM PSTFormatting of this note m ight be different from the original. Nurse Progress Note by Rosalina Rangel RN at 09/28/151114 Author: Rosalina Rangel RN Service: (none) Author Type: Registered Nurse Filed: 09/28/151115 Date of Service: 09/28/151114 Status: Signed Wire Frame Dipper: Rosalina Rangel RN (Registered Nurse) Discharge instructions went over with patient and patient all questions answered and p rescriptions sent home with patient. onver benson Transaction, Provider Unknown - 09/28/2015 10:55 AM PST Progress Notes by Nikolai Victor RPH at 09/28/151054 Author: Nikolai Victor RPH Service: Pharmacy Author Type: Pharmacist Filed: 09/28/15 2272 Date of Service: 09/28/151054 Status: Signed Wire Frame Dipper: Nikolai Vitcor RPH (Pharmacist) Renal Dosing Monitoring: Seema A Oneill 44 y.o. male Pharmacy dosing for renal function per Dr. Randall PD patient, no changes Pharmacy will continue monitoring patient for appropriate dosing per renal function. 09/28/2015 10:54 AM Pharmacist: NIKOLAI VICTOR Pamela painter in this encounter Plan of Treatment +--------+---------+ + + + | Date | Type | Specialty | Care Team | Description | +--------+---------+ + + + | 03/20/ | Office | Nephrology | Christine Martinez, | | | 2019 | Visit | | MD [address] | | | | | | [address] [place] | | | | | | [place] [address] | | | | | | [phone] | | | | | | | | +--------+---------+ + + + documented as of this encounter Procedures + +--------+ + + + | Procedure Name | Priori | Date/Time | Associated Diagnosis | Comments | | | ty | | | | + +--------+ + + + | POTASSIUM | Routin | 09/28/2015 | | Results for this | | | e | 8:40 AM | | procedure are in the | | | | PST | | results section. | + +--------+ + + + documented in this encounter Results Potassium (09/28/2015 8:40 AM PST) + + + + + + | Component | Value | Ref Range | Performed | Pathologist | | | | | At | Signature | + + + + + + | K | 4.6Comment: Testing | 3.5 - 4.9 | EXTERNAL | | | | performed at [facility] [place] | mmol/L | LAB | | | | [place] | | | | | | [address] | | | | + + + [...] + | Diagnosis | + + | ESRD (end stage renal disease) (HCC) End stage renal disease | + + documented in this encounter"
--- OUTSIDE RECORDS SUMMARY | ~2019-12-22 | XMS | Encounter Summary ---
Demographics + + + | Address | [address] [place] [address] | | | [place] [address] | + + + | Home Phone | | + + + | Preferred Language | Unknown | + + + | Marital Status | | + + + | Mormon Affiliation | CHR | + + + [...] Team Providers + +------+ + | Care Tailer Out Name | Role | Phone | + [...] + + | 02/17/ | Telephone | Clinical | Thi Aden, | KP Waitlist (routine | | 2018 | | Transplant Services | RN [address] | check in) | | | | [address] | [address] | | | | | [address], | [place], [place] | | | | | [place] [address] | [address] | | | | | [phone] | | | +--------+ + + + [...]
--- OUTSIDE RECORDS SUMMARY | ~2019-12-22 | XMS | Encounter Summary ---
Demographics + + + | Address | [address] | | | [place] [address] | + + + | Home Phone | | + + + | Preferred Language | Unknown | + + + | Marital Status | | + + + | Hinduism Affiliation | [address] | + + + [...] [place], [place] | | | | | [address] | | + + + + + | Misty Boateng | ECON | [address] | | | | | [place], [place] | | | | | [address] | | + + + + + Care Team Providers + +------+ + | Care Cath Lab Name | Role | Phone | + +------+ + PCP | Unavailable | + +------+ + Encounter Details +--------+ + + + + | Date | Type | Department | Care Team | Description | +--------+ + + + + | 06/20/ | Orders Only | [facility] | Christine Martinez W, | Interstitial | | 2015 | | NEPHROLOGY [address] | MD [address] | nephritis chronic | | | | [address] | [address] [place] | (Primary Dx) | | | | [place] | [place] [address] | | | | | [address] | [phone] | | | | | [phone] | | | +--------+ + + + [...] | | | | | [place] [address] | | | | | | [phone] | | | | | | | | +--------+---------+ + + + documented as of this encounter Visit Diagnoses + + | Diagnosis | + + | 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
--- OUTSIDE RECORDS SUMMARY | ~2019-12-22 | XMS | Encounter Summary ---
Demographics + + + | Address | [address] | | | [place] [address] | + + + | Home Phone | | + + + | Preferred Language | Unknown | + + + | Marital Status | | + + + | Sikh Affiliation | 1041 | + + + | Race | Unknown | + + + | Ethnic Group | Unknown | + + + Author + + + | Author | [facility] | | | and [place] | + + + | Organization | [facility] | | | and [place] | + + + | Address | Unknown | + + + | Phone | Unavailable | + + + Support + + + + + | Name | Relationship | Address | Phone | + + + + + | Ryan Oneill | ECON | [place], [place] | | | | | [address] | | + + + + + | Misty Boateng | ECON | [address] | | | | | [place] | | | | | [address] | | + + + + + Care Team Providers + +------+ + | Care Spooler Name | Role | Phone | + [...] | Nephrology | Diagnoses | Sitz, | Strobrettl, | | | | | Chronic | Hai | Peace Shirley DO | | | | | kidney | MD Bj | [address] | | | | | disease, | [address] | [address] | | | | | stage 4 | [place] | [address] | | | | | (severe) | [address] | [facility] [place] | | | | | (HCC) | [place], | [address] Phone: | | | | | Essential | [place] | [phone] | | | | | hypertension | [address] | Fax: | | | | | , benign | Phone: | [phone] | | | | | Procedures | [phone] | | | | | | AL OFFICE | Fax: | | | | | | OUTPATIENT | [phone] | | | | | | VISIT 25 | | | | | | | MINUTES | | | +--------+--------+ + + + + Encounter Details +--------+---------+ + + + | Date | Type | Department | Care Team | Description | +--------+---------+ + + + | 01/26/ | Office | [facility] | Christine Martinez W, | CKD (chronic kidney | | 2018 | Visit | NEPHROLOGY [address] | disease) stage 4, | | | | [address] | [address] [place] | GFR 15-29 ml/min | | | | [place], [place] | [place] [address] | ([facility]) (Primary Dx); | | | | [address] | [phone] | Essential | | | | [phone] | | hypertension; Anemia | | | | | | in stage 4 chronic | | | | | | kidney disease | | | | | | ([facility]); Secondary | | | | | | hyperparathyroidism | | | | | | ([facility]) | +--------+---------+ + + + Social [...] + | Blood Pressure | 118/72 | 01/26/2018 10:14 AM | | | | | PDT | | + + + + + | Pulse | 73 | 01/26/2018 10:14 AM | | | | | PDT | | + + + + + | Temperature | 36.9 C (98.4 F) | 01/26/2018 10:14 AM | | | | | PDT | | + + + + + | Respiratory Rate | 14 | 01/26/2018 10:14 AM | | | | | PDT | | + + + + + | Oxygen Saturation | 97% | 01/26/2018 10:14 AM | | | | | PDT | | + + + + + | Inhaled Oxygen | - | - | | | Concentration | | | | + + + + + | Weight | 86.8 kg (191 lb 5.8 | 01/26/2018 10:14 AM | | | | oz) | PDT | | + + + + + | Height | 182.9 cm (6') | 01/26/2018 10:14 AM | | | | | PDT | | + + + + + | Body Mass Index | 25.95 | 01/26/2018 10:14 AM | | | | | PDT | | + + + + + documented in this encounter Patient Instructions Patient Instructions Christine Martinez MD - 01/26/2018 10:00 AM PDTTo-do Start vitamin D 1000 Units once a day. documented in this encounter Progress Notes Christine Martinez MD - 01/26/2018 10:00 AM PDTFormatting of this note might be different f rom the original. Nephrology Follow-up Visit Visit date: 01/26/2018 [...] added to kidney transplant waiting list at [facility] Waiting time qualifying date: 10/04/15 04/28/16- Active on transplant list at [facility]. Referred to [facility]. Cleared for transplant by Dr. Lorenzo/ Dr. Reynolds on 02/15/16. Secondary hyperparathyroidism (HCC) 11/26/2015 H/O Gastric ulcer 11/08/2015 CKD (chronic kidney disease) stage 4, GFR 15-29 ml/min ([facility]) 10/29/2015 Note Last Updated: 10/20/2016 On [...] RBC, External 01/22/2018 2 Final UA Specific [place], External 01/22/2018 1.018 Final UA Leukocyte Esterase, [...] disease) stage 4, GFR 15-29 ml/min ([facility]) Due to chronic interstitia l nephropathy. History of dialysis x 10 months. eGFR >20 mL/min. Clinically, pt is doing well. Plan to contact [facility] Transplant, once eGFR is <20 for [...] Return in 4 months: renal, ua, upcr. documented in this encounter Plan of Treatment +--------+---------+ + + + | Date | Type | Specialty | Care Team | Description | +--------+---------+ + + + | 03/20/ | Office | Nephrology | Christine Martinez, | | | 2019 | Visit | | MD [address] | | | | | | [address] [facility] | | | | | | [place] [address] | | | | | | [phone] | | | | | | | [...] this encounter Results LABS - EXTERNAL SCAN (01/22/2018 12:00 AM PDT) + + + | Narrative | Performed At | + + + | Ordered by an | | | unspecified provider. | | + + + documented in this encounter Visit Diagnoses + + | Diagnosis | + + | CKD (chronic kidney disease) stage 4, GFR 15-29 ml/min ([facility]) - Primary Chronic kidney | | disease, Stage IV (severe) | + + | Essential hypertension Essential hypertension, benign | + + | Anemia in stage 4 chronic kidney disease (HCC) | + + | Secondary hyperparathyroidism (HCC) Secondary hyperparathyroidism (of renal origin) | + + documented in this encounter"
--- OUTSIDE RECORDS SUMMARY | ~2019-12-22 | XMS | Encounter Summary ---
Demographics + + + | Address | [address] [place] [address] | | | [place] [address] | + + + | Home Phone [...] Team Providers + +------+ + | Care Mess Cook Name | Role | Phone | + +------+ + | Jt Perkins MD | PCP | | + +------+ + Reason for Referral Diagnostic Testing (Urgent) + +--------+ + + + + | Status | Reason | Specialty | Diagnoses / | Referred By | Referred To | | | | | Procedures | Contact | Contact | + +--------+ + + + + | Authorized | | Radiology | Diagnoses | Gwendolyn, | External | | | | | Parotid | Adria Lao | Order | | | | | mass | [id number] | | | | | | Procedures | [address] | | | | | | US FINE | [address] | | | | | | NEEDLE | Rd | | | | | | ASPIRATE | [place], [place] | | | | | | TISSUE WITH | [address] | | | | | | GUIDANCE | Phone: | | | | | | | [phone] | | | | | | | Fax: | | | | | | | [phone] | | + +--------+ + + + + Encounter Details +--------+ + + + + | Date | Type | Department | Care Team | Description | +--------+ + + + + | 11/08/ | Telephone | Otolaryngology | Adria Snow | | | 2019 | | Head and Neck | LEAN[place]O Lao [address] [facility] | | | | | Surgery Services at | [facility] | | | | | [facility] [address] | [place], [place] | | | | | [place] Mailcode: | [phone] | | | | | [facility] | [phone] | | | | | and Healing, | | | | | | [address] | | | | | | [place], [place] | | | | | | [address] | | | | | | [phone] | | | +--------+ + + + [...] as of this encounter Plan of Treatment + +---------+--------+ + + | Name | Type | Priori | Associated Diagnoses | Order Schedule | | | | ty | | | + +---------+--------+ + + | US FINE NEEDLE | Imaging | Urgent | Left Parotid mass | Expected: | | ASPIRATE TISSUE WITH | | | | 11/09/2019, Expires: | | GUIDANCE | | | | 12/08/2020 | + +---------+--------+ + + documented as of this encounter Visit Diagnoses + + | Diagnosis | + + | Left Parotid mass - Primary Swelling, mass, or lump in head and neck | + + documented in this encounter"
--- OUTSIDE RECORDS SUMMARY | ~2019-12-22 | XMS | Encounter Summary ---
Demographics + + + | Address | [address] [place] [address] | | | [place] [address] | + + + | Home Phone [...] Providers + +------+ + | Care Staff Occupational Therapist Name | Role | Phone | + +------+ + | Jt Perkins MD | PCP | | + +------+ + Encounter Details +--------+ + + + + | Date | Type | Department | Care Team | Description | +--------+ + + + + | 11/17/ | MyChart | Otolaryngology | Tim Skinner MD | RE: pathology | | 2019 | Encounter | Head and Neck | [address] | results | | | | Surgery Services at | Kait Barrios [facility], | | | | | [facility] | [place] [address] | | | | | [place] Mailcode: | [phone] | | | | | [facility] | | | | | | and Healing, | | | | | | [address] | | | | | | [place], [place] | | | | | | [address] | | | | | | [phone] | | | +--------+ + + + [...]
--- OUTSIDE RECORDS SUMMARY | ~2019-12-22 | XMS | Encounter Summary ---
Demographics + + + | Address | [address] | | | [place] [address] | + + + | Home Phone | | + + + | Preferred Language | Unknown | + + + | Marital Status | | + + + | Caodaism Affiliation | 1041 | + + + | Race | Unknown | + + + | Ethnic Group | Unknown | + + + Author + + + | Author | [facility] | | | and [place] | + + + | Organization | [facility] | | | and [place] | + + + | Address | Unknown | + + + | Phone | Unavailable | + + + Support + + + + + | Name | Relationship | Address | Phone | + + + + + | Ryan Oneill | ECON | [place], [place] | | | | | [address] | | + + + + + | Misty Boateng | ECON | [address] | | | | | [place], [place] | | | | | [address] | | + + + + + Care Team Providers + +------+ + | Care Health Care Marketing Manager Name | Role | Phone | + +------+ + PCP | Unavailable | + +------+ + Encounter Details +--------+ + + + + | Date | Type | Department | Care Team | Description | +--------+ + + + + | 08/28/ | Abstract | [facility] | Christine Martinez W, | | | 2015 | | NEPHROLOGY [address] | | | | | [address] | [address] [place] | | | | | [place], [place] | [place] [address] | | | | | [address] | [phone] | | | | | [phone] | | | +--------+ + + + [...] | | | | | [place] [address] | | | | | | [phone] | | | | | | | | +--------+---------+ + + + documented as of this encounter Procedures + +--------+ + + + | Procedure Name | Priori | Date/Time | Associated Diagnosis | Comments | | | ty | | | | + +--------+ + + + | EXTERNAL LAB: ANIVAL | Routin | 08/27/2015 | | Results for this | | | e | | | procedure are in the | | | | | | results section. | + +--------+ + + + | EXTERNAL LAB: | Routin | 08/27/2015 | | Results for this | | GLUCOSE | e | | | procedure are in the | | | | | | results section. | + +--------+ + + + | EXTERNAL LAB: | Routin | 08/27/2015 | | Results for this | | ALBUMIN | e | | | procedure are in the | | | | | | results section. | + +--------+ + + + | EXTERNAL LAB: | Routin | 08/27/2015 | | Results for this | | PHOSPHORUS | e | | | procedure are in the | | | | | | results section. | + +--------+ + + + | EXTERNAL LAB: | Routin | 08/27/2015 | | Results for this | | CALCIUM | e | | | procedure are in the | | | | | | results section. | + +--------+ + + + | EXTERNAL LAB: CARBON | Routin | 08/27/2015 | | Results for this | | DIOXIDE | e | | | procedure are in the | | | | | | results section. | + +--------+ + + + | EXTERNAL LAB: | Routin | 08/27/2015 | | Results for this | | CHLORIDE | e | | | procedure are in the | | | | | | results section. | + +--------+ + + + | EXTERNAL LAB: | Routin | 08/27/2015 | | Results for this | | POTASSIUM | e | | | procedure are in the | | | | | | results section. | + +--------+ + + + | EXTERNAL LAB: SODIUM | Routin | 08/27/2015 | | Results for this | | | e | | | procedure are in the | | | | | | results section. | + +--------+ + + + | EXTERNAL LAB: EGFR | Routin | 08/27/2015 | | Results for this | | | e | | | procedure are in the | | | | | | results section. | + +--------+ + + + | EXTERNAL LAB: | Routin | 08/27/2015 | | Results for this | | CREATININE | e | | | procedure are in the | | | | | | results section. | + +--------+ + + + documented in this encounter Results External Lab: BUN (08/27/2015) + +--------+ + + + | Component | Value | Ref Range | Performed | Pathologist | | | | | At | Signature | + +--------+ + + + | ANIVAL, | 37 (A) | 6 - 23 | EXTERNAL | | | External | | | LAB | | + +--------+ + + + + +---------+ + + | Performing | Address | City/State/Zipcode | Phone Number | | Organization | | | | + +---------+ + + | EXTERNAL LAB | | | | + +---------+ + + External Lab: Glucose (08/27/2015) + +-------+ + + + | Component | Value | Ref Range | Performed | Pathologist | | | | | At | Signature | + +-------+ + + + | Glucose, | 98 | 70 - 100 | EXTERNAL | | | External | | | LAB | | + +-------+ + + + + +---------+ + + | Performing | Address | City/State/Zipcode | Phone Number | | Organization | | | | + +---------+ + + | EXTERNAL LAB | | | | + +---------+ + + External Lab: Albumin (08/27/2015) + +-------+ + + + | Component [...] + +---------+ + + External Lab: Phosphorus (08/27/2015) + +-------+ + + + | Component | Value | Ref Range | Performed | Pathologist | | | | | At | Signature | + +-------+ + + + | Phosphorus, | 3.6 | 2.5 - 5 | EXTERNAL | | | External | | | LAB | | + +-------+ + + + + +---------+ + + | Performing | Address | City/State/Zipcode | Phone Number | | Organization | | | | + +---------+ + + | EXTERNAL LAB | | | | + +---------+ + + External Lab: Calcium (08/27/2015) + +-------+ + + + | Component [...] +---------+ + + External Lab: Carbon Dioxide (08/27/2015) + +-------+ + + + | Component [...] + +---------+ + + External Lab: Chloride (08/27/2015) + +-------+ + + + | Component | Value | Ref Range | Performed | Pathologist | | | | | At | Signature | + +-------+ + + + | Chloride, | 105 | 100 - 110 | EXTERNAL | | | External | | | LAB | | + +-------+ + + + + +---------+ + + | Performing | Address | City/State/Zipcode | Phone Number | | Organization | | | | + +---------+ + + | EXTERNAL LAB | | | | + +---------+ + + External Lab: Potassium (08/27/2015) + +-------+ + + + | Component [...] + +---------+ + + External Lab: Sodium (08/27/2015) + +-------+ + + + | Component [...] + +---------+ + + External Lab: eGFR (08/27/2015) + +--------+ + + + | Component [...] + +---------+ + + External Lab: Creatinine (08/27/2015) + + + + + + | Component | Value | Ref Range | Performed | Pathologist | | | | | At | Signature | + + + + + + | Creatinine, | 3.79 (A) | 0.6 - 1.3 | EXTERNAL [...]
--- OUTSIDE RECORDS SUMMARY | ~2019-12-22 | XMS | Encounter Summary ---
Demographics + + + | Address | [address] [place] [address] | | | [place] [address] | + + + | Home Phone | | + + + | Preferred Language | Unknown | + + + | Marital Status | | + + + | Mandaeism Affiliation | CHR | + + + [...] Team Providers + +------+ + | Care Waybill Clerk Name | Role | Phone | + +------+ + | Jt Perkins MD | PCP | | + +------+ + Encounter Details +--------+ + + + + | Date | Type | Department | Care Team | Description | +--------+ + + + + | 09/01/ | Telephone | Transplant Social | [place], | | | 2019 | | Work [address] | [place] [facility] [address] | | | | | Michelle Adam | [address] [facility] | | | | | [address], [address] | [address] [place], [place] | | | | | [address] [place], [place] | [address] | | | | | [address] | [phone] | | | | | [phone] | | | +--------+ + + + [...]
--- OUTSIDE RECORDS SUMMARY | ~2019-12-22 | XMS | Encounter Summary ---
Demographics + + + | Address | [address] | | | [place] [address] | + + + | Home Phone | | + + + | Preferred Language | Unknown | + + + | Marital Status | | + + + | Church Affiliation | 1041 | + + + | Race | Unknown | + + + | Ethnic Group | Unknown | + + + Author + + + | Author | [facility] | | | and [place] | + + + | Organization | [facility] | | | and [place] | + + + | Address | Unknown | + + + | Phone | Unavailable | + + + Support + + + + + | Name | Relationship | Address | Phone | + + + + + | Ryan Oneill | ECON | [place], [place] | | | | | [address] | | + + + + + | Misty Boateng | ECON | [address] | | | | | [place] | | | | | [address] | | + + + + + Care Team Providers + +------+ + | Care Tour Leader Name | Role | Phone | + +------+ + PCP | Unavailable | + +------+ + Reason for Visit + + + | Reason | Comments | + + + | Appointment | Renal biopsy | + + + Encounter Details +--------+ + + + + | Date | Type | Department | Care Team | Description | +--------+ + + + + | 06/04/ | Telephone | [facility] | Christine Martinez, | Appointment (Renal | | 2015 | | NEPHROLOGY [address] | MD [address] | biopsy) | | | | [address] | [address] [facility] | | | | | [place] | [place] [address] | | | | | [address] | [phone] | | | | | [phone] | | | +--------+ + + + [...] | 09/01/ | Office | Nephrology | Brandy Martinezwilder Tirado, | | | 2019 | Visit | | [address] | | | | | | [address] [place] | | | | | | [place] [address] | | | | | | [phone] | | | | | | | | +--------+---------+ + + + documented as of this encounter Visit Diagnoses + + | Diagnosis | + + | Chronic kidney disease, stage IV (severe) (HCC) - Primary Chronic kidney disease, | | Stage IV (severe) | + + documented in this encounter"
--- OUTSIDE RECORDS SUMMARY | ~2019-12-22 | XMS | Encounter Summary ---
Demographics + + + | Address | [address] | | | [place] [address] | + + + | Home Phone [...] [place], [place] | | | | | [address] | | + + + + + | Misty Boateng | ECON | [address] | | | | | [place] | | | | | [address] | | + + + + + Care Team Providers + +------+ + | Care Marking Devices Assembler Name | Role | Phone | + [...] + + | 08/25/ | Telephone | [facility] | Christine Martinez W, | Blood Pressure | | 2019 | | NEPHROLOGY [address] | MD [address] | | | | | [address] | [address] [facility] | | | | | [place], [place] | [place] [address] | | | | | [address] | [phone] | | | | | [phone] | | | +--------+ + + + [...] | | | | | [place] [address] | | | | | | [phone] | | | | | | | | +--------+---------+ + + + documented as of this encounter Visit Diagnoses Not on filedocumented in this encounter"
--- OUTSIDE RECORDS SUMMARY | ~2019-12-22 | XMS | Encounter Summary ---
Demographics + + + | Address | [address] [place] [address] | | | [place] [address] | + + + | Home Phone | | + + + | Preferred Language | Unknown | + + + | Marital Status | | + + + | Mandaen Affiliation | CHR | + + + [...] Team Providers + +------+ + | Care Bore Mill Operator For Plastic Name | Role | Phone | + +------+ + | Hia Holman MD | PCP | | + +------+ + Encounter Details +--------+------+ + + + | Date | Type | Department | Care Team | Description | +--------+------+ + + + | 03/12/ | Lab | [facility] at [facility] | | Chronic Kidney | | 2008 | | [address] | | Disease, Stage III | | | | Loop Physician's | | (Moderate) (HCC) | | | | Michelle, 3rd floor | | | | | | [place], [place] | | | | | | [address] | | | | | | [phone] | | | +--------+------+ + + + Social History + + + +--------+------+ | Tobacco Use | Types | Packs/Day | Years | Date | | | | | Used | | + + + +--------+------+ | Current Every Day | Cigarettes | 0.5 | 10 | | | Smoker | | | [...] | + +--------+ + + + | DIFFERENTIAL | Routin | 03/12/2009 | | Results for this | | | e | 11:04 AM | | procedure are in the | | | | PDT | | results section. | + +--------+ + + + | CBC, WITH | Routin | 03/12/2009 | Chronic Kidney | Results for this | | DIFFERENTIAL | e | 11:04 AM | Disease, Stage III | procedure are in the | | | | PDT | (Moderate) ([facility]) | results section. | + +--------+ + + + | RENAL FUNCTION SET | Routin | 03/12/2009 | Chronic Kidney | Results for this | | (NA,K,CL,CO2,BUN,CRE | e | 11:04 AM | Disease, Stage III | procedure are in the | | AT,GLUC,CA,PHOS,ALB | | PDT | (Moderate) ([facility]) | results section. | | ) | | | | | + +--------+ + + + | SEDIMENTATION RATE | Routin | 03/12/2009 | Chronic Kidney | Results for this | | | e | 11:04 AM | Disease, Stage III | procedure are in the | | | | PDT | (Moderate) ([facility]) | results section. | + +--------+ + + + documented in this encounter Results DIFFERENTIAL (03/12/2009 11:04 AM PDT) + +---------+ + + + | Component | Value | Ref Range | Performed | Pathologist | | | | | At | Signature | + +---------+ + + + | NEUTROPHIL | 92 (H) | 50 - 70 % | [facility] | | | % | | | DEPARTMENT | | | | | | OF | | | | | | PATHOLOGY | | + +---------+ + + + | LYMPHOCYTE | 4 (L) | 18 - 42 % | [facility] | | | % | | | DEPARTMENT | | | | | | OF | | | | | | PATHOLOGY | | + +---------+ + + + | MONOCYTE % | 4 | 2 - 8 % | [facility] | | | | | | DEPARTMENT | | | | | | OF | | | | | | PATHOLOGY | | + +---------+ + + + | EOS % | 0 (L) | 1 - 3 % | [facility] | | | | | | DEPARTMENT | | | | | | OF | | | | | | PATHOLOGY | | + +---------+ + + + | BASO % | 0 | <3 % | [facility] | | | | | | DEPARTMENT | | | | | | OF | | | | | | PATHOLOGY | | + +---------+ + + + | NEUTROPHIL | 9.6 (H) | 1.8 - 7.7 K/cu | [facility] | | | # | | mm | DEPARTMENT | | | | | | OF | | | | | | PATHOLOGY | | + +---------+ + + + | LYMPHOCYTE | 0.4 (L) | 1.0 - 4.8 K/cu | [facility] | | | # | | mm | DEPARTMENT | | | | | | OF | | | | | | PATHOLOGY | | + +---------+ + + + | MONOCYTE # | 0.4 | <0.9 K/cu mm | [facility] | | | | | | DEPARTMENT | | | | | | OF | | | | | | PATHOLOGY | | + +---------+ + + + | EOS # | 0.0 | <0.6 K/cu mm | [facility] | | | | | | DEPARTMENT | | | | | | OF | | | | | | PATHOLOGY | | + +---------+ + + + | BASO # | 0.0 | <0.2 | [facility] | | | | | | DEPARTMENT | | | | | | OF | | | | | | PATHOLOGY | | + +---------+ + + + + + | Specimen | + + | | + + + + + + + | Performing | Address | City/State/Zipcode | Phone Number | | Organization | | | | + + + + + | [facility] DEPARTMENT OF | [address] | [place] [address] | | | PATHOLOGY | [address] | | | + + + + + | [facility] | [address] | [place] [address] | | | PATHOLOGY | [address] | | | + + + + + SEDIMENTATION RATE (03/12/2009 11:04 AM PDT) + +-------+ + + + | Component | Value | Ref Range | Performed | Pathologist | | | | | At | Signature | + +-------+ + + + | SEDIMENTATI | 8 | <16 mm/hr | [facility] | | | ON RATE | | | DEPARTMENT | | | | | | OF | | | | | | PATHOLOGY | | + +-------+ + + + + + | Specimen | + + | Blood - Blood | + + + + + + + | Performing | Address | City/State/Zipcode | Phone Number | | Organization | | | | + + + + + | [facility] | [address] [facility] | [place] [address] | | | PATHOLOGY | [address] | | | + + + + + | [facility] | [address] [facility] | [place] [address] | | | PATHOLOGY | [address] | | | + + + + + RENAL FUNCTION SET (NA,K,CL,CO2,BUN,CREAT,GLUC,CA,PHOS,ALB ) (03/12/2009 11:04 AM PDT) + + + + + + | Component | Value | Ref Range | Performed | Pathologist | | | | | At | Signature | + + + + + + | GLUCOSE, | 73 | 60 - 99 mg/dL | [facility] | | | PLASMA | | | DEPARTMENT | | | (LAB) | | | OF | | | | | | PATHOLOGY | | + + + + + + | BUN, PLASMA | 32 (H) | 6 - 20 mg/dL | [facility] | | | (LAB) | | | DEPARTMENT | | | | | | OF | | | | | | PATHOLOGY | | + + + + + + | CREATININE | 2.04 (H) | 0.70 - 1.30 | [facility] | | | PLASMA | | mg/dL | DEPARTMENT | | | (LAB) | | | OF | | | | | | PATHOLOGY | | + + + + + + | ALBUMIN, | 3.9 | 3.5 - 4.7 g/dL | [facility] | | | PLASMA | | | DEPARTMENT | | | (LAB) | | | OF | | | | | | PATHOLOGY | | + + + + + + | CALCIUM, | 9.1 | 8.6 - 10.2 | [facility] | | | PLASMA | | mg/dL | DEPARTMENT | | | (LAB) | | | OF | | | | | | PATHOLOGY | | + + + + + + | PHOSPHORUS, | 3.3 | 2.4 - 4.7 mg/dL | [facility] | | | PLASMA | | | DEPARTMENT | | | (LAB) | | | OF | | | | | | PATHOLOGY | | + + + + + + | SODIUM, | 142 | 134 - 143 | [facility] | | | PLASMA | | mmol/L | DEPARTMENT | | | (LAB) | | | OF | | | | | | PATHOLOGY | | + + + + + + | POTASSIUM, | 4.8 | 3.4 - 5.0 | [facility] | | | PLASMA | | mmol/L | DEPARTMENT | | | (LAB) | | | OF | | | | | | PATHOLOGY | | + + + + + + | CHLORIDE, | 105 | 97 - 108 mmol/L | [facility] | | | PLASMA | | | DEPARTMENT | | | (LAB) | | | OF | | | | | | PATHOLOGY | | + + + + + + | TOTAL CO2, | 32 (H) | 23 - 31 mmol/L | [facility] | | | PLASMA | | | DEPARTMENT | | | (LAB) | | | OF | | | | | | PATHOLOGY | | + + + + + + + + | Specimen | + + | Blood - Blood | + + + + + | Narrative | Performed At | + + + | [id number] Estimated GFR = 37 mL/min/1.73 sq m if non- | [facility] | | [place] [id number] Estimated GFR = 45 mL/min/1.73 sq m if | DEPARTMENT OF | | [place] GFR is estimated using the MDRD equation recommended by | PATHOLOGY | | the National Kidney Disease Education Program. Estimated GFR | | | Interpretive Information: <60 mL/min/1.73 sq m Chronic Kidney | | | Disease <15 mL/mon/1.73 sq m Kidney Failure Estimated GFR | | | greater than 60mL/min/1.73 is of limited clinical Value. The MDRD | | | equation is not valid in the following situations: - Patients under | | | 18 years of age - Severe malnutrition or obesity - Vegetarian diet | | | - Rapidly changing kidney function | | + + + + + + + + | Performing | Address | City/State/Zipcode | Phone Number | | Organization | | | | + + + + + | [facility] | [address] [facility] | [place] [address] | | | PATHOLOGY | [address] | | | + + + + + | [facility] | [address] [facility] | [place] [address] | | | PATHOLOGY | [address] | | | + + + + + CBC, WITH DIFFERENTIAL (03/12/2009 11:04 AM PDT) + + + + + + | Component | Value | Ref Range | Performed | Pathologist | | | | | At | Signature | + + + + + + | WHITE CELL | 10.4 | 4.4 - 11.0 K/cu | [facility] | | | COUNT | | mm | DEPARTMENT | | | | | | OF | | | | | | PATHOLOGY | | + + + + + + | RED CELL | 4.49 (L) | 4.50 - 5.90 | [facility] | | | COUNT | | M/cu mm | DEPARTMENT | | | | | | OF | | | | | | PATHOLOGY | | + + + + + + | HEMOGLOBIN | 13.9 | 13.5 - 17.5 | [facility] | | | | | g/dL | DEPARTMENT | | | | | | OF | | | | | | PATHOLOGY | | + + + + + + | HEMATOCRIT | 40.6 (L) | 41.0 - 53.0 % | [facility] | | | | | | DEPARTMENT | | | | | | OF | | | | | | PATHOLOGY | | + + + + + + | MCV | 90.4 | 80.0 - 96.0 fL | [facility] | | | | | | DEPARTMENT | | | | | | OF | | | | | | PATHOLOGY | | + + + + + + | MCHC | 34.3 | 33.4 - 35.5 | [facility] | | | | | g/dL | DEPARTMENT | | | | | | OF | | | | | | PATHOLOGY | | + + + + + + | RDW | 15.4 (H) | 11.5 - 15.0 % | [facility] | | | | | | DEPARTMENT | | | | | | OF | | | | | | PATHOLOGY | | + + + + + + | PLATELET | 247 | 150 - 400 K/cu | [facility] | | | COUNT | | mm | DEPARTMENT | | | | | | OF | | | | | | PATHOLOGY | | + + + + + + + + | Specimen | + + | Blood - Blood | + + + + + + + | Performing | Address | City/State/Zipcode | Phone Number | | Organization | | | | + + + + + | [facility] DEPARTMENT | [address] | [place] [address] | | | PATHOLOGY | [address] | | | + + + + + | [facility] | [address] [facility] | [place] [address] | | | PATHOLOGY | [address] | | | + + + + + documented in this encounter Visit Diagnoses + + | Diagnosis | + + | Chronic kidney disease, stage III (moderate) (HCC) Chronic kidney disease, Stage III | | (moderate) | + + documented in this encounter"
--- OUTSIDE RECORDS SUMMARY | ~2019-12-22 | XMS | Encounter Summary ---
Demographics + + + | Address | [address] [place] [address] | | | [place] [address] | + + + | Home Phone [...] Team Providers + +------+ + | Care Powder Core Tester Name | Role | Phone | + +------+ + | Jt Perkins MD | PCP | | + +------+ + Encounter Details +--------+ + + + + | Date | Type | Department | Care Team | Description | +--------+ + + + + | 12/12/ | Documentati | Otolaryngology | Tim Skinner MD | | | 2020 | on | Head and Neck | [address] | | | | | Surgery Services at | [place], | | | | | [facility] [address] | [place] [address] | | | | | [place] Mailcode: | [phone] | | | | | [facility] | | | | | | and Healing, | | | | | | [address] | | | | | | [place], [place] | | | | | | [address] | | | | | | [phone] | | | +--------+ + + + [...]
--- OUTSIDE RECORDS SUMMARY | ~2019-12-22 | XMS | Encounter Summary ---
Demographics + + + | Address | [address] | | | [place] [address] | + + + | Home Phone | | + + + | Preferred Language | Unknown | + + + | Marital Status | | + + + | Nondenominational Affiliation | 1041 | + + + | Race | Unknown | + + + | Ethnic Group | Unknown | + + + Author + + + | Author | [facility] | | | and [place] | + + + | Organization | [facility] | | | and [place] | + + + | Address | Unknown | + + + | Phone | Unavailable | + + + Support + + + + + | Name | Relationship | Address | Phone | + + + + + | Ryan nOeill | ECON | [place], [place] | | | | | [address] | | + + + + + | Misty Boateng | ECON | [address] | | | | | [place], [place] | | | | | [address] | | + + + + + Care Team Providers + +------+ + | Care Quality Improvement Engineer Name | Role | Phone | + +------+ + PCP | Unavailable | + +------+ + Encounter Details +--------+ + + + + | Date | Type | Department | Care Team | Description | +--------+ + + + + | 05/30/ | Orders Only | [facility] | Christine Martinez W, | Chronic kidney | | 2015 | | NEPHROLOGY [address] | disease, stage IV | | | | [address] | [address] [place] | (severe) (HCC) | | | | [place], [place] | [place] [address] | (Primary Dx); | | | | [address] | [phone] | Interstitial | | | | [phone] | | nephritis chronic | +--------+ + [...] encounter Progress Notes Kenyatta Jacome RN - 05/30/2015 8:13 AM PSTLabs only [facility] by Kenyatta Jacome RN at 05/30/2015 8:13 AM PSTdocumented in this e ncounter Plan of Treatment +--------+---------+ + + + | Date | Type | Specialty | Care Team | Description | +--------+---------+ + + + | 03/20/ | Office | Nephrology | Christine Martinez, | | | 2019 | Visit | | [address] | | | | | | [address] [place] | | | | | | [place] [address] | | | | | | [phone] | | | | | | | [...]
--- OUTSIDE RECORDS SUMMARY | ~2019-12-22 | XMS | Encounter Summary ---
Demographics + + + | Address | [address] | | | [place] [address] | + + + | Home Phone [...] [place], [place] | | | | | [address] | | + + + + + | Misty Boateng | ECON | [address] | | | | | [place] | | | | | [address] | | + + + + + Care Team Providers + +------+ + | Care Emr Trainer Name | Role | Phone | + [...] | | | nephritis | [address] | [place] [address] | | | | | Procedures | [place] | [address] [place] | | | | | ID OFFICE | [address] | [facility] [place] | | | | | OUTPATIENT | [place], | [address] Phone: | | | | | VISIT 25 | [place] | [phone] | | | | | MINUTES | [address] | Fax: | | | | | | Phone: | [phone] | | | | | | [phone] | | | | | | | Fax: | | | | | | | [phone] | | +--------+--------+ + + + + [...] | | [address] | [place] | (Primary Dx) | | | | [place], [place] | [place], [place] | | | | | [address] | [address] | | | | | [phone] | | | +--------+ + + + [...] 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 MEDS: Outpatient Prescriptions Marked as Taking [...] whit ears to still have some modest [place] function. 2. Hypertension--good control from review of [...] rechecking his Hb weekly. 3. I encouraged Hennessey Ward, that he is doing an excellent job with his diet, adequacy and PO4 control. 4. Will recheck him in one month with lab. : [place] Lorenzo MD, [facility], [facility] documented in thi s encounter [...] | | | | | [place] [address] | | | | | | [phone] | | | | | | | | +--------+---------+ + + + documented as of this encounter Visit Diagnoses + + | Diagnosis | + + | End stage renal disease (HCC) - Primary End stage renal disease | + + documented in this encounter"
--- OUTSIDE RECORDS SUMMARY | ~2019-12-22 | XMS | Encounter Summary ---
Demographics + + + | Address | [address] | | | [place] [address] | + + + | Home Phone | | + + + | Preferred Language | Unknown | + + + | Marital Status | | + + + | Congregational Affiliation | 1041 | + + + | Race | Unknown | + + + | Ethnic Group | Unknown | + + + Author + + + | Author | [facility] | | | and [place] | + + + | Organization | [facility] | | | and [place] | + + + | Address | Unknown | + + + | Phone | Unavailable | + + + Support + + + + + | Name | Relationship | Address | Phone | + + + + + | Ryan nOeill | ECON | [place], [place] | | | | | [address] | | + + + + + | Misty Boateng | ECON | [address] | | | | | [place] | | | | | [address] | | + + + + + Care Team Providers + +------+ + | Care Grant Writer Name | Role | Phone | + [...] + + | 08/23/ | Telephone | [facility] | Christine Martinez W, | Blood Pressure | | 2019 | | NEPHROLOGY [address] | MD [address] | | | | | [address] | [address] [facility] | | | | | [place], [place] | [place] [address] | | | | | [address] | [phone] | | | | | [phone] | | | +--------+ + + + [...] | | | | | [place] [address] | | | | | | [phone] | | | | | | | | +--------+---------+ + + + documented as of this encounter Visit Diagnoses Not on filedocumented in this encounter"
--- OUTSIDE RECORDS SUMMARY | ~2019-12-22 | XMS | Encounter Summary ---
Demographics + + + | Address | [address] | | | [place] [address] | + + + | Home Phone | | + + + | Preferred Language | Unknown | + + + | Marital Status | | + + + | Episcopalian Affiliation | 1041 | + + + [...] [place], [place] | | | | | [address] | | + + + + + | Misty Boateng | ECON | [address] | | | | | [place], [place] | | | | | [address] | | + + + + + Care Team Providers + +------+ + | Care Tombstone Polisher Name | Role | Phone | + +------+ + PCP | Unavailable | + +------+ + Encounter Details +--------+ + + + + | Date | Type | Department | Care Team | Description | +--------+ + + + + | 11/17/ | Orders Only | [facility] [place] | Christine Martinez W, | CKD (chronic kidney | | 2017 | | NEPHROLOGY [address] | [address] | disease) stage 4, | | | | [address] | [address] [place] | GFR 15-29 ml/min | | | | [place], [place] | [place] [address] | ([facility]) (Primary Dx) | | | | [address] | [phone] | | | | | [phone] | | | +--------+ + + + [...] | | | | | [place] [address] | | | | | | [phone] | | | | | | | | +--------+---------+ + + + documented as of this encounter Visit Diagnoses + + | Diagnosis | + + | CKD (chronic kidney disease) stage 4, GFR 15-29 ml/min ([facility]) - Primary Chronic kidney | | disease, Stage IV (severe) | + + documented in this encounter"
--- OUTSIDE RECORDS SUMMARY | ~2019-12-22 | XMS | Encounter Summary ---
Demographics + + + | Address | [address] [place] [address] | | | [place] [address] | + + + | Home Phone | | + + + | Preferred Language | Unknown | + + + | Marital Status | | + + + | Confucianism Affiliation | CHR | + + + | Race | White | + + + | Ethnic Group | Not or | + + + Author + + + | Author | [facility] | + + + | Organization | [facility] | + + + | Address | Unknown | + + + | Phone | Unavailable | + + + Support + + +---------+ + | Name | Relationship | Address | Phone | + + +---------+ + | Misty Oneill | ECON | Unknown | | + + +---------+ + Care Team Providers + +------+ + | Care Senior Web Applications Developer Name | Role | Phone | + +------+ + | Hai Holman MD | PCP | | + +------+ + Reason for Visit + + + | Reason | Comments | + + + | Lab Results | MDRD 6: 01/07/17 | + + + Encounter Details +--------+ + + + + | Date | Type | Department | Care Team | Description | +--------+ + + + + | 03/25/ | Abstract | Clinical | Santos Lorenzo, | Lab Results (MDRD 6: | | 2017 | | Transplant Services | [address] | 01/07/17) | | | | [address] | [address] | | | | | [place], | [place], [place] | | | | | [place] [address] | [address] | | | | | [phone] | [phone] | | | | | | | [...] + | MDRD 6 | Routin | 01/07/2017 | | Results for this | | | e | | | procedure are in the | | | | | | results section. | + +--------+ + + + documented in this encounter Results MDRD 6 (01/07/2017) + + + + + + | Component | Value | Ref Range | Performed | Pathologist | | | | | At | Signature | + + + + + + | MDRD6 | 27.38 | | NON [facility] | | | | | | LAB | | + + + + + + | BUN, PLASMA | 28 (H) | mg/dL | NON [facility] | | | (LAB) | | | LAB | | + + + + + + | CREATININE | 2.87 (H) | mg/dL | NON [facility] | [...] Performed At | + + + | [facility] | NON [facility] | | [id number] [address] | | |[place] [address] | | + + + + +---------+ + + | Performing | Address | City/State/Zipcode | Phone Number | | Organization | | | | + +---------+ + + | NON [facility] | | | | + +---------+ + + documented in this encounter Visit Diagnoses Not on filedocumented in this encounter"
--- OUTSIDE RECORDS SUMMARY | ~2019-12-22 | XMS | Encounter Summary ---
Demographics + + + | Address | [address] | | | [place] [address] | + + + | Home Phone | | + + + | Preferred Language | Unknown | + + + | Marital Status | | + + + | Pentecostal Affiliation | 1041 | + + + | Race | Unknown | + + + | Ethnic Group | Unknown | + + + Author + + + | Author | [facility] | | | and [place] | + + + | Organization | [facility] | | | and [place] | + + + | Address | Unknown | + + + | Phone | Unavailable | + + + Support + + + + + | Name | Relationship | Address | Phone | + + + + + | Ryan Oneill | ECON | [place], [place] | | | | | [address] | | + + + + + | Misty Boateng | ECON | [address] | | | | | [place], [place] | | | | | [address] | | + + + + + Care Team Providers + +------+ + | Care Operator Bearer Systems Name | Role | Phone | + [...] NEPHROLOGY [address] | MD [address] | | | | | [address] | [address] [place] | | | | | [place], [place] | [place] [address] | | | | | [address] | [phone] | | | | | [phone] | | | +--------+--------+ + + + [...] | | | | | [place] [address] | | | | | | [phone] | | | | | | | | +--------+---------+ + + + documented as of this encounter Visit Diagnoses Not on filedocumented in this encounter"
--- OUTSIDE RECORDS SUMMARY | ~2019-12-22 | XMS | Encounter Summary ---
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 to mitigate risk. I advised the patient regarding NPO requirements, hydration before surgery, showering, general body hygiene. All pre-procedure instructions given to the patient (after-visit summary). All of patient's questions were a ddressed. The patient verbalized understanding of the instructions given. Thank you for the opportunity to contribute to this patient's care. JASVIR Stack PRE-OPERATIVE MEDICINE CLINIC [facility] Building [address] [place] [address] [phone] (fax) documented in this encounter Plan of Treatment Not on filedocumented as of this encounter Visit Diagnoses + + | Diagnosis | + + | Preoperative examination - Primary Preoperative examination, unspecified | + + | Crohn's disease with complication, unspecified gastrointestinal tract location (HCC) | + + | Chronic kidney disease, stage IV (severe) (HCC) Chronic kidney disease, Stage IV | | (severe) | + + | Benign hypertension Essential hypertension, benign | + + | Left Parotid mass Swelling, mass, or lump in head and neck | + + | Depression, unspecified depression type | + + | History of peritoneal dialysis | + + | History of anemia Personal history of diseases of blood and blood-forming organs | + + | Parotitis Sialoadenitis | + + | Hypothyroidism, unspecified type | + + | DEBBIE (obstructive sleep apnea) Obstructive sleep apnea (adult) (pediatric) | + + | Gastroesophageal reflux disease, esophagitis presence not specified | + + | DDD (degenerative disc disease), lumbar Degeneration of lumbar or lumbosacral | | intervertebral disc | + + documented in this encounter
--- OUTSIDE RECORDS SUMMARY | ~2019-12-22 | XMS | Encounter Summary ---
Demographics + + + | Address | [address] | | | [place] [address] | + + + | Home Phone [...] [place], [place] | | | | | [address] | | + + + + + | Misty Boateng | ECON | [address] | | | | | [place] | | | | | [address] | | + + + + + Care Team Providers + +------+ + | Care Student Records Coordinator Name | Role | Phone | [...] | +--------+ + + + + | 01/12/ | Telephone | [facility] | Christine Martinez W, | Blood Pressure | | 2019 | | NEPHROLOGY [address] | MD [address] | | | | | [address] | [address] [facility] | | | | | [place], [place] | [place] [address] | | | | | [address] | [phone] | | | | | [phone] | | | +--------+ + + + [...] | | | | | [place] [address] | | | | | | [phone] | | | | | | | | +--------+---------+ + + + documented as of this encounter Visit Diagnoses Not on filedocumented in this encounter"
--- OUTSIDE RECORDS SUMMARY | ~2019-12-22 | XMS | Encounter Summary ---
Demographics + + + | Address | [address] | | | [place] [address] | + + + | Home Phone | | + + + | Preferred Language | Unknown | + + + | Marital Status | | + + + | Mormonism Affiliation | 1041 | + + + | Race | Unknown | + + + | Ethnic Group | Unknown | + + + Author + + + | Author | [facility] | | | and [place] | + + + | Organization | [facility] | | | and [place] | + + + | Address | Unknown | + + + | Phone | Unavailable | + + + Support + + + + + | Name | Relationship | Address | Phone | + + + + + | Ryan Oneill | ECON | [place], [place] | | | | | [address] | | + + + + + | Misty Boateng | ECON | [address] | | | | | [place] | | | | | [address] | | + + + + + Care Team Providers + +------+ + | Care Management Intern Name | Role | Phone | [...] | | | | stage 4 | [place] | [address] [place] | | | | | (severe) | [address] | [place] | | | | | (HCC) | [place], | [address] Phone: | | | | | Essential | [place] | [phone] | | | | | hypertension | [address] | Fax: | | | | | , benign | Phone: | [phone] | | | | | Procedures | [phone] | | | | | | [place] [facility] | Fax: | | | | | | OUTPATIENT | [phone] | | | | | | VISIT 25 | | | | | | | MINUTES | | | +--------+--------+ + + + + Encounter Details +--------+---------+ + + + | Date | Type | Department | Care Team | Description | +--------+---------+ + + + | 08/17/ | Office | [facility] | Christine Martinez W, | CKD (chronic kidney | | 2019 | Visit | NEPHROLOGY [address] | [address] | disease) stage 4, | | | | [address] | [address] [place] | GFR 15-29 ml/min | | | | [place], [place] | [place] [address] | ([facility]) (Primary Dx); | | | | [address] | [phone] | Essential | | | | [phone] | | hypertension | +--------+---------+ + + [...] added to kidney transplant waiting list at [facility] Waiting time qualifying date: 10/04/15 04/28/16- Active on transplant list at [facility]. Referred to [facility]. Cleared for transplant by Dr. [...] RBC, External 08/11/2018 5 Final UA Specific [place], External 08/11/2018 1.017 Final UA Leukocyte Esterase, [...] | | | | | [place], [place] [address] | | | | | | [phone] | | | | | | | [...] kidney disease) stage 4, GFR 15-29 ml/min ([facility]) - Primary Chronic kidney | | disease, Stage IV (severe) | + + | Essential hypertension Unspecified essential hypertension | + + documented in this encounter"
--- OUTSIDE RECORDS SUMMARY | ~2019-12-22 | XMS | Encounter Summary ---
Demographics + + + | Address | [address] [place] [address] | | | [place] [address] | + + + | Home Phone [...] Team Providers + +------+ + | Care Forest Fire Fighter Name | Role | Phone | + +------+ + | Hai Holman MD | PCP | | + +------+ + Reason for Visit + + + | Reason | Comments | + + + | Transplant Status | MDRD 25.7 | | Change | | + + + Encounter Details +--------+ + + + + | Date | Type | Department | Care Team | Description | +--------+ + + + + | 09/19/ | Telephone | Clinical | Thi Aden, | Transplant Status | | 2017 | | Transplant Services | RN [address] | Change (MDRD 25.7) | | | | [address] | [address] | | | | | [place], | [place], [place] | | | | | [place] [address] | [address] | | | | | [phone] | | | +--------+ + + + [...]
--- OUTSIDE RECORDS SUMMARY | ~2019-12-22 | XMS | Encounter Summary ---
Demographics + + + | Address | [address] | | | [place] [address] | + + + | Home Phone | | + + + | Preferred Language | Unknown | + + + | Marital Status | | + + + | Nondenominational Affiliation | 1041 | + + + | Race | Unknown | + + + | Ethnic Group | Unknown | + + + Author + + + | Author | [facility] | | | and [place] | + + + | Organization | [facility] | | | and [place] | + + + | Address | Unknown | + + + | Phone | Unavailable | + + + Support + + + + + | Name | Relationship | Address | Phone | + + + + + | Ryan Oneill | ECON | [place], [place] | | | | | [address] | | + + + + + | Misty Boateng | ECON | [address] | | | | | [place], [place] | | | | | [address] | | + + + + + Care Team Providers + +------+ + | Care Technician Name | Role | Phone | + +------+ + PCP | Unavailable | + +------+ + Encounter Details +--------+ + + + + | Date | Type | Department | Care Team | Description | +--------+ + + + + | 11/11/ | Documentati | [facility] | Peace Drake | | | 2016 | on | NEPHROLOGY [address] | M, DO [address] | | | | | [address] | [place] | | | | | [place], [place] | [place], [place] | | | | | [address] | [address] | | | | | [phone] | | | +--------+ + + + [...] + + + | Blood Pressure | 132/84 | 11/12/2015 3:16 PM | | | | | PDT | | + + + + + | Pulse | - | - | | + + + + + | Temperature | 36 C (96.8 F) | 11/12/2015 3:16 PM | | | | | PDT [...] | 91.9 kg (202 lb 9.6 | 11/12/2015 3:16 PM | | | | oz) | PDT | | + + + + + | Height | - | - | | + + + + + | Body Mass Index | 27.48 | 11/08/2015 10:00 AM | | | | | PDT | | + + + + + documented in this encounter Progress Notes Mandy Negrete - 11/30/2015 1:01 PM PDTPeritoneal dialysis monthly progress note e-faxed to Hai Holman MD, Pan Jhaveri MD, Travis Randall MD, [facility] on . trobrettl, Peace Shirley DO - 11/12/2015 3:15 PM PDT Subjective: CAPD CLINIC Patient ID: Seema Oneill is a 44 y.o. male. HPI Comments: Seema asked to be seen for lower pelvic, suprapubic pain, only with filling a nd draining that he states started after a recent colonoscopy on 11/08/15. Apparently, the colonoscopy was negative. He has no temp. and the fluid is not cloudy. He is very concerne d that the catheter may may have migrated. 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. He also has HTN, hy pothyroidism, anemia 2' to CKD, Crohn's which is in remission on azathioprine/Humira. MEDS: Outpatient Prescriptions Marked as Taking for the 11/12/15 encounter (Documentation) with Hubert Drake, DO Medication [...] the peritoneum 3 times daily. for CCPD. CAPD: 2000cc exchanges, 1.5% Dianeal, 3 exchange /day. Review of Systems Objective: BP 132/84 mmHg | Temp(Src) 36 C (96.8 F) | Wt 91.9 kg (202 lb 9.6 oz) Physical Exam Heart: Regular rate and rhythm with no S3, S4, murmur or rub. Lungs: CTA bilaterally. No rales or wheezes. Abdomen: Soft, nontender, NABS, no guarding, exit site at LLQ is clear and dry. Extremities: no clubbing, cyanosis, edema. (+) old ORIF, multiple with well healed incision s at right hand and wrist. Assessment: 1. ESRD 2' to interstitial nephritis--now with pelvic pain with filling. Doubt peritoniti s, at this point. He denies being constipated or , having an acute flair of Crohn's . He w ill try tidal CCPD, and see if this helps. Also, will have him dwell with 1 exchange with 7 .5 cc of 1% xylocaine in 2000cc of a 1.5% Dianeal bag. He states that if he cannot get out o f pain, he does not wish to pursue any more CCPD. 2. Hypertension--stable. 3. Anemia 2' to CKD--not requiring BENY Rx yet. 4. CKD Mineral Bone Disease-- stable. 5. Nutrition--his appetite is improving. 6. Transplanation-- I reviewed with Seema the risk, alternatives, benefits, of this. He a ppears to be a very viable candidate. 7. Crohn's --in remission , on recent colonoscopy. Plan: 1. I had a lengthy discussion with Seema that his filling and draining pain will likely ge t better with time. 2. In the meantime, will give him 1 bag of 1.5% Dianeal + 1% xylocaine, as above, to dwell till HS. 3. He will do "tidal" CCPD, to have some fluid for a buffer , between exchanges. 4. He will call the CAPD RN, Christina Pearce RN, in 48-72 hour to inform us how his symptom s are going. 5. He could even lower volume exchanges, if the above is not fruitful. 6. He will follow up with Dr. Martinez in on one month , with lab. : [facility] Bj Randall MD, documented in thi s encounter Plan of [...] | | | | | [place] [address] | | | | | | [phone] | | | | | | | | +--------+---------+ + + + documented as of this encounter Visit Diagnoses + + | Diagnosis | + + | End stage renal disease (HCC) - Primary End stage renal disease | + + | Essential hypertension, benign | + + | Lower abdominal pain Abdominal pain, other specified site | + + documented in this encounter
--- OUTSIDE RECORDS SUMMARY | ~2019-12-22 | XMS | Encounter Summary ---
Demographics + + + | Address | [address] | | | [place] [address] | + + + | Home Phone | | + + + | Preferred Language | Unknown | + + + | Marital Status | | + + + | Confucianist Affiliation | 1041 | + + + [...] [place], [place] | | | | | [address] | | + + + + + | Misty Boateng | ECON | [address] | | | | | [place], [place] | | | | | [address] | | + + + + + Care Team Providers + +------+ + | Care Vice President Global Advertising Sales Name | Role | Phone | + [...] | NEPHROLOGY [address] | [address] | | | | | [address] | [address] [place] | | | | | [place], [place] | [place] [address] | | | | | [address] | [phone] | | | | | [phone] | | | +--------+ + + + [...] | | | | | [place] [address] | | | | | | [phone] | | | | | | | [...] Microscopic (01/22/2018) + + + + + + | Component | Value | Ref Range | Performed | Pathologist | | | | | At | Signature | + + + + + + | WBC UA | 2 | /HPF | | | + + [...] Ratio (01/22/2018) + + + + + + | Component | Value | Ref Range | Performed | Pathologist | | | | | At | Signature | + + + + + + | Protein/Cre | 0.270 (A) | 0.2 | | | | atinine | | | | | | Ratio, | | | | | | External | | | | | + + + + + + + + | Specimen | + + | | + + External Lab: PTH, Intact (01/22/2018) + + + + + + | Component | Value | Ref Range | Performed | Pathologist | | | | | At | Signature | + + + + + + | PTH Intact, | 124.2 (A) | 12 - 88 | | | | External | | | | | + + + + + + + + | Specimen | + + | | + + External Lab: BUN (01/22/2018) + +--------+ + + + | Component [...] Lab: Glucose (01/22/2018) + +-------+ + + + | Component | Value | Ref Range | Performed | Pathologist | | | | | At | Signature | + +-------+ + + + | Glucose, | 75 | 70 - 100 | EXTERNAL | [...] Lab: Albumin (01/22/2018) + +-------+ + + + | Component [...] Lab: Phosphorus (01/22/2018) + +-------+ + + + | Component [...] Lab: Calcium (01/22/2018) + +-------+ + + + | Component [...] Carbon Dioxide (01/22/2018) + +-------+ + + + | Component [...] Lab: Chloride (01/22/2018) + +-------+ + + + | Component [...] Lab: Potassium (01/22/2018) + +-------+ + + + | Component [...] Lab: Sodium (01/22/2018) + +-------+ + + + | Component | Value | Ref Range | Performed | Pathologist | | | | | At | Signature | + +-------+ + + + | Sodium, | 141 | 135 - 145 | EXTERNAL | [...] D, 25-Hydroxy (01/22/2018) + +--------+ + + + | Component | Value | Ref Range | Performed | Pathologist | | | | | At | Signature | + +--------+ + + + | Vitamin D, | 28 [...] Urinalysis (01/22/2018) + + + + + + [...] + + + | UA Specific | 1.018 | | EXTERNAL | | | [place], | | | LAB | | | [...] CBC (01/22/2018) + + + + + + | Component | Value | Ref Range | Performed | Pathologist | | | | | At | Signature | + + + + + + | WBC, | 4.2 | 4 - 11 | EXTERNAL | | | External | | | LAB | | + + + + + + | HGB, | 13 | 12 - 16 | EXTERNAL | | | External | | | LAB | | + + + + + + | HCT, | 37.4 | 35 - 45 | EXTERNAL | | | External | | | LAB | | + + + + + + | PLT, | 191 | 140 - 440 | EXTERNAL | | | External | | | LAB | | + + + + + + | RBC, | 3.89 (A) | 4 - 6 | EXTERNAL | | | External | | | LAB | | + + + + + + | MCV, | 96 | 80 - 100 | EXTERNAL | | | External | | | LAB | | + + + + + + | RDW, | 14.8 | 12 - 16 | EXTERNAL | [...] Lab: eGFR (01/22/2018) + +--------+ + + + | Component [...] Creatinine (01/22/2018) + + + + + + | Component | Value | Ref Range | Performed | Pathologist | | | | | At | Signature | + + + + + + | Creatinine, | 3.06 (A) | 0.6 - 1.3 [...]
--- OUTSIDE RECORDS SUMMARY | ~2019-12-22 | XMS | Encounter Summary ---
Demographics + + + | Address | [address] | | | [place] [address] | + + + | Home Phone [...] [place], [place] | | | | | [address] | | + + + + + | Misty Boateng | ECON | [address] | | | | | [place] | | | | | [address] | | + + + + + Care Team Providers + +------+ + | Care General Assignment Reporter Name | Role | Phone | + [...] | | | | | | | Chronic | | | | | | | kidney | | | | | | | disease, | | | | | | | stage 4 | | | | | | | (severe) | | | | | | | (HCC) | | | | | | | Essential | | | | | | | (primary) | | | | | | | hypertension | | | | | | | CROHNS | | | | | | | DEPRESSION | | | | | | | PANIC | | | | | | | DISORDER | | | | | | | Procedures | | | | | | | [place] | | | | | | | COLONOSCOPY | | | | | | | FLX DX | | | | | | | W/COLLJ SPEC | | | | | | | WHEN PFRMD | | | | | | | [place] | | | | | | | COLONOSCOPY | | | | | | | W/BIOPSY | | | | | | | SINGLE/MULTI | | | | | | | PLE TN | | | | | | | COLSC FLX | | | | | | | W/RMVL OF | | | | | | | TUMOR POLYP | | | | | | | LESION SNARE | | | | | | | TQ TN | | | | | | | ANESTHESIA | | | | | | | LOWER INTST | | | | | | | ENDOSCOPIC | | | | | | | PX SCR COLSC | | | | | | | | | | | | | | COLONOSCOPY | | | +--------+--------+ + + + + Encounter Details +--------+ + + + + | Date | Type | Department | Care Team | Description | +--------+ + + + + | 11/10/ | Hospital | [facility] | Pan Jhaveri MD | | | 2019 | Encounter | MED CTR MP INTRA OP | [address] [facility] | | | | | [address] | [place], [place] | | | | | [place] | [address] | | | | | [address] | [phone] | | | | | [phone] | | | +--------+ + + + [...] + + + | Blood Pressure | 130/88 | 11/10/2018 3:30 PM | | | | | PDT | | + + + + + | Pulse | 56 | 11/10/2018 3:30 PM | | | [...] + | Oxygen Saturation | 100% | 11/10/2018 3:30 PM | | | | | PDT | | + + + + + | Inhaled Oxygen | - | - | | | Concentration | | | | + + + + + | Weight | 84.3 kg (185 lb 13.6 | 11/10/2018 1:04 PM | | | | oz) | PDT | | + + + + + | Height | 182.9 cm (6') | 11/10/2018 1:04 PM | | | | | PDT | | + + + + + | Body Mass Index | 25.21 | 11/10/2018 1:04 PM | | | [...] mcg by mouth | | 0 | / | | | (SYNTHROID) 50 mcg | [...] +---------+ + + | carvedilol (COREG) | take 1 tablet by | 60 | 11 | 10/12/19 | | | 6.25 mg tablet | mouth twice a day | tablet | | 19 | 0 | + + + +---------+ + + | DULoxetine | Take 30 mg by mouth | | 0 | 08/11/19 | | | (CYMBALTA) [address] | Daily. | | | 19 | 9 | | capsule | | | | | | [...] | | | | | [place] [address] | | | | | | [phone] | | | | | | | | +--------+---------+ + + + documented as of this encounter Procedures + +--------+ + + + | Procedure Name | Priori | Date/Time | Associated Diagnosis | Comments | | | ty | | | | + +--------+ + + + | COLONOSCOPY | | 11/10/2018 | CROHNS DEPRESSION | | | | | 2:43 PM | PANIC DISORDER | | | | | PDT | | | + +--------+ + + + | SURGICAL PATHOLOGY | Routin | 11/10/2018 | | Results for this | | EXAM | e | 12:00 AM | | procedure are in the | | | | PDT | | results section. | + +--------+ + + + documented in this encounter Results Surgical Pathology Exam (11/10/2018 12:00 AM PDT) + + | Specimen | + + | | + + + + + | Narrative | Performed At | + + + | SPECIMEN(S): A SMALL BOWEL BIOPSY SPECIMEN(S): B RANDOM COLON | [facility] | | BIOPSY SPECIMEN SOURCE: A. SMALL BOWEL BIOPSY B. RANDOM COLON | [facility] | | BIOPSY CLINICAL HISTORY: Rule out Crohn's. MICROSCOPIC | | | DESCRIPTION: Histologic sections of all submitted blocks are examined | | | by light microscopy. These findings, together with the gross | | | examination, support the pathologic diagnosis. FINAL PATHOLOGIC | | | DIAGNOSIS: A. Terminal ileum, biopsy: - Unremarkable small bowel | | | mucosa. - Negative for acute, chronic and microscopic enteritis. | | | - No granulomas identified. B. Random colon, biopsy: - | | | Unremarkable colonic mucosa. - Negative for acute, chronic and | | | microscopic colitis. [facility]ab:C2NR GROSS DESCRIPTION: A. The | | | specimen, received in formalin, labeled "Oneill, A," further designated | | | "TI bx," consists of four romo-leger tissues, averaging 0.2 cm, | | | submitted in (A1). B. The specimen, received in formalin, | | | labeled "Oneill, B," further designated "random colon bx," consists of | | | multiple romo tissue fragments averaging 0.2 cm, submitted in (B1). | | | tn:TONG:sarah PERFORMING LABORATORY: The technical and professional | | | components were performed by [facility], [address] [place] [address] | | | [place] [address] (Machinist Mate: Paulie Krishnamurthy, | | | D.OLos; [facility]#: [id number]). Diagnostician: Honey Zavala MD | | | Pathologist Electronically Signed 11/11/2018 | | + + + + +---------+ + + | Performing | Address | City/State/Zipcode | Phone Number | | Organization | | | | + +---------+ + + | [facility] | | | | | [facility] | | | | + +---------+ + + documented in this encounter Visit Diagnoses Not on filedocumented in this encounter Administered Medications + +--------+---------+------+------+------+ | Medication Order | MAR | Action | Dose | Rate | Site | | | Action | Date | | | | + +--------+---------+------+------+------+ + +---+ | lactated ringers (LR) infusion | | | at 100 mL/hr, Intravenous, | | | CONTINUOUS, Starting 11/10/18 | | | at 1330, Pre-op | | + +---+ | | | + +---+ documented in this encounter
--- OUTSIDE RECORDS SUMMARY | ~2019-12-22 | XMS | Encounter Summary ---
Demographics + + + | Address | [address] | | | [place] [address] | + + + | Home Phone | | + + + | Preferred Language | Unknown | + + + | Marital Status | | + + + | Uatsdin Affiliation | 1041 | + + + | Race | Unknown | + + + | Ethnic Group | Unknown | + + + Author + + + | Author | [facility] | | | and [place] | + + + | Organization | [facility] | | | and [place] | + + + | Address | Unknown | + + + | Phone | Unavailable | + + + Support + + + + + | Name | Relationship | Address | Phone | + + + + + | Ryan Oneill | ECON | [place], [place] | | | | | [address] | | + + + + + | Misty Boateng | ECON | [address] | | | | | [place], [place] | | | | | [address] | | + + + + + Care Team Providers + +------+ + | Care Deckhand Sponge Boat Name | Role | Phone | + +------+ + PCP | Unavailable | + +------+ + Encounter Details +--------+ + + + + | Date | Type | Department | Care Team | Description | +--------+ + + + + | 06/11/ | Orders Only | [facility] | Christine Martinez W, | | | 2014 | | NEPHROLOGY [address] | [address] | | | | | [address] | [address] [place] | | | | | [place], [place] | [place] [address] | | | | | [address] | [phone] | | | | | [phone] | | | +--------+ + + + [...] | | | | | [place] [address] | | | | | | [phone] | | | | | | | | +--------+---------+ + + + documented as of this encounter Visit Diagnoses Not on filedocumented in this encounter"
--- OUTSIDE RECORDS SUMMARY | ~2019-12-22 | XMS | Encounter Summary ---
Demographics + + + | Address | [address] [place] [address] | | | [place] [address] | + + + | Home Phone | | + + + | Preferred Language | Unknown | + + + | Marital Status | | + + + | Amish Affiliation | CHR | + + + | Race | White | + + + | Ethnic Group | Not or | + + + Author + + + | Organization | Unknown | + + + | Address | Unknown | + + + | Phone | Unavailable | + + + Support + + +---------+ + | Name | Relationship | Address | Phone | + + +---------+ + | Misty Oneill | JOSE [place]O | Unknown | | + + +---------+ + Care Team Providers + +------+ + | Care Online Project Manager Name | Role | Phone | + +------+ + | Jt Perkins MD PCP | | + +------+ + Encounter Details +--------+--------+ + + + | Date | Type | Department | Care Team | Description | +--------+--------+ + + + | 05/18/ | Travel | | | | | 2020 | | | | | +--------+--------+ + + + Social History + + [...]
--- OUTSIDE RECORDS SUMMARY | ~2019-12-22 | XMS | Encounter Summary ---
Demographics + + + | Address | [address] | | | [place] [address] | + + + | Home Phone | | + + + | Preferred Language | Unknown | + + + | Marital Status | | + + + | Taoist Affiliation | 1041 | + + + [...] [place], [place] | | | | | [address] | | + + + + + | Misty Boateng | ECON | [address] | | | | | [place], [place] | | | | | [address] | | + + + + + Care Team Providers + +------+ + | Care Charge Rn Name | Role | Phone | + +------+ + PCP | Unavailable | + +------+ + Encounter Details +--------+ + + + + | Date | Type | Department | Care Team | Description | +--------+ + + + + | 07/20/ | Hospital | [facility] | Conversion | Diagnosis unknown | | 2017 | Encounter | CONVERSION [address] | Transaction, | | | | | [address] | Provider Unknown | | | | | [place], [place] | [phone] | | | | | [address] | (Fax) | | | | | [phone] | | | +--------+ + + + [...] | | | | | | [place] [address] | | | | | | [phone] | | | | | | | [...]
--- OUTSIDE RECORDS SUMMARY | ~2019-12-22 | XMS | Encounter Summary ---
Demographics + + + | Address | [address] [place] [address] | | | [place] [address] | + + + | Home Phone | | + + + | Preferred Language | Unknown | + + + | Marital Status | | + + + | Orthodoxy Affiliation | CHR | + + + [...] Team Providers + +------+ + | Care Material Damage Adjuster Name | Role | Phone | + [...] | +--------+ + + + + | 06/28/ | Documentati | Clinical | Russ Garcia | Financial Review | | 2014 | on | Transplant Services | [address] | | | | | [address] | Kait Barrios [place], | | | | | Kait Barrios [place], | [place] [address] | | | | | [place] [address] | | | | | | [phone] | | | +--------+ + + + [...]
--- OUTSIDE RECORDS SUMMARY | ~2019-12-22 | XMS | Encounter Summary ---
Demographics + + + | Address | [address] | | | [place] [address] | + + + | Home Phone [...] [place], [place] | | | | | [address] | | + + + + + | Misty Boateng | ECON | [address] | | | | | [place], [place] | | | | | [address] | | + + + + + Care Team Providers + +------+ + | Care Instructor Of Education Name | Role | Phone | + [...] | NEPHROLOGY [address] | [address] | nephritis chronic | | | | [address] | [address] [place] | (Primary Dx) | | | | [place] | [place] [address] | | | | | [address] | [phone] | | | | | [phone] | | | +--------+ + + + [...] | | | | | [place] [address] | | | | | | [phone] | | | | | | | | +--------+---------+ + + + documented as of this encounter Visit Diagnoses + + | Diagnosis | + + | 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
--- OUTSIDE RECORDS SUMMARY | ~2019-12-22 | XMS | Encounter Summary ---
Demographics + + + | Address | [address] | | | [place] [address] | + + + | Home Phone | | + + + | Preferred Language | Unknown | + + + | Marital Status | | + + + | Islam Affiliation | 1041 | + + + | Race | Unknown | + + + | Ethnic Group | Unknown | + + + Author + + + | Author | [facility] | | | and [place] | + + + | Organization | [facility] | | | and [place] | + + + | Address | Unknown | + + + | Phone | Unavailable | + + + Support + + + + + | Name | Relationship | Address | Phone | + + + + + | Ryan Oneill | ECON | [place], [place] | | | | | [address] | | + + + + + | Misty Boateng | ECON | [address] | | | | | [place], [place] | | | | | [address] | | + + + + + Care Team Providers + +------+ + | Care Water Treatment Specialist Name | Role | Phone | + +------+ + PCP | Unavailable | + +------+ + Encounter Details +--------+ + + + + | Date | Type | Department | Care Team | Description | +--------+ + + + + | 06/28/ | Orders Only | [facility] | Christine Martinez W, | Interstitial | | 2015 | | NEPHROLOGY [address] | MD [address] | nephritis chronic | | | | [address] | [address] [place] | (Primary Dx) | | | | [place] | [place] [address] | | | | | [address] | [phone] | | | | | [phone] | | | +--------+ + + + [...] | | | | | [place] [address] | | | | | | [phone] | | | | | | | | +--------+---------+ + + + documented as of this encounter Visit Diagnoses + + | Diagnosis | + + | 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
--- OUTSIDE RECORDS SUMMARY | ~2019-12-22 | XMS | Encounter Summary ---
Demographics + + + | Address | [address] | | | [place] [address] | + + + | Home Phone | | + + + | Preferred Language | Unknown | + + + | Marital Status | | + + + | Confucianism Affiliation | 1041 | + + + [...] [place], [place] | | | | | [address] | | + + + + + | Misty Boateng | ECON | [address] | | | | | [place], [place] | | | | | [address] | | + + + + + Care Team Providers + +------+ + | Care Pulmonary Nurse Practitioner Name | Role | Phone | + [...] NEPHROLOGY [address] | M, DO [address] | | | | | [address] | [place] | | | | | [place], [place] | [place], [place] | | | | | [address] | [address] | | | | | [phone] | | | +--------+ + + + [...] 09/05/2016 1:04 PM PSToutside record: Letter from [facility]. Sent to scan. documented in this encoun [...] | | | | | [place] [address] | | | | | | [phone] | | | | | | | | +--------+---------+ + + + documented as of this encounter Visit Diagnoses Not on filedocumented in this encounter"
--- OUTSIDE RECORDS SUMMARY | ~2019-12-22 | XMS | Encounter Summary ---
Demographics + + + | Address | [address] | | | [place] [address] | + + + | Home Phone | | + + + | Preferred Language | Unknown | + + + | Marital Status | | + + + | Voodoo Affiliation | 1041 | + + + | Race | Unknown | + + + | Ethnic Group | Unknown | + + + Author + + + | Author | [facility] | | | and [place] | + + + | Organization | [facility] | | | and [place] | + + + | Address | Unknown | + + + | Phone | Unavailable | + + + Support + + + + + | Name | Relationship | Address | Phone | + + + + + | Ryan Oneill | ECON | [place], [place] | | | | | [address] | | + + + + + | Misty Boateng | ECON | [address] | | | | | [place] | | | | | [address] | | + + + + + Care Team Providers + +------+ + | Care Deputy Coroner Name | Role | Phone | + +------+ + | Jt Perkins MD | PCP | | + +------+ + Encounter Details +--------+ + + + + | Date | Type | Department | Care Team | Description | +--------+ + + + + | 09/15/ | Orders Only | [facility] | Carlito Gaona MD | | | 2013 | | NEPHROLOGY [place] | [address] | | | | | [address] | [address] [place], [place] | | | | | [address] [facility] [place] | [address] | | | | | [address] | | | | | | [phone] | | | +--------+ + + + [...] | | | | | [place] [address] | | | | | | [phone] | | | | | | | [...] | | | LAB | | | [facility] | | | | | + +-------+ [...]
--- OUTSIDE RECORDS SUMMARY | ~2019-12-22 | XMS | Encounter Summary ---
Demographics + + + | Address | [address] | | | [place] [address] | + + + | Home Phone | | + + + | Preferred Language | Unknown | + + + | Marital Status | | + + + | Bahai Affiliation | 1041 | + + + | Race | Unknown | + + + | Ethnic Group | Unknown | + + + Author + + + | Author | [facility] | | | and [place] | + + + | Organization | [facility] | | | and [place] | + + + | Address | Unknown | + + + | Phone | Unavailable | + + + Support + + + + + | Name | Relationship | Address | Phone | + + + + + | Ryan Oneill | ECON | [place], [place] | | | | | [address] | | + + + + + | Misty Boateng | ECON | [address] | | | | | [place], [place] | | | | | [address] | | + + + + + Care Team Providers + +------+ + | Care Thermodynamics Teacher Name | Role | Phone | [...] | NEPHROLOGY [address] | [address] | | | | | [address] | [address] [place] | | | | | [place], [place] | [place] [address] | | | | | [address] | [phone] | | | | | [phone] | | | +--------+ + + + [...] record: Progress note from Thi judd RN, [facility] Transplant Support Desk. Dos; 03/31/17. Sent [...] | | | | | [place] [address] | | | | | | [phone] | | | | | | | | +--------+---------+ + + + documented as of this encounter Visit Diagnoses Not on filedocumented in this encounter"
--- OUTSIDE RECORDS SUMMARY | ~2019-12-22 | XMS | Encounter Summary ---
Demographics + + + | Address | [address] | | | [place] [address] | + + + | Home Phone [...] [place], [place] | | | | | [address] | | + + + + + | Misty Boateng | ECON | [address] | | | | | [place] | | | | | [address] | | + + + + + Care Team Providers + +------+ + | Care Mold Machine Operator Name | Role | Phone [...] | | | nephritis | [address] | | | | | Procedures | [place] | [address] [place] | | | | | [place] OFFICE | [address] | [place] | | | | | OUTPATIENT | [place], | [address] Phone: | | | | | VISIT 25 | [place] | [phone] | | | | | MINUTES | [address] | Fax: | | | | | | Phone: | [phone] | | | | | | [phone] | | | | | | | Fax: | | | | | | | [phone] | | +--------+--------+ + + + + Encounter Details +--------+---------+ + + + | Date | Type | Department | Care Team | Description | +--------+---------+ + + + | 09/17/ | Office | [facility] | Christine Martinez, | CKD (chronic kidney | | 2016 | Visit | NEPHROLOGY [address] | [address] | disease) stage 4, | | | | [address] | [address] [place] | GFR 15-29 ml/min | | | | [place], [place] | [place] [address] | (HCC) (Primary Dx); | | | | [address] | [phone] | Interstitial | | | | [phone] | | nephritis chronic; | | | | | | HTN (hypertension), | | | | | | benign; Crohn's | | | | | | disease with | | | | | | complication, | | | | | | unspecified | | | | | | gastrointestinal | | | | | | tract location (HCC) | +--------+---------+ + + + Social History [...] + + + | Blood Pressure | 112/90 | 09/18/2015 10:14 AM | | | | | PST | | + + + + + | Pulse | 72 | 09/18/2015 10:14 AM | | | | | PST | | + + + + + | Temperature | 36.3 C (97.3 F) | 09/18/2015 10:14 AM | | | | | PST | | + + + + + | Respiratory Rate | - | - | | + + + + + | Oxygen Saturation | 97% | 09/18/2015 10:14 AM | | | | | PST | | + + + + + | Inhaled Oxygen | - | - | | | Concentration | | | | + + + + + | Weight | 91.1 kg (200 lb 14.4 | 09/18/2015 10:14 AM | | | | oz) | PST | | + + + + + | Height | - | - | | + + + + + | Body Mass Index | 27.25 | 06/11/2015 12:00 PM | | | | | PST | | + + + + + documented in this encounter Progress Notes Christine Martinez MD - 09/18/2015 11:08 AM PSTFormatting of this note might be different f rom the original. Nephrology Follow-up Visit Visit date: 09/18/2015 Primary care provider: Hai Holman Follow-up type: [...] mg QDAY on 06/11/15 for more systemic therapy; then tapered off. Pt is on Humira for Crohn's disease. Since last visit, pt developed worsening blood pressure and headaches. Pt was started on C arvedilol 12.5 mg BID, with improvement in BP readings. However, pt c/o fatigue, difficulty with work due to lack of energy, headaches, and poor sleep. Pt is taking naps in late afte rnoon. Last night, pt had chills, fever, and myalgia. Improved today, but still having nguyễn e paresthesia (tingling over his body). Pt has a consultation with Dr. Randall (vascular surgery) at [facility] for placement of peritoneal dialysis catheter. Pt c/o on-going diarrhea related to Crohn's. Pt has f/u with Dr. Jhaveri next week. ROS: A 6-system review was performed, and was negative or noncontributory other than as sta kavita above. PMH: Patient Active Problem List Diagnosis Date Noted Anemia in CKD (chronic kidney disease) 08/08/2015 Crohn's disease (HCC) 05/29/2015 Polyarthritis 05/29/2015 HTN (hypertension), benign 05/23/2015 Fatigue 05/23/2015 Interstitial nephritis chronic 05/23/2015 Current Outpatient Prescriptions Medication Sig Adalimumab (HUMIRA SC) Inject 40 mg under the skin every 14 days. carvedilol (COREG) 12.5 mg tablet Take 1 tablet by mouth 2 times daily (with breakfast & dinner). cholecalciferoL (VITAMIN D-3) 1,000 units CAPS capsule Take 1,000 Units by mouth Daily. escitalopram (LEXAPRO) 20 mg tablet Take 20 mg by mouth Daily. pantoprazole (PROTONIX) 40 mg tablet Take 40 mg by mouth every morning (before breakfas t). No current facility-administered medications for this visit. Physical Exam: Filed Vitals: 09/18/15 1014 BP: 112/90 Pulse: 72 Temp: 36.3 C (97.3 F) TempSrc: Temporal Weight: 91.128 kg (200 lb 14.4 oz) SpO2: 97% Constitutional: Appears well-developed and [...] Reviewed labs with patient. Office Visit on 09/18/2015 Component Date Value Ref Range Status POC COLOR UA 09/18/2015 Yellow Yellow, Light Yellow Final POC CLARITY UA 09/18/2015 Clear Final POC GLUCOSE UA 09/18/2015 Negative Negative Final POC BILIRUBIN UA 09/18/2015 Negative Negative Final POC KETONES UA 09/18/2015 Negative Negative, 100 mg/dL Final POC SPECIFIC GRAVITY UA 09/18/2015 1.010 1.001 - 1.030 Final POC BLOOD UA 09/18/2015 Trace Intact* Negative Final POC PH UA 09/18/2015 5.0 5.0, 6.0, 7.0, 8.0, 5.5, 6.5, 7.5 Final POC PROTEIN UA 09/18/2015 30 mg/dL* Negative Final POC UROBILINOGEN UA 09/18/2015 0.2 0.2, Negative, Normal, < 0.2 mg/dL, 1 mg/dL, < 0.2 E.U./dl, 1.0 E.U./dL, 0.2 mg/dL Final POC NITRITE UA 09/18/2015 Negative Final POC LEUKOCYTE ESTERASE UA 09/18/2015 Negative Negative Final Abstract on 09/14/2015 Component Date Value Ref Range Status Creatinine, External 09/12/2015 3.86* 0.6 - 1.3 Final eGFR, External 09/12/2015 17* 60 Final Sodium, External 09/12/2015 135 135 - 145 Final Potassium, External 09/12/2015 4.3 3.5 - 5.1 Final Chloride, External 09/12/2015 102 95 - 112 Final Carbon Dioxide, External 09/12/2015 22 19 - 31 Final Calcium, External 09/12/2015 8.9 8.4 - 10.2 Final Phosphorus, External 09/12/2015 3.8 2.5 - 5 Final Albumin, External 09/12/2015 4.4 3.5 - 5 Final Glucose, External 09/12/2015 82 70 - 100 Final BUN, External 09/12/2015 35* 6 - 23 Final Abstract on 08/28/2015 Component Date Value Ref Range Status Creatinine, External 08/27/2015 3.79* 0.6 - 1.3 Final eGFR, External 08/27/2015 18* 60 Final Sodium, External 08/27/2015 139 135 - 145 Final Potassium, External 08/27/2015 3.9 3.5 - 5.1 Final Chloride, External 08/27/2015 105 100 - 110 Final Carbon Dioxide, External 08/27/2015 22 19 - 31 Corrected Calcium, External 08/27/2015 9.1 8.4 - 10.2 Final Phosphorus, External 08/27/2015 3.6 2.5 - 5 Final Albumin, External 08/27/2015 4.7 3.5 - 5 Final Glucose, External 08/27/2015 98 70 - 100 Final BUN, External 08/27/2015 37* 6 - 23 Final ASSESSMENT AND PLAN: ICD-10-CM ICD-9-CM 1. CKD (chronic kidney disease) stage 4, GFR 15-29 ml/min ([facility]) N18.4 585.4 Due to chronic interstitial nephritis. Pt is more symptomatic - tiredness. -Surgery consultation this week for peritoneal dialysis catheter placement -Pt was evaluated by [facility] Kidney Transplant team; awaiting final decision regarding listing -Will arrange for admission to [facility] PD clinic once catheter is placed. 2. Interstitial nephritis chronic N11.9 582.89 3. HTN (hypertension), benign I10 401.1 Clinic BP is improved since starting Carvedilol. Not edematous. -No change for now. -Monitor home BP reading daily. 4. Crohn's disease with complication, unspecified gastrointestinal tract location ([facility]) K50 .919 555.9 On Humira. Pt c/o chronic diarrhea. -Pt will f/u with Dr. Jhaveri next week. Cc: Hai Jhaveri, GI documented in this encounter Plan of Treatment +--------+---------+ + + + | Date | Type | Specialty | Care Team | Description | +--------+---------+ + + + | 03/20/ | Office | Nephrology | Christine Martinez, | | | 2019 | Visit | | MD [address] | | | | | | [address] [facility] | | | | | | [place] [address] | | | | | | [phone] | | | | | | | | +--------+---------+ + + + documented as of this encounter Procedures + +--------+ + + + | Procedure Name | Priori | Date/Time | Associated Diagnosis | Comments | | | ty | | | | + +--------+ + + + | POCT URINALYSIS, | Routin | 09/18/2015 | Interstitial | Results for this | | AUTO WITH CONF | e | 10:09 AM | nephritis chronic | procedure are in the | | | | PST | | results section. | + +--------+ + + + | LABS - EXTERNAL SCAN | | 09/12/2015 | | | | | | 12:00 AM | | | | | | PST | | | + +--------+ + + + documented in this encounter Results POCT Urinalysis Dipstick Automated (09/18/2015 10:09 AM PST) + + + + + [...] 1.001 - 1.030 | | | | [place], | | | | | | UA, [...] 15-29 ml/min ([facility]) - Primary Chronic kidney | | disease, Stage IV (severe) | + + | Interstitial nephritis chronic Other chronic glomerulonephritis with specified | | pathological lesion in kidney | + + | HTN (hypertension), benign Essential hypertension, benign | + + | Crohn's disease with complication, unspecified gastrointestinal tract location (HCC) | + + documented in this encounter"
--- OUTSIDE RECORDS SUMMARY | ~2019-12-22 | XMS | Encounter Summary ---
Demographics + + + | Address | [address] [place] [address] | | | [place] [address] | + + + | Home Phone [...] Team Providers + +------+ + | Care Tenter Name | Role | Phone | + [...] | | | | | [place], | [place], [place] | | | | | [place] [address] | [address] | | | | | [phone] | [phone] | | | | | | | [...] + + | Christine Tirado | NON [facility] | | [facility] [id number] [address] | | |[address] | | |[place] [address] | | + + + + +---------+ + + | Performing | Address | City/State/Zipcode | Phone Number | | Organization | | | | + +---------+ + + | NON [facility] | | | | + +---------+ + + documented in this encounter Visit Diagnoses Not on filedocumented in this encounter"
--- OUTSIDE RECORDS SUMMARY | ~2019-12-22 | XMS | Encounter Summary ---
Demographics + + + | Address | [address] [place] [address] | | | [place] [address] | + + + | Home Phone [...] Team Providers + +------+ + | Care Experimental Psychologist Name | Role | Phone | + +------+ + | Jt Perkins MD | PCP | | + +------+ + Encounter Details +--------+ + + + + | Date | Type | Department | Care Team | Description | +--------+ + + + + | 04/26/ | Telephone | Clinical | Margaret Holman, | | | 2019 | | Transplant Services | [facility] [address] | | | | | [address] | [address] | | | | | [place], | [place], [place] | | | | | [place] [address] | [address] | | | | | [phone] | [phone] | | +--------+ + + + + [...]
--- OUTSIDE RECORDS SUMMARY | ~2019-12-22 | XMS | Encounter Summary ---
Demographics + + + | Address | [address] [place] [address] | | | [place] [address] | + + + | Home Phone [...] + + + | Author | [facility] | + + + | Organization | [facility] | + + + | Address | Unknown | + + + | Phone | Unavailable | + + + Support + + +---------+ + | Name | Relationship | Address | Phone | + + +---------+ + | Misty Oneill | ECON | Unknown | | + + +---------+ + Care Team Providers + +------+ + | Care Paint Stock Clerk Name | Role | Phone | [...] | [address] | [place], | | | | | [place], | [place] [address] | | | | | [place] [address] | [phone] | | | | | | | [...] + + + | [facility] - | [address] [facility] [address] | [place] [address] | | | IMMUNOGENETICS/TRANS | [address] | | | | [facility] | | | | + + + + + documented in this encounter Visit Diagnoses Not on filedocumented in this encounter"
--- OUTSIDE RECORDS SUMMARY | ~2019-12-22 | XMS | Encounter Summary ---
Demographics + + + | Address | [address] [place] [address] | | | [place] [address] | + + + | Home Phone [...] Team Providers + +------+ + | Care Tool Planer Set Up Operator Name | Role | Phone | [...] | | | at [place] | [facility] | | | | | [address] | [place] [address] | | | | | [address] | | | | | | [place], [address] [place] [address] | | | | | | [place], [place] | | | | | | [address] | | | | | | [phone] | | | +--------+ + + + [...] | | | | PST | (moderate) ([facility]) | results section. | | | | [...] DEPT OF | [address] | [place], [place] | | | CARDIOLOGY | [address] | [address] | | + + + + + [...]
--- OUTSIDE RECORDS SUMMARY | ~2019-12-22 | XMS | Encounter Summary ---
Demographics + + + | Address | [address] | | | [place] [address] | + + + | Home Phone | | + + + | Preferred Language | Unknown | + + + | Marital Status | | + + + | Druze Affiliation | 1041 | + + + [...] [place], [place] | | | | | [address] | | + + + + + | Misty Boateng | ECON | [address] | | | | | [place] | | | | | [address] | | + + + + + Care Team Providers + +------+ + | Care Urology Physician Assistant Name | Role | Phone | [...] | | | | | | | [place] | | | | | | | COLONOSCOPY | | | | | | | FLX DX | | | | | | | W/COLLJ SPEC | | | | | | | WHEN PFRMD | | | | | | | [place] | | | | | | | COLONOSCOPY | | | | | | | W/BIOPSY | | | | | | | SINGLE/MULTI | | | | | | | PLE [place] | | | | | | | COLSC FLX | | | | | | | W/RMVL OF | | | | | | | TUMOR POLYP | | | | | | | LESION SNARE | | | | | | | TQ [facility] | | | | | | | [...] Description | +--------+---------+ + + + | 11/10/ | Surgery | [facility] | Pan Jhaveri MD | COLONOSCOPY | | 2019 | | MED CTR [facility] INTRA OP | [address] | | | | | [address] | [place], [place] | | | | | [place], [place] | [address] | | | | | [address] | [phone] | | | | | [phone] | | | +--------+---------+ + + + [...] | | | | | [place] [address] | | | | | | [phone] | | | | | | | [...] chronic and | | | microscopic colitis. [facility]:cab:[id number] GROSS DESCRIPTION: A. The | | | [...] | | | components were performed by [employer], [address] [facility] | | | [place] [address] (Brewer Helper: Paulie Krishnamurthy, | | | D.OLos; [facility]#: [id number]). Diagnostician: Honey Zavala MD | | | Pathologist Electronically Signed 11/11/2018 | | + + + + +---------+ + + | Performing | Address | City/State/[facility] | Phone Number | | Organization | [...]
--- OUTSIDE RECORDS SUMMARY | ~2019-12-22 | XMS | Clinical Summary ---
Demographics + + + | Address | [address] [place] [address] | | | [place] [address] | + + + | Home Phone | | + + + | Preferred Language | Unknown | + + + | Marital Status | | + + + | Orthodoxy Affiliation | CHR | + + + | Race | White | + + + | Ethnic Group | Not or | + + + Author + + + | Author | [facility] | + + [...] Team Providers + +------+ + | Care Visual Associate Name | Role | Phone | + +------+ + | Jt Perkins MD | PCP | | + +------+ + Source Comments RODRIGUEZ is fully live on both [facility] and [facility] Allergies + + + + + + | Active Allergy | Reactions | Severity | Noted | Comments | | | | | Date | | + + + + + + | Hydrocodone | Pruritus | Low | 09/05/19 | Pt reports itching | | | | | 16 | with most | | | | | | narcotics, no rash | | | | | | "just a lot of | | | | | | itching with | | | | | | narcotic" did not | | | | | | have this reaction | | | | | | with morphine or | | | | | | hydromorphone | + + + + + + | Oxycodone-Acetaminop | Pruritus | Low | 12/01/19 | | | hen | | | 20 | | + + + + + + | Tramadol | Pruritus | Low | 12/01/19 | | | | | | 20 | | + + + + + + Medications + + + +---------+------+------+-------+ | Medication | Sig | Dispensed | Refills | Star | End | Statu | | | | | | t | Date | s | | | | | | Date | | | + + + +---------+------+------+-------+ | HUMIRA PEN | Inject 40 mg under | | 0 | 11/2 | | Activ | | [facility] START | the skin (SUBC) | | | 4/20 | | e | | 40 mg/0.8 mL | every fourteen days. | | | 15 | | | | subcutaneous pen | | | | | | | | injector kit | | | | | | | + + + +---------+------+------+-------+ | carvedilol 12.5 mg | Take 12.5 mg by | | 0 | 02/1 | | Activ | | oral tablet | mouth two times | | | 0/20 | | e | | | daily. | | | 16 | | | + + + +---------+------+------+-------+ | pantoprazole 40 mg | Take 40 mg by mouth | | 0 | 02/0 | | Activ | | oral tablet,delayed | once daily. | | | 5/20 | | e | | release (DR/EC) | | | | 16 | | | + + + +---------+------+------+-------+ | escitalopram | Take 20 mg by mouth | | 0 | | | Activ | | oxalate 20 mg oral | once daily. | | | | | e | | tablet | | | | | | | + + + +---------+------+------+-------+ | predniSONE 10 mg | 40mg daily x 3 days, | 28 | 0 | 05/1 | | Activ | | oral tablet | 30mg daily x 3 | tablet | | /20 | | e | | | days, 20mg daily x 3 | | | 20 | | | | | days, 10mg daily x | | | | | | | | 1 day. | | | | | | + + + +---------+------+------+-------+ | famotidine 20 mg | Take 1 tablet by | 60 | 0 | 05/1 | | Activ | | oral tablet | mouth two times | tablet | | /20 | | e | | | daily. | | | 20 | | | + + + +---------+------+------+-------+ +---+ + | | Additional | | | InformationPatient | | | taking differently: | | | 20 mg oral TWICE | | | DAILY NEEDED, | | | Reason: Provider | | | Instructions, | | | Reported on | | | 12/01/2019 11:02 AM | +---+ + + + +--------+---+------+---+-------+ | amLODIPine 10 mg | Take 10 mg by mouth | | 0 | 02/0 | | Activ | | oral tablet | once daily. | | | 420 | | e | | | | | | 20 | | | + + +--------+---+------+---+-------+ | levothyroxine 50 | Take 50 mcg by mouth | | 0 | 05/1 | | Activ | | mcg oral tablet | before breakfast. | | | 820 | | e | | | | | | 11 | | | + + +--------+---+------+---+-------+ | acetaminophen 500 | Take 2 tablets by | | 0 | 05/1 | | Activ | | mg oral | mouth three times | | | 20 | | e | | tabletIndications: | daily. | | | 20 | | | | Parotid mass | | | | | | | + + +--------+---+------+---+-------+ | morphine 15 mg | Take 0.5-1 tablets | 5 | 0 | 05/1 | | Activ | | oral | by mouth every four | tablet | | 20 | | e | | tabletIndications: | hours as needed for | | | 20 | | | | Parotid mass | severe pain. | | | | | | + + +--------+---+------+---+-------+ Active Problems + + + | Problem | Noted Date | + + + | Left Parotid mass | 11/08/2019 | + + + | Anemia of chronic renal failure, stage 4 (severe) | 09/05/2015 | + + + | Venous malformation | 09/05/2015 | + + + + + | Overview: On outside CT | + + + + + | CD (Crohn's disease) | 05/29/2015 | + + + | [...] | Chronic kidney disease, stage IV (severe) | 03/02/2009 | + + + + + | Overview: 1. Progressive renal dysfxn2. Abnormal R renal CT3. | | Renal Bx: 11/25: Interstitial nephritis. (Kermit's, | | [place]) 4. Corticosteroids instituted: . Negative | | [...] + + | 12/13/ | MyChart | Kidney Transplant | | Transplant Patient | | 2020 | Encounter | | | Precautions | +--------+ + + + + | 12/12/ | Documentati | Otolaryngology | Tim Skinner MD | | | 2019 | on | | | | +--------+ + + + + | 12/07/ | MyChart | Otolaryngology | Tim Skinner MD | Good pathology | | 2019 | Encounter | | | result | +--------+ + + + + | 12/04/ | Surgery | Surgery | Tim Skinner MD | LEFT PAROTIDECTOMY | | 2019 | | | | | +--------+ + + + + | 12/04/ | Anesthesia | Surgery | Teri Motta MD | | | 2019 | Event | | [place], | | | | | | [address] | | +--------+ + + + + | 12/04/ | Hospital | | Tim Skinner MD | | | 2019 - | Encounter | | | | | | | | | | | 12/05/ | | | | | | 2019 | | | | | +--------+ + + + + | 12/04/ | Travel | | | | | 2020 | | | | | +--------+ + + + + | 12/04/ | Procedure | Surgery | | | | 2020 | Pass | | | | +--------+ + + + + | 12/03/ | MyChart | Otolaryngology | Tim Skinner MD | test results | | 2019 | Encounter | | | | +--------+ + + + + | 12/02/ | Clinical | | | Covid19 Screening | | 2020 | Support | | | | | | Staff | | | | +--------+ + + + + | 11/30/ | Telephone | Pre-operative | Delmy Waters, | Medication | | 2019 | | Medicine | PharmD | reconciliation | +--------+ + + + + | 11/29/ | Office | Pre-operative | [place], | Preoperative | | 2019 | Visit | Medicine | [address] JUST[address] | examination (Primary | | | | | | Dx); Crohn's | | | | | | disease with | | | | | | complication, | | | | | | unspecified | | | | | | gastrointestinal | | | | | | tract location | | | | | | (HCC); Chronic | | | | | | kidney disease, | | | | | | stage IV (severe) | | [...] | | | | disease), lumbar | +--------+ + + + + | 11/28/ | Orders Only | Pre-operative | Chantale Tam, | | | 2019 | | Medicine | RN | | +--------+ + + + + | 11/27/ | [employer] | Otolaryngology | Tim Skinner MD | Left Parotid mass | | 2019 | | | | (Primary Dx) | +--------+ + + + + | 11/24/ | Documentati | Otolaryngology | Tim Skinner MD | | | 2020 | on | | | | +--------+ + + + + | 11/22/ | MyChart | Otolaryngology | Tim Skinner MD | RE: biopsies were | | 2020 | Encounter | | | benign | +--------+ + + + + | 11/22/ | Documentati | Otolaryngology | Tim Skinner MD | | | 2019 | on | | | | +--------+ + + + + | 11/21/ | Documentati | Otolaryngology | Tim Skinner MD | | | 2019 | on | | | | +--------+ + + + + | 11/21/ | MyChart | Otolaryngology | Tim Skinner MD | pathology. | | 2019 | Encounter | | | | +--------+ + + + + | 11/17/ | MyChart | Otolaryngology | Tim Skinner MD | RE: pathology | | 2019 | Encounter | | | results | +--------+ + + + + | 11/14/ | Documentati | Otolaryngology | Tim Skinner MD | | | 2019 | on | | | | +--------+ + + + + | 11/13/ | Documentati | Otolaryngology | Tim Skinner MD | | | 2019 | on | | | | +--------+ + + + + | 11/08/ | Telephone | Otolaryngology | Adria Snow | | 2019 | | | LEANDRO Lao | | +--------+ + + + + | 11/07/ | Video/TeleH | Otolaryngology | Tim Skinner MD | Left Parotid mass | | 2019 | ealth-Sched | | | (Primary Dx) | | | uled | | | | +--------+ + + + + | 11/06/ | Abstract | Otolaryngology | Tim Skinner MD | | | 2019 | | | | | +--------+ + + + + | 10/16/ | Documentati | Kidney Transplant | Thi Aden, | KP Waitlist | | 2019 | on | | RN | | +--------+ + + + + [...] Comments | + + +------+ + | Cancer | Father | | no head and neck cancers | + + +------+ + | Hypertension [...] + + +------+ + | Cancer | Mother | | no head and neck cancers | + + +------+ + | Hypertension [...] | | | + + + + Last Filed Vital Signs [...] + + + + + | Pneumococcal | | 12/11/2015, 09/05/2015 | | | vaccination (3 of 3 | 1 | | | | - PPSV23) | | | | + + + + + | Influenza (Flu) | Completed | 03/15/2019, 03/18/2018, | | | vaccination | | 06/22/2013, Additional history | | | | | exists | | + + + + + [...] + + from Last 3 Months Results SURGICAL PATHOLOGY (12/05/2019 10:37 AM PDT) [...] Salomon, | | | | | | Nico/Staff PathologistMy | | | | | | [...] | SERVICES, | | | | (initials [place]) and | | [facility] | | | | medical record number | | [facility] + | | | | [id number]. Neck, Left | | HEALING | | [...] identified. | | | | | | Fence Laborer sections | | | | | | are submitted. Cassette | | | | | | Summary:A1-2, nodule 1, | | | | | | bisectedA3, nodule | | | | | | 2A4-5, quality audit representative | | | | | | [...] | | | | | determined by [facility] | | | | | | laboratories. [...] | + + + + + | [facility] | [address] | [place] [address] | | | PATHOLOGY | [address] | | | + + + + + | [facility] | [address] | [place] [address] | | | SERVICES, [facility] | | | | | HEALTH + HEALING | | | | + + + + + ETT (12/05/2019 9:12 AM PDT) + + [...] pre-op condition. | | + + + INTRAPROCEDURE IMAGING (12/05/2019 7:16 [...] + | | | + + + COVID-19 (12/03/2019 2:38 PM PDT) + + [...] | | its performance characteristics determined by [facility]. It | | | has not been [...] | + + + + + | [facility] | [address] | [place] [address] | | | [address] | [address] | | | + + + + + from Last 3 Months Insurance + +--------+ +--------+ + +------+ | Payer | Benefi | Subscriber | Effect | Phone | Address | Type | | | t Plan | ID | thad | | | | | | / | | Dates | | | | | | Group | | | | | | + +--------+ +--------+ + +------+ | [employer] | PACIFI | [phone] | 02/18/20 | [phone] | [address] | PPO | | | [place] | | [phone] | [address] | [address] | | sent | | [place] | | | | | | | | , [place] | | | | | | | | [address] | | + +--------+ +--------+ + +------+ + +--------+ +--------+ + + | Guarantor Name | Accoun | Relation to | Date | Phone | Billing Address | | | t Type | Patient | of | | | | | | | | | | + +--------+ +--------+ + + | Seema Oneill | Person | Self | [birth year] | | [address] | | | al/Fam | | 1970 | [phone] | [place], [place] | | | greg | | | 6 (Home) | [phone] | + +--------+ +--------+ + + | Seema Oneill | Specia | Self | [birth year]/ | | [address] | | | l | | 1970 | [phone] | [place], [place] | | | [place] | | | 6 (Home) | [address] | | | g | | | [phone] | | | | | | | 2 (Work) | | + +--------+ +--------+ + + Advance Directives + + + + + | Code Status | Date | Date | Comments | | | Activated | Inactivated | | + + + + + | Full Code | 12/05/2019 | 12/06/2019 | | | | 7:16 AM | 4:29 PM | | + + + + +
--- OUTSIDE RECORDS SUMMARY | ~2019-12-22 | XMS | Encounter Summary ---
Demographics + + + | Address | [address] | | | [place] [address] | + + + | Home Phone | | + + + | Preferred Language | Unknown | + + + | Marital Status | | + + + | Sabianist Affiliation | 1041 | + + + [...] [place], [place] | | | | | [address] | | + + + + + | Misty Boateng | ECON | [address] | | | | | [place], [place] | | | | | [address] | | + + + + + Care Team Providers + +------+ + | Care Specialist Wound Care Name | Role | Phone | + [...] NEPHROLOGY [address] | | | | | [address] | [address] [place] | | | | | [place], [place] | [place] [address] | | | | | [address] | [phone] | | | | | [phone] | | | +--------+ + + + [...] PSTManually faxed signed release of information to [facility]-Vitaliy Velasquez MD (fx: [phone]) on 07/06/15 requesting most recent progress note. [...] | | | | | | [place] [address] | | | | | | [phone] | | | | | | | | +--------+---------+ + + + documented as of this encounter Visit Diagnoses Not on filedocumented in this encounter"
--- OUTSIDE RECORDS SUMMARY | ~2019-12-22 | XMS | Encounter Summary ---
Demographics + + + | Address | [address] | | | [place] [address] | + + + | Home Phone | | + + + | Preferred Language | Unknown | + + + | Marital Status | | + + + | Yarsani Affiliation | 1041 | + + + | Race | Unknown | + + + | Ethnic Group | Unknown | + + + Author + + + | Author | [facility] | | | and [place] | + + + | Organization | [facility] | | | and [place] | + + + | Address | Unknown | + + + | Phone | Unavailable | + + + Support + + + + + | Name | Relationship | Address | Phone | + + + + + | Ryan Oneill | ECON | [place], [place] | | | | | [address] | | + + + + + | Misty Boateng | ECON | [address] | | | | | [place] | | | | | [address] | | + + + + + Care Team Providers + +------+ + | Care Acid Operator Name | Role | Phone | [...] | | | nephritis | [address] | | | | | Procedures | [place] | [address] [place] | | | | | NE OFFICE | [address] | [facility] [place] | | | | | OUTPATIENT | [place], | [address] Phone: | | | | | VIS[address] 25 | [place] | [phone] | | | | | MINUTES | [address] | Fax: | | | | | | Phone: | [phone] | | | | | | [phone] | | | | | | | Fax: | | | | | | | [phone] | | +--------+--------+ + + + + Encounter Details +--------+ + + + + | Date | Type | Department | Care Team | Description | +--------+ + + + + | 06/02/ | Off-Site | [facility] | Peace Drake | End stage renal | | 2016 | Visit | NEPHROLOGY [address] | M, DO [address] | disease (HCC) | | | | [address] | [place] | (Primary Dx) | | | | [place], [place] | [place], [place] | | | | | [address] | [address] | | | | | [phone] | | | +--------+ + + + [...] + | Blood Pressure | 118/72 | 06/02/2016 3:11 PM | | | | | PST | | + + + + + | Pulse | - | - | | + + + + + | Temperature | 36.6 C (97.8 F) | 06/02/2016 3:11 PM | | | | | PST [...] + + + + | Weight | 92.7 kg (204 lb 5.9 | 06/02/2016 3:11 PM | | | | oz) | PST | | + + + + + | Height | - | - | | + + + + + | Body Mass Index | 27.72 | 11/08/2015 10:00 AM | | | | | PDT | | + + + + + documented in this encounter Progress Notes Peace Drake DO - 06/02/2016 3:14 PM PST Subjective: [facility] Patient ID: Seema Oneill is a 45 y.o. male. 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 but states that it is becoming increasingly difficult to complete his shifts. He does sometimes have to delay exchanges for 24-48 hrs, due to out of town Investigations, he relates. He was recently diagnosed with 1' hypothyroidism, and started on levothyroxine, and additio alan, an SSRI, citalopram for depression. His appetite is good. He states very adamantly, that medical fci is not an option, at this point. He also has HTN, hypothyroidism, anemia secondary to CKD, Crohn's which has bee in [facility] on azathioprine/Humira. MEDS: Outpatient Prescriptions Marked as Taking for the 06/02/16 encounter (Off-Site Visit) with Peace Drake, DO Medication Sig Dispense Refill Adalimumab [...] tablet Take 40 mg by mouth Daily. [DISCONTINUED] escitalopram (LEXAPRO) 20 mg tablet Take 20 mg by mouth Daily. gentamicin 0.1% cream APPLY TO PD SITE DAILY 15 g 11 levothyroxine (SYNTHROID, LEVOTHROID) 75 MCG tablet Take 75 mcg by mouth every morning (before breakfast). pantoprazole (PROTONIX) 40 mg tablet Take 40 mg by mouth every morning (before breakfas t). CAPD: 2300cc exchanges, 1.5% Dianeal, 3 exchange /day. Allergies Allergen Reactions Lisinopril cough Review of Systems Objective: BP 118/72 mmHg | Temp(Src) 36.6 C (97.8 F) | Wt 92.7 kg (204 lb 5.9 oz) Physical Exam Heart: Regular rate and rhythm with no S3, S4, murmur or rub. Lungs: CTA bilaterally. No rales or wheezes. Abdomen: Soft, nontender, normoactive bowel sounds, no rebound, exit site at RLQ is edgar ar and dry. Extremities: no clubbing, cyanosis, edema. LAB: BUN 28, Cr 3.04, K+ 4.6, HCO3 26, Ca++ 9.1, PO4 2.8, PTH 163, Alb 4.3, Hb 13. 4, TSat. = 32 %, Ferritin 213, weeklyKT/V = 2.20. Assessment: 1. ESRD-- overall, he appears stable on the current Rx. His weekly KT/V appears stable. 2. Hypertension--good control from review of his home treatment data. 3. Anemia 2' to CKD-- He has not required EPO to date. His iron stores appear adequate. 4. CKD- Mineral Bone Disease--he does very good with his diet, and phosphorus control. Hi s PTH has remained stable with use of phosphorus binders alone. 5. Nutrition--serum albumin is stable. His appetite is very good. 6. 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 I highly recommend him, without any reservation. 7. Crohn's --in remission. Plan: 1. Overall, he appears stable on his current Rx. His biggest challenge is to keep up with all of his daily exchanges while he is working full-time. Unfortunately, in terms of his l taran-term fci he is near the end of his long enforcement pension and medical retiremen t is not an option for him. 2. I had a yael discussion about potential living related or unrelated donors with Seema. 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 He appears to have excellent self-discip line. 3. Hopefully with L-thyroxine will give him slightly more energy. 4. Will recheck him in one month with lab. : [place] Polo Lorenzo MD, [facility], [facility] documented in thi s encounter Plan of [...] | | | | | [place] [address] | | | | | | [phone] | | | | | | | | +--------+---------+ + + + documented as of this encounter Visit Diagnoses + + | Diagnosis | + + | End stage renal disease (HCC) - Primary End stage renal disease | + + documented in this encounter"
--- OUTSIDE RECORDS SUMMARY | ~2019-12-22 | XMS | Encounter Summary ---
Demographics + + + | Address | [address] | | | [place] [address] | + + + | Home Phone [...] [place], [place] | | | | | [address] | | + + + + + | Misty Boateng | ECON | [address] | | | | | [place] | | | | | [address] | | + + + + + Care Team Providers + +------+ + | Care Delinquency Prevention Officer Name | Role | Phone | [...] | renal | MD Bj | [address] | | | | | disease | [address] | [address] | | | | | ([facility]LY [facility]) | [place] | [address] [place] | | | | | Procedures | [address] | [place] | | | | | [place] OFFICE | [place], | [address] Phone: | | | | | OUTPATIENT | [place] | [phone] | | | | | VISIT 25 | [address] | Fax: | | | | | MINUTES | Phone: | [phone] | | | | | | [phone] | | | | | | | Fax: | | | | | | | [phone] | | +--------+--------+ + + + + Encounter Details +--------+ + + + + | Date | Type | Department | Care Team | Description | +--------+ + + + + | 09/01/ | Off-Site | [facility] [place] | Timboluis felipe Peace | End stage renal | | 2017 | Visit | NEPHROLOGY [address] | M, DO [address] | disease (HCC) | | | | [address] | [place], [address] | (Primary Dx) | | | | [place], [place] | [place], [place] | | | | | [address] | [address] | | | | | [phone] | | | +--------+ + + + [...] + + + | Blood Pressure | 118/78 | 09/01/2016 2:53 PM | | | | | PST | | + + + + + | Pulse | - | - | | + + + + + | Temperature | 37 C (98.6 F) | 09/01/2016 2:53 PM | | | | | PST [...] + + + + | Weight | 87.9 kg (193 lb 12.6 | 09/01/2016 2:53 PM | | | | oz) | PST | | + + + + + | Height | - | - | | + + + + + | Body Mass Index | 26.28 | 11/08/2015 10:00 AM | | | | | PDT | | + + + + + documented in this encounter Progress Notes Peace Drake DO - 09/01/2016 3:15 PM PST Subjective: CAPD CLINIC Patient ID: Seema Oneill is a 45 y.o. male. 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 He is very pleasant, but adamant that he does not necessarily need outpatient CCPD and wou ld like a trial off of his exchanges. He feels that it is not indicated, and would like to have informed consent to the former. I did discuss at length with Laurita that this is certainly his right, but the current Ccr is being supported by what CAPD exchanges he does do. His second complaint is fatigue, and I reviewed that this could potentially worsen, if he does become more azotemic. However, he i s again adamant that he doesn't need dialysis at this time. He states that he would like to ensure that he does not lose any time on the wait list, he may have accrued for a renal allograft. He also has HTN, hypothyroidism, anemia secondary to CKD, Crohn's which has bee in [facility] on azathioprine/Humira. MEDS: Outpatient Prescriptions Marked as Taking for the 09/01/16 encounter (Off-Site Visit) with Fern Drake, DO Medication Sig Dispense Refill Adalimumab (HUMIRA SC) Inject 40 mg under the skin every 14 days. azaTHIOprine (IMURAN) 50 mg tablet Take 100 mg by mouth Daily. b complex-vitamin c-folic acid (NEPHRO-ANDI) tablet Take 1 tablet by mouth Daily. 90 ta blet 4 carvedilol (COREG) 6.25 mg tablet Take 1 tablet by mouth 2 times daily. 60 tablet 11 cholestyramine light (QUESTRAN) 4 g packet Take 4 g by mouth nightly as needed. citalopram (CELEXA) 40 mg tablet Take 40 [...] DEXTROSE, DIANEAL ULTRAB AG,) 344 MOSM/L SOLN See Admin Instructions. 2000 mL x 2 exchanges, last fill 1000 mL CAPD: 2300cc exchanges, 1.5% Dianeal, 3 exchange /day. Allergies Allergen Reactions Lisinopril cough Review of Systems Objective: BP 118/78 mmHg | Temp(Src) 37 C (98.6 F) | Wt 87.9 kg (193 lb 12.6 oz) Physical Exam Heart: Regular rate and rhythm with no S3, S4, murmur or rub. Lungs: CTA bilaterally. No rales or wheezes. Abdomen: Soft, nontender, normoactive bowel sounds, exit site at RLQ is clear and dry. Extremities: no clubbing, cyanosis, edema. LAB: BUN 23, Cr 2.93, K+ 4.3, HCO3 26, Ca++ 9.0, PO4 3.2, Alb 4.2, , Hb 12.7, TSat. = 31 %, Ferritin 204, weeklyKT/V = 2.36, [place] Ccr = 30 ml/min. Assessment: 1. ESRD-- given the above discussion, will give Mr. Oneill the opportunity and see if he can maintain his GFR off of CCPD. 2. Hypertension--good control from review of his [...] reservation. 7. Crohn's --in remission. Plan: 1. He will stop all exchanges , flush the catheter with an in and out exchange once per mo nt. He will be seen in one month at the [facility] with Dr. Martinez with a CBC, CMP, P04, PTH, and 24-hour urine collection for CrCl, and Urea clearance, one week prior to that. 2. He will continue his same meds. Currently , he is not on EPO, so that is not a concern. 3. He will call our Office if he develops worsening edema, nausea, hiccups, or anorexia in the interim. 4. If he does need to return to CAPD , he is having frequent drain alarms, nightly and may need to have his Tenckhoff repositioned, as he states that he has to sit up every drain cyc le" nightly, which equally could contribute to his fatigue. I told him that it would be mali al not to do any surgical procedures until we can assess what his [place] Ccr is in 30 days, to avoid that clouding the issue. He appears to agree. : [facility] Bj Lorenzo MD, [facility], [facility] Travis Randall MD, documented in th is encounter Plan of Treatment +--------+---------+ + + + | Date | Type | Specialty | Care Team | Description | +--------+---------+ + + + | 03/20/ | Office | Nephrology | Christine Martinez, | | | 2019 | Visit | | [address] | | | | | | [address] [place] | | | | | | [place] [address] | | | | | | [phone] | | | | | | | | +--------+---------+ + + + documented as of this encounter Procedures + +--------+ + + + | Procedure Name | Priori | Date/Time | Associated Diagnosis | Comments | | | ty | | | | + +--------+ + + + | LABS - EXTERNAL SCAN | | 09/26/2016 | | Results for this | | | | 12:00 AM | | procedure are in the | | | | PST | | results section. | + +--------+ + + + | LABS - EXTERNAL SCAN | | 09/17/2016 | | Results for this | | | | 12:00 AM | | procedure are in the | | | | PST | | results section. | + +--------+ + + + documented in this encounter Results LABS - EXTERNAL SCAN (09/26/2016 12:00 AM PST) + + + | Narrative | Performed At | + + + | Ordered by an | | | unspecified provider. | | + + + LABS - EXTERNAL SCAN (09/17/2016 12:00 AM PST) + + + | Narrative | Performed At | + + + | Ordered by an | | | unspecified provider. | | + + + documented in this encounter Visit Diagnoses + + | Diagnosis | + + | End stage renal disease (HCC) - Primary End stage renal disease | + + documented in this encounter
--- OUTSIDE RECORDS SUMMARY | ~2019-12-22 | XMS | Encounter Summary ---
Demographics + + + | Address | [address] | | | [place] [address] | + + + | Home Phone | | + + + | Preferred Language | Unknown | + + + | Marital Status | | + + + | Mu-Ism Affiliation | 1041 | + + + | Race | Unknown | + + + | Ethnic Group | Unknown | + + + Author + + + | Author | [facility] | | | and [place] | + + + | Organization | [facility] | | | and [place] | + + + | Address | Unknown | + + + | Phone | Unavailable | + + + Support + + + + + | Name | Relationship | Address | Phone | + + + + + | Ryan Oneill | ECON | [place], [place] | | | | | [address] | | + + + + + | Misty Boateng | ECON | [address] | | | | | [place] | | | | | [address] | | + + + + + Care Team Providers + +------+ + | Care Chinese Herbalist Name | Role | Phone | + +------+ + | Jt Perkins MD | PCP | | + +------+ + Encounter Details +--------+ + + + + | Date | Type | Department | Care Team | Description | +--------+ + + + + | 08/11/ | Abstract | [facility] [place] | Christine Martinez W, | | | 2018 | | NEPHROLOGY [address] | [address] | | | | | [address] | [address] [place] | | | | | [place], [place] | [place] [address] | | | | | [address] | [phone] | | | | | [phone] | | | +--------+ + + + [...] 2019 | Visit | | [address] | | | | | | [address] [place] | | | | | | [place] [address] | | | | | | [phone] | | | | | | | | +--------+---------+ + + + documented as of this encounter Procedures + +--------+ + + + | Procedure Name | Priori | Date/Time | Associated Diagnosis | Comments | | | ty | | | | + +--------+ + + + | EXTERNAL LAB: ANIVAL | Routin | 08/11/2018 | | Results for this | | | e | | | procedure are in the | | | | | | results section. | + +--------+ + + + | EXTERNAL LAB: | Routin | 08/11/2018 | | Results for this | | GLUCOSE | e | | | procedure are in the | | | | | | results section. | + +--------+ + + + | EXTERNAL LAB: | Routin | 08/11/2018 | | Results for this | | ALBUMIN | e | | | procedure are in the | | | | | | results section. | + +--------+ + + + | EXTERNAL LAB: | Routin | 08/11/2018 | | Results for this | | PHOSPHORUS | e | | | procedure are in the | | | | | | results section. | + +--------+ + + + | EXTERNAL LAB: | Routin | 08/11/2018 | | Results for this | | CALCIUM | e | | | procedure are in the | | | | | | results section. | + +--------+ + + + | EXTERNAL LAB: CARBON | Routin | 08/11/2018 | | Results for this | | DIOXIDE | e | | | procedure are in the | | | | | | results section. | + +--------+ + + + | EXTERNAL LAB: | Routin | 08/11/2018 | | Results for this | | CHLORIDE | e | | | procedure are in the | | | | | | results section. | + +--------+ + + + | EXTERNAL LAB: | Routin | 08/11/2018 | | Results for this | | POTASSIUM | e | | | procedure are in the | | | | | | results section. | + +--------+ + + + | EXTERNAL LAB: SODIUM | Routin | 08/11/2018 | | Results for this | | | e | | | procedure are in the | | | | | | results section. | + +--------+ + + + | EXTERNAL LAB: | Routin | 08/11/2018 | | Results for this | | URINALYSIS | e | | | procedure are in the | | | | | | results section. | + +--------+ + + + | EXTERNAL LAB: | Routin | 08/11/2018 | | Results for this | | PROTEIN/CREATININE | e | | | procedure are in the | | RATIO | | | | results section. | + +--------+ + + + | EXTERNAL LAB: EGFR | Routin | 08/11/2018 | | Results for this | | | e | | | procedure are in the | | | | | | results section. | + +--------+ + + + | EXTERNAL LAB: | Routin | 08/11/2018 | | Results for this | | CREATININE | e | | | procedure are in the | | | | | | results section. | + +--------+ + + + | URINALYSIS WITH | Routin | 08/11/2018 | | Results for this | | MICROSCOPIC | e | | | procedure are in the | | | | | | results section. | + +--------+ + + + documented in this encounter Results Urinalysis With Microscopic (08/11/2018) + + + + + + | [...] | + + External Lab: Protein/Creatinine Ratio (08/11/2018) + + + + + + | Component | Value | Ref Range | Performed | Pathologist | | | | | At | Signature | + + + + + + | Protein/Cre | 0.290 (A) | 0.2 | | | | atinine | | | | | | Ratio, | | | | | | External | | | | | + + + + + + + + | Specimen | + + | | + + External Lab: BUN (08/11/2018) + +-------+ + + + | Component | Value | Ref Range | Performed | Pathologist | | | | | At | Signature | + +-------+ + + + | BUN, | 32 | | | | | External | | | | | + +-------+ + + + External Lab: Glucose (08/11/2018) + +-------+ + + + | Component | Value | Ref Range | Performed | Pathologist | | | | | At | Signature | + +-------+ + + + | Glucose, | 117 | | | | | External | | | | | + +-------+ + + + External Lab: Albumin (08/11/2018) + +-------+ + + + | Component | Value | Ref Range | Performed | Pathologist | | | | | At | Signature | + +-------+ + + + | Albumin, | 4.3 | | | | | External | | | | | + +-------+ + + + External Lab: Phosphorus (08/11/2018) + +-------+ + + + | Component | Value | Ref Range | Performed | Pathologist | | | | | At | Signature | + +-------+ + + + | Phosphorus, | 3.5 | | | | | External | | | | | + +-------+ + + + External Lab: Calcium (08/11/2018) + +-------+ + + + | Component | Value | Ref Range | Performed | Pathologist | | | | | At | Signature | + +-------+ + + + | Calcium, | 9.2 | | | | | External | | | | | + +-------+ + + + External Lab: Carbon Dioxide (08/11/2018) + +-------+ + + + | Component | Value | Ref Range | Performed | Pathologist | | | | | At | Signature | + +-------+ + + + | Carbon | 23 | | | | | Dioxide, | | | | | | External | | | | | + +-------+ + + + External Lab: Chloride (08/11/2018) + +-------+ + + + | Component | Value | Ref Range | Performed | Pathologist | | | | | At | Signature | + +-------+ + + + | Chloride, | 105 | | | | | External | | | | | + +-------+ + + + External Lab: Potassium (08/11/2018) + +-------+ + + + | Component | Value | Ref Range | Performed | Pathologist | | | | | At | Signature | + +-------+ + + + | Potassium, | 4.5 | | | | | External | | | | | + +-------+ + + + External Lab: Sodium (08/11/2018) + +-------+ + + + | Component | Value | Ref Range | Performed | Pathologist | | | | | At | Signature | + +-------+ + + + | Sodium, | 141 | | | | | External | | | | | + +-------+ + + + External Lab: Urinalysis (08/11/2018) + + + + + + | Component | Value | Ref Range | Performed | Pathologist | | | | | At | Signature | + + + + + + | UA Blood, | moderate | | | | | External | | | | | + + + + + + | UA Glucose, | normal | | | | | External | | | | | + + + + + + | UA Ketones, | negative | | | | | External | | | | | + + + + + + | UA Ph, | 5 | | | | | External | | | | | + + + + + + | UA | 30 | | | | | Proteins, | | | | | | External | | | | | + + + + + + | UA RBC, | 5 | | | | | External | | | | | + + + + + + | UA Specific | 1.017 | | | | | [place], | | | | | | External | | | | | + + + + + + | UA | negative | | | | | Leukocyte | | | | | | Esterase, | | | | | | External | | | | | + + + + + + External Lab: eGFR (08/11/2018) + +-------+ + + + | Component [...] Blood | + + External Lab: Creatinine (08/11/2018) + +-------+ + + + | Component | Value | Ref Range | Performed | Pathologist | | | | | At | Signature | + +-------+ + + + | Creatinine, | 2.96 | | | | | External | | | | | + +-------+ + + + + + | Specimen | + + | Blood | + + documented in this encounter Visit Diagnoses Not on filedocumented in this encounter"
--- OUTSIDE RECORDS SUMMARY | ~2019-12-22 | XMS | Encounter Summary ---
Demographics + + + | Address | [address] [place] [address] | | | [place] [address] | + + + | Home Phone [...] Team Providers + +------+ + | Care Piercing Artist Name | Role | Phone | + +------+ + | Hai Holman MD | PCP | | + +------+ + Reason for Visit + + + | Reason | Comments | + + + | Patient education | ED CLASS | + + + Encounter Details +--------+ + + + + | Date | Type | Department | Care Team | Description | +--------+ + + + + | 09/05/ | Documentati | Clinical | Galilea Chung RN | Patient education | | 2016 | on | Transplant Services | [address] | (ED CLASS) | | | | [address] | [place], | | | | | [place], | [place] | | | | | [place] | | | | | | [phone] | | | +--------+ + + + [...]
--- OUTSIDE RECORDS SUMMARY | ~2019-12-22 | XMS | Encounter Summary ---
Demographics + + + | Address | [address] | | | [place] [address] | + + + | Home Phone | | + + + | Preferred Language | Unknown | + + + | Marital Status | | + + + | Anglican Affiliation | 1041 | + + + | Race | Unknown | + + + | Ethnic Group | Unknown | + + + Author + + + | Author | [facility] | | | and [place] | + + + | Organization | [facility] | | | and [place] | + + + | Address | Unknown | + + + | Phone | Unavailable | + + + Support + + + + + | Name | Relationship | Address | Phone | + + + + + | Ryan Oneill | ECON | [place], [place] | | | | | [address] | | + + + + + | Misty Boateng | ECON | [address] | | | | | [place], [place] | | | | | [address] | | + + + + + Care Team Providers + +------+ + | Care Aquaculture Worker Name | Role | Phone | [...] | NEPHROLOGY [address] | disease) stage 4, | | | | [address] | [address] [place] | GFR 15-29 ml/min | | | | [place], [place] | [place] [address] | (HCC) (Primary Dx); | | | | [address] | [phone] | Anemia in stage 4 | | | | [phone] | | chronic kidney | | | [...] | | | | | | [place] [address] | | | | | | [phone] | | | | | | | | +--------+---------+ + + + documented as of this encounter Visit Diagnoses + + | Diagnosis | + + | CKD (chronic kidney disease) stage 4, GFR 15-29 ml/min ([facility]) - Primary Chronic kidney | | disease, Stage IV (severe) | + + | Anemia in stage 4 chronic kidney disease ([facility]) | + + documented in this encounter"
--- OUTSIDE RECORDS SUMMARY | ~2019-12-22 | XMS | Encounter Summary ---
Demographics + + + | Address | [address] | | | [place] [address] | + + + | Home Phone | | + + + | Preferred Language | Unknown | + + + | Marital Status | | + + + | Christianity Affiliation | 1041 | + + + [...] [place], [place] | | | | | [address] | | + + + + + | Misty Boateng | ECON | [address] | | | | | [place], [place] | | | | | [address] | | + + + + + Care Team Providers + +------+ + | Care Faucet Polisher Name | Role | Phone | + +------+ + PCP | Unavailable | + +------+ + Encounter Details +--------+ + + + + | Date | Type | Department | Care Team | Description | +--------+ + + + + | 07/18/ | Abstract | [facility] [place] | Peace Drake | | | 2015 | | NEPHROLOGY [address] | M, DO [address] | | | | | [address] | [place] | | | | | [place], [place] | [place], [place] | | | | | [address] | [address] | | | | | [phone] | | | +--------+ + + + [...] this encounter Progress Notes Mandy Negrete - 07/18/2016 8:26 AM PSTOutside record: Progress note from Hai mills MD, dos: 05/22/16. Sent to scan. documented in this encounter [...] | | | | | [place] [address] | | | | | | [phone] | | | | | | | | +--------+---------+ + + + documented as of this encounter Visit Diagnoses Not on filedocumented in this encounter"
--- OUTSIDE RECORDS SUMMARY | ~2019-12-22 | XMS | Encounter Summary ---
Demographics + + + | Address | [address] [place] [address] | | | [place] [address] | + + + | Home Phone | | + + + | Preferred Language | Unknown | + + + | Marital Status | | + + + | Adventist Affiliation | CHR | + + + | Race | White | + + + | Ethnic Group | Not or | + + + Author + + + | Author | [facility] | + + + | Organization | [facility] | + + + | Address | Unknown | + + + | Phone | Unavailable | + + + Support + + +---------+ + | Name | Relationship | Address | Phone | + + +---------+ + | Misty Oneill | ECON | Unknown | | + + +---------+ + Care Team Providers + +------+ + | Care Facilities Custodian Name | Role | Phone | + +------+ + | Hai Holman MD | PCP | | + +------+ + Reason for Visit + + + | Reason | Comments | + + + | Lab Results | Labs Blood 03-26-2016 | + + + Encounter Details +--------+ + + + + | Date | Type | Department | Care Team | Description | +--------+ + + + + | 04/30/ | Abstract | Clinical | Thi Aden, | Lab Results (Labs | | 2016 | | Transplant Services | RN [address] | Blood 03-26-2016) | | | | [address] | [address] | | | | | [place], | [place], [place] | | | | | [place] [address] | [address] | | | | | [phone] | | | +--------+ + + + [...] + + | BUN, PLASMA | 35 (A) | 7 - 25 mg/dL | NON [facility] | | | (LAB) | | | LAB | | + + + + + + | CREATININE | 3.31 (A) | 0.6 - 1.3 mg/dL | NON [facility] | | | PLASMA | | | LAB | | | (LAB) | | | | | + + + + + + | ALBUMIN, | 4.5 | 3.5 - 5.7 g/dL | NON [facility] | | | PLASMA | | | LAB | | | (LAB) | | | | | + + + + + + | HEMOGLOBIN | 12.8 (A) | 14.0 - 18.0 | NON [facility] | | | | | g/dL | LAB | | + + + + + + + + | Specimen | + + | Blood - Blood | + + + + + | Narrative | Performed At | + + + | [facility] | [facility] | | [address] | | | [place] [address] | | | [phone] | | + + + + +---------+ + + | Performing | Address | City/State/Zipcode | Phone Number | | Organization | | | | + +---------+ + + | [facility] | | | | + +---------+ + + documented in this encounter Visit Diagnoses Not on filedocumented in this encounter"
--- OUTSIDE RECORDS SUMMARY | ~2019-12-22 | XMS | Encounter Summary ---
Demographics + + + | Address | [address] | | | [place] [address] | + + + | Home Phone | | + + + | Preferred Language | Unknown | + + + | Marital Status | | + + + | Adventist Affiliation | 1041 | + + + | Race | Unknown | + + + | Ethnic Group | Unknown | + + + Author + + + | Author | [facility] | | | and [place] | + + + | Organization | [facility] | | | and [place] | + + + | Address | Unknown | + + + | Phone | Unavailable | + + + Support + + + + + | Name | Relationship | Address | Phone | + + + + + | Ryan Oneill | ECON | [place], [place] | | | | | [address] | | + + + + + | Misty Boateng | ECON | [address] | | | | | [place], [place] | | | | | [address] | | + + + + + Care Team Providers + +------+ + | Care Rotary Furnace Tender Name | Role | Phone | + +------+ + PCP | Unavailable | + +------+ + Reason for Visit + + + | Reason | Comments | + + + | Medication Refill | | + + + Encounter Details +--------+--------+ + + + | Date | Type | Department | Care Team | Description | +--------+--------+ + + + | 08/11/ | Refill | [facility] [place] | Christine Martinez W, | Medication Refill | | 2018 | | NEPHROLOGY [address] | MD [address] | | | | | [address] | [address] [place] | | | | | [place], [place] | [facility] [address] | | | | | [address] | [phone] | | | | | [phone] | | | +--------+--------+ + + + [...] | | | | | | [place] [id number] | | | | | | [phone] | | | | | | | | +--------+---------+ + + + documented as of this encounter Visit Diagnoses Not on filedocumented in this encounter"
--- OUTSIDE RECORDS SUMMARY | ~2019-12-22 | XMS | Encounter Summary ---
Demographics + + + | Address | [address] [place] [address] | | | [place] [address] | + + + | Home Phone [...] Team Providers + +------+ + | Care Wreath Inspector Name | Role | Phone | + +------+ + | Hai Holman MD | PCP | | + +------+ + Reason for Visit + + + | Reason | Comments | + + + | Tx Recommendation | vaccines | | Tracking | | + + + Encounter Details +--------+ + + + + | Date | Type | Department | Care Team | Description | +--------+ + + + + | 01/06/ | Telephone | Clinical | Thi Aden, | Tx Recommendation | | 2016 | | Transplant Services | RN [address] | Tracking (vaccines) | | | | [address] | [address] | | | | | [place], | [place], [place] | | | | | [place] [address] | [address] | | | | | [phone] | | | +--------+ + + + [...]
--- OUTSIDE RECORDS SUMMARY | ~2019-12-22 | XMS | Encounter Summary ---
Demographics + + + | Address | [address] [place] [address] | | | [place] [address] | + + + | Home Phone [...] + + + | Author | [facility] | + + + | Organization | [facility] | + + + | Address | Unknown | + + + | Phone | Unavailable | + + + Support + + +---------+ + | Name | Relationship | Address | Phone | + + +---------+ + | Misty Oneill | ECON | Unknown | | + + +---------+ + Care Team Providers + +------+ + | Care Outboard Motorboat Rigger Name | Role | Phone | + [...] + + | 12/04/ | Hospital | Outpatient Care | Tim Skinner MD | | | 2020 - | Encounter | Unit at [facility] [address] | [address] | | | | | [address] Mailcode: | [place], | | | 12/05/ | | [facility] | [place] [address] | | | 2019 | | and [place], | [phone] | | | | | Building [address] | | | | | | [place], [place] | | | | | | [address] | | | | | | [phone] | | | +--------+ + + + [...] Skinner MD - 12/06/2019 9:[address] [facility] Inpatient Discharge Summary Patient: Seema Oneill ([id number]) Author: Mario Alberto Caballero MD Attending: Tim [...] by mouth two times daily. Humira Pen Drnoaj-XX-AV Start 40 mg/0.8 mL Pnkt Generic drug: [...] person will be ready by the next business day. It is your responsibility to keep [...] to 4:30pm, call the Otolaryngology clinic at [phone]. For emergencies that occur after hours, weekends, and holidays, call the [facility] oper ator at [phone] and ask to have the ENT doctor on-call paged Follow-up: Schedule the following appointment(s) when you get home CHAGO NUNEZ MD. Specialty: Internal Medicine Contact information [facility] [address] [place] [place] [address] Tim Skinner MD In 2 weeks. Specialty: Otolaryngology Why: virtual visit Contact information [address] [place] [address] Discharge Physical Exam: BP 132/88 [...] (R4) Otolaryngology - Head and Neck Surgery [facility] [place] Pager: [phone] This patient's history and examination was discussed with me. I agree with the plan of care that has been recommended. Tim Skinner MD Animal Care Giver Head and Neck Surgical Oncology Microvascular Reconstructive [...] liquid nitrogen by Dr. Darnell Yee in [place] AIN (acute interstitial nephritis) 2008 Anemia Ankylosing [...] stage 4, GFR 15-29 ml/min ([facility]) MDRD6 19.28 on 06/21/2015 Crohn's disease of colon ([facility]) 2008 sparing rectum and sigmoid colon; was [...] Depression takes venlafaxine Encounter for extracorporeal dialysis ([facility]) Esophageal reflux NSAID induced peptic ulcer disease; [...] GI Dr. Jhaveri Renal failure Renal hypertension 6721 diagnosis Sleep apnea Varicella childhood chicken pox [...] improved overnight with compazine & zofran [place] [address] Outpatient Care Unit Pager # [phone] 12/06/2019 documented in th is encounter Plan [...] | SERVICES, | | | | (initials [facility]) and | | CENTER FOR | | | | medical record number | | HEALTH + | | | | [id number]. Neck, Left | | HEALING | | [...] identified. | | | | | | Digital Court Reporter sections | | | | | | are submitted. Cassette | | | | | | Summary:A1-2, nodule 1, | | | | | | bisectedA3, nodule | | | | | | 2A4-5, service representative | | | | | | [...] | + + + + + | [facility] | [address] | [place] [address] | | | PATHOLOGY | [address] | | | + + + + + | [facility] | [address] | [place] [address] | | | [facility] | | | | | HEALTH + [...] | | | | | dose on 12/05/19 at 1300, | | AM PDT | [...] | | | intravenous, ONCE, 1 dose, Mon | | 20 12:48 | | | [...] | | | BREAKFAST, First dose on Thu | | AM PDT | | | [...]
--- OUTSIDE RECORDS SUMMARY | ~2019-12-22 | XMS | Encounter Summary ---
Demographics + + + | Address | [address] [place] [address] | | | [place] [address] | + + + | Home Phone [...] Team Providers + +------+ + | Care Hims Manager Name | Role | Phone | [...] LEFT PAROTIDECTOMY | | 2020 | | [facility] | [address] | | | | | and Healing Surgery | [address], | | | | | [facility] | [place] [address] | | | | | Desk Located on the | [phone] | | | | | 4th floor [address] | | | | | | [address], | | | | | | [place] [address] | | | +--------+---------+ + + + [...] Skinner MD - 12/06/2019 9:37 AM PDT [facility] Inpatient Discharge Summary Patient: Seema Oneill ([id number]) Author: Mario Alberto Caballero MD Attending: Tim [...] by mouth two times daily. Humira Pen Pwewyb-HL-EF Start 40 mg/0.8 mL Pnkt Generic drug: [...] to 4:30pm, call the Otolaryngology clinic at [phone]. For emergencies that occur after hours, weekends, and holidays, call the [facility] oper ator at [phone] and ask to have the ENT doctor on-call paged Follow-up: Schedule the following appointment(s) when you get home CHAGO NUNEZ MD. Specialty: Internal Medicine Contact information [facility] [address] [facility] [place] [place] [address] Tim Skinner MD In 2 weeks. Specialty: Otolaryngology Why: virtual visit Contact information [address] [place] [address] Discharge Physical Exam: BP [...] (R4) Otolaryngology - Head and Neck Surgery [facility] [place] Pager: [phone] This patient's history and examination was discussed with me. I agree with the plan of care that has been recommended. Tim Skinner MD Special Education Science Teacher Head and Neck Surgical Oncology Microvascular Reconstructive [...] liquid nitrogen by Dr. Darnell Yee in [place] AIN (acute interstitial nephritis) 2008 Anemia Ankylosing [...] kidney disease) stage 4, GFR 15-29 ml/min ([facility]) MDRD6 19.28 on 06/21/2015 Crohn's disease of colon ([facility]) 2008 sparing rectum and sigmoid colon; was [...] Depression takes venlafaxine Encounter for extracorporeal dialysis ([facility]) Esophageal reflux NSAID induced peptic ulcer disease; [...] GI Dr. Jhaveri Renal failure Renal hypertension 0575 diagnosis Sleep apnea Varicella childhood chicken pox [...] improved overnight with compazine & zofran [place] [address] Outpatient Care Unit Pager # [phone] 12/06/2019 documented in th is encounter Plan [...] | SERVICES, | | | | (initials [place]) and | | CENTER FOR | | | | medical record number | | HEALTH + | | | | [id number]. Neck, Left | | HEALING | | [...] identified. | | | | | | Can Patcher sections | | | | | | are submitted. Cassette | | | | | | Summary:A1-2, nodule 1, | | | | | | bisectedA3, nodule | | | | | | 2A4-5, compliance representative | | | | | | [...] | + + + + + | [facility] | [address] | [place] [address] | | | PATHOLOGY | [address] | | | + + + + + | [facility] | [address] | [place] [address] | | | [facility] | | | | | HEALTH + [...]
--- OUTSIDE RECORDS SUMMARY | ~2019-12-22 | XMS | Encounter Summary ---
Demographics + + + | Address | [address] | | | [place] [address] | + + + | Home Phone [...] [place], [place] | | | | | [address] | | + + + + + | Misty Boateng | ECON | [address] | | | | | [place] | | | | | [address] | | + + + + + Care Team Providers + +------+ + | Care Quality Control Tech Name | Role | Phone | [...] | NEPHROLOGY [address] | [address] | | | | | [address] | [address] [place] | | | | | [place], [place] | [place] [address] | | | | | [address] | [phone] | | | | | [phone] | | | +--------+ + + + [...] 2019 | Visit | | [address] | | | | | | [address] [place] | | | | | | [place] [address] | | | | | | [phone] | | | | | | | [...] 1.019 | | EXTERNAL | | | [place], | | | LAB | | | [...]
--- OUTSIDE RECORDS SUMMARY | ~2019-12-22 | XMS | Encounter Summary ---
Demographics + + + | Address | [address] | | | [place] [address] | + + + | Home Phone [...] [place], [place] | | | | | [address] | | + + + + + | Misty Boateng | ECON | [address] | | | | | [place], [place] | | | | | [address] | | + + + + + Care Team Providers + +------+ + | Care Cloth Inspector Name | Role | Phone | [...] NEPHROLOGY [address] | M, DO [address] | | | | | [address] | [place], [address] | | | | | [place], [place] | [place], [place] | | | | | [address] | [address] | | | | | [phone] | | | +--------+ + + + [...] | | | | | [place] [address] | | | | | | [phone] | | | | | | | [...] | + +---------+ + + External Lab: ODBULIO (09/17/2016) + +-------+ + + + | [...]
--- OUTSIDE RECORDS SUMMARY | ~2019-12-22 | XMS | Encounter Summary ---
Demographics + + + | Address | [address] [place] [address] | | | [place] [address] | + + + | Home Phone | | + + + | Preferred Language | Unknown | + + + | Marital Status | | + + + | Jainism Affiliation | CHR | + + + | Race | White | + + + | Ethnic Group | Not or | + + + Author + + + | Author | [facility] | + + + | Organization | [facility] | + + + | Address | Unknown | + + + | Phone | Unavailable | + + + Support + + +---------+ + | Name | Relationship | Address | Phone | + + +---------+ + | Misty Oneill | ECON | Unknown | | + + +---------+ + Care Team Providers + +------+ + | Care Underground Conduit Installer Name | Role | Phone | [...] | | Transplant Services | RN [address] [facility] | Tracking | | | | [address] | [address] | | | | | [place], | [place], [place] | | | | | [place] [address] | [address] | | | | | [phone] | | | +--------+ + + + [...]
--- OUTSIDE RECORDS SUMMARY | ~2019-12-22 | XMS | Encounter Summary ---
Demographics + + + | Address | [address] [place] [address] | | | [place] [address] | + + + | Home Phone | | + + + | Preferred Language | Unknown | + + + | Marital Status | | + + + | Buddhism Affiliation | CHR | + + + [...] Team Providers + +------+ + | Care Sales Stock Associate Name | Role | Phone | [...] | | | | | [address] [place], | [place], [place] | | | | | [place] [address] | [address] | | | | | [phone] | | | +--------+ + + + [...]
--- OUTSIDE RECORDS SUMMARY | ~2019-12-22 | XMS | Encounter Summary ---
Demographics + + + | Address | [address] [place] [address] | | | [place] [address] | + + + | Home Phone [...] + + + | Author | [facility] | + + + | Organization | [facility] | + + + | Address | Unknown | + + + | Phone | Unavailable | + + + Support + + +---------+ + | Name | Relationship | Address | Phone | + + +---------+ + | Misty Oneill | ECON | Unknown | | + + +---------+ + Care Team Providers + +------+ + | Care Engineering Technology Instructor Name | Role | Phone | [...] 2019 | | Work [address] | [facility] [address] | | | | | [address] | [address] | | | | | [place], [place] | [place], [place] | | | | | [address] [place], [place] | [address] | | | | | [address] | [phone] | | | | | [phone] | | | +--------+ + + + [...]
--- OUTSIDE RECORDS SUMMARY | ~2019-12-22 | XMS | Encounter Summary ---
Demographics + + + | Address | [address] [place] [address] | | | [place] [address] | + + + | Home Phone | | + + + | Preferred Language | Unknown | + + + | Marital Status | | + + + | Mosque Affiliation | CHR | + + + [...] Team Providers + +------+ + | Care Blasting Contract Man Name | Role | Phone | [...] | | | | Staff | Drive [place], [place] | | | | | | [address] | | | +--------+ + + + [...] education information that you received at the [facility]. documented in this encounter Progress [...] | | its performance characteristics determined by [employer]. It | | | has not been [...] [facility] | [address] | [place] [address] | | | MICRO[facility] LAB | [address] | | | + + + + + documented in this encounter Visit Diagnoses + + | Diagnosis | + + | Suspected 2019 novel coronavirus infection - Primary | + + documented in this encounter"
--- OUTSIDE RECORDS SUMMARY | ~2019-12-22 | XMS | Encounter Summary ---
Demographics + + + | Address | [address] [place] [address] | | | [place] [address] | + + + | Home Phone | | + + + | Preferred Language | Unknown | + + + | Marital Status | | + + + | Baptism Affiliation | CHR | + + + [...] Team Providers + +------+ + | Care Hiv Counselor Name | Role | Phone | + +------+ + | Jt Perkins MD | PCP | | + +------+ + Encounter Details +--------+ + + + + | Date | Type | Department | Care Team | Description | +--------+ + + + + | 07/15/ | Lab | LAB IMMUNOGENETIC | | | | 2015 | Requisition | AND TRANSPLANT LAB | | | | | | [address] | | | | | | [place], | | | | | | [place] [address] | | | +--------+ + + + [...] FLOW HLA AB PRA | Routin | 07/15/2016 | | | | SCREEN I/II KE | e | 10:30 AM | | | | | | PST | | | + +--------+ + + + | LIT FLOW HLA II AB | Routin | 07/15/2016 | | | | AG ID KE, BLOOD | e | 10:30 AM | | | | | | PST | | | + +--------+ + + + | LIT FLOW HLA I AB ID | Routin | 07/15/2016 | | Results for this | | KE, BLOOD | e | 10:30 AM | | procedure are in the | | | | PST | | results section. | + +--------+ + + + documented in this encounter Results LIT FLOW HLA AB PRA SCREEN I/II KE (07/15/2016 10:30 AM PST) + + | Specimen | + + | Blood - Blood | | (substance) | + + + + + + + | Performing | Address | City/State/Zipcode | Phone Number | | Organization | | | | + + + + + | [facility] - | [address] | [place], [place] | | | IMMUNOGENETICS/TRANS | [address] | | | | PLANT LAB[facility]ATORY | | | | + + + + + LIT FLOW HLA II AB AG ID KE, BLOOD (07/15/2016 10:30 AM PST) + + | Specimen | + + | Blood - Blood | | (substance) | + + + + + + + | Performing | Address | City/State/Zipcode | Phone Number | | Organization | | | | + + + + + | [facility] - | [address] | [place], [place] | | | IMMUNOGENETICS/TRANS | [address] | | | | [facility] LAB[facility]ORY | | | | + + + + + LIT FLOW HLA I AB ID KE, BLOOD (07/15/2016 10:30 AM PST) + + + + + + | Component | Value | Ref Range | Performed | Pathologist | | | | | At | Signature | + + + + + + | LABEL ONLY | Please see lab report | | [facility] - | | | - LIT | for result. | | IMMUNOGENET | | | | | | ICS/TRANSPL | | | | | | ANT | | | | | | LABORATORY | | + + + + + + + + | Specimen | + + | Blood - Blood | | (substance) | + + + + + + + | Performing | Address | City/State/Zipcode | Phone Number | | Organization | | | | + + + + + | [facility] - | [address] | [place] [address] | | | IMMUNOGENETICS/TRANS | [address] | | | | PLANT LABORATORY | | | | + + + + + documented in this encounter Visit Diagnoses Not on filedocumented in this encounter"
--- OUTSIDE RECORDS SUMMARY | ~2019-12-22 | XMS | Encounter Summary ---
Demographics + + + | Address | [address] | | | [place] [address] | + + + | Home Phone | | + + + | Preferred Language | Unknown | + + + | Marital Status | | + + + | Mormon Affiliation | 1041 | + + + | Race | Unknown | + + + | Ethnic Group | Unknown | + + + Author + + + | Author | [facility] | | | and [place] | + + + | Organization | [facility] | | | and [place] | + + + | Address | Unknown | + + + | Phone | Unavailable | + + + Support + + + + + | Name | Relationship | Address | Phone | + + + + + | Ryan Oneill | ECON | [place], [place] | | | | | [address] | | + + + + + | Misty Boateng | ECON | [address] | | | | | [place] | | | | | [address] | | + + + + + Care Team Providers + +------+ + | Care Knee Bolter Name | Role | Phone | + [...] | | | | | | | ME | | | | | | | COLONOSCOPY | | | | | | | FLX DX | | | | | | | W/COLLJ SPEC | | | | | | | WHEN PFRMD | | | | | | | ME | | | | | | | COLONOSCOPY | | | | | | | W/BIOPSY | | | | | | | SINGLE/MULTI | | | | | | | PLE ME | | | | | | | COLSC FLX | | | | | | | W/RMVL OF | | | | | | | TUMOR POLYP | | | | | | | LESION SNARE | | | | | | | TQ ME | | | | | | | [...] + + + + | 11/10/ | Anesthesia | [facility] | Kian Gold MD | | | 2019 | Event | [facility] | [address] | | | | | [address] | [place] | | | | | [place] | [address] | | | | | [address] | | | | | | [phone] | | | +--------+ + + + + Anesthesia Record + + + + + | Procedure Name | Responsible | Anesthesia Start | Anesthesia Stop Time | | | Anesthesiologist | Time | | + + + + + | COLONOSCOPY (N/A | Kian Gold MD | 11/10/18 1443 | 11/10/18 1512 | | Rectum) | | | | + + + + + +----+---+ + + | Da | T | Event | Comment | | te | i | | | | | m | | | | | e | | | +----+---+ + + | 04 | 1 | | | | /2 | 4 | | | | 4/ | 4 | | | | 20 | 2 | | | | 19 | | | | +----+---+ + + | | 1 | An Checkout | Pre-use anesthesia machine/equipment checkout. | | | 4 | | | | | 4 | | | | | 3 | | | +----+---+ + + | | 1 | An Start | | | | 4 | Data | | | | 4 | | | | | 3 | | | +----+---+ + + | | 1 | An Start | Reassessment prior to anesthesia induction/procedure. | | | 4 | | | | | 4 | | | | | 3 | | | +----+---+ + + | | 1 | AN | Per surgeon request | | | 4 | Antibiotic | | | | 4 | declined | | | | 3 | | | +----+---+ + + | | 1 | First | | | | 4 | Inc/Proc St | | | | 5 | | | | | 1 | | | +----+---+ + + | | 1 | Pre-Procedu | | | | 5 | ral Timeout | | | | 0 | Completed | | | | 6 | | | +----+---+ + + | | 1 | an stop | | | | 5 | data | | | | 0 | | | | | 6 | | | +----+---+ + + | | 1 | An Stop | Patient handed off to recovery nurse. | | | 1 | | | | | 2 | | | +----+---+ + + +------+ | Meds | +------+ + + + | Name | Total | + + + | propofol | 100 mg | + + + | propofol | 350.69 mg | + + + + + | No agents on file. | + + + + | No blood administrations on file. | + + +--------+ + + + | Type | Details | Placement | Removal | +--------+ + + + | Periph | 11/10/18; 1328; Right; Forearm; | 11/10/18 1328 by | 11/10/18 1550 by | | eral | nttv-heb-lhrcvn catheter system; | Yarelis Arizmendi RN | Melania Kunz RN | | IV | 20 gauge; distraction, | | | | | intradermal injection, tolerated | | | | | well, appears comfortable; no | | | | | longer indicated, removed per | | | | | policy/procedure; 11/10/18; 1550 | | | +--------+ + + + [...] | | | | | | [place] [address] | | | | | | [phone] | | | | | | | | +--------+---------+ + + + documented as of this encounter Visit Diagnoses Not on filedocumented in this encounter Administered Medications + + + + + +------+ | Medication Order | MAR | Action | Dose | Rate | Site | | | Action | Date | | | | + + + + + +------+ | propofol (DIPRIVAN) injection | Rate/Dos | 11/11/19 | 180 | 91 mL/hr | | | Intravenous, CONTINUOUS PRN, | e Change | 19 2:56 | mcg/kg/m | | | | Starting 11/10/18 at 1448, | | PM PDT | in | | | | Anesthesia Intra-op | | | | | | + + + + + +------+ +---------+ + +-------+---+ | New Bag | 11/11/19 | 160 | 80.9 | | | | 19 2:48 | mcg/kg/m | mL/hr | | | | PM PDT | in | | | +---------+ + +-------+---+ +---+---+ | | | +---+---+ + +-------+ +--------+---+---+ | propofol (DIPRIVAN) injection | Given | 11/11/19 | 100 mg | | | | Intravenous, PRN, Starting Wed | | 19 2:50 | | | | | 11/10/18 at 1450, Anesthesia | | PM PDT | | | | | Intra-op | | | | | | + +-------+ +--------+---+---+ +---+---+ | | | +---+---+ documented in this encounter"
--- OUTSIDE RECORDS SUMMARY | ~2019-12-22 | XMS | Encounter Summary ---
Demographics + + + | Address | [address] | | | [place] [address] | + + + | Home Phone | | + + + | Preferred Language | Unknown | + + + | Marital Status | | + + + | Jewish Affiliation | 1041 | + + + [...] [place], [place] | | | | | [address] | | + + + + + | Misty Boateng | ECON | [address] | | | | | [place] | | | | | [address] | | + + + + + Care Team Providers + +------+ + | Care Lab Scientist Name | Role | Phone | + +------+ + | Jt Perkins MD | PCP | | + +------+ + Encounter Details +--------+ + + + + | Date | Type | Department | Care Team | Description | +--------+ + + + + | 08/02/ | Orders Only | [facility] | Christine Martinez, | CKD (chronic kidney | | 2020 | | NEPHROLOGY [address] | disease) stage 4, | | | | [address] | [address] [place] | GFR 15-29 ml/min | | | | [place] | [place] [address] | ([facility]) (Primary Dx) | | | | [address] | [phone] | | | | | [phone] | | | +--------+ + + + [...] encounter Progress Notes Kenyatta Jacome RN - 08/02/2019 10:10 AM PSTLabs for upcoming nephrology appointment sent to: [facility] documented in t his encounter Plan of Treatment +--------+---------+ + + + | Date | Type | Specialty | Care Team | Description | +--------+---------+ + + + | 03/20/ | Office | Nephrology | Christine Martinez, | | | 2019 | Visit | | [address] | | | | | | [address] [place] | | | | | | [place] [address] | | | | | | [phone] | | | | | | | | +--------+---------+ + + + + +------+--------+ + + | Name | Type | Priori | Associated Diagnoses | Order Schedule | | | | ty | | | + +------+--------+ + + | Renal Function Panel | Lab | Routin | CKD (chronic | 1 Occurrences | | | | e | kidney disease) | starting 08/02/2019 | | | | | stage 4, GFR 15-29 | until 08/02/2020 | | | | | ml/min (HCC) | | + +------+--------+ + + | Protein/Creatinine | Lab | Routin | CKD (chronic | 1 Occurrences | | Ratio, Urine | | e | kidney disease) | starting 08/02/2019 | | | | | stage 4, GFR 15-29 | until 08/02/2020 | | | | | ml/min (HCC) | | + +------+--------+ + + | Urinalysis With | Lab | Routin | CKD (chronic | 1 Occurrences | | Microscopic | | e | kidney disease) | starting 08/02/2019 | | | | | stage 4, GFR 15-29 | until 08/02/2020 | | | | | ml/min (HCC) | | + +------+--------+ + + documented as of this encounter Visit Diagnoses + + | Diagnosis | + + | CKD (chronic kidney disease) stage 4, GFR 15-29 ml/min ([facility]) - Primary Chronic kidney | | disease, Stage IV (severe) | + + documented in this encounter"
--- OUTSIDE RECORDS SUMMARY | ~2019-12-22 | XMS | Encounter Summary ---
Demographics + + + | Address | [address] [place] [address] | | | [place] [address] | + + + | Home Phone | | + + + | Preferred Language | Unknown | + + + | Marital Status | | + + + | Temple Affiliation | CHR | + + + [...] Team Providers + +------+ + | Care Waiter/Waitress Room Service Name | Role | Phone | + +------+ + | Jt Perkins MD | PCP | | + +------+ + Encounter Details +--------+ + + + + | Date | Type | Department | Care Team | Description | +--------+ + + + + | 09/22/ | Lab | LAB IMMUNOGENETIC | | | | 2016 | Requisition | AND TRANSPLANT LAB | | | | | | [address] | | | | | | [place], | | | | | | [place] [address] | | | +--------+ + + + [...] FLOW HLA AB PRA | Routin | 09/22/2016 | End stage renal | | | SCREEN I/II KE | e | 1:35 PM | disease (HCC) | | | | | PST | | | + +--------+ + + + documented in this encounter Results LIT FLOW HLA AB PRA SCREEN I/II KE (09/22/2016 1:35 PM PST) + + | Specimen | + + | Blood - Blood | | (substance) | + + + + + + + | Performing | Address | City/State/Zipcode | Phone Number | | Organization | | | | + + + + + | [facility] - | [address] | [place] [address] | | | IMMUNOGENETICS/TRANS | [address] | | | | PLANT LAB[facility]ATORY | | | | + + + + + documented in this encounter Visit Diagnoses + + | Diagnosis | + + | End stage renal disease (HCC) End stage renal disease | + + documented in this encounter"
--- OUTSIDE RECORDS SUMMARY | ~2019-12-22 | XMS | Encounter Summary ---
Demographics + + + | Address | [address] [place] [address] | | | [place] [address] | + + + | Home Phone [...] Team Providers + +------+ + | Care Supervisor Shipping Name | Role | Phone | + [...] | on | Work [address] | FACILITIES MANAGEMENT EXECUTIVE [address] | Update | | | | Michelle Adam | Dav[address] Carballo | | | | | Perry Talmo, Room | [place], [place] | | | | | [address] [place], [place] | [address] | | | | | [address] | [phone] | | | | | [phone] | | | +--------+ + + + [...]
--- OUTSIDE RECORDS SUMMARY | ~2019-12-22 | XMS | Encounter Summary ---
Demographics + + + | Address | [address] | | | [place] [address] | + + + | Home Phone | | + + + | Preferred Language | Unknown | + + + | Marital Status | | + + + | Methodist Affiliation | 1041 | + + + [...] [place], [place] | | | | | [address] | | + + + + + | Misty Boateng | ECON | [address] | | | | | [place] | | | | | [address] | | + + + + + Care Team Providers + +------+ + | Care Crawler Dragline Operator Name | Role | Phone | [...] + + | 08/23/ | Telephone | [facility] | Christine Martinez W, | Blood Pressure | | 2019 | | NEPHROLOGY [address] | MD [address] | | | | | [address] | [address] [facility] | | | | | [place], [place] | [place] [address] | | | | | [address] | [phone] | | | | | [phone] | | | +--------+ + + + [...] | | | | | [place] [address] | | | | | | [phone] | | | | | | | | +--------+---------+ + + + documented as of this encounter Visit Diagnoses Not on filedocumented in this encounter"
--- OUTSIDE RECORDS SUMMARY | ~2019-12-22 | XMS | Encounter Summary ---
Demographics + + + | Address | [address] [place] [address] | | | [place] [address] | + + + | Home Phone [...] Team Providers + +------+ + | Care Dishwasher Preparer Name | Role | Phone | + [...] | [address] | Kait Barrios [place], | | | | | [place], | [place] [address] | | | | | [place] [address] | | | | | | [phone] | | | +--------+ + + + [...]
--- OUTSIDE RECORDS SUMMARY | ~2019-12-22 | XMS | Encounter Summary ---
Demographics + + + | Address | [address] | | | [place] [address] | + + + | Home Phone [...] [place], [place] | | | | | [address] | | + + + + + | Misty Boateng | ECON | [address] | | | | | [place] | | | | | [address] | | + + + + + Care Team Providers + +------+ + | Care Escalator Installer Name | Role | Phone | + +------+ + | Jt Perkins MD | PCP | | + +------+ + Encounter Details +--------+ + + + + | Date | Type | Department | Care Team | Description | +--------+ + + + + | 11/15/ | Orders Only | [facility] | Chirstine Martinez, | CKD (chronic kidney | | 2019 | | NEPHROLOGY [address] | [address] | disease) stage 4, | | | | [address] | [address] [place] | GFR 15-29 ml/min | | | | [place] | [place] [id number] | ([facility]) (Primary Dx) | | | | [address] | [phone] | | | | | [phone] | | | +--------+ + + + [...] this encounter Progress Kenyatta Atkins RN - 11/15/2018 11:52 AM PDTLabs for upcoming nephrology appointment sent to: Jose Eduardo documented in this encounter Plan of Treatment [...] | | | | | [place] [address] | | | | | | [phone] | | | | | | | | +--------+---------+ + + + documented as of this encounter Visit Diagnoses + + | Diagnosis | + + | CKD (chronic kidney disease) stage 4, GFR 15-29 ml/min ([facility]) - Primary Chronic kidney | | disease, Stage IV (severe) | + + documented in this encounter"
--- OUTSIDE RECORDS SUMMARY | ~2019-12-22 | XMS | Encounter Summary ---
Demographics + + + | Address | [address] | | | [place] [address] | + + + | Home Phone [...] [place], [place] | | | | | [address] | | + + + + + | Misty Boateng | ECON | [address] | | | | | [place], [place] | | | | | [address] | | + + + + + Care Team Providers + +------+ + | Care Scanning Manager Name | Role | Phone | + +------+ + PCP | Unavailable | + +------+ + Encounter Details +--------+ + + + + | Date | Type | Department | Care Team | Description | +--------+ + + + + | 12/02/ | Hospital | [facility] | Conversion | Migraine without | | 2016 | Encounter | [facility] | Transaction, | aura and without | | | | [address] | Provider Unknown | status migrainosus, | | | | [place], [place] | | not intractable | | | | [address] | (Fax) | | | | | [phone] | | | +--------+ + + + [...] | | | | | | [place] [address] | | | | | | [phone] | | | | | | | [...] the brain/intracranial | | | contents 2. Kyrd-bl-ifzwnt intracranial MRA, without contrast | | | [...] with some FLAIR artifact in typical distributions Lmmo-ll-juvemf | | | intracranial MRA reveals a very diminutive right vertebral artery, | | | there is some basilar contribution, but not much. Going back to the CT | | | angiogram from April 2002-this is stable. The posterior | | | communicating vessels are either very diminutive or absent. There | | | is good symmetric syjv-eh-oreqpe flow in the carotid siphons, and the [...] of the | | brain/intracranial contents 2. Ooyg-qy-orlgni intracranial MRA, without contrast No | | [...] with some FLAIR artifact in typical distributions Ocss-hf-pphupj intracranial | | MRA reveals a very diminutive right vertebral artery, there is some basilar | | contribution, but not much. Going back to the CT angiogram from April 2002-this is | | stable. The posterior communicating vessels are either very diminutive or absent. There | | is good symmetric xnpo-wm-ibysxf flow in the carotid siphons, and the [...]
--- OUTSIDE RECORDS SUMMARY | ~2019-12-22 | XMS | Encounter Summary ---
Demographics + + + | Address | [address] [place] [address] | | | [place] [address] | + + + | Home Phone | | + + + | Preferred Language | Unknown | + + + | Marital Status | | + + + | Sabianist Affiliation | CHR | + + + [...] Team Providers + +------+ + | Care Continuing Education Dean Name | Role | Phone | + [...] | | | | | Kait Bar[place], | | | | | | [place] [address] | | | +--------+ + + + [...] + + | [facility] - | [address] [facility] [address] | [place] [address] | | | IMMUNOGENETICS/TRANS | [address] | | | | [facility] | | | | + + + + + documented in this encounter Visit Diagnoses + + | Diagnosis | + + | End stage renal disease (HCC) End stage renal disease | + + documented in this encounter"
--- OUTSIDE RECORDS SUMMARY | ~2019-12-22 | XMS | Encounter Summary ---
Demographics + + + | Address | [address] [place] [address] | | | [place] [address] | + + + | Home Phone [...] Team Providers + +------+ + | Care Professor Criminal Justice Name | Role | Phone | + +------+ + | Hai Holman MD | PCP | | + +------+ + Reason for Visit + + + | Reason | Comments | + + + | Pre Transplant | Intake | | Workup | | + + + Encounter Details +--------+ + + + + | Date | Type | Department | Care Team | Description | +--------+ + + + + | 06/27/ | Telephone | Clinical | Thi Aden, | Pre Transplant | | 2015 | | Transplant Services | RN [address] [facility] | Workup (Intake) | | | | [address] | [address] [place] Barrios | | | | | Kait Barrios [place], | [place], [place] | | | | | [place] [address] | [address] | | | | | [phone] | | | +--------+ + + + [...]
--- OUTSIDE RECORDS SUMMARY | ~2019-12-22 | XMS | Encounter Summary ---
Demographics + + + | Address | [address] | | | [place] [address] | + + + | Home Phone [...] [place], [place] | | | | | [address] | | + + + + + | Misty Boateng | ECON | [address] | | | | | [place], [place] | | | | | [address] | | + + + + + Care Team Providers + +------+ + | Care Outside Collector Name | Role | Phone | + [...] NEPHROLOGY [address] | MD [address] [place] | nephritis chronic | | | | [address] | [address] [place] | (Primary Dx) | | | | [place] | [place] [address] | | | | | [address] | [phone] | | | | | [phone] | | | +--------+ + + + [...] | | | | | [place] [address] | | | | | | [phone] | | | | | | | | +--------+---------+ + + + documented as of this encounter Visit Diagnoses + + | Diagnosis | + + | 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
--- OUTSIDE RECORDS SUMMARY | ~2019-12-22 | XMS | Encounter Summary ---
Demographics + + + | Address | [address] | | | [place] [address] | + + + | Home Phone | | + + + | Preferred Language | Unknown | + + + | Marital Status | | + + + | Mormonism Affiliation | 1041 | + + + | Race | Unknown | + + + | Ethnic Group | Unknown | + + + Author + + + | Author | [facility] | | | and [place] | + + + | Organization | [facility] | | | and [place] | + + + | Address | Unknown | + + + | Phone | Unavailable | + + + Support + + + + + | Name | Relationship | Address | Phone | + + + + + | Ryan Oneill | ECON | [place], [place] | | | | | [address] | | + + + + + | Misty Boateng | ECON | [address] | | | | | [place] | | | | | [address] | | + + + + + Care Team Providers + +------+ + | Care Supplier Manager Name | Role | Phone | [...] | | | | | disease, | [address] | [address] | | | | | stage IV | [address] [place] | [place], [place] | | | | | (severe) | [place], [place] | [address] | | | | | (HCC) | [address] | Phone: | | | | | | Phone: | [phone] | | | | | | [phone] | Fax: | | | | | | Fax: | [phone] | | | | | | [phone] | | +--------+ + + + + + Encounter Details +--------+ + + + + | Date | Type | Department | Care Team | Description | +--------+ + + + + | 08/29/ | Orders Only | [facility] | Christine Martinez W, | Chronic kidney | | 2016 | | NEPHROLOGY [address] | [address] | disease, stage IV | | | | [address] | [address] [place] | (severe) (HCC) | | | | [place], [place] | [place] [address] | (Primary Dx) | | | | [address] | [phone] | | | | | [phone] | | | +--------+ + + + [...] | | | | | | [place] [address] | | | | | | [phone] | | | | | | | [...]
--- OUTSIDE RECORDS SUMMARY | ~2019-12-22 | XMS | Encounter Summary ---
Demographics + + + | Address | [address] [place] [address] | | | [place] [address] | + + + | Home Phone [...] Team Providers + +------+ + | Care Boat Canvas Maker Installer Name | Role | Phone | [...] | | | Surgery Services at | [facility] [place], | | | | | [facility] [address] | [place] [address] | | | | | [place] Mailcode: | [phone] | | | | | [facility] | | | | | | and Healing, | | | | | | [address] | | | | | | [place], [place] | | | | | | [address] | | | | | | [phone] | | | +--------+ + + + [...]
--- OUTSIDE RECORDS SUMMARY | ~2019-12-22 | XMS | Encounter Summary ---
Demographics + + + | Address | [address] | | | [place] [address] | + + + | Home Phone [...] [place], [place] | | | | | [address] | | + + + + + | Misty Boateng | ECON | [address] | | | | | [place] | | | | | [address] | | + + + + + Care Team Providers + +------+ + | Care Guide Name | Role | Phone | + +------+ + | Jt Perkins MD | PCP | | + +------+ + Encounter Details +--------+ + + + + | Date | Type | Department | Care Team | Description | +--------+ + + + + | 02/09/ | Orders Only | [facility] | Conversion | | | 2013 | | NEPRHOLOGY [place] | Transaction, | | | | | [address] | Provider Unknown | | | | | [address] [place], [place] | [phone] | | | | | [address] | | | | | | [phone] | | | +--------+ + + + [...] | | | | | | [place] [id number] | | | | | | [phone] | | | | | | | | +--------+---------+ + + + documented as of this encounter Procedures + +--------+ + + + | Procedure Name | Priori | Date/Time | Associated Diagnosis | Comments | | | ty | | | | + +--------+ + + + | LIPID PANEL | Routin | 02/09/2014 | | Results for this | | | e | 12:00 AM | | procedure are in the | | | | PDT | | results section. | + +--------+ + + + | PSA, SCREEN | Routin | 02/09/2014 | | Results for this | | | e | 12:00 AM | | procedure are in the | | | | PDT | | results section. | + +--------+ + + + | URIC ACID | Routin | 02/09/2014 | | Results for this | | | e | 12:00 AM | | procedure are in the | | | | PDT | | results section. | + +--------+ + + + | TSH | Routin | 02/09/2014 | | Results for this | | | e | 12:00 AM | | procedure are in the | | | | PDT | | results section. | + +--------+ + + + | T4, FREE | Routin | 02/09/2014 | | Results for this | | | e | 12:00 AM | | procedure are in the | | | | PDT | | results section. | + +--------+ + + + | COMPREHENSIVE | Routin | 02/09/2014 | | Results for this | | METABOLIC PANEL | e | 12:00 AM | | procedure are in the | | | | PDT | | results section. | + +--------+ + + + documented in this encounter Results Uric Acid (02/09/2014 12:00 AM PDT) + +-------+ + + + | Component | Value | Ref Range | Performed | Pathologist | | | | | At | Signature | + +-------+ + + + | Uric Acid | 7.1 | | EXTERNAL | | | | [...] | | | + +---------+ + + TSH (02/09/2014 12:00 AM PDT) + +-------+ + + + | Component | Value | Ref Range | Performed | Pathologist | | | | | At | Signature | + +-------+ + + + | TSH | 2.368 | uIU/mL | EXTERNAL | | | | | [...] | | | + +---------+ + + T4, Free (02/09/2014 12:00 AM PDT) + +-------+ + + + | Component | Value | Ref Range | Performed | Pathologist | | | | | At | Signature | + +-------+ + + + | FREE T4 | 0.86 | | EXTERNAL | | | (REF) | | | LAB | | + +-------+ + + + + + | Specimen | + + | Blood specimen | | (specimen) | + + + +---------+ + + | Performing | Address | City/State/Zipcode | Phone Number | | Organization | | | | + +---------+ + + | EXTERNAL LAB | | | | + +---------+ + + PSA, Screen (02/09/2014 12:00 AM PDT) + +-------+ + + + | Component | Value | Ref Range | Performed | Pathologist | | | | | At | Signature | + +-------+ + + + | PSA, Free | 0.860 | ng/mL | EXTERNAL | | | Pct | | | LAB | | + +-------+ + + + + + | Specimen | + + | Blood specimen | | (specimen) | + + + +---------+ + + | Performing | Address | City/State/Zipcode | Phone Number | | Organization | | | | + +---------+ + + | EXTERNAL LAB | | | | + +---------+ + + Lipid Panel (02/09/2014 12:00 AM PDT) + +-------+ + + + | Component | Value | Ref Range | Performed | Pathologist | | | | | At | Signature | + +-------+ + + + | Cholesterol | 186 | mg/dL | EXTERNAL | | | | | | LAB | | + +-------+ + + + | Triglycerid | 143 | mg/dL | EXTERNAL | | | es | | | LAB | | + +-------+ + + + | HDL | 41 | mg/dl | EXTERNAL | | | | | | LAB | | + +-------+ + + + | LDL, | 116 | mg/dL | EXTERNAL | | | Calculated | | | LAB | | + +-------+ + + + | LDl/HDL | | | EXTERNAL | | | Ratio | | | LAB | | + +-------+ + + + | Chol/HDL | 5 | | EXTERNAL | | | Ratio | | | LAB | | + +-------+ + + + | VLDL | | mg/dL | EXTERNAL | | | | | | LAB | | + +-------+ + + + | Non HDL | | | EXTERNAL | | | Chol. | | | LAB | | | (LDL+VLDL) | | | | | + +-------+ + + + + + | Specimen | + + | Blood specimen | | (specimen) | + + + +---------+ + + | Performing | Address | City/State/Zipcode | Phone Number | | Organization | | | | + +---------+ + + | EXTERNAL LAB | | | | + +---------+ + + Comprehensive Metabolic Panel (02/09/2014 12:00 AM PDT) + +-------+ + + + | Component | Value | Ref Range | Performed | Pathologist | | | | | At | Signature | + +-------+ + + + | Glucose, | 86 | mg/dL | EXTERNAL | | | Fasting | | | LAB | | + +-------+ + + + | BUN | 18 | mg/dL | EXTERNAL | | | | | | LAB | | + +-------+ + + + | Creatinine | 2.1 | mg/dL | EXTERNAL | | | | | | LAB | | + +-------+ + + + | BUN/Creatin | 8.50 | | EXTERNAL | | | ine Ratio | | | LAB | | + +-------+ + + + | Calcium | 9.2 | mg/dL | EXTERNAL | | | | | | LAB | | + +-------+ + + + | Protein, | 7.3 | g/dL | EXTERNAL | | | Total | | | LAB | | + +-------+ + + + | Albumin | 4.8 | | EXTERNAL | | | | | | LAB | | + +-------+ + + + | Globulin | | | EXTERNAL | | | | | | LAB | | + +-------+ + + + | A/G Ratio | | | EXTERNAL | | | | | | LAB | | + +-------+ + + + | Bilirubin | 1.3 | mg/dL | EXTERNAL | | | Total | | | LAB | | + +-------+ + + + | ALP, | 59 | | EXTERNAL | | | External | | | LAB | | + +-------+ + + + | ALT | 24 | U/L | EXTERNAL | | | | | | LAB | | + +-------+ + + + | AST | 21 | U/L | EXTERNAL | | | | | | LAB | | + +-------+ + + + | Na | 138 | mmol/L | EXTERNAL | | | | | | LAB | | + +-------+ + + + | K | 4.1 | mmol/L | EXTERNAL | | | | | | LAB | | + +-------+ + + + | Cl | 103 | mmol/L | EXTERNAL | | | | | | LAB | | + +-------+ + + + | CO2 | 25 | mmol/L | EXTERNAL | | | | | | LAB | | + +-------+ + + + | Anion Gap | 10 | mmol/L | EXTERNAL | | | | | | LAB | | + +-------+ + + + | Estimated | 38 | mg/dL | EXTERNAL | | | [...]
--- OUTSIDE RECORDS SUMMARY | ~2019-12-22 | XMS | Encounter Summary ---
Demographics + + + | Address | [address] | | | [place] [address] | + + + | Home Phone [...] [place], [place] | | | | | [address] | | + + + + + | Misty Boateng | ECON | [address] | | | | | [place] | | | | | [address] | | + + + + + Care Team Providers + +------+ + | Care Power Station Operator Name | Role | Phone | [...] NEPHROLOGY [address] | MD [address] | | | | | [address] | [address] [facility] | | | | | [place], [place] | [place] [address] | | | | | [address] | [phone] | | | | | [phone] | | | +--------+--------+ + + + [...] | | | | | [place] [address] | | | | | | [phone] | | | | | | | | +--------+---------+ + + + documented as of this encounter Visit Diagnoses Not on filedocumented in this encounter"
--- OUTSIDE RECORDS SUMMARY | ~2019-12-22 | XMS | Encounter Summary ---
Demographics + + + | Address | [address] [place] [address] | | | [place] [address] | + + + | Home Phone [...] Team Providers + +------+ + | Care Fund Raiser Name | Role | Phone | + [...] [facility] | | | | | | [address] | | | | | | Loop Physician's | | | | | | [place], [address] | | | | | | [place], [place] | | | | | | [address] | | | | | | [phone] | | | +--------+ + + + [...] | + +--------+ + + + | X-RAY CHEST 2 VIEW | Routin | 09/06/2015 | Chronic kidney | Results for this | | | e | 8:49 AM | disease, stage III | procedure are in the | | | | PST | (moderate) ([facility]) | results section. | | | | | Acute interstitial | | | | | | nephritis | | + +--------+ + + + documented in this encounter Results X-RAY CHEST 2 VIEW (09/06/2015 8:49 AM PST) + + + + + + | Component | Value | Ref Range | Performed | Pathologist | | | | | At | Signature | + + + + + + | CHEST, 2 | EXAM: CHEST 2 VIEWS | | | | | VIEWS [place] | 09/06/15 08:49:00 | | | | | STEREO | HISTORY: 44-year-old | | | | | | male with chronic kidney | | | | | | disease. Pretransplant | | | | | | evaluation. COMPARISON: | | | | | | None. FINDINGS: Cardiac | | | | | | silhouette size is | | | | | | normal and the | | | | | | mediastinal contour is | | | | | | within normallimits. The | | | | | | lungs are clear, with | | | | | | no focal consolidation | | | | | | or pulmonary edema.No | | | | | | pleural effusion or | | | | | | pneumothorax is | | | | | | appreciated. The bones | | | | | | are intact.Surgical | | | | | | clips are noted in the | | | | | | right upper quadrant of | | | | | | the abdomen, | | | | | | consistentwith prior | | | | | | cholecystectomy. | | | | | | IMPRESSION: Clear lungs. | | | | | | Attending Radiologists: | | | | | | MANUEL KUMARI, | | | | | | MDAuthor: MANUEL KUMARI, | | | | | | I personally | | | | | | reviewed the images and, | | | | | | if necessary, edited | | | | | | the report. I agreewith | | | | | | the report as now | | | | | | presented. | | | | | | Final/Electronically | | | | | | nicky / MANUEL | | | | | | KENYETTA 09/06/2015 11:01 | | | | | | AM [...]
--- OUTSIDE RECORDS SUMMARY | ~2019-12-22 | XMS | Encounter Summary ---
Demographics + + + | Address | [address] | | | [place] [address] | + + + | Home Phone [...] [place], [place] | | | | | [address] | | + + + + + | Misty Boateng | ECON | [address] | | | | | [place], [place] | | | | | [address] | | + + + + + Care Team Providers + +------+ + | Care Flexographic Press Operator Name | Role | Phone [...] | NEPHROLOGY [address] | [address] | | | | | [address] | [address] [place] | | | | | [place], [place] | [place] [address] | | | | | [address] | [phone] | | | | | [phone] | | | +--------+ + + + [...] | | | | | [place] [address] | | | | | | [phone] | | | | | | | [...] 1.018 | | EXTERNAL | | | [place], | | | LAB | | | [...]
--- OUTSIDE RECORDS SUMMARY | ~2019-12-22 | XMS | Encounter Summary ---
Demographics + + + | Address | [address] [place] [address] | | | [place] [address] | + + + | Home Phone [...] Team Providers + +------+ + | Care Ordnance Engineer Name | Role | Phone | [...] + + | 10/16/ | Documentati | Clinical | Thi Aden, | KP Waitlist | | 2020 | on | Transplant Services | RN [address] | | | | | [address] | [address] | | | | | Kait Barrios [place], | [place], [place] | | | | | [place] [address] | [address] | | | | | [phone] | | | +--------+ + + + [...]
--- OUTSIDE RECORDS SUMMARY | ~2019-12-22 | XMS | Encounter Summary ---
Demographics + + + | Address | [address] [place] [address] | | | [place] [address] | + + + | Home Phone [...] Team Providers + +------+ + | Care Watch Assembly Inspector Name | Role | Phone | + +------+ + | Jt Perkins MD | PCP | | + +------+ + Encounter Details +--------+ + + + + | Date | Type | Department | Care Team | Description | +--------+ + + + + | 04/26/ | Telephone | Clinical | Margaret Holman, | | | 2019 | | Transplant Services | [facility] [address] | | | | | [address] | [address] | | | | | Kait Barrios [place], | [place], [place] | | | | | [place] [address] | [address] | | | | | [phone] | [phone] | | +--------+ + + + + [...]
--- OUTSIDE RECORDS SUMMARY | ~2019-12-22 | XMS | Encounter Summary ---
Demographics + + + | Address | [address] [place] [address] | | | [place] [address] | + + + | Home Phone [...] + + + | Author | [facility] | + + + | Organization | [facility] | + + + | Address | Unknown | + + + | Phone | Unavailable | + + + Support + + +---------+ + | Name | Relationship | Address | Phone | + + +---------+ + | Misty [place]ill | ECON | Unknown | | + + +---------+ + Care Team Providers + +------+ + | Care Housefellow Name | Role | Phone | + [...] | 2015 | | Transplant Services | [address] | 03/26/16) | | | | [address] | [address] | | | | | Kait Barrios [place], | [place], [place] | | | | | [place] [address] | [address] | | | | | [phone] | [phone] | | | | | | | [...] | NON [facility] | | [facility] [place] [address] | | |[place] [address] | | + + + + +---------+ + + | Performing | Address | City/State/Zipcode | Phone Number | | Organization | | | | + +---------+ + + | NON [facility] | | | | + +---------+ + + documented in this encounter Visit Diagnoses Not on filedocumented in this encounter"
--- OUTSIDE RECORDS SUMMARY | ~2019-12-22 | XMS | Encounter Summary ---
Demographics + + + | Address | [address] [place] [address] | | | [place] [address] | + + + | Home Phone [...] Providers + +------+ + | Care Drug Discovery Informatics Specialist Name | Role | Phone | [...] | | | | | Kait Bar[place], | | | | | | [place] [address] | | | +--------+ + + + [...] [facility] - | [address] | [place] [address] | | | IMMUNOGENETICS/TRANS | [address] | | | | [facility] | | | | + + + + + documented in this encounter Visit Diagnoses Not on filedocumented in this encounter"
--- OUTSIDE RECORDS SUMMARY | ~2019-12-22 | XMS | Encounter Summary ---
Demographics + + + | Address | [address] | | | [place] [address] | + + + | Home Phone | | + + + | Preferred Language | Unknown | + + + | Marital Status | | + + + | Mosque Affiliation | 1041 | + + + | Race | Unknown | + + + | Ethnic Group | Unknown | + + + Author + + + | Author | [facility] | | | and [place] | + + + | Organization | [facility] [...] [place], [place] | | | | | [address] | | + + + + + | Misty Boateng | ECON | [address] | | | | | [place], [place] | | | | | [address] | | + + + + + Care Team Providers + +------+ + | Care Program Therapist Name | Role | Phone | + +------+ + PCP | Unavailable | + +------+ + Encounter Details +--------+ + + + + | Date | Type | Department | Care Team | Description | +--------+ + + + + | 03/20/ | Abstract | [facility] | Christine Martinez W, | | | 2016 | | NEPHROLOGY [address] | | | | | [address] | [address] [place] | | | | | [place], [place] | [place] [address] | | | | | [address] | [phone] | | | | | [phone] | | | +--------+ + + + [...] | | | | | [place] [address] | | | | | | [phone] | | | | | | | | +--------+---------+ + + + documented as of this encounter Procedures + +--------+ + + + | Procedure Name | Priori | Date/Time | Associated Diagnosis | Comments | | | ty | | | | + +--------+ + + + | EXTERNAL LAB: ANIVAL | Routin | 03/19/2017 | | Results for this | | | e | | | procedure are in the | | | | | | results section. | + +--------+ + + + | EXTERNAL LAB: | Routin | 03/19/2017 | | Results for this | | GLUCOSE | e | | | procedure are in the | | | | | | results section. | + +--------+ + + + | EXTERNAL LAB: ROSHNI | Routin | 03/19/2017 | | Results for this | | | e | | | procedure are in the | | | | | | results section. | + +--------+ + + + | EXTERNAL LAB: AST | Routin | 03/19/2017 | | Results for this | | | e | | | procedure are in the | | | | | | results section. | + +--------+ + + + | EXTERNAL LAB: | Routin | 03/19/2017 | | Results for this | | ALKALINE PHOSPHATASE | e | | | procedure are in the | | | | | | results section. | + +--------+ + + + | EXTERNAL LAB: | Routin | 03/19/2017 | | Results for this | | BILIRUBIN, TOTAL | e | | | procedure are in the | | | | | | results section. | + +--------+ + + + | EXTERNAL LAB: | Routin | 03/19/2017 | | Results for this | | ALBUMIN | e | | | procedure are in the | | | | | | results section. | + +--------+ + + + | EXTERNAL LAB: | Routin | 03/19/2017 | | Results for this | | PROTEIN, TOTAL | e | | | procedure are in the | | | | | | results section. | + +--------+ + + + | EXTERNAL LAB: | Routin | 03/19/2017 | | Results for this | | PHOSPHORUS | e | | | procedure are in the | | | | | | results section. | + +--------+ + + + | EXTERNAL LAB: | Routin | 03/19/2017 | | Results for this | | CALCIUM | e | | | procedure are in the | | | | | | results section. | + +--------+ + + + | EXTERNAL LAB: CARBON | Routin | 03/19/2017 | | Results for this | | DIOXIDE | e | | | procedure are in the | | | | | | results section. | + +--------+ + + + | EXTERNAL LAB: | Routin | 03/19/2017 | | Results for this | | CHLORIDE | e | | | procedure are in the | | | | | | results section. | + +--------+ + + + | EXTERNAL LAB: | Routin | 03/19/2017 | | Results for this | | POTASSIUM | e | | | procedure are in the | | | | | | results section. | + +--------+ + + + | EXTERNAL LAB: SODIUM | Routin | 03/19/2017 | | Results for this | | | e | | | procedure are in the | | | | | | results section. | + +--------+ + + + | EXTERNAL LAB: | Routin | 03/19/2017 | | Results for this | | URINALYSIS | e | | | procedure are in the | | | | | | results section. | + +--------+ + + + | EXTERNAL LAB: | Routin | 03/19/2017 | | Results for this | | PROTEIN/CREATININE | e | | | procedure are in the | | RATIO | | | | results section. | + +--------+ + + + | EXTERNAL LAB: EGFR | Routin | 03/19/2017 | | Results for this | | | e | | | procedure are in the | | | | | | results section. | + +--------+ + + + | EXTERNAL LAB: | Routin | 03/19/2017 | | Results for this | | CREATININE | e | | | procedure are in the | | | | | | results section. | + +--------+ + + + documented in this encounter Results External Lab: ALT (03/19/2017) + +-------+ + + + | Component | Value | Ref Range | Performed | Pathologist | | | | | At | Signature | + +-------+ + + + | ALT, | 11 | 7 - 52 | EXTERNAL | [...] + +---------+ + + External Lab: AST (03/19/2017) + +--------+ + + + | Component | Value | Ref Range | Performed | Pathologist | | | | | At | Signature | + +--------+ + + + | AST, | 10 (A) | 13 - 39 | EXTERNAL [...] +---------+ + + External Lab: Alkaline Phosphatase (03/19/2017) + +-------+ + + + | Component [...] +---------+ + + External Lab: Bilirubin, Total (03/19/2017) + +-------+ + + + | Component [...] +---------+ + + External Lab: Protein, Total (03/19/2017) + +-------+ + + + | Component | Value | Ref Range | Performed | Pathologist | | | | | At | Signature | + +-------+ + + + | Protein, | 6.9 | 6 - 8 | EXTERNAL | [...] | + +---------+ + + External Lab: Protein/Creatinine Ratio (03/19/2017) + +-------+ + + + | Component | Value | Ref Range | Performed | Pathologist | | | | | At | Signature | + +-------+ + + + | Protein/Cre | 0.2 | 0.0 - 0.2 | | | | atinine | | | | | | Ratio, | | | | | | External | | | | | + +-------+ + + + + + | Specimen | + + | | + + External Lab: ANIVAL (03/19/2017) + +--------+ + + + | Component | Value | Ref Range | Performed | Pathologist | | | | | At | Signature | + +--------+ + + + | ANIVAL, | 27 (A) | 6 - 23 | EXTERNAL [...] + +---------+ + + External Lab: Glucose (03/19/2017) + +---------+ + + + | Component | Value | Ref Range | Performed | Pathologist | | | | | At | Signature | + +---------+ + + + | Glucose, | 111 (A) | 70 - 100 | EXTERNAL [...] + +---------+ + + External Lab: Albumin (03/19/2017) + +-------+ + + + | Component [...] + +---------+ + + External Lab: Phosphorus (03/19/2017) + +-------+ + + + | Component [...] + +---------+ + + External Lab: Calcium (03/19/2017) + +-------+ + + + | Component [...] +---------+ + + External Lab: Carbon Dioxide (03/19/2017) + +-------+ + + + | Component [...] + +---------+ + + External Lab: Chloride (03/19/2017) + +-------+ + + + | Component | Value | Ref Range | Performed | Pathologist | | | | | At | Signature | + +-------+ + + + | Chloride, | 105 | 95 - 112 | EXTERNAL | [...] + +---------+ + + External Lab: Potassium (03/19/2017) + +-------+ + + + | Component [...] + +---------+ + + External Lab: Sodium (03/19/2017) + +-------+ + + + | Component [...] + +---------+ + + External Lab: Urinalysis (03/19/2017) + + + + + + | [...] + + + | UA Specific | 1.011 | | EXTERNAL | | | [place], | | | LAB | | | [...] + +---------+ + + External Lab: eGFR (03/19/2017) + +-------+ + + + | Component | Value | Ref Range | Performed | Pathologist | | | | | At | Signature | + +-------+ + + + | eGFR, | 21 | | EXTERNAL | | | External [...] + +---------+ + + External Lab: Creatinine (03/19/2017) + + + + + + | Component | Value | Ref Range | Performed | Pathologist | | | | | At | Signature | + + + + + + | Creatinine, | 3.19 (A) | 0.6 - 1.35 | EXTERNAL [...]
--- OUTSIDE RECORDS SUMMARY | ~2019-12-22 | XMS | Encounter Summary ---
Demographics + + + | Address | [address] | | | [place] [address] | + + + | Home Phone | | + + + | Preferred Language | Unknown | + + + | Marital Status | | + + + | Zoroastrianism Affiliation | 1041 | + + + [...] [place], [place] | | | | | [address] | | + + + + + | Misty Boateng | ECON | [address] | | | | | [place], [place] | | | | | [address] | | + + + + + Care Team Providers + +------+ + | Care Rod Hanger Name | Role | Phone | + +------+ + PCP | Unavailable | + +------+ + Encounter Details +--------+ + + + + | Date | Type | Department | Care Team | Description | +--------+ + + + + | 06/17/ | Abstract | [facility] | Christine Martinez W, | | | 2015 | | NEPHROLOGY [address] | | | | | [address] | [address] [place] | | | | | [place], [place] | [place] [address] | | | | | [address] | [phone] | | | | | [phone] | | | +--------+ + + + [...] this encounter Progress Notes Mandy Negrete - 06/17/2016 1:52 PM PSTOutside record: Received copy of kidney transpla nt waiting list letter from [facility] that they sent to patient, dos: 06/17/16. Sent to scan.El ectronically signed by Mandy Negrete at 06/17/2016 1:53 PM PSTdocumented in this encounte r Plan of Treatment +--------+---------+ + + + | Date | Type | Specialty | Care Team | Description | +--------+---------+ + + + | 03/20/ | Office | Nephrology | Christine Martinez, | | | 2019 | Visit | | MD Monica Manzanares | | | | | | [address] | | | | | | [place] [address] | | | | | | [phone] | | | | | | | | +--------+---------+ + + + documented as of this encounter Visit Diagnoses Not on filedocumented in this encounter"
--- OUTSIDE RECORDS SUMMARY | ~2019-12-22 | XMS | Encounter Summary ---
Demographics + + + | Address | [address] | | | [place] [address] | + + + | Home Phone | | + + + | Preferred Language | Unknown | + + + | Marital Status | | + + + | Yazidi Affiliation | 1041 | + + + | Race | Unknown | + + + | Ethnic Group | Unknown | + + + Author + + + | Author | [facility] | | | and [place] | + + + | Organization | [facility] | | | and [place] | + + + | Address | Unknown | + + + | Phone | Unavailable | + + + Support + + + + + | Name | Relationship | Address | Phone | + + + + + | Ryan Oneill | ECON | [place], [place] | | | | | [address] | | + + + + + | Misty Boateng | ECON | [address] | | | | | [place], [place] | | | | | [address] | | + + + + + Care Team Providers + +------+ + | Care Tube Former Operator Name | Role | Phone | [...] | NEPHROLOGY [address] | disease, stage V | | | | [address] | [address] [place] | ([facility]) | | | | [place], [place] | [place] [address] | | | | | [address] | [phone] | | | | | [phone] | | | +--------+ + + + [...] | | | | | [place] [address] | | | | | | [phone] | | | | | | | | +--------+---------+ + + + documented as of this encounter Visit Diagnoses + + | Diagnosis | + + | Chronic kidney disease, stage V (HCC) Chronic kidney disease, Stage V | + + documented in this encounter"
--- OUTSIDE RECORDS SUMMARY | ~2019-12-22 | XMS | Encounter Summary ---
Demographics + + + | Address | [address] [place] [address] | | | [place] [address] | + + + | Home Phone | | + + + | Preferred Language | Unknown | + + + | Marital Status | | + + + | Yazidi Affiliation | CHR | + + + [...] Providers + +------+ + | Care Certified Pharmacy Tech Name | Role | Phone | + +------+ + | Hai Holman MD | PCP | | + +------+ + Reason for Visit + + + | Reason | Comments | + + + | Waitlist | donor add | + + + Encounter Details +--------+ + + + + | Date | Type | Department | Care Team | Description | +--------+ + + + + | 07/17/ | Telephone | Clinical | Thi Aden, | TAMIKO Waitlist (donor | | 2016 | | Transplant Services | RN [address] | add) | | | | [address] [facility] [address] | [address] | | | | | [place], | [place], [place] | | | | | [place] [address] | [address] | | | | | [phone] | | | +--------+ + + + [...]
--- OUTSIDE RECORDS SUMMARY | ~2019-12-22 | XMS | Encounter Summary ---
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 Encourage the adequate use of an incentive spirometer. AUGIE MASON MD 04/10/2014 Dick Lemus MD - 04/10/2014 8:10 AM PDT Progress Notes by Dick Hines MD at 04/10/14 08 Author: Dick Hines MD Service: (none) Author Type: Physician Filed: 04/10/14813 Date of Service: 04/10/14809 Status: Signed Supervisor [employer]: Dick Hines MD (Physician) [facility] Service: Orthopedic Surgery Progress Note Hospital Day: LOS: 2 days Post-Op Day: 2 Days Post-Op SUBJECTIVE Patient Summary: Pt continues to have pain on ulnar border of the wrist. Improving si nce yesterday. Increased pain with activity. Frustrated by lack of progress with left hip Events Overnight: None Scheduled Medications acetylcysteine 600 mg Oral BID ascorbic acid 500 mg Oral Daily cholecalciferol 2,000 Units Oral Daily docusate sodium 100 mg Oral BID OxyCODONE 10 mg Oral Q12H GUANACO Continuous Infusions sodium chloride (IV) PRN Medications acetaminophen, acetaminophen, bisacodyl, calcium carbonate, diphenhydrAMINE, diphenhydrAMIN E, diphenhydrAMINE, HYDROmorphone, HYDROmorphone, magnesium hydroxide, ondansetron, ondanset chiara, oxyCODONE, oxyCODONE, oxyCODONE, polyethylene glycol, sodium chloride (PF), zolpidem OBJECTIVE Vital Signs: BP 137/77 | Pulse 95 | Temp(Src) 97.6 F (36.4 C) (Oral) | Resp 20 | Ht 1.829 m (6') | W t 92.987 kg (205 lb) | BMI 27.8 kg/m2 | SpO2 92% {EXTENDEDVITALS:28270 Physical Exam Nursing note and vitals reviewed. Ortho Exam RUE Fingers pink, motor and sensation intact Forearm compartments are soft LLE Bruising noted Neuro intact with brisk cap refill distally DATA CBC: Lab Results Component Value Date WBC 11.7* 04/10/2014 RBC 3.56* 04/10/2014 HGB 11.1* 04/10/2014 HCT 33.9* 04/10/2014 MCV 95.2 04/10/2014 MCH 31.3 04/10/2014 MCHC 32.9 04/10/2014 RDW 46.4 04/10/2014 PLT 167 04/10/2014 MPV 7.2 04/10/2014 DIFFTYPE AUTOMATED 04/10/2014 PROBLEM LIST Active Problems: Hematuria, unspecified Fractured kidney Hypokalemia Anemia, unspecified Renal failure (ARF), acute on chronic ASSESSMENT & PLAN Toe touch weight bearing to left leg, gentle pressue on right forearm for platform walker, do NOT put full weight on right arm, this is as the patient tolerates for mobilization; appr eciate nephrology recs Disposition: admitted Code Status: Full Code Dick Hines MD 04/10/2014 nes Leigh, PT - 04/10/2014 7:50 AM PDT Therapy Progress Note by Ines Aguiar PT at 04/10/14 0750 Author: Ines Aguiar PT Service: (none) Author Type: Physical Therapist Filed: 04/10/14 1012 Date of Service: 04/10/14 0750 Status: Signed Supervisor [employer]: Ines Aguiar PT (Physical Therapist) 04/10/14 0750 PT Last Visit PT Received On 04/10/14 Reason for Treatment Other (comment) (s/p wrist and finger ORIF, carpal tunnel release) Requires PT Follow Up Yes Follow up PT Only? No Assistance Required 1 person Rn Integrated Needed No Precautions LE Precaution(s) LLE Precautions/WB LLE (TTWB) UE Precaution(s) RUE Precautions/WB RUE NWB Other Precautions Fall risk Other Comments Comments Pt was supine in bed with in room. Pt reporting he has a fractured hip and th at is us unable to move it or put any weight through it directly. Pt is able to perform bed exercises and demonstrating full hip ROM with heel slides. Pt able to transfer in and out of bed with supervision Pt able to ambulate with one crutch, however ambulation is very painfu l for pt which he expressed though yelling and choice word. Ended session sitting in chair which he reports helped his back feel better. Pt tolerated ambulating with care however pt i s certain that he has a hip fracture however MRI and X-ray do not show any sore of fracture just a labral tear. Pt will need increased education on ambulation with crutch and stair tra ining prior to DC. Cognition Overall Cognitive Status WFL Orientation Level Oriented Bed Mobility Supine to Sit Supervision Scooting Supervision Transfers Sit to/from Stand Standby assist Bed to/from Chair Standby assist Mobility Weight Bearing Status NWB RUE (TTWB LLE) Ambulation Assistance Minimal assist Maximal Ambulation Distance (feet) 10 Total Ambulation Distance (feet) 10 Distance limited by? Patient's ability (Pain) Pattern Step to Assistive Device Crutches axillary (One crutch) Supine Supine-Exercise Type Ankle pumps;Quad sets;Short arc quads;Heel slides Modalities Modalities Other therapy Other Therapy Pt educated on weight barring status, as well as exercise in bed. Activity Tolerance Activity Tolerance Patient limited by pain Nurse Made Aware RN notified Safety Devices Safety Devices in Place (Call light in reach, in room ) Plan Treatment/Interventions Continue per Primary PT POC Progress Slow progress, decreased activity tolerance Recommendation Recommendations Home with 24 hr supervision/assist Equipment Recommended Crutches axillary;Shower chair with back Requires PT Follow Up Yes Recommendation Comments Pt performing transfers well however his pain is his limiting facto r. Pt needs supervision upon return home due to increased needs with meal prep, and function al mobility. Pts significant other is able to help and reports being able to take some time off work to stay home with pt. Once pain in better controlled and pts weight barring status on LLE changes pt should be able to progress as well as ambulate household distances. Pt mandeep l also benefit from OT evaluation. Wu Salgado ARNP - 04/10/2014 1:10 AM PDTFormatting of this note might be different from the origin al. Progress Notes by Galo Johnston NP at 04/10/14 011 Author: Galo Johnston NP Service: (none) Author Type: Registered Nurse Filed: 04/10/14111 Date of Service: 04/10/14109 Status: Signed [employer]visor [employer]: Galo Johnston NP (Nurse Practitioner) I received report from Gracie ANTON and am assuming care. Pt states he is in a moderate amount of pain. Medicated with ordered dilaudid. Will continue to monitor. onversion Prado saction, Provider Unknown - 04/09/2014 6:21 PM PDTFormatting of this note might be differen t from the original. Progress Notes by Nicole Huizar RN at 04/09/141820 Author: Nicole Huizar RN Service: (none) Author Type: Registered Nurse Filed: 04/09/141824 Date of Service: 04/09/141820 Status: Signed Supervisor [employer]: Nicole Huizar RN (Registered Nurse) Pt c/o increased pain right upper extremity since physical therapy this afternoon. Fingers are warm but do appear more pale then this morning. Cap refill is 3 seconds. Pt able to move and extend fingers. Brachial pulse strong. Dr. Hines notified. Advised to continue to eleva te and ice. Will continue to monitor, Misty Pollard, PT - 04/09/2014 11:35 AM PDTFormatting of this note might be different from the o riginal. Therapy Progress Note by Misty Mejia PT at 04/09/14 1245 Author: Misty Mejia PT Service: (none) Author Type: Physical Therapist Filed: 04/09/14 3075 Date of Service: 04/09/14 1135 Status: Signed Super[employer]: Misty Mejia PT (Physical Therapist) 04/09/14 7316 PT Last Visit PT Received On 04/09/14 Reason for Treatment Other (comment) (s/p wrist and finger ORIF, carpal tunnel release) Requires PT Follow Up Yes Follow up PT Only? Yes (recommendation regarding to equipment and d/c plan) PT Eval/Reassessment Date 04/09/14 Assistance Required 1 person;2 person Rn Integrated Needed No Precautions LE Precaution(s) LLE Precautions/WB LLE (TTWB) UE Precaution(s) RUE Precautions/WB RUE NWB Other Precautions fall risk Plan Treatment/Interventions Balance training;Bed mobility training;Provide HEP;Therapeutic exer cise;Transfer training;Monitor vital signs;Family training;Gait training PT Frequency 5-7x/wk;Once per day;Twice a day Care Duration (# of days) 7 # of days Home Environment Type of Home Home one story Home Exterior Layout 1-3 steps (2 steps to enter) Home Interior Layout Lives on main level with bedroom/bathroom (TV room (has to take 1 step)) Bathroom Shower/Tub Tub/shower unit Bathroom Toilet Standard Bathroom Equipment Grab bars in shower/bath Bathroom Accessibility Accessible via walker Home Equipment None Recommendation Recommendations Defer at this time Equipment Recommended (TBD) Prior Function Level of [place] Driving in community;Independent with functional mobility;Independent with ADLs;Independent with IADLs Lives With Significant other;Adult child(rose) (SO works 8-5, but mandeep be able to take time off from work) Employment Employed RUE Assessment RUE Assessment X (R forearm in a cast) LUE Assessment LUE Assessment WFL RLE Assessment RLE Assessment WFL LLE Assessment LLE Assessment X (limited L hip ROM due to pain.) Cognition Overall Cognitive Status WFL Orientation Level Oriented Sensation Light Touch (Reports tingling sensation in R UE, back, ) Assessment of Patient Status Assessment of Patient Status Decreased functional mobility;Pain Prognosis Should progress with skilled therapy intervention 04/09/14 1135 PT Last Visit PT Received On 04/09/14 Reason for Treatment Other (comment) (s/p wrist and finger ORIF, carpal tunnel release) Requires PT Follow Up Yes Follow up PT Only? Yes (recommendation regarding to equipment and d/c plan) PT Eval/Reassessment Date 04/09/14 Assistance Required 1 person;2 person Rn Integrated Needed No Precautions LE Precaution(s) LLE Precautions/WB LLE (TTWB) UE Precaution(s) RUE Precautions/WB RUE NWB Other Precautions fall risk Other Comments Comments Pt is s/p wrist and finger ORIF, carpal tunnel release, small nondisplaced sacral fracture. Upon PT arrival, pt supine in bed with HOB elevated. Family present in room. Pt a greeable to PT. Pt requested for pain medication prior to performing activities. RN aware an d pain medication was given by RN.. Dayami -modA for supine to sit, R UE was placed in a slin g. SBA for scooting at EOB. pt c/o significant pain with L LE movement especially at the hi p. Dayami for STS at bedside. Pt stood with FWW and able to take small step while following TT WB. PT assisted R side of the walker as pt arm in a sling. pt transferred from bed to chair at bedside with Dayami x1. Pt experienced significant pain with movement. Pt tried to ambulate with FWW with R UE platform. Pt experienced of significant pain in R UE and L LE with ambul ation. PT switched to high platform walker. Pt experienced significant pain and had difficul ty moving with high platform walker. PT And RN assisted pt back to chair with PT provided martinez pport at the R axilla. Will need ongoing assessment and try out different equipments to see which will be best for pt at the next visit. Will also need to make d/c and equipments recom mendation at the next visit. At the end of the session, pt seated in a chair with family pre sent in room. SLOANE sage. in room with pt. vital signs: at rest: 94%RA, HR 79, 124/67 Cognition Overall Cognitive Status WFL Orientation Level Oriented Bed Mobility Supine to Sit Min assist (1 LE OOB);Mod assist (BLEs OOB or trunk to upright);x 1 person Scooting Standby assist Transfers Sit to/from Stand Minimal assist (steadying/contact guard);Standby assist Bed to/from Chair Minimal assist (steadying/contact guard);x 1 person Mobility Weight Bearing Status NWB RUE;WBAT RLE (TTWB on L LE) Ambulation Assistance Minimal assist;Moderate assist;X1;X2 Maximal Ambulation Distance (feet) 5 ft Total Ambulation Distance (feet) 5ft Distance limited by? Patient's ability Pattern Step to;Swing to;Decreased kathy Assistive Device Walker front wheeled;Walker high platform (FWW with R UE platform, ) Balance Balance Yes Static Sitting Balance Static Sitting-Balance Support No upper extremity support;Feet supported Static Sitting-Level of Assistance Independent Static Sitting-Comment/Duration No LOB or unsteadiness noted when sitting at EOB Static Standing Balance Static Standing-Balance Support No upper extremity support Static Standing-Level of Assistance Standby assist Static Standing-Comment/Duration Pt placed more weight on R LE, stood at bedside with SBA Modalities Modalities Other therapy Other Therapy Educated pt on his WB restricitons and mobility technique Activity Tolerance Activity Tolerance Patient limited by pain Nurse Made Aware RN aware Plan Treatment/Interventions Balance training;Bed mobility training;Provide HEP;Therapeutic exer cise;Transfer training;Monitor vital signs;Family training;Gait training PT Frequency 5-7x/wk;Once per day;Twice a day Care Duration (# of days) 7 # of days Recommendation Recommendations Defer at this time Equipment Recommended (TBD) Dick Lemus MD - 04/09/2014 9:20 AM PDT Progress Notes by Dick Hines MD at 04/09/14919 Author: Dick Hines MD Service: (none) Author Type: Physician Filed: 04/09/14925 Date of Service: 04/09/14919 Status: Addendum Supervisor [employer]: Dick Hines MD (Physician) Related Notes: Original Note by Dick Hines MD (Physician) filed at 04/09/14924 [facility] Service: Orthopedic Surgery Progress Note Hospital Day: LOS: 1 day Post-Op Day: 1 Day Post-Op SUBJECTIVE Patient Summary: Has had some hip left secondary to contusion sustained during MCA. P ain tolerable, no signs of compartment syndrome. Events Overnight: Hip pain, left Scheduled Medications ascorbic acid 500 mg Oral Daily ceFAZolin 1 g Intravenous Q8H cholecalciferol 2,000 Units Oral Daily docusate sodium 100 mg Oral BID OxyCODONE 10 mg Oral Q12H GUANACO Continuous Infusions dextrose 5 % and 0.45 % NaCl with KCl 20 mEq 110 mL/hr at 04/09/14 0122 PRN Medications acetaminophen, acetaminophen, bisacodyl, calcium carbonate, diphenhydrAMINE, diphenhydrAMIN E, HYDROmorphone, HYDROmorphone, magnesium hydroxide, ondansetron, ondansetron, oxyCODONE, o xyCODONE, oxyCODONE, polyethylene glycol, sodium chloride (PF), zolpidem OBJECTIVE Vital Signs: BP 131/63 | Pulse 98 | Temp(Src) 98.7 F (37.1 C) (Oral) | Resp 16 | Ht 1.829 m (6') | W t 92.987 kg (205 lb) | BMI 27.8 kg/m2 | SpO2 94% {EXTENDEDVITALS:51830 Physical Exam Nursing note and vitals reviewed. Ortho Exam RUE Sensation grossly intact Motor weak but intact No signs of compartment syndrome Brisk cap refill LLE Bruising noted lateral thigh 2+ pulses Motor and sensation intact MRI reviewed, small nondisplaced sacral fracture DATA CBC: Lab Results Component Value Date WBC 19.5* 04/08/2014 RBC 4.17 04/08/2014 HGB 13.4 04/08/2014 HCT 39.0 04/08/2014 MCV 93.5 04/08/2014 MCH 32.1 04/08/2014 MCHC 34.3 04/08/2014 RDW 44.6 04/08/2014 PLT 205 04/08/2014 MPV 7.0 04/08/2014 DIFFTYPE AUTOMATED 04/08/2014 PROBLEM LIST Active Problems: Hematuria, unspecified Fractured kidney ARF (acute renal failure) ASSESSMENT & PLAN PT for toe touchweightbearing to the left leg; Ancef for 24hours postop; Call into nephrolo gy regarding kidneysm urology consult pending REcommend platform 4 wheel walker Disposition: admitted Code Status: Full Code Dick Hines MD 04/09/2014 isty Johnson PT - 04/09/2014 7:13 AM PDT Therapy Progress Note by Misty Mejia PT at 04/09/14712 Author: Misty Mejia PT Service: (none) Author Type: Physical Therapist Filed: 04/09/14720 Date of Service: 04/09/14712 Status: Signed Supervisor [employer]: Misty Mejia PT (Physical Therapist) 04/09/14712 PT Last Visit PT Received On 04/09/14 Reason for Treatment Other (comment) (s/p wrist and finger ORIF, carpal tunnel release) Requires PT Follow Up On hold Other Comments Comments Awaiting MRI result for L hip at this time as pt has difficulty WB per Dr. Hines's note. Will need to clarify WB status if there is non-displaced fracture. onversion Transacti on, Provider Unknown - 04/09/2014 2:35 AM PDTFormatting of this note might be different fro m the original. Progress Notes by Marni Ventura RPH at 04/09/14234 Author: Marni Ventura RPH Service: (none) Author Type: Pharmacist Filed: 04/09/14234 Date of Service: 04/09/14234 Status: Signed Supervisor [employer]: Marni Ventura RPH (Pharmacist) Clinical Pharmacy Note: [facility] 43 year old male Height: 182.9 cm Weight: 93 kg Serum Creatinine: 2.2 mg/dL Estimated creatinine clearance - Cockcroft-Gault CrCl: 52 mL/min. Pharmacy dosing for renal function per Dr. Hines. Currently there are no medications needing to be adjusted. Pharmacy will continue to monito r for changes in medication orders and in renal function and adjust accordingly per P [employer] T co mmittee. Marni Ventura, Gurvinder 04/09/2014 2:35 AM Pamela painter in this encounter Plan of [...] | | | | | [place] [address] | | | | | | [phone] | | | | | | | | +--------+---------+ + + + documented as of this encounter Procedures + +--------+ + + + | Procedure Name | Priori | Date/Time | Associated Diagnosis | Comments | | | ty | | | | + +--------+ + + + | XR SHOULDER RIGHT 2 | Routin | 04/12/2014 | | Results for this | | + VW | e | 11:32 AM | | procedure are in the | | | | PDT | | results section. | + +--------+ + + + | BASIC METABOLIC | Routin | 04/12/2014 | | Results for this | | PANEL | e | 4:10 AM | | procedure are in the | | | | PDT | | results section. | + +--------+ + + + | COMPREHENSIVE | Routin | 04/11/2014 | | Results for this | | METABOLIC PANEL | e | 6:00 AM | | procedure are in the | | | | PDT | | results section. | + +--------+ + + + | EXTERNAL LAB: CBC | Routin | 04/10/2014 | | Results for this | | | e | 5:19 AM | | procedure are in the | | | | PDT | | results section. | + +--------+ + + + | IRON AND IRON | Routin | 04/10/2014 | | Results for this | | BINDING CAPACITY | e | 5:19 AM | | procedure are in the | | | | PDT | | results section. | + +--------+ + + + | PHOSPHORUS | Routin | 04/10/2014 | | Results for this | | | e | 5:19 AM | | procedure are in the | | | | PDT | | results section. | + +--------+ + + + | MAGNESIUM | Routin | 04/10/2014 | | Results for this | | | e | 5:19 AM | | procedure are in the | | | | PDT | | results section. | + +--------+ + + + | FERRITIN | Routin | 04/10/2014 | | Results for this | | | e | 5:19 AM | | procedure are in the | | | | PDT | | results section. | + +--------+ + + + | COMPREHENSIVE | Routin | 04/10/2014 | | Results for this | | METABOLIC PANEL | e | 5:19 AM | | procedure are in the | | | | PDT | | results section. | + +--------+ + + + | EOSINOPHIL SMEAR, | Routin | 04/09/2014 | | Results for this | | URINE | e | 4:28 PM | | procedure are in the | | | | PDT | | results section. | + +--------+ + + + | SODIUM, URINE, | Routin | 04/09/2014 | | Results for this | | RANDOM | e | 4:28 PM | | procedure are in the | | | | PDT | | results section. | + +--------+ + + + | EXTERNAL LAB: CBC | Routin | 04/09/2014 | | Results for this | | | e | 9:39 AM | | procedure are in the | | | | PDT | | results section. | + +--------+ + + + | COMPREHENSIVE | Routin | 04/09/2014 | | Results for this | | METABOLIC PANEL | e | 9:39 AM | | procedure are in the | | | | PDT | | results section. | + +--------+ + + + | MRI HIP LEFT WO | Routin | 04/09/2014 | | Results for this | | CONTRAST | e | 8:25 AM | | procedure are in the | | | | PDT | | results section. | + +--------+ + + + | DRUGS OF ABUSE | Routin | 04/08/2014 | | Results for this | | SCREEN, URINE (H) | e | 7:54 PM | | procedure are in the | | | | PDT | | results section. | + +--------+ + + + | URINALYSIS, | Routin | 04/08/2014 | | Results for this | | MICROSCOPIC ONLY | e | 7:54 PM | | procedure are in the | | | | PDT | | results section. | + +--------+ + + + | CULTURE, URINE | STAT | 04/08/2014 | | Results for this | | | | 7:54 PM | | procedure are in the | | | | PDT | | results section. | + +--------+ + + + | XR ELBOW RIGHT 1 VW | Routin | 04/08/2014 | | Results for this | | LIMITED | e | 7:22 PM | | procedure are in the | | | | PDT | | results section. | + +--------+ + + + | XR WRIST RIGHT 1 VW | Routin | 04/08/2014 | | Results for this | | LIMITED | e | 7:22 PM | | procedure are in the | | | | PDT | | results section. | + +--------+ + + + | CT HEAD CERVICAL | Routin | 04/08/2014 | | Results for this | | SPINE WO CONTRAST | e | 7:08 PM | | procedure are in the | | CHEST ABDOMEN PELVIS | | PDT | | results section. | | W CONTRAST | | | | | + +--------+ + + + | XR CHEST 1 VIEW | Routin | 04/08/2014 | | Results for this | | | e | 6:20 PM | | procedure are in the | | | | PDT | | results section. | + +--------+ + + + | XR PELVIS 1 OR 2 VW | Routin | 04/08/2014 | | Results for this | | | e | 6:20 PM | | procedure are in the | | | | PDT | | results section. | + +--------+ + + + | ECG 12 LEAD | Routin | 04/08/2014 | | Results for this | | | e | 6:11 PM | | procedure are in the | | | | PDT | | results section. | + +--------+ + + + | EXTERNAL LAB: CBC | Routin | 04/08/2014 | | Results for this | | | e | 6:10 PM | | procedure are in the | | | | PDT | | results section. | + +--------+ + + + | PTT | Routin | 04/08/2014 | | Results for this | | | e | 6:10 PM | | procedure are in the | | | | PDT | | results section. | + +--------+ + + + | PROTIME INR | Routin | 04/08/2014 | | Results for this | | | e | 6:10 PM | | procedure are in the | | | | PDT | | results section. | + +--------+ + + + | LIPASE | Routin | 04/08/2014 | | Results for this | | | e | 6:10 PM | | procedure are in the | | | | PDT | | results section. | + +--------+ + + + | AMYLASE | Routin | 04/08/2014 | | Results for this | | | e | 6:10 PM | | procedure are in the | | | | PDT | | results section. | + +--------+ + + + | ALCOHOL | Routin | 04/08/2014 | | Results for this | | | e | 6:10 PM | | procedure are in the | | | | PDT | | results section. | + +--------+ + + + | COMPREHENSIVE | Routin | 04/08/2014 | | Results for this | | METABOLIC PANEL | e | 6:10 PM | | procedure are in the | | | | PDT | | results section. | + +--------+ + + + documented in this encounter Results XR Shoulder Right 2 + Vw (04/12/2014 11:32 AM PDT) + + | Specimen | + + | | + + + + + | Impressions | Performed At | + + + | FINDINGS/ IMPRESSION: No acute fracture or dislocation. No bone, | | | joint or soft tissue abnormality. | | + + + + + + | Narrative | Performed At | + + + | [facility] 1970 XR SHOULDER LIMITED RIGHT 04/12/2014 11:32 | | | AM INDICATION: Pain COMPARISON: None TECHNIQUE: Right | | | shoulder series, 2 views | | + + + + + | Procedure Note | + + | Kelvin Larsen Conversion - 03/04/2019 8:42 PM PDT [facility] | | 1970 | | XR SHOULDER LIMITED RIGHT | | 04/12/2014 11:32 AM | | | | INDICATION: Pain | | | | COMPARISON: None | | | | TECHNIQUE: Right shoulder series, 2 views | | | | IMPRESSION: | | FINDINGS/ IMPRESSION: No acute fracture or dislocation. | | | | No bone, joint or soft tissue abnormality. | | | | | + + Basic Metabolic Panel (04/12/2014 4:10 AM PDT) + + + + + + | Component | Value | Ref Range | Performed | Pathologist | | | | | At | Signature | + + + + + + | Na | 138Comment: Testing | 135 - 143 | EXTERNAL | | | | performed at [facility], [address] | mmol/L | LAB | | | | [address], | | | | | | [place] [address] | | | | + + + + + + | K | 3.6Comment: Testing | 3.5 - 4.9 | EXTERNAL | | | | performed at [facility], [address] | mmol/L | LAB | | | | [address], | | | | | | [place] [address] | | | | + + + + + + | Cl | 104Comment: Testing | 99 - 109 mmol/L | EXTERNAL | | | | performed at [facility], [address] | | LAB | | | | [address], | | | | | | [place] [address] | | | | + + + + + + | CO2 | 31Comment: Testing | 23 - 32 mmol/L | EXTERNAL | | | | performed at [facility], [address] | | LAB | | | | [address], | | | | | | [place] [address] | | | | + + + + + + | Anion Gap | 7Comment: Testing | 5 - 20 mmol/L | EXTERNAL | | | | performed at [facility], [address] | | LAB | | | | [address], | | | | | | [place] [place] [address] | | | | + + + + + + | Glucose, | 98Comment: Testing | 65 - 99 mg/dL | EXTERNAL | | | Fasting | performed at [facility], [address] | | LAB | | | | [address], | | | | | | [place] [address] | | | | + + + + + + | BUN | 18Comment: Testing | 8 - 25 mg/dL | EXTERNAL | | | | performed at [facility], [address] | | LAB | | | | [address], | | | | | | [place] [address] | | | | + + + + + + | Creatinine | 2.05 (H)Comment: Testing | 0.70 - 1.30 | EXTERNAL | | | | performed at [facility], [address] | mg/dL | LAB | | | | [address], | | | | | | [place] [address] | | | | + + + + + + | BUN/Creatin | 9Comment: Testing | | EXTERNAL | | | ine Ratio | performed at [facility], [address] | | LAB | | | | [address], | | | | | | [place] [address] | | | | + + + + + + | Calcium | 8.5Comment: Testing | 8.5 - 10.2 | EXTERNAL | | | | performed at [facility], [address] | mg/dL | LAB | | | | [address], | | | | | | [place] [address] | | | | + + + + + + | Estimated | 38 (L)Comment: GFR <60: | mL/min/1.73m2 | EXTERNAL | | | GFR | CHRONIC KIDNEY DISEASE, | | LAB | | | | IF FOUND OVER A 3 MONTH | | | | | | PERIOD.GFR <15: KIDNEY | | | | | | FAILURE.FOR | | | | | | AMERICANS, MULTIPLY THE | | | | | | CALCULATED GFR BY | | | | | | 1.210.Testing performed | | | | | | at [facility], [address] | | | | | | [address], | | | | | | [place] [address] | | | | + + + [...] + +---------+ + + Comprehensive Metabolic Panel (04/11/2014 6:00 AM PDT) + + + + + + | Component | Value | Ref Range | Performed | Pathologist | | | | | At | Signature | + + + + + + | Na | 143Comment: Testing | 135 - 143 | EXTERNAL | | | | performed at [facility];[address] | mmol/L | LAB | | | | [address];[place] | | | | | | [address] | | | | + + + + + + | K | 3.6Comment: Testing | 3.5 - 4.9 | EXTERNAL | | | | performed at [facility];[address] | mmol/L | LAB | | | | [address];[place] | | | | | | [address] | | | | + + + + + + | Cl | 110 (H)Comment: Testing | 99 - 109 mmol/L | EXTERNAL | | | | performed at [facility];[address] | | LAB | | | | [address];[place] | | | | | | [address] | | | | + + + + + + | CO2 | 28Comment: Testing | 23 - 32 mmol/L | EXTERNAL | | | | performed at [facility];[address] | | LAB | | | | [address];[place] | | | | | | [address] | | | | + + + + + + | Anion Gap | 8Comment: Testing | 5 - 20 mmol/L | EXTERNAL | | | | performed at [facility];[address] | | LAB | | | | [address];[place] | | | | | | [address] | | | | + + + + + + | Glucose, | 95Comment: Testing | 65 - 99 mg/dL | EXTERNAL | | | Fasting | performed at [facility];[address] | | LAB | | | | [address];[place] | | | | | | [address] | | | | + + + + + + | BUN | 16Comment: Testing | 8 - 25 mg/dL | EXTERNAL | | | | performed at [facility];[address] | | LAB | | | | [address];[place] | | | | | | [address] | | | | + + + + + + | Creatinine | 1.90 (H)Comment: Testing | 0.70 - 1.30 | EXTERNAL | | | | performed at [facility];[address] | mg/dL | LAB | | | | [address];[place] | | | | | | [address] | | | | + + + + + + | BUN/Creatin | 8Comment: Testing | | EXTERNAL | | | ine Ratio | performed at [facility];[address] | | LAB | | | | [address];[place] | | | | | | [address] | | | | + + + + + + | Calcium | 7.9 (L)Comment: Testing | 8.5 - 10.2 | EXTERNAL | | | | performed at [facility];[address] | mg/dL | LAB | | | | [address];[place] | | | | | | [address] | | | | + + + + + + | Protein, | 5.9 (L)Comment: Testing | 6.3 - 8.2 g/dL | EXTERNAL | | | Total | performed at [facility];[address] | | LAB | | | | [address];[place] | | | | | | [address] | | | | + + + + + + | Albumin | 3.1 (L)Comment: Testing | 3.6 - 5.0 g/dL | EXTERNAL | | | | performed at [facility];[address] | | LAB | | | | [address];[place] | | | | | | [address] | | | | + + + + + + | Globulin | 2.8Comment: Testing | 1.3 - 4.9 g/dL | EXTERNAL | | | | performed at [facility];[address] | | LAB | | | | [address];[place] | | | | | | [address] | | | | + + + + + + | A/G Ratio | 1.1Comment: Testing | 1.0 - 2.4 | EXTERNAL | | | | performed at [facility];[address] | | LAB | | | | [address];[place] | | | | | | [address] | | | | + + + + + + | Bilirubin | 0.5Comment: Testing | 0.1 - 1.5 mg/dL | EXTERNAL | | | Total | performed at [facility];[address] | | LAB | | | | [address];[place] | | | | | | [address] | | | | + + + + + + | ALP, | 42Comment: Testing | 35 - 115 U/L | EXTERNAL | | | External | performed at [facility];[address] | | LAB | | | | [address];[place] | | | | | | [address] | | | | + + + + + + | AST | 28Comment: Testing | 10 - 45 U/L | EXTERNAL | | | | performed at [facility];[address] | | LAB | | | | [address];[place] | | | | | | [address] | | | | + + + + + + | ALT | 20Comment: Testing | 10 - 65 U/L | EXTERNAL | | | | performed at [facility];[address] | | LAB | | | | [address];[place] | | | | | | [address] | | | | + + + + + + | Estimated | 42 (L)Comment: GFR <60: | mL/min/1.73m2 | EXTERNAL | | | GFR | CHRONIC KIDNEY DISEASE, | | LAB | | | | IF FOUND OVER A 3 MONTH | | | | | | PERIOD.GFR <15: KIDNEY | | | | | | FAILURE.FOR | | | | | | AMERICANS, MULTIPLY THE | | | | | | CALCULATED GFR BY | | | | | | 1.210.Testing performed | | | | | | at [facility];[address] [place] [address] | | | | | | [facility];[place] [address] | | | | + + + + + + + + | Specimen | + + | Blood specimen | | (specimen) | + + + +---------+ + + | Performing | Address | City/State/Zipcode | Phone Number | | Organization | | | | + +---------+ + + | EXTERNAL LAB | | | | + +---------+ + + Iron and Iron Binding Capacity (04/10/2014 5:19 AM PDT) + + + + + + | Component | Value | Ref Range | Performed | Pathologist | | | | | At | Signature | + + + + + + | Iron | 31 (L)Comment: Testing | 45 - 190 ug/dL | EXTERNAL | | | | performed at [facility], [address] | | LAB | | | | [address], | | | | | | [place] [address] | | | | + + + + + + | TIBC | 268Comment: Testing | 250 - 450 ug/dL | EXTERNAL | | | | performed at [facility], [address] | | LAB | | | | [address], | | | | | | [place] [address] | | | | + + + + + + | Iron | 12 (L)Comment: Testing | 20 - 50 % | EXTERNAL | | | Saturation | performed at [facility], [address] | | LAB | | | | [address], | | | | | | [place] [address] | | | | + + + [...] + +---------+ + + External Lab: CBC (04/10/2014 5:19 AM PDT) + + + + + + | Component | Value | Ref Range | Performed | Pathologist | | | | | At | Signature | + + + + + + | WBC | 11.7 (H)Comment: Testing | 3.8 - 11.0 K/uL | EXTERNAL | | | | performed at [facility], [address] | | LAB | | | | [address], | | | | | | [place] [address] | | | | + + + + + + | Red Blood | 3.56 (L)Comment: Testing | 4.20 - 5.70 | EXTERNAL | | | Cells | performed at [facility], [address] | M/uL | LAB | | | Counted | [address], | | | | | | [place] [address] | | | | + + + + + + | Hemoglobin | 11.1 (L)Comment: Testing | 13.2 - 17.0 | EXTERNAL | | | | performed at [facility], [address] | g/dL | LAB | | | | [address], | | | | | | [place] [address] | | | | + + + + + + | Hematocrit, | 33.9 (L)Comment: Testing | 39.0 - 50.0 % | EXTERNAL | | | POC | performed at [facility], [address] | | LAB | | | | [address], | | | | | | [place] [address] | | | | + + + + + + | MCV | 95.2Comment: Testing | 80.0 - 100.0 fl | EXTERNAL | | | | performed at [facility], [address] | | LAB | | | | [address], | | | | | | [place] [address] | | | | + + + + + + | MCH | 31.3Comment: Testing | 27.0 - 34.0 pg | EXTERNAL | | | | performed at [facility], [address] | | LAB | | | | [address], | | | | | | [place] [address] | | | | + + + + + + | MCHC | 32.9Comment: Testing | 32.0 - 35.5 | EXTERNAL | | | | performed at [facility], [address] | g/dL | LAB | | | | [address], | | | | | | [place] [address] | | | | + + + + + + | RDW-CV | 46.4Comment: Testing | 37 - 53 fl | EXTERNAL | | | | performed at [facility], [address] | | LAB | | | | [address], | | | | | | [place] [address] | | | | + + + + + + | Platelet | 167Comment: Testing | 150 - 400 K/uL | EXTERNAL | | | Count | performed at [facility], [address] | | LAB | | | Plasma | [address], | | | | | | [place] [address] | | | | + + + + + + | MPV | 7.2Comment: Testing | fl | EXTERNAL | | | | performed at [facility], [address] | | LAB | | | | [address], | | | | | | [place] [address] | | | | + + + + + + | Differentia | AUTOMATEDComment: SLIDE | | EXTERNAL | | | l Type | SCANNED, AGREES WITH | | LAB | | | | AUTOMATED | | | | | | RESULTS.Testing | | | | | | performed at [facility], [address] | | | | | | [address], | | | | | | [place] [address] | | | | + + + + + + | % Segmented | 87.8Comment: Testing | % | EXTERNAL | | | | performed at [facility], [address] | | LAB | | | Neutrophils | [address], | | | | | | [place] [address] | | | | + + + + + + | % | 6.3Comment: Testing | % | EXTERNAL | | | Lymphocytes | performed at [facility], [address] | | LAB | | | | [address], | | | | | | [place], [place] [address] | | | | + + + + + + | % Monocytes | 5.5Comment: Testing | % | EXTERNAL | | | | performed at [facility], [address] | | LAB | | | | [address], | | | | | | [place], [place] [address] | | | | + + + + + + | % | 0.2Comment: Testing | % | EXTERNAL | | | Eosinophils | performed at [facility], [address] | | LAB | | | | [address], | | | | | | [place] [address] | | | | + + + + + + | % Basophils | 0.2Comment: Testing | % | EXTERNAL | | | | performed at [facility], [address] | | LAB | | | | [address], | | | | | | [place] [address] | | | | + + + + + + | Absolute | 10.3 (H)Comment: Testing | 1.9 - 7.4 K/uL | EXTERNAL | | | Segmented | performed at [facility], [address] | | LAB | | | Neutrophils | [address], | | | | | | [place] [address] | | | | + + + + + + | Absolute | 0.7 (L)Comment: Testing | 1.0 - 3.9 K/uL | EXTERNAL | | | Lymphocytes | performed at [facility], [address] | | LAB | | | | [address], | | | | | | [place] [address] | | | | + + + + + + | Absolute | 0.6Comment: Testing | 0 - 0.8 K/uL | EXTERNAL | | | Monocytes | performed at [facility], [address] | | LAB | | | | [address], | | | | | | [place] [address] | | | | + + + + + + | Absolute | 0.0Comment: Testing | 0 - 0.5 K/uL | EXTERNAL | | | Eosinophils | performed at [facility], [address] | | LAB | | | | [address], | | | | | | [place] [address] | | | | + + + + + + | Absolute | 0.0Comment: Testing | 0 - 0.1 K/uL | EXTERNAL | | | Basophils | performed at [facility], [address] | | LAB | | | | [address], | | | | | | [place] [address] | | | | + + + + + + + + | Specimen | + + | Blood specimen | | (specimen) | + + + +---------+ + + | Performing | Address | City/State/Zipcode | Phone Number | | Organization | | | | + +---------+ + + | EXTERNAL LAB | | | | + +---------+ + + Phosphorus (04/10/2014 5:19 AM PDT) + + + + + + | Component | Value | Ref Range | Performed | Pathologist | | | | | At | Signature | + + + + + + | PHOSPHORUS | 2.3Comment: Testing | 2.3 - 4.8 mg/dL | EXTERNAL | | | | performed at [facility], [address] | | LAB | | | | [address], | | | | | | [place] [address] | | | | + + + + + + + + | Specimen | + + | | + + + +---------+ + + | Performing | Address | City/State/Zipcode | Phone Number | | Organization | | | | + +---------+ + + | EXTERNAL LAB | | | | + +---------+ + + Magnesium (04/10/2014 5:19 AM PDT) + + + + + + | Component | Value | Ref Range | Performed | Pathologist | | | | | At | Signature | + + + + + + | Magnesium | 1.8Comment: Testing | 1.7 - 2.4 mg/dL | EXTERNAL | | | | performed at [facility], [address] | | LAB | | | | [address], | | | | | | [place] [address] | | | | + + + + + + + + | Specimen | + + | Blood specimen | | (specimen) | + + + +---------+ + + | Performing | Address | City/State/Zipcode | Phone Number | | Organization | | | | + +---------+ + + | EXTERNAL LAB | | | | + +---------+ + + Ferritin (04/10/2014 5:19 AM PDT) + + + + + + | Component | Value | Ref Range | Performed | Pathologist | | | | | At | Signature | + + + + + + | Ferritin, | 175Comment: Testing | 11 - 450 ng/mL | EXTERNAL | | | External | performed at [facility], [address] | | LAB | | | | [address], | | | | | | [place] [address] | | | | + + + [...] + +---------+ + + Comprehensive Metabolic Panel (04/10/2014 5:19 AM PDT) + + + + + + | Component | Value | Ref Range | Performed | Pathologist | | | | | At | Signature | + + + + + + | Na | 137Comment: Testing | 135 - 143 | EXTERNAL | | | | performed at [facility], [address] | mmol/L | LAB | | | | [address], | | | | | | [place] [address] | | | | + + + + + + | K | 4.0Comment: Testing | 3.5 - 4.9 | EXTERNAL | | | | performed at [facility], [address] | mmol/L | LAB | | | | [address], | | | | | | [place] [address] | | | | + + + + + + | Cl | 108Comment: Testing | 99 - 109 mmol/L | EXTERNAL | | | | performed at [facility], [address] | | LAB | | | | [address], | | | | | | [place] [address] | | | | + + + + + + | CO2 | 25Comment: Testing | 23 - 32 mmol/L | EXTERNAL | | | | performed at [facility], [address] | | LAB | | | | [address], | | | | | | [place] [address] | | | | + + + + + + | Anion Gap | 8Comment: Testing | 5 - 20 mmol/L | EXTERNAL | | | | performed at [facility], [address] | | LAB | | | | [address], | | | | | | [place] [address] | | | | + + + + + + | Glucose, | 118 (H)Comment: Testing | 65 - 99 mg/dL | EXTERNAL | | | Fasting | performed at [facility], [address] | | LAB | | | | [address], | | | | | | [place] [address] | | | | + + + + + + | BUN | 20Comment: Testing | 8 - 25 mg/dL | EXTERNAL | | | | performed at [facility], [address] | | LAB | | | | [address], | | | | | | [place] [address] | | | | + + + + + + | Creatinine | 2.01 (H)Comment: Testing | 0.70 - 1.30 | EXTERNAL | | | | performed at [facility], [address] | mg/dL | LAB | | | | [address], | | | | | | [place] [address] | | | | + + + + + + | BUN/Creatin | 10Comment: Testing | | EXTERNAL | | | ine Ratio | performed at [facility], [address] | | LAB | | | | [address], | | | | | | [place] [address] | | | | + + + + + + | Calcium | 8.1 (L)Comment: Testing | 8.5 - 10.2 | EXTERNAL | | | | performed at [facility], [address] | mg/dL | LAB | | | | [address], | | | | | | [place] [address] | | | | + + + + + + | Protein, | 6.1 (L)Comment: Testing | 6.3 - 8.2 g/dL | EXTERNAL | | | Total | performed at [facility], [address] | | LAB | | | | [address], | | | | | | [place] [address] | | | | + + + + + + | Albumin | 3.9Comment: Testing | 3.6 - 5.0 g/dL | EXTERNAL | | | | performed at [facility], [address] | | LAB | | | | [address], | | | | | | [place] [address] | | | | + + + + + + | Globulin | 2.2Comment: Testing | 1.3 - 4.9 g/dL | EXTERNAL | | | | performed at [facility], [address] | | LAB | | | | [address], | | | | | | [place] [address] | | | | + + + + + + | A/G Ratio | 1.8Comment: Testing | 1.0 - 2.4 | EXTERNAL | | | | performed at [facility], [address] | | LAB | | | | [address], | | | | | | [place] [address] | | | | + + + + + + | Bilirubin | 0.7Comment: Testing | 0.1 - 1.5 mg/dL | EXTERNAL | | | Total | performed at [facility], [address] | | LAB | | | | [address], | | | | | | [place] [address] | | | | + + + + + + | ALP, | 40Comment: Testing | 35 - 115 U/L | EXTERNAL | | | External | performed at [facility], [address] | | LAB | | | | [address], | | | | | | [place] [address] | | | | + + + + + + | AST | 26Comment: Testing | 10 - 45 U/L | EXTERNAL | | | | performed at [facility], [address] | | LAB | | | | [address], | | | | | | [place] [address] | | | | + + + + + + | ALT | 20Comment: Testing | 10 - 65 U/L | EXTERNAL | | | | performed at [facility], [address] | | LAB | | | | [address], | | | | | | [place] [address] | | | | + + + + + + | Estimated | 39 (L)Comment: GFR <60: | mL/min/1.73m2 | EXTERNAL | | | GFR | CHRONIC KIDNEY DISEASE, | | LAB | | | | IF FOUND OVER A 3 MONTH | | | | | | PERIOD.GFR <15: KIDNEY | | | | | | FAILURE.FOR | | | | | | AMERICANS, MULTIPLY THE | | | | | | CALCULATED GFR BY | | | | | | 1.210.Testing performed | | | | | | at [facility], [address] | | | | | | [address] [facility], | | | | | | [place] [address] | | | | + + + + + + + + | Specimen | + + | Blood specimen | | (specimen) | + + + +---------+ + + | Performing | Address | City/State/Zipcode | Phone Number | | Organization | | | | + +---------+ + + | EXTERNAL LAB | | | | + +---------+ + + Eosinophil Smear, Urine (04/09/2014 4:28 PM PDT) + + + + + + | Component | Value | Ref Range | Performed | Pathologist | | | | | At | Signature | + + + + + + | Eosinophils | NO EOSINOPHILS | % | EXTERNAL | | | , Urine | SEENComment: Testing | | LAB | | | | performed at [facility], [address] | | | | | | [address], | | | | | | [place] [address] | | | | + + + + + + + + | Specimen | + + | | + + + +---------+ + + | Performing | Address | City/State/Zipcode | Phone Number | | Organization | | | | + +---------+ + + | EXTERNAL LAB | | | | + +---------+ + + Sodium, Urine, Random (04/09/2014 4:28 PM PDT) + + + + + + | Component | Value | Ref Range | Performed | Pathologist | | | | | At | Signature | + + + + + + | Sodium, | 26 (L)Comment: Testing | 90 - 104 mmol/L | EXTERNAL | | | Urine | performed at [facility], [address] | | LAB | | | Random | [address], | | | | | | [place] [address] | | | | + + + [...] + +---------+ + + External Lab: CBC (04/09/2014 9:39 AM PDT) + + + + + + | Component | Value | Ref Range | Performed | Pathologist | | | | | At | Signature | + + + + + + | WBC | 12.6 (H)Comment: Testing | 3.8 - 11.0 K/uL | EXTERNAL | | | | performed at [facility];[address] | | LAB | | | | [address];[place] | | | | | | [address] | | | | + + + + + + | Red Blood | 3.68 (L)Comment: Testing | 4.20 - 5.70 | EXTERNAL | | | Cells | performed at [facility];[address] | M/uL | LAB | | | Counted | [address];[place] | | | | | | [address] | | | | + + + + + + | Hemoglobin | 11.9 (L)Comment: Testing | 13.2 - 17.0 | EXTERNAL | | | | performed at [facility];[address] | g/dL | LAB | | | | [address];[place] | | | | | | [address] | | | | + + + + + + | Hematocrit, | 34.5 (L)Comment: Testing | 39.0 - 50.0 % | EXTERNAL | | | POC | performed at [facility];[address] | | LAB | | | | [address];[place] | | | | | | [address] | | | | + + + + + + | MCV | 93.7Comment: Testing | 80.0 - 100.0 fl | EXTERNAL | | | | performed at [facility];[address] | | LAB | | | | [address];[place] | | | | | | [address] | | | | + + + + + + | MCH | 32.2Comment: Testing | 27.0 - 34.0 pg | EXTERNAL | | | | performed at [facility];[address] | | LAB | | | | [address];[place] | | | | | | [address] | | | | + + + + + + | MCHC | 34.4Comment: Testing | 32.0 - 35.5 | EXTERNAL | | | | performed at [facility];[address] | g/dL | LAB | | | | [address];[place] | | | | | | [address] | | | | + + + + + + | RDW-CV | 47.3Comment: Testing | 37 - 53 fl | EXTERNAL | | | | performed at [facility];[address] | | LAB | | | | [address];[place] | | | | | | [address] | | | | + + + + + + | Platelet | 170Comment: Testing | 150 - 400 K/uL | EXTERNAL | | | Count | performed at [facility];[address] | | LAB | | | Plasma | [address];[place] | | | | | | [address] | | | | + + + + + + | MPV | 6.6Comment: Testing | fl | EXTERNAL | | | | performed at [facility];[address] | | LAB | | | | [address];[place] | | | | | | [address] | | | | + + + + + + | Differentia | AUTOMATEDComment: | | EXTERNAL | | | l Type | Testing performed at | | LAB | | | | [facility];[address];[place] [address] | | | | + + + + + + | % Segmented | 90.0Comment: Testing | % | EXTERNAL | | | | performed at [facility];[address] | | LAB | | | Neutrophils | [address];[place] | | | | | | [address] | | | | + + + + + + | % | 2.9Comment: Testing | % | EXTERNAL | | | Lymphocytes | performed at [facility];[address] | | LAB | | | | [address];[place] | | | | | | [address] | | | | + + + + + + | % Monocytes | 7.0Comment: Testing | % | EXTERNAL | | | | performed at [facility];[address] | | LAB | | | | [address];[place] | | | | | | [address] | | | | + + + + + + | % | 0.0Comment: Testing | % | EXTERNAL | | | Eosinophils | performed at [facility];[address] | | LAB | | | | [address];[place] | | | | | | [address] | | | | + + + + + + | % Basophils | 0.1Comment: Testing | % | EXTERNAL | | | | performed at [facility];[address] | | LAB | | | | [address];[place] | | | | | | [address] | | | | + + + + + + | Absolute | 11.3 (H)Comment: Testing | 1.9 - 7.4 K/uL | EXTERNAL | | | Segmented | performed at [facility] [place];[address] | | LAB | | | Neutrophils | [address];[place] | | | | | | [address] | | | | + + + + + + | Absolute | 0.4 (L)Comment: Testing | 1.0 - 3.9 K/uL | EXTERNAL | | | Lymphocytes | performed at [facility] [place];[address] | | LAB | | | | [address];[place] | | | | | | [address] | | | | + + + + + + | Absolute | 0.9 (H)Comment: Testing | 0 - 0.8 K/uL | EXTERNAL | | | Monocytes | performed at [facility] [place];[address] | | LAB | | | | [address];[place] | | | | | | [address] | | | | + + + + + + | Absolute | 0.0Comment: Testing | 0 - 0.5 K/uL | EXTERNAL | | | Eosinophils | performed at [facility] [place];[address] | | LAB | | | | [address];[place] | | | | | | [address] | | | | + + + + + + | Absolute | 0.0Comment: Testing | 0 - 0.1 K/uL | EXTERNAL | | | Basophils | performed at [facility] [place];[address] | | LAB | | | | [address];[place] | | | | | | [address] | | | | + + + + + + | Differentia | SLIDE SCANNED, AGREES | | EXTERNAL | | | l Comments | WITH AUTOMATED | | LAB | | | | RESULTS.Comment: RBC AND | | | | | | PLT MORPHOLOGY APPEAR | | | | | | NORMALTesting performed | | | | | | at [facility] [place];[address];[place] [address] | | | | + + + [...] + +---------+ + + Comprehensive Metabolic Panel (04/09/2014 9:39 AM PDT) + + + + + + | Component | Value | Ref Range | Performed | Pathologist | | | | | At | Signature | + + + + + + | Na | 140Comment: Testing | 135 - 143 | EXTERNAL | | | | performed at [facility] [place];[address] | mmol/L | LAB | | | | [address];[place] | | | | | | [address] | | | | + + + + + + | K | 4.5Comment: Testing | 3.5 - 4.9 | EXTERNAL | | | | performed at [facility] [place];[address] | mmol/L | LAB | | | | [address];[place] | | | | | | [address] | | | | + + + + + + | Cl | 111 (H)Comment: Testing | 99 - 109 mmol/L | EXTERNAL | | | | performed at [facility] [place];[address] | | LAB | | | | [address];[place] | | | | | | [address] | | | | + + + + + + | CO2 | 22 (L)Comment: Testing | 23 - 32 mmol/L | EXTERNAL | | | | performed at [facility] [place];[address] | | LAB | | | | [address];[place] | | | | | | [address] | | | | + + + + + + | Anion Gap | 11Comment: Testing | 5 - 20 mmol/L | EXTERNAL | | | | performed at [facility] [place];[address] | | LAB | | | | [address];[place] | | | | | | [address] | | | | + + + + + + | Glucose, | 144 (H)Comment: Testing | 65 - 99 mg/dL | EXTERNAL | | | Fasting | performed at [facility] [place];[address] | | LAB | | | | [address];[place] | | | | | | [address] | | | | + + + + + + | BUN | 22Comment: Testing | 8 - 25 mg/dL | EXTERNAL | | | | performed at [facility] [place];[address] | | LAB | | | | [address];[place] | | | | | | [address] | | | | + + + + + + | Creatinine | 2.11 (H)Comment: Testing | 0.70 - 1.30 | EXTERNAL | | | | performed at [facility];[address] | mg/dL | LAB | | | | [address];[place] | | | | | | [id number] | | | | + + + + + + | BUN/Creatin | 10Comment: Testing | | EXTERNAL | | | ine Ratio | performed at [facility];[address] | | LAB | | | | [address];[place] | | | | | | [address] | | | | + + + + + + | Calcium | 7.9 (L)Comment: Testing | 8.5 - 10.2 | EXTERNAL | | | | performed at [facility] [place] | mg/dL | LAB | | | | [address];[place] | | | | | | [address] | | | | + + + + + + | Protein, | 6.1 (L)Comment: Testing | 6.3 - 8.2 g/dL | EXTERNAL | | | Total | performed at [facility];[address] | | LAB | | | | [address];[place] | | | | | | [address] | | | | + + + + + + | Albumin | 3.5 (L)Comment: Testing | 3.6 - 5.0 g/dL | EXTERNAL | | | | performed at [facility] [place];[address] | | LAB | | | | [address];[place] | | | | | | [address] | | | | + + + + + + | Globulin | 2.6Comment: Testing | 1.3 - 4.9 g/dL | EXTERNAL | | | | performed at [facility];[address] | | LAB | | | | [address];[place] | | | | | | [address] | | | | + + + + + + | A/G Ratio | 1.3Comment: Testing | 1.0 - 2.4 | EXTERNAL | | | | performed at [facility];[address] | | LAB | | | | [address];[place] | | | | | | [address] | | | | + + + + + + | Bilirubin | 0.5Comment: Testing | 0.1 - 1.5 mg/dL | EXTERNAL | | | Total | performed at [facility];[address] | | LAB | | | | [address];[place] | | | | | | [address] | | | | + + + + + + | ALP, | 52Comment: Testing | 35 - 115 U/L | EXTERNAL | | | External | performed at [facility];[address] | | LAB | | | | [address];[place] | | | | | | [address] | | | | + + + + + + | AST | 32Comment: Testing | 10 - 45 U/L | EXTERNAL | | | | performed at [facility];[address] | | LAB | | | | [address];[place] | | | | | | [address] | | | | + + + + + + | ALT | 32Comment: Testing | 10 - 65 U/L | EXTERNAL | | | | performed at [facility];[address] | | LAB | | | | [address];[place] | | | | | | [id number] | | | | + + + + + + | Estimated | 37 (L)Comment: GFR <60: | mL/min/1.73m2 | EXTERNAL | | | GFR | CHRONIC KIDNEY DISEASE, | | LAB | | | | IF FOUND OVER A 3 MONTH | | | | | | PERIOD.GFR <15: KIDNEY | | | | | | FAILURE.FOR | | | | | | AMERICANS, MULTIPLY THE | | | | | | CALCULATED GFR BY | | | | | | 1.210.Testing performed | | | | | | at [facility];[address];[place] [address] | | | | + + + + + + + + | Specimen | + + | Blood specimen | | (specimen) | + + + +---------+ + + | Performing | Address | City/State/Zipcode | Phone Number | | Organization | | | | + +---------+ + + | EXTERNAL LAB | | | | + +---------+ + + MRI Hip Left wo Contrast (04/09/2014 8:25 AM PDT) + + | Specimen | + + | | + + + + + | Impressions | Performed At | + + + | 1. Bone marrow edema is demonstrated throughout the pelvis as | | | discussed above which may reflect microtrabecular injury. No clear | | | displaced fracture is present. 2. There appears to be degenerative | | | tearing of the labrum of the left hip. 3. There is fluid and edema | | | around the sciatic nerve which may be related to the recent injury. | | | Potential irritation of the sciatic nerve is not entirely excluded. | | | 4. Multiple muscle strains of the left pelvis. Electronically | | | signed by Vitaliy Jain MD on 04/09/2014 8:35 AM | | + + + + + + | Narrative | Performed At | + + + | [facility] TRAUMA 07/19/[birth year]60 MRI HIP LEFT WO CONTRAST 04/09/2014 | | | 8:25 AM HISTORY: Trauma, pain COMPARISON: CT, 04/08/14 | | | TECHNIQUE: Imaging was performed on a 1.5 Joy MRI system. | | | Multiplanar sequences according to a standard department protocol | | | were acquired without contrast. Dose: 0 mL. FINDINGS: There | | | is bone marrow edema demonstrated along a fracture involving the left | | | sacrum. There is no widening of the sacroiliac joint. The edema | | | pattern extends just to the midline at the level of S1. No extension | | | across into the right aspect of the sacrum is present. The bone | | | marrow signal intensity of the left iliac wing is within normal | | | limits. There is some subchondral cyst formation demonstrated along | | | the left acetabulum medially. There is mild edema present along | | | the left parasymphyseal region and along the anterior periacetabular | | | region. There is prominent edema and soft tissue swelling along the | | | bilateral flank, left greater than right. There is no joint effusion | | | noted. There is mild fluid along the bilateral greater trochanteric | | | bursa. There is mild chondromalacia demonstrated along the | | | articular surface of the acetabulum and adjacent femoral head. | | | Chondromalacia is noted along the anterior and superior margin of the | | | joint space. The inferior transverse ligament appears maintained. | | | There appears to be some fraying and a nondisplaced tear of the | | | anterior labrum. The superior lateral labrum appears degenerated in | | | appearance. There is a mild strain of the obturator internus. | | | Additionally, there is a strain of the piriformis musculature. A | | | moderate amount of edema is present demonstrated along the course of | | | the left sciatic nerve which may be related to the acute traumatic | | | injury. The bladder and prostate are normal. | | + + + + + | Procedure Note | + + | Kelvin Larsen - 03/04/2019 8:42 PM PDT [facility] [id number]/31/[id number] HIP LEFT | | WO CONTRAST04/09/2014 8:25 AM HISTORY: Trauma, pain COMPARISON: CT, 04/08/14 | | TECHNIQUE:Imaging was performed on a 1.5 Joy MRI system. Multiplanar sequences | | according to a standard department protocol were acquired without contrast.Dose: 0 mL. | | FINDINGS: There is bone marrow edema demonstrated along a fracture involving the left | | sacrum. There is no widening of the sacroiliac joint. The edema pattern extends just to | | the midline at the level of S1. No extension across into the right aspect of the sacrum | | is present. The bone marrow signal intensity of the left iliac wing is within normal | | limits. There is some subchondral cyst formation demonstrated along the left acetabulum | | medially. There is mild edema present along the left parasymphyseal region and along the | | anterior periacetabular region. There is prominent edema and soft tissue swelling along | | the bilateral flank, left greater than right. There is no joint effusion noted. There | | is mild fluid along the bilateral greater trochanteric bursa. There is mild | | chondromalacia demonstrated along the articular surface of the acetabulum and adjacent | | femoral head. Chondromalacia is noted along the anterior and superior margin of the | | joint space. The inferior transverse ligament appears maintained. There appears to be | | some fraying and a nondisplaced tear of the anterior labrum. The superior lateral labrum | | appears degenerated in appearance. There is a mild strain of the obturator internus. | | Additionally, there is a strain of the piriformis musculature. A moderate amount of | | edema is present demonstrated along the course of the left sciatic nerve which may be | | related to the acute traumatic injury. The bladder and prostate are normal. IMPRESSION: | | 1. Bone marrow edema is demonstrated throughout the pelvis as discussed above which may | | reflect microtrabecular injury. No clear displaced fracture is present.2. There | | appears to be degenerative tearing of the labrum of the left hip.3. There is fluid and | | edema around the sciatic nerve which may be related to the recent injury. Potential | | irritation of the sciatic nerve is not entirely excluded.4. Multiple muscle strains of | | the left pelvis. | |injury. The bladder and prostate are normal. | | | |IMPRESSION: | |1. Bone marrow edema is demonstrated throughout the pelvis as discussed above which may re flect microtrabecular injury. No clear displaced fracture is present. | |2. There appears to be degenerative tearing of the labrum of the left hip. | |3. There is fluid and edema around the sciatic nerve which may be related to the recent in jury. Potential irritation of the sciatic nerve is not entirely excluded. | |4. Multiple muscle strains of the left pelvis. | | | | | + + Drugs Of ABuse Screen, Urine (H) (04/08/2014 7:54 PM PDT) + + + + + + | Component | Value | Ref Range | Performed | Pathologist | | | | | At | Signature | + + + + + + | Methampheta | NEGATIVEComment: | | EXTERNAL | | | mine/ | Positive cutoff for | | LAB | | | Amphetamine | AMP = 1000 ng/mLTesting | | | | | Screen, | performed at [facility] | | | | | UA, POC | [address];[place] | | | | | | [address] | | | | + + + + + + | Barbiturate | NEGATIVEComment: | | EXTERNAL | | | s Screen, | Positive cutoff for | | LAB | | | Urine | MARI = 200 ng/mLQA FLAGS | | | | | | AND/OR RANGES MODIFIED | | | | | | BY DEMOGRAPHIC UPDATE ON | | | | | | 04/09 AT 0950Testing | | | | | | performed at [facility] | | | | | | [address];[place] | | | | | | [address] | | | | + + + + + + | Benzodiazep | POSITIVE (A)Comment: | | EXTERNAL | | | casey | Positive cutoff for | | LAB | | | Screen, | BENZO = 200 ng/mLQA | | | | | Urine | FLAGS AND/OR RANGES | | | | | | MODIFIED BY DEMOGRAPHIC | | | | | | UPDATE ON 04/09 AT | | | | | | 0950Testing performed at | | | | | | [facility];[address] [place] [address] | | | | | | Blvd;[place] [phone] | | | | + + + + + + | Cocaine | NEGATIVEComment: | | EXTERNAL | | | | Positive cutoff for | | LAB | | | | VICKY = 300 ng/mLQA FLAGS | | | | | | AND/OR RANGES MODIFIED | | | | | | BY DEMOGRAPHIC UPDATE ON | | | | | | 04/09 AT 0950Testing | | | | | | performed at [facility];[address] | | | | | | [address];[place] | | | | | | [address] | | | | + + + + + + | Methadone | NEGATIVEComment: | | EXTERNAL | | | | Positive cutoff for | | LAB | | | | MTD = 300 ng/mLTesting | | | | | | performed at [facility];[address] | | | | | | [address];[place] | | | | | | [address] | | | | + + + + + + | Opiates | NEGATIVEComment: | | EXTERNAL | | | | Positive cutoff for | | LAB | | | | OPI = 300 ng/mLQA FLAGS | | | | | | AND/OR RANGES MODIFIED | | | | | | BY DEMOGRAPHIC UPDATE ON | | | | | | 04/09 AT 0950Testing | | | | | | performed at [facility];[address] | | | | | | [address];[place] | | | | | | [address] | | | | + + + + + + | PCP | NEGATIVEComment: | | EXTERNAL | | | | Positive cutoff for PCP | | LAB | | | | = 25 ng/mLQA FLAGS | | | | | | AND/OR RANGES MODIFIED | | | | | | BY DEMOGRAPHIC UPDATE ON | | | | | | 04/09 AT 0950Testing | | | | | | performed at [facility];[address] | | | | | | [address];[place] | | | | | | [address] | | | | + + + + + + | Cannabinoid | NEGATIVEComment: | | EXTERNAL | | | s Screen, | Positive cutoff for THC | | LAB | | | Serum | = 50 ng/mLThe above are | | | | | | unconfirmed screening | | | | | | results. These results | | | | | | are to be used only for | | | | | | medical | | | | | | (i.e.,treatment) | | | | | | purposes. Unconfirmed | | | | | | screening results must | | | | | | not be used for | | | | | | non-medical purposes | | | | | | (e.g., employment | | | | | | testing, legal | | | | | | testing).QA FLAGS AND/OR | | | | | | RANGES MODIFIED BY | | | | | | DEMOGRAPHIC UPDATE ON | | | | | | 04/09 AT 0950Testing | | | | | | performed at [facility];[address] | | | | | | [address] [facility];[place], [place] | | | | | | [address] | | | | + + + + + + + + | Specimen | + + | Urine specimen | | (specimen) | + + + +---------+ + + | Performing | Address | City/State/Zipcode | Phone Number | | Organization | | | | + +---------+ + + | EXTERNAL LAB | | | | + +---------+ + + Urinalysis, Microscopic Only (04/08/2014 7:54 PM PDT) + + + + + + | Component | Value | Ref Range | Performed | Pathologist | | | | | At | Signature | + + + + + + | WBC, UA | 1-5Comment: QA FLAGS | 0 - 5 /hpf | EXTERNAL | | | | AND/OR RANGES MODIFIED | | LAB | | | | BY DEMOGRAPHIC UPDATE ON | | | | | | 04/09 AT 0950Testing | | | | | | performed at [facility];[address] | | | | | | [address];[place] | | | | | | [address] | | | | + + + + + + | RBC, UA | 26-50Comment: QA FLAGS | 0 - 2 /hpf | EXTERNAL | | | | AND/OR RANGES MODIFIED | | LAB | | | | BY DEMOGRAPHIC UPDATE ON | | | | | | 04/09 AT 0950Testing | | | | | | performed at [facility];[address] | | | | | | [address];[place] | | | | | | [address] | | | | + + + + + + | Epithelial | 1-5Comment: Testing | /lpf | EXTERNAL | | | Cells | performed at [facility];[address] | | LAB | | | | [address];[place] | | | | | | [address] | | | | + + + + + + | Bacteria, | TRACE (A)Comment: | | EXTERNAL | | | UA | Testing performed at | | LAB | | | | [facility];[address];[place] [phone] | | | | + + + + + + | CASTS | 1-5Comment: | /lpf | EXTERNAL | | | | HYALINETesting performed | | LAB | | | | at [facility];[address];[place] [id number] | | | | | | | [...] | | | + +---------+ + + Culture, Urine (04/08/2014 7:54 PM PDT) + + | Specimen | + + | Urine specimen | | (specimen) | + + + + + | Narrative | Performed At | + + + | Specimen Description CLEAN CATCH URINE CULTURE | EXTERNAL LAB | | NO GROWTH | | | Testing performed at [facility], [address] | | [place] [address] | | + + + + +---------+ + + | Performing | Address | City/State/Zipcode | Phone Number | | Organization | | | | + +---------+ + + | EXTERNAL LAB | | | | + +---------+ + + XR Sylvia Dominique 1 Monisha Buck (04/08/2014 7:22 PM PDT) + + | Specimen | + + | | + + + + + | Impressions | Performed At | + + + | 1. Comminuted fracture the distal radius with intra-articular | | | extension and dislocation. 2. Minimally displaced transverse | | | fracture the proximal radius. | | + + + + + + | Narrative | Performed At | + + + | [facility] TRAUMA XR ELBOW LIMITED RIGHT HISTORY: Trauma. | | | TECHNIQUE: Three views of the right elbow. COMPARISON: None. | | | FINDINGS: Transverse fracture the proximal radius with minimal | | | dorsal displacement of the distal fracture fragment. A comminuted | | | fracture of the distal radius with anterior dislocation. | | + + + + + | Procedure Note | + + | Kelvin Larsen - 03/04/2019 8:42 PM PDT [facility] TRAUMAXR ELBOW LIMITED RIGHT | | HISTORY:Trauma. TECHNIQUE:Three views of the right elbow. COMPARISON:None. | | FINDINGS:Transverse fracture the proximal radius with minimal dorsal displacement of the | | distal fracture fragment. A comminuted fracture of the distal radius with anterior | | dislocation. IMPRESSION: 1. Comminuted fracture the distal radius with intra-articular | | extension and dislocation.2. Minimally displaced transverse fracture the proximal | | radius. | |Three views of the right elbow. | | | |COMPARISON: | |None. | | | |FINDINGS: | |Transverse fracture the proximal radius with minimal dorsal displacement of the distal frac ture fragment. A comminuted fracture of the distal radius with anterior dislocation. | | | |IMPRESSION: | |1. Comminuted fracture the distal radius with intra-articular extension and dislocation. | |2. Minimally displaced transverse fracture the proximal radius. | | | | | + + XR Wrist Right 1 View Limited (04/08/2014 7:22 PM PDT) + + | Specimen | + + | | + + + + + | Impressions | Performed At | + + + | 1. Comminuted fracture the distal radius with intra-articular | | | extension and dislocation. 2. Minimally displaced fracture of the | | | ulnar styloid. 3. Questionable fracture of the hamate. CT could be | | | performed to further evaluate. 4. Comminuted fracture of the | | | proximal first metacarpal. | | + + + + + + | Narrative | Performed At | + + + | [facility] TRAU[facility] XR WRIST LIMITED RIGHT HISTORY: Trauma. | | | TECHNIQUE: Two views of the right wrist. COMPARISON: None. | | | FINDINGS: Common and mildly displace and angulated fracture the | | | proximal first metacarpal. Small ossific fragments are seen adjacent | | | to the base of the fifth metacarpal. Questionable fractures of the | | | hamate. Comminuted displaced fracture of the distal radius with | | | intra-articular extension and palmar dislocation. Minimally displaced | | | fracture of the ulnar styloid. | | + + + + + | Procedure Note | + + | Chava, Rad Conversion - 03/04/2019 8:42 PM [facility] TRAUMAXR WRIST LIMITED RIGHT | | HISTORY:Trauma. TECHNIQUE:Two views of the right wrist. COMPARISON:None. FINDINGS:Common | | and mildly displace and angulated fracture the proximal first metacarpal. Small ossific | | fragments are seen adjacent to the base of the fifth metacarpal. Questionable fractures | | of the hamate. Comminuted displaced fracture of the distal radius with intra-articular | | extension and palmar dislocation. Minimally displaced fracture of the ulnar styloid. | | IMPRESSION: 1. Comminuted fracture the distal radius with intra-articular extension and | | dislocation.2. Minimally displaced fracture of the ulnar styloid.3. Questionable | | fracture of the hamate. CT could be performed to further evaluate.4. Comminuted | | fracture of the proximal first metacarpal. Electronically signed by John Denis DO on | | 04/08/2014 10:26 PM | | | |FINDINGS: | |Common and mildly displace and angulated fracture the proximal first metacarpal. Small ossi fic fragments are seen adjacent to the base of the fifth metacarpal. Questionable fractures of the hamate. Comminuted | |displaced fracture of the distal radius with | |intra-articular extension and palmar dislocation. Minimally displaced fracture of the ulnar styloid. | | | |IMPRESSION: | |1. Comminuted fracture the distal radius with intra-articular extension and dislocation. | |2. Minimally displaced fracture of the ulnar styloid. | |3. Questionable fracture of the hamate. CT could be performed to further evaluate. | |4. Comminuted fracture of the proximal first metacarpal. | | | | | + + CT Head Cerv Ck Bhatti (04/08/2014 7:08 PM PDT) + + | Specimen | + + | | + + + + | Addenda | + + | Addendum by John Denis DO on 04/09/2014 3:39 PM Voice-recognition error | | within impression 4. There is a small fracture of the left kidney with mild amount of | | fluid/hemorrhage extending inferior round the proximal left (not right) renal | | collecting system. | + + + + + | Impressions | Performed At | + + + | 1. No acute intracranial process. 2. Negative for cervical | | | spine fracture. 3. Unremarkable CT examination of the chest. 4. | | | Small fracture to the anterior left kidney with mild amount of | | | fluid/hemorrhage extending inferiorly around the proximal right renal | | | collecting system. Superimposed injury to the collecting system is not | | | excluded. 5. Small ossific fragment inferior to the inferior | | | articular facet of L3 on the left side is felt to be chronic in | | | nature. | | | 7:39 PM | | + + + + + + | Narrative | Performed At | + + + | [facility] [address] HEAD CSPINE WO CHEST ABDOMEN PELVIS W CONTRAST | | | HISTORY: Trauma. TECHNIQUE: CT examination the head cervical | | | spine was performed without contrast. Sagittal coronal reformatted | | | images of the cervical spine were obtained. CT examination the chest, | | | abdomen, and pelvis was performed following uneventful intravenous | | | administration of 100 cc of Isovue 300. Axial, coronal, and sagittal | | | images of the the thoracic and lumbar spine obtained from the source | | | images. COMPARISON: None. FINDINGS: Head: No abnormal areas | | | of increased or decreased density seen throughout the brain. No mass, | | | hemorrhage, midline shift, or extra-axial fluid collection. Tiny mucus | | | retention cyst within the left maxillary sinus. C-spine: The | | | vertebral height, alignment, and interspacing are preserved. Negative | | | for cervical spine fracture. Prevertebral soft tissues are | | | unremarkable. No central canal stenosis or neural foraminal narrowing. | | | Chest: The heart is normal in size without pericardial effusion. | | | No mediastinal fluid collection or hematoma. The thoracic aorta and | | | pulmonary arteries are unremarkable. Trachea and esophagus appear | | | normal. No pneumothorax. Mild dependent atelectasis in the lower | | | lobes. Abdomen and pelvis: The liver, spleen, adrenals, and | | | pancreas are unremarkable. Surgical clips in the gallbladder fossa | | | from prior cholecystectomy . No enlarged lymph nodes. Mild cortical | | | thinning with multilobulated appearance to both kidneys. Hypodensity | | | within the anterior mid left kidney, felt to represent renal injury | | | with mild amount fluid/hemorrhage extending inferior to the left | | | kidney. No active extravasation of contrast. The fluid/hemorrhage is | | | surrounding the proximal right ureter. The bladder, prostate, and | | | rectum are unremarkable. The bowel is of normal caliber without free | | | intraperitoneal air or fluid. Tiny ossific density along the inferior | | | margin of the inferior articular process of the left L3 facet that | | | appears to have mildly sclerotic margins, felt to be chronic in | | | nature. Acute fracture is felt unlikely. | | + + + + + | Procedure Note | + + | Chava, Rad Conversion - 03/04/2019 8:42 PM PDT [facility] TRAUMACT HEAD CSPINE WO CHEST | | ABDOMEN PELVIS W CONTRAST HISTORY:Trauma. TECHNIQUE:CT examination the head cervical | | spine was performed without contrast. Sagittal coronal reformatted images of the | | cervical spine were obtained. CT examination the chest, abdomen, and pelvis was | | performed following uneventful intravenous administration of 100 cc of Isovue 300. | | Axial, coronal, and sagittal images of the the thoracic and lumbar spine obtained from | | the source images. COMPARISON:None. FINDINGS:Head: No abnormal areas of increased or | | decreased density seen throughout the brain. No mass, hemorrhage, midline shift, or | | extra-axial fluid collection. Tiny mucus retention cyst within the left maxillary sinus. | | C-spine: The vertebral height, alignment, and interspacing are preserved. Negative for | | cervical spine fracture. Prevertebral soft tissues are unremarkable. No central canal | | stenosis or neural foraminal narrowing. Chest: The heart is normal in size without | | pericardial effusion. No mediastinal fluid collection or hematoma. The thoracic aorta | | and pulmonary arteries are unremarkable. Trachea and esophagus appear normal. No | | pneumothorax. Mild dependent atelectasis in the lower lobes. Abdomen and pelvis: The | | liver, spleen, adrenals, and pancreas are unremarkable. Surgical clips in the | | gallbladder fossa from prior cholecystectomy . No enlarged lymph nodes. Mild cortical | | thinning with multilobulated appearance to both kidneys. Hypodensity within the anterior | | mid left kidney, felt to represent renal injury with mild amount fluid/hemorrhage | | extending inferior to the left kidney. No active extravasation of contrast. The | | fluid/hemorrhage is surrounding the proximal right ureter. The bladder, prostate, and | | rectum are unremarkable. The bowel is of normal caliber without free intraperitoneal air | | or fluid. Tiny ossific density along the inferior margin of the inferior articular | | process of the left L3 facet that appears to have mildly sclerotic margins, felt to be | | chronic in nature. Acute fracture is felt unlikely. IMPRESSION: 1. No acute | | intracranial process.2. Negative for cervical spine fracture.3. Unremarkable CT | | examination of the chest.4. Small fracture to the anterior left kidney with mild amount | | of fluid/hemorrhage extending inferiorly around the proximal right renal collecting | | system. Superimposed injury to the collecting system is not excluded.5. Small ossific | | fragment inferior to the inferior articular facet of L3 on the left side is felt to be | | chronic in nature. | |IMPRESSION: | |1. No acute intracranial process. | |2. Negative for cervical spine fracture. | |3. Unremarkable CT examination of the chest. | |4. Small fracture to the anterior left kidney with mild amount of fluid/hemorrhage extendi ng inferiorly around the proximal right renal collecting system. Superimposed injury to the collecting system is not excluded. | |5. Small ossific fragment inferior to the inferior articular facet of L3 on the left side is felt to be chronic in nature. | | | | | + + XR Pelvis 1 or 2 Vw (04/08/2014 6:20 PM PDT) + + | Specimen | + + | | + + + + + | Impressions | Performed At | + + + | 1. No evidence for fracture. | | + + + + + + | Narrative | Performed At | + + + | HOTEL 43 TRAUMA XR PELVIS 1-2 VIEW HISTORY: Trauma. | | | TECHNIQUE: Single frontal view the pelvis. COMPARISON: None. | | | FINDINGS: Bilateral sacroiliac joints are symmetric and maintained. | | | Hip joints are normal. No evidence for fracture. No pelvic diastases. | | | | | + + + + + | Procedure Note | + + | Kelvin Larsen Conversion - 03/04/2019 8:42 PM PDT HOTEL 43 TRAUMAXR PELVIS 1-2 VIEW | | HISTORY:Trauma. TECHNIQUE:Single frontal view the pelvis. COMPARISON:None. | | FINDINGS:Bilateral sacroiliac joints are symmetric and maintained. Hip joints are | | normal. No evidence for fracture. No pelvic diastases. IMPRESSION: 1. No evidence for | | fracture. | | | |TECHNIQUE: | |Single frontal view the pelvis. | | | |COMPARISON: | |None. | | | |FINDINGS: | |Bilateral sacroiliac joints are symmetric and maintained. Hip joints are normal. No evidenc e for fracture. No pelvic diastases. | | | |IMPRESSION: | |1. No evidence for fracture. | | | | | + + XR Chest 1 Vw (04/08/2014 6:20 PM PDT) + + | Specimen | + + | | + + + + + | Impressions | Performed At | + + + | 1. No acute process. | | + + + + + + | Narrative | Performed At | + + + | HOT[facility] 43 TRAUMA XR CHEST 1 VIEW HISTORY: Trauma. | | | TECHNIQUE: Single portable anterior view of the chest was obtained. | | | COMPARISON: None. FINDINGS: The heart is normal in size. No | | | pulmonary vascular congestion. No pneumothorax. No focal airspace | | | disease or pleural effusion. Surgical clips in right upper quadrant | | | from prior cholecystectomy. | | + + + + + | Procedure Note | + + | Chava, Kelvin Conversion - 03/04/2019 8:42 PM PDT HOTEL 43 TRAUMAXR CHEST 1 VIEW | | HISTORY:Trauma. TECHNIQUE:Single portable anterior view of the chest was obtained. | | COMPARISON:None. FINDINGS:The heart is normal in size. No pulmonary vascular congestion. | | No pneumothorax. No focal airspace disease or pleural effusion. Surgical clips in right | | upper quadrant from prior cholecystectomy. IMPRESSION: 1. No acute process. | | | |TECHNIQUE: | |Single portable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
--- OUTSIDE RECORDS SUMMARY | ~2019-12-22 | XMS | Encounter Summary ---
Demographics + + + | Address | [address] [place] [address] | | | [place] [address] | + + + | Home Phone [...] Team Providers + +------+ + | Care Ball Truing Machine Operator Name | Role | Phone [...] | on | Transplant Services | RN [address] [facility] | ) | | | | [address] | [address] | | | | | [place], | [place], [place] | | | | | [place] [address] | [address] | | | | | [phone] | | | +--------+ + + + [...]
--- OUTSIDE RECORDS SUMMARY | ~2019-12-22 | XMS | Encounter Summary ---
Demographics + + + | Address | [address] [place] [address] | | | [place] [address] | + + + | Home Phone | | + + + | Preferred Language | Unknown | + + + | Marital Status | | + + + | Anabaptism Affiliation | CHR | + + + [...] Team Providers + +------+ + | Care Hospice Nurse Practitioner Name | Role | Phone [...] | +--------+ + + + + | 12/10/ | Telephone | Clinical | Thi Aden, | Tx Recommendation | | 2016 | | Transplant Services | RN [address] | Tracking (vaccines) | | | | [address] | [address] | | | | | [place], | [place], [place] | | | | | [place] [address] | [address] | | | | | [phone] | | | +--------+ + + + [...]
--- OUTSIDE RECORDS SUMMARY | ~2019-12-22 | XMS | Encounter Summary ---
Demographics + + + | Address | [address] [place] [address] | | | [place] [address] | + + + | Home Phone [...] Providers + +------+ + | Care Acid Condenser Name | Role | Phone | + [...] | +--------+ + + + + | 03/11/ | Telephone | Clinical | Thi Aden, | Tx Recommendation | | 2016 | | Transplant Services | RN [address] [facility] | Tracking | | | | [address] | [address] | | | | | [place], | [place], [place] | | | | | [place] [address] | [address] | | | | | [phone] | | | +--------+ + + + [...]
--- OUTSIDE RECORDS SUMMARY | ~2019-12-22 | XMS | Encounter Summary ---
Demographics + + + | Address | [address] [place] [address] | | | [place] [address] | + + + | Home Phone | | + + + | Preferred Language | Unknown | + + + | Marital Status | | + + + | Nondenominational Affiliation | CHR | + + + [...] Team Providers + +------+ + | Care Furnace Clerk Name | Role | Phone | [...] | | | | mass | PA-C [id number] | | | | | | Procedures | [address] | | | | | | US FINE | [address] | | | | | | NEEDLE | [address] | | | | | | ASPIRATE | [place], [place] | | | | | | TISSUE WITH | [address] | | | | | | GUIDANCE | Phone: | | | | | | | [phone] | | | | | | | Fax: | | | | | | | [phone] | | + +--------+ + + + + Encounter Details +--------+ + + + + | Date | Type | Department | Care Team | Description | +--------+ + + + + | 11/08/ | Telephone | Otolaryngology | Adria Snow | | | 2019 | | Head and Neck | LEANDRO Lao [address] [facility] | | | | | Surgery Services at | [facility] | | | | | [facility] [address] | [place], [place] | | | | | [place] Mailcode: | [address] | | | | | [facility] | [phone] | | | | | and Healing, | | | | | | [address] | | | | | | [place], [place] | | | | | | [address] | | | | | | [phone] | | | +--------+ + + + [...]
--- OUTSIDE RECORDS SUMMARY | ~2019-12-22 | XMS | Encounter Summary ---
Demographics + + + | Address | [address] [address] | | | [place] [address] | + + + | Home Phone [...] [place], [place] | | | | | [address] | | + + + + + | Misty Boateng | ECON | [address] | | | | | [place] | | | | | [address] | | + + + + + Care Team Providers + +------+ + | Care Compliance Review Specialist Name | Role | Phone | [...] | NEPHROLOGY [address] | disease) stage 4, | | | | [address] | [address] | GFR 15-29 ml/min | | | | [place] | [place] [id number] | ([facility]) (Primary Dx) | | | | [address] | [phone] | | | | | [phone] | | | +--------+ + + + [...] | | | | | [place] [address] | | | | | | [phone] | | | | | | | | +--------+---------+ + + + documented as of this encounter Visit Diagnoses + + | Diagnosis | + + | CKD (chronic kidney disease) stage 4, GFR 15-29 ml/min ([facility]) - Primary Chronic kidney | | disease, Stage IV (severe) | + + documented in this encounter"
--- OUTSIDE RECORDS SUMMARY | ~2019-12-22 | XMS | Encounter Summary ---
Demographics + + + | Address | [address] [place] [address] | | | [place] [address] | + + + | Home Phone | | + + + | Preferred Language | Unknown | + + + | Marital Status | | + + + | Jewish Affiliation | CHR | + + + | Race | White | + + + | Ethnic Group | Not or | + + + Author + + + | Author | [facility] | + + + | Organization | [facility] | + + + | Address | Unknown | + + + | Phone | Unavailable | + + + Support + + +---------+ + | Name | Relationship | Address | Phone | + + +---------+ + | Misty Oneill | ECON | Unknown | | + + +---------+ + Care Team Providers + +------+ + | Care Forensic Examiner Name | Role | Phone | + +------+ + | Hai Holman MD | PCP | | + +------+ + Reason for Visit + + + | Reason | Comments | + + + | Pre Transplant | Care Everywhere refresh | | Workup | | + + + Encounter Details +--------+ + + + + | Date | Type | Department | Care Team | Description | +--------+ + + + + | 07/03/ | Abstract | Clinical | Thi Aden, | Pre Transplant | | 2015 | | Transplant Services | RN [address] | Workup (Care | | | | [address] | [address] | Everywhere refresh) | | | | [address] [place], | [place], [place] | | | | | [place] [address] | [address] | | | | | [phone] | | | +--------+ + + + [...]
--- OUTSIDE RECORDS SUMMARY | ~2019-12-22 | XMS | Clinical Summary ---
Demographics + + + | Address | [address] | | | [place] [address] | + + + | Home Phone [...] [place], [place] | | | | | [address] | | + + + + + | Misty Boateng | ECON | [address] | | | | | [place] | | | | | [address] | | + + + + + Care Team Providers + +------+ + | Care Chocolate Coater Name | Role | Phone | + [...] kidney transplant waiting list | | at [facility] Waiting time qualifying date: 10/03/1609- | | Active on transplant list at [facility].Referred to [facility]. Cleared for | | transplant by Dr. [...] | | | | | [place] [address] | | | | | | [phone] | | | | | | | [...] | | 201.76 | | 2.4x14mm - [id number]: | | Wrist | | | | 4 / / | | Qty: 2 on 04/08/2014 by | | | | | | | | Dick Hines MD | | | | | | | + +------+--------+ +--------+--------+--------+ | Screw Locking [employer] | | Right: | Synthes | | | 02.210 | | 2.4x18mm - [id number]: | | Wrist | | | | [...] | | | .630 / | | [id number]: Qty: 1 on | | | | | | / | | 04/08/2014 by Dick Hines | | | | | | | | MD Jonathan | | | | | | | + +------+--------+ +--------+--------+--------+ | Screw Locking [employer] | | Right: | Synthes | | | 02.210 | | 2.4x16mm - [id number]: | | Wrist | | | | .116 / | | Qty: 2 on 04/08/2014 by | | | | | | / | | Dick Hines MD | | | | | | | + +------+--------+ +--------+--------+--------+ | Screw Locking [employer] | | Right: | Synthes | | | 02.210 | | 2.4x14mm - [id number]: | | Wrist | | | | [...] cc syringes. These were provided to a survey technologist in | | | order to [...] | These were also given to the survey technologist in order to | | | prepare slides. Asbestos Abatement Worker images of each pass were saved to [...] syringes. These were also given to the survey technologist in order | | to prepare slides. Asbestos Abatement Worker images of each pass were saved to [...] preparation was | | | performed by [facility], [address] [place], [place] [address] | | | [place] [address] (Community Board Member: Paulie Krishnamurthy D.O.; | | | CLIA#:[id number]).Professional interpretation was performed by [facility] | | | [address], | | | [place] [address] (Community Board Member: Lorenzo York M.D.; CLIA#: | | | [id number]). FLOW CYTOMETRY:Left parotid, biopsy:- No clonal B-cell [...] | | | performance characteristics determined by [facility]. It has | | | not been [...] | | | cytometry was performed by [facility] | | | [place] [address] (Community Board Member: Paulie Krishnamurthy, | | | D.O.; CLIA#: [id number]).Professional interpretation of the flow | | | cytometry was performed by [facility], [facility] | | | [facility], [address] [place] [address] (Medical | | | Director: Heladio Dickerson M.D.; CLIA#: [id number]). IMAGES: A: | | | [id number]: [id number] FINAL DIAGNOSIS PERFORMED BY: | | | [...] | | | | | | |A: [id number] | | |A: [id number] | | | | | | | | | | | |FINAL DIAGNOSIS PERFORMED BY: Saad May MD, Pathologist Nov 15 2019 [...] | | | | | |Diagnostician: Renny BARRAZA([facility]) | | |Metal Neutralizer | | |Diagnostician: Lorenzo York MD | [...] +--------+ +---------+--------+ | PACIFICSOURCE | PACIFI | [id number] | 02/18/20 | [phone] | | PPO | | | [facility]OURC | | 17-Pre | 2 | | | | | E | | sent | | | | | | VOYAGE | | | | | | | | R | | | | | | + +--------+ +--------+ +---------+--------+ | PACIFICSOURCE | PACIFI | [id number] | 02/18/20 | [phone] | | Indemn | | | CSOURC [...] Person | Self [birth year] | [address] | | | al/Fam | | 1970 | [address] [place], [place] | | | greg | | | 6 (Home) | [address] | | | | | | [phone] | | | | | | | 1 (Work) | | + +--------+ +--------+ + + | Dasha Veliz | Person | Self | [birth year] | | [address] | | | al/Fam | | 1970 | [phone] | [address] [place], [place] | | | greg | | | 6 (Home) | [address] | | | | | | [phone] | | | | | | | 1 (Work) | | + +--------+ +--------+ + + Advance Directives + + + + + | Type | Date Recorded | Patient | Explanation | | | | Asbestos Abatement Worker | | + + + + + | Power of | | | | | Instantizer Operator | | | | + + + + + | Advance | 11/08/2015 11:46 | | | | Directive | AM | | | + + + + +
--- OUTSIDE RECORDS SUMMARY | ~2019-12-22 | XMS | Encounter Summary ---
Demographics + + + | Address | [address] | | | [place] [address] | + + + | Home Phone [...] [place], [place] | | | | | [address] | | + + + + + | Misty Boateng | ECON | [address] | | | | | [place] | | | | | [address] | | + + + + + Care Team Providers + +------+ + | Care Igniter Capper Name | Role | Phone | + [...] + + | 01/05/ | Telephone | [facility] | Christine Martinez W, | Blood Pressure | | 2019 | | NEPHROLOGY [address] | MD [address] | | | | | [address] | [address] [facility] | | | | | [place], [place] | [place] [id number] | | | | | [address] | [phone] | | | | | [phone] | | | +--------+ + + + [...] | | | | | [place] [address] | | | | | | [phone] | | | | | | | | +--------+---------+ + + + documented as of this encounter Visit Diagnoses Not on filedocumented in this encounter"
--- OUTSIDE RECORDS SUMMARY | ~2019-12-22 | XMS | Encounter Summary ---
Demographics + + + | Address | [address] [place] [address] | | | [place] [address] | + + + | Home Phone [...] Providers + +------+ + | Care Transfer Table Operator Name | Role | Phone | [...] | | | | | Kait Barrios [place], | [place], [place] | | | | | [place] [address] | [address] | | | | | [phone] | | | +--------+ + + + [...]
--- OUTSIDE RECORDS SUMMARY | ~2019-12-22 | XMS | Encounter Summary ---
Demographics + + + | Address | [address] | | | [place] [address] | + + + | Home Phone | | + + + | Preferred Language | Unknown | + + + | Marital Status | | + + + | Druze Affiliation | 1041 | + + + | Race | Unknown | + + + | Ethnic Group | Unknown | + + + Author + + + | Author | [facility] | | | and [place] | + + + | Organization | [facility] | | | and [place] | + + + | Address | Unknown | + + + | Phone | Unavailable | + + + Support + + + + + | Name | Relationship | Address | Phone | + + + + + | Ryan Oneill | ECON | [place], [place] | | | | | [address] | | + + + + + | Misty Boateng | ECON | [address] | | | | | [place], [place] | | | | | [address] | | + + + + + Care Team Providers + +------+ + | Care Product Specialist Name | Role | Phone [...] NEPHROLOGY [address] | M, DO [address] | | | | | [address] | [place] | | | | | [place], [place] | [place], [place] | | | | | [address] | [address] | | | | | [phone] | | | +--------+ + + + [...] of this encounter Progress Mandy Donaldson - 09/26/2016 9:49 AM PSTOutside record: [facility], dos: 3-3-17 . Sent to scan. documente d in this encounter Plan of Treatment +--------+---------+ + + + | Date | Type | Specialty | Care Team | Description | +--------+---------+ + + + | 03/20/ | Office | Nephrology | Christine Martinez, | | | 2019 | Visit | | [address] | | | | | | [address] [place] | | | | | | [place] [address] | | | | | | [phone] | | | | | | | | +--------+---------+ + + + documented as of this encounter Visit Diagnoses Not on filedocumented in this encounter"
--- OUTSIDE RECORDS SUMMARY | ~2019-12-22 | XMS | Encounter Summary ---
Demographics + + + | Address | [address] | | | [place] [address] | + + + | Home Phone [...] [place], [place] | | | | | [address] | | + + + + + | Misty Boateng | ECON | [address] | | | | | [place], [place] | | | | | [address] | | + + + + + Care Team Providers + +------+ + | Care Pin Game Machine Inspector Name | Role | Phone | [...] | NEPHROLOGY [address] | [address] | disease) stage 4, | | | | [address] | [address] [place] | GFR 15-29 ml/min | | | | [place], [place] | [place] [address] | ([facility]) (Primary Dx); | | | | [address] | [phone] | Interstitial | | | | [phone] | | nephritis chronic | +--------+ + [...] for nephrology appt on 09/22/17 sent to [facility]. 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
--- OUTSIDE RECORDS SUMMARY | ~2019-12-22 | XMS | Encounter Summary ---
Demographics + + + | Address | [address] | | | [place] [address] | + + + | Home Phone | | + + + | Preferred Language | Unknown | + + + | Marital Status | | + + + | Temple Affiliation | 1041 | + + + | Race | Unknown | + + + | Ethnic Group | Unknown | + + + Author + + + | Author | [facility] | | | and [place] | + + + | Organization | [facility] | | | and [place] | + + + | Address | Unknown | + + + | Phone | Unavailable | + + + Support + + + + + | Name | Relationship | Address | Phone | + + + + + | Ryan Oneill | ECON | [place], [place] | | | | | [address] | | + + + + + | Misty Boateng | ECON | [address] | | | | | [place], [place] | | | | | [address] | | + + + + + Care Team Providers + +------+ + | Care Job Recruiter Name | Role | Phone | + [...] | NEPHROLOGY [address] | [address] | | | | | [address] | [address] [place] | | | | | [place], [place] | [place] [address] | | | | | [address] | [phone] | | | | | [phone] | | | +--------+ + + + [...] | | | | | [place] [address] | | | | | | [phone] | | | | | | | | +--------+---------+ + + + documented as of this encounter Visit Diagnoses Not on filedocumented in this encounter"
--- OUTSIDE RECORDS SUMMARY | ~2019-12-22 | XMS | Encounter Summary ---
Demographics + + + | Address | [address] | | | [place] [address] | + + + | Home Phone [...] [place], [place] | | | | | [address] | | + + + + + | Misty Boateng | ECON | [address] | | | | | [place], [place] | | | | | [address] | | + + + + + Care Team Providers + +------+ + | Care Fabric Finisher Name | Role | Phone | + +------+ + PCP | Unavailable | + +------+ + Reason for Visit + + + | Reason | Comments | + + + | Follow-up | CKD (chronic kidney disease) stage 4, GFR 15-29 ml/min ([facility]) | + + + Evaluate & Treat [...] [address] | | | | | ([facility]) | [address] | [address] | | | | | Procedures | [address] | [place] | | | | | [place] OFFICE | [place], | [address] Phone: | | | | | OUTPATIENT | [place] | [phone] | | | | | VISIT 25 | [address] | Fax: | | | | | MINUTES | Phone: | [phone] | | | | | | [phone] | | | | | | | Fax: | | | | | | | [phone] | | +--------+--------+ + + + + Encounter Details +--------+---------+ + + + | Date | Type | Department | Care Team | Description | +--------+---------+ + + + | 10/20/ | Office | [facility] | Christine Martinez W, | CKD (chronic kidney | | 2017 | Visit | NEPHROLOGY [address] | [address] | disease) stage 4, | | | | [address] | [address] [place] | GFR 15-29 ml/min | | | | [place] | [place] [address] | ([facility]) (Primary Dx); | | | | [address] | [phone] | Essential | | | | [phone] | | hypertension, | | | | [...] 10/20/2016 Negative Negative, 100 mg/dL Final Specific [place], UA, POC 10/20/2016 1.010 1.001 - 1.030 [...] RBC, External 10/14/2016 2 Final UA Specific [place], External 10/14/2016 1.016 1.005 - 1.03 Final [...] 4, GFR 15-29 ml/min ([facility]) N18.4 585.4 Due to chronic interstitial nephritis. [...] transplantation of kidney Z76.82 V49.83 Listed through [facility]. Cc: Hai Holman [facility] Transplant documented in this encounter Plan of [...] | | | | | | [place] [address] | | | | | | [phone] | | | | | | | [...] 1.001 - 1.030 | | | | [place], | | | | | | UA, [...]
--- OUTSIDE RECORDS SUMMARY | ~2019-12-22 | XMS | Encounter Summary ---
Demographics + + + | Address | [address] [place] [address] | | | [place] [address] | + + + | Home Phone [...] Team Providers + +------+ + | Care Sephora Product Consultant Name | Role | Phone | + +------+ + | Hai Holman MD | PCP | | + +------+ + Reason for Visit + + + | Reason | Comments | + + + | Lab Results | MDRD: 06/06/15 | + + + Encounter Details +--------+ + + + + | Date | Type | Department | Care Team | Description | +--------+ + + + + | 08/02/ | Abstract | Clinical | Santos Lorenzo, | Lab Results (MDRD: | | 2015 | | Transplant Services | [address] | 06/06/15) | | | | [address] | [address] | | | | | [place], | [place], [place] | | | | | [place] [address] | [address] | | | | | [phone] | [phone] | | | | | | | [...] + | MDRD 6 | Routin | 06/06/2015 | | Results for this | | | e | | | procedure are in the | | | | | | results section. | + +--------+ + + + documented in this encounter Results MDRD 6 (06/06/2015) + + + + + + | Component | Value | Ref Range | Performed | Pathologist | | | | | At | Signature | + + + + + + | MDRD6 | 18.37 | | NON [facility] | | | | | | LAB | | + + + + + + | BUN, PLASMA | 40 (H) | mg/dL | NON [facility] | | | (LAB) | | | LAB | | + + + + + + | CREATININE | 4.09 (H) | mg/dL | NON [facility] | | | PLASMA | | | LAB | | | (LAB) | | | | | + + + + + + | ALBUMIN, | 4.4 | g/dL | NON [facility] | | | PLASMA | | | LAB | | | (LAB) | | | | | + + + + + + + + | Specimen | + + | Blood - Blood | + + + + + | Narrative | Performed At | + + + | [facility] | NON [facility] | | [address] [address] | | |[place] [address] | | + + + + +---------+ + + | Performing | Address | City/State/Zipcode | Phone Number | | Organization | | | | + +---------+ + + | NON [facility] | | | | + +---------+ + + documented in this encounter Visit Diagnoses Not on filedocumented in this encounter"
--- OUTSIDE RECORDS SUMMARY | ~2019-12-22 | XMS | Encounter Summary ---
Demographics + + + | Address | [address] | | | [place] [address] | + + + | Home Phone [...] [place], [place] | | | | | [address] | | + + + + + | Misty Boateng | ECON | [address] | | | | | [place], [place] | | | | | [address] | | + + + + + Care Team Providers + +------+ + | Care Brewery Pumper Name | Role | Phone | + +------+ + PCP | Unavailable | + +------+ + Encounter Details +--------+ + + + + | Date | Type | Department | Care Team | Description | +--------+ + + + + | 11/28/ | Hospital | [facility] | Conversion | | | 2017 | Encounter | [facility] | Transaction, | | | | | CLINIC [address] | Provider Unknown | | | | | [address] [place], [place] | | | | | | [address] | (Fax) | | | | | [phone] | | | +--------+ + + + [...] + + + | Blood Pressure | 112/79 | 11/28/2016 7:15 AM | | | | | PDT | | + + + + + | Pulse | 70 | 11/28/2016 7:15 AM | | | | | PDT [...] | Weight | 83.6 kg (184 lb 4.8 | 11/28/2016 7:15 AM | | | | oz) | PDT | | + + + + + | Height | 182.9 cm (6') | 11/28/2016 7:15 AM | | | | | PDT | | + + + + + | Body Mass Index | 25 | 11/28/2016 7:15 AM | | | | | PDT [...] | | | | | [place] [address] | | | | | | [phone] | | | | | | | | +--------+---------+ + + + documented as of this encounter Procedures + +--------+ + + + | Procedure Name | Priori | Date/Time | Associated Diagnosis | Comments | | | ty | | | | + +--------+ + + + | MRSA NAAT | Timed | 11/28/2016 | | Results for this | | | | 7:30 AM | | procedure are in the | | | | PDT | | results section. | + +--------+ + + + | EXTERNAL LAB: CBC | Routin | 11/28/2016 | | Results for this | | | e | 7:29 AM | | procedure are in the | | | | PDT | | results section. | + +--------+ + + + | BASIC METABOLIC | Routin | 11/28/2016 | | Results for this | | PANEL | e | 7:29 AM | | procedure are in the | | | | PDT | | results section. | + +--------+ + + + | ECG 12 LEAD | Routin | 11/28/2016 | | Results for this | | | e | 7:09 AM | | procedure are in the | | | | PDT | | results section. | + +--------+ + + + documented in this encounter Results MRSA NAAT (11/28/2016 7:30 AM PDT) + + | Specimen | + + | | + + + + + | Narrative | Performed At | + + + | SOURCE NARES(NOSE) MRSA | EXTERNAL LAB | | PCR NEGATIVE Testing | | | performed at [facility] [place] [facility] [facility];[place] [address] | | + + + + +---------+ + + | Performing | Address | City/State/Zipcode | Phone Number | | Organization | | | | + +---------+ + + | EXTERNAL LAB | | | | + +---------+ + + External Lab: CBC (11/28/2016 7:29 AM PDT) + + + + + + | Component | Value | Ref Range | Performed | Pathologist | | | | | At | Signature | + + + + + + | WBC | 5.01 | 3.80 - 11.00 | EXTERNAL | | | | | K/uL | LAB | | + + + + + + | Red Blood | 3.96 (L) | 4.20 - 5.70 | EXTERNAL | | | Cells | | M/uL | LAB | | | Counted | | | | | + + + + + + | Hemoglobin | 13.1 (L) | 13.2 - 17.0 | EXTERNAL | | | | | g/dL | LAB | | + + + + + + | Hematocrit, | 38.5 (L) | 39.0 - 50.0 % | EXTERNAL | | | POC | | | LAB | | + + + + + + | MCV | 97.2 | 80.0 - 100.0 fl | EXTERNAL | | | | | | LAB | | + + + + + + | MCH | 33.2 | 27.0 - 34.0 pg | EXTERNAL | | | | | | LAB | | + + + + + + | MCHC | 34.1 | 32.0 - 35.5 | EXTERNAL | | | | | g/dL | LAB | | + + + + + + | RDW-CV | 48.6 | 37 - 53 fl | EXTERNAL | | | | | | LAB | | + + + + + + | Platelet | 195 | 150 - 400 K/uL | EXTERNAL | | | Count | | | LAB | | | Plasma | | | | | + + + + + + | MPV | 7.6 | fl | EXTERNAL | | | | | | LAB | | + + + + + + | Differentia | AUTOMATED | | EXTERNAL | | | l Type | | | LAB | | + + + + + + | % Segmented | 57.27 | % | EXTERNAL | | | | | | LAB | | | Neutrophils | | | | | + + + + + + | % | 29.49 | % | EXTERNAL | | | Lymphocytes | | | LAB | | + + + + + + | % Monocytes | 10.93 | % | EXTERNAL | | | | | | LAB | | + + + + + + | % | 1.80 | % | EXTERNAL | | | Eosinophils | | | LAB | | + + + + + + | % Basophils | 0.51 | % | EXTERNAL | | | | | | LAB | | + + + + + + | Absolute | 2.87 | 1.90 - 7.40 | EXTERNAL | | | Segmented | | K/uL | LAB | | | Neutrophils | | | | | + + + + + + | Absolute | 1.48 | 1.00 - 3.90 | EXTERNAL | | | Lymphocytes | | K/uL | LAB | | + + + + + + | Absolute | 0.55 | 0.00 - 0.80 | EXTERNAL | | | Monocytes | | K/uL | LAB | | + + + + + + | Absolute | 0.09 | 0.00 - 0.50 | EXTERNAL | | | Eosinophils | | K/uL | LAB | | + + + + + + | Absolute | 0.03Comment: Testing | 0.00 - 0.10 | EXTERNAL | | | Basophils | performed at [facility], [address] | K/uL | LAB | | | | [address], | | | | | | [place] [address] | | | | + + + + + + + + | Specimen | + + | Blood specimen | | (specimen) | + + + +---------+ + + | Performing | Address | City/State/Zipcode | Phone Number | | Organization | | | | + +---------+ + + | EXTERNAL LAB | | | | + +---------+ + + Basic Metabolic Panel (11/28/2016 7:29 AM PDT) + + + + + + | Component | Value | Ref Range | Performed | Pathologist | | | | | At | Signature | + + + + + + | Na | 141 | 135 - 145 | EXTERNAL | | | | | mmol/L | LAB | | + + + + + + | K | 4.5 | 3.5 - 4.9 | EXTERNAL | | | | | mmol/L | LAB | | + + + + + + | Cl | 108 | 99 - 109 mmol/L | EXTERNAL | | | | | | LAB | | + + + + + + | CO2 | 24 | 23 - 32 mmol/L | EXTERNAL | | | | | | LAB | | + + + + + + | Anion Gap | 14 | 5 - 20 mmol/L | EXTERNAL | | | | | | LAB | | + + + + + + | Glucose, | 92 | 65 - 99 mg/dL | EXTERNAL | | | Fasting | | | LAB | | + + + + + + | BUN | 28 (H) | 8 - 25 mg/dL | EXTERNAL | | | | | | LAB | | + + + + + + | Creatinine | 3.1 (H) | 0.70 - 1.30 | EXTERNAL | | | | | mg/dL | LAB | | + + + + + + | BUN/Creatin | 9 | | EXTERNAL | | | ine Ratio | | | LAB | | + + + + + + | Calcium | 8.8 | 8.5 - 10.5 | EXTERNAL | | | | | mg/dL | LAB | | + + + + + + | Estimated | 23 (L)Comment: GFR <60: | mL/min/1.73m2 | EXTERNAL [...] | | | | | | at [facility] [facility] [place] [place] [address] | | | | | | [facility];[place] [address] | | | | + + + + + + + + | Specimen | + + | Blood specimen | | (specimen) | + + + +---------+ + + | Performing | Address | City/State/Zipcode | Phone Number | | Organization | | | | + +---------+ + + | EXTERNAL LAB | | | | + +---------+ + + ECG 12 lead (11/28/2016 7:09 AM PDT) + + + + + + | Component | Value | Ref Range | Performed | Pathologist | | | | | At | Signature | + + + + + + | DIAGNOSIS: | Normal sinus | | EXTERNAL | | | | rhythmNormal ECGNo | | LAB | | | | previous ECGs | | | | | | availableConfirmed by | | | | | | Roberto Medina ([id number]) | | | | | | on 11/28/2016 9:03:51 PM | | | | + + + + + + + + | Specimen | + + | | + + + + + | Narrative | Performed At | + + + | Historically converted procedure from [employer] environment | EXTERNAL LAB | + + + + +---------+ + + | Performing | Address | City/State/Zipcode | Phone Number | | Organization | | | | + +---------+ + + | EXTERNAL LAB | | | | + +---------+ + + documented in this encounter Visit Diagnoses Not on filedocumented in this encounter"
--- OUTSIDE RECORDS SUMMARY | ~2019-12-22 | XMS | Encounter Summary ---
Demographics + + + | Address | [address] [place] [address] | | | [place] [address] | + + + | Home Phone | | + + + | Preferred Language | Unknown | + + + | Marital Status | | + + + | Lutheran Affiliation | CHR | + + + [...] Providers + +------+ + | Care Cotton Header Name | Role | Phone | + [...] | | | | | kidney | [place] | [address] [facility] | | | | | disease, | [place] | [address] | | | | | stage 4 | Nephrology | [address] [place], | | | | | (severe) | [address] | [place] | | | | | Illness, | [address] | [address] | | | | | unspecified | [address] | Phone: | | | | | | [place], | [phone] | | | | | | [place] [address] | Fax: | | | | | | Phone: | [phone] | | | | | | [phone] | | | | | | | Fax: | | | | | | | [phone] | | +--------+--------+ + + + + Encounter Details +--------+---------+ + + + | Date | Type | Department | Care Team | Description | +--------+---------+ + + + | 09/05/ | Office | Kidney Transplant | [address] | Chronic kidney | | 2016 | Visit | at [facility] [address] | [facility] | disease, stage III | | | | [address] | Road [place], [place] | (moderate) ([facility]); | | | | Physician's | [id number] | Acute interstitial | | | | Pavilion, 3rd floor | | nephritis | | | | [facility] [place] | | | | | | [address] | | | | | | [phone] | | | +--------+---------+ + + + [...]
--- OUTSIDE RECORDS SUMMARY | ~2019-12-22 | XMS | Encounter Summary ---
Demographics + + + | Address | [address] [place] [address] | | | [place] [address] | + + + | Home Phone [...] Team Providers + +------+ + | Care Alley Worker Name | Role | Phone | [...] Don Davion | Davion Kait Barrios | Everywhere refresh) | | | | [address] [place], | [place], [place] | | | | | [place] [address] | [address] | | | | | [phone] | | | +--------+ + + + [...]
--- OUTSIDE RECORDS SUMMARY | ~2019-12-22 | XMS | Encounter Summary ---
Demographics + + + | Address | [address] | | | [place] [address] | + + + | Home Phone [...] [place], [place] | | | | | [address] | | + + + + + | Misty Boateng | ECON | [address] | | | | | [place], [place] | | | | | [address] | | + + + + + Care Team Providers + +------+ + | Care Child Nurse Name | Role | Phone | + [...] | NEPHROLOGY [address] | [address] | | | | | [address] | [address] [place] | | | | | [place], [place] | [place] [address] | | | | | [address] | [phone] | | | | | [phone] | | | +--------+ + + + [...] | | | | | [place] [address] | | | | | | [phone] | | | | | | | [...] 1.014 | | EXTERNAL | | | [place], | | | LAB | | | [...]
--- OUTSIDE RECORDS SUMMARY | ~2019-12-22 | XMS | Encounter Summary ---
Demographics + + + | Address | [address] [place] [address] | | | [place] [address] | + + + | Home Phone [...] + + + | Author | [facility] | + + + | Organization | [facility] | + + + | Address | Unknown | + + + | Phone | Unavailable | + + + Support + + +---------+ + | Name | Relationship | Address | Phone | + + +---------+ + | Misty Oneill | ECON | Unknown | | + + +---------+ + Care Team Providers + +------+ + | Care Smoking Pipe Driller And Threader Name | Role | Phone | + +------+ + | Hai Holman MD | PCP | | + +------+ + Reason for Visit + + + | Reason | Comments | + + + | kidney transplant | living donor coord contact | | evaluation | | + + + Encounter Details +--------+ + + + + | Date | Type | Department | Care Team | Description | +--------+ + + + + | 09/24/ | Telephone | Clinical | Elle Avendano, | kidney transplant | | 2016 | | Transplant Services | RN [address] | evaluation (living | | | | [address] [facility] | [address] | donor coord contact) | | | | Kait Barrios [place], | [place], [place] | | | | | [place] [address] | [address] | | | | | [phone] | | | +--------+ + + + [...]
--- OUTSIDE RECORDS SUMMARY | ~2019-12-22 | XMS | Encounter Summary ---
Demographics + + + | Address | [address] [place] [address] | | | [place] [address] | + + + | Home Phone [...] Team Providers + +------+ + | Care Blender Operator Name | Role | Phone | [...] | | | | | Kait Barrios [place], | [place], [place] | | | | | [place] [address] | [address] | | | | | [phone] | [phone] | | | | | | | [...] Performed At | + + + | [facility] [place] | NON [facility] | | [address] [address] | | |[place] [address] | | | | | + + + + +---------+ + + | Performing | Address | City/State/Zipcode | Phone Number | | Organization | | | | + +---------+ + + | NON [facility] | | | | + +---------+ + + documented in this encounter Visit Diagnoses Not on filedocumented in this encounter"
--- OUTSIDE RECORDS SUMMARY | ~2019-12-22 | XMS | Encounter Summary ---
Demographics + + + | Address | [address] [place] [address] | | | [place] [address] | + + + | Home Phone [...] Team Providers + +------+ + | Care Interactive Media Specialist Name | Role | Phone | + +------+ + | Jt Perkins MD | PCP | | + +------+ + Reason for Visit + + + | Reason | Comments | + + + | Medication | | | reconciliation | | + + + Encounter Details +--------+ + + + + | Date | Type | Department | Care Team | Description | +--------+ + + + + | 11/30/ | Telephone | Preoperative | Delmy Waters, | Medication | | 2020 | | Medicine Clinic at | PharmD [address] [facility] | reconciliation | | | | [facility] | [facility] | | | | | [address] | [place], [place] | | | | | Mail Code: [id number] | [address] | | | | | [facility] | | | | | | and [place], | | | | | | [address] | | | | | | [place], [place] | | | | | | [address] | | | | | | [phone] | | | +--------+ + + + [...]
--- OUTSIDE RECORDS SUMMARY | ~2019-12-22 | XMS | Encounter Summary ---
Demographics + + + | Address | [address] | | | [place] [address] | + + + | Home Phone | | + + + | Preferred Language | Unknown | + + + | Marital Status | | + + + | Holiness Affiliation | 1041 | + + + | Race | Unknown | + + + | Ethnic Group | Unknown | + + + Author + + + | Author | [facility] | | | and [place] | + + + | Organization | [facility] | | | and [place] | + + + | Address | Unknown | + + + | Phone | Unavailable | + + + Support + + + + + | Name | Relationship | Address | Phone | + + + + + | Ryan Veliz | ECON | [place], [place] | | | | | [address] | | + + + + + | Misty Boateng | ECON | [address] | | | | | [place] | | | | | [address] | | + + + + + Care Team Providers + +------+ + | Care Senior Informatica Developer Name | Role | Phone | + +------+ + | Jt Perkins MD | PCP | | + +------+ + Encounter Details +--------+ + + + + | Date | Type | Department | Care Team | Description | +--------+ + + + + | 11/13/ | Hospital | [facility] | Adria Snow | Parotid mass | | 2020 | [facility] | LEANDRO [address] | | | | | ULTRASOUND [address] | [address] | | | | | JEFF MART[address]NE[address] | [place], [place] | | | | | [place], [place] | [address] | | | | | [address] | [phone] | | | | | [phone] | | | | | | | Radiologist, [facility] | | | | | | Ultrasound [...] + + +---------+ + + | amLODIPine | Take 1 tablet by | | 0 | 08/23/19 | | | (NORVASC) 10 MG | mouth Daily. | | | 20 | | | tablet | | | | | | + + + +---------+ + + | carvedilol (COREG) | Take 1 tablet by | 180 | 3 | 08/23/19 | | | 12.5 mg tablet | mouth 2 times daily | tablet | | 20 | | | | (with breakfast & | | | | | | | dinner). | | | | | + + + +---------+ + + | escitalopram | take 1 tablet by | | 0 | 11/23/19 | | | (LEXAPRO) 20 mg | mouth once daily | | | 19 | | | tablet | | | [...] | 2019 | Visit | | MD [address] | | | | | | [address] [place] | | | | | | [place] [address] | | | | | | [phone] | | | | | | | [...] + documented in this encounter Results US Guided Biopsy (11/14/2019 11:43 AM [...] cc syringes. These were provided to a automation technologist in | | | order to [...] | These were also given to the automation technologist in order to | | | prepare slides. Orientation And Mobility Specialist images of each pass were saved to [...] + + | Chava, Rad Results In 11/14/2019 1:45 PM PDT | | SONOGRAPHIC [...] syringes. These were also given to the automation technologist in order | | to prepare slides. Orientation And Mobility Specialist images of each pass were saved to | | PACS. The material was submitted to pathology and reviewed by . | | Lorenzo York who determined that [...] preparation was | | | performed by [facility], [address] | | | [place] [address] (Die Maker: Paulie Krishnamurthy D.O.; | | | CLIA#:[id number]).Professional interpretation was performed by [facility] | | | [facility], [address] [place] [address], | | | [place] [address] (Die Maker: Lorenzo York M.D.; CLIA#: | | | [id number]). FLOW CYTOMETRY:Left parotid, biopsy:- No clonal B-cell [...] | | | performance characteristics determined by [facility]. It has | | | not been [...] | | | cytometry was performed by [facility], [address] [place] [address] | | | [place] [address] (Die Maker: Paulie Krishnamurthy, | | | D.O.; CLIA#: [id number]).Professional interpretation of the flow | | | cytometry was performed by [facility], [facility] | | | [facility], [address] [place] [address] (Medical | | | Director: Heladio Dickerson M.D.; CLIA#: [id number]). IMAGES: A: | | | [id number]: [id number] FINAL DIAGNOSIS PERFORMED BY: | | | [...] occurred.BES:emb Diagnostician: Renny Adams | | | CT(ASCP)CytotechnologistDiagnostician: Lorenzo York | | | MDPathologistElectronically Signed 11/22/2019 | | | | | | | | | | | |A: [id number] | | |[id number]: [id number] | | | | | | | [...] | | | | | |Diagnostician: Renny Adams CT(ASC) | | |Stable Cleaner | | |Diagnostician: Lorenzo York MD | [...]
--- OUTSIDE RECORDS SUMMARY | ~2019-12-22 | XMS | Encounter Summary ---
Demographics + + + | Address | [address] | | | [place] [address] | + + + | Home Phone | | + + + | Preferred Language | Unknown | + + + | Marital Status | | + + + | Jew Affiliation | 1041 | + + + | Race | Unknown | + + + | Ethnic Group | Unknown | + + + Author + + + | Author | [facility] | | | and [place] | + + + | Organization | [facility] | | | and [place] | + + + | Address | Unknown | + + + | Phone | Unavailable | + + + Support + + + + + | Name | Relationship | Address | Phone | + + + + + | Ryan Oneill | ECON | [place], [place] | | | | | [address] | | + + + + + | Misty Boateng | ECON | [address] | | | | | [place], [place] | | | | | [address] | | + + + + + Care Team Providers + +------+ + | Care Software Security Consultant Name | Role | Phone | + +------+ + PCP | Unavailable | + +------+ + Encounter Details +--------+ + + + + | Date | Type | Department | Care Team | Description | +--------+ + + + + | 11/28/ | Hospital | [facility] | Conversion | | | 2017 | Encounter | CENTER PREADMIT | Transaction, | | | | | CLINIC [address] | Provider Unknown | | | | | [address] [place], [place] | | | | | | [address] | (Fax) | | | | | [phone] | | | +--------+ + + + [...] | | | | | [place] [address] | | | | | | [phone] | | | | | | | [...] NEGATIVE Testing | | | performed at [facility];[address] [facility];[place] [address] | | + + + + +---------+ [...] | | | Basophils | performed at [facility], [address] | [address] | LAB | | | | [address] Abdul, | | | | | | [place] [address] | | | | + + + [...] | | | | | | at [facility];[address] [place] [address] | | | | | | [facility];[place] [address] | | | | + + + [...]
--- OUTSIDE RECORDS SUMMARY | ~2019-12-22 | XMS | Encounter Summary ---
Demographics + + + | Address | [address] | | | [place] [address] | + + + | Home Phone [...] [place], [place] | | | | | [address] | | + + + + + | Misty Boateng | ECON | [address] | | | | | [place] | | | | | [address] | | + + + + + Care Team Providers + +------+ + | Care Billet Cutter Name | Role | Phone | [...] | | | | | | | [place] | | | | | | | COLONOSCOPY | | | | | | | FLX DX | | | | | | | W/COLLJ SPEC | | | | | | | WHEN PFRMD | | | | | | | [place] | | | | | | | COLONOSCOPY | | | | | | | W/BIOPSY | | | | | | | SINGLE/MULTI | | | | | | | PLE [place] | | | | | | | COLSC FLX | | | | | | | W/RMVL OF | | | | | | | TUMOR POLYP | | | | | | | LESION SNARE | | | | | | | TQ [place] | | | | | | | [...] + + | 11/10/ | Surgery | [facility] | Pan Jhaveri MD | COLONOSCOPY | | 2019 | | MED CTR MP INTRA OP | [address] | | | | | [address] | [place], [place] | | | | | [place], [place] | [address] | | | | | [address] | [phone] | | | | | [phone] | | | +--------+---------+ + + + [...] | | | | | [place] [address] | | | | | | [phone] | | | | | | | [...] chronic and | | | microscopic colitis. [facility]:cab:C2NR GROSS DESCRIPTION: A. The | | | [...] | | | components were performed by [facility], [address] [facility] | | | [place] [address] (Cardiology Technologist: Paulie Krishnamurthy, | | | D.OLos; [facility]#: [id number]). Diagnostician: Honey Zavala MD | | | Pathologist Electronically Signed 11/11/2018 | | + + + + +---------+ + + | Performing | Address | City/State/[facility] | Phone Number | | Organization | [...]
--- OUTSIDE RECORDS SUMMARY | ~2019-12-22 | XMS | Encounter Summary ---
Demographics + + + | Address | [address] | | | [place] [address] | + + + | Home Phone [...] [place], [place] | | | | | [address] | | + + + + + | Misty Boateng | ECON | [address] | | | | | [place], [place] | | | | | [address] | | + + + + + Care Team Providers + +------+ + | Care Repair Table Operator Name | Role | Phone [...] | NEPHROLOGY [address] | [address] | | | | | [address] | [address] [place] | | | | | [place], [place] | [place] [address] | | | | | [address] | [phone] | | | | | [phone] | | | +--------+ + + + [...] | | | | | [place] [address] | | | | | | [phone] | | | | | | | [...]
--- OUTSIDE RECORDS SUMMARY | ~2019-12-22 | XMS | Encounter Summary ---
Demographics + + + | Address | [address] | | | [place] [address] | + + + | Home Phone [...] [place], [place] | | | | | [address] | | + + + + + | Misty Boateng | ECON | [address] | | | | | [place], [place] | | | | | [address] | | + + + + + Care Team Providers + +------+ + | Care Doll Wig Hackler Name | Role | Phone | + +------+ + PCP | Unavailable | + +------+ + Encounter Details +--------+ + + + + | Date | Type | Department | Care Team | Description | +--------+ + + + + | 09/04/ | Abstract | [facility] | Peace Drake | | | 2016 | | NEPHROLOGY [address] | M, DO [address] | | | | | [address] | [place], [address] | | | | | [place], [place] | [place] | | | | | [address] | [address] | | | | | [phone] | | | +--------+ + + + [...] this encounter Progress Notes Mandy Negrete - 09/04/2016 8:59 AM PSTPhysician order sheet. Sent to scan.Electronical ly signed by Mandy Negrete at 09/04/2016 10:58 AM PSTdocumented in this encounter Plan of Treatment +--------+---------+ + + + | Date | Type | Specialty | Care Team | Description | +--------+---------+ + + + | 03/20/ | Office | Nephrology | Christine Martinez, | | | 2019 | Visit | | MD Monica Manzana[address] | | | | | | [address] [place] | | | | | | [place] [address] | | | | | | [phone] | | | | | | | | +--------+---------+ + + + documented as of this encounter Visit Diagnoses Not on filedocumented in this encounter"
--- OUTSIDE RECORDS SUMMARY | ~2019-12-22 | XMS | Encounter Summary ---
Demographics + + + | Address | [address] [place] [address] | | | [place] [address] | + + + | Home Phone | | + + + | Preferred Language | Unknown | + + + | Marital Status | | + + + | Islam Affiliation | CHR | + + + [...] Providers + +------+ + | Care Internal Medicine Hospitalist Name | Role | Phone | + +------+ + | Hai Holman MD | PCP | | + +------+ + Reason for Visit + + + | Reason | Comments | + + + | Lab Results | MDRD 6: 11/13/16 | + + + Encounter Details +--------+ + + + + | Date | Type | Department | Care Team | Description | +--------+ + + + + | 11/24/ | Abstract | Clinical | Santos Lorenzo, | Lab Results (MDRD 6: | | 2017 | | Transplant Services | [address] | 11/13/16) | | | | [address] | [address] | | | | | Kait Barrios [place], | [place], [place] | | | | | [place] [address] | [address] | | | | | [phone] | [phone] | | | | | | | [...] + | MDRD 6 | Routin | 11/14/2015 | | Results for this | | | e | | | procedure are in the | | | | | | results section. | + +--------+ + + + documented in this encounter Results MDRD 6 (11/14/2015) + +-------+ + + + | Component | Value | Ref Range | Performed | Pathologist | | | | | At | Signature | + +-------+ + + + | MDRD6 | 27.39 | | NON [facility] | | | | | | LAB | | + +-------+ + + + | BUN, PLASMA | 26 | mg/dL | NON [facility] | | | (LAB) | | | LAB | | + +-------+ + + + | CREATININE | 2.96 | mg/dL | NON [facility] | | | PLASMA | | | LAB | | | (LAB) | | | | | + +-------+ + + + | ALBUMIN, | 4.5 [...] Performed At | + + + | [facility] | NON [facility] | | [id number] [address] | | |[place] [address] | | + + + + +---------+ + + | Performing | Address | City/State/Zipcode | Phone Number | | Organization | | | | + +---------+ + + | NON [facility] | | | | + +---------+ + + documented in this encounter Visit Diagnoses Not on filedocumented in this encounter"
--- OUTSIDE RECORDS SUMMARY | ~2019-12-22 | XMS | Encounter Summary ---
Demographics + + + | Address | [address] [place] [address] | | | [place] [address] | + + + | Home Phone | | + + + | Preferred Language | Unknown | + + + | Marital Status | | + + + | Scientologist Affiliation | CHR | + + + [...] Team Providers + +------+ + | Care Seo Engineer Name | Role | Phone | [...] | | Work [address] | [facility] [address] | | | | | Michelle Adam | [address] [facility] | | | | | [place], [address] | [address] [place], [place] | | | | | [address] [place], [place] | [address] | | | | | [address] | [phone] | | | | | [phone] | | | +--------+ + + + [...]
--- OUTSIDE RECORDS SUMMARY | ~2019-12-22 | XMS | Encounter Summary ---
Demographics + + + | Address | [address] | | | [place] [address] | + + + | Home Phone [...] [place], [place] | | | | | [address] | | + + + + + | Misty Boateng | ECON | [address] | | | | | [place], [place] | | | | | [address] | | + + + + + Care Team Providers + +------+ + | Care Mfg Assoc Name | Role | Phone | + +------+ + PCP | Unavailable | + +------+ + Encounter Details +--------+ + + + + | Date | Type | Department | Care Team | Description | +--------+ + + + + | 09/19/ | Hospital | [facility] | Conversion | | | 2016 | Encounter | CENTER P[facility]MIT | Transaction, | | | | | CLINIC [address] | Provider Unknown | | | | | [address] [place], [place] | | | | | | [address] | (Fax) | | | | | [phone] | | | +--------+ + + + [...] + + + | Blood Pressure | 126/75 | 09/20/2015 3:01 PM | | | | | PST | | + + + + + | Pulse | 68 | 09/20/2015 3:01 PM | | | | | PST [...] | 91.6 kg (201 lb 15 | 09/20/2015 3:01 PM | | | | oz) | PST | | + + + + + | Height | 182.9 cm (6') | 09/20/2015 3:01 PM | | | | | PST | | + + + + + | Body Mass Index | 27.39 | 09/20/2015 3:01 PM | | | | | PST [...] | | | | | [place] [address] | | | | | | [phone] | | | | | | | | +--------+---------+ + + + documented as of this encounter Visit Diagnoses Not on filedocumented in this encounter"
--- OUTSIDE RECORDS SUMMARY | ~2019-12-22 | XMS | Encounter Summary ---
Demographics + + + | Address | [address] [place] [address] | | | [place] [address] | + + + | Home Phone | | + + + | Preferred Language | Unknown | + + + | Marital Status | | + + + | Rastafarian Affiliation | CHR | + + + [...] Team Providers + +------+ + | Care Cut Out Machine Operator Name | Role | Phone | + +------+ + | Hai Holman MD | PCP | | + +------+ + Reason for Visit + + + | Reason | Comments | + + + | Tx Recommendation | EGD, Colon, trauma CT | | Tracking | | + + + Encounter Details +--------+ + + + + | Date | Type | Department | Care Team | Description | +--------+ + + + + | 02/18/ | Telephone | Clinical | Thi Aden, | Tx Recommendation | | 2015 | | Transplant Services | RN [address] | Tracking (EGD, | | | | [address] | [address] | Colon, trauma CT) | | | | Kait Barrios [place], | [place], [place] | | | | | [place] [address] | [address] | | | | | [phone] | | | +--------+ + + + [...]
--- OUTSIDE RECORDS SUMMARY | ~2019-12-22 | XMS | Encounter Summary ---
Demographics + + + | Address | [address] [place] [address] | | | [place] [address] | + + + | Home Phone [...] Team Providers + +------+ + | Care Egg Smeller Name | Role | Phone | + [...] | | | | | Kait Barrios [place], | [place], [place] | | | | | [place] [address] | [address] | | | | | [phone] | | | +--------+ + + + [...]
--- OUTSIDE RECORDS SUMMARY | ~2019-12-22 | XMS | Encounter Summary ---
Demographics + + + | Address | [address] | | | [place] [address] | + + + | Home Phone [...] [place], [place] | | | | | [address] | | + + + + + | Misty Boateng | ECON | [address] | | | | | [place] | | | | | [address] | | + + + + + Care Team Providers + +------+ + | Care Dough Mixer Name | Role | Phone | [...] NEPHROLOGY [address] | MD [address] | | | | | [address] | [address] [facility] | | | | | [place], [place] | [place] [address] | | | | | [address] | [phone] | | | | | [phone] | | | +--------+--------+ + + + [...] | | | | | [place] [address] | | | | | | [phone] | | | | | | | | +--------+---------+ + + + documented as of this encounter Visit Diagnoses Not on filedocumented in this encounter"
--- OUTSIDE RECORDS SUMMARY | ~2019-12-22 | XMS | Encounter Summary ---
Demographics + + + | Address | [address] [place] [address] | | | [place] [address] | + + + | Home Phone [...] Team Providers + +------+ + | Care Editor News Name | Role | Phone | + [...] | | | | | Kait Barrios [place], | [place], [place] | | | | | [place] [address] | [address] | | | | | [phone] | | | +--------+ + + + [...]
--- OUTSIDE RECORDS SUMMARY | ~2019-12-22 | XMS | Encounter Summary ---
Demographics + + + | Address | [address] | | | [place] [address] | + + + | Home Phone [...] + + | Author | [facility] | | | and [place] | + + + | Organization | [facility] | | | and [place] | + + + | Address | Unknown | + + + | Phone | Unavailable | + + + Support + + + + + | Name | Relationship | Address | Phone | + + + + + | Ryan Oneill | ECON | [place], [place] | | | | | [address] | | + + + + + | Misty Boateng | ECON | [address] | | | | | [place] | | | | | [address] | | + + + + + Care Team Providers + +------+ + | Care Mannequin Decorator Name | Role | Phone | [...] | | | | | | | [place] | | | | | | | COLONOSCOPY | | | | | | | FLX DX | | | | | | | W/COLLJ SPEC | | | | | | | WHEN PFRMD | | | | | | | [place] | | | | | | | COLONOSCOPY | | | | | | | W/BIOPSY | | | | | | | SINGLE/MULTI | | | | | | | PLE [place] | | | | | | | COLSC FLX | | | | | | | W/RMVL OF | | | | | | | TUMOR POLYP | | | | | | | LESION SNARE | | | | | | | TQ [place] | | | | | | | [...] + + | 11/10/ | Anesthesia | [facility] | Kian Gold MD | | | 2019 | Event | MED CTR MP INTRA OP | [address] | | | | | [address] | [place] | | | | | [place] | [address] | | | | | [address] | | | | | | [phone] | | | +--------+ + + + [...] 11/10/18 1550 by | | eral | vbpu-kcc-gohayd catheter system; | Yarelis Arizmendi RN | [...] | | | | | | [place] [address] | | | | | | [phone] | | | | | | | [...]
--- OUTSIDE RECORDS SUMMARY | ~2019-12-22 | XMS | Encounter Summary ---
Demographics + + + | Address | [address] | | | [place] [address] | + + + | Home Phone | | + + + | Preferred Language | Unknown | + + + | Marital Status | | + + + | Samaritan Affiliation | 1041 | + + + | Race | Unknown | + + + | Ethnic Group | Unknown | + + + Author + + + | Author | [facility] | | | and [place] | + + + | Organization | [facility] | | | and [place] | + + + | Address | Unknown | + + + | Phone | Unavailable | + + + Support + + + + + | Name | Relationship | Address | Phone | + + + + + | Ryan Oneill | ECON | [place], [place] | | | | | [address] | | + + + + + | Misty Boateng | ECON | [address] | | | | | [place], [place] | | | | | [address] | | + + + + + Care Team Providers + +------+ + | Care Chain Mender Name | Role | Phone | + [...] | NEPHROLOGY [address] | [address] | | | | | [address] | [address] [place] | | | | | [place], [place] | [place] [address] | | | | | [address] | [phone] | | | | | [phone] | | | +--------+ + + + [...] | | | | | [place] [address] | | | | | | [phone] | | | | | | | | +--------+---------+ + + + documented as of this encounter Visit Diagnoses Not on filedocumented in this encounter"
--- OUTSIDE RECORDS SUMMARY | ~2019-12-22 | XMS | Encounter Summary ---
Demographics + + + | Address | [address] | | | [place] [address] | + + + | Home Phone | | + + + | Preferred Language | Unknown | + + + | Marital Status | | + + + | Episcopal Affiliation | 1041 | + + + | Race | Unknown | + + + | Ethnic Group | Unknown | + + + Author + + + | Author | [facility] | | | and [place] | + + + | Organization | [facility] | | | and [place] | + + + | Address | Unknown | + + + | Phone | Unavailable | + + + Support + + + + + | Name | Relationship | Address | Phone | + + + + + | Ryan Oneill | ECON | [place], [place] | | | | | [address] | | + + + + + | Misty Boateng | ECON | [address] | | | | | [place], [place] | | | | | [address] | | + + + + + Care Team Providers + +------+ + | Care Kids Club Attendant Name | Role | Phone | + +------+ + PCP | Unavailable | + +------+ + Encounter Details +--------+ + + + + | Date | Type | Department | Care Team | Description | +--------+ + + + + | 11/08/ | Orders Only | [facility] | Pan Jhaveri MD | Crohn's disease | | 2016 | | MED CTR XRAY [address] | [address] | without | | | | [place] | [place], [place] | complication, | | | | [place] [address] | [address] | unspecified | | | | [phone] | [phone] | gastrointestinal | | | | | | tract location (HCC) | +--------+ + + + + [...] 2019 | Visit | | MD Monica Tirado [place] | | | | | | [address] | | | | | | [place] [address] | | | | | | [phone] | | | | | | | | +--------+---------+ + + + documented as of this encounter Visit Diagnoses + + | Diagnosis | + + | Crohn's disease without complication, unspecified gastrointestinal tract location | | (HCC) | + + documented in this encounter"
--- OUTSIDE RECORDS SUMMARY | ~2019-12-22 | XMS | Encounter Summary ---
Demographics + + + | Address | [address] [place] [address] | | | [place] [address] | + + + | Home Phone [...] Team Providers + +------+ + | Care Pressure Testing Technician Name | Role | Phone | [...] [address] | [address] | colonoscopy) | | | | Kait Barrios [place], | [place], [place] | | | | | [place] [address] | [address] | | | | | [phone] | | | +--------+ + + + [...]
--- OUTSIDE RECORDS SUMMARY | ~2019-12-22 | XMS | Encounter Summary ---
Demographics + + + | Address | [address] [place] [address] | | | [place] [address] | + + + | Home Phone | | + + + | Preferred Language | Unknown | + + + | Marital Status | | + + + | Bahai Affiliation | CHR | + + + [...] Providers + +------+ + | Care Commercial Carpet Installer Name | Role | Phone | [...] | Medicine Clinic at | PharmD [address] [facility] | reconciliation | | | | [facility] | [facility] | | | | | [address] | [place], [place] | | | | | Mail Code: OC8PM | [phone] | | | | | [facility] | | | | | | and [place], | | | | | | [address] | | | | | | [place], [place] | | | | | | [address] | | | | | | [phone] | | | +--------+ + + + [...]
--- OUTSIDE RECORDS SUMMARY | ~2019-12-22 | XMS | Encounter Summary ---
Demographics + + + | Address | [address] [place] [address] | | | [place] [address] | + + + | Home Phone [...] Team Providers + +------+ + | Care Wood Gang Sawyer Name | Role | Phone | + [...] | | | | | kidney | [place] | [address] | | | | | disease, | [place] | [address] | | | | | stage 4 | Nephrology | [place], | | | | | (severe) | [address] | [place] | | | | | Illness, | [address] | [address] | | | | | unspecified | [address] | Phone: | | | | | | [place], | [phone] | | | | | | [place] [address] | Fax: | | | | | | Phone: | [phone] | | | | | | [phone] | | | | | | | Fax: | | | | | | | [phone] | | +--------+--------+ + + + + Encounter Details +--------+---------+ + + + | Date | Type | Department | Care Team | Description | +--------+---------+ + + + | 09/05/ | Office | Food and Nutrition | Danielle Wilk[address] RD | Chronic kidney | | 2015 | Visit | Services at [facility] | [address] | disease, stage IV | | | | [address] | [facility] | (severe) (HCC) | | | | [address] | [place] [address] | (Primary Dx) | | | | [place], [address] | [phone] | | | | | [place], [place] | | | | | | [address] | | | | | | [phone] | | | +--------+---------+ + + + [...] No LE edema or muscle wasting. Hand lens cutter strength (HGS): L (non dominant but claims [...] | + +--------+ + + + | MD MNT INITIAL | Routin | 09/06/2015 | [...]
--- OUTSIDE RECORDS SUMMARY | ~2019-12-22 | XMS | Encounter Summary ---
Demographics + + + | Address | [address] [place] [address] | | | [place] [address] | + + + | Home Phone | | + + + | Preferred Language | Unknown | + + + | Marital Status | | + + + | Rastafari Affiliation | CHR | + + + [...] Team Providers + +------+ + | Care Civil Drafter Name | Role | Phone | + +------+ + | Hai Holman MD | PCP | | + +------+ + Encounter Details +--------+ + + + + | Date | Type | Department | Care Team | Description | +--------+ + + + + | 06/11/ | Hospital | LAB SURGICAL | | | | 2014 | Encounter | PATHOLOGY [address] | | | | | | [address] | | | | | | [place], [place] | | | | | | [address] | | | +--------+ + + + [...] mcg by mouth | | 0 | 05/18/20 | | | mcg oral tablet | [...] + | SURGICAL PATHOLOGY | Routin | 06/11/2015 | | Results for this | | | e | | | procedure are in the | | | | | | results section. | + +--------+ + + + documented in this encounter Results SURGICAL PATHOLOGY (06/11/2015) + + + + + + | Component | Value | Ref Range | Performed | Pathologist | | | | | At | Signature | + + + + + + | SURGICAL | SOURCE OF SPECIMEN:A | | [facility] | | | PATHOLOGY | [facility] | | DEPARTMENT | | | | Final Pathologic | | OF | | | | Diagnosis:[facility] | | PATHOLOGY | | | | biopsy: - Advanced | | | | | | nephrosclerosis - | | | | | | Chronic interstitial | | | | | | inflammation, | | | | | | nonspecific - | | | | | | Arteriosclerosis, mild | | | | | | to moderate - | | | | | | Insufficient for | | | | | | glomerular | | | | | | immunofluorescence | | | | | | - Unsuitable for | | | | | | glomerular electron | | | | | | microscopy Case | | | | | | reviewed by:Yuriy Zamarripa | | | | | | Nico Shelley | | | | | | /PathologistT:06/20/15:dc | | | | | | h | | | | | | Microscopic findings: | | | | | | One needle core is | | | | | | examined in two segments | | | | | | in 20levels, stained | | | | | | with hematoxylin and | | | | | | eosin, PAS, Govea, and | | | | | | trichromestains. | | | | | | About 40% of the sample | | | | | | is cortex; the rest is | | | | | | medulla and capsule. | | | | | | In onesegment, the | | | | | | capsule and medulla are | | | | | | by a | | | | | | relatively narrow zoneof | | | | | | dense cortical fibrosis | | | | | | and atrophy containing | | | | | | 21 sclerotic | | | | | | glomeruli.Another short | | | | | | segment of cortex | | | | | | contains a few groups of | | | | | | intact tubules andtwo | | | | | | apparently normal | | | | | | glomeruli. Parts of | | | | | | both medulla and cortex | | | | | | containdiffuse | | | | | | infiltrates and patches | | | | | | of lymphocytes. One | | | | | | small tubule containsa | | | | | | cast of smudgy | | | | | | basophilic cell debris. | | | | | | In other areas, | | | | | | inflammation isminor in | | | | | | both cortex and medulla. | | | | | | Several arteries are | | | | | | present. They | | | | | | aretortuous with mild or | | | | | | moderate fibrous | | | | | | intimal thickening. | | | | | | Direct | | | | | | Immunofluorescence | | | | | | Microscopy: Frozen | | | | | | sections, including | | | | | | positivecontrols, are | | | | | | stained by | | | | | | immunofluorescent | | | | | | technique. Positive | | | | | | results aregraded on a | | | | | | scale of 1-4+. This | | | | | | tissue contains no | | | | | | glomeruli, and | | | | | | isexamined only for | | | | | | light chains. | | | | | | RESULTS:Sprague: | | | | | | Scattered bright | | | | | | tubular castsLambda: | | | | | | Scattered bright tubular | | | | | | casts (Analyte | | | | | | specific reagents are | | | | | | used in many laboratory | | | | | | tests necessary | | | | | | forstandard medical | | | | | | care. This test | | | | | | was developed and its | | | | | | performancecharacteristi | | | | | | cs determined by [facility] | | | | | | laboratories. It | | | | | | has not been clearedor | | | | | | approved by the US Food | | | | | | and Drug Administration | | | | | | (FDA). FDA does | | | | | | notrequire this test to | | | | | | go through premarket FDA | | | | | | review. This test is | | | | | | used forclinical | | | | | | purposes. It | | | | | | should not be regarded | | | | | | as investigational or | | | | | | forresearch. This | | | | | | laboratory is certified | | | | | | under the Clinical | | | | | | LaboratoryImprovement | | | | | | Amendments (CLIA) as | | | | | | qualified to perform | | | | | | high complexityclinical | | | | | | laboratory testing.) | | | | | | Electron Microscopy: | | | | | | This part of the sample | | | | | | contains at least | | | | | | 16glomeruli, all of them | | | | | | densely sclerotic. They | | | | | | are not examined. | | | | | | Clinical History:The | | | | | | patient is a 44-year-old | | | | | | man with a history of | | | | | | impaired renal | | | | | | functionand recent | | | | | | accelerated rise in | | | | | | creatinine (latest serum | | | | | | creatinine 4.1mg/dL, up | | | | | | from 1.7-1.9 mg/dL | | | | | | baseline). He has a | | | | | | history of | | | | | | interstitialnephritis, | | | | | | NOS ([facility]-read biopsy; | | | | | | limited sample by | | | | | | report, 10/26). He | | | | | | haslow-grade | | | | | | proteinuria. Recent | | | | | | medications include | | | | | | antibiotics | | | | | | andibuprofen, and he has | | | | | | been taking Losartan. | | | | | | He has a history of | | | | | | Crohn'sdisease; and had | | | | | | been off | | | | | | immunosuppression since | | | | | | 03/2014; methotrexate | | | | | | andbudesonide restarted | | | | | | in 05/2015. His ADAM is | | | | | | positive at 1:80. | | | | | | Gross Description:The | | | | | | specimens are received | | | | | | from Dr. Christine Martinez, | | | | | | Varun Jaime, | | | | | | labeled "left kidney | | | | | | core," and with the | | | | | | patient name | | | | | | (initialsKW). Received | | | | | | in formalin is one | | | | | | needle core segment of | | | | | | tissue, measuring2.1 cm | | | | | | in length x 0.1 cm in | | | | | | uniform diameter, which | | | | | | are submitted in totofor | | | | | | light microscopy in one | | | | | | cassette (KR). | | | | | | Received in Perfecto's | | | | | | transportmedium is one | | | | | | needle core segment of | | | | | | tissue, measuring 0.3 cm | | | | | | in length x0.1 cm in | | | | | | uniform diameter, which | | | | | | is submitted in toto | | | | | | forimmunofluorescence | | | | | | microscopy (EG). | | | | | | Received in | | | | | | glutaraldehyde is | | | | | | oneneedle core segment | | | | | | of tissue, measuring 0.6 | | | | | | cm in length x 0.1 cm | | | | | | inuniform diameter, | | | | | | which are submitted in | | | | | | toto for electron | | | | | | microscopy (EG). | | | | | | :olga lidia My | | | | | | electronic signature | | | | | | indicates that I have | | | | | | personally reviewed | | | | | | alldiagnostic slides, | | | | | | the gross and/or | | | | | | microscopic portion of | | | | | | thisreport and | | | | | | formulated the final | | | | | | diagnosis. | | | | | | Rendering Diagnostician: | | | | | | Yuriy Shelley | | | | | | NicoPathologistElectroni | | | | | | krista Signed 06/20/2015 | | | | | | 2:59PM | | | | + + + [...] + | [facility] DEPARTMENT [facility] | [address] | [place] [address] | | | PATHOLOGY | DANO AMADO | | | + + + + + documented in this encounter Visit Diagnoses Not on filedocumented in this encounter
--- OUTSIDE RECORDS SUMMARY | ~2019-12-22 | XMS | Encounter Summary ---
Demographics + + + | Address | [address] | | | [place] [address] | + + + | Home Phone [...] [place], [place] | | | | | [address] | | + + + + + | Misty Boateng | ECON | [address] | | | | | [place] | | | | | [address] | | + + + + + Care Team Providers + +------+ + | Care Financial Institution Treasurer Name | Role | Phone | + [...] BIOPSY | | | | [address] | [place] | | | | | [place] | [address] | | | | | [address] | [phone] | | | | | [phone] | | | +--------+---------+ + + + [...] Rozina Baird, peritoneal dialys is nurse, at [phone]. documented in this encounter Medications at Time [...] [address] | | | | | | [place] [address] | | | | | | [phone] | | | | | | | [...] mL/min/1.73m2 | [facility] | | | [facility] | RATE,ESTIMATED | | MEDICAL | | | | mL/min/1.07m8Yawb than | | CENTER - | | [...] + | [facility] | [address] | [place] | [phone] | | [facility] | | [address] | | | - LABORATORY | | [...] [address] | [place] | [phone] | | [facility] | | [address] | | | - LABORATORY | | [...] COMPARISON: None. PROTOCOL: After explaining the | [facility] | | risks and benefits of the [...] | + + + + + | [facility] | [address] | [place] | [phone] | | [facility] | | [address] | | | - IMAGING | | [...] + + | Performing | Address | City/State/[facility] | Phone Number | | Organization | | | | + + + + + | JULIO BETANCOURT. | [address] | [place] | [phone] | | [facility] | | [address] | | | - LABORATORY | | [...]
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
--- OUTSIDE RECORDS SUMMARY | ~2019-12-22 | XMS | Encounter Summary ---
Demographics + + + | Address | [address] | | | [place] [address] | + + + | Home Phone [...] | [facility] | | | and [place] | + [...] [place], [place] | | | | | [address] | | + + + + + | Misty Boateng | ECON | [address] | | | | | [place] | | | | | [address] | | + + + + + Care Team Providers + +------+ + | Care Digital Campaign Specialist Name | Role | Phone | + +------+ + | Jt Perkins MD | PCP | | + +------+ + Encounter Details +--------+ + + + + | Date | Type | Department | Care Team | Description | +--------+ + + + + | 03/17/ | Orders Only | [facility] [place] | Christine Martinez, | CKD (chronic kidney | | 2019 | | NEPHROLOGY [address] | disease) stage 4, | | | | [address] | [address] [place] | GFR 15-29 ml/min | | | | [place] | [place] [address] | ([facility]) (Primary Dx) | | | | [address] | [phone] | | | | | [phone] | | | +--------+ + + + [...] | | | | | [place] [address] | | | | | | [phone] | | | | | | | | +--------+---------+ + + + documented as of this encounter Visit Diagnoses + + | Diagnosis | + + | CKD (chronic kidney disease) stage 4, GFR 15-29 ml/min ([facility]) - Primary Chronic kidney | | disease, Stage IV (severe) | + + documented in this encounter"
--- OUTSIDE RECORDS SUMMARY | ~2019-12-22 | XMS | Encounter Summary ---
Demographics + + + | Address | [address] | | | [place] [address] | + + + | Home Phone [...] [place], [place] | | | | | [address] | | + + + + + | Misty Boateng | ECON | [address] | | | | | [place], [place] | | | | | [address] | | + + + + + Care Team Providers + +------+ + | Care Oven Operator Automatic Name | Role | Phone | + +------+ + PCP | Unavailable | + +------+ + Encounter Details +--------+ + + + + | Date | Type | Department | Care Team | Description | +--------+ + + + + | 11/19/ | Orders Only | [facility] | Pan Jhaveri MD | Crohn's disease with | | 2015 | | MED CTR XRAY [address] | [address] | other complication | | | | [place] | [place] | ([facility]) | | | | [place] [address] | [address] | | | | | [phone] | [phone] | | | | | | | [...] | | | | | [place] [id number] | | | | | | [phone] | | | | | | | | +--------+---------+ + + + documented as of this encounter Visit Diagnoses + + | Diagnosis | + + | Crohn's disease with other complication | + + documented in this encounter"
--- OUTSIDE RECORDS SUMMARY | ~2019-12-22 | XMS | Encounter Summary ---
Demographics + + + | Address | [address] | | | [place] [address] | + + + | Home Phone [...] [place], [place] | | | | | [address] | | + + + + + | Misty Boateng | ECON | [address] | | | | | [place], [place] | | | | | [address] | | + + + + + Care Team Providers + +------+ + | Care Dinking Machine Operator Name | Role | Phone [...] | NEPHROLOGY [address] | [address] | | | | | [address] | [address] [place] | | | | | [place], [place] | [place] [address] | | | | | [address] | [phone] | | | | | [phone] | | | +--------+ + + + [...] | | | | | [place] [address] | | | | | | [phone] | | | | | | | | +--------+---------+ + + + documented as of this encounter Visit Diagnoses Not on filedocumented in this encounter"
--- OUTSIDE RECORDS SUMMARY | ~2019-12-22 | XMS | Encounter Summary ---
Demographics + + + | Address | [address] [place] [address] | | | [place] [address] | + + + | Home Phone [...] Team Providers + +------+ + | Care Womens Health Nurse Practitioner Name | Role | Phone [...] reminder) | | | | Kait Barrios [place], | [place], [place] | | | | | [place] [address] | [address] | | | | | [phone] | | | +--------+ + + + [...]
--- OUTSIDE RECORDS SUMMARY | ~2019-12-22 | XMS | Encounter Summary ---
Demographics + + + | Address | [address] | | | [place] [address] | + + + | Home Phone [...] [place], [place] | | | | | [address] | | + + + + + | Misty Boateng | ECON | [address] | | | | | [place], [place] | | | | | [address] | | + + + + + Care Team Providers + +------+ + | Care Criminology Teacher Name | Role | Phone | [...] NEPHROLOGY [address] | M, DO [address] | | | | | [address] | [place] | | | | | [place], [place] | [place], [place] | | | | | [address] | [address] | | | | | [phone] | | | +--------+ + + + [...] Donaldson - 09/26/2016 9:49 AM PSTOutside record: [facility] progress note, dos: 3-3-17 . Sent to [...] | | | | | [place] [address] | | | | | | [phone] | | | | | | | | +--------+---------+ + + + documented as of this encounter Visit Diagnoses Not on filedocumented in this encounter"
--- OUTSIDE RECORDS SUMMARY | ~2019-12-22 | XMS | Encounter Summary ---
Demographics + + + | Address | [address] | | | [place] [address] | + + + | Home Phone | | + + + | Preferred Language | Unknown | + + + | Marital Status | | + + + | Rastafari Affiliation | 1041 | + + + | Race | Unknown | + + + | Ethnic Group | Unknown | + + + Author + + + | Author | [facility] | | | and [place] | + + + | Organization | [facility] | | | and [place] | + + + | Address | Unknown | + + + | Phone | Unavailable | + + + Support + + + + + | Name | Relationship | Address | Phone | + + + + + | Ryan Oneill | ECON | [place], [place] | | | | | [address] | | + + + + + | Misty Boateng | ECON | [address] | | | | | [place], [place] | | | | | [address] | | + + + + + Care Team Providers + +------+ + | Care Ocean Fishing Guide Name | Role | Phone | [...] | NEPHROLOGY [address] | [address] | | | | | [address] | [address] [place] | | | | | [place], [place] | [place] [address] | | | | | [address] | [phone] | | | | | [phone] | | | +--------+ + + + [...] | | | | | [place] [address] | | | | | | [phone] | | | | | | | | +--------+---------+ + + + documented as of this encounter Procedures + +--------+ + + + | Procedure Name | Priori | Date/Time | Associated Diagnosis | Comments | | | ty | | | | + +--------+ + + + | EXTERNAL LAB: [facility] | Routin | 07/24/2015 | | Results [...]
--- OUTSIDE RECORDS SUMMARY | ~2019-12-22 | XMS | Encounter Summary ---
Demographics + + + | Address | [address] | | | [place] [address] | + + + | Home Phone | | + + + | Preferred Language | Unknown | + + + | Marital Status | | + + + | Gnosticism Affiliation | 1041 | + + + [...] [place], [place] | | | | | [address] | | + + + + + | Misty Boateng | ECON | [address] | | | | | [place] | | | | | [address] | | + + + + + Care Team Providers + +------+ + | Care Scheduler Name | Role | Phone | [...] + + | 08/20/ | Telephone | [facility] | Christine Martinez, | Hypertension | | 2016 | | NEPHROLOGY [address] | [address] | | | | | [address] | [address] [place] | | | | | [place], [place] | [place] [address] | | | | | [address] | [phone] | | | | | [phone] | | | +--------+ + + + [...] 2020 | Visit | | [address] | | | | | | [address] [place] | | | | | | [place] [address] | | | | | | [phone] | | | | | | | | +--------+---------+ + + + documented as of this encounter Visit Diagnoses Not on filedocumented in this encounter"
--- OUTSIDE RECORDS SUMMARY | ~2019-12-22 | XMS | Encounter Summary ---
Demographics + + + | Address | [address] | | | [place] [address] | + + + | Home Phone [...] [place], [place] | | | | | [address] | | + + + + + | Misty Boateng | ECON | [address] | | | | | [place] | | | | | [address] | | + + + + + Care Team Providers + +------+ + | Care Cafeteria Aide Name | Role | Phone | + [...] | NEPHROLOGY [address] | [address] | | | | | [address] | [address] [place] | | | | | [place], [place] | [place] [address] | | | | | [address] | [phone] | | | | | [phone] | | | +--------+ + + + [...] 2019 | Visit | | [address] | | | | | | [address] [place] | | | | | | [place] [address] | | | | | | [phone] | | | | | | | [...] | 1.017 | | | | | [place], | | | | | | External [...]
--- OUTSIDE RECORDS SUMMARY | ~2019-12-22 | XMS | Encounter Summary ---
Demographics + + + | Address | [address] | | | [place] [address] | + + + | Home Phone | | + + + | Preferred Language | Unknown | + + + | Marital Status | | + + + | Mandaeism Affiliation | 1041 | + + + | Race | Unknown | + + + | Ethnic Group | Unknown | + + + Author + + + | Author | [facility] | | | and [place] | + + + | Organization | [facility] | | | and [place] | + + + | Address | Unknown | + + + | Phone | Unavailable | + + + Support + + + + + | Name | Relationship | Address | Phone | + + + + + | Ryan Oneill | ECON | [place], [place] | | | | | [address] | | + + + + + | Misty Boateng | ECON | [address] | | | | | [place], [place] | | | | | [address] | | + + + + + Care Team Providers + +------+ + | Care Gas Distribution Plant Operator Name | Role | Phone | + +------+ + PCP | Unavailable | + +------+ + Encounter Details +--------+ + + + + | Date | Type | Department | Care Team | Description | +--------+ + + + + | 01/27/ | Orders Only | [facility] [place] | Christine Martinez W, | CKD (chronic kidney | | 2017 | | NEPHROLOGY [address] | [address] | disease) stage 4, | | | | [address] | [address] [place] | GFR 15-29 ml/min | | | | [place], [place] | [place] [address] | ([facility]) (Primary Dx) | | | | [address] | [phone] | | | | | [phone] | | | +--------+ + + + [...] encounter Progress Notes Kenyatta Jacome RN - 01/27/2017 1:52 PM PDTInterpath 02/17/17 documented in this encounter Plan of Treatment +--------+---------+ + + + | Date | Type | Specialty | Care Team | Description | +--------+---------+ + + + | 03/20/ | Office | Nephrology | Christine Martinez, | | | 2019 | Visit | | [address] | | | | | | [address] [place] | | | | | | [place] [address] | | | | | | [phone] | | | | | | | | +--------+---------+ + + + documented as of this encounter Visit Diagnoses + + | Diagnosis | + + | CKD (chronic kidney disease) stage 4, GFR 15-29 ml/min ([facility]) - Primary Chronic kidney | | disease, Stage IV (severe) | + + documented in this encounter"
--- OUTSIDE RECORDS SUMMARY | ~2019-12-22 | XMS | Encounter Summary ---
Demographics + + + | Address | [address] | | | [place] [address] | + + + | Home Phone | | + + + | Preferred Language | Unknown | + + + | Marital Status | | + + + | Advent Affiliation | 1041 | + + + | Race | Unknown | + + + | Ethnic Group | Unknown | + + + Author + + + | Author | [facility] | | | and [place] | + + + | Organization | [facility] | | | and [place] | + + + | Address | Unknown | + + + | Phone | Unavailable | + + + Support + + + + + | Name | Relationship | Address | Phone | + + + + + | Ryan Oneill | ECON | [place], [place] | | | | | [address] | | + + + + + | Misty Boateng | ECON | [address] | | | | | [place], [place] | | | | | [address] | | + + + + + Care Team Providers + +------+ + | Care Information Assistant Name | Role | Phone | [...] | NEPHROLOGY [address] | [address] | | | | | [address] | [address] [place] | | | | | [place], [place] | [place] [address] | | | | | [address] | [phone] | | | | | [phone] | | | +--------+ + + + [...] | | | | | [place] [address] | | | | | | [phone] | | | | | | | [...] 1.005 - 1.030 | | | | [place], | | | | | | External [...]
--- OUTSIDE RECORDS SUMMARY | ~2019-12-22 | XMS | Clinical Summary ---
Demographics + + + | Address | [address] [place] [address] | | | [place] [address] | + + + | Home Phone [...] Providers + +------+ + | Care Commercial Lending Assistant Name | Role | Phone | + +------+ + | Jt Perkins MD | PCP | | + +------+ + Source Comments [facility] is fully live on both [facility] and [facility] Allergies + + + + + + [...] | | Renal Bx: 11/25: Interstitial nephritis. ([place]'s, | | [place]) 4. Corticosteroids instituted: . Negative | | [...] [place], | | | | | | CUT AND COVER LINE WORKER | | +--------+ + + + [...] | 2019 | Visit | Medicine | CUT AND COVER LINE WORKER | examination (Primary | | | | [...] + + + + | 11/27/ | Dairy And Food Laboratory Assistant | Otolaryngology | Tim Skinner MD | [...] | SERVICES, | | | | (initials [place]) and | | [place] [facility] | | | | medical record number | | [facility] + | | | | [id number]. Neck, Left | | HEALING | | [...] identified. | | | | | | Livestock Haulier sections | | | | | | are submitted. Cassette | | | | | | Summary:A1-2, nodule 1, | | | | | | bisectedA3, nodule | | | | | | 2A4-5, business office representative | | | | | | [...] | | | | | determined by [facility] | | | | | | laboratories. [...] + + + + + | [facility] DEPARTMENT | [address] | [place] [address] | | | PATHOLOGY | [address] | | | + + + + + | [facility] | [address] | [place] [address] | | | SERVICES, [place] [facility] | | | | | HEALTH [...] | | its performance characteristics determined by [facility]ie. It | | | has not been [...] + + + + + | [facility] | [address] | [place] [address] | | | AD[address]N RANKIN | Kait [...] | PACIFI | [id number] | 02/18/20 | [phone] | [address] | [address] | | | [facility] | | [address] | [address] | | | [address] | | sent | | [place] | | | | | | | | , [place] | | | | | | | | [address] | | + +--------+ +--------+ + +------+ + +--------+ +--------+ + + | Guarantor Name | Accoun | Relation to | Date | Phone | Billing Address | | | t Type | Patient | of | | | | | | | | | | + +--------+ +--------+ + + | Seema Oneill | Person | Self | [birth year] | | [address] | | | al/Fam | | 1970 | [phone] | [place], [place] | | | greg | | | 6 (Home) | [address] | + +--------+ +--------+ + + | Seema Oneill | Specia | Self | [birth year] | | [address] | | | l | | 1970 | [phone] | [place], [place] | | | [place] | | | 6 (Home) | [address] | | | g | | | [...]
--- OUTSIDE RECORDS SUMMARY | ~2019-12-22 | XMS | Encounter Summary ---
Demographics + + + | Address | [address] | | | [place] [address] | + + + | Home Phone [...] [place], [place] | | | | | [address] | | + + + + + | Misty Boateng | ECON | [address] | | | | | [place] | | | | | [address] | | + + + + + Care Team Providers + +------+ + | Care Pipe Turner Name | Role | Phone | [...] + + | 12/29/ | Telephone | [facility] | Christine Martinez W, | Blood Pressure; | | 2018 | | NEPHROLOGY [address] | [address] | Medication | | | | [address] | [address] [facility] | Management | | | | [place] | [place] [address] | (amlodipine) | | | | [address] | [phone] | | | | | [phone] | | | +--------+ + + + [...] | | | | | | [place] [address] | | | | | | [phone] | | | | | | | | +--------+---------+ + + + documented as of this encounter Visit Diagnoses Not on filedocumented in this encounter"
--- OUTSIDE RECORDS SUMMARY | ~2019-12-22 | XMS | Encounter Summary ---
Demographics + + + | Address | [address] [place] [address] | | | [place] [address] | + + + | Home Phone | | + + + | Preferred Language | Unknown | + + + | Marital Status | | + + + | Advent Affiliation | CHR | + + + | Race | White | + + + | Ethnic Group | Not or | + + + Author + + + | Author | [facility] | + + + | Organization | [facility] | + + + | Address | Unknown | + + + | Phone | Unavailable | + + + Support + + +---------+ + | Name | Relationship | Address | Phone | + + +---------+ + | Misty Oneill | ECON | Unknown | | + + +---------+ + Care Team Providers + +------+ + | Care Surgical Clinical Reviewer Name | Role | Phone | + [...] 2016 | | Transplant Services | RN [address] | add) | | | | [address] [facility] [address] | [address] | | | | | Kait Barrios [place], | [place], [place] | | | | | [place] [address] | [address] | | | | | [phone] | | | +--------+ + + + [...]
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
--- OUTSIDE RECORDS SUMMARY | ~2019-12-22 | XMS | Encounter Summary ---
Demographics + + + | Address | [address] [place] [address] | | | [place] [address] | + + + | Home Phone [...] Team Providers + +------+ + | Care Flatware Maker Name | Role | Phone | + +------+ + | Hai Holman MD | PCP | | + +------+ + Reason for Visit + + + | Reason | Comments | + + + | Lab Results | ABO: 04/08/14 | + + + Encounter Details +--------+ + + + + | Date | Type | Department | Care Team | Description | +--------+ + + + + | 09/20/ | Abstract | Clinical | Santos Lorenzo, | Lab Results (ABO: | | 2015 | | Transplant Services | [address] | 04/08/14) | | | | [address] | [address] | | | | | [place], | [place], [place] | | | | | [place] [address] | [address] | | | | | [phone] | [phone] | | | | | | | [...] ABO & RH TYPE | Routin | 04/08/2014 | | Results for this | | | e | | | procedure are in the | | | | | | results section. | + +--------+ + + + documented in this encounter Results ABO & RH TYPE (04/08/2014) + + + + + + | Component | Value | Ref Range | Performed | Pathologist | | | | | At | Signature | + + + + + + | [facility]BO GROUP | O | | [facility] | | + + + + + + | RH TYPE | Positive | | [facility] | | [facility] | | | | | | [facility] | | + + + + + [...] | + + + + + | [facility] | [address] [facility] | [place] [address] | [phone] | | CENTER | | | | + + + + + documented in this encounter Visit Diagnoses Not on filedocumented in this encounter"
--- OUTSIDE RECORDS SUMMARY | ~2019-12-22 | XMS | Encounter Summary ---
Demographics + + + | Address | [address] | | | [place] [address] | + + + | Home Phone [...] [place], [place] | | | | | [address] | | + + + + + | Misty Boateng | ECON | [address] | | | | | [place], [place] | | | | | [address] | | + + + + + Care Team Providers + +------+ + | Care Electrical High Tension Tester Name | Role | Phone | [...] | NEPHROLOGY [address] | disease) stage 4, | | | | [address] | [address] [place] | GFR 15-29 ml/min | | | | [place], [place] | [place] [address] | ([facility]) (Primary Dx) | | | | [address] | [phone] | | | | | [phone] | | | +--------+ + + + [...] | | | | | [place] [address] | | | | | | [phone] | | | | | | | | +--------+---------+ + + + documented as of this encounter Visit Diagnoses + + | Diagnosis | + + | CKD (chronic kidney disease) stage 4, GFR 15-29 ml/min ([facility]) - Primary Chronic kidney | | disease, Stage IV (severe) | + + documented in this encounter"
--- OUTSIDE RECORDS SUMMARY | ~2019-12-22 | XMS | Encounter Summary ---
Demographics + + + | Address | [address] [place] [address] | | | [place] [address] | + + + | Home Phone [...] Team Providers + +------+ + | Care Inner Tube Cutter Name | Role | Phone | + +------+ + | Jt Perkins MD | PCP | | + +------+ + Encounter Details +--------+ + + + + | Date | Type | Department | Care Team | Description | +--------+ + + + + | 06/17/ | Lab | LAB IMMUN[facility]ENETIC | | | | 2015 | Requisition | [facility] | | | | | | [address] | | | | | | [place], | | | | | | [place] [address] | | | +--------+ + + + [...] FLOW HLA AB PRA | Routin | 06/17/2016 | End stage renal | | | SCREEN I/II KE | e | 4:31 PM | disease (HCC) | | | | | PST | | | + +--------+ + + + documented in this encounter Results LIT FLOW HLA AB PRA SCREEN I/II KE (06/17/2016 4:31 PM PST) + + | Specimen | + + | Blood - Blood | | (substance) | + + + + + + + | Performing | Address | City/State/Zipcode | Phone Number | | Organization | | | | + + + + + | [facility] | [address] | [place] [address] | | | IMMUNOGENETICS/TRANS | [address] | | | | [facility] | | | | + + + + + documented in this encounter Visit Diagnoses + + | Diagnosis | + + | End stage renal disease (HCC) End stage renal disease | + + documented in this encounter"
--- OUTSIDE RECORDS SUMMARY | ~2019-12-22 | XMS | Encounter Summary ---
Demographics + + + | Address | [address] [place] [address] | | | [place] [address] | + + + | Home Phone [...] Team Providers + +------+ + | Care Vulcanized Fiber Unit Operator Name | Role | Phone [...] | | Work [address] | [address] [facility] [address] | | | | | Michelle Adam | [address] [facility] | | | | | [address], [address] | [address] [place], [place] | | | | | [address] [place], [place] | [address] | | | | | [address] | [phone] | | | | | [phone] | | | +--------+ + + + [...]
--- OUTSIDE RECORDS SUMMARY | ~2019-12-22 | XMS | Encounter Summary ---
Demographics + + + | Address | [address] [place] [address] | | | [place] [address] | + + + | Home Phone [...] Providers + +------+ + | Care Digital Advertising Analyst Name | Role | Phone | + +------+ + | Jt Perkins MD | PCP | | + +------+ + Encounter Details +--------+ + + + + | Date | Type | Department | Care Team | Description | +--------+ + + + + | 11/21/ | MyChart | Otolaryngology | Tim Skinner MD | pathology. | | 2020 | Encounter | Head and Neck | [address] | | | | | Surgery Services at | [place], | | | | | [facility] [address] | [place] [address] | | | | | [address] Mailcode: | [phone] | | | | | [facility] | | | | | | and Healing, | | | | | | [address] | | | | | | [place], [place] | | | | | | [address] | | | | | | [phone] | | | +--------+ + + + [...] Comments: Stopped cigaretes in 2002, stopped chewing 2011. | + + + + +---------+ + [...]
--- OUTSIDE RECORDS SUMMARY | ~2019-12-22 | XMS | Encounter Summary ---
Demographics + + + | Address | [address] [place] [address] | | | [place] [address] | + + + | Home Phone [...] + + + | Author | [facility] | + + + | Organization | [facility] | + + + | Address | Unknown | + + + | Phone | Unavailable | + + + Support + + +---------+ + | Name | Relationship | Address | Phone | + + +---------+ + | Misty Oneill | ECON | Unknown | | + + +---------+ + Care Team Providers + +------+ + | Care Workshop Manager Name | Role | Phone | + +------+ + | Hai Holman MD | PCP | | + +------+ + Reason for Visit + + + | Reason | Comments | + + + | New patient | | | consultation | | + + + Office Visit - E/M Services (Routine) +--------+ + + + + + | Status | Reason | Specialty | Diagnoses / | Referred By | Referred To | | | | | Procedures | Contact | Contact | +--------+ + + + + + | Closed | Specialty | Nephrology | Diagnoses | Fredy, | Royal, | | | Services | | 2nd opinion | Jah Shirley MD | Vitaliy Tompkins MD | | | Required | | CKD | [address] | | | | | Procedures | [address] | Davion Carballo | | | | | CONSULT TO | [address] | | | | | NEPHROLOGY | [place], | [place], [place] | | | | | | [place] [address] | [address] | | | | | | Phone: | | | | | | | [phone] | | | | | | | Fax: | | | | | | | [phone] | | +--------+ + + + + + Encounter Details +--------+---------+ + + + | Date | Type | Department | Care Team | Description | +--------+---------+ + + + | 03/12/ | Office | Nephrology & | Vitaliy Paige, | Acute Interstitial | | 2008 | Visit | Hypertension at [facility] | MD | Nephritis (Primary | | | | [address] | | Dx); Other | | | | [facility] | | Nonspecific Finding | | | | Pavilion, 3rd floor | | on Examination of | | | | [place], [place] | | Urine | | | | [address] | | | | | | [phone] | | | +--------+---------+ + + + [...] + + + | Blood Pressure | 120/78 | 03/12/2009 9:20 AM | | | | | PDT | | + + + + + | Pulse | 106 | 03/12/2009 9:20 AM | | | | | PDT | | + + + + + | Temperature | 36.8 C (98.2 F) | 03/12/2009 9:20 AM | | | | | PDT | | + + + + + | Respiratory Rate | 18 | 03/12/2009 9:20 AM | | | | | PDT | | + + + + + | Oxygen Saturation | 96% | 03/12/2009 9:20 AM | | | | | PDT | | + + + + + | Inhaled Oxygen | - | - | | | Concentration | | | | + + + + + | Weight | 87.7 kg (193 lb 4.8 | 03/12/2009 9:20 AM | | | | oz) | PDT | | + + + + + | Height | 182.9 cm (6') | 03/12/2009 9:20 AM | | | | | PDT | | + + + + + | Body Mass Index | 26.22 | 03/12/2009 9:20 AM | | | | | PDT | | + + + + + documented in this encounter Progress Notes Vitaliy Paige MD - 03/12/2009 10:57 AM PDT Addended by: VITALIY PAIGE MD on: 03/12/20 09 Modules accepted: Orders italiy Paige MD - 03/12/2009 9:25 AM PDT Seema Oneill is a 38 year old male referred by Dr. Max Holman for a second opinion. Mr. 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 Currently followed for nephrology issues by Dr. Carlito Gaona in [place], [place]. He is being m anaged for interstitial nephritis based on a bx (October) done in [place], [place]. Initial medicine evaluation was for persistent/recurrent fever, chills, night sweats, weigh t loss (20+ pounds). Symptom onset was after the first of this year. He was treated with emp iric antibiotics (does not remember the names) for 4 weeks with no response. Ultimately saw Dr. Max Holman in [place]. W/U identified elevated Scr and pyuria. He was referred to Dr.La deon Mccray (urology) in August for further evaluation (including abnormal US of R kidney). At that first visit there was concern for a unilateral R renal lesion based on abnormal u/a and renal US. Further evaluation including CT did not identify a mass or space occupying le benson and we was ultimately considered to have no urologic disease. There was no evidence of a UTI. However, as part of his evaluation acute appendicitis was identified and he was referred to Dr. Jah Daniel for appendectomy (September). He underwent uneventful appendectomy, but did not benefit relative to subjective sxs of abdominal discomfort, fevers/chills. He was further ev aluated and ultimately dxed with acute cholecystitis. In January he had an uneventful lap sadaf and continues to recover. There was no evidence of vasculitis in either of the path specime ns. As part of his surgical evaluation he underwent both an EGD and colonoscopy (November). The EGD identified antral gastritis and the colonoscopy changes were consistent with ulcerative coli tis. There was no histologic evidence of vasculitis. He was begun on Asacol and oral prednis one Because of progressive evidence of renal dysfunction, he was referred to Dr. Carlito Gaona for nephrologic evaluation. A complete serologic evaluation had been completed by Dr. Holman with negative or normal findings (normal compliments, negative ADAM, anti-DNA, ANCA, antiHCV and HbsAg). Both an SPEP and UPEP with IEP were negative for evidence of monoclonal disease. Ser um free light chains did identify elevated kappa FLC, but the kappa/lambda ratio was normal. He was mildly anemic and Fe deficient. There was no eosinophilia, but his CRP was elevated. He was reported to have evidence of recent EBV infection and a dx of mononucleosis was ente rtained. He underwent renal bx in October. By report the specimen was lost with only a fragment of tis chantell reaching the pathologists at . 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 The few glomeruli present were normal by LM, IF and EM. Base d on this dx, Dr. Gaona recommended continuation of his corticosteroids at 60mg daily. Valsa rtan was also added to the regimen. Following the addition of the corticosteroids, his systemic sxs of fever, night sweats, chi lls and weight loss all promptly resolved. He has regained all of the 20 pounds of weight he lost earlier in the year and continues to add body weight. He believes this is consequent t o steroid induced appetite enhancement and a remarkable reduction in his physical exercise. At time of his last urology visit in January, he was told that he had progressive CKD and woul d reach ESRD. It was recommended that he seek "medical skilled nursing" and be referred for renal transplantation. These thoughts were based on a progressive rise in his serum creatinine, w hich in January was 2.22 Other than his rxed meds, he has chronically taken multiple and varied "supplements". As de scribed, these include vitamins, creatinine, alpha lipoic acid, protein supplements, muscle recovery agents, some herbs, DHEA, L carnitine. He has not used supplements since September. He denied the use of anabolic steroids. Also chronically used ibuprofen ("popped like candy"). for management of "migraine". Used 3-5 tablets at a time, multiple times during day and sinc e age 19. Continues to use them episodically, but at appropriate doses. Is aware of the pote ntial impact on kidneys and is now using much less. He was on Lamictal for an undetermined p eriod of time. That was drug was stopped early in his evaluation for his presenting sxs. Subjectively, he is not tolerating his current therapy. 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 Since his lap sadaf he has had painful knees and ankles as well as "stiff back". The joint changes are made better by elevation. No acute inflammation. His vision has been blurry. All these sxs are worse since steroid boluses at time of surgery. He also notes increasing issues with "acne". The changes are primarily truncal (front and b ack) with no facial changes and no pruritis. He denies any skin lesions as part of his initi al presentation, the same with joint sxs. He has noted intermittent "tarry stools". There has been no documentation to his knowledge of melena or hematochezia. Currently he has other non specific GI sxs (gas, some urgency, oc casional diarrhea and occasional rectal pressure). He has experienced some voiding dysfxn characterized by mid stream hesitancy and discomfort . Notes multi-nocturia. Sleeping poorly: not sure why. No cardio-pulm sxs, although he has felt like he has phlegm in his chest. No mucus membrane sxs/changes. A complete 10 point ROS is negative other than as noted above. 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 Alcohol Use: Yes Rare Drug Use: No Social History Narrative [place]. . 2 healthy children. 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 ferrous sulfate (IRON) 325 mg (65 mg Iron) Oral Tablet Take 325 mg by mouth. three alondra y mesalamine EC (ASACOL) 400 mg Oral Tablet, Delayed Release (E.C.) Take 400 mg by mouth. 2 three times daily omeprazole (PRILOSEC) 20 mg Oral Capsule, Delayed Release(E.C.) Take 20 mg by mouth onc e daily. predniSONE 20 mg Oral Tablet Take 60 mg by mouth once daily. valsartan (DIOVAN) 80 mg Oral Tablet Take 80 mg by mouth once daily. Vitals: Ht 182.9 cm (6')( < 3 %ile), Wt 87.68 kg (193 lbs 4.8 oz)( < 3 %ile), BP 120/78, Pu lse 106, Temperature 36.8 C (98.2 F), Temperature source Forehead, RR 18, SpO2 96%. HEENT: No adenopathy. Normal oropharynx CHEST: Clear bilaterally COR: Regular rhythm. Soft DAVON. No diastolic murmur. No S3 or S4. No rub. No significant nec k vein distention. VASCULAR: No bruits at any location. Pulses intact ABD: Soft with 1+ tenderness in the RUQ. No palpable organomegaly or mass. EXT: No peripheral or sacral edema SKIN: Punctate truncal lesions that are red, discreet and non blanching. Some have a linear configuration. No pustules. Turgor normal. Several tattoos. NEURO: Screening exam normal Lab: POC u/a: Trace blood and negative protein. Micro: 3-5 WBC and 0-2 RBC. No casts. 01/04/2009 00:00 01/26/2009 00:00 03/12/2009 09:30 03/12/2009 11:04 SODIUM (LAB) 138 137 142 POTASSIUM (LAB) 5.0 4.5 4.8 CHLORIDE 104 103 105 TOTAL CO2 26.3 24.7 32 (H) BUN 31 28 32 (H) CREATININE,PLASMA 2.04 2.22 2.04 (H) GLUCOSE, PLASMA (LAB) 150 (A) 137 (A) 73 CALCIUM (LAB) 9.1 8.9 9.1 MAGNESIUM (LAB) 2.12 PHOSPHORUS (LAB) 2.5 3.9 3.3 ALBUMIN (LAB) 3.7 3.9 3.9 SEDIMENTATION RATE 8 WHITE CELL COUNT 13 8.0 10.4 HEMOGLOBIN 11.8 11.7 13.9 HEMATOCRIT 38.2 35.8 40.6 (L) PLATELET COUNT 330 274 247 NEUTROPHIL % 92 (H) LYMPHOCYTE % 4 (L) MONOCYTE % 4 EOS % 0 (L) BASO % 0 NEUTROPHIL # 9.6 (H) LYMPHOCYTE # 0.4 (L) MONOCYTE # 0.4 EOS # 0.0 BASO # 0.0 IRON SERUM 57 40 IRON BIND CAP SERUM 339 % SAT TRANSFERRIN 19.6 11.8 FERRITIN, SERUM 194 184 Assessment: 1. Acute kidney injury with a histologic dx of AIN: no evidence of glomerular involvement a nd sub gram proteinuria. Negative serologic evaluation. U/A consistent with AIN. 2. Multi-system sxs at presentation: now resolved 3. Bx proven colitis: etiology not determined. Temporally associated dx of cholecystitis an d appendicitis and possible recent EBV infection. 4. Hx of significant OTC supplement/ herb and NSAID use 5. Abnormal skin exam: potentially steroid related but can't exclude an inflammatory lesion . 6. High dose corticosteroid therapy with treatment associated side effects. The picture is consistent with AIN, likely on a hypersensitivity basis. The culprits are no t known, but there are multiple possibilities largely in the supplements and NSAIDs he was u sing at presentation. I am not aware of AIN associated with Lamictal exposure. It is reporte d that he had serologic evidence of recent EBV infection. AIN has been associated with multi ple viral etiologies. The multi-system nature of his presentation is worrisome, but based on the negative w/u to date for other causes, likely consistent with the dx of AIN. Also worrisome is the progressive nature of his renal dysfxn. Today's Scr is lower than mayur t obtained last month, so there is some hope that his acute injury has plateaued and that he is in the early phase of renal recovery. He is on an ARB. It is not possible to exclude a r ole for RAAS blockade in the progressive rise of his Scr, although it would be unusual at hi s age and w/o other evidence of vascular disease. Most all of his current sxs are consistent with high dose corticosteroids. It is hard to ignore the coincidental issues of appendicitis, cholecystitis and colitis. Re nal involvement with inflammatory bowel disease does occur, but most commonly takes the form of a glomerulopathy. As noted before, there is currently no evidence of significant glomeru lar involvement. There is also no histologic evidence in the path specimens obtained of a ok sculitis Recommendation/Plan: 1. Given his current sxs, I think it would be reasonable to reduce his steroid dose to 40mg daily, with plans to go to 30mg daily in 1-2 weeks. Further modification would be dependent on his sx status and renal fxn changes. 2. I would discontinue the ARB and assess its potential impact on his GFR. 3. A dermatologic evaluation and bx would be reasonable. Although there has been no evidenc e of vasculitis to date, the lesions look a bit unusual for steroid induced. 4. If his renal fxn continues to deteriorate, I would consider a repeat renal bx for diagno stic confirmation as well as to obtain data that would support the addition of further immun -modulating therapy (possibly mycophenolate). I have made none of these changes. He is not scheduled to return to see me, but I would be happy to do so in the future if rosa ired or indicated. documented in this encounter Plan of Treatment Not on filedocumented as of this encounter Procedures + +--------+ + + + | Procedure Name | Priori | Date/Time | Associated Diagnosis | Comments | | | ty | | | | + +--------+ + + + | UA, DIPSTICK ONLY | Routin | 03/12/2009 | Other Nonspecific | Results for this | | | e | 9:30 AM | Finding on | procedure are in the | | | | PDT | Examination of Urine | results section. | + +--------+ + + + | BASIC METABOLIC SET | Routin | 01/26/2009 | | Results for this | | (NA, K, CL, TCO2, | e | | | procedure are in the | | BUN, CR, GLU, CA) | | | | results section. | + +--------+ + + + documented in this encounter Results SEDIMENTATION RATE (03/12/2009 11:04 AM PDT) + +-------+ + + + | Component | Value | Ref Range | Performed | Pathologist | | | | | At | Signature | + +-------+ + + + | SEDIMENTATI | 8 | <16 mm/hr | [facility] | | | ON RATE | | [...] | + + + + + | [facility] | [address] | [place] [address] | | | PATHOLOGY | [address] | | | + + + + + | [facility] | [address] | [place] [address] | | | PATHOLOGY | [address] [...] Performed At | + + + | [id number] Estimated GFR = 37 mL/min/1.73 sq m if non- | [facility] | | [place] [id number] Estimated GFR = 45 mL/min/1.73 sq m if | DEPARTMENT OF | | [place] GFR is estimated using the MDRD equation [...] | + + + + + | [facility] | [address] | [place] [address] | | | PATHOLOGY | [address] | | | + + + + + | [facility] | [address] | [place] [address] | | | PATHOLOGY | [address] [...] | + + + + + | [facility] | [address] | [place] [address] | | | PATHOLOGY | [address] | | | + + + + + | [facility] | [address] | [place] [address] | | | PATHOLOGY | [address] | | | + + + + + TALI MORSE ONLY (03/12/2009 9:30 AM PDT) + + + + + + | Component | Value | Ref Range | Performed | Pathologist | | | | | At | Signature | + + + + + + | COLOR(UR) | colorless | | [facility] | | | | | | OF CARE | | | | | | TESTS | | + + + + + + | APPEARANCE | clear | | [facility] | | | | | | OF CARE | | | | | | TESTS | | + + + + + + | LEUKOCYTE | neg | Negative | [facility] | | | ESTERASE | | | OF CARE | | | | | | TESTS | | + + + + + + | NITRITES | neg | Negative | [facility] | | | | | | OF CARE | | | | | | TESTS | | + + + + + + | UROBILINOGE | 0.2 | 0.2 MEE | [facility] | | | N | | UNITS | OF CARE | | | | | | TESTS | | + + + + + + | PROTEIN(LAB | neg | Negative to | [facility] | | | ) | | Trace mg/dL | OF CARE | | | | | | TESTS | | + + + + + + | PH(UR) | 5.0 | 5 - 8 | [facility] | | | | | | OF CARE | | | | | | TESTS | | + + + + + + | BLOOD | trace | Negative | [facility] | | | | | | OF CARE | | | | | | TESTS | | + + + + + + | SPECIFIC | 1.020 | 1.005 - 1.03 | [facility] | | | GRAVITY | | | OF CARE | | | | | | TESTS | | + + + + + + | KETONES | neg | Negative mg/dL | [facility] | | | | | | OF CARE | | | | | | TESTS | | + + + + + + | BILIRUBIN | neg | Negative | [facility] | | | | | | OF CARE | | | | | | TESTS | | + + + + + + | GLUCOSE(UR) | neg | Negative to | [facility] | | | | | Trace mg/dL | OF CARE | | | | | | TESTS | | + + + + + + + + | Specimen | + + | Urine - Urine | + + + + + + + | Performing | Address | City/State/Zipcode | Phone Number | | Organization | | | | + + + + + | [facility] | [address] | [place], [place] | | | [facility] | [address] | [address] | | | TESTS | | | | + + + + + | [facility] | [address] | [place], [place] | | | TESTS | [address] | [address] | | + + + + + BASIC METABOLIC SET (NA, K, CL, TCO2, BUN, CR, GLU, CA) (01/26/2009) + +---------+ + + + | Component | Value | Ref Range | Performed | Pathologist | | | | | At | Signature | + +---------+ + + + | GLUCOSE, | 137 (A) | 65 - 110 mg/dL | [facility] | | | PLASMA | | | LAB - | | | (LAB) | | | [place] | | + +---------+ + + + | BUN, PLASMA | 28 | mg/dL | [facility] | | | (LAB) | | | LAB - | | | | | | [place] | | + +---------+ + + + | CREATININE | 2.22 | mg/dL | [facility] | | | PLASMA | | | LAB - | | | (LAB) | | | [place] | | + +---------+ + + + | SODIUM, | 137 | mmol/L | [facility] | | | PLASMA | | | LAB - | | | (LAB) | | | [place] | | + +---------+ + + + | POTASSIUM, | 4.5 | mmol/L | [facility] | | | PLASMA | | | LAB - | | | (LAB) | | | [place] | | + +---------+ + + + | CHLORIDE, | 103 | mmol/L | [facility] | | | PLASMA | | | LAB - | | | (LAB) | | | [place] | | + +---------+ + + + | TOTAL CO2, | 24.7 | mmol/L | [facility] | | | PLASMA | | | LAB - | | | (LAB) | | | [place] | | + +---------+ + + + | CALCIUM, | 8.9 | mg/dL | [facility] | | | PLASMA | | | LAB - | | | (LAB) | | | [place] | | + +---------+ + + + | PROTEIN/CRE | 230.8 | mg/mg | [facility] | | | ATININE | | | LAB - | | | RATIO | | | [place] | | + +---------+ + + + | IRON BIND | 339 | ug/dL | [facility] | | | CAP SERUM | | | LAB - | | | | | | [place] | | + +---------+ + + + | % | 11.8 | % | [facility] | | | SATURATION | | | LAB - | | | TRANSFERRIN | | | [place] | | | , SERUM | | | | | + +---------+ + + + | FERRITIN | 184 | ng/mL | [facility] | | | | | | LAB - | | | | | | [place] | | + +---------+ + + + | HEMOGLOBIN | 11.7 | g/dL | [facility] | | | | | | LAB - | | | | | | [place] | | + +---------+ + + + | HEMATOCRIT | 35.8 | % | [facility] | | | | | | LAB - | | | | | | [place] | | + +---------+ + + + | PLATELET | 274 | K/cu mm | [facility] | | | COUNT | | | LAB - | | | | | | [place] | | + +---------+ + + + | WHITE CELL | 8.0 | K/cu mm | [facility] | | | COUNT | | | LAB - | | | | | | [place] | | + +---------+ + + + | IRON SERUM | 40 | ug/dL | [facility] | | | | | | LAB - | | | | | | [place] | | + +---------+ + + + | ALBUMIN, | 3.9 | g/dL | [facility] | | | PLASMA | | | LAB - | | | (LAB) | | | [place] | | + +---------+ + + + | PHOSPHORUS, | 3.9 | mg/dL | [facility] | | | PLASMA | | | LAB - | | | (LAB) | | | [place] | | + +---------+ + + + + + | Specimen | + + | Blood - Blood | + + + + + + + | Performing | Address | City/State/Zipcode | Phone Number | | Organization | | | | + + + + + | [facility] - | [address] | [place] | [phone] | | [place] | | | | + + + + + | [facility] - | | [place], [place] | | | [place] | | | | + + + + + documented in this encounter Visit Diagnoses + + | Diagnosis | + + | Acute interstitial nephritis - Primary Other acute glomerulonephritis with other | | specified pathological lesion in kidney | + + | Other nonspecific finding on examination of urine | + + documented in this encounter
--- OUTSIDE RECORDS SUMMARY | ~2019-12-22 | XMS | Encounter Summary ---
Demographics + + + | Address | [address] [address] | | | [place] [address] | + + + | Home Phone [...] [place], [place] | | | | | [address] | | + + + + + | Misty Boateng | ECON | [address] | | | | | [place], [place] | | | | | [address] | | + + + + + Care Team Providers + +------+ + | Care Lead Portfolio Manager Name | Role | Phone | [...] | NEPHROLOGY [address] | disease) stage 4, | | | | [address] | [address] [place] | GFR 15-29 ml/min | | | | [place], [place] | [place] [address] | ([facility]) (Primary Dx) | | | | [address] | [phone] | | | | | [phone] | | | +--------+ + + + [...] | | | | | [place] [address] | | | | | | [phone] | | | | | | | | +--------+---------+ + + + documented as of this encounter Visit Diagnoses + + | Diagnosis | + + | CKD (chronic kidney disease) stage 4, GFR 15-29 ml/min ([facility]) - Primary Chronic kidney | | disease, Stage IV (severe) | + + documented in this encounter"
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
--- OUTSIDE RECORDS SUMMARY | ~2019-12-22 | XMS | Encounter Summary ---
Demographics + + + | Address | [address] [place] [address] | | | [place] [address] | + + + | Home Phone [...] Providers + +------+ + | Care Senior Internal Auditor Name | Role | Phone | + +------+ + | Jt Perkins MD | PCP | | + +------+ + Reason for Referral PROC - Outpatient Surgery (Urgent) + +---------+ + + + + | Status | Reason | Specialty | Diagnoses / | Referred By | Referred To | | | | | Procedures | Contact | Contact | + +---------+ + + + + | Authorized | Coded | Otolaryngolog | Diagnoses | Tim Skinner | Tim Skinner, | | | | y | Acute | MD [address] | [address] | | | | | recurrent | [address] | [address] | | | | | sialoadeniti | Davion Carballo | Kait Brarios | | | | | s Other | Rd | [place], [place] | | | | | diseases of | [place], [place] | [address] | | | | | salivary | [address] | Phone: | | | | | glands | Phone: | [phone] | | | | | Procedures | [phone] | Fax: | | | | | REQUEST TO | Fax: | [phone] | | | | | SURGERY | [phone] | | | | | | DOOR FRAMER | | | | | | | [facility] | | | | | | | PAROTD | | | | | | | RAJIV,LATER | | | | | | | LOBE [facility] | | | | | | | PAROTD,LAT | | | | | | | LOBE,DISSECT | | | | | | | 5TH NERV | | | | | | | [facility] [facility] | | | | | | | PAROTD,TOTAL | | | | | | | ,DISSECT 5TH | | | | | | | NERV 90 G | | | + +---------+ + + + + Encounter Details +--------+ + + + + | Date | Type | Department | Care Team | Description | +--------+ + + + + | 11/27/ | Cotton Classer Aide | Otolaryngology | Tim Skinner MD | Left Parotid mass | | 2019 | | Head and Neck | [address] | (Primary Dx) | | | | Surgery Services at | [address] [place], | | | | | [facility] [address] | [place] [address] | | | | | [address] Mailcode: | [phone] | | | | | [facility] | | | | | | and Healing, | | | | | | [address] | | | | | | [place], [place] | | | | | | [address] | | | | | | [phone] | | | +--------+ + + + [...]
--- OUTSIDE RECORDS SUMMARY | ~2019-12-22 | XMS | Encounter Summary ---
Demographics + + + | Address | [address] | | | [place] [address] | + + + | Home Phone [...] [place], [place] | | | | | [address] | | + + + + + | Misty Boateng | ECON | [address] | | | | | [place], [place] | | | | | [address] | | + + + + + Care Team Providers + +------+ + | Care Route Service Representative Name | Role | Phone | + +------+ + PCP | Unavailable | + +------+ + Encounter Details +--------+ + + + + | Date | Type | Department | Care Team | Description | +--------+ + + + + | 12/28/ | Orders Only | [facility] [place] | Christine Martinez W, | Chronic kidney | | 2018 | | NEPHROLOGY [address] | [address] | disease, stage IV | | | | [address] | [address] [place] | (severe) (HCC) | | | | [place], [place] | [place] [address] | (Primary Dx) | | | | [address] | [phone] | | | | | [phone] | | | +--------+ + + + [...] encounter Progress Notes Jonathan Campuzano RN - 12/28/2017 4:44 PM PDTLab orders for nephrology appointment on faxed to Jose Eduardo Christian.Electronically signed by Jonathan Campuzano RN at 2017 4:46 PM PDTdocumented in this encounter Plan of Treatment +--------+---------+ + + + | Date | Type | Specialty | Care Team | Description | +--------+---------+ + + + | 03/20/ | Office | Nephrology | Christine Martinez, | | | 2019 | Visit | | [address] | | | | | | [address] [place] | | | | | | [place] [address] | | | | | | [phone] | | | | | | | | +--------+---------+ + + + documented as of this encounter Visit Diagnoses + + | Diagnosis | + + | Chronic kidney disease, stage IV (severe) (HCC) - Primary Chronic kidney disease, | | Stage IV (severe) | + + documented in this encounter"
--- OUTSIDE RECORDS SUMMARY | ~2019-12-22 | XMS | Encounter Summary ---
Demographics + + + | Address | [address] | | | [place] [address] | + + + | Home Phone | | + + + | Preferred Language | Unknown | + + + | Marital Status | | + + + | Nondenominational Affiliation | 1041 | + + + | Race | Unknown | + + + | Ethnic Group | Unknown | + + + Author + + + | Author | [facility] | | | and [place] | + + + | Organization | [facility] | | | and [place] | + + + | Address | Unknown | + + + | Phone | Unavailable | + + + Support + + + + + | Name | Relationship | Address | Phone | + + + + + | Ryan Oneill | ECON | [place], [place] | | | | | [address] | | + + + + + | Misty Boateng | ECON | [address] | | | | | [place], [place] | | | | | [address] | | + + + + + Care Team Providers + +------+ + | Care Computer Forensic Examiner Name | Role | Phone | + +------+ + PCP | Unavailable | + +------+ + Encounter Details +--------+ + + + + | Date | Type | Department | Care Team | Description | +--------+ + + + + | 08/21/ | Abstract | [facility] [place] | Christine Martinez W, | | | 2017 | | NEPHROLOGY [address] | | | | | [address] | [address] [place] | | | | | [place], [place] | [place] [address] | | | | | [address] | [phone] | | | | | [phone] | | | +--------+ + + + [...] | | | | | [place] [address] | | | | | | [phone] | | | | | | | | +--------+---------+ + + + documented as of this encounter Procedures + +--------+ + + + | Procedure Name | Priori | Date/Time | Associated Diagnosis | Comments | | | ty | | | | + +--------+ + + + | EXTERNAL LAB: BUN | Routin | 08/20/2017 | | Results for this | | | e | | | procedure are in the | | | | | | results section. | + +--------+ + + + | EXTERNAL LAB: | Routin | 08/20/2017 | | Results for this | | GLUCOSE | e | | | procedure are in the | | | | | | results section. | + +--------+ + + + | EXTERNAL LAB: ALT | Routin | 08/20/2017 | | Results for this | | | e | | | procedure are in the | | | | | | results section. | + +--------+ + + + | EXTERNAL LAB: AST | Routin | 08/20/2017 | | Results for this | | | e | | | procedure are in the | | | | | | results section. | + +--------+ + + + | EXTERNAL LAB: | Routin | 08/20/2017 | | Results for this | | ALKALINE PHOSPHATASE | e | | | procedure are in the | | | | | | results section. | + +--------+ + + + | EXTERNAL LAB: | Routin | 08/20/2017 | | Results for this | | BILIRUBIN, TOTAL | e | | | procedure are in the | | | | | | results section. | + +--------+ + + + | EXTERNAL LAB: | Routin | 08/20/2017 | | Results for this | | ALBUMIN | e | | | procedure are in the | | | | | | results section. | + +--------+ + + + | EXTERNAL LAB: | Routin | 08/20/2017 | | Results for this | | PROTEIN, TOTAL | e | | | procedure are in the | | | | | | results section. | + +--------+ + + + | EXTERNAL LAB: | Routin | 08/20/2017 | | Results for this | | CALCIUM | e | | | procedure are in the | | | | | | results section. | + +--------+ + + + | EXTERNAL LAB: CARBON | Routin | 08/20/2017 | | Results for this | | DIOXIDE | e | | | procedure are in the | | | | | | results section. | + +--------+ + + + | EXTERNAL LAB: | Routin | 08/20/2017 | | Results for this | | CHLORIDE | e | | | procedure are in the | | | | | | results section. | + +--------+ + + + | EXTERNAL LAB: | Routin | 08/20/2017 | | Results for this | | POTASSIUM | e | | | procedure are in the | | | | | | results section. | + +--------+ + + + | EXTERNAL LAB: SODIUM | Routin | 08/20/2017 | | Results for this | | | e | | | procedure are in the | | | | | | results section. | + +--------+ + + + | EXTERNAL LAB: | Routin | 08/20/2017 | | Results for this | | URINALYSIS | e | | | procedure are in the | | | | | | results section. | + +--------+ + + + | EXTERNAL LAB: CBC | Routin | 08/20/2017 | | Results for this | | | e | | | procedure are in the | | | | | | results section. | + +--------+ + + + | EXTERNAL LAB: EGFR | Routin | 08/20/2017 | | Results for this | | | e | | | procedure are in the | | | | | | results section. | + +--------+ + + + | EXTERNAL LAB: | Routin | 08/20/2017 | | Results for this | | CREATININE | e | | | procedure are in the | | | | | | results section. | + +--------+ + + + documented in this encounter Results External Lab: ANIVAL (08/20/2017) + +-------+ + + + | Component | Value | Ref Range | Performed | Pathologist | | | | | At | Signature | + +-------+ + + + | ANIVAL, | 25 | | EXTERNAL | | [...] + +---------+ + + External Lab: Glucose (08/20/2017) + +-------+ + + + | Component | Value | Ref Range | Performed | Pathologist | | | | | At | Signature | + +-------+ + + + | Glucose, | 94 | | EXTERNAL | | | External [...] + +---------+ + + External Lab: ALT (08/20/2017) + +-------+ + + + | Component | Value | Ref Range | Performed | Pathologist | | | | | At | Signature | + +-------+ + + + | ALT, | 7 | | EXTERNAL | | [...] + +---------+ + + External Lab: AST (08/20/2017) + +-------+ + + + | Component | Value | Ref Range | Performed | Pathologist | | | | | At | Signature | + +-------+ + + + | AST, | 9 | | EXTERNAL | | | External [...] +---------+ + + External Lab: Alkaline Phosphatase (08/20/2017) + +-------+ + + + | Component | Value | Ref Range | Performed | Pathologist | | | | | At | Signature | + +-------+ + + + | ALP, | 68 | | EXTERNAL | | | External [...] +---------+ + + External Lab: Bilirubin, Total (08/20/2017) + +-------+ + + + | Component [...] + +---------+ + + External Lab: Albumin (08/20/2017) + +-------+ + + + | Component [...] +---------+ + + External Lab: Protein, Total (08/20/2017) + +-------+ + + + | Component | Value | Ref Range | Performed | Pathologist | | | | | At | Signature | + +-------+ + + + | Protein, | 7.2 | | EXTERNAL | | | Total, [...] + +---------+ + + External Lab: Calcium (08/20/2017) + +-------+ + + + | Component | Value | Ref Range | Performed | Pathologist | | | | | At | Signature | + +-------+ + + + | Calcium, | 9.3 | | EXTERNAL | | | External [...] +---------+ + + External Lab: Carbon Dioxide (08/20/2017) + +-------+ + + + | Component | Value | Ref Range | Performed | Pathologist | | | | | At | Signature | + +-------+ + + + | Carbon | 27 | | EXTERNAL | | | Dioxide, [...] + +---------+ + + External Lab: Chloride (08/20/2017) + +-------+ + + + | Component [...] + +---------+ + + External Lab: Urinalysis (08/20/2017) + + + + + + | Component | Value | Ref Range | Performed | Pathologist | | | | | At | Signature | + + + + + + | UA Blood, | 10 | | EXTERNAL | | [...] 1.013 | | EXTERNAL | | | [place], | | | LAB | | | [...] + +---------+ + + External Lab: CBC (08/20/2017) + +-------+ + + + | Component | Value | Ref Range | Performed | Pathologist | | | | | At | Signature | + +-------+ + + + | WBC, | 5.9 | | EXTERNAL | | | External | | | LAB | | + +-------+ + + + | HGB, | 13.9 | | EXTERNAL | | | External | | | LAB | | + +-------+ + + + | HCT, | 41.4 | | EXTERNAL | | | External | | | LAB | | + +-------+ + + + | PLT, | 215 | | EXTERNAL | | | External | | | LAB | | + +-------+ + + + | RBC, | 4.28 | | EXTERNAL | | | External | | | LAB | | + +-------+ + + + | MCV, | 97 | | EXTERNAL | | | External | | | LAB | | + +-------+ + + + | RDW, | 14.7 | | EXTERNAL | | | External [...] + +---------+ + + External Lab: eGFR (08/20/2017) + +-------+ + + + | Component [...] + +---------+ + + External Lab: Creatinine (08/20/2017) + +-------+ + + + | Component | Value | Ref Range | Performed | Pathologist | | | | | At | Signature | + +-------+ + + + | Creatinine, | 3.01 | | EXTERNAL | | | External [...] + +---------+ + + External Lab: Potassium (08/20/2017) + +-------+ + + + | Component | Value | Ref Range | Performed | Pathologist | | | | | At | Signature | + +-------+ + + + | Potassium, | 4.7 | | EXTERNAL | | [...] + +---------+ + + External Lab: Sodium (08/20/2017) + +-------+ + + + | Component | Value | Ref Range | Performed | Pathologist | | | | | At | Signature | + +-------+ + + + | Sodium, | 140 | | EXTERNAL | | | External [...]
--- OUTSIDE RECORDS SUMMARY | ~2019-12-22 | XMS | Encounter Summary ---
Demographics + + + | Address | [address] | | | [place] [address] | + + + | Home Phone [...] [place], [place] | | | | | [address] | | + + + + + | Misty Boateng | ECON | [address] | | | | | [place] | | | | | [address] | | + + + + + Care Team Providers + +------+ + | Care Disc Jockey Name | Role | Phone | + [...] | | | | | | | AL | | | | | | | COLONOSCOPY | | | | | | | FLX DX | | | | | | | W/COLLJ SPEC | | | | | | | WHEN PFRMD | | | | | | | AL | | | | | | | [...] + + | 11/07/ | Hospital | [facility] | Pan Jhaveri MD | | | 2016 | Encounter | MED CTR [facility] OP | [address] | | | | | [address] | [place], [place] | | | | | [place], [place] | [address] | | | | | [address] | [phone] | | | | | [phone] | | | +--------+ + + + [...] the test. This includes: All prescription medicines Vsse-dvv-aovrjdq medicines such as aspirin or ibuprofen Street [...] in someone with heart or lung disease 4012-1999 [employer] [address] [place] [address]. All righ ts reserved. This information is [...] tear in the colon Risks of anesthesia [phone] [employer] [address] [place] [address]. All righ ts reserved. This information is [...] 2019 | Visit | | [address] | | | | | | [address] [place] | | | | | | [place] [address] | | | | | | [phone] | | | | | | | [...] | | insensitive. Clinical correlation is necessary. [facility]:[id number] | | | GROSS DESCRIPTION: A. [...] processing and slide preparation were performed by [employer] | | | [place], [address] [place] [address] | | | (Dishwashing Machine Operator: Stacie LinOLos.; CLIA#: [id number]). | | | Professional interpretation was performed by [employer], [id number] | | | [place] [address] (Dishwashing Machine Operator: | | | Paulie Krishnamurthy D.O.; CLIA#: [id number]). Diagnostician: | | | Enzo Kerr MD [...]
--- OUTSIDE RECORDS SUMMARY | ~2019-12-22 | XMS | Encounter Summary ---
Demographics + + + | Address | [address] | | | [place] [address] | + + + | Home Phone [...] [place], [place] | | | | | [address] | | + + + + + | Misty Boateng | ECON | [address] | | | | | [place] | | | | | [address] | | + + + + + Care Team Providers + +------+ + | Care Risk Prevention Engineer Name | Role | Phone | [...] + + | 06/04/ | Telephone | [facility] | Christine Martinez, | Appointment (Renal | | 2015 | | NEPHROLOGY [address] | MD [address] | biopsy) | | | | [address] | [address] [facility] | | | | | [place] | [place] [address] | | | | | [address] | [phone] | | | | | [phone] | | | +--------+ + + + [...] | | | | | [place] [address] | | | | | | [phone] | | | | | | | | +--------+---------+ + + + documented as of this encounter Visit Diagnoses + + | Diagnosis | + + | Chronic kidney disease, stage IV (severe) (HCC) - Primary Chronic kidney disease, | | Stage IV (severe) | + + documented in this encounter"
--- OUTSIDE RECORDS SUMMARY | ~2019-12-22 | XMS | Encounter Summary ---
Demographics + + + | Address | [address] | | | [place] [address] | + + + | Home Phone [...] [place], [place] | | | | | [address] | | + + + + + | Misty Boateng | ECON | [address] | | | | | [place] | | | | | [address] | | + + + + + Care Team Providers + +------+ + | Care Retail Stock Clerk Name | Role | Phone [...] | NEPHROLOGY [address] | | | | | [address] | [address] [place] | | | | | [place], [place] | [place] [address] | | | | | [address] | [phone] | | | | | [phone] | | | +--------+ + + + [...] 03/20/ | Office | Nephrology | Christine aMrtinez, | | | 2019 | Visit | | [address] | | | | | | [address] [place] | | | | | | [place] [address] | | | | | | [phone] | | | | | | | [...]
--- OUTSIDE RECORDS SUMMARY | ~2019-12-22 | XMS | Encounter Summary ---
Demographics + + + | Address | [address] | | | [place] [address] | + + + | Home Phone [...] [place], [place] | | | | | [address] | | + + + + + | Misty Boateng | ECON | [address] | | | | | [place] | | | | | [address] | | + + + + + Care Team Providers + +------+ + | Care Dna Analyst Name | Role | Phone | [...] RAEGAN (acute | Christine W, | [address] | | | | | kidney | MD [address] | [place], | | | | | injury) | [place] [address] | [place] [address] | | | | | (HCC) | [address] [place] | Phone: | | | | | Procedures | [place] | [phone] | | | | | CT Guided | [address] | Fax: | | | | | Biopsy Renal | Phone: | [phone] | | | | | AR BIOPSY | [phone] | | | | | | OF | Fax: | | | | | | KIDNEY,PERCU | [phone] | | | | | | TANEOUS AR | | | | | | [...] | 06/04/ | Orders Only | [facility] | Christine Martinez W, | RAEGAN (acute kidney | | 2015 | | NEPHROLOGY [address] | [address] | injury) ([facility]) | | | | [address] | [address] [place] | (Primary Dx) | | | | [place] | [place] [address] | | | | | [address] | [phone] | | | | | [phone] | | | +--------+ + + + [...] | | | | | [place] [address] | | | | | | [phone] | | | | | | | [...] COMPARISON: None. PROTOCOL: After explaining the | [facility] | | risks and benefits [...] + + + + | [facility] | [address] | [place], [place] | [phone] | | [facility] | | [address] | | | - IMAGING | | | | + + + + + documented in this encounter Visit Diagnoses + + | Diagnosis | + + | RAEGAN (acute kidney injury) (HCC) - Primary Acute kidney failure, unspecified | + + documented in this encounter"
--- OUTSIDE RECORDS SUMMARY | ~2019-12-22 | XMS | Encounter Summary ---
Demographics + + + | Address | [address] | | | [place] [address] | + + + | Home Phone | | + + + | Preferred Language | Unknown | + + + | Marital Status | | + + + | Moravian Affiliation | 1041 | + + + | Race | Unknown | + + + | Ethnic Group | Unknown | + + + Author + + + | Author | [facility] | | | and [place] | + + + | Organization | [facility] | | | and [place] | + + + | Address | Unknown | + + + | Phone | Unavailable | + + + Support + + + + + | Name | Relationship | Address | Phone | + + + + + | Ryan Oneill | ECON | [place], [place] | | | | | [address] | | + + + + + | Misty Boateng | ECON | [address] | | | | | [place] | | | | | [address] | | + + + + + Care Team Providers + +------+ + | Care Dairy And Food Laboratory Assistant Name | Role | Phone | [...] | | | | | [address] | [place], [place] | | | | | [place], [place] | [address] | | | | | [address] | [phone] | | | | | [phone] | | | +--------+---------+ + + + [...] the test. This includes: All prescription medicines Vcph-qij-ubngsbe medicines such as aspirin or ibuprofen Street [...] in someone with heart or lung disease 6275-3226 [employer]. [address] [place] [address], [place] [address]. All righ ts reserved. This information is [...] tear in the colon Risks of anesthesia 5247-0919 [employer]. [address] [place] [address], [place] [address]. All righ ts reserved. This information is [...] [place] | | | | | | [place] [address] | | | | | | [phone] | | | | | | | [...] | | insensitive. Clinical correlation is necessary. [facility] | | | GROSS DESCRIPTION: A. The [...] processing and slide preparation were performed by [employer] | | | [employer], [address] [place] [address] | | | (Warranty Clerk: Paulie Krishnamurthy D.O..; CLIA#: [id number]). | | | Professional interpretation was performed by [employer], [id number] | | | [place] [address] (Warranty Clerk: | | | Paulie Krishnamurthy D.O.; CLIA#: [id number]). Diagnostician: | | | Enzo Kerr MD [...]
--- OUTSIDE RECORDS SUMMARY | ~2019-12-22 | XMS | Encounter Summary ---
Demographics + + + | Address | [address] [place] [address] | | | [place] [address] | + + + | Home Phone [...] Team Providers + +------+ + | Care Chicken Raiser Name | Role | Phone | [...] | | | | | Kait Barrios [place], | [place], [place] | | | | | [place] [address] | [address] | | | | | [phone] | [phone] | | | | | | | [...] Performed At | + + + | [facility] | NON [facility] | | [address] [address] | | |[place] [address] | | + + + + +---------+ + + | Performing | Address | City/State/Zipcode | Phone Number | | Organization | | | | + +---------+ + + | NON [facility] | | | | + +---------+ + + documented in this encounter Visit Diagnoses Not on filedocumented in this encounter"
--- OUTSIDE RECORDS SUMMARY | ~2019-12-22 | XMS | Encounter Summary ---
Demographics + + + | Address | [address] [place] [address] | | | [place] [address] | + + + | Home Phone [...] Team Providers + +------+ + | Care Frozen Food Department Manager Name | Role | Phone | + +------+ + | Jt Perkins MD | PCP | | + +------+ + Encounter Details +--------+ + + + + | Date | Type | Department | Care Team | Description | +--------+ + + + + | 08/05/ | Lab | LAB IMMUNOGENETIC | | | | 2016 | Requisition | [facility] | | | | | | [address] | | | | | | Kait [place], | | | | | | [place] [address] | | | +--------+ + + + [...] FLOW HLA AB PRA | Routin | 08/05/2016 | End stage renal | | | SCREEN I/II KE | e | 3:29 PM | disease (HCC) | | | | | PST | | | + +--------+ + + + documented in this encounter Results LIT FLOW HLA AB PRA SCREEN I/II KE (08/05/2016 3:29 PM PST) + + | Specimen | + + | Blood - Blood | | (substance) | + + + + + + + | Performing | Address | City/State/Zipcode | Phone Number | | Organization | | | | + + + + + | [facility] | [address] [facility] | [place] [address] | | | IMMUNOGENETICS/TRANS | [address] | | | | [facility] | | | | + + + + + documented in this encounter Visit Diagnoses + + | Diagnosis | + + | End stage renal disease (HCC) End stage renal disease | + + documented in this encounter"
--- OUTSIDE RECORDS SUMMARY | ~2019-12-22 | XMS | Encounter Summary ---
Demographics + + + | Address | [address] | | | [place] [address] | + + + | Home Phone [...] [place], [place] | | | | | [address] | | + + + + + | Misty Boateng | ECON | [address] | | | | | [place] | | | | | [address] | | + + + + + Care Team Providers + +------+ + | Care Obstetrics Scrub Nurse Name | Role | Phone | [...] + + | 08/27/ | Telephone | [facility] | Christine Martinez W, | Blood Pressure Check | | 2016 | | NEPHROLOGY [address] | [address] | (Screening) | | | | [address] | [address] [facility] | | | | | [place] | [place] [address] | | | | | [address] | [phone] | | | | | [phone] | | | +--------+ + + + [...] | | | | | [place] [address] | | | | | | [phone] | | | | | | | | +--------+---------+ + + + documented as of this encounter Visit Diagnoses Not on filedocumented in this encounter"
--- OUTSIDE RECORDS SUMMARY | ~2019-12-22 | XMS | Encounter Summary ---
Demographics + + + | Address | [address] [place] [address] | | | [place] [address] | + + + | Home Phone [...] Team Providers + +------+ + | Care Equipment Man Name | Role | Phone | + +------+ + | Jt Perkins MD | PCP | | + +------+ + Encounter Details +--------+ + + + + | Date | Type | Department | Care Team | Description | +--------+ + + + + | 12/03/ | MyChart | Otolaryngology | Tim Skinner MD | test results | | 2020 | Encounter | Head and Neck | [address] | | | | | Surgery Services at | [address] [place], | | | | | [address] | [place] [address] | | | | | [address] | [phone] | | | | | Physician's | | | | | | Pavilion, 2nd floor | | | | | | [place], [place] | | | | | | [address] | | | | | | [phone] | | | +--------+ + + + [...]
--- OUTSIDE RECORDS SUMMARY | ~2019-12-22 | XMS | Encounter Summary ---
Demographics + + + | Address | [address] [place] [address] | | | [place] [address] | + + + | Home Phone [...] Team Providers + +------+ + | Care Public Address System Installer Name | Role | Phone | [...] evaluation (living | | | | [address] [facility] | [address] | donor coord contact) | | | | Kait Barrios [place], | [place], [place] | | | | | [place] [address] | [address] | | | | | [phone] | | | +--------+ + + + [...]
--- OUTSIDE RECORDS SUMMARY | ~2019-12-22 | XMS | Encounter Summary ---
Demographics + + + | Address | [address] [place] [address] | | | [place] [address] | + + + | Home Phone [...] Team Providers + +------+ + | Care Can Conveyor Feeder Name | Role | Phone | [...] | [address] | Kait [place], | | | | | [place], | [place] [address] | | | | | [place] [address] | | | | | | [phone] | | | +--------+ + + + [...]
--- OUTSIDE RECORDS SUMMARY | ~2019-12-22 | XMS | Encounter Summary ---
Demographics + + + | Address | [address] | | | [place] [address] | + + + | Home Phone | | + + + | Preferred Language | Unknown | + + + | Marital Status | | + + + | Sabianism Affiliation | 1041 | + + + | Race | Unknown | + + + | Ethnic Group | Unknown | + + + Author + + + | Author | [facility] | | | and [place] | + + + | Organization | [facility] | | | and [place] | + + + | Address | Unknown | + + + | Phone | Unavailable | + + + Support + + + + + | Name | Relationship | Address | Phone | + + + + + | Ryan Oneill | ECON | [place], [place] | | | | | [address] | | + + + + + | Misty Boateng | ECON | [address] | | | | | [place], [place] | | | | | [address] | | + + + + + Care Team Providers + +------+ + | Care Criminal Attorney Name | Role | Phone | + [...] NEPHROLOGY [address] | MD [address] | | | | | [address] | [address] [place] | | | | | [place], [place] | [place] [address] | | | | | [address] | [phone] | | | | | [phone] | | | +--------+--------+ + + + [...] | | | | | | [place] [address] | | | | | | [phone] | | | | | | | | +--------+---------+ + + + documented as of this encounter Visit Diagnoses Not on filedocumented in this encounter"
--- OUTSIDE RECORDS SUMMARY | ~2019-12-22 | XMS | Encounter Summary ---
Demographics + + + | Address | [address] [place] [address] | | | [place] [address] | + + + | Home Phone [...] Team Providers + +------+ + | Care Magneto Electrician Name | Role | Phone | + +------+ + | Hai Holman MD | PCP | | + +------+ + Reason for Visit + + + | Reason | Comments | + + + | Committee Review | | | Recommendations | | + + + Encounter Details +--------+ + + + + | Date | Type | Department | Care Team | Description | +--------+ + + + + | 04/23/ | Committee | Clinical | Thi Aden, | Committee Review | | 2016 | Review | Transplant Services | RN [address] | Recommendations | | | | [address] | [address] | | | | | [place], | [place], [place] | | | | | [place] [address] | [address] | | | | | [phone] | | | +--------+ + + + [...]
--- OUTSIDE RECORDS SUMMARY | ~2019-12-22 | XMS | Encounter Summary ---
Demographics + + + | Address | [address] [place] [address] | | | [place] [address] | + + + | Home Phone [...] Team Providers + +------+ + | Care Training Engineer Name | Role | Phone | [...] | | | | | Kait Barrios [place], | [place], [place] | | | | | [place] [address] | [address] | | | | | [phone] | | | +--------+ + + + [...]
--- OUTSIDE RECORDS SUMMARY | ~2019-12-22 | XMS | Encounter Summary ---
Demographics + + + | Address | [address] [place] [address] | | | [place] [address] | + + + | Home Phone | | + + + | Preferred Language | Unknown | + + + | Marital Status | | + + + | Confucianist Affiliation | CHR | + + + [...] Team Providers + +------+ + | Care Jute Bag Cutting Machine Operator Name | Role | Phone [...] | | Loop Physician's | | (moderate) ([facility]); | | | | Michelle, 3rd floor | | Acute interstitial | | | | [place], [place] | | nephritis | | | | [address] | | | | | | [phone] | | | +--------+------+ + + + [...] | | | | PST | (moderate) ([facility]) | results section. | | | | | Acute interstitial | | | | | | nephritis | | + +--------+ + + + | CBC AND AUTO DIFF | Routin | 09/05/2015 | Chronic kidney | Results for this | | | e | 7:58 AM | disease, stage III | procedure are in the | | | | PST | (moderate) ([facility]) | results section. | | | | | Acute interstitial | | | | | | nephritis | | + +--------+ + + + | CONFIRMATORY ABO/RH | Routin | 09/05/2015 | Chronic kidney | Results for this | | | e | 7:58 AM | disease, stage III | procedure are in the | | | | PST | (moderate) ([facility]) | results section. | | | | | Acute interstitial | | | | | | nephritis | | + +--------+ + + + | LIT FLOW HLA AB PRA | Routin | 09/05/2015 | Chronic kidney | | | SCREEN I/II KE | e | 7:58 AM | disease, stage III | | | | | PST | (moderate) ([facility]) | | | | | | Acute [...] | | | | PST | (moderate) ([facility]) | results section. | | | | | Acute interstitial | | | | | | nephritis | | + +--------+ + + + | QUANTIFERON TB GOLD, | Routin | 09/05/2015 | Chronic kidney | Results for this | | BLOOD | e | 7:58 AM | disease, stage III | procedure are in the | | | | PST | (moderate) ([facility]) | results section. | | | | [...] | URINE | | PST | (moderate) ([facility]) | results section. | | | | | Acute interstitial | | | | | | nephritis | | + +--------+ + + + | LIT HLA-B LOW RES-KE | Routin | 09/05/2015 | Chronic kidney | | | | e | 7:58 AM | disease, stage III | | | | | PST | (moderate) ([facility]) | | | | | | Acute interstitial | | | | | | nephritis | | + +--------+ + + + | LIT HLA-A LOW RES-KE | Routin | 09/05/2015 | Chronic kidney | | | | e | 7:58 AM | disease, stage III | | | | | PST | (moderate) ([facility]) | | | | | | Acute interstitial | | | | | | nephritis | | + +--------+ + + + | LIT HLA-DQ LOW | Routin | 09/05/2015 | Chronic kidney | | | RES-KE | e | 7:58 AM | disease, stage III | | | | | PST | (moderate) ([facility]) | | | | | | Acute interstitial | | | | | | nephritis | | + +--------+ + + + | LIT RBC GROUP TX KE, | Routin | 09/05/2015 | Chronic kidney | | | BLOOD | e | 7:58 AM | disease, stage III | | | | | PST | (moderate) ([facility]) | | | | | | Acute interstitial | | | | | | nephritis | | + +--------+ + + + | LIT HLA-DR LOW | Routin | 09/05/2015 | Chronic kidney | | | RES-KE | e | 7:58 AM | disease, stage III | | | | | PST | (moderate) ([facility]) | | | | | | Acute interstitial | | | | | | nephritis | | + +--------+ + + + | PROTHROMBIN GENE | Routin | 09/05/2015 | Chronic kidney | Results for this | | MUTATION, BLOOD | e | 7:58 AM | disease, stage III | procedure are in the | | | | PST | (moderate) ([facility]) | results section. | | | | | Acute interstitial | | | | | | nephritis | | + +--------+ + + + | HEPATITIS C | Routin | 09/05/2015 | Chronic kidney | Results for this | | QUANTITATIVE, PLASMA | e | 7:58 AM | disease, stage III | procedure are in the | | | | PST | (moderate) ([facility]) | results section. | | | | [...] | | | | PST | (moderate) ([facility]) | results section. | | | | | Acute interstitial | | | | | | nephritis | | + +--------+ + + + | INR | Routin | 09/05/2015 | Chronic kidney | Results for this | | | e | 7:58 AM | disease, stage III | procedure are in the | | | | PST | (moderate) ([facility]) | results section. | | | | | Acute interstitial | | | | | | nephritis | | + +--------+ + + + | CBC, WITH | Routin | 09/05/2015 | Chronic kidney | Results for this | | DIFFERENTIAL | e | 7:58 AM | disease, stage III | procedure are in the | | | | PST | (moderate) ([facility]) | results section. | | | | | Acute interstitial | | | | | | nephritis | | + +--------+ + + + | DRUG | Routin | 09/05/2015 | Chronic kidney | Results for this | | SCREEN,URINE;W/CONFI | e | 7:58 AM | disease, stage III | procedure are in the | | RM | | PST | (moderate) ([facility]) | results section. | | | | | Acute interstitial | | | | | | nephritis | | + +--------+ + + + | VARICELLA ZOSTER | Routin | 09/05/2015 | Chronic kidney | Results for this | | IGG, SERUM | e | 7:58 AM | disease, stage III | procedure are in the | | | | PST | (moderate) ([facility]) | results section. | | | | | Acute interstitial | | | | | | nephritis | | + +--------+ + + + | MUMPS IGG AB, SERUM | Routin | 09/05/2015 | Chronic kidney | Results for this | | | e | 7:58 AM | disease, stage III | procedure are in the | | | | PST | (moderate) ([facility]) | results section. | | | | | Acute interstitial | | | | | | nephritis | | + +--------+ + + + | COMPLETE METABOLIC | Routin | 09/05/2015 | Chronic kidney | Results for this | | SET | e | 7:58 AM | disease, stage III | procedure are in the | | (NA,K,CL,CO2,BUN,CRE | | PST | (moderate) ([facility]) | results section. | | AT,GLUC,CA,AST,ALT,B | [...] | | | | PST | (moderate) ([facility]) | results section. | | | | | Acute interstitial | | | | | | nephritis | | + +--------+ + + + | URINE, MICROSCOPIC | Routin | 09/05/2015 | Chronic kidney | Results for this | | EXAM | e | 7:58 AM | disease, stage III | procedure are in the | | | | PST | (moderate) ([facility]) | results section. | | | | [...] | | | | PST | (moderate) ([facility]) | results section. | | | | | Acute interstitial | | | | | | nephritis | | + +--------+ + + + | RPR SERUM | Routin | 09/05/2015 | Chronic kidney | Results for this | | | e | 7:58 AM | disease, stage III | procedure are in the | | | | PST | (moderate) ([facility]) | results section. | | | | | Acute interstitial | | | | | | nephritis | | + +--------+ + + + | RUBELLA IGG AB, | Routin | 09/05/2015 | Chronic kidney | Results for this | | SERUM | e | 7:58 AM | disease, stage III | procedure are in the | | | | PST | (moderate) ([facility]) | results section. | | | | [...] | | | | PST | (moderate) ([facility]) | results section. | | | | | Acute interstitial | | | | | | nephritis | | + +--------+ + + + | ANTIBODY SCREEN | Routin | 09/05/2015 | Chronic kidney | Results for this | | | e | 7:58 AM | disease, stage III | procedure are in the | | | | PST | (moderate) ([facility]) | results section. | | | | | Acute interstitial | | | | | | nephritis | | + +--------+ + + + | TYPE AND SCREEN | Routin | 09/05/2015 | Chronic kidney | Results for this | | | e | 7:58 AM | disease, stage III | procedure are in the | | | | PST | (moderate) ([facility]) | results section. | | | | | Acute interstitial | | | | | | nephritis | | + +--------+ + + + | ABO & RH TYPE | Routin | 09/05/2015 | Chronic kidney | Results for this | | | e | 7:58 AM | disease, stage III | procedure are in the | | | | PST | (moderate) ([facility]) | results section. | | | | | Acute interstitial | | | | | | nephritis | | + +--------+ + + + | CULTURE, URINE BACTI | Routin | 09/05/2015 | Chronic kidney | Results for this | | | e | 7:58 AM | disease, stage III | procedure are in the | | | | PST | (moderate) ([facility]) | results section. | | | | | Acute interstitial | | | | | | nephritis | | + +--------+ + + + | PHOSPHORUS, PLASMA | Routin | 09/05/2015 | Chronic kidney | Results for this | | | e | 7:58 AM | disease, stage III | procedure are in the | | | | PST | (moderate) ([facility]) | results section. | | | | [...] | | | | PST | (moderate) ([facility]) | results section. | | | | [...] | | | | PST | (moderate) ([facility]) | results section. | | | | [...] | | | | PST | (moderate) ([facility]) | results section. | | | | [...] | | | | PST | (moderate) ([facility]) | results section. | | | | [...] | | | | PST | (moderate) ([facility]) | results section. | | | | | Acute interstitial | | | | | | nephritis | | + +--------+ + + + | BILIRUBIN DIRECT | Routin | 09/05/2015 | Chronic kidney | Results for this | | | e | 7:58 AM | disease, stage III | procedure are in the | | | | PST | (moderate) ([facility]) | results section. | | | | | Acute interstitial | | | | | | nephritis | | + +--------+ + + + | URIC ACID, PLASMA | Routin | 09/05/2015 | Chronic kidney | Results for this | | | e | 7:58 AM | disease, stage III | procedure are in the | | | | PST | (moderate) ([facility]) | results section. | | | | | Acute interstitial | | | | | | nephritis | | + +--------+ + + + | MAGNESIUM, PLASMA | Routin | 09/05/2015 | Chronic kidney | Results for this | | | e | 7:58 AM | disease, stage III | procedure are in the | | | | PST | (moderate) ([facility]) | results section. | | | | | Acute interstitial | | | | | | nephritis | | + +--------+ + + + | LDH TOTAL, PLASMA | Routin | 09/05/2015 | Chronic kidney | Results for this | | | e | 7:58 AM | disease, stage III | procedure are in the | | | | PST | (moderate) ([facility]) | results section. | | | | | Acute interstitial | | | | | | nephritis | | + +--------+ + + + | CHOLESTEROL TOTAL, | Routin | 09/05/2015 | Chronic kidney | Results for this | | PLASMA | e | 7:58 AM | disease, stage III | procedure are in the | | | | PST | (moderate) ([facility]) | results section. | | | | [...] + | [facility] - | [address] | [place] [address] | | | [facility] | | | | + + [...] | + + + + + | [facility] | [address] | [place] [address] | | | SERVICES, | [address] [...] [facility] | [address] | [place] [address] | | | SERVICES, | [address] [...] + + + + + | [facility] | [address] | [place] [address] | | | SERVICES, | [address] [...] + + + + + | [facility] | [address] | [place] [address] | | | SERVICES, CORE | [address] [...] [facility] | [address] | [place] [address] | | | ALIYAH MCKAY | [address] [...] | + + + + + | [facility] | [address] | [place] [address] | | | SERVICES, CORE | [address] [...] 5 | | | | | | ng/rT6-TB-Jiucetcj 50 | | | | | | [...] | | | | | determined by [facility] | | | | | | Laboratories. See | | | | | | Compliance Statement B: | | | | | | [email or web address].com/CSPerformed | | | | | | by Anke,[address] | | | | | | Sherry Pérez, [facility] [place] | | | | | | [address] | | | | | | [phone].Adonit. | | | | | | Calvin [...] REG UNIV | | | | and 9-VS-fpoujeyi is | | PTH - INTFC | | | | ametabolite of cotinine. | | | | | | After cessation from | | | | | | long-term orheavy use of | | | | | | nicotine products, | | | | | | 9-IY-mwjpfilw may | | | | | | [...] [facility] | [address] | [place], [place] | | | UNIV PTH - INTFC | | [address] | | + + + + + [...] + | [facility] - | [address] | [place] [address] | | | [place] | | | [...] + | [facility] - | [address] | [place] [address] | | | CENTER | | | | [...] by | | | | | | An[address] | | | | | | Sherry Pérez, [facility] [place] | | | | | | [address] | | | | | | [phone].[facility]. | | | | | | Calvin [...] [facility] | [address] | [place], [place] | | | UNIV PTH - INTFC | | [address] | | + + + + + [...] at | | | | | | [email or web address].[email or web address]/ebvd | | | | | | x.Performed by [facility] | | | | | | Laboratories,[address] [facility] | | | | | | [facility] [place] [address] | | | | | | [phone].[employer]. | | | | | | Calvin [...] [facility] | [address] | [place], [place] | | | UNIV PTH - INTFC | | [address] | | + + + + + [...] + | [facility] - | [address] | [place] [address] | | | CENTER | | | | [...] by | | | | | | Anke,[address] | | | | | | Sherry Pérez, [facility] [place] | | | | | | [address] | | | | | | [phone].Adonit. | | | | | | Calvin [...] [facility] | [address] | [place], [place] | | | UNIV PTH - INTFC | | [address] | | + + + + + [...] modified from | [facility] | | original plastic molding operator's approved specifications. | LABORATORY | | | SERVICES, | | | SPECIAL IMM + | | | COAG | + + + + + + + + | Performing | Address | City/State/Zipcode | Phone Number | | Organization | | | | + + + + + | [id number] | [address] | [place] [address] | | | SERVICES, SPECIAL | PARK [...] + + + | [facility] | [address] | [place] [address] | | | DIAGNOSTIC | [address] [...] + | [facility] - | [address] | [place] [address] | | | CENTER | | | | [...] + | [facility] - | [address] | [place] [address] | | | [place] | | | [...] + | [facility] - | [address] | [place] [address] | | | [place] | | | [...] | + + + + + | [facility] - | [address] | [place] [address] | | | [place] | | | [...] by | | | | | | Anke,[address] | | | | | | Sherry Pérez, [facility] [place] | | | | | | [address] | | | | | | [phone].[facility]. | | | | | | jose, [...] [facility] | [address] | [place], [place] | | | UNIV PTH - INTFC | | [address] | | + + + + + [...] by | | | | | | Anke,[address] | | | | | | Sherry [facility], [facility] [place] | | | | | | [address] | | | | | | [phone].[facility]. | | | | | | Calvin [...] [facility] | [address] | [place], [place] | | | UNIV PTH - INTFC | | [address] | | + + + + + [...] [facility] | [address] | [place] [address] | | | SERVICES, CORE | PARK [...] [facility] | [address] | [place] [address] | | | SERVICES, CORE | [address] | | | + + + + + INR (09/05/2015 7:58 AM PST) + +-------+ + + + | Component | Value | Ref Range | Performed | Pathologist | | | | | At | Signature | + +-------+ + + + | INR | 0.93 | 0.90 - 1.20 INR | [facility] | | | | | | LABORATORY [...] [facility] | [address] | [place] [address] | | | SERVICES, CORE | PARK [...] | 30.2 | 26.0 - 36.0 | [facility] | | | | | seconds | [...] [facility] | [address] | [place] [address] | | | SERVICES, CORE | DANO [...] gene at | DIAGNOSTIC | | nucleotide 30085. Please note that this assay only detects the | LABORATORIES | | [id number] point mutation and therefore a normal result [...] has been analyzed for the presence of [id number] | | | mutation in the prothrombin [...] | | Heterozygotes for the common prothrombin [id number] mutation constitute | | | approximately 2% of the normal white population (1,2). | | | References: 1.) Nickyt et al. Blood 88, 1085-1047 (1996). 2.) Usha | | | et al. Circulation 99, 999-1004 (1999). 3.) Ana Mccarty, and | | | Seble. Amer J Clin Path 155, 439-47 (2000). This test was | | | developed and its performance characteristics determined by the [facility] | | | [facility]. It has | | | not been cleared or approved by the Food and Drug Administration. | | | FDA approval is not required for clinical use of this test, and | | | therefore validation was done as required under the requirements of | | | the Clinical Laboratory Improvement Act of 1988. The [facility] | | | Diagnostic [facility] is a fully | | | licensed and/or accredited clinical laboratory under CLIA, CAP, and | | | the [facility]. Please note that our lab now [...] + + | Performing | Address | City/State/[facility] Cent[facility]ode | Phone Number | | Organization | | | | + + + + + | [facility] | [address] | [place] [address] | | | DIAGNOSTIC | [address] [...] [facility] | [address] | [place] [address] | | | SERVICES, CORE | DANO [...] [facility] | [address] | [place] [address] | | | SERVICES, CORE | DANO [...] | + + + + + | [facility] | [address] | [place] [address] | | | SERVICES, CORE | DAN[address] [...] [facility] | [address] | [place] [address] | | | ALIYAH MCKAY | [address] [...] + + + + + | [facility] | [address] | [place] [address] | | | SERVICES, CORE | [address] | | | + + + + + MAGNESIUM, PLASMA (09/05/2015 7:58 AM PST) + +-------+ + + + | Component | Value | Ref Range | Performed | Pathologist | | | | | At | Signature | + +-------+ + + + | MAGNESIUM,P | 2.2 | 1.8 - 2.5 mg/dL | [facility] | | | LASMA | | | [...] | + + + + + | [facility] | [address] | [place] [address] | | | SERVICES, CORE | [address]AN[address] [...] | | | LABORATORY | | | TOGOLESE | | | SERVICES, | | | [...] | + + + + + | [facility] | [address] | [place] [address] | | | SERVICES, CORE | DANO [...] - | [address] | [place], [place] | | | IMMUNOGENETICS/TRANS | [address] [...] - | [address] | [place], [place] | | | IMMUNOGENETICS/TRANS | [address] [...] [facility] - | [address], | [place], [place] | | | IMMUNOGENETICS/TRANS | [address] [...] + + | [facility] - | [address] | [place] [address] | | | IMMUNOGENETICS/TRANS | [address] [...] [facility] - | [address] | [place] [address] | | | IMMUNOGENETICS/TRANS | [address] [...] [facility] - | [address], | [place] [address] | | | IMMUNOGENETICS/TRANS | [address] [...]
--- OUTSIDE RECORDS SUMMARY | ~2019-12-22 | XMS | Encounter Summary ---
Demographics + + + | Address | [address] | | | [place] [address] | + + + | Home Phone [...] [place], [place] | | | | | [address] | | + + + + + | Misty Boateng | ECON | [address] | | | | | [place], [place] | | | | | [address] | | + + + + + Care Team Providers + +------+ + | Care Foreign Correspondent Name | Role | Phone | [...] | NEPHROLOGY [address] | [address] | | | | | [address] | [address] [place] | | | | | [place], [place] | [place] [address] | | | | | [address] | [phone] | | | | | [phone] | | | +--------+ + + + [...] CT/Neck soft tissue without cont rast from [facility] diagnostic imaging, dos: 05/12/17. Sent to scanEdelmira [...] | | | | | [place] [address] | | | | | | [phone] | | | | | | | | +--------+---------+ + + + documented as of this encounter Visit Diagnoses Not on filedocumented in this encounter"
--- OUTSIDE RECORDS SUMMARY | ~2019-12-22 | XMS | Encounter Summary ---
Demographics + + + | Address | [address] | | | [place] [address] | + + + | Home Phone [...] + | Author | [facility] | | | and [place] | + + + | Organization | [facility] | | | and [place] | + + + | Address | Unknown | + + + | Phone | Unavailable | + + + Support + + + + + | Name | Relationship | Address | Phone | + + + + + | Ryan Oneill | ECON | [place], [place] | | | | | [address] | | + + + + + | Misty Boateng | ECON | [address] | | | | | [place], [place] | | | | | [address] | | + + + + + Care Team Providers + +------+ + | Care Dot Compliance Coordinator Name | Role | Phone | [...] | NEPHROLOGY [address] | [address] | | | | | [address] | [address] [place] | | | | | [place], [place] | [place] [address] | | | | | [address] | [phone] | | | | | [phone] | | | +--------+ + + + [...] | | | | | [place] [address] | | | | | | [phone] | | | | | | | [...]
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
--- OUTSIDE RECORDS SUMMARY | ~2019-12-22 | XMS | Encounter Summary ---
Demographics + + + | Address | [address] | | | [place] [address] | + + + | Home Phone [...] [place], [place] | | | | | [address] | | + + + + + | Misty Boateng | ECON | [address] | | | | | [place], [place] | | | | | [address] | | + + + + + Care Team Providers + +------+ + | Care Route Relief Driver Name | Role | Phone | [...] | NEPHROLOGY [address] | | | | | [address] | [address] [place] | | | | | [place], [place] | [place] [address] | | | | | [address] | [phone] | | | | | [phone] | | | +--------+ + + + [...] | | | | | [place] [address] | | | | | | [phone] | | | | | | | [...] - 1.03 | EXTERNAL | | | [place], | | | LAB | | | [...]
--- OUTSIDE RECORDS SUMMARY | ~2019-12-22 | XMS | Encounter Summary ---
Demographics + + + | Address | [address] [place] [address] | | | [place] [address] | + + + | Home Phone | | + + + | Preferred Language | Unknown | + + + | Marital Status | | + + + | Synagogue Affiliation | CHR | + + + [...] Providers + +------+ + | Care Hot Plate Plywood Press Laborer Name | Role | Phone | + [...] 01/06/ | Telephone | Clinical | Thi Adne, | Tx Recommendation | | 2016 | | Transplant Services | RN [address] | Tracking (vaccines) | | | | [address] | [address] | | | | | Kait Barrios [place], | [place], [place] | | | | | [place] [address] | [address] | | | | | [phone] | | | +--------+ + + + [...]
--- OUTSIDE RECORDS SUMMARY | ~2019-12-22 | XMS | Encounter Summary ---
Demographics + + + | Address | [address] | | | [place] [address] | + + + | Home Phone [...] [place], [place] | | | | | [address] | | + + + + + | Misty Boateng | ECON | [address] | | | | | [place], [place] | | | | | [address] | | + + + + + Care Team Providers + +------+ + | Care Account Consultant Name | Role | Phone | [...] NEPHROLOGY [address] | M, DO [address] | | | | | [address] | [place] | | | | | [place], [place] | [place], [place] | | | | | [address] | [address] | | | | | [phone] | | | +--------+ + + + [...] | | | | | [place] [address] | | | | | | [phone] | | | | | | | | +--------+---------+ + + + documented as of this encounter Visit Diagnoses Not on filedocumented in this encounter"
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
--- OUTSIDE RECORDS SUMMARY | ~2019-12-22 | XMS | Encounter Summary ---
Demographics + + + | Address | [address] [place] [address] | | | [place] [address] | + + + | Home Phone [...] Team Providers + +------+ + | Care Relief Mate Name | Role | Phone | + [...] | | | | | Kait Barrios [place], | [place], [place] | | | | | [place] [address] | [address] | | | | | [phone] | [phone] | | | | | | | [...] PLASMA | 44 (H) | mg/dL | [facility] - | | | (LAB) | | | [facility] | | | | | | [facility] | | | | | | OF CARE | | | | | | TESTS | | + + + + + + | ALBUMIN, | 4.0 | g/dL | [facility] - | | | PLASMA | | [...] + + + | [facility] | [address] | [place], [place] | | | [facility] | [address] | [address] | | | TESTS | | | | + + + + + documented in this encounter Visit Diagnoses Not on filedocumented in this encounter"
--- OUTSIDE RECORDS SUMMARY | ~2019-12-22 | XMS | Encounter Summary ---
Demographics + + + | Address | [address] [place] [address] | | | [place] [address] | + + + | Home Phone [...] Team Providers + +------+ + | Care Customer Associate Name | Role | Phone | [...]
--- OUTSIDE RECORDS SUMMARY | ~2019-12-22 | XMS | Encounter Summary ---
Demographics + + + | Address | [address] | | | [place] [address] | + + + | Home Phone [...] [place], [place] | | | | | [address] | | + + + + + | Misty Boateng | ECON | [address] | | | | | [place] | | | | | [address] | | + + + + + Care Team Providers + +------+ + | Care Meat Butcher Name | Role | Phone | + +------+ + | Jt Perkins MD | PCP | | + +------+ + Encounter Details +--------+ + + + + | Date | Type | Department | Care Team | Description | +--------+ + + + + | 07/22/ | Orders Only | [facility] [place] | Christine Martinez, | CKD (chronic kidney | | 2019 | | NEPHROLOGY [address] | [address] | disease) stage 4, | | | | [address] | [address] [place] | GFR 15-29 ml/min | | | | MARJ[place]IE Jaime | [place] [address] | ([facility]) (Primary Dx) | | | | [address] | [phone] | | | | | [phone] | | | +--------+ + + + [...] encounter Progress Notes Kenyatta Jacome RN - 07/22/2018 9:18 AM PSTLabs for upcoming nephrology appointment sent to: [facility] documented in t his encounter Plan of [...] | | | | | [place] [address] | | | | | | [phone] | | | | | | | | +--------+---------+ + + + documented as of this encounter Visit Diagnoses + + | Diagnosis | + + | CKD (chronic kidney disease) stage 4, GFR 15-29 ml/min ([facility]) - Primary Chronic kidney | | disease, Stage IV (severe) | + + documented in this encounter"
--- OUTSIDE RECORDS SUMMARY | ~2019-12-22 | XMS | Encounter Summary ---
Demographics + + + | Address | [address] [place] [address] | | | [place] [address] | + + + | Home Phone [...] Team Providers + +------+ + | Care Auto Adjudication Specialist Name | Role | Phone | + +------+ + | Hai Holman MD | PCP | | + +------+ + Reason for Referral Diagnostic Testing (Routine) +--------+--------+ + + + + | Status | Reason | Specialty | Diagnoses / | Referred By | Referred To | | | | | Procedures | Contact | Contact | +--------+--------+ + + + + | Closed | | Cardiology | Diagnoses | [facility] Trans | Car Echo | | | | | Chronic | Coord Renal | [facility] [address] | | | | | kidney | [address] | [address] | | | | | disease, | [address] | | | | | stage III | Dano Barrios | Bc | | | | | (moderate) | [place], [place] | [facility], 2nd | | | | | (HCC) Acute | [address] | floor | | | | | | Phone: | [place], [place] | | | | | interstitial | [phone] | [address] | | | | | nephritis | Fax: | Phone: | | | | | Procedures | [phone] | [phone] | | | | | TRANSTHORACI | | | | | | | C | | | | | | | ECHOCARDIOGR | | | | | | | AM, ADULT | | | +--------+--------+ + + + + Reason for Visit + + + | Reason | Comments | + + + | Pre Transplant | Schedule Eval | | Workup | | + + + Encounter Details +--------+ + + + + | Date | Type | Department | Care Team | Description | +--------+ + + + + | 07/31/ | Telephone | Clinical | Thi Aden, | Pre Transplant | | 2016 | | Transplant Services | RN [address] | Workup (Schedule | | | | [address] | [address] | Jose) | | | | Dano Barrios [place], | [place], [place] | | | | | [place] [address] | [address] | | | | | [phone] | | | +--------+ + + + [...] | + +--------+ + + + | TRANSTHORACIC | Routin | 09/06/2015 | Chronic kidney | Results for this | | ECHOCARDIOGRAM, | e | 9:51 AM | disease, stage III | procedure are in the | | ADULT | | PST | (moderate) ([facility]) | results section. | | | | | Acute interstitial | | | | | | nephritis | | + +--------+ + + + documented in this encounter Results TRANSTHORACIC ECHOCARDIOGRAM, ADULT (09/06/2015 9:51 AM PST) + + + + + + | Component | Value | Ref Range | Performed | Pathologist | | | | | At | Signature | + + + + + + | BIPLANE, EF | 58 | | [facility] | | | | | | OF | | | | | | CARDIOLOGY | | + + + + + + | EJECTION | 55 to 60 | | [facility] | | | FRACTION | | | OF | | | | | | CARDIOLOGY | | + + + + + + | LA | 3.9 | | [facility] | | | DIMENSION | | | OF | | | | | | CARDIOLOGY | | + + + + + + | LVIDD | 5.2 | | [facility] | | | | | | OF | | | | | | CARDIOLOGY | | + + + + + + | MV E? | 0.1 | | [facility] | | | | | | OF | | | | | | CARDIOLOGY | | + + + + + + | RVSP | 19 | | [facility] | | | | | | OF | | | | | | CARDIOLOGY | | + + + + + + | RV TAPSE | 1.9 | | [facility] | | | | | | OF | | | | | | CARDIOLOGY | | + + + + + + | RV TDI S? | 15.0 | | [facility] | | | | | | OF | | | | | | CARDIOLOGY | | + + + + + + | EJECTION | 57.5 | % | [facility] | | | FRACTION | | | OF | | | RANGE MEAN | | | CARDIOLOGY | | | VALUE | | | | | + + [...] + + + + + | [facility] | [address] | [place], [place] | | | CARDIOLOGY | [address] | [address] | | + + + + + 12 LEAD ECG (09/06/2015 9:45 AM PST) [...] + + + + | [facility] | [address] | [place], [place] | | | CARDIOLOGY | [facility] | [address] | | + + + + + X-RAY CHEST 2 VIEW (09/06/2015 8:49 AM [...] | | | | | signed / MANUEL | | | | | [...] | | + +---------+ + + | [facility] | | | | | RADIOLOGY | | | | + +---------+ + + US ABDOMEN COMPLETE (09/06/2015 8:37 AM PST) [...] | | | | | nicky / HUGO | | | | | [...] | | + +---------+ + + | [facility] OF | | | | | RADIOLOGY | | | | + +---------+ + + DRUG SCREEN,URINE;W/ECTOR (09/05/2015 7:58 AM PST) + + + [...] + + + + | [facility] | [address] | [place] [address] | | | SERVICES, CORE | DANO [...] 5 | | | | | | ng/hC2-FX-Rljssqkf 50 | | | | | | [...] | | | | | determined by [facility] | | | | | | Laboratories. See | | | | | | Compliance Statement B: | | | | | | [email or web address] | | | | | | by [address] | | | | | | Jhonny Pérez, [facility],[place] | | | | | | [address] | | | | | | [phone].aruplab. | | | | | | comCalvin, | | | | | | , [...] REG UNIV | | | | and 8-XL-olssaaqg is | | PTH - INTFC | | | | ametabolite of cotinine. | | | | | | After cessation from | | | | | | long-term orheavy use of | | | | | | nicotine products, | | | | | | 2-WJ-hvvbagww may | | | | | | [...] [facility] | [address] | [place], [place] | | | UNIV PTH - INTFC | | [address] | | + + + + + [...] + | [facility] - | [address] | [place] [address] | | | [place] | | | [...] + | [facility] - | [address] | [place], [place] [address] | | | [facility] | | | | + [...] by | | | | | | [address] | | | | | | Jhonny Pérez, [facility],[place] | | | | | | [address] | | | | | | [phone].[employer]. | | | | | | jose, Calvin Ty, | | | | | | , [...] [facility] | [address] | [place], [place] | | | UNIV PTH - INTFC | | [address] | | + + + + + [...] at | | | | | | [email or web address] | | | | | | x.Performed by [facility] | | | | | | [facility],[address] [place] [address] | | | | | | [place] [address] | | | | | | [phone].[email or web address]. | | | | | | [facility], Calvin Ty, | | | | | | , [...] [facility] | [address] | [place], [place] | | | UNIV PTH - INTFC | | [address] | | + + + + + [...] + | [facility] - | [address] | [place] [address] | | | [facility] | | | | + [...] by | | | | | | [address] | | | | | | Jhonny Pérez, [facility],[place] | | | | | | [address] | | | | | | [phone].[email or web address]. | | | | | | [facility], Calvin Ty, | | | | | | , [...] [facility] | [address] | [place], [place] | | | UNIV PTH - INTFC | | [address] | | + + + + + [...] modified from | [facility] | | original gta's approved specifications. | LABORATORY | | | SERVICES, | | | SPECIAL IMM + | | | COAG | + + + + + + + + | Performing | Address | City/State/Zipcode | Phone Number | | Organization | | | | + + + + + | [facility] | [address] | [place] [address] | | | SERVICES, SPECIAL | PARK [...] 12-100,000,000 IU/mL These results are most | [facility] | | likely suggestive of either the [...] + + + | [facility] | [address] | [place] [address] | | | DIAGNOSTIC | [address] [...] | + + + + + | [facility] - | [address] | [place] [address] | | | [facility] | | | | + [...] + | [facility] - | [address] | [place] [address] | | | [place] | | | [...] + | [facility] - | [address] | [place] [address] | | | [place] | | | [...] + | [facility] - | [address] | [place] [address] | | | [facility] | | | | + [...] by | | | | | | [facility],[address] | | | | | | Jhonny Pérez, [facility],[place] | | | | | | [address] | | | | | | [phone].SocialShieldlab. | | | | | | Calvin [...] [facility] | [address] | [place], [place] | | | UNIV PTH - INTFC | | [address] | | + + + + + [...] by | | | | | | [address] | | | | | | Jhonny Pérez, [facility],[place] | | | | | | [address] | | | | | | [phone].ExpertFilelab. | | | | | | [facility], Calvin Ty, | | | | | [...] + + | [facility] | [address] | [place], [place] | | | UNIV PTH - INTFC | | [address] | | + + + + + [...] + | [facility] | [address] | [place] [address] | | | SERVICES, CORE | DAN[address] [...] + | [facility] | [address] | [place] [address] | | | SERVICES, CORE | [address] | | | + + + + + INR (09/05/2015 7:58 AM PST) + +-------+ + + + | Component | Value | Ref Range | Performed | Pathologist | | | | | At | Signature | + +-------+ + + + | INR | 0.93 | 0.90 - 1.20 INR | [facility] | | | | | [...] + + + + | [facility] | [address] | [place] [address] | | | SERVICES, ALIYAH | [address] | | | + + + + + APTT (ACT. PART. THROMBO TIME) (09/05/2015 7:58 AM PST) + +-------+ + + + | Component | Value | Ref Range | Performed | Pathologist | | | | | At | Signature | + +-------+ + + + | APTT | 30.2 | 26.0 - 36.0 | [facility] | | | | | seconds | [...] 0.7 U/mL | LABORATORY | | | ALIYAH MCKAY | + + + + + + + + | Performing | Address | City/State/Zipcode | Phone Number | | Organization | | | | + + + + + | [facility] | [address] | [place] [address] | | | ALIYAH MCKAY | [address] [...] INTERPRETATION: Prothrombin mutation analysis shows that | [facility] | | there is no mutation in either copy of the prothrombin gene at | DIAGNOSTIC | | nucleotide 43466. Please note that this assay only detects the | LABORATORIES | | [id number] point mutation and therefore a normal result [...] has been analyzed for the presence of [id number] | | | mutation in the prothrombin [...] | | Heterozygotes for the common prothrombin W50584H mutation constitute | | | approximately 2% of the normal white population (1,2). | | | References: 1.) Poort et al. Blood 88, 1125-8798 (1996). 2.) Usha | | | et al. Circulation 99, 999-1004 (1998). 3.) Ana Mccarty, and | | | Press. Amer J Clin Path 155, 439-47 (2001). This test was | | | developed and its performance characteristics determined by the [facility] | | | [facility]. It has | | | not been cleared or approved by the Food and Drug Administration. | | | FDA approval is not required for clinical use of this test, and | | | therefore validation was done as required under the requirements of | | | the Clinical Laboratory Improvement Act of 1988. The [facility] | | | Diagnostic [facility] is a fully | | | licensed and/or accredited clinical laboratory under CLIA, CAP, and | | | the [facility]. Please note that our lab now [...] + + + + + | [facility] | [address] | [place] [address] | | | DIAGNOSTIC | [address] [...] | 200 (H) | <200 mg/dL | [facility] | | | (LAB) [...] + + | [facility] | [address] | [place] [address] | | | SERVICES, CORE | PARK [...] + + + + + | [facility] | [address] | [place] [address] | | | ALIYAH MCKAY | [address] | | | + [...] + | [facility] | [address] | [place] [address] | | | SERVICES, CORE | PARK [...] | + + + + + | [facility] | [address] | [place] [address] | | | SERVICES, CORE | [address]AN[address] [...] + + | [facility] | [address] | [place] [address] | | | SERVICES, CORE | [address] | | | + + + + + MAGNESIUM, PLASMA (09/05/2015 7:58 AM PST) + +-------+ + + + | Component | Value | Ref Range | Performed | Pathologist | | | | | At | Signature | + +-------+ + + + | MAGNESIUM,P | 2.2 | 1.8 - 2.5 mg/dL | [facility] | | | LASMA | | | [...] + | [facility] | [address] | [place] [address] | | | SERVICES, CORE | P[address] [...] | | | LABORATORY | | | [place] | | | SERVICES, | | | [...] the MDRD equation recommended by the | [facility] | | National Kidney Disease Education Program. [...] + + + + + | [facility] | [address] | [place] [address] | | | SERVICES, CORE | [address] [...] + + | [facility] | [address], | [place] [address] | | | IMMUNOGENETICS/TRANS | [address] | | | | PLANT LABORATORY | | | | + + + + + LIT HLA-A LOW KRISHNA-ESTEVAN (09/05/2015 7:58 AM PST) + + | Specimen | + + | Blood - Blood | | (substance) | + + + + + + + | Performing | Address | City/State/Zipcode | Phone Number | | Organization | | | | + + + + + | [facility] - | [address] | [place] [address] | | | IMMUNOGENETICS/TRANS | [address] | | | | PLANT LABORATORY | | | | + + + + + LIT HLA-B LOW RES-KE (09/05/2015 7:58 AM PST) + + | Specimen | + + | Blood - Blood | | (substance) | + + + + + + + | Performing | Address | City/State/Zipcode | Phone Number | | Organization | | | | + + + + + | [facility] - | [address] | [place] [address] | | | IMMUNOGENETICS/TRANS | [address] [...] + + | [facility] - | [address] | [place] [address] | | | IMMUNOGENETICS/TRANS | [address] [...] + | [facility] - | [address], | [place] [address] | | | IMMUNOGENETICS/TRANS | [address] | | | | PLANT LABORATORY | | | | + + + + + LIT HLA-DQ LOW RESSAVANNAH (09/05/2015 7:58 AM PST) + + | Specimen | + + | Blood - Blood | | (substance) | + + + + + + + | Performing | Address | City/State/Zipcode | Phone Number | | Organization | | | | + + + + + | [facility] - | [address] | [place] [address] | | | IMMUNOGENETICS/TRANS | [address] | | | | PLANT LABORATORY | | | | + + + + + documented in this encounter Visit Diagnoses + + | Diagnosis | + + | Acute interstitial nephritis - Primary Other acute glomerulonephritis with other | | specified pathological lesion in kidney | + + | Chronic kidney disease, stage III (moderate) (HCC) Chronic kidney disease, Stage III | | (moderate) | + + documented in this encounter"
--- OUTSIDE RECORDS SUMMARY | ~2019-12-22 | XMS | Encounter Summary ---
Demographics + + + | Address | [address] | | | [place] [address] | + + + | Home Phone [...] [place], [place] | | | | | [address] | | + + + + + | Misty Boateng | ECON | [address] | | | | | [place], [place] | | | | | [address] | | + + + + + Care Team Providers + +------+ + | Care Ostrich Farmer Name | Role | Phone | + [...] NEPHROLOGY [address] | MD [address] | | | | | [address] | [address] [place] | | | | | [place], [place] | [place] [address] | | | | | [address] | [phone] | | | | | [phone] | | | +--------+ + + + [...] | | | | | [place] [address] | | | | | | [phone] | | | | | | | [...]
--- OUTSIDE RECORDS SUMMARY | ~2019-12-22 | XMS | Encounter Summary ---
Demographics + + + | Address | [address] | | | [place] [address] | + + + | Home Phone [...] [place], [place] | | | | | [address] | | + + + + + | Misty Boateng | ECON | [address] | | | | | [place], [place] | | | | | [address] | | + + + + + Care Team Providers + +------+ + | Care Lead Informatica Developer Name | Role | Phone [...] | NEPHROLOGY [address] | [address] | | | | | [address] | [address] [place] | | | | | [place], [place] | [place] [address] | | | | | [address] | [phone] | | | | | [phone] | | | +--------+ + + + [...] | | | | | [place] [address] | | | | | | [phone] | | | | | | | [...] 1.013 | | EXTERNAL | | | [place], | | | LAB | | | [...]
--- OUTSIDE RECORDS SUMMARY | ~2019-12-22 | XMS | Encounter Summary ---
Demographics + + + | Address | [address] [place] [address] | | | [place] [address] | + + + | Home Phone | | + + + | Preferred Language | Unknown | + + + | Marital Status | | + + + | Religion Affiliation | CHR | + + + [...] Team Providers + +------+ + | Care License Registration Examiner Name | Role | Phone | [...] | | | [facility] at | [facility], | | | | | [facility] [address] | [place] [address] | | | | | [place] Mailcode: | [phone] | | | | | [facility] | | | | | | and Healing, | | | | | | [address] | | | | | | [place], [place] | | | | | | [address] | | | | | | [phone] | | | +--------+ + + + [...]
--- OUTSIDE RECORDS SUMMARY | ~2019-12-22 | XMS | Encounter Summary ---
Demographics + + + | Address | [address] | | | [place] [address] | + + + | Home Phone [...] [place], [place] | | | | | [address] | | + + + + + | Misty Boateng | ECON | [address] | | | | | [place], [place] | | | | | [address] | | + + + + + Care Team Providers + +------+ + | Care Community Relations Liaison Name | Role | Phone | + [...] NEPHROLOGY [address] | MD [address] | nephritis chronic | | | | [address] | [address] [place] | (Primary Dx) | | | | [place] | [place] [address] | | | | | [address] | [phone] | | | | | [phone] | | | +--------+ + + + [...] | | | | | [place] [address] | | | | | | [phone] | | | | | | | | +--------+---------+ + + + documented as of this encounter Visit Diagnoses + + | Diagnosis | + + | 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
--- OUTSIDE RECORDS SUMMARY | ~2019-12-22 | XMS | Encounter Summary ---
Demographics + + + | Address | [address] [place] [address] | | | [place] [address] | + + + | Home Phone [...] Team Providers + +------+ + | Care Curriculum Coordinator Name | Role | Phone | [...] | | | [place], | [place] [address] | | | | | [place] [address] | | | | | | [phone] | | | +--------+ + + + [...]
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
--- OUTSIDE RECORDS SUMMARY | ~2019-12-22 | XMS | Encounter Summary ---
Demographics + + + | Address | [address] | | | [place] [address] | + + + | Home Phone [...] [place], [place] | | | | | [address] | | + + + + + | Misty Boateng | ECON | [address] | | | | | [place] | | | | | [address] | | + + + + + [...] | | | disease, | [address] [place] [address] | | | | stage 4 | [place] | [address] [place] | | | | | (severe) | [address] | [place] | | | | | (HCC) | [place], | [address] Phone: | | | | | Essential | [place] | [phone] | | | | | hypertension | [address] | Fax: | | | | | , benign | Phone: | [phone] | | | | | Procedures | [phone] | | | | | | [place] OFFICE | Fax: | | | | | | OUTPATIENT | [phone] | | | | | | VISIT 25 | | | | | | | MINUTES | | | + +--------+ + + + + Encounter Details +--------+---------+ + + + | Date | Type | Department | Care Team | Description | +--------+---------+ + + + | 12/14/ | Office | [facility] | Christine Martinze W, | CKD (chronic kidney | | 2019 | Visit | NEPHROLOGY [address] | [address] | disease) stage 4, | | | | [address] | [address] [place] | GFR 15-29 ml/min | | | | [place], [place] | [place] [address] | ([facility]) (Primary Dx); | | | | [address] | [phone] | Essential | | | | [phone] | | hypertension; | | | | | | Secondary | | | | | | hyperparathyroidism | | | | | | ([facility]); Crohn's | | | | | | disease in remission | | | | | | ([facility]) | +--------+---------+ + + + Social History [...] cancer lesions. Pt is working with his facilitator on this. Pt states he has been [...] added to kidney transplant waiting list at [facility] Waiting time qualifying date: 10/04/15 04/28/16- Active on transplant list at [facility]. Referred to [facility]. Cleared for transplant by Dr. Lorenzo/ [...] for the 12/14/18 encounter (Office Visit) with aMdhuri Martinez MD Medication Sig Dispense Refill Adalimumab [...] 12/14/2018 Negative Negative, 100 mg/dL Final Specific [place], [facility], [facility] 12/14/2018 1.010 1.001 - 1.030 Final Blood, UA, [facility] 12/14/2018 Trace Intact* Negative Final pH, UA, [facility] 12/14/2018 6.0 5.0, 6.0, 7.0, 8.0, 5.5, 6.5, 7.5 Final Protein, [facility]A, [facility] 12/14/2018 Trace* Negative Final Urobilinogen, UA, [facility] 12/14/2018 0.2 0.2, Negative, Normal, < 0.2 mg/dL, 1 mg/dL, < 0. 2 E.U./dl, 1.0 E.U./dL, 0.2 mg/dL Final Nitrite, UA, [facility] 12/14/2018 Negative Negative Final Leukocyte Esterase, UA, [facility] 12/14/2018 Negative Negative Final Abstract on [...] RBC, External 11/30/2018 5 Final UA Specific [place], External 11/30/2018 1.019 Final UA Leukocyte Esterase, External 11/30/2018 negative Final ASSESSMENT AND PLAN: 1. CKD (chronic kidney disease) stage 4, GFR 15-29 ml/min ([facility]) Due to h/o interstitial ne phritis. Serum creatinine is stable. EGFR is 25 mL/min. -Pt is on hold at [facility] transplant list. 2. Essential hypertension Clinic BP is elevated. -Will start amlodipine 5 mg daily. 3. Secondary hyperparathyroidism (HCC) Serum calcium and phos levels within normal. -Will check PTH and vit D at next visit. 4. Crohn's disease in remission (HCC) On Humira. Pt is tapering off his azathioprine, unde r guidance of his facilitator. Telephone call for BP check. Return in [...] | | | | | [place] [address] | | | | | | [phone] | | | | | | | [...] 1.001 - 1.030 | | | | [place], | | | | | | [facility]A, [...]
--- OUTSIDE RECORDS SUMMARY | ~2019-12-22 | XMS | Encounter Summary ---
Demographics + + + | Address | [address] | | | [place] [address] | + + + | Home Phone | | + + + | Preferred Language | Unknown | + + + | Marital Status | | + + + | Buddhism Affiliation | 1041 | + + + [...] [place], [place] | | | | | [address] | | + + + + + | Misty Boateng | ECON | [address] | | | | | [place], [place] | | | | | [address] | | + + + + + Care Team Providers + +------+ + | Care Pocket Marker Name | Role | Phone | + [...] | NEPHROLOGY [address] | [address] | disease, stage IV | | | | [address] | [address] [place] | (severe) (HCC) | | | | [place], [place] | [place] [address] | (Primary Dx) | | | | [address] | [phone] | | | | | [phone] | | | +--------+ + + + [...] [place] | | | | | | [place] [address] | | | | | | [phone] | | | | | | | | +--------+---------+ + + + documented as of this encounter Visit Diagnoses + + | Diagnosis | + + | Chronic kidney disease, stage IV (severe) (HCC) - Primary Chronic kidney disease, | | Stage IV (severe) | + + documented in this encounter"
--- OUTSIDE RECORDS SUMMARY | ~2019-12-22 | XMS | Encounter Summary ---
Demographics + + + | Address | [address] | | | [place] [address] | + + + | Home Phone | | + + + | Preferred Language | Unknown | + + + | Marital Status | | + + + | Christianity Affiliation | 1041 | + + + | Race | Unknown | + + + | Ethnic Group | Unknown | + + + Author + + + | Author | [facility] | | | and [place] | + + + | Organization | [facility] | | | and [place] | + + + | Address | Unknown | + + + | Phone | Unavailable | + + + Support + + + + + | Name | Relationship | Address | Phone | + + + + + | Ryan Oneill | ECON | [place], [place] | | | | | [address] | | + + + + + | Misty Boateng | ECON | [address] | | | | | [place], [place] | | | | | [address] | | + + + + + Care Team Providers + +------+ + | Care Directory Operator Name | Role | Phone | + +------+ + PCP | Unavailable | + +------+ + Encounter Details +--------+ + + + + | Date | Type | Department | Care Team | Description | +--------+ + + + + | 05/23/ | Abstract | [facility] | Christine Martinez W, | HTN (hypertension), | | 2015 | | NEPHROLOGY [address] | MD [address] | benign (Primary Dx); | | | | [address] | [address] [place] | Interstitial | | | | [place], [place] | [place] [address] | nephritis chronic | | | | [address] | [phone] | | | | | [phone] | | | +--------+ + + + [...] encounter Progress Notes Kenyatta Jacome RN - 05/23/2015 4:19 PM PSTLabs for nephrology [facility] documented in this en counter Plan of [...] | | | | | [place] [address] | | | | | | [phone] | | | | | | | | +--------+---------+ + + + documented as of this encounter Procedures + +--------+ + + + | Procedure Name | Priori | Date/Time | Associated Diagnosis | Comments | | | ty | | | | + +--------+ + + + | EXTERNAL LAB: ANIVAL | Routin | 05/11/2015 | | Results for this | | | e | | | procedure are in the | | | | | | results section. | + +--------+ + + + | EXTERNAL LAB: | Routin | 05/11/2015 | | Results for this | | GLUCOSE | e | | | procedure are in the | | | | | | results section. | + +--------+ + + + | EXTERNAL LAB: ALT | Routin | 05/11/2015 | | Results for this | | | e | | | procedure are in the | | | | | | results section. | + +--------+ + + + | EXTERNAL LAB: AST | Routin | 05/11/2015 | | Results for this | | | e | | | procedure are in the | | | | | | results section. | + +--------+ + + + | EXTERNAL LAB: | Routin | 05/11/2015 | | Results for this | | ALKALINE PHOSPHATASE | e | | | procedure are in the | | | | | | results section. | + +--------+ + + + | EXTERNAL LAB: | Routin | 05/11/2015 | | Results for this | | BILIRUBIN, TOTAL | e | | | procedure are in the | | | | | | results section. | + +--------+ + + + | EXTERNAL LAB: | Routin | 05/11/2015 | | Results for this | | ALBUMIN | e | | | procedure are in the | | | | | | results section. | + +--------+ + + + | EXTERNAL LAB: | Routin | 05/11/2015 | | Results for this | | PROTEIN, TOTAL | e | | | procedure are in the | | | | | | results section. | + +--------+ + + + | EXTERNAL LAB: | Routin | 05/11/2015 | | Results for this | | CALCIUM | e | | | procedure are in the | | | | | | results section. | + +--------+ + + + | EXTERNAL LAB: CARBON | Routin | 05/11/2015 | | Results for this | | DIOXIDE | e | | | procedure are in the | | | | | | results section. | + +--------+ + + + | EXTERNAL LAB: | Routin | 05/11/2015 | | Results for this | | CHLORIDE | e | | | procedure are in the | | | | | | results section. | + +--------+ + + + | EXTERNAL LAB: | Routin | 05/11/2015 | | Results for this | | POTASSIUM | e | | | procedure are in the | | | | | | results section. | + +--------+ + + + | EXTERNAL LAB: SODIUM | Routin | 05/11/2015 | | Results for this | | | e | | | procedure are in the | | | | | | results section. | + +--------+ + + + | EXTERNAL LAB: | Routin | 05/11/2015 | | Results for this | | URINALYSIS | e | | | procedure are in the | | | | | | results section. | + +--------+ + + + | EXTERNAL LAB: CBC | Routin | 05/11/2015 | | Results for this | | | e | | | procedure are in the | | | | | | results section. | + +--------+ + + + | EXTERNAL LAB: TSH | Routin | 05/11/2015 | | Results for this | | | e | | | procedure are in the | | | | | | results section. | + +--------+ + + + | EXTERNAL LAB: EGFR | Routin | 05/11/2015 | | Results for this | | | e | | | procedure are in the | | | | | | results section. | + +--------+ + + + | EXTERNAL LAB: | Routin | 05/11/2015 | | Results for this | | CREATININE | e | | | procedure are in the | | | | | | results section. | + +--------+ + + + | EXTERNAL LAB: ALT | Routin | 04/25/2015 | | Results for this | | | e | | | procedure are in the | | | | | | results section. | + +--------+ + + + | EXTERNAL LAB: AST | Routin | 04/25/2015 | | Results for this | | | e | | | procedure are in the | | | | | | results section. | + +--------+ + + + | EXTERNAL LAB: | Routin | 04/25/2015 | | Results for this | | ALKALINE PHOSPHATASE | e | | | procedure are in the | | | | | | results section. | + +--------+ + + + | EXTERNAL LAB: | Routin | 04/25/2015 | | Results for this | | BILIRUBIN, TOTAL | e | | | procedure are in the | | | | | | results section. | + +--------+ + + + | EXTERNAL LAB: | Routin | 04/25/2015 | | Results for this | | ALBUMIN | e | | | procedure are in the | | | | | | results section. | + +--------+ + + + | EXTERNAL LAB: | Routin | 04/25/2015 | | Results for this | | PROTEIN, TOTAL | e | | | procedure are in the | | | | | | results section. | + +--------+ + + + | EXTERNAL LAB: CBC | Routin | 04/25/2015 | | Results for this | | | e | | | procedure are in the | | | | | | results section. | + +--------+ + + + documented in this encounter Results External Lab: ANIVAL (05/11/2015) + +-------+ + + + | Component | Value | Ref Range | Performed | Pathologist | | | | | At | Signature | + +-------+ + + + | BUN, | 37 | | EXTERNAL | | | External | | | LAB | | + +-------+ + + + + +---------+ + + | Performing | Address | City/State/Zipcode | Phone Number | | Organization | | | | + +---------+ + + | EXTERNAL LAB | | | | + +---------+ + + External Lab: Glucose (05/11/2015) + +-------+ + + + | Component | Value | Ref Range | Performed | Pathologist | | | | | At | Signature | + +-------+ + + + | Glucose, | 90 | | EXTERNAL | | | External | | | LAB | | + +-------+ + + + + +---------+ + + | Performing | Address | City/State/Zipcode | Phone Number | | Organization | | | | + +---------+ + + | EXTERNAL LAB | | | | + +---------+ + + External Lab: ALT (05/11/2015) + +-------+ + + + | Component | Value | Ref Range | Performed | Pathologist | | | | | At | Signature | + +-------+ + + + | ALT, | 15 | | EXTERNAL | | | External | | | LAB | | + +-------+ + + + + +---------+ + + | Performing | Address | City/State/Zipcode | Phone Number | | Organization | | | | + +---------+ + + | EXTERNAL LAB | | | | + +---------+ + + External Lab: AST (05/11/2015) + +-------+ + + + | Component | Value | Ref Range | Performed | Pathologist | | | | | At | Signature | + +-------+ + + + | AST, | 12 | | EXTERNAL | | | External | | | LAB | | + +-------+ + + + + +---------+ + + | Performing | Address | City/State/Zipcode | Phone Number | | Organization | | | | + +---------+ + + | EXTERNAL LAB | | | | + +---------+ + + External Lab: Alkaline Phosphatase (05/11/2015) + +-------+ + + + | Component | Value | Ref Range | Performed | Pathologist | | | | | At | Signature | + +-------+ + + + | ALP, | 70 | | EXTERNAL | | | External | | | LAB | | + +-------+ + + + + +---------+ + + | Performing | Address | City/State/Zipcode | Phone Number | | Organization | | | | + +---------+ + + | EXTERNAL LAB | | | | + +---------+ + + External Lab: Bilirubin, Total (05/11/2015) + +-------+ + + + | Component | Value | Ref Range | Performed | Pathologist | | | | | At | Signature | + +-------+ + + + | Bilirubin, | 0.6 | | EXTERNAL | | | Total, | | | LAB | | | External | | | | | + +-------+ + + + + +---------+ + + | Performing | Address | City/State/Zipcode | Phone Number | | Organization | | | | + +---------+ + + | EXTERNAL LAB | | | | + +---------+ + + External Lab: Albumin (05/11/2015) + +-------+ + + + | Component [...] +---------+ + + External Lab: Protein, Total (05/11/2015) + +-------+ + + + | Component [...] + +---------+ + + External Lab: Calcium (05/11/2015) + +-------+ + + + | Component [...] +---------+ + + External Lab: Carbon Dioxide (05/11/2015) + +-------+ + + + | Component | Value | Ref Range | Performed | Pathologist | | | | | At | Signature | + +-------+ + + + | Carbon | 22 | | EXTERNAL | | | Dioxide, | | | LAB | | | External | | | | | + +-------+ + + + + +---------+ + + | Performing | Address | City/State/Zipcode | Phone Number | | Organization | | | | + +---------+ + + | EXTERNAL LAB | | | | + +---------+ + + External Lab: Chloride (05/11/2015) + +-------+ + + + | Component | Value | Ref Range | Performed | Pathologist | | | | | At | Signature | + +-------+ + + + | Chloride, | 102 | | EXTERNAL | | | External | | | LAB | | + +-------+ + + + + +---------+ + + | Performing | Address | City/State/Zipcode | Phone Number | | Organization | | | | + +---------+ + + | EXTERNAL LAB | | | | + +---------+ + + External Lab: Potassium (05/11/2015) + +-------+ + + + | Component [...] + +---------+ + + External Lab: Sodium (05/11/2015) + +-------+ + + + | Component | Value | Ref Range | Performed | Pathologist | | | | | At | Signature | + +-------+ + + + | Sodium, | 137 | | EXTERNAL | | | External | | | LAB | | + +-------+ + + + + +---------+ + + | Performing | Address | City/State/Zipcode | Phone Number | | Organization | | | | + +---------+ + + | EXTERNAL LAB | | | | + +---------+ + + External Lab: Urinalysis (05/11/2015) + + + + + + | [...] 1.011 | | EXTERNAL | | | [place], | | | LAB | | | [...] + +---------+ + + External Lab: CBC (05/11/2015) + +-------+ + + + | Component | Value | Ref Range | Performed | Pathologist | | | | | At | Signature | + +-------+ + + + | WBC, | 6.7 | | EXTERNAL | | | External | | | LAB | | + +-------+ + + + | HGB, | 12.5 | | EXTERNAL | | | External | | | LAB | | + +-------+ + + + | HCT, | 38.1 | | EXTERNAL | | | External | | | LAB | | + +-------+ + + + | PLT, | 307 | | EXTERNAL | | | External | | | LAB | | + +-------+ + + + | RBC, | 4.25 | | EXTERNAL | | | External | | | LAB | | + +-------+ + + + | MCV, | 89 | | EXTERNAL | | | External | | | LAB | | + +-------+ + + + | RDW, | 13.6 | | EXTERNAL | | | External | | | LAB | | + +-------+ + + + + +---------+ + + | Performing | Address | City/State/Zipcode | Phone Number | | Organization | | | | + +---------+ + + | EXTERNAL LAB | | | | + +---------+ + + External Lab: TSH (05/11/2015) + +-------+ + + + | Component | Value | Ref Range | Performed | Pathologist | | | | | At | Signature | + +-------+ + + + | TSH, | 3.5 | | EXTERNAL | | | External [...] + +---------+ + + External Lab: eGFR (05/11/2015) + +-------+ + + + | Component [...] + +---------+ + + External Lab: Creatinine (05/11/2015) + +-------+ + + + | Component | Value | Ref Range | Performed | Pathologist | | | | | At | Signature | + +-------+ + + + | Creatinine, | 3.16 | | EXTERNAL | | | External [...] + +---------+ + + External Lab: ALT (04/25/2015) + +-------+ + + + | Component | Value | Ref Range | Performed | Pathologist | | | | | At | Signature | + +-------+ + + + | ALT, | 53 | | EXTERNAL | | | External | | | LAB | | + +-------+ + + + + +---------+ + + | Performing | Address | City/State/Zipcode | Phone Number | | Organization | | | | + +---------+ + + | EXTERNAL LAB | | | | + +---------+ + + External Lab: AST (04/25/2015) + +-------+ + + + | Component | Value | Ref Range | Performed | Pathologist | | | | | At | Signature | + +-------+ + + + | AST, | 21 | | EXTERNAL | | | External | | | LAB | | + +-------+ + + + + +---------+ + + | Performing | Address | City/State/Zipcode | Phone Number | | Organization | | | | + +---------+ + + | EXTERNAL LAB | | | | + +---------+ + + External Lab: Alkaline Phosphatase (04/25/2015) + +-------+ + + + | Component | Value | Ref Range | Performed | Pathologist | | | | | At | Signature | + +-------+ + + + | ALP, | 136 | | EXTERNAL | | | External | | | LAB | | + +-------+ + + + + +---------+ + + | Performing | Address | City/State/Zipcode | Phone Number | | Organization | | | | + +---------+ + + | EXTERNAL LAB | | | | + +---------+ + + External Lab: Bilirubin, Total (04/25/2015) + +-------+ + + + | Component | Value | Ref Range | Performed | Pathologist | | | | | At | Signature | + +-------+ + + + | Bilirubin, | 0.6 | | EXTERNAL | | | Total, | | | LAB | | | External | | | | | + +-------+ + + + + +---------+ + + | Performing | Address | City/State/Zipcode | Phone Number | | Organization | | | | + +---------+ + + | EXTERNAL LAB | | | | + +---------+ + + External Lab: Albumin (04/25/2015) + +-------+ + + + | Component | Value | Ref Range | Performed | Pathologist | | | | | At | Signature | + +-------+ + + + | Albumin, | 4.6 | | EXTERNAL | | | External | | | LAB | | + +-------+ + + + + +---------+ + + | Performing | Address | City/State/Zipcode | Phone Number | | Organization | | | | + +---------+ + + | EXTERNAL LAB | | | | + +---------+ + + External Lab: Protein, Total (04/25/2015) + +-------+ + + + | Component [...] + +---------+ + + External Lab: CBC (04/25/2015) + +-------+ + + + | Component | Value | Ref Range | Performed | Pathologist | | | | | At | Signature | + +-------+ + + + | WBC, | 8.0 | | EXTERNAL | | | External | | | LAB | | + +-------+ + + + | HGB, | 12.9 | | EXTERNAL | | | External | | | LAB | | + +-------+ + + + | HCT, | 38.2 | | EXTERNAL | | | External | | | LAB | | + +-------+ + + + | PLT, | 339 | | EXTERNAL | | | External | | | LAB | | + +-------+ + + + | RBC, | 4.03 | | EXTERNAL | | | External | | | LAB | | + +-------+ + + + | MCV, | 95 | | EXTERNAL | | | External | | | LAB | | + +-------+ + + + | RDW, | 14.6 | | EXTERNAL | | | External [...] + | Diagnosis | + + | HTN (hypertension), benign - Primary Essential hypertension, benign | + + | 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
--- OUTSIDE RECORDS SUMMARY | ~2019-12-22 | XMS | Encounter Summary ---
Demographics + + + | Address | [address] [place] [address] | | | [place] [address] | + + + | Home Phone | | + + + | Preferred Language | Unknown | + + + | Marital Status | | + + + | Gnosticist Affiliation | CHR | + + + [...] Team Providers + +------+ + | Care Mail Delivery Supervisor Name | Role | Phone | [...] | | | | | Kait Barrios [place], | [place], [place] | | | | | [place] [address] | [address] | | | | | [phone] | [phone] | | | | | | | [...] AMADOR | NON [facility] | | [address] [address] | | |[place] [address] | | + + + + +---------+ + + | Performing | Address | City/State/Zipcode | Phone Number | | Organization | | | | + +---------+ + + | NON [facility] | | | | + +---------+ + + documented in this encounter Visit Diagnoses Not on filedocumented in this encounter"
--- OUTSIDE RECORDS SUMMARY | ~2019-12-22 | XMS | Encounter Summary ---
Demographics + + + | Address | [address] | | | [place] [address] | + + + | Home Phone | | + + + | Preferred Language | Unknown | + + + | Marital Status | | + + + | Anabaptism Affiliation | 1041 | + + + | Race | Unknown | + + + | Ethnic Group | Unknown | + + + Author + + + | Author | [facility] | | | and [place] | + + + | Organization | [facility] | | | and [place] | + + + | Address | Unknown | + + + | Phone | Unavailable | + + + Support + + + + + | Name | Relationship | Address | Phone | + + + + + | Ryan Oneill | ECON | [place], [place] | | | | | [address] | | + + + + + | Misty Boateng | ECON | [address] | | | | | [place] | | | | | [address] | | + + + + + Care Team Providers + +------+ + | Care Clocksmith Name | Role | Phone | + [...] | | | disease, | [address] | | | | | stage 4 | Gleason | [address] | | | | | (severe) | [address] | [place] | | | | | (HCC) | [place], | [address] Phone: | | | | | Essential | [place] | [phone] | | | | | hypertension | [address] | Fax: | | | | | , benign | Phone: | [phone] | | | | | Procedures | [phone] | | | | | | NM OFFICE | Fax: | | | | | | OUTPATIENT | [phone] | | | | | | VISIT 25 | | | | | | | MINUTES | | | + +--------+ + + + + Encounter Details +--------+---------+ + + + | Date | Type | Department | Care Team | Description | +--------+---------+ + + + | 08/23/ | Office | [facility] | Christine Martinez W, | CKD (chronic kidney | | 2020 | Visit | NEPHROLOGY [address] | disease) stage 4, | | | | [address] | [address] [place] | GFR 15-29 ml/min | | | | [place], [place] | [place] [address] | ([facility]) (Primary Dx); | | | | [address] | [phone] | Essential | | | | [phone] | | hypertension | +--------+---------+ + + [...] to kidney transplant waiting list at [facility] Waiting time qualifying date: 10/04/15 04/28/16- Active on transplant list at [facility]. Referred to [facility]. Cleared for transplant by Dr. Lorenzo/ Dr. [...] 08/23/2019 Negative Negative, 100 mg/dL Final Specific [place], UA, POC 08/23/2019 1.010 1.001 - 1.030 [...] | | | | | [address] [facility] | | | | | | [place] [address] | | | | | | [phone] | | | | | | | [...] 1.001 - 1.030 | | | | [place], | | | | | | UA, [...] 4, GFR 15-29 ml/min ([facility]) - Primary Chronic kidney | | disease, Stage IV (severe) | + + | Essential hypertension Unspecified essential hypertension | + + documented in this encounter"
--- OUTSIDE RECORDS SUMMARY | ~2019-12-22 | XMS | Encounter Summary ---
Demographics + + + | Address | [address] | | | [place] [address] | + + + | Home Phone [...] [place], [place] | | | | | [address] | | + + + + + | Misty Boateng | ECON | [address] | | | | | [place], [place] | | | | | [address] | | + + + + + Care Team Providers + +------+ + | Care Veterinary Livestock Inspector Name | Role | Phone | [...] | NEPHROLOGY [address] | [address] | | | | | [address] | [address] [place] | | | | | [place], [place] | [place] [address] | | | | | [address] | [phone] | | | | | [phone] | | | +--------+ + + + [...] | | | | | [place] [address] | | | | | | [phone] | | | | | | | [...]
--- OUTSIDE RECORDS SUMMARY | ~2019-12-22 | XMS | Encounter Summary ---
Demographics + + + | Address | [address] | | | [place] [address] | + + + | Home Phone [...] [place], [place] | | | | | [address] | | + + + + + | Misty Boateng | ECON | [address] | | | | | [place], [place] | | | | | [address] | | + + + + + Care Team Providers + +------+ + | Care Concrete Craftsman Name | Role | Phone | + [...] | NEPHROLOGY [address] | [address] | disease, stage V | | | | [address] | [address] [place] | ([facility]) | | | | [place], [place] | [place] [address] | | | | | [address] | [phone] | | | | | [phone] | | | +--------+ + + + [...] | | | | | [place] [address] | | | | | | [phone] | | | | | | | | +--------+---------+ + + + documented as of this encounter Visit Diagnoses + + | Diagnosis | + + | Chronic kidney disease, stage V (HCC) Chronic kidney disease, Stage V | + + documented in this encounter"
--- OUTSIDE RECORDS SUMMARY | ~2019-12-22 | XMS | Encounter Summary ---
Demographics + + + | Address | [address] [place] [address] | | | [place] [address] | + + + | Home Phone [...] Team Providers + +------+ + | Care Shrimp Boat Captain Name | Role | Phone | + [...] | | | | | Kait Barrios [place], | | | | | | [place] [address] | | | +--------+ + + + [...] - | [address] | [place], [place] | | | IMMUNOGENETICS/TRANS | [address] [...] - | [address] | [place], [place] | | | IMMUNOGENETICS/TRANS | [address] [...] + + + | [facility] - | [address] | [place] [address] | | | IMMUNOGENETICS/TRANS | [address] | | | | [facility] | | | | + + + + + documented in this encounter Visit Diagnoses Not on filedocumented in this encounter"
--- OUTSIDE RECORDS SUMMARY | ~2019-12-22 | XMS | Encounter Summary ---
Demographics + + + | Address | [address] [place] [address] | | | [place] [address] | + + + | Home Phone | | + + + | Preferred Language | Unknown | + + + | Marital Status | | + + + | Quaker Affiliation | CHR | + + + [...] Team Providers + +------+ + | Care Embossing Press Operator Name | Role | Phone [...] 2020 - | Encounter | Unit at [facility] [address] | [address] | | | | | [place] Mailcode: | Dano Barrios [place], | | | 12/05/ | | [facility] | [place] [address] | | | 2019 | | and [place], | [phone] | | | | | [address] | | | | | | [place], [place] | | | | | | [address] | | | | | | [phone] | | | +--------+ + + + [...] Skinner MD - 12/06/2019 9:37 AM PDT [facility] Inpatient Discharge Summary Patient: Seema Oneill ([id number]) Author: Mario Alberto Caballero MD Attending: Tim [...] by mouth two times daily. Humira Pen Ahtkht-EZ-YU Start 40 mg/0.8 mL Pnkt Generic drug: [...] to 4:30pm, call the Otolaryngology clinic at [phone]. For emergencies that occur after hours, weekends, and holidays, call the [facility] oper ator at [phone] and ask to have the ENT doctor on-call paged Follow-up: Schedule the following appointment(s) when you get home CHAGO NUNEZ MD. Specialty: Internal Medicine Contact information [facility] [address] [place] [address] Tim Skinner MD In 2 weeks. Specialty: Otolaryngology Why: virtual visit Contact information [address] [place] [address] Discharge Physical Exam: [...] - Head and Neck Surgery [facility] [place] Pager: [phone] This patient's history and examination was discussed with me. I agree with the plan of care that has been recommended. Tim Skinner MD [facility] Head and Neck Surgical Oncology Microvascular Reconstructive [...] liquid nitrogen by Dr. Darnell Yee in [place] AIN (acute interstitial nephritis) 2008 Anemia [...] kidney disease) stage 4, GFR 15-29 ml/min ([facility]) MDRD6 19.28 on 06/21/2015 Crohn's disease of colon ([facility]) 2008 sparing rectum and sigmoid [...] Depression takes venlafaxine Encounter for extracorporeal dialysis ([facility]) Esophageal reflux NSAID induced peptic ulcer disease; [...] - now treatment deferred to GI Dr. Jhaveir Renal failure Renal hypertension 4081 diagnosis Sleep apnea Varicella childhood chicken pox [...] improved overnight with compazine & zofran [place] [address] Outpatient Care Unit Pager # [phone] 12/06/2019 documented in th is encounter Plan [...] | SERVICES, | | | | (initials [facility] and | [facility] | | | | medical record number | | HEALTH + | | | | [id number].A. Neck, Left | | HEALING | | [...] identified. | | | | | | Food Science Professor sections | | | | | | are submitted. Cassette | | | | | | Summary:A1-2, nodule 1, | | | | | | bisectedA3, nodule | | | | | | 2A4-5, dental detail representative | | | | | | [...] | + + + + + | [facility] | [address] | [place] [address] | | | PATHOLOGY | [address] | | | + + + + + | [facility] | [address] | [place] [address] | | | [facility] | | | | | [...]
--- OUTSIDE RECORDS SUMMARY | ~2019-12-22 | XMS | Encounter Summary ---
Demographics + + + | Address | [address] | | | [place] [address] | + + + | Home Phone | | + + + | Preferred Language | Unknown | + + + | Marital Status | | + + + | Scientologist Affiliation | 1041 | + + + [...] [place], [place] | | | | | [address] | | + + + + + | Misty Boateng | ECON | [address] | | | | | [place] | | | | | [address] | | + + + + + Care Team Providers + +------+ + | Care Chef & Owner Name | Role | Phone | + +------+ + | Jt Perkins MD | PCP | | + +------+ + Encounter Details +--------+ + + + + | Date | Type | Department | Care Team | Description | +--------+ + + + + | 05/03/ | Orders Only | [facility] | Conversion | | | 2013 | | NEPRHOLOGY [place] | Transaction, | | | | | [address] | Provider Unknown | | | | | [address] [place], [place] | [phone] | | | | | [address] | | | | | | [phone] | | | +--------+ + + + [...] | | | | | | [place] [address] | | | | | | [phone] | | | | | | | | +--------+---------+ + + + documented as of this encounter Procedures + +--------+ + + + | Procedure Name | Priori | Date/Time | Associated Diagnosis | Comments | | | ty | | | | + +--------+ + + + | EXTERNAL LAB: CBC | Routin | 05/03/2014 | | Results for this | | | e | 12:00 AM | | procedure are in the | | | | PDT | | results section. | + +--------+ + + + | URINALYSIS WITH | Routin | 05/03/2014 | | Results for this | | MICROSCOPIC WITH | e | 12:00 AM | | procedure are in the | | CULTURE IF INDICATED | | PDT | | results section. | + +--------+ + + + | COMPREHENSIVE | Routin | 05/03/2014 | | Results for this | | METABOLIC PANEL | e | 12:00 AM | | procedure are in the | | | | PDT | | results section. | + +--------+ + + + documented in this encounter Results Urinalysis with Microscopic with Culture if Indicated (05/03/2014 12:00 AM PDT) + + + + [...] + + + | Spec Grav, | 1.018 | | EXTERNAL | | | Fluid [...] + + + + | Ketones | Negative | | EXTERNAL | | | | [...] + + + | WBC, UA | 0 | | EXTERNAL | | | | | | LAB | | + + + + + + | RBC, UA | 2 | | EXTERNAL | | | | | | LAB | | + + + + + + | Epithelial | 1+ | | EXTERNAL | | | Cells | | | LAB | | + + + + + + | Bacteria, | None Seen | | EXTERNAL | | | UA | | | LAB | | + + + + + + | HYALINE | None Seen | | EXTERNAL | | | CASTS [...] + +---------+ + + External Lab: CBC (05/03/2014 12:00 AM PDT) + +-------+ + + + | Component | Value | Ref Range | Performed | Pathologist | | | | | At | Signature | + +-------+ + + + | WBC | 5.0 | 10 | EXTERNAL | | | | | | LAB | | + +-------+ + + + | Red Blood | 4.48 | 10 | EXTERNAL | | | Cells | | | LAB | | | Counted | | | | | + +-------+ + + + | Hemoglobin | 14.5 | g/dL | EXTERNAL | | | | | | LAB | | + +-------+ + + + | Hematocrit, | 42.4 | % | EXTERNAL | | | POC | | | LAB | | + +-------+ + + + | MCV | 94.6 | fL | EXTERNAL | | | | | | LAB | | + +-------+ + + + | MCH | 32 | pg | EXTERNAL | | | | | | LAB | | + +-------+ + + + | MCHC | 34 | g/dL | EXTERNAL | | | | | | LAB | | + +-------+ + + + | Platelet | 284 | K/ L | EXTERNAL | | | Count | | | LAB | | | Plasma | | | | | + +-------+ + + + | RDW-CV | | % | EXTERNAL | | | | | | LAB | | + +-------+ + + + | MPV | | fL | EXTERNAL | | | | | | LAB | | + +-------+ + + + | Differentia | | | EXTERNAL | | | l Type | | | LAB | | + +-------+ + + + | % Segmented | | % | EXTERNAL | | | | | | LAB | | | Neutrophils | | | | | + +-------+ + + + | % | | % | EXTERNAL | | | Lymphocytes | | | LAB | | + +-------+ + + + | % Monocytes | | % | EXTERNAL | | | | | | LAB | | + +-------+ + + + | % | | % | EXTERNAL | | | Eosinophils | | | LAB | | + +-------+ + + + | % Basophils | | % | EXTERNAL | | | [...] + +---------+ + + Comprehensive Metabolic Panel (05/03/2014 12:00 AM PDT) + +-------+ + + + | Component | Value | Ref Range | Performed | Pathologist | | | | | At | Signature | + +-------+ + + + | Glucose, | 90 | mg/dL | EXTERNAL | | | Fasting | | | LAB | | + +-------+ + + + | BUN | 20 | mg/dL | EXTERNAL | | | | | | LAB | | + +-------+ + + + | Creatinine | 1.73 | mg/dL | EXTERNAL | | | | | | LAB | | + +-------+ + + + | BUN/Creatin | 11.6 | | EXTERNAL | | | ine Ratio | | | LAB | | + +-------+ + + + | Calcium | 10.0 | mg/dL | EXTERNAL | | | | | | LAB | | + +-------+ + + + | Protein, | 7.9 | g/dL | EXTERNAL | | | Total | | | LAB | | + +-------+ + + + | Albumin | 4.8 | | EXTERNAL | | | | | | LAB | | + +-------+ + + + | Globulin | 3.1 | | EXTERNAL | | | | | | LAB | | + +-------+ + + + | A/G Ratio | 1.5 | | EXTERNAL | | | | | | LAB | | + +-------+ + + + | Bilirubin | 1.0 | mg/dL | EXTERNAL | | | Total | | | LAB | | + +-------+ + + + | ALP, | 131 | | EXTERNAL | | | External | | | LAB | | + +-------+ + + + | ALT | 28 | U/L | EXTERNAL | | | | | | LAB | | + +-------+ + + + | AST | 20 | U/L | EXTERNAL | | | | | | LAB | | + +-------+ + + + | Na | 135 | mmol/L | EXTERNAL | | | | | | LAB | | + +-------+ + + + | K | 3.9 | mmol/L | EXTERNAL | | | | | | LAB | | + +-------+ + + + | Cl | 104 | mmol/L | EXTERNAL | | | | | | LAB | | + +-------+ + + + | CO2 | 25 | mmol/L | EXTERNAL | | | | | | LAB | | + +-------+ + + + | Anion Gap | 9.9 | mmol/L | EXTERNAL | | | | | | LAB | | + +-------+ + + + | Estimated | 44 | mg/dL | EXTERNAL | | | [...]
--- OUTSIDE RECORDS SUMMARY | ~2019-12-22 | XMS | Encounter Summary ---
Demographics + + + | Address | [address] [place] [address] | | | [place] [address] | + + + | Home Phone [...] Team Providers + +------+ + | Care Braiding Machine Tender Name | Role | Phone [...] | | | | | kidney | [place] | [address] [facility] | | | | | disease, | [address] | [address] | | | | | stage 4 | Nephrology | [address] [place], | | | | | (severe) | [address] | [place] | | | | | Illness, | [address] | [address] | | | | | unspecified | [address] | Phone: | | | | | | Ciara [place]rb[place], | [phone] | | | | | | [place] [address] | Fax: | | | | | | Phone: | [phone] | | | | | | [phone] | | | | | | | Fax: | | | | | | | [phone] | | +--------+--------+ + + + + [...] | | | | [address] | [place], [place] | (severe) (HCC) | | | | Physician's | [address] | (Primary Dx); Anemia | | | | Pavilion, 3rd Floor | [phone] | of chronic renal | | | | [place], [place] | | failure, stage 4 | | | | [address] | | (severe) (HCC); | | | | [phone] | | Benign hypertension; | | | [...] you. 4. We can get an infectious senior treasury consultant to help make a decision about your work conditions a fter transplantation. Jah Reyna MD Professor of Urology protection analyst, Division of Abdominal Organ Transplantation documented in [...] following: Chronic kidney disease, stage IV (severe) ([facility])[585.4] 1. Progressive renal dysfxn 2. Abnormal R renal CT 3. Renal Bx: 11/25: Interstitial nephritis. ([place]) 4. Corticosteroids instituted: 11/25 5. Negative immunologic w/u: ADAM, anti-DNA 6. eGFR 18: 08/2015 7. 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 . 2 healthy children. 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 Potential living donor? [...] recurrenc e in a kidney transplant). 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 Jah Reyna MD protection analyst, Division of Abdominal Organ Transplantation Professor of Urology CC: Christine Martinez MD [facility] [address] [address] documented in this encoun ter Plan of [...]
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
--- OUTSIDE RECORDS SUMMARY | ~2019-12-22 | XMS | Encounter Summary ---
Demographics + + + | Address | [address] [place] [address] | | | [place] [address] | + + + | Home Phone [...] Team Providers + +------+ + | Care Marine Biologist Name | Role | Phone | + +------+ + | Jt Perkins MD | PCP | | + +------+ + Reason for Visit + + + | Reason | Comments | + + + | Lab Results | ARNALDOD-GFR Calcuation 04-13-19 | + + + Encounter Details +--------+ + + + + | Date | Type | Department | Care Team | Description | +--------+ + + + + | 04/26/ | Abstract | Clinical | Santos Lorenzo, | Lab Results | | 2019 | | Transplant Services | [address] | (MDRD-GFR Calcuation | | | | [address] | [address] | 04-13-19) | | | | Kait Barrios [place], | [place], [place] | | | | | [place] [address] | [address] | | | | | [phone] | [phone] | | | | | | | [...] + | MDRD 6 | Routin | 04/13/2019 | | Results for this | | | e | | | procedure are in the | | | | | | results section. | + +--------+ + + + documented in this encounter Results MDRD 6 (04/13/2019) + +-------+ + + + | Component | Value | Ref Range | Performed | Pathologist | | | | | At | Signature | + +-------+ + + + | MDRD6 | 23.86 | | [facility] | | | | | | [facility] | | + +-------+ + + + | CREATININE | 3.08 | mg/dL | [facility] | | | [facility] | | | [facility] | | | (LAB) | | | | | + +-------+ + + + | ALBUMIN, | 4.2 | g/dL | [facility] | | | [facility] | | | [facility] | | | (LAB) | | | | | + +-------+ + + + | BUN, PLASMA | 38 | mg/dL | [facility] | | | (LAB) | | | [facility] | | + +-------+ + + + [...] | | + +---------+ + + | [facility] | | | [phone] | + +---------+ + + documented in this encounter Visit Diagnoses Not on filedocumented in this encounter"
--- OUTSIDE RECORDS SUMMARY | ~2019-12-22 | XMS | Encounter Summary ---
Demographics + + + | Address | [address] | | | [place] [address] | + + + | Home Phone | | + + + | Preferred Language | Unknown | + + + | Marital Status | | + + + | Moravian Affiliation | 1041 | + + + | Race | Unknown | + + + | Ethnic Group | Unknown | + + + Author + + + | Author | [facility] | | | and [place] | + + + | Organization | [facility] | | | and [place] | + + + | Address | Unknown | + + + | Phone | Unavailable | + + + Support + + + + + | Name | Relationship | Address | Phone | + + + + + | Ryan Oneill | ECON | [place], [place] | | | | | [address] | | + + + + + | Misty Boateng | ECON | [address] | | | | | [place], [place] | | | | | [address] | | + + + + + Care Team Providers + +------+ + | Care Director Payer Name | Role | Phone | + [...] | NEPHROLOGY [address] | [address] | | | | | [address] | [address] [place] | | | | | [place], [place] | [place] [address] | | | | | [address] | [phone] | | | | | [phone] | | | +--------+ + + + [...] | | | | | [place] [address] | | | | | | [phone] | | | | | | | [...]
--- OUTSIDE RECORDS SUMMARY | ~2019-12-22 | XMS | Encounter Summary ---
Demographics + + + | Address | [address] | | | [place] [address] | + + + | Home Phone [...] | Author | [facility] | | | and [place] | + + + | Organization | [facility] | | | and [place] | + + + | Address | Unknown | + + + | Phone | Unavailable | + + + Support + + + + + | Name | Relationship | Address | Phone | + + + + + | Ryan Oneill | ECON | [place], [place] | | | | | [address] | | + + + + + | Misty Boateng | ECON | [address] | | | | | [place], [place] | | | | | [address] | | + + + + + Care Team Providers + +------+ + | Care Manager Activities Name | Role | Phone | + +------+ + PCP | Unavailable | + +------+ + Encounter Details +--------+ + + + + | Date | Type | Department | Care Team | Description | +--------+ + + + + | 11/28/ | Hospital | [facility] | Travis Randall MD | | | 2017 | [facility] | [address] | | | | | [address] | [place] [address] [place], [place] | | | | | [place], [place] | [address] | | | | | [address] | [phone] | | | | | [phone] | | | +--------+ + + + [...] | Blood Pressure | 121/76 | 11/28/2016 10:34 AM | | | | | PDT | | + + + + + | Pulse | 65 | 11/28/2016 10:34 AM | | | | | PDT | | + + + + + | Temperature | 36.6 C (97.8 F) | 11/28/2016 10:34 AM | | | | | PDT | | + + + + + | Respiratory Rate | 16 | 11/28/2016 10:34 AM | | | | | PDT | | + + + + + | Oxygen Saturation | - | - | | + + + + + | Inhaled Oxygen | - | - | | | Concentration | | | | + + + + + | Weight | 84.1 kg (185 lb 6.6 | 11/28/2016 10:34 AM | | | | oz) | PDT | | + + + + + | Height | 182.9 cm (6') | 11/28/2016 10:34 AM | | | | | PDT | | + + + + + | Body Mass Index | 25.15 | 11/28/2016 10:34 AM | | | | | PDT [...] Progress Notes Conversion Transaction, Provider Unknown - 11/28/2016 10:31 AM PDTFormatting of this note m ight be different from the original. Nurse Progress Note by Rosalina Rangel RN at 11/28/16 1031 Author: Rosalina Rangel RN Service: General Surgery Author Type: Registered Nurse Filed: 11/28/16 1032 Date of Service: 11/28/161030 Status: Signed Band Builder: Rosalina Rangel RN (Registered Nurse) Discharge instructions went over with patient and patient spouse all questions answered pat ient sent home with prescription. docume nted in this encounter Plan of Treatment +--------+---------+ + + + | Date | Type | Specialty | Care Team | Description | +--------+---------+ + + + | 03/20/ | Office | Nephrology | Christine Martinez, | | | 2019 | Visit | | [address] | | | | | | [address] [place] | | | | | | [place] [address] | | | | | | [phone] | | | | | | | | +--------+---------+ + + + documented as of this encounter Procedures + +--------+ + + + | Procedure Name | Priori | Date/Time | Associated Diagnosis | Comments | | | ty | | | | + +--------+ + + + | HISTORICAL | Timed | 11/28/2016 | | Results for this | | MICROBIOLOGY RESULT | | 8:59 AM | | procedure are in the | | | | PDT | | results section. | + +--------+ + + + documented in this encounter Results HISTORICAL MICROBIOLOGY RESULT (11/28/2016 8:59 AM PDT) + + | Specimen | + + | | + + + + + | Narrative | Performed At | + + + | Specimen Description CATHETER TIP CULTURE | EXTERNAL LAB | | NO GROWTH 2 DAYS | | + + + + +---------+ + + | Performing | Address | City/State/Zipcode | Phone Number | | Organization | | | | + +---------+ + + | EXTERNAL LAB | | | | + +---------+ + + documented in this encounter Visit Diagnoses Not on filedocumented in this encounter"
--- OUTSIDE RECORDS SUMMARY | ~2019-12-22 | XMS | Encounter Summary ---
Demographics + + + | Address | [address] [place] [address] | | | [place] [address] | + + + | Home Phone [...] Team Providers + +------+ + | Care Identifier Horse Name | Role | Phone | + +------+ + | Hai Holman MD | PCP | | + +------+ + Reason for Visit + + + | Reason | Comments | + + + | Social Work | | | Transplant | | | Evaluation | | + + + Encounter Details +--------+ + + + + | Date | Type | Department | Care Team | Description | +--------+ + + + + | 09/06/ | Documentati | Clinical | Nyla Downing, | Social Work | | 2016 | on | Transplant Services | CLERK OPERATOR [place], [place] | Transplant | | | | [address] | [address] | Evaluation | | | | K[place], | | | | | | [place] [address] | | | | | | [phone] | | | +--------+ + + + [...]
--- OUTSIDE RECORDS SUMMARY | ~2019-12-22 | XMS | Encounter Summary ---
Demographics + + + | Address | [address] | | | [place] [address] | + + + | Home Phone [...] + + | Author | [facility] | | | and [place] | + + + | Organization | [facility] | | | and [place] | + + + | Address | Unknown | + + + | Phone | Unavailable | + + + Support + + + + + | Name | Relationship | Address | Phone | + + + + + | Ryan Oneill | ECON | [place], [place] | | | | | [address] | | + + + + + | Misty Boateng | ECON | [address] | | | | | [place], [place] | | | | | [address] | | + + + + + Care Team Providers + +------+ + | Care Groundman/Lineman Name | Role | Phone | + [...] | NEPHROLOGY [address] | [address] | | | | | [address] | [address] [place] | | | | | [place], [place] | [place] [address] | | | | | [address] | [phone] | | | | | [phone] | | | +--------+ + + + [...] | | | | | [place] [address] | | | | | | [phone] | | | | | | | [...] 1.011 | | EXTERNAL | | | [place], | | | LAB | | | [...]
--- OUTSIDE RECORDS SUMMARY | ~2019-12-22 | XMS | Encounter Summary ---
Demographics + + + | Address | [address] [place] [address] | | | [place] [address] | + + + | Home Phone [...] Team Providers + +------+ + | Care Shingle Weaver Name | Role | Phone | + [...] | | | | | Kait Barrios [place], | | | | | | [place] [address] | | | | | | [phone] | | | +--------+ + + + [...]
--- OUTSIDE RECORDS SUMMARY | ~2019-12-22 | XMS | Encounter Summary ---
Demographics + + + | Address | [address] [place] [address] | | | [place] [address] | + + + | Home Phone [...] Team Providers + +------+ + | Care Tyre Retreader Name | Role | Phone | + [...] | | | NEPHROLOGY | [place], | [place], [place] | | | | | | [place] [address] | [address] | | | | | | Phone: | | | | | | | [phone] | | | | | | | Fax: | | | | | | | [phone] | | +--------+ + + + + [...] on Examination of | | | | [place], [place] | | Urine | | | | [address] | | | | | | [phone] | | | +--------+---------+ + + + [...] nephrology issues by Dr. Carlito Gaona in [place], [place]. He is being m anaged for interstitial nephritis based on a bx (October) done in [place], [place]. Initial medicine evaluation was for persistent/recurrent fever, chills, night sweats, weigh t loss (20+ pounds). Symptom onset was after the first of this year. He was treated with emp iric antibiotics (does not remember the names) for 4 weeks with no response. Ultimately saw Dr. Max Holman in [place]. W/U identified elevated Scr and pyuria. He [...] It was recommended that he seek "medical jail" and be referred for renal transplantation. 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 Alcohol Use: Yes Rare Drug Use: No Social History Narrative [place]ian. . 2 healthy children. 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 ferrous sulfate (IRON) 325 mg [...] in the path specimens obtained of a id sculitis Recommendation/Plan: 1. Given his current sxs, [...] + + + | [facility] | [address] | [place] [address] | | | PATHOLOGY | [address] | | | + + + + + | [facility] | [address] | [place] [address] | | | PATHOLOGY | [address] [...] Performed At | + + + | [id number] Estimated GFR = 37 mL/min/1.73 sq m if non- | [facility] | | Micronesian [id number] Estimated GFR = 45 mL/min/1.73 sq m if | DEPARTMENT OF | | Micronesian GFR is estimated using the MDRD equation [...] | + + + + + | [facility] DEPARTMENT | [address] | [place] [address] | | | PATHOLOGY | [address] | | | + + + + + | [facility] DEPARTMENT | [address] | [place] [address] | | | PATHOLOGY | [address] [...] | + + + + + | [facility] DEPART[facility] | [address] | [place] [address] | | | PATHOLOGY | [address] | | | + + + + + | [facility] DEPART[facility] | [address] | [place] [address] | | | PATHOLOGY | [address] [...] [facility] | [address] | [place], [place] | | | [facility] POINT OF CARE | [address] | [address] | | | TESTS | | | | + + + + + | [facility] | [address] | [place], [place] | | | TESTS | [address] | [address] | | + + + + + [...] + + | [facility] - | [address] | [place] | [phone] | | [place] | | | | [...]
--- OUTSIDE RECORDS SUMMARY | ~2019-12-22 | XMS | Encounter Summary ---
Demographics + + + | Address | [address] [place] [address] | | | [place] [address] | + + + | Home Phone [...] Team Providers + +------+ + | Care Rn Outpatient Surgery Name | Role | Phone | + [...] floor | | | | | | [place], [place] | | | | | | [address] | | | | | | [phone] | | | +--------+------+ + + + [...] | | | | PDT | (Moderate) ([facility]) | results section. | + +--------+ + + + | RENAL FUNCTION SET | Routin | 03/12/2009 | Chronic Kidney | Results for this | | (NA,K,CL,CO2,BUN,CRE | e | 11:04 AM | Disease, Stage III | procedure are in the | | AT,GLUC,CA,PHOS,ALB | | PDT | (Moderate) ([facility]) | results section. | | ) | | | | | + +--------+ + + + | SEDIMENTATION RATE | Routin | 03/12/2009 | Chronic Kidney | Results for this | | | e | 11:04 AM | Disease, Stage III | procedure are in the | | | | PDT | (Moderate) ([facility]) | results section. | + +--------+ + [...] OF | [address] | [place] [address] | | | PATHOLOGY | [address] | | | + + + + + | [place] [facility]PARTMENT OF | [address] | [place] [address] | | | PATHOLOGY | [address] | | | + + + + + SEDIMENTATION RATE (03/12/2009 11:04 AM PDT) + +-------+ + + + | Component | Value | Ref Range | Performed | Pathologist | | | | | At | Signature | + +-------+ + + + | SEDIMENTATI | 8 | <16 mm/hr | [facility] | | | ON RATE | | [...] | + + + + + | [facility] | [address] [facility] | [place] [address] | | | PATHOLOGY | [address] | | | + + + + + | [facility] | [address] [facility] | [place] [address] | | | PATHOLOGY | [address] [...] Performed At | + + + | [id number] Estimated GFR = 37 mL/min/1.73 sq m if non- | [facility] | | [place] [id number] Estimated GFR = 45 mL/min/1.73 sq m if | DEPARTMENT OF | | [place] GFR is estimated using the MDRD equation [...] | + + + + + | [facility] | [address] [facility] | [place] [address] | | | PATHOLOGY | [address] | | | + + + + + | [facility] | [address] [facility] | [place] [address] | | | PATHOLOGY | [address] [...] + + + + + | [facility] DEPARTMENT | [address] | [place] [address] | | | PATHOLOGY | [address] | | | + + + + + | [facility] | [address] [facility] | [place] [address] | | | PATHOLOGY | [address] | | | + + + + + documented in this encounter Visit Diagnoses + + | Diagnosis | + + | Chronic kidney disease, stage III (moderate) (HCC) Chronic kidney disease, Stage III | | (moderate) | + + documented in this encounter"
--- OUTSIDE RECORDS SUMMARY | ~2019-12-22 | XMS | Encounter Summary ---
Demographics + + + | Address | [address] [place] [address] | | | [place] [address] | + + + | Home Phone [...] Providers + +------+ + | Care Software Computer Specialist Name | Role | Phone | [...] | | | | | Kait Barrios [place], | [place], [place] | | | | | [place] [address] | [phone] | | | | | [phone] | | | +--------+ + + + [...]
--- OUTSIDE RECORDS SUMMARY | ~2019-12-22 | XMS | Encounter Summary ---
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 Monocytes | 7.0Comment: Testing | % | EXTERNAL | | | | performed at [facility];[address] | | LAB | | | | [address];[place] | | | | | | [address] | | | | + + + + + + | % | 0.0Comment: Testing | % | EXTERNAL | | | Eosinophils | performed at [facility];[address] | | LAB | | | | [address];[place] | | | | | | [address] | | | | + + + + + + | % Basophils | 0.1Comment: Testing | % | EXTERNAL | | | | performed at [facility];[address] | | LAB | | | | [address];[place] | | | | | | [address] | | | | + + + + + + | Absolute | 11.3 (H)Comment: Testing | 1.9 - 7.4 K/uL | EXTERNAL | | | Segmented | performed at [facility];[address] | | LAB | | | Neutrophils | [address];[place] | | | | | | [address] | | | | + + + + + + | Absolute | 0.4 (L)Comment: Testing | 1.0 - 3.9 K/uL | EXTERNAL | | | Lymphocytes | performed at [facility];[address] | | LAB | | | | [address];[place] | | | | | | [address] | | | | + + + + + + | Absolute | 0.9 (H)Comment: Testing | 0 - 0.8 K/uL | EXTERNAL | | | Monocytes | performed at [facility];[address] | | LAB | | | | [address];[place] | | | | | | [address] | | | | + + + + + + | Absolute | 0.0Comment: Testing | 0 - 0.5 K/uL | EXTERNAL | | | Eosinophils | performed at [facility];[address] | | LAB | | | | [address];[place] | | | | | | [address] | | | | + + + + + + | Absolute | 0.0Comment: Testing | 0 - 0.1 K/uL | EXTERNAL | | | Basophils | performed at [facility];[address] | | LAB | | | | [address];[place] | | | | | | [address] | | | | + + + + + + | Differentia | SLIDE SCANNED, AGREES | | EXTERNAL | | | l Comments | WITH AUTOMATED | | LAB | | | | RESULTS.Comment: RBC AND | | | | | | PLT MORPHOLOGY APPEAR | | | | | | NORMALTesting performed | | | | | | at [facility];[address];[place] [address] | | | | + + + [...] | | | performed at [facility];888 | mmol/L | LAB | | | | [address];[place] | | | | | | [address] | | | | + + + + + + | K | 4.5Comment: Testing | 3.5 - 4.9 | EXTERNAL | | | | performed at [facility];888 | mmol/L | LAB | | | | [address];[place] | | | | | | [address] | | | | + + + + + + | Cl | 111 (H)Comment: Testing | 99 - 109 mmol/L | EXTERNAL | | | | performed at [facility];[address] | | LAB | | | | [address];[place] | | | | | | [address] | | | | + + + + + + | CO2 | 22 (L)Comment: Testing | 23 - 32 mmol/L | EXTERNAL | | | | performed at [facility];[address] | | LAB | | | | [address];[place] | | | | | | [address] | | | | + + + + + + | Anion Gap | 11Comment: Testing | 5 - 20 mmol/L | EXTERNAL | | | | performed at [facility];[address] | | LAB | | | | [address];[place] | | | | | | [address] | | | | + + + + + + | Glucose, | 144 (H)Comment: Testing | 65 - 99 mg/dL | EXTERNAL | | | Fasting | performed at [facility];[address] | | LAB | | | | [address];[place] | | | | | | [address] | | | | + + + + + + | BUN | 22Comment: Testing | 8 - 25 mg/dL | EXTERNAL | | | | performed at [facility];[address] | | LAB | | | | [address];[place] | | | | | | [address] | | | | + + + + + + | Creatinine | 2.11 (H)Comment: Testing | 0.70 - 1.30 | EXTERNAL | | | | performed at [facility];888 | mg/dL | LAB | | | | [address];[place] | | | | | | [address] | | | | + + + + + + | BUN/Creatin | 10Comment: Testing | | EXTERNAL | | | ine Ratio | performed at [facility];[address] | | LAB | | | | [address];[place] | | | | | | [address] | | | | + + + + + + | Calcium | 7.9 (L)Comment: Testing | 8.5 - 10.2 | EXTERNAL | | | | performed at [facility];888 | mg/dL | LAB | | | | [address];[place] | | | | | | [address] | | | | + + + + + + | Protein, | 6.1 (L)Comment: Testing | 6.3 - 8.2 g/dL | EXTERNAL | | | Total | performed at [facility];[address] | | LAB | | | | [address];[place] | | | | | | [address] | | | | + + + + + + | Albumin | 3.5 (L)Comment: Testing | 3.6 - 5.0 g/dL | EXTERNAL | | | | performed at [facility];[address] | | LAB | | | | [address];[place] | | | | | | [address] | | | | + + + + + + | Globulin | 2.6Comment: Testing | 1.3 - 4.9 g/dL | EXTERNAL | | | | performed at [facility];[address] | | LAB | | | | [address];[place] | | | | | | [address] | | | | + + + + + + | A/G Ratio | 1.3Comment: Testing | 1.0 - 2.4 | EXTERNAL | | | | performed at [facility];[address] | | LAB | | | | [address];[place] | | | | | | [address] | | | | + + + + + + | Bilirubin | 0.5Comment: Testing | 0.1 - 1.5 mg/dL | EXTERNAL | | | Total | performed at [facility];[address] | | LAB | | | | [address];[place] | | | | | | [address] | | | | + + + + + + | ALP, | 52Comment: Testing | 35 - 115 U/L | EXTERNAL | | | External | performed at [facility];[address] | | LAB | | | | [address];[place] | | | | | | [address] | | | | + + + + + + | AST | 32Comment: Testing | 10 - 45 U/L | EXTERNAL | | | | performed at [facility];[address] | | LAB | | | | [address];[place] | | | | | | [address] | | | | + + + + + + | ALT | 32Comment: Testing | 10 - 65 U/L | EXTERNAL | | | | performed at [facility];[address] | | LAB | | | | [address];[place] | | | | | | [address] | | | | + + + [...] | | | | at [facility];[address];[place] [address] | | | | + + + [...] - 03/04/2019 8:42 PM PDT HOTEL 43 [id number] HIP LEFT | | WO CONTRAST04/09/2014 8:25 [...] | Screen, | performed at [facility] | | | | | UA, POC | [address];[place] | | | | | | [address] | | | | + + + [...] | | | performed at [facility] | | | | | | [address];[place] | | | | | | [address] | | | | + + + [...] | | | | | [facility];[address] [place] [address] | | | | | | Blvd;[place] [address] | | | | + + + [...] | | | performed at [facility];[address] | | | | | | [address];[place] | | | | | | [address] | | | | + + + + + + | Methadone | NEGATIVEComment: | | EXTERNAL | | | | Positive cutoff for | | LAB | | | | MTD = 300 ng/mLTesting | | | | | | performed at [facility];[address] | | | | | | [address];[place] | | | | | | [address] | | | | + + + [...] | | | performed at [facility];[address] | | | | | | [address];[place] | | | | | | [address] | | | | + + + [...] | | | performed at [facility];[address] | | | | | | [address];[place] | | | | | | [address] | | | | + + + [...] | | | performed at [facility];[address] | | | | | | [address] [facility];[place], [place] | | | | | | [address] | | | | + + + [...] | | | performed at [facility];[address] | | | | | | [address];[place] | | | | | | [address] | | | | + + + + + + | RBC, UA | 26-50Comment: QA FLAGS | 0 - 2 /hpf | EXTERNAL | | | | AND/OR RANGES MODIFIED | | LAB | | | | BY DEMOGRAPHIC UPDATE ON | | | | | | 04/09 AT 0950Testing | | | | | | performed at [facility];[address] | | | | | | [address];[place] | | | | | | [address] | | | | + + + + + + | Epithelial | 1-5Comment: Testing | /lpf | EXTERNAL | | | Cells | performed at [facility];[address] | | LAB | | | | [address];[place] | | | | | | [address] | | | | + + + + + + | Bacteria, | TRACE (A)Comment: | | EXTERNAL | | | UA | Testing performed at | | LAB | | | | [facility];[address];[place] [address] | | | | + + + + + + | CASTS | 1-5Comment: | /lpf | EXTERNAL | | | | HYALINETesting performed | | LAB | | | | at [facility];[address];[place] [address] | | | | | | | [...] GROWTH | | | Testing performed at [facility], [address] | | [place] [address] | | + + + + +---------+ [...] Chava, Rad Conversion - 03/04/2019 8:42 PM [facility] HOTEL 43 TRAUMAXR WRIST LIMITED RIGHT [...] | | | | | ONLY, -COMPUTER ([id number]), | | | | | | greeting card editor Katiana Bonilla | | | | | | (29) on 04/09/2014 | | | | | | 11:53:03 AM | | | | + + + + + + + + | Specimen | + + | | + + + + + | Narrative | Performed At | + + + | Historically converted procedure from [facility] environment | EXTERNAL LAB | + [...] | Patient | performed at [facility];[address] | | LAB | | | | [address];[place], [place] | | | | | | [address] | | | | + + + [...] | | | performed at [facility];[address] | | | | | | [address];[place], [place] | | | | | | [address] | | | | + + + [...] | | | performed at [facility];[address] | | LAB | | | | [address];[place] | | | | | | [address] | | | | + + + [...] | | | | | [facility];[address];[place] [address] | | | | + + + + + + | Hemoglobin | 13.4Comment: QA FLAGS | 13.2 - 17.0 | EXTERNAL | | | | AND/OR RANGES MODIFIED | g/dL | LAB | | | | BY DEMOGRAPHIC UPDATE ON | | | | | | 04/09 AT 0950Testing | | | | | | performed at [facility];[address] | | | | | | [address];[place] | | | | | | [address] | | | | + + + + + + | Hematocrit, | 39.0Comment: QA FLAGS | 39.0 - 50.0 % | EXTERNAL | | | POC | AND/OR RANGES MODIFIED | | LAB | | | | BY DEMOGRAPHIC UPDATE ON | | | | | | 04/09 AT 0950Testing | | | | | | performed at [facility];[address] | | | | | | [address];[place] | | | | | | [address] | | | | + + + + + + | MCV | 93.5Comment: Testing | 80.0 - 100.0 fl | EXTERNAL | | | | performed at [facility];[address] | | LAB | | | | [address];[place] | | | | | | [address] | | | | + + + + + + | MCH | 32.1Comment: Testing | 27.0 - 34.0 pg | EXTERNAL | | | | performed at [facility];[address] | | LAB | | | | [address];[place] | | | | | | [address] | | | | + + + + + + | MCHC | 34.3Comment: Testing | 32.0 - 35.5 | EXTERNAL | | | | performed at [facility];888 | g/dL | LAB | | | | [address];[place] | | | | | | [address] | | | | + + + + + + | RDW-CV | 44.6Comment: Testing | 37 - 53 fl | EXTERNAL | | | | performed at [facility];[address] | | LAB | | | | [address];[place] | | | | | | [address] | | | | + + + + + + | Platelet | 205Comment: Testing | 150 - 400 K/uL | EXTERNAL | | | Count | performed at [facility];[address] | | LAB | | | Plasma | [address];[place] | | | | | | [address] | | | | + + + + + + | MPV | 7.0Comment: Testing | fl | EXTERNAL | | | | performed at [facility];[address] | | LAB | | | | [address];[place] | | | | | | [address] | | | | + + + + + + | Differentia | AUTOMATEDComment: SLIDE | | EXTERNAL | | | l Type | SCANNED, AGREES WITH | | LAB | | | | AUTOMATED | | | | | | RESULTS.Testing | | | | | | performed at [facility];[address] | | | | | | [address];[place] | | | | | | [address] | | | | + + + + + + | % Segmented | 87.3Comment: Testing | % | EXTERNAL | | | | performed at [facility];[address] | | LAB | | | Neutrophils | [address];[place] | | | | | | [address] | | | | + + + + + + | % | 5.5Comment: Testing | % | EXTERNAL | | | Lymphocytes | performed at [facility];[address] | | LAB | | | | [address];[place] | | | | | | [address] | | | | + + + + + + | % Monocytes | 6.8Comment: Testing | % | EXTERNAL | | | | performed at [facility];[address] | | LAB | | | | [address];[place] | | | | | | [address] | | | | + + + + + + | % | 0.1Comment: Testing | % | EXTERNAL | | | Eosinophils | performed at [facility];[address] | | LAB | | | | [address];[place] | | | | | | [address] | | | | + + + + + + | % Basophils | 0.3Comment: Testing | % | EXTERNAL | | | | performed at [facility];[address] | | LAB | | | | [address];[place] | | | | | | [address] | | | | + + + + + + | Absolute | 17.0 (H)Comment: Testing | 1.9 - 7.4 K/uL | EXTERNAL | | | Segmented | performed at [facility];[address] | | LAB | | | Neutrophils | [address];[place] | | | | | | [address] | | | | + + + + + + | Absolute | 1.1Comment: Testing | 1.0 - 3.9 K/uL | EXTERNAL | | | Lymphocytes | performed at [facility];[address] | | LAB | | | | [address];[place] | | | | | | [address] | | | | + + + + + + | Absolute | 1.3 (H)Comment: Testing | 0 - 0.8 K/uL | EXTERNAL | | | Monocytes | performed at [facility];[address] | | LAB | | | | [address];[place] | | | | | | [address] | | | | + + + + + + | Absolute | 0.0Comment: Testing | 0 - 0.5 K/uL | EXTERNAL | | | Eosinophils | performed at [facility];[address] | | LAB | | | | [address];[place] | | | | | | [address] | | | | + + + + + + | Absolute | 0.1Comment: Testing | 0 - 0.1 K/uL | EXTERNAL | | | Basophils | performed at [facility];[address] | | LAB | | | | [address];[place] | | | | | | [address] | | | | + + + [...] | | | performed at [facility];[address] | | LAB | | | | [address];[place], [place] | | | | | | [address] | | | | + + + [...] | | | performed at [facility];[address] | | LAB | | | | [address];[place] | | | | | | [address] | | | | + + + [...] | | | performed at [facility];[address] | | | | | | [address];[place], [place] | | | | | | [address] | | | | + + + [...] | | | performed at [facility];888 | mmol/L | LAB | | | | [address];[place] | | | | | | [address] | | | | + + + + + + | K | 3.6Comment: Testing | 3.5 - 4.9 | EXTERNAL | | | | performed at [facility];888 | mmol/L | LAB | | | | [address];[place] | | | | | | [address] | | | | + + + + + + | Cl | 110 (H)Comment: Testing | 99 - 109 mmol/L | EXTERNAL | | | | performed at [facility];[address] | | LAB | | | | [address];[place] | | | | | | [address] | | | | + + + + + + | CO2 | 24Comment: Testing | 23 - 32 mmol/L | EXTERNAL | | | | performed at [facility];[address] | | LAB | | | | [address];[place] | | | | | | [address] | | | | + + + + + + | Anion Gap | 10Comment: Testing | 5 - 20 mmol/L | EXTERNAL | | | | performed at [facility];[address] | | LAB | | | | [address];[place] | | | | | | [address] | | | | + + + + + + | Glucose, | 116 (H)Comment: Testing | 65 - 99 mg/dL | EXTERNAL | | | Fasting | performed at [facility];[address] | | LAB | | | | [address];[place] | | | | | | [address] | | | | + + + + + + | BUN | 22Comment: Testing | 8 - 25 mg/dL | EXTERNAL | | | | performed at [facility];[address] | | LAB | | | | [address];[place] | | | | | | [address] | | | | + + + [...] | | | | | [facility];[address];[place] [address] | | | | + + + + + + | BUN/Creatin | 10Comment: Testing | | EXTERNAL | | | ine Ratio | performed at [facility];[address] | | LAB | | | | [address];[place] | | | | | | [address] | | | | + + + + + + | Calcium | 8.2 (L)Comment: Testing | 8.5 - 10.2 | EXTERNAL | | | | performed at [facility];888 | mg/dL | LAB | | | | [address];[place] | | | | | | [address] | | | | + + + + + + | Protein, | 6.7Comment: Testing | 6.3 - 8.2 g/dL | EXTERNAL | | | Total | performed at [facility];[address] | | LAB | | | | [address];[place] | | | | | | [address] | | | | + + + + + + | Albumin | 4.0Comment: QA FLAGS | 3.6 - 5.0 g/dL | EXTERNAL | | | | AND/OR RANGES MODIFIED | | LAB | | | | BY DEMOGRAPHIC UPDATE ON | | | | | | 04/09 AT 0950Testing | | | | | | performed at [facility];[address] | | | | | | [address];[place] | | | | | | [address] | | | | + + + + + + | Globulin | 2.7Comment: QA FLAGS | 1.3 - 4.9 g/dL | EXTERNAL | | | | AND/OR RANGES MODIFIED | | LAB | | | | BY DEMOGRAPHIC UPDATE ON | | | | | | 04/09 AT 0950Testing | | | | | | performed at [facility];[address] | | | | | | [address];[place] | | | | | | [address] | | | | + + + + + + | A/G Ratio | 1.5Comment: QA FLAGS | 1.0 - 2.4 | EXTERNAL | | | | AND/OR RANGES MODIFIED | | LAB | | | | BY DEMOGRAPHIC UPDATE ON | | | | | | 04/09 AT 0950Testing | | | | | | performed at [facility];[address] | | | | | | [address];[place] | | | | | | [address] | | | | + + + + + + | Bilirubin | 0.6Comment: Testing | 0.1 - 1.5 mg/dL | EXTERNAL | | | Total | performed at [facility];[address] | | LAB | | | | [address];[place] | | | | | | [address] | | | | + + + + + + | ALP, | 65Comment: Testing | 35 - 115 U/L | EXTERNAL | | | External | performed at [facility];[address] | | LAB | | | | [address];[place] | | | | | | [address] | | | | + + + + + + | AST | 33Comment: Testing | 10 - 45 U/L | EXTERNAL | | | | performed at [facility];[address] | | LAB | | | | [address];[place] | | | | | | [address] | | | | + + + + + + | ALT | 34Comment: Testing | 10 - 65 U/L | EXTERNAL | | | | performed at [facility];[address] | | LAB | | | | [address];[place] | | | | | | [id number] | | | | + + + [...] | | | | | [facility];[address] [place] [address] | | | | | | [facility];[place] [address] | | | | + + + [...]
--- OUTSIDE RECORDS SUMMARY | ~2019-12-22 | XMS | Encounter Summary ---
Demographics + + + | Address | [address] [place] [address] | | | [place] [address] | + + + | Home Phone [...] Providers + +------+ + | Care Customer Engineering Specialist Name | Role | Phone | [...] Bj, | | | | Transplant | End stage | MD Christine | MD Santos | | | | | renal | [place] | [address] [facility] | | | | | disease | [place]ara [place] | Davion Carballo | | | | | Illness, | Nephrology | [address] [place], | | | | | unspecified | [address] | [place] | | | | | | [address] | [address] | | | | | | [address] | Phone: | | | | | | [place], | [phone] | | | | | | [place] [address] | Fax: | | | | | | Phone: | [phone] | | | | | | [phone] | | | | | | | Fax: | | | | | | | [phone] | | +--------+--------+ + + + + Encounter Details +--------+---------+ + + + | Date | Type | Department | Care Team | Description | +--------+---------+ + + + | 07/02/ | Office | Kidney Transplant | Md3, [address] | ESRD (end stage | | 2016 | Visit | at [facility] [address] | [facility] | renal disease) ([facility]) | | | | [address] | [address] [place], [place] | (Primary Dx); | | | | Physician's | [id number] | Dialysis patient | | | | Pavilion, 3rd floor | | (HCC) | | | | [place], [place] | | | | | | [address] | | | | | | [phone] | | | +--------+---------+ + + + [...] Pressure | 140/85 | 07/02/2016 2:55 PM | | | | | PST | | + + + + + | Pulse | 67 | 07/02/2016 2:55 PM | | | | | PST | | + + + + + | Temperature | 36.4 C (97.6 F) | 07/02/2016 2:55 PM | | | | | PST | | + + + + + | Respiratory Rate | - | - | | + + + + + | Oxygen Saturation | 97% | 07/02/2016 2:55 PM | | | | | PST | | + + + + + | Inhaled Oxygen | - | - | | | Concentration | | | | + + + + + | Weight | 88.5 kg (195 lb) | 07/02/2016 2:55 PM | | | | | PST | | + + + + + | Height | 182.9 cm (6') | 07/02/2016 2:55 PM | | | | | PST | | + + + + + | Body Mass Index | 26.45 | 07/02/2016 2:55 PM | | | | | PST | | + + + + + documented in this encounter Progress Notes Santos Lorenzo MD - 07/02/2016 3:30 PM PSTTRANSPLANT MEDICINE ATTENDING I discussed kidney transplant with Mr. Oneill and his . He is not doing peritoneal dialy sis every night but will begin doing it. Santos Lorenzo MD documented in this e ncounter Plan of Treatment Not on filedocumented as of this encounter Visit Diagnoses + + | Diagnosis | + + | ESRD (end stage renal disease) (HCC) - Primary End stage renal disease | + + | Dialysis patient ([facility]) Renal dialysis status | + + documented in this encounter"
--- OUTSIDE RECORDS SUMMARY | ~2019-12-22 | XMS | Encounter Summary ---
Demographics + + + | Address | [address] | | | [place] [address] | + + + | Home Phone [...] [place], [place] | | | | | [address] | | + + + + + | Misty Boateng | ECON | [address] | | | | | [place] | | | | | [address] | | + + + + + Care Team Providers + +------+ + | Care Log Rafter Name | Role | Phone | + [...] + + | 01/12/ | Telephone | [facility] | Christine Martinez W, | Blood Pressure | | 2019 | | NEPHROLOGY [address] | MD [address] | | | | | [address] | [address] [facility] | | | | | [place], [place] | [place] [address] | | | | | [address] | [phone] | | | | | [phone] | | | +--------+ + + + [...] | | | | | [place] [address] | | | | | | [phone] | | | | | | | | +--------+---------+ + + + documented as of this encounter Visit Diagnoses Not on filedocumented in this encounter"
--- OUTSIDE RECORDS SUMMARY | ~2019-12-22 | XMS | Encounter Summary ---
Demographics + + + | Address | [address] [place] [address] | | | [place] [address] | + + + | Home Phone [...] Team Providers + +------+ + | Care Malariologist Name | Role | Phone | + [...] | | | | | Kait Barrios [place], | [place], [place] | | | | | [place] [address] | [address] | | | | | [phone] | | | +--------+ + + + [...]
--- OUTSIDE RECORDS SUMMARY | ~2019-12-22 | XMS | Encounter Summary ---
Demographics + + + | Address | [address] [place] [address] | | | [place] [address] | + + + | Home Phone | | + + + | Preferred Language | Unknown | + + + | Marital Status | | + + + | Alevism Affiliation | CHR | + + + [...] Team Providers + +------+ + | Care Bosom Presser Name | Role | Phone | + [...] | | Transplant Services | RN [address] [facility] | Tracking | | | | [address] | [address] | | | | | Kait Barrios [place], | [place], [place] | | | | | [place] [address] | [address] | | | | | [phone] | | | +--------+ + + + [...]
--- OUTSIDE RECORDS SUMMARY | ~2019-12-22 | XMS | Encounter Summary ---
Demographics + + + | Address | [address] [place] [address] | | | [place] [address] | + + + | Home Phone [...] Providers + +------+ + | Care Therapeutic Activities Services Worker Name | Role | Phone | [...] | | | | | Kait Barrios [place], | | | | | | [place] [address] | | | +--------+ + + + [...] + + | [facility] - | [address] | [place] [address] | | | IMMUNOGENETICS/TRANS | [address] | | | | [facility] | | | | + + + + + documented in this encounter Visit Diagnoses + + | Diagnosis | + + | End stage renal disease (HCC) End stage renal disease | + + documented in this encounter"
--- OUTSIDE RECORDS SUMMARY | ~2019-12-22 | XMS | Encounter Summary ---
Demographics + + + | Address | [address] | | | [place] [address] | + + + | Home Phone | | + + + | Preferred Language | Unknown | + + + | Marital Status | | + + + | Oriental Orthodox Affiliation | 1041 | + + + | Race | Unknown | + + + | Ethnic Group | Unknown | + + + Author + + + | Author | [facility] | | | and [place] | + + + | Organization | [facility] | | | and [place] | + + + | Address | Unknown | + + + | Phone | Unavailable | + + + Support + + + + + | Name | Relationship | Address | Phone | + + + + + | Ryan Oneill | ECON | [place], [place] | | | | | [address] | | + + + + + | Misty Boateng | ECON | [address] | | | | | [place], [place] | | | | | [address] | | + + + + + Care Team Providers + +------+ + | Care Voip Technician Name | Role | Phone | + +------+ + PCP | Unavailable | + +------+ + Encounter Details +--------+ + + + + | Date | Type | Department | Care Team | Description | +--------+ + + + + | 09/19/ | Hospital | [facility] | Conversion | | | 2016 | Encounter | CENTER [facility] | Transaction, | | | | | CLINIC [address] | Provider Unknown | | | | | [address] [place], [place] | | | | | | [address] | (Fax) | | | | | [phone] | | | +--------+ + + + [...] | | | | | [place] [address] | | | | | | [phone] | | | | | | | | +--------+---------+ + + + documented as of this encounter Visit Diagnoses Not on filedocumented in this encounter"
--- OUTSIDE RECORDS SUMMARY | ~2019-12-22 | XMS | Encounter Summary ---
Demographics + + + | Address | [address] | | | [place] [address] | + + + | Home Phone | | + + + | Preferred Language | Unknown | + + + | Marital Status | | + + + | Lutheran Affiliation | 1041 | + + + | Race | Unknown | + + + | Ethnic Group | Unknown | + + + Author + + + | Author | [facility] | | | and [place] | + + + | Organization | [facility] | | | and [place] | + + + | Address | Unknown | + + + | Phone | Unavailable | + + + Support + + + + + | Name | Relationship | Address | Phone | + + + + + | Ryan Oneill | ECON | [place], [place] | | | | | [address] | | + + + + + | Misty Boateng | ECON | [address] | | | | | [place] | | | | | [address] | | + + + + + Care Team Providers + +------+ + | Care Computer Programming Manager Name | Role | Phone | [...] | | | nephritis | [address] | | | | | Procedures | [place] | [address] [place] | | | | | [place] OFFICE | [address] | [place] | | | | | OUTPATIENT | [place], | [address] Phone: | | | | | VISIT 25 | [place] | [phone] | | | | | MINUTES | [address] | Fax: | | | | | | Phone: | [phone] | | | | | | [phone] | | | | | | | Fax: | | | | | | | [phone] | | +--------+--------+ + + + + Encounter Details +--------+ + + + + | Date | Type | Department | Care Team | Description | +--------+ + + + + | 12/30/ | Off-Site | [facility] | Peace Drake | End stage renal | | 2016 | Visit | NEPHROLOGY [address] | M, DO [address] | disease (HCC) | | | | [address] | [place] | (Primary Dx) | | | | [place], [place] | [place], [place] | | | | | [address] | [address] | | | | | [phone] | | | +--------+ + + + [...] + + + | Blood Pressure | 113/81 | 12/31/2015 3:48 PM | | | | | PDT | | + + + + + | Pulse | - | - | | + + + + + | Temperature | 36 C (96.8 F) | 12/31/2015 3:48 PM | | | | | PDT [...] + + + + | Weight | 89.4 kg (197 lb 1.5 | 12/31/2015 3:48 PM | | | | oz) | PDT | | + + + + + | Height | - | - | | + + + + + | Body Mass Index | 26.73 | 11/08/2015 10:00 AM | | | | | PDT | | + + + + + documented in this encounter Progress Notes Peace Drake DO - 12/31/2015 12:17 PM PDT Subjective: [facility] CLINIC Patient ID: Seema Oneill is a 45 y.o. male. 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 He states that frequently he works up to "80 hours per week." He does intermittently miss doing his txs when he is on an active crime scene investigation . He also has HTN, hypothyroidism, anemia 2' to CKD, Crohn's which is in remission on azathio rm/Humira.He states that is very interested in being able to gain a renal allograft in t he future. He denies edema, anorexia, nausea or hiccups. His formal adequacy has been stab le on 3 exchanges per day. MEDS: Outpatient Prescriptions Marked as Taking for the 12/31/15 encounter (Off-Site Visit) with Fern Drake, DO [...] exchange /day. Review of Systems Objective: BP 113/81 mmHg | Temp(Src) 36 C (96.8 F) | Wt 89.4 kg (197 lb 1.5 oz) Physical Exam Heart: Regular rate and rhythm with no S3, S4, murmur or rub. Lungs: CTA bilaterally. No rales or wheezes. Abdomen: Soft, nontender, normoactive bowel sounds, no guarding, exit site at RLQ is clear and dry. Extremities: no clubbing, cyanosis, edema. (+) old ORIF, multiple with well healed incision s at right hand and wrist. LAB: BUN 32, Cr 3.5, K+ 5.0, HCO3 23, Ca++ 9.1, PO4 2.8, last PTH 163, Alb 4.5, Hb 12.5, TSat. = 31 %, Ferritin 270, weeklyKT/V = 8.93. Assessment: 1. ESRD--he appears to have a large amount of residual renal fucntion. His adequacy appea rs stable on his current CAPD volume. 2. Hypertension--stable on current regimen. 3. Anemia 2' to CKD-- Will need to hold the EPO until the Hb is < 11.0 g/dl, while recheck ing the Hb in 2 weeks. His iron stores appear improved after his recent IV iron infusions. 4. CKD [place] Bone Disease--His phosphorus control has been excellent recently. He is ve ry compliant with his diet. No need for Calcitriol at this point. 5. Nutrition--his appetite and serum Albumin are very good on his current Rx. 6. Transplanation-- I think that his excellent social support, dietary and medical complia nce would make him an excellent candidate. 7. Crohn's --appears to be in remission on Humira, by History. Plan: 1. Will continue his current CCPD volume. 2. Will recheck his Hb in 2 weeks and adjust his EPO per the [facility] anemia algorithm 3. 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 I think he would overall make an excellent candidate for a renal allograft. Incidentally, based on today's Scr , his eGFR by the MDRD equation would be 19 ml/min, and very likely w/o CCPD he would fall back to 12-14 ml/min, off of CCPD, with likely deterioration in his nutr ition and CKD-MBD parameters. 4. Will recheck him in one month with lab. : Havre Polo Lorenzo MD, Renal Txp Clinic, [facility] documented in thi s encounter [...] | | | | | [place] [address] | | | | | | [phone] | | | | | | | | +--------+---------+ + + + documented as of this encounter Visit Diagnoses + + | Diagnosis | + + | End stage renal disease (HCC) - Primary End stage renal disease | + + documented in this encounter
--- OUTSIDE RECORDS SUMMARY | ~2019-12-22 | XMS | Encounter Summary ---
Demographics + + + | Address | [address] [place] [address] | | | [place] [address] | + + + | Home Phone [...] Team Providers + +------+ + | Care Optical Instruments Supervisor Name | Role | Phone | [...] 04-13-19) | | | | Kait Bar[place], | [place], [place] | | | | | [place] [address] | [address] | | | | | [phone] | [phone] | | | | | | | [...] + | [facility] | | | [phone] | + +---------+ + + documented in this encounter Visit Diagnoses Not on filedocumented in this encounter"
--- OUTSIDE RECORDS SUMMARY | ~2019-12-22 | XMS | Encounter Summary ---
Demographics + + + | Address | [address] [place] [address] | | | [place] [address] | + + + | Home Phone | | + + + | Preferred Language | Unknown | + + + | Marital Status | | + + + | Yazidism Affiliation | CHR | + + + | Race | White | + + + | Ethnic Group | Not or | + + + Author + + + | Author | [facility] | + + + | Organization | [facility] | + + + | Address | Unknown | + + + | Phone | Unavailable | + + + Support + + +---------+ + | Name | Relationship | Address | Phone | + + +---------+ + | Misty Oneill | ECON | Unknown | | + + +---------+ + Care Team Providers + +------+ + | Care Dormitory Maid Name | Role | Phone | + [...] y | Parotiditis | Epic Dept | [address] | | | | | recurrent | | [address] | | | | | left | | Kait Barrios | | | | | parotiditis | | [place], [place] | | | | | Procedures | | [address] | | | | | [place] | | Phone: | | | | | PATIENT | | [phone] | | | | | LEVEL III | | Fax: | | | | | | | [phone] | + +--------+ + + + + [...] | Surgery Services at | Kait Barrios [place], | | | | | [facility] [address] | [place] [address] | | | | | Ave Mailcode: | [phone] | | | | | [facility] | | | | | | and Healing, | | | | | | Building [address] | | | | | | [place], [place] | | | | | | [address] | | | | | | [phone] | | | +--------+ + + + [...] via Telemedicine. Patient location is home in [place], [place]. My location is [facility]. Patient was located in the [facility] at the time of the visit. Telepresenter (relative and/or senior etl developer) was not used during the visit. Patient [...] left sided parotid masses. He lives in [place], [place]. In August 2019 his left parotid [...] parotitis. Mr. Oneill has been taking Humira usp for Crohn's disease. He unfortunately has renal i nsufficiency due to interstitial nephritis without a clear etiology. He has been on peritone al dialysis in the past, but currently does not require dialysis. He is on the renal transpl ant waiting list suspended--because his GFR is sufficient at present. He was admitted recently to another hospital and treated likely with Zosyn, then Ciprofloxa perfecto for recurrent parotitis as an inpatient. Dr. [...] No steroids recently taken. 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 Review of Systems: 14 systems reviewed and [...] liquid nitrogen by Dr. Darnell Yee in [place] AIN (acute interstitial nephritis) 2008 Anemia Ankylosing [...] kidney disease) stage 4, GFR 15-29 ml/min ([facility]) MDRD6 19.28 on 06/21/2015 Crohn's disease of colon ([facility]) 2008 sparing rectum and sigmoid colon; was [...] and foot process effacement Kidney biopsy 06/11/2015 [facility] pathology report Wrist fracture surgery Right 04/08/2014 [...] Breast mass excision Right 01/26/2012 Dr. Daniel, [place] Circumcision Removal of peritoneal dialysis catheter 11/28/2016 [...] for a short time. Tim Skinner MD Weekend Caregiver Head and Neck Surgical Oncology Microvascular Reconstructive Surgery [facility] The patient's encounter was accomplished via telemedicine today due to COVID-19 precautiona ry measures to limit the patient's unnecessary exposure. Exam is related to inspection and a ssessment and may be limited by telehealth monitor. documented in this centervillet er Plan of Treatment Not on filedocumented as of this encounter Visit Diagnoses + + | Diagnosis | + + | Left Parotid mass - Primary Swelling, mass, or lump in head and neck | + + documented in this encounter"
--- OUTSIDE RECORDS SUMMARY | ~2019-12-22 | XMS | Encounter Summary ---
Demographics + + + | Address | [address] [place] [address] | | | [place] [address] | + + + | Home Phone [...] Team Providers + +------+ + | Care Almond Blancher Hand Name | Role | Phone | [...] CT) | | | | Kait Barrios [place], | [place], [place] | | | | | [place] [address] | [address] | | | | | [phone] | | | +--------+ + + + [...]
--- OUTSIDE RECORDS SUMMARY | ~2019-12-22 | XMS | Encounter Summary ---
Demographics + + + | Address | [address] | | | [place] [address] | + + + | Home Phone [...] [place], [place] | | | | | [address] | | + + + + + | Misty Boateng | ECON | [address] | | | | | [place], [place] | | | | | [address] | | + + + + + Care Team Providers + +------+ + | Care Regional Truck Driver Name | Role | Phone | + +------+ + PCP | Unavailable | + +------+ + Encounter Details +--------+ + + + + | Date | Type | Department | Care Team | Description | +--------+ + + + + | 11/08/ | Orders Only | [facility] | Pan Jhaveri MD | Crohn's disease | | 2016 | | MED CTR XRAY [address] | [address] | without | | | | [place] | [place], [place] | complication, | | | | [place] [address] | [address] | unspecified | | | | [phone] | [phone] | gastrointestinal | | | | | [...] | Visit | | MD Monica Tirado [facility] | | | | | | [address] | | | | | | [place] [address] | | | | | | [phone] | | | | | | | | +--------+---------+ + + + documented as of this encounter Visit Diagnoses + + | Diagnosis | + + | Crohn's disease without complication, unspecified gastrointestinal tract location | | (HCC) | + + documented in this encounter"
--- OUTSIDE RECORDS SUMMARY | ~2019-12-22 | XMS | Encounter Summary ---
Demographics + + + | Address | [address] | | | [place] [address] | + + + | Home Phone [...] + | Author | [facility] | | | and [place] | + + + | Organization | [facility] | | | and [place] | + + + | Address | Unknown | + + + | Phone | Unavailable | + + + Support + + + + + | Name | Relationship | Address | Phone | + + + + + | Ryan Oneill | ECON | [place], [place] | | | | | [address] | | + + + + + | Misty Boateng | ECON | [address] | | | | | [place] | | | | | [address] | | + + + + + Care Team Providers + +------+ + | Care Supervisor Dimension Warehouse Name | Role | Phone | + [...] | renal | MD Bj | [address] | | | | | disease | [address] | [address] | | | | | ([facility]) | [place] | [address] [place] | | | | | Procedures | [address] | [place] | | | | | [place] OFFICE | [place], | [address] Phone: | | | | | OUTPATIENT | [place] | [phone] | | | | | VISIT 25 | [address] | Fax: | | | | | MINUTES | Phone: | [phone] | | | | | | [phone] | | | | | | | Fax: | | | | | | | [phone] | | +--------+--------+ + + + + [...] | | [address] | [place] | (Primary Dx) | | | | [place], [place] | [place], [place] | | | | | [address] | [address] | | | | | [phone] | | | +--------+ + + + [...] on CCPD. 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 He is very pleasant, but adamant [...] to CKD, Crohn's which has bee in [facility] on azathioprine/Humira. MEDS: Outpatient Prescriptions Marked as [...] 31 %, Ferritin 204, weeklyKT/V = 2.36, inupiat Ccr = 30 ml/min. Assessment: 1. ESRD-- [...] one month at the [facility] at [facility] with Dr. Martinez with a CBC, CMP, [...] procedures until we can assess what his inupiat Ccr is in 30 days, to avoid that clouding the issue. He appears to agree. : [facility] Bj Lorenzo MD, Renal Txp Clinic, [facility] Travis Randall MD, documented in th is [...] | | | | | | [place] [address] | | | | | | [phone] | | | | | | | [...]
--- OUTSIDE RECORDS SUMMARY | ~2019-12-22 | XMS | Encounter Summary ---
Demographics + + + | Address | [address] | | | [place] [address] | + + + | Home Phone [...] [place], [place] | | | | | [address] | | + + + + + | Misty Boateng | ECON | [address] | | | | | [place] | | | | | [address] | | + + + + + Care Team Providers + +------+ + | Care Asset Protection Specialist Name | Role | Phone | [...] | | | | | | | MO | | | | | | | COLONOSCOPY | | | | | | | FLX DX | | | | | | | W/COLLJ SPEC | | | | | | | WHEN PFRMD | | | | | | | MO | | | | | | | COLONOSCOPY | | | | | | | W/BIOPSY | | | | | | | SINGLE/MULTI | | | | | | | PLE MO | | | | | | | COLSC FLX | | | | | | | W/RMVL OF | | | | | | | TUMOR POLYP | | | | | | | LESION SNARE | | | | | | | TQ MO | | | | | | | [...] + + | 11/10/ | Hospital | [facility] | Pan Jhaveri MD | | | 2019 | Encounter | MED CTR MP INTRA OP | [address] [facility] | | | | | [address] | [place], [place] | | | | | [place] | [address] | | | | | [address] | [phone] | | | | | [phone] | | | +--------+ + + + [...] | | | | | [place] [address] | | | | | | [phone] | | | | | | | [...] chronic and | | | microscopic colitis. [facility]:cab:C2NR GROSS DESCRIPTION: A. The | | | [...] | | | components were performed by [facility], [address] [place] [address] | | | [place] [address] (Water Plant Maintenance Mechanic: Paulie Krishnamurthy, | | | D.OLos; [facility]#: [id number]). Diagnostician: Honey Zavala MD | | | Pathologist Electronically Signed 11/11/2018 | | + + + + +---------+ + + | Performing | Address | City/State/Zipcode | Phone Number | | Organization | | | | + +---------+ + + | [facility] | | | | | [facility] [...]
--- OUTSIDE RECORDS SUMMARY | ~2019-12-22 | XMS | Encounter Summary ---
Demographics + + + | Address | [address] | | | [place] [address] | + + + | Home Phone [...] [place], [place] | | | | | [address] | | + + + + + | Misty Boateng | ECON | [address] | | | | | [place] | | | | | [address] | | + + + + + Care Team Providers + +------+ + | Care Society Reporter Name | Role | Phone | [...] | NEPHROLOGY [address] | disease) stage 4, | | | | [address] | [address] [place] | GFR 15-29 ml/min | | | | [place] | [place] [address] | ([facility]) (Primary Dx) | | | | [address] | [phone] | | | | | [phone] | | | +--------+ + + + [...] PSTLabs for upcoming nephrology appointment sent to: [facility] documented in t his encounter Plan of [...] | | | | | [place] [address] | | | | | | [phone] | | | | | | | | +--------+---------+ + + + documented as of this encounter Visit Diagnoses + + | Diagnosis | + + | CKD (chronic kidney disease) stage 4, GFR 15-29 ml/min ([facility]) - Primary Chronic kidney | | disease, Stage IV (severe) | + + documented in this encounter"
--- OUTSIDE RECORDS SUMMARY | ~2019-12-22 | XMS | Encounter Summary ---
Demographics + + + | Address | [address] | | | [place] [address] | + + + | Home Phone [...] + | Author | [facility] | | | and [place] | + + + | Organization | [facility] | | | and [place] | + + + | Address | Unknown | + + + | Phone | Unavailable | + + + Support + + + + + | Name | Relationship | Address | Phone | + + + + + | Ryan Oneill | ECON | [place], [place] | | | | | [address] | | + + + + + | Misty Boateng | ECON | [address] | | | | | [place], [place] | | | | | [address] | | + + + + + Care Team Providers + +------+ + | Care Direct Support Professional Name | Role | Phone | + +------+ + PCP | Unavailable | + +------+ + Encounter Details +--------+ + + + + | Date | Type | Department | Care Team | Description | +--------+ + + + + | 11/11/ | Documentati | [facility] | Peace Drake | | | 2016 | on | NEPHROLOGY [address] | M, DO [address] | | | | | [address] | [place] | | | | | [place], [place] | [place], [place] | | | | | [address] | [address] | | | | | [phone] | | | +--------+ + + + [...] MD, Pan Jhaveri MD, Travis Randall MD, [facility] on . trobrettl, Peace [...] is seen on CAPD tr at the [facility]. He also has HTN, hy pothyroidism, anemia [...] on one month , with lab. : [facility] Bj Randall MD, documented [...] | | | | | | [place] [address] | | | | | | [phone] | | | | | | | [...]
--- OUTSIDE RECORDS SUMMARY | ~2019-12-22 | XMS | Encounter Summary ---
Demographics + + + | Address | [address] [place] [address] | | | [place] [address] | + + + | Home Phone [...] Team Providers + +------+ + | Care Aircraft General Repair Mechanic Name | Role | Phone | [...] | | | | | Physician's | [place], [place] | | | | | Michelle, 3rd floor | [address] | | | | | [place], [place] | [phone] | | | | | [address] | | | | | | [phone] | | | +--------+ + + + [...]
--- OUTSIDE RECORDS SUMMARY | ~2019-12-22 | XMS | Encounter Summary ---
Demographics + + + | Address | [address] | | | [place] [address] | + + + | Home Phone [...] [place], [place] | | | | | [address] | | + + + + + | Misty Boateng | ECON | [address] | | | | | [place] | | | | | [address] | | + + + + + Care Team Providers + +------+ + | Care Particleboard Factory Worker Name | Role | Phone | [...] | | | nephritis | [address] | [place] [address] | | | | | Procedures | [place] | [address] [place] | | | | | [place] OFFICE | [address] | [facility] [place] | | | | | OUTPATIENT | [place], | [address] Phone: | | | | | VISIT 25 | [place] | [phone] | | | | | MINUTES | [address] | Fax: | | | | | | Phone: | [phone] | | | | | | [phone] | | | | | | | Fax: | | | | | | | [phone] | | +--------+--------+ + + + + [...] | | [address] | [place] | (Primary Dx) | | | | [place], [place] | [place], [place] | | | | | [address] | [address] | | | | | [phone] | | | +--------+ + + + [...] t CCPD. 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 He recently attended a guided fishing trip to benefit Law Enforcement, and states that he b ecame acquainted with a fellow Officer from from [place], [place], who allegedly has agreed to give his a kidney. He also has HTN, hypothyroidism, anemia secondary to CKD, Crohn's which has bee in [facility] on azathioprine/Humira. He does complain of fatigue, [...] career. He is refusing to take Medical assisted, as he deeply enjoys his work. 2. Will review his lab, Hb, adequacy, PTH and make adjustments when available. 3. Otherwise, will plan on seeing him back in [facility] , in one month. 4. He does accurately describe, as above, a fellow Officer from [place], [place] who has verbal ly offered to be an altruistic donor.* : Goodrich Polo Lorenzo MD, [facility] documented in thi s encounter Plan of Treatment +--------+---------+ + + + | Date | Type | Specialty | Care Team | Description | +--------+---------+ + + + | 03/20/ | Office | Nephrology | Christine Martinez, | | | 2019 | Visit | | MD Monica Manzanares | | | | | | [address] [place] | | | | | | [place] [address] | | | | | | [phone] | | | | | | | | +--------+---------+ + + + documented as of this encounter Visit Diagnoses + + | Diagnosis | + + | End stage renal disease (HCC) - Primary End stage renal disease | + + documented in this encounter"
--- OUTSIDE RECORDS SUMMARY | ~2019-12-22 | XMS | Encounter Summary ---
Demographics + + + | Address | [address] | | | [place] [address] | + + + | Home Phone [...] Author | [facility] | | | and [place] | + [...] [place], [place] | | | | | [address] | | + + + + + | Misty Boateng | ECON | [address] | | | | | [place], [place] | | | | | [address] | | + + + + + Care Team Providers + +------+ + | Care Service Tech/Welder Name | Role | Phone | + +------+ + PCP | Unavailable | + +------+ + Encounter Details +--------+ + + + + | Date | Type | Department | Care Team | Description | +--------+ + + + + | 07/30/ | Orders Only | [facility] [place] | Christine Martinez W, | Chronic renal | | 2016 | | NEPHROLOGY [address] | [address] | disease, stage IV | | | | [address] | [address] [place] | ([facility]) (Primary Dx) | | | | [place], [place] | [place] [address] | | | | | [address] | [phone] | | | | | [phone] | | | +--------+ + + + [...] encounter Progress Notes Jennifer Noble RN - 07/30/2015 9:51 AM PSTLabs for appointment on 08/07/15 sent to Lanie Reece. document ed in this encounter Plan of Treatment +--------+---------+ + + + | Date | Type | Specialty | Care Team | Description | +--------+---------+ + + + | 03/20/ | Office | Nephrology | Christine Martinez, | | | 2020 | Visit | | MD Monica Tirado [place] | | | | | | [address] [place] | | | | | | [place] [address] | | | | | | [phone] | | | | | | | | +--------+---------+ + + + documented as of this encounter Visit Diagnoses + + | Diagnosis | + + | Chronic renal disease, stage IV (HCC) - Primary Chronic kidney disease, Stage IV | | (severe) | + + documented in this encounter"
--- OUTSIDE RECORDS SUMMARY | ~2019-12-22 | XMS | Encounter Summary ---
Demographics + + + | Address | [address] | | | [place] [address] | + + + | Home Phone [...] [place], [place] | | | | | [address] | | + + + + + | Misty Botaeng | ECON | [address] | | | | | [place], [place] | | | | | [address] | | + + + + + Care Team Providers + +------+ + | Care Speech Scientist Name | Role | Phone | + +------+ + PCP | Unavailable | + +------+ + Encounter Details +--------+ + + + + | Date | Type | Department | Care Team | Description | +--------+ + + + + | 06/05/ | Abstract | [facility] [place] | Christine Martinez W, | | | 2014 | | NEPHROLOGY [address] | [address] | | | | | [address] | [address] [place] | | | | | [place], [place] | [place] [address] | | | | | [address] | [phone] | | | | | [phone] | | | +--------+ + + + [...] | | | | | [place] [address] | | | | | | [phone] | | | | | | | | +--------+---------+ + + + documented as of this encounter Procedures + +--------+ + + + | Procedure Name | Priori | Date/Time | Associated Diagnosis | Comments | | | ty | | | | + +--------+ + + + | EXTERNAL LAB: ANIVAL | Routin | 06/01/2015 | | Results for this | | | e | | | procedure are in the | | | | | | results section. | + +--------+ + + + | EXTERNAL LAB: | Routin | 06/01/2015 | | Results for this | | GLUCOSE | e | | | procedure are in the | | | | | | results section. | + +--------+ + + + | EXTERNAL LAB: | Routin | 06/01/2015 | | Results for this | | CALCIUM | e | | | procedure are in the | | | | | | results section. | + +--------+ + + + | EXTERNAL LAB: CARBON | Routin | 06/01/2015 | | Results for this | | DIOXIDE | e | | | procedure are in the | | | | | | results section. | + +--------+ + + + | EXTERNAL LAB: | Routin | 06/01/2015 | | Results for this | | CHLORIDE | e | | | procedure are in the | | | | | | results section. | + +--------+ + + + | EXTERNAL LAB: | Routin | 06/01/2015 | | Results for this | | POTASSIUM | e | | | procedure are in the | | | | | | results section. | + +--------+ + + + | EXTERNAL LAB: SODIUM | Routin | 06/01/2015 | | Results for this | | | e | | | procedure are in the | | | | | | results section. | + +--------+ + + + | EXTERNAL LAB: EGFR | Routin | 06/01/2015 | | Results for this | | | e | | | procedure are in the | | | | | | results section. | + +--------+ + + + | EXTERNAL LAB: | Routin | 06/01/2015 | | Results for this | | CREATININE | e | | | procedure are in the | | | | | | results section. | + +--------+ + + + | SODIUM, URINE | Routin | 06/01/2015 | | Results for this | | | e | | | procedure are in the | | | | | | results section. | + +--------+ + + + documented in this encounter Results Sodium, Urine (06/01/2015) + + + + + + | Component | Value | Ref Range | Performed | Pathologist | | | | | At | Signature | + + + + + + | Sodium, | 96 | | EXTERNAL | | | Urine | | | LAB | | + + + + + + | Creatinine, | 145 | mg/dL | EXTERNAL | | | Urine | | | LAB | | + + + + + + | Eosinophils | None seen | None seen | EXTERNAL | | | , Urine | | | LAB | | [...] + +---------+ + + External Lab: BUN (06/01/2015) + +--------+ + + + | Component | Value | Ref Range | Performed | Pathologist | | | | | At | Signature | + +--------+ + + + | BUN, | 38 (A) | 6 - 23 | EXTERNAL [...] + +---------+ + + External Lab: Glucose (06/01/2015) + +-------+ + + + | Component [...] + +---------+ + + External Lab: Calcium (06/01/2015) + +-------+ + + + | Component [...] +---------+ + + External Lab: Carbon Dioxide (06/01/2015) + +-------+ + + + | Component [...] + +---------+ + + External Lab: Chloride (06/01/2015) + +-------+ + + + | Component [...] + +---------+ + + External Lab: Potassium (06/01/2015) + +-------+ + + + | Component [...] + +---------+ + + External Lab: Sodium (06/01/2015) + +-------+ + + + | Component | Value | Ref Range | Performed | Pathologist | | | | | At | Signature | + +-------+ + + + | Sodium, | 135 | 132 - 143 | EXTERNAL | [...] + +---------+ + + External Lab: eGFR (06/01/2015) + +-------+ + + + | Component [...] + +---------+ + + External Lab: Creatinine (06/01/2015) + + + + + + | Component | Value | Ref Range | Performed | Pathologist | | | | | At | Signature | + + + + + + | Creatinine, | 3.77 (A) | 0.6 - 1.35 | EXTERNAL [...]
--- OUTSIDE RECORDS SUMMARY | ~2019-12-22 | XMS | Encounter Summary ---
Demographics + + + | Address | [address] | | | [place] [address] | + + + | Home Phone [...] | Author | [facility] | | | and [place] | + + + | Organization | [facility] | | | and [place] | + + + | Address | Unknown | + + + | Phone | Unavailable | + + + Support + + + + + | Name | Relationship | Address | Phone | + + + + + | Ryan Oneill | ECON | [place], [place] | | | | | [address] | | + + + + + | Misty Boateng | ECON | [address] | | | | | [place], [place] | | | | | [address] | | + + + + + Care Team Providers + +------+ + | Care Coil Assembler Name | Role | Phone | [...] | NEPHROLOGY [address] | [address] | disease, stage IV | | | | [address] | [address] [place] | (severe) (HCC) | | | | [place], [place] | [place] [address] | (Primary Dx) | | | | [address] | [phone] | | | | | [phone] | | | +--------+ + + + [...] | | | | | [place] [address] | | | | | | [phone] | | | | | | | | +--------+---------+ + + + documented as of this encounter Visit Diagnoses + + | Diagnosis | + + | Chronic kidney disease, stage IV (severe) (HCC) - Primary Chronic kidney disease, | | Stage IV (severe) | + + documented in this encounter"
--- OUTSIDE RECORDS SUMMARY | ~2019-12-22 | XMS | Encounter Summary ---
Demographics + + + | Address | [address] [place] [address] | | | [place] [address] | + + + | Home Phone [...] Team Providers + +------+ + | Care Mathematical Physicist Name | Role | Phone | + [...] Rd | | | | | | [place], [place] | | | | | | [address] | | | +--------+ + + + [...] | [facility] | | | PATHOLOGY | [facility] | | DEPARTMENT | | | | Final Pathologic | | OF | | | | Diagnosis:Rincon kidney | | PATHOLOGY | | | [...] chains. | | | | | | RESULTS:[place]: | | | | | | Scattered [...] DEPARTMENT OF | [address] | [place] [address] | | | PATHOLOGY | DANO AMADO | | | + + + + + documented in this encounter Visit Diagnoses Not on filedocumented in this encounter
--- OUTSIDE RECORDS SUMMARY | ~2019-12-22 | XMS | Encounter Summary ---
Demographics + + + | Address | [address] | | | [place] [address] | + + + | Home Phone [...] [place], [place] | | | | | [address] | | + + + + + | Misty Boateng | ECON | [address] | | | | | [place], [place] | | | | | [address] | | + + + + + Care Team Providers + +------+ + | Care Gas Distribution And Emergency Clerk Name | Role | Phone | [...] | 01/24/ | Documentati | [facility] | Christine Martinez W, | Dialysis | | 2016 | on | NEPHROLOGY [address] | MD [address] | (Asymptomatic) | | | | [address] | [address] [place] | | | | | [place], [place] | [facility] [address] | | | | | [address] | [phone] | | | | | [phone] | | | +--------+ + + + [...] ce note e-faxed to Hai Holman MD, [facility] on 01/29/16.E lectronically signed by [...] BIOPSY; Surgeon: Jose Juan Yanes MD; Location: [facility] Egd and colonoscopy N/A 11/08/2015 Procedure: EGD / COLONOSCOPY; Surgeon: Pan Jhaveri MD; Location: [facility] History Social History Marital Status: Spouse Name: N/A Number of Children: N/A Years of Education: N/A 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 Secondary hyperparathyroidism (HCC) N25.81 588.81 Press Operator Apprentice counseled pt regarding adequ ate nutrition. 5. Crohn's disease with complication, unspecified gastrointestinal tract location (HCC) K50 .919 555.9 On Humira and azathioprine. 6. Awaiting transplantation of kidney Z76.82 V49.83 Referred to [facility]. -Pending neurology consult and notes from . -Pt has appt with neurology on 01/30/16. -Will d/w Dr. Jhaveri () about sending notes to [facility]. Cc: Hai Mendiolaparminder [place] documented in this encounter Plan of Treatment +--------+---------+ + + + | Date | Type | Specialty | Care Team | Description | +--------+---------+ + + + | 03/20/ | Office | Nephrology | Christine Martinez, | | | 2019 | Visit | | MD Monica Manzanares | | | | | | [address] | | | | | | [place] [address] | | | | | | [phone] | | | | | | | [...]
--- OUTSIDE RECORDS SUMMARY | ~2019-12-22 | XMS | Encounter Summary ---
Demographics + + + | Address | [address] | | | [place] [address] | + + + | Home Phone [...] [place], [place] | | | | | [address] | | + + + + + | Misty Boateng | ECON | [address] | | | | | [place], [place] | | | | | [address] | | + + + + + Care Team Providers + +------+ + | Care Community Service Specialist Name | Role | Phone | [...] | NEPHROLOGY [address] | [address] | | | | | [address] | [address] [place] | | | | | [place], [place] | [place] [address] | | | | | [address] | [phone] | | | | | [phone] | | | +--------+ + + + [...] | | | | | [place] [address] | | | | | | [phone] | | | | | | | [...]
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
--- OUTSIDE RECORDS SUMMARY | ~2019-12-22 | XMS | Encounter Summary ---
Demographics + + + | Address | [address] | | | [place] [address] | + + + | Home Phone [...] [place], [place] | | | | | [address] | | + + + + + | Misty Boateng | ECON | [address] | | | | | [place] | | | | | [address] | | + + + + + Care Team Providers + +------+ + | Care Professor Of Environmental Science Name | Role | Phone | + [...] NEPHROLOGY [address] | MD [address] | | | | | [address] | [address] [facility] | | | | | [place], [place] | [place] [address] | | | | | [address] | [phone] | | | | | [phone] | | | +--------+--------+ + + + [...] | | | | | [place] [address] | | | | | | [phone] | | | | | | | | +--------+---------+ + + + documented as of this encounter Visit Diagnoses Not on filedocumented in this encounter"
--- OUTSIDE RECORDS SUMMARY | ~2019-12-22 | XMS | Encounter Summary ---
Demographics + + + | Address | [address] | | | [place] [address] | + + + | Home Phone [...] [place], [place] | | | | | [address] | | + + + + + | Misty Boateng | ECON | [address] | | | | | [place], [place] | | | | | [address] | | + + + + + Care Team Providers + +------+ + | Care Residential Green Building Designer Name | Role | Phone | [...] | +--------+ + + + + | 08/08/ | Documentati | [facility] | Christine Martinez W, | Dialysis | | 2017 | on | NEPHROLOGY [address] | MD [address] | (Asymptomatic) | | | | [address] | [address] [place] | | | | | [place], [place] | [facility] [place] [address] | | | | | [address] | [phone] | | | | | [phone] | | | +--------+ + + + [...] this encounter Progress Notes Mandy Negrete - 08/11/2016 9:18 AM PSTComprehensive peritoneal dialysis progress note e -faxed to Hai Holman MD, [facility] [place] on 08/11/16. Christine Manzo MD - 0 08/08/2016 2:51 PM PST Comprehensive Peritoneal Dialysis Note Date of visit: 08/08/2016 HPI: Seema Oneill is a 45 y.o. 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 Pt had an episode of a sharp pain along the tunnel, positional, x hours. No drainage or re dness of exit site. Pt is using all 1.5%, average UF 150 - 200 mL. Pt is doing better with current prescriptio n. Pt performed dialysis 15 out of the last 19 days. Pt is tired due to long work hours. 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 EXAM: T 97.8 F, HR 87, BP 130/78, wt 91.4 kg Constitutional: Appears well-developed and well-nourished. No distress. Cardiovascular: Normal rate, regular rhythm and normal heart sounds. No peripheral edema. Lungs: Respiratory effort normal and breath sounds normal. No crackles or wheezes. Abdominal: Soft. Bowel sounds are normal. Musculoskeletal: No muscle tenderness. Neurological: Alert. Dialysis Access: PD catheter is in place, exit site examined by SLOANE mueller. DIALYSIS LABS: 07/22/16 Hb 13, TSAT 35, ferritin 213 Sodium 138, potassium 4.1, bicarb 23, BUN 22, Cr 3.11, glucose 105, Mg 1.9 Albumin 4.2, calcium 9.1, phos 3.3, PTH 149, vit D 33 PD Kt/V 5.37, dialysate volume 8151 mL (pt submitted an extra bag of effluent), urine vol ume 2400 mL ASSESSMENT AND PLAN: ICD-10-CM ICD-9-CM 1. End stage renal disease (HCC) N18.6 585.6 On CCPD, 2 exchanges x 2000 mL, last fill 1000 mL, total volume 5 Liters. -Latest Kt/V is not accurate, as pt submitted an extra bag of effluent. Will re-do Kt/V ca lculation using current prescription of 5 Liters. -Pt's current MDRD eGFR is 22 mL/min based on serum creatinine of 3.11 mg/dL. Will d/w [facility] transplant team regarding his eGFR >20 mL/min. 2. Essential hypertension, benign I10 401.1 Clinic BP is at goal. Pt is non-edematous. 3. Anemia in CKD (chronic kidney disease) N18.9 285.21 Hb >11. Not on BENY. D63.1 585.9 4. Secondary hyperparathyroidism (HCC) N25.81 588.81 Serum calcium and phos levels are at g oal. PTH and vit D levels are at goal. 5. Awaiting transplantation of kidney Z76.82 V49.83 Listed for kidney transplant through [facility]. Cc: Polo Holman documented in this encounter [...] | | | | | | [place] [address] | | | | | | [phone] | | | | | | | [...]
--- OUTSIDE RECORDS SUMMARY | ~2019-12-22 | XMS | Encounter Summary ---
Demographics + + + | Address | [address] | | | [place] [address] | + + + | Home Phone [...] [place], [place] | | | | | [address] | | + + + + + | Misty Boateng | ECON | [address] | | | | | [place] | | | | | [address] | | + + + + + Care Team Providers + +------+ + | Care Laborer Powerhouse Name | Role | Phone | + [...] | kidney | MD Bj | [address] | | | | | disease, | 1100 | [address] | | | | | stage 4 | Laura | [address] [place] | | | | | (severe) | [address] | [place] | | | | | (HCC) | [place], | [address] Phone: | | | | | Essential | [place] | [phone] | | | | | hypertension | [address] | Fax: | | | | | , benign | Phone: | [phone] | | | | | Procedures | [phone] | | | | | | [place] OFFICE | Fax: | | | | | | OUTPATIENT | [phone] | | | | | | VISIT 25 | | | | | | | MINUTES | | | +--------+--------+ + + + + Encounter Details +--------+---------+ + + + | Date | Type | Department | Care Team | Description | +--------+---------+ + + + | 06/23/ | Office | [facility] | Christine Martinez, | CKD (chronic kidney | | 2017 | Visit | NEPHROLOGY [address] | [address] | disease) stage 4, | | | | [address] | [address] [place] | GFR 15-29 ml/min | | | | [place] | [place] [address] | ([facility]) (Primary Dx); | | | | [address] | [phone] | Essential | | | | [phone] | | hypertension, | | | | | | benign; Anemia in | | | | | | stage 4 chronic | | | | | | kidney disease | | | | | | ([facility]); Secondary | | | | | | hyperparathyroidism | | | | | | ([facility]); Awaiting | | | | | | [...] Lorenzo/ Dr. Reynolds on 02/15/16. Secondary hyperparathyroidism ([facility]) 11/26/2015 H/O Gastric ulcer 11/08/2015 CKD (chronic kidney disease) stage 4, GFR 15-29 ml/min ([facility]) 10/29/2015 Note Last Updated: 10/20/2016 On peritoneal [...] RBC, External 06/17/2017 0 Final UA Specific [place], External 06/17/2017 1.014 Final UA Leukocyte Esterase, [...] 5. Awaiting transplantation of kidney Referred to [facility]. On hold given eGFR >20 mL/min. [...] | | | | | [place] [address] | | | | | | [phone] | | | | | | | [...]
--- OUTSIDE RECORDS SUMMARY | ~2019-12-22 | XMS | Encounter Summary ---
Demographics + + + | Address | [address] | | | [place] [address] | + + + | Home Phone [...] [place], [place] | | | | | [address] | | + + + + + | Misty Boateng | ECON | [address] | | | | | [place], [place] | | | | | [address] | | + + + + + Care Team Providers + +------+ + | Care Private Advisor Name | Role | Phone | + [...] + + | 11/25/ | Documentati | [facility] | Christine Martinez W, | Dialysis | | 2016 | on | NEPHROLOGY [address] | MD [address] | (Asymptomatic) | | | | [address] | [address] [place] | | | | | [place], [place] | [facility] [address] | | | | | [address] | [phone] | | | | | [phone] | | | +--------+ + + + [...] dialysis progress note e-faxed to [facility], 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 Transplant process through [facility]. eGFR 19 mL/min. 2. Essential hypertension, [...] Jhaveri () Cc: Polo Valles Bj Holman [facility] Kidney Transplant documented in this encounter Plan of Treatment +--------+---------+ + + + | Date | Type | Specialty | Care Team | Description | +--------+---------+ + + + | 03/20/ | Office | Nephrology | Christine Martinez, | | | 2019 | Visit | | MD Monica Manzanares | | | | | | [facility] [address] [facility] | | | | | | [place] [address] | | | | | | [phone] | | | | | | | [...]
--- OUTSIDE RECORDS SUMMARY | ~2019-12-22 | XMS | Encounter Summary ---
Demographics + + + | Address | [address] | | | [place] [address] | + + + | Home Phone | | + + + | Preferred Language | Unknown | + + + | Marital Status | | + + + | Orthodox Affiliation | 1041 | + + [...] [place], [place] | | | | | [address] | | + + + + + | Misty Boateng | ECON | [address] | | | | | [place], [place] | | | | | [address] | | + + + + + Care Team Providers + +------+ + | Care Operational Test Mechanic Name | Role | Phone | [...] | NEPHROLOGY [address] | [address] | disease, stage IV | | | | [address] | [address] [place] | (severe) (HCC) | | | | [place], [place] | [place] [address] | (Primary Dx); | | | | [address] | [phone] | Interstitial | | | | [phone] | | nephritis chronic | +--------+ + [...] PSTLabs only [facility] by Kenyatta Jacome RN at 05/30/2015 8:13 AM PSTdocumented in this e ncounter Plan of Treatment +--------+---------+ + + + | Date | Type | Specialty | Care Team | Description | +--------+---------+ + + + | 03/20/ | Office | Nephrology | Christine Martinez, | | | 2019 | Visit | | [address] | | | | | | [address] [place] | | | | | | [place] [address] | | | | | | [phone] | | | | | | | [...]
--- OUTSIDE RECORDS SUMMARY | ~2019-12-22 | XMS | Encounter Summary ---
Demographics + + + | Address | [address] | | | [place] [address] | + + + | Home Phone [...] [place], [place] | | | | | [address] | | + + + + + | Misty Boateng | ECON | [address] | | | | | [place], [place] | | | | | [address] | | + + + + + Care Team Providers + +------+ + | Care Concrete Tile Machine Operator Name | Role | Phone [...] NEPHROLOGY [address] | MD [address] | | | | | [address] | [address] [place] | | | | | [place], [place] | [place] [address] | | | | | [address] | [phone] | | | | | [phone] | | | +--------+ + + + [...] | | | | | [place] [address] | | | | | | [phone] | | | | | | | [...] + + + + + + | PEG DRIVER | 1 | 100 U/mL | [...]
--- OUTSIDE RECORDS SUMMARY | ~2019-12-22 | XMS | Encounter Summary ---
Demographics + + + | Address | [address] | | | [place] [address] | + + + | Home Phone [...] [place], [place] | | | | | [address] | | + + + + + | Misty Boateng | ECON | [address] | | | | | [place] | | | | | [address] | | + + + + + Care Team Providers + +------+ + | Care Unemployment Inspector Name | Role | Phone | + +------+ + | Jt Perkins MD | PCP | | + +------+ + Encounter Details +--------+ + + + + | Date | Type | Department | Care Team | Description | +--------+ + + + + | 05/04/ | Orders Only | [facility] | Christine Martinez, | CKD (chronic kidney | | 2018 | | NEPHROLOGY [address] | [address] [place] | disease) stage 4, | | | | [address] | [address] [place] | GFR 15-29 ml/min | | | | [place] | [place] [address] | ([facility]) (Primary Dx) | | | | [address] | [phone] | | | | | [phone] | | | +--------+ + + + [...] encounter Progress Notes Kenyatta Jacome RN - 05/04/2018 10:22 AM PDTLabs for upcoming nephrology appointment sent to: [facility] documented in this encounter Plan of Treatment [...] | | | | | [place] [address] | | | | | | [phone] | | | | | | | | +--------+---------+ + + + documented as of this encounter Visit Diagnoses + + | Diagnosis | + + | CKD (chronic kidney disease) stage 4, GFR 15-29 ml/min ([facility]) - Primary Chronic kidney | | disease, Stage IV (severe) | + + documented in this encounter"
--- OUTSIDE RECORDS SUMMARY | ~2019-12-22 | XMS | Encounter Summary ---
Demographics + + + | Address | [address] | | | [place] [address] | + + + | Home Phone [...] [place], [place] | | | | | [address] | | + + + + + | Misty Boateng | ECON | [address] | | | | | [place], [place] | | | | | [address] | | + + + + + Care Team Providers + +------+ + | Care Warehouse Shift Supervisor Name | Role | Phone | [...] NEPHROLOGY [address] | [address] | | | | | [address] | [address] [place] | | | | | [place], [place] | [place] [address] | | | | | [address] | [phone] | | | | | [phone] | | | +--------+ + + + [...] | | | | | [place] [address] | | | | | | [phone] | | | | | | | [...]
--- OUTSIDE RECORDS SUMMARY | ~2019-12-22 | XMS | Encounter Summary ---
Demographics + + + | Address | [address] [place] [address] | | | [place] [address] | + + + | Home Phone [...] Team Providers + +------+ + | Care Md Senior Research Scientist Name | Role | Phone | [...] PPV | | | | | | [address] | | | | | | Loop Physician's | | | | | | [place], [address] Floor | | | | | | [place], [place] | | | | | | [address] | | | | | | [phone] | | | +--------+ + + + [...] | | | | PST | (moderate) ([facility]) | results section. | | | | [...]
--- OUTSIDE RECORDS SUMMARY | ~2019-12-22 | XMS | Encounter Summary ---
Demographics + + + | Address | [address] | | | [place] [address] | + + + | Home Phone [...] [place], [place] | | | | | [address] | | + + + + + | Misty Boateng | ECON | [address] | | | | | [place], [place] | | | | | [address] | | + + + + + Care Team Providers + +------+ + | Care Bronze Chaser Name | Role | Phone | + [...] | NEPHROLOGY [address] | [address] | | | | | [address] | [address] [place] | | | | | [place], [place] | [place] [address] | | | | | [address] | [phone] | | | | | [phone] | | | +--------+ + + + [...] | | | | | [place] [address] | | | | | | [phone] | | | | | | | [...] [address] | [place] | [phone] | | [facility] | | [address] | | | - LABORATORY | | [...] + | [address] | [address] | [place] | [phone] | | [facility] | | [address] | | | - LABORATORY | | [...] [address] | [place] | [phone] | | [facility] | | [address] | | | - LABORATORY | | [...]
--- OUTSIDE RECORDS SUMMARY | ~2019-12-22 | XMS | Encounter Summary ---
Demographics + + + | Address | [address] [place] [address] | | | [place] [address] | + + + | Home Phone [...] Team Providers + +------+ + | Care Raisin Separator Operator Name | Role | Phone | [...] | +--------+ + + + + | 12/05/ | Telephone | Clinical | Thi Aden, | Care Coordination | | 2016 | | Transplant Services | RN [address] | (care everywhere | | | | [address] Davion | Davion Kait Barrios | refresh) | | | | Kait Barrios [place], | [place], [place] | | | | | [place] [address] | [address] | | | | | [phone] | | | +--------+ + + + [...]
--- OUTSIDE RECORDS SUMMARY | ~2019-12-22 | XMS | Encounter Summary ---
Demographics + + + | Address | [address] | | | [place] [address] | + + + | Home Phone | | + + + | Preferred Language | Unknown | + + + | Marital Status | | + + + | Scientologist Affiliation | 1041 | + + + | Race | Unknown | + + + | Ethnic Group | Unknown | + + + Author + + + | Author | [facility] | | | and [place] | + + + | Organization | [facility] | | | and [place] | + + + | Address | Unknown | + + + | Phone | Unavailable | + + + Support + + + + + | Name | Relationship | Address | Phone | + + + + + | Ryan Oneill | ECON | [place], [place] | | | | | [address] | | + + + + + | Misty Boateng | ECON | [address] | | | | | [place] | | | | | [address] | | + + + + + Care Team Providers + +------+ + | Care Therapeutic Radiologist Name | Role | Phone | + [...] | kidney | MD Bj | [address] | | | | | disease, | [address] | [address] | | | | | stage 4 | [place] | [address] | | | | | (severe) | [address] | [facility] [place] | | | | | (HCC) | [place], | [address] Phone: | | | | | Essential | [place] | [phone] | | | | | hypertension | [address] | Fax: | | | | | , benign | Phone: | [phone] | | | | | Procedures | [phone] | | | | | | [place] OFFICE | Fax: | | | | | | OUTPATIENT | [phone] | | | | | | VISIT 25 | | | | | | | MINUTES | | | +--------+--------+ + + + + Encounter Details +--------+---------+ + + + | Date | Type | Department | Care Team | Description | +--------+---------+ + + + | 01/26/ | Office | [facility] | Christine Martinez W, | CKD (chronic kidney | | 2018 | Visit | NEPHROLOGY [address] | [address] | disease) stage 4, | | | | [address] | [address] [place] | GFR 15-29 ml/min | | | | [place], [place] | [place] [address] | ([facility]) (Primary Dx); | | | | [address] | [phone] | Essential | | | | [phone] | | hypertension; Anemia | | | | | | in stage 4 chronic | | | | | | kidney disease | | | | | | ([facility]); Secondary | | | | | | hyperparathyroidism | | | | | | ([facility]) | +--------+---------+ + + + Social [...] added to kidney transplant waiting list at [facility] Waiting time qualifying date: 10/04/15 04/28/16- Active on transplant list at [facility]. Referred to [facility]. Cleared for transplant by Dr. Lorenzo/ Dr. Reynolds on 02/15/16. Secondary hyperparathyroidism (HCC) 11/26/2015 H/O Gastric ulcer 11/08/2015 CKD (chronic kidney disease) stage 4, GFR 15-29 ml/min ([facility]) 10/29/2015 Note Last Updated: 10/20/2016 On [...] RBC, External 01/22/2018 2 Final UA Specific [place], External 01/22/2018 1.018 Final UA Leukocyte Esterase, [...] stage 4, GFR 15-29 ml/min ([facility]) Due to chronic interstitia l nephropathy. History of dialysis x 10 months. eGFR >20 mL/min. Clinically, pt is doing well. Plan to contact [facility] Transplant, once eGFR is <20 for [...] | | | | | [address] [facility] | | | | | | [place] [address] | | | | | | [phone] | | | | | | | [...] stage 4, GFR 15-29 ml/min ([facility]) - Primary Chronic kidney | | disease, Stage IV (severe) | + + | Essential hypertension Essential hypertension, benign | + + | Anemia in stage 4 chronic kidney disease (HCC) | + + | Secondary hyperparathyroidism (HCC) Secondary hyperparathyroidism (of renal origin) | + + documented in this encounter"
--- OUTSIDE RECORDS SUMMARY | ~2019-12-22 | XMS | Encounter Summary ---
Demographics + + + | Address | [address] | | | [place] [address] | + + + | Home Phone | | + + + | Preferred Language | Unknown | + + + | Marital Status | | + + + | Synagogue Affiliation | 1041 | + + + | Race | Unknown | + + + | Ethnic Group | Unknown | + + + Author + + + | Author | [facility] | | | and [place] | + + + | Organization | [facility] | | | and [place] | + + + | Address | Unknown | + + + | Phone | Unavailable | + + + Support + + + + + | Name | Relationship | Address | Phone | + + + + + | Ryan Oneill | ECON | [place], [place] | | | | | [address] | | + + + + + | Misty Boateng | ECON | [address] | | | | | [place], [place] | | | | | [address] | | + + + + + Care Team Providers + +------+ + | Care Test Car Driver Name | Role | Phone | [...] | NEPHROLOGY [address] | [address] | disease) stage 4, | | | | [address] | [address] [place] | GFR 15-29 ml/min | | | | [place], [place] | [place] [address] | (HCC) (Primary Dx); | | | | [address] | [phone] | Anemia in CKD | | | | [phone] | | (chronic kidney | | | [...] | | | | | [place] [address] | | | | | | [phone] | | | | | | | [...] 10/03/2016 | | | | | ml/min ([facility]) Anemia | | | | | | in CKD (chronic | | | | | | kidney disease) | | + +------+--------+ + + documented as of this encounter Visit Diagnoses + + | Diagnosis | + + | CKD (chronic kidney disease) stage 4, GFR 15-29 ml/min ([facility]) - Primary Chronic kidney | | disease, Stage IV (severe) | + + | Anemia in CKD (chronic kidney disease) Anemia in chronic kidney disease | + + documented in this encounter"
--- OUTSIDE RECORDS SUMMARY | ~2019-12-22 | XMS | Encounter Summary ---
Demographics + + + | Address | [address] [place] [address] | | | [place] [address] | + + + | Home Phone [...] Team Providers + +------+ + | Care Qa Test Lead Name | Role | Phone | + +------+ + | Hai Holman MD | PCP | | + +------+ + Reason for Visit Diagnostic Testing (Routine) +--------+--------+ + + + + | Status | Reason | Specialty | Diagnoses / | Referred By | Referred To | | | | | Procedures | Contact | Contact | +--------+--------+ + + + + | Closed | | Cardiology | Diagnoses | Txc Trans | Car Echo | | | | | Chronic | Coord Renal | [facility] [address] | | | | | kidney | [address] | [address] | | | | | disease, | Davion | [address] | | | | | stage III | Kait Barrios | Bc | | | | | (moderate) | [place], [place] | [facility], 2nd | | | | | (HCC) Acute | [address] | floor | | | | | | Phone: | [place], [place] | | | | | interstitial | [phone] | [address] | | | | | nephritis | Fax: | Phone: | | | | | Procedures | [phone] | [phone] | | | | | TRANSTHORACI | [...] | 09/06/ | Hospital | Cardiac | | | | 2016 | Encounter | Non-Invasive Testing | | | | | | at [address] | | | | | | [address] | | | | | | [address] | | | | | | Bc [facility], [facility] | | | | | | [place], [place] | | | | | | [address] | | | | | | [phone] | | | +--------+ + + + [...] | ADULT | | PST | (moderate) ([facility]) | results section. | | [...] DEPT OF | [address] | [place], [place] | | | CARDIOLOGY | [address] | [address] | | + + + + + documented in this encounter Visit Diagnoses + + | Diagnosis | + + | Chronic kidney disease, stage III (moderate) (HCC) - Primary Chronic kidney disease, | | Stage III (moderate) | + + | Acute interstitial nephritis Other acute glomerulonephritis with other specified | | pathological lesion in kidney | + + documented in this encounter"
--- OUTSIDE RECORDS SUMMARY | ~2019-12-22 | XMS | Encounter Summary ---
Demographics + + + | Address | [address] [place] [address] | | | [place] [address] | + + + | Home Phone [...] Team Providers + +------+ + | Care Doggy Daycare Activities Director Name | Role | Phone | [...] | | | | | renal | [place] | [address] [facility] [address] | | | | | disease | [address] | Dav[address]ball[address] | | | | | Illness, | Nephrology | [address] [place], | | | | | unspecified | [address] | [place] | | | | | [address] | [address] | | | | | | [address] | Phone: | | | | | | [place], | [phone] | | | | | | [place] [address] | Fax: | | | | | | Phone: | [phone] | | | | | | [phone] | | | | | | | Fax: | | | | | | | [phone] | | +--------+--------+ + + + + Encounter Details +--------+---------+ + + + | Date | Type | Department | Care Team | Description | +--------+---------+ + + + | 07/02/ | Office | Kidney Transplant | Md3, [address]tx [address] | ESRD (end stage | | 2016 | Visit | at [facility] [address] | [facility] | renal disease) ([facility]) | | | | [address] | Road [place], [place] | (Primary Dx); | | | | Physician's | [address] | Dialysis patient | | | | Pavilion, 3rd floor | | (HCC) | | | | [place], [place] | | | | | | [address] | | | | | | [phone] | | | +--------+---------+ + + + [...] disease | + + | Dialysis patient ([facility]) Renal dialysis status | + + documented in this encounter"
--- OUTSIDE RECORDS SUMMARY | ~2019-12-22 | XMS | Encounter Summary ---
Demographics + + + | Address | [address] [place] [address] | | | [place] [address] | + + + | Home Phone [...] Author + + + | Author | [facility] | + + + | Organization | [facility] | + + + | Address | Unknown | + + + | Phone | Unavailable | + + + Support + + +---------+ + | Name | Relationship | Address | Phone | + + +---------+ + | Misty Oneill | ECON | Unknown | | + + +---------+ + Care Team Providers + +------+ + | Care Supervisor [place] Name | Role | Phone | + [...] | | Chronic | Coord Renal | [facility] [address] | | | | | kidney | [address] | [address] | | | | | disease, | Davion | [address] | | | | | stage III | Kait Barrios | Bc | | | | | (moderate) | [place], [place] | [facility], 2nd | | | | | (HCC) Acute | [address] | floor | | | | | | Phone: | [place], [place] | | | | | interstitial | [phone] | [address] | | | | | nephritis | Fax: | Phone: | | | | | Procedures | [phone] | [phone] | | | | | TRANSTHORACI | [...] [place] | | | | | | [address] | | | | | | [address] | | | | | | Bc [facility], [facility] | | | | | | [place], [place] | | | | | | [address] | | | | | | [phone] | | | +--------+ + + + [...] | ADULT | | PST | (moderate) ([facility]) | results section. | | | [...] DEPT OF | [address] | [place], [place] | | | CARDIOLOGY | [address] | [address] | | + + + + + [...]
--- OUTSIDE RECORDS SUMMARY | ~2019-12-22 | XMS | Encounter Summary ---
Demographics + + + | Address | [address] [place] [address] | | | [place] [address] | + + + | Home Phone [...] Team Providers + +------+ + | Care Statistical Clerk Advertising Name | Role | Phone | + [...] refresh) | | | | [address] [place], | [place], [place] | | | | | [place] [address] | [address] | | | | | [phone] | | | +--------+ + + + [...]
--- OUTSIDE RECORDS SUMMARY | ~2019-12-22 | XMS | Encounter Summary ---
Demographics + + + | Address | [address] [place] [address] | | | [place] [address] | + + + | Home Phone [...] Team Providers + +------+ + | Care Associate Director Regulatory Affairs Name | Role | Phone | + [...] | sialoadeniti | [address]ball[address] | Kait Barrios | | | | | s Other | Rd | [place], [place] | | | | | diseases of | [place], [place] | [address] | | | | | salivary | [address] | Phone: | | | | | glands | Phone: | [phone] | | | | | Procedures | [phone] | Fax: | | | | | REQUEST TO | Fax: | [phone] | | | | | SURGERY | [phone] | | | | | | SEAFOOD AND SERVICE MEAT MANAGER | | | | | | | CO EXC | | | | | | | PAROTD | | | | | | | RAJIV,LATER | | | | | | | LOBE CO EXC | | | | | | | PAROTD,LAT | | | | | | | LOBE,DISSECT | | | | | | | 5TH NERV | | | | | | | CO EXC | | | | | | [...] + + + + | 11/27/ | Weight Yardage Checker | Otolaryngology | Tim Skinner MD | Left Parotid mass | | 2019 | | Head and Neck | [address] | (Primary Dx) | | | | Surgery Services at | [address] [place], | | | | | [facility] [address] | [place] [address] | | | | | Ave Mailcode: | [phone] | | | | | [facility] | | | | | | and Healing, | | | | | | [address] | | | | | | [place], [place] | | | | | | [address] | | | | | | [phone] | | | +--------+ + + + [...]
--- OUTSIDE RECORDS SUMMARY | ~2019-12-22 | XMS | Encounter Summary ---
Demographics + + + | Address | [address] [place] [address] | | | [place] [address] | + + + | Home Phone [...] Team Providers + +------+ + | Care Vacuum Tester Cans Name | Role | Phone | + [...] | | | | | Kait Barrios [place], | [place], [place] | | | | | [place] [address] | [address] | | | | | [phone] | [phone] | | | | | | | [...] | + + + + + | [facility] | [address] [facility] | [place] [address] | [phone] | | CENTER | | | | + + + + + documented in this encounter Visit Diagnoses Not on filedocumented in this encounter"
--- OUTSIDE RECORDS SUMMARY | ~2019-12-22 | XMS | Encounter Summary ---
Demographics + + + | Address | [address] [place] [address] | | | [place] [address] | + + + | Home Phone [...] Providers + +------+ + | Care Director Hospice Operations Name | Role | Phone | + [...] | | | | | Kait Barrios [place], | [place], [place] | | | | | [place] [address] | [address] | | | | | [phone] | [phone] | | | | | | | [...]
--- OUTSIDE RECORDS SUMMARY | ~2019-12-22 | XMS | Encounter Summary ---
Demographics + + + | Address | [address] | | | [place] [address] | + + + | Home Phone | | + + + | Preferred Language | Unknown | + + + | Marital Status | | + + + | Jain Affiliation | 1041 | + + + [...] [place], [place] | | | | | [address] | | + + + + + | Misty Boateng | ECON | [address] | | | | | [place], [place] | | | | | [address] | | + + + + + Care Team Providers + +------+ + | Care Carbon Lamp Cleaner Name | Role | Phone | + +------+ + PCP | Unavailable | + +------+ + Encounter Details +--------+ + + + + | Date | Type | Department | Care Team | Description | +--------+ + + + + | 06/17/ | Abstract | [facility] | Christine Matrinez W, | | | 2015 | | NEPHROLOGY [address] | [address] | | | | | [address] | [address] [place] | | | | | [place], [place] | [place] [address] | | | | | [address] | [phone] | | | | | [phone] | | | +--------+ + + + [...] kidney transpla nt waiting list letter from [facility] that they sent to patient, dos: 06/17/16. [...] | | | | | [place] [address] | | | | | | [phone] | | | | | | | | +--------+---------+ + + + documented as of this encounter Visit Diagnoses Not on filedocumented in this encounter"
--- OUTSIDE RECORDS SUMMARY | ~2019-12-22 | XMS | Encounter Summary ---
Demographics + + + | Address | [address] [place] [address] | | | [place] [address] | + + + | Home Phone [...] Team Providers + +------+ + | Care Aviculturist Name | Role | Phone | + [...] 2019 | | [address] | [facility] [address] | | | | | Michelle Adam | [address] | | | | | Perry Y[place], Arm[place] | [place], [place] | | | | | [address] [place], [place] | [address] | | | | | [address] | [phone] | | | | | [phone] | | | +--------+ + + + [...]
--- OUTSIDE RECORDS SUMMARY | ~2019-12-22 | XMS | Encounter Summary ---
Demographics + + + | Address | [address] | | | [place] [address] | + + + | Home Phone | | + + + | Preferred Language | Unknown | + + + | Marital Status | | + + + | Christian Affiliation | 1041 | + + + [...] [place], [place] | | | | | [address] | | + + + + + | Misty Boateng | ECON | [address] | | | | | [place], [place] | | | | | [address] | | + + + + + Care Team Providers + +------+ + | Care Agricultural Service Technician Name | Role | Phone | [...] NEPHROLOGY [address] | M, DO [address] | | | | | [address] | [address] | | | | | [place], [place] | [place], [place] | | | | | [address] | [address] | | | | | [phone] | | | +--------+ + + + [...] | | | | | [place] [address] | | | | | | [phone] | | | | | | | | +--------+---------+ + + + documented as of this encounter Visit Diagnoses Not on filedocumented in this encounter"
--- OUTSIDE RECORDS SUMMARY | ~2019-12-22 | XMS | Encounter Summary ---
Demographics + + + | Address | [address] | | | [place] [address] | + + + | Home Phone | | + + + | Preferred Language | Unknown | + + + | Marital Status | | + + + | Temple Affiliation | 1041 | + + + | Race | Unknown | + + + | Ethnic Group | Unknown | + + + Author + + + | Author | [facility] | | | and [place] | + + + | Organization | [facility] | | | and [place] | + + + | Address | Unknown | + + + | Phone | Unavailable | + + + Support + + + + + | Name | Relationship | Address | Phone | + + + + + | Ryan Oneill | ECON | [place], [place] | | | | | [address] | | + + + + + | Misty Boateng | ECON | [address] | | | | | [place], [place] | | | | | [address] | | + + + + + Care Team Providers + +------+ + | Care Commercial Lender Name | Role | Phone | + [...] | NEPHROLOGY [address] | [address] | | | | | [address] | [address] [place] | | | | | [place], [place] | [place] [address] | | | | | [address] | [phone] | | | | | [phone] | | | +--------+ + + + [...] | | | | | [place] [address] | | | | | | [phone] | | | | | | | [...]
--- OUTSIDE RECORDS SUMMARY | ~2019-12-22 | XMS | Encounter Summary ---
Demographics + + + | Address | [address] [place] [address] | | | [place] [address] | + + + | Home Phone [...] Providers + +------+ + | Care Health Services Director Name | Role | Phone [...] Services | RN [address] | [facility] | | | | [address] | [address] | | | | | Kait Barrios [place], | [place], [place] | | | | | [place] [address] | [address] | | | | | [phone] | | | +--------+ + + + [...]
--- OUTSIDE RECORDS SUMMARY | ~2019-12-22 | XMS | Encounter Summary ---
Demographics + + + | Address | [address] [place] [address] | | | [place] [address] | + + + | Home Phone | | + + + | Preferred Language | Unknown | + + + | Marital Status | | + + + | Yarsani Affiliation | CHR | + + + [...] Team Providers + +------+ + | Care Artist Manager Name | Role | Phone | [...] | | | | | Kait Barrios [place], | [place], [place] | | | | | [place] [address] | [address] | | | | | [phone] | [phone] | | | | | | | [...] Performed At | + + + | [place] | NON [facility] | | [facility] [place] [address] | | + + + + +---------+ + + | Performing | Address | City/State/Zipcode | Phone Number | | Organization | | | | + +---------+ + + | NON [facility] | | | | + +---------+ + + documented in this encounter Visit Diagnoses Not on filedocumented in this encounter"
--- OUTSIDE RECORDS SUMMARY | ~2019-12-22 | XMS | Encounter Summary ---
Demographics + + + | Address | [address] | | | [place] [address] | + + + | Home Phone [...] [place], [place] | | | | | [address] | | + + + + + | Misty Boateng | ECON | [address] | | | | | [place], [place] | | | | | [address] | | + + + + + Care Team Providers + +------+ + | Care Solid Propellant Processor Name | Role | Phone | [...] | NEPHROLOGY [address] | [address] [place] | disease, stage IV | | | | [address] | [address] [place] | ([facility]) (Primary Dx) | | | | [place], [place] | [place] [address] | | | | | [address] | [phone] | | | | | [phone] | | | +--------+ + + + [...] | | | | | | [place] [address] | | | | | | [phone] | | | | | | | | +--------+---------+ + + + documented as of this encounter Visit Diagnoses + + | Diagnosis | + + | Chronic renal disease, stage IV (HCC) - Primary Chronic kidney disease, Stage IV | | (severe) | + + documented in this encounter"
--- OUTSIDE RECORDS SUMMARY | ~2019-12-22 | XMS | Encounter Summary ---
Demographics + + + | Address | [address] | | | [place] [address] | + + + | Home Phone | | + + + | Preferred Language | Unknown | + + + | Marital Status | | + + + | Jewish Affiliation | 1041 | + + + | Race | Unknown | + + + | Ethnic Group | Unknown | + + + Author + + + | Author | [facility] | | | and [place] | + + + | Organization | [facility] | | | and [place] | + + + | Address | Unknown | + + + | Phone | Unavailable | + + + Support + + + + + | Name | Relationship | Address | Phone | + + + + + | Ryan Oneill | ECON | [place], [place] | | | | | [address] | | + + + + + | Misty Boateng | ECON | [address] | | | | | [place], [place] | | | | | [address] | | + + + + + Care Team Providers + +------+ + | Care Anthropology Faculty Member Name | Role | Phone | + [...] [address] [place] | | | | | [place], [place] | [place] [address] | | | | | [address] | [phone] | | | | | [phone] | | | +--------+ + + + [...] | | | | | [place] [address] | | | | | | [phone] | | | | | | | [...] 1.014 | | EXTERNAL | | | [place], | | | LAB | | | [...]
--- OUTSIDE RECORDS SUMMARY | ~2019-12-22 | XMS | Encounter Summary ---
Demographics + + + | Address | [address] [place] [address] | | | [place] [address] | + + + | Home Phone [...] Team Providers + +------+ + | Care Licensed Mortgage Loan Officer Name | Role | Phone | [...] 2016 | on | Transplant Services | FIRST AID TRAINER [place], [place] | Transplant | | | | [address] | [address] | Evaluation | | | | Kait Barrios [place], | | | | | | [place] [address] | | | | | | [phone] | | | +--------+ + + + [...]
--- OUTSIDE RECORDS SUMMARY | ~2019-12-22 | XMS | Encounter Summary ---
Demographics + + + | Address | [address] [place] [address] | | | [place] [address] | + + + | Home Phone [...] Providers + +------+ + | Care Mail Deliverer Name | Role | Phone | + [...] prescreen) | | | | Kait Barrios [place], | [place], [place] | | | | | [place] [address] | [address] | | | | | [phone] | | | +--------+ + + + [...]
--- OUTSIDE RECORDS SUMMARY | ~2019-12-22 | XMS | Encounter Summary ---
Demographics + + + | Address | [address] [place] [address] | | | [place] [address] | + + + | Home Phone [...] Team Providers + +------+ + | Care Hr Analyst Name | Role | Phone | [...] labs) | | | | [address] [place], | [place], [place] | | | | | [place] [address] | [address] | | | | | [phone] | | | +--------+ + + + [...]
--- OUTSIDE RECORDS SUMMARY | ~2019-12-22 | XMS | Encounter Summary ---
Demographics + + + | Address | [address] | | | [place] [address] | + + + | Home Phone [...] [place], [place] | | | | | [address] | | + + + + + | Misty Boateng | ECON | [address] | | | | | [place], [place] | | | | | [address] | | + + + + + Care Team Providers + +------+ + | Care District Loss Prevention Manager Name | Role | Phone | [...] [address] [place] | | | | | [place], [place] | [place] [address] | | | | | [address] | [phone] | | | | | [phone] | | | +--------+ + + + [...] | | | | | [place] [address] | | | | | | [phone] | | | | | | | [...]
--- OUTSIDE RECORDS SUMMARY | ~2019-12-22 | XMS | Encounter Summary ---
Demographics + + + | Address | [address] | | | [place] [address] | + + + | Home Phone [...] [place], [place] | | | | | [address] | | + + + + + | Misty Boateng | ECON | [address] | | | | | [place] | | | | | [address] | | + + + + + Care Team Providers + +------+ + | Care Test Specialist Name | Role | Phone | [...] | | | nephritis | [address] [place] [address] | | | | | Procedures | [place] | [address] [place] | | | | | [place] OFFICE | [address] | [place] | | | | | OUTPATIENT | [place], | [address] Phone: | | | | | VISIT 25 | [place] | [phone] | | | | | MINUTES | [address] | Fax: | | | | | | Phone: | [phone] | | | | | | [phone] | | | | | | | Fax: | | | | | | | [phone] | | +--------+--------+ + + + + Encounter Details +--------+---------+ + + + | Date | Type | Department | Care Team | Description | +--------+---------+ + + + | 08/07/ | Office | [facility] | Christine Martinez, | CKD (chronic kidney | | 2016 | Visit | NEPHROLOGY [address] | [address] [place] | disease) stage 4, | | | | [address] | [address] [place] | GFR 15-29 ml/min | | | | [place], [place] | [place] [address] | (HCC) (Primary Dx); | | | | [address] | [phone] | Interstitial | | | | [phone] | | nephritis chronic; | | | [...] to work some. Pt has appt at [facility] for transplant evaluation on 09/05/15. ROS: [...] 0 0 - 4 Final UA Specific [place], External 08/02/2015 1.016 1.005 - 1.030 Final [...] stage 4, GFR 15-29 ml/min ([facility]) N18.4 585.4 Kidney function staying stable around eGFR 19 mL/min. Reviewed symptoms of uremia with patient. Plan to arrange for PD catheter placement once indicated (pt has requested to be referred [facility]). Pt has appt with [facility] Transplant. 2. Interstitial nephritis chronic N11.9 [...] | | | | | [place] [address] | | | | | | [phone] | | | | | | | [...] 1.001 - 1.030 | | | | [place], | | | | | | UA, [...]
--- OUTSIDE RECORDS SUMMARY | ~2019-12-22 | XMS | Encounter Summary ---
Demographics + + + | Address | [address] [place] [address] | | | [place] [address] | + + + | Home Phone | | + + + | Preferred Language | Unknown | + + + | Marital Status | | + + + | Anabaptist Affiliation | CHR | + + + [...] Team Providers + +------+ + | Care Mash Grinder Name | Role | Phone | + [...] | | | | | Kait Barrios [place], | [place], [place] | | | | | [place] [address] | [address] | | | | | [phone] | [phone] | | | | | | | [...] Performed At | + + + | [facility] | NON [facility] | | [id number] [address] | | |[place] [address] | | + + + + +---------+ + + | Performing | Address | City/State/Zipcode | Phone Number | | Organization | | | | + +---------+ + + | NON [facility] | | | | + +---------+ + + documented in this encounter Visit Diagnoses Not on filedocumented in this encounter"
--- OUTSIDE RECORDS SUMMARY | ~2019-12-22 | XMS | Encounter Summary ---
Demographics + + + | Address | [address] [place] [address] | | | [place] [address] | + + + | Home Phone [...] Team Providers + +------+ + | Care Animal Therapist Name | Role | Phone | [...] | | | Surgery Services at | [place], | | | | | [facility] [address] | [place] [address] | | | | | Lenka Mailcode: | [phone] | | | | | [facility] | | | | | | and Healing, | | | | | | [address] | | | | | | [place], [place] | | | | | | [address] | | | | | | [phone] | | | +--------+ + + + [...]
--- OUTSIDE RECORDS SUMMARY | ~2019-12-22 | XMS | Encounter Summary ---
Demographics + + + | Address | [address] | | | [place] [address] | + + + | Home Phone [...] [place], [place] | | | | | [address] | | + + + + + | Misty Boateng | ECON | [address] | | | | | [place], [place] | | | | | [address] | | + + + + + Care Team Providers + +------+ + | Care Asphalt Paver Operator Name | Role | Phone | + +------+ + PCP | Unavailable | + +------+ + Encounter Details +--------+ + + + + | Date | Type | Department | Care Team | Description | +--------+ + + + + | 09/27/ | Hospital | [facility] | Travis Randall MD | ESRD (end stage | | 2016 | Encounter | [facility] | [address] | renal disease) ([facility]) | | | | [address] | [place], [place] | | | | | [place], [place] | [address] | | | | | [address] | [phone] | | | | | [phone] | | | +--------+ + + + [...] 09/28/151115 Date of Service: 09/28/151114 Status: Signed Fha Underwriter: Rosalina Rangel RN (Registered Nurse) Discharge instructions went over with patient and patient all questions answered and p rescriptions sent home with patient. onver benson Transaction, Provider Unknown - 09/28/2015 10:55 AM PST Progress Notes by Nikolai Victor RPH at 09/28/151054 Author: Nikolai Victor RPH Service: Pharmacy Author Type: Pharmacist Filed: 09/28/15 9743 Date of Service: 09/28/151054 Status: Signed Fha Underwriter: Nikolai Victor RPH (Pharmacist) Renal Dosing Monitoring: Seema A [...] [place] | | | | | | [place] [address] | | | | | | [phone] | | | | | | | [...] EXTERNAL | | | | performed at [facility];888 | mmol/L | LAB | | | | [place] | | | | | | [address] | | | | + + + [...]
--- OUTSIDE RECORDS SUMMARY | ~2019-12-22 | XMS | Encounter Summary ---
Demographics + + + | Address | [address] | | | [place] [address] | + + + | Home Phone [...] [place], [place] | | | | | [address] | | + + + + + | Misty Boateng | ECON | [address] | | | | | [place] | | | | | [address] | | + + + + + Care Team Providers + +------+ + | Care Composing Room Supervisor Name | Role | Phone | [...] | NEPHROLOGY [address] | [address] | disease) stage 4, | | | | [address] | [address] [place] | GFR 15-29 ml/min | | | | [place] | [place] [address] | ([facility]) (Primary Dx) | | | | [address] | [phone] | | | | | [phone] | | | +--------+ + + + [...] | | | | | [place] [address] | | | | | | [phone] | | | | | | | | +--------+---------+ + + + documented as of this encounter Visit Diagnoses + + | Diagnosis | + + | CKD (chronic kidney disease) stage 4, GFR 15-29 ml/min ([facility]) - Primary Chronic kidney | | disease, Stage IV (severe) | + + documented in this encounter"
--- OUTSIDE RECORDS SUMMARY | ~2019-12-22 | XMS | Encounter Summary ---
Demographics + + + | Address | [address] | | | [place] [address] | + + + | Home Phone [...] [place], [place] | | | | | [address] | | + + + + + | Misty Boateng | ECON | [address] | | | | | [place] | | | | | [address] | | + + + + + Care Team Providers + +------+ + | Care Paper Sales Manager Name | Role | Phone [...] | NEPHROLOGY [address] | [address] | disease) stage 4, | | | | [address] | [address] [place] | GFR 15-29 ml/min | | | | [place] | [place] [address] | ([facility]) (Primary Dx) | | | | [address] | [phone] | | | | | [phone] | | | +--------+ + + + [...] PSTLabs for upcoming nephrology appointment sent to: [facility] documented in t his encounter Plan of [...] | | | | | [place] [address] | | | | | | [phone] | | | | | | | [...] kidney disease) stage 4, GFR 15-29 ml/min ([facility]) - Primary Chronic kidney | | disease, Stage IV (severe) | + + documented in this encounter"
--- OUTSIDE RECORDS SUMMARY | ~2019-12-22 | XMS | Encounter Summary ---
Demographics + + + | Address | [address] | | | [place] [address] | + + + | Home Phone [...] [place], [place] | | | | | [address] | | + + + + + | Misty Boateng | ECON | [address] | | | | | [place], [place] | | | | | [address] | | + + + + + Care Team Providers + +------+ + | Care Tuber Operator Name | Role | Phone | [...] | NEPHROLOGY [address] | [address] | nephritis chronic | | | | [address] | [address] [place] | (Primary Dx) | | | | [place] | [place] [address] | | | | | [address] | [phone] | | | | | [phone] | | | +--------+ + + + [...] | | | | | [place] [address] | | | | | | [phone] | | | | | | | | +--------+---------+ + + + documented as of this encounter Visit Diagnoses + + | Diagnosis | + + | 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
--- OUTSIDE RECORDS SUMMARY | ~2019-12-22 | XMS | Encounter Summary ---
Demographics + + + | Address | [address] [place] [address] | | | [place] [address] | + + + | Home Phone [...] Team Providers + +------+ + | Care Latex Caster Name | Role | Phone | + [...] | | | | | [address] [place], | [place], [place] | | | | | [place] [address] | [address] | | | | | [phone] | | | +--------+ + + + [...] [address] | | | [place] [address] | | | [phone] | | + + + + +---------+ + + | Performing | Address | City/State/Zipcode | Phone Number | | Organization | | | | + +---------+ + + | [facility] | | | | + +---------+ + + documented in this encounter Visit Diagnoses Not on filedocumented in this encounter"
--- OUTSIDE RECORDS SUMMARY | ~2019-12-22 | XMS | Encounter Summary ---
Demographics + + + | Address | [address] | | | [place] [address] | + + + | Home Phone [...] [place], [place] | | | | | [address] | | + + + + + | Misty Boateng | ECON | [address] | | | | | [place], [place] | | | | | [address] | | + + + + + Care Team Providers + +------+ + | Care Retail Business Manager Name | Role | Phone | + +------+ + PCP | Unavailable | + +------+ + Encounter Details +--------+ + + + + | Date | Type | Department | Care Team | Description | +--------+ + + + + | 11/28/ | Hospital | [facility] | Travis Randall MD | | | 2017 | [facility] | [address] | | | | | [address] | [address] [address] [place], [place] | | | | | [place], [place] | [address] | | | | | [address] | [phone] | | | | | [phone] | | | +--------+ + + + [...] 1032 Date of Service: 11/28/161030 Status: Signed [employer] Principal: Rosalina Rangel RN (Registered Nurse) Discharge instructions [...] | | | | | [place] [address] | | | | | | [phone] | | | | | | | [...]
--- OUTSIDE RECORDS SUMMARY | ~2019-12-22 | XMS | Encounter Summary ---
Demographics + + + | Address | [address] [place] [address] | | | [place] [address] | + + + | Home Phone | | + + + | Preferred Language | Unknown | + + + | Marital Status | | + + + | Lutheran Affiliation | CHR | + + + | Race | White | + + + | Ethnic Group | Not or | + + + Author + + + | Author | [facility] | + + + | Organization | [facility] | + + + | Address | Unknown | + + + | Phone | Unavailable | + + + Support + + +---------+ + | Name | Relationship | Address | Phone | + + +---------+ + | Misty Oneill | ECON | Unknown | | + + +---------+ + Care Team Providers + +------+ + | Care Well Site Drilling Engineer Name | Role | Phone | [...] | | Chronic | Coord Renal | [facility] [address] | | | | | kidney | [address] | [address] | | | | | disease, | Davion | [address] | | | | | stage III | Dano Barrios | Bc | | | | | (moderate) | [place], [place] | [facility], 2nd | | | | | (HCC) Acute | [address] | floor | | | | | | Phone: | [place], [place] | | | | | interstitial | [phone] | [address] | | | | | nephritis | Fax: | Phone: | | | | | Procedures | [phone] | [phone] | | | | | TRANSTHORACI | [...] Jose) | | | | Dano Barrios [place], | [place], [place] | | | | | [place] [address] | [address] | | | | | [phone] | | | +--------+ + + + [...] | ADULT | | PST | (moderate) ([facility]) | results section. | | | | [...] DEPT OF | [address] | [place], [place] | | | CARDIOLOGY | [address] | [address] | | + + + + + [...] | + + + + + | [facility] DEPT OF | [address] | [place], [place] | | | CARDIOLOGY | [facility] | [address] | | + + + + + [...] | | + +---------+ + + | [facility] DEPARTMENT OF | | | | [...] | | + +---------+ + + | [facility] DEPARTMENT OF | | | | [...] | + + + + + | [facility] LABORATORY | [address] | [place] [address] | | | SERVICES, CORE | DANO [...] 5 | | | | | | ng/vL4-LC-Jgfpybtc 50 | | | | | | [...] | | | | | determined by [facility] | | | | | | Laboratories. See | | | | | | Compliance Statement B: | | | | | | Fashion Genome [email or web address] | | | | | | by [facility],[address] | | | | | | Jhonny Pérez, [facility] | | | | | | [address] | | | | | | [phone].aruplab. | | | | | | comCalvin, [...] REG UNIV | | | | and 7-LO-ucfqnwik is | | PTH - INTFC | | | | ametabolite of cotinine. | | | | | | After cessation from | | | | | | long-term orheavy use of | | | | | | nicotine products, | | | | | | 3-KJ-mfyuvmij may | | | | | | [...] [facility] | [address] | [place], [place] | | | UNIV PTH - INTFC | | [address] | | + + + + + [...] + | [facility] - AIRPORT - | [address] | [place] [address] | | | [place] | | | [...] + | [facility] - AIRPORT - | [address] | [place], [place] [address] | | | [facility] | | | | + + [...] by | | | | | | [facility],[address] | | | | | | Jhonny Pérez, [facility],[place] | | | | | | [address] | | | | | | [phone].Sportilia. | | | | | | jose, [...] [facility] | [address] | [place], [place] | | | UNIV PTH - INTFC | | [address] | | + + + + + [...] at | | | | | | [email or web address] | | | | | | x.Performed by [facility] | | | | | | [facility],[address] [place] [address] | | | | | | [place] [address] | | | | | | [phone].Clear Bookslab. | | | | | | [facility], [place], | | | | | [...] [facility] | [address] | [place], [place] | | | UNIV PTH - INTFC | | [address] | | + + + + + [...] + | [facility] AIRPORT - | [address] | [place] [address] | | | [facility] | | | | + + [...] by | | | | | | [facility],[address] | | | | | | Jhonny Pérez, [facility],[place] | | | | | | [address] | | | | | | [phone].Fashion Genome Projectlab. | | | | | | [facility], [place], | | | | | [...] [facility] | [address] | [place], [place] | | | UNIV PTH - INTFC | | [address] | | + + + + + [...] modified from | [facility] | | original personal financial advisor's approved specifications. | LABORATORY | | | SERVICES, | | | SPECIAL IMM + | | | COAG | + + + + + + + + | Performing | Address | City/State/Zipcode | Phone Number | | Organization | | | | + + + + + | [facility] | [address] | [place] [address] | | | SERVICES, SPECIAL | PARK [...] SUJATHA | [address] | [place] [address] | | | DIAGNOSTIC | [address] [...] | + + + + + | [employer] - AIRPORT - | [address] | [place] [address] | | | [facility] | | | | + + [...] + | [facility] AIRPORT - | [address] | [place] [address] | | | [place] | | | [...] + | [facility] AIRPORT - | [address] | [place] [address] | | | [place] | | | [...] + | [facility] AIRPORT - | [address] | [place] [address] | | | [facility] | | | | + + [...] by | | | | | | [facility],[address] | | | | | | Jhonny Pérez, [facility],[place] | | | | | | [address] | | | | | | [phone].Clear Bookslab. | | | | | | Calvin [...] [facility] | [address] | [place], [place] | | | UNIV PTH - INTFC | | [address] | | + + + + + [...] by | | | | | | [facility],[address] | | | | | | Jhonny Pérez, [facility],[place] | | | | | | [address] | | | | | | [phone].Fashion Genome Projectlab. | | | | | | [facility], [place], | | | | | [...] [facility] | [address] | [place], [place] | | | UNIV PTH - INTFC | | [address] | | + + + + + [...] [facility] | [address] | [place] [address] | | | SERVICES, CORE | DANO [...] [facility] | [address] | [place] [address] | | | SERVICES, CORE | PARK [...] | + + + + + | [facility] | [address] | [place] [address] | | | SERVICES, ALIYAH | DANO [...] [facility] | [address] | [place] [address] | | | ALIYAH MCKAY | DANO [...] INTERPRETATION: Prothrombin mutation analysis shows that | [facility] | | there is no mutation in either copy of the prothrombin gene at | DIAGNOSTIC | | nucleotide 00900. Please note that this assay only detects the | LABORATORIES | | [id number] point mutation and therefore a normal result [...] has been analyzed for the presence of [id number] | | | mutation in the prothrombin [...] | | Heterozygotes for the common prothrombin S30320J mutation constitute | | | approximately 2% of the normal white population (1,2). | | | References: 1.) Poort et al. Blood 88, 9322-2553 (1996). 2.) Usha | | | et al. Circulation 99, 999-1004 (1998). 3.) Ana Mccarty, and | | | Press. Amer J Clin Path 155, 439-47 (2001). This test was | | | developed and its performance characteristics determined by the [facility] | | | [facility]. It has | | | not been cleared or approved by the Food and Drug Administration. | | | FDA approval is not required for clinical use of this test, and | | | therefore validation was done as required under the requirements of | | | the Clinical Laboratory Improvement Act of 1988. [facility] | | | Diagnostic [facility] is a fully | | | licensed and/or accredited clinical laboratory under CLIA, CAP, and | | | the [facility]. Please note that our lab now [...] | + + + + + | [facility] | [address] | [place] [address] | | | DIAGNOSTIC | [address] [...] [facility] | [address] | [place] [address] | | | SERVICES, CORE | PARK [...] [facility] | [address] | [place] [address] | | | ALIYAH MCKAY | PARK [...] [facility] | [address] | [place] [address] | | | SERVICES, CORE | PARK [...] | + + + + + | [facility] | [address] | [place] [address] | | | SERVICES, CORE | DANO [...] [facility] | [address] | [place] [address] | | | SERVICES, CORE | PARK [...] [facility] | [address] | [place] [address] | | | SERVICES, CORE | PARK [...] | | | LABORATORY | | | CANADIAN | | | SERVICES, | | | [...] the MDRD equation recommended by the | [facility] | | National Kidney Disease Education [...] [facility] | [address] | [place] [address] | | | SERVICES, CORE | DANO [...] [facility] - | [address], | [place] [address] | | | IMMUNOGENETICS/TRANS | [address] [...] | [facility] - | [address] | [place] [address] | | | IMMUNOGENETICS/TRANS | [address] [...] [facility] - | [address] | [place] [address] | | | IMMUNOGENETICS/TRANS | [address] [...] + + | [facility] - | [address] | [place] [address] | | | IMMUNOGENETICS/TRANS | [address] [...] [facility] - | [address], | [place] [address] | | | IMMUNOGENETICS/TRANS | [address] [...] + + | [facility] - | [address] | [place] [address] | | | IMMUNOGENETICS/TRANS | [address] [...]
--- OUTSIDE RECORDS SUMMARY | ~2019-12-22 | XMS | Encounter Summary ---
Demographics + + + | Address | [address] | | | [place] [address] | + + + | Home Phone [...] [place], [place] | | | | | [address] | | + + + + + | Misty Boateng | ECON | [address] | | | | | [place], [place] | | | | | [address] | | + + + + + Care Team Providers + +------+ + | Care Radio Equipment Installer Name | Role | Phone | + +------+ + PCP | Unavailable | + +------+ + Encounter Details +--------+ + + + + | Date | Type | Department | Care Team | Description | +--------+ + + + + | 12/02/ | Hospital | [facility] | Conversion | Migraine without | | 2016 | Encounter | [facility] MRI | Transaction, | aura and without | | | | [address] | Provider Unknown | status migrainosus, | | | | [place], [place] | | not intractable; | | | | [address] | (Fax) | 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 Cgrh-cw-nglvcs intracranial MRA, without contrast | | | [...] with some FLAIR artifact in typical distributions Eaqe-pu-wkpira | | | intracranial MRA reveals a very diminutive right vertebral artery, | | | there is some basilar contribution, but not much. Going back to the CT | | | angiogram from April 2002-this is stable. The posterior | | | communicating vessels are either very diminutive or absent. There | | | is good symmetric vyxg-xb-evkarf flow in the carotid siphons, and the [...] of the | | brain/intracranial contents 2. Szli-uh-htraep intracranial MRA, without contrast No | | [...] with some FLAIR artifact in typical distributions Uhko-ck-zeuxmo intracranial | | MRA reveals a very diminutive right vertebral artery, there is some basilar | | contribution, but not much. Going back to the CT angiogram from April 2002-this is | | stable. The posterior communicating vessels are either very diminutive or absent. There | | is good symmetric hgrp-ey-xxpdrx flow in the carotid siphons, and the [...]
--- OUTSIDE RECORDS SUMMARY | ~2019-12-22 | XMS | Encounter Summary ---
Demographics + + + | Address | [address] [place] [address] | | | [place] [address] | + + + | Home Phone [...] Team Providers + +------+ + | Care Datastage Consultant Name | Role | Phone | [...] | | | | | kidney | [place] | [address] [facility] | | | | | disease, | Ciara Urbina | [address] | | | | | stage 4 | Nephrology | [address] [place], | | | | | (severe) | [address] | [place] | | | | | Illness, | [address] | [address] | | | | | unspecified | [address] | Phone: | | | | | | Ciara Urbina, | [phone] | | | | | | [place] [address] | Fax: | | | | | | Phone: | [phone] | | | | | | [phone] | | | | | | | Fax: | | | | | | | [phone] | | +--------+--------+ + + + + Encounter Details +--------+ + + + + | Date | Type | Department | Care Team | Description | +--------+ + + + + | 09/06/ | Hospital | Diagnostic | | | | 2015 | Encounter | Radiology at [facility] | | | | | | [address] | | | | | | Loop Physician's | | | | | | Michelle, [address] [place] [address] | | | | | | [place], [place] | | | | | | [address] | | | | | | [phone] | | | +--------+ + + + [...] | | | PST | (moderate) ([facility]) | results section. | | | | [...]
--- OUTSIDE RECORDS SUMMARY | ~2019-12-22 | XMS | Encounter Summary ---
Demographics + + + | Address | [address] [place] [address] | | | [place] [address] | + + + | Home Phone [...] Team Providers + +------+ + | Care Principal Consultant Name | Role | Phone | [...] | Surgery Services at | Kait Barrios [place], | | | | | [facility] | [place] [address] | | | | | [address] Mailcode: | [phone] | | | | | [facility] | | | | | | and Healing, | | | | | | Building [address] | | | | | | [place], [place] | | | | | | [address] | | | | | | [phone] | | | +--------+ + + + [...]
--- OUTSIDE RECORDS SUMMARY | ~2019-12-22 | XMS | Encounter Summary ---
Demographics + + + | Address | [address] [place] [address] | | | [place] [address] | + + + | Home Phone [...] + + | Author | [facility] | + + + | Organization | [facility] | + + + | Address | Unknown | + + + | Phone | Unavailable | + + + Support + + +---------+ + | Name | Relationship | Address | Phone | + + +---------+ + | Misty Oneill | ECON | Unknown | | + + +---------+ + Care Team Providers + +------+ + | Care Drawer Liner Name | Role | Phone | + +------+ + | Jt Perkins MD | PCP | | + +------+ + Encounter Details +--------+---------+ + + + | Date | Type | Department | Care Team | Description | +--------+---------+ + + + | 11/29/ | Office | Preoperative | Silva Neville, | Preoperative | | 2020 | Visit | Medicine Clinic at | AVIONICS SYSTEMS REPAIRER [address] | examination (Primary | | | | [facility] | [address] | Dx); Crohn's | | | | [address] | [place], [place] | disease with | | | | Mail Code: OC8 | [address] | complication, | | | | [facility] | [phone] | unspecified | | | | and Healing, | | gastrointestinal | | | | Building [address] | | tract location | | | | [place], [place] | | (HCC); Chronic | | | | [address] | | kidney disease, | | | | [phone] | | stage IV (severe) | | [...] Nyla Scruggs CRNA | | | [place], PIPE AND TEST SUPERVISOR; Endotracheal Tube; | | | | | [...] call the Preoperative Medicine Clinic ) immediately. [facility] has a process for determining what next steps you should take, and if there are concerns for possible Covid-19 infection, we will work to determine if it is safe to keep your surgery date. As part of [facility]'s efforts to keep patients and visitors safe, this is the current visitatio n policy--no visitors except in rare circumstances. If you are not having respiratory symptoms or concerning close contacts but would like to c ancel/postpone your surgery, please contact your surgeon directly. More information can be found here: [email or web address]. Pre-surgery "homework" * Unless otherwise instructed by your surgeon, stay active between now and surgery, even st riving to increase your activity levels if you can (ex. taking at least one walk daily, even around the block). This can help speed your surgery recovery. Surgery check-in location: [address], 1st Floor [facility] Surgery Check in Time: you will receive a call 1-3 business days before your surgery confi rming your exact arrival/check-in time for your surgery day. We know that planning for surg joce can be stressful and involve a lot of family/friend/transportation coordination as well as hotel arrangements. The Preoperative Medicine Clinic does not have access to check in [facility], and we encourage you to contact your [...] ch as Uber/Lyft), or public transportation. An Uber/Lyft/warehouse associate driver does not count as the responsible [...] it is after office hours, call the [facility] hydroelectric station operator chief at [phone] and ask them to page him or h er. Service animals Not allowed in the following areas: ? 6A ? 11B PCU ? [facility] Pre/Post-op ? [facility] During Covid-19 Operations: Visitor guidelines: No [...] Procedure/Date: LEFT PAROTIDECTOMY 12/05/2019 Proposed Procedure Location: [facility] The patients encounter was accomplished via a telephone call today due to COVID-19 precauti onary measures to limit the patient's unnecessary exposure. Any neccessary exam, labs, and EKG not done due to encounter being a telephone call, and ma y need to be performed on day of surgery (unless done at [facility] with Covid testing). Patient identity verified [...] re anesthetized. 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 Darnell Yee in [facility] (acute interstitial nephritis) 2008 Anemia Ankylosing [...] ([facility]) MDRD6 19.28 on 06/21/2015 Crohn's disease of colon ([facility]) 2008 sparing rectum and sigmoid colon; [...] and foot process effacement Kidney biopsy 06/11/2015 [facility] pathology report Wrist fracture surgery [...] failure progressed Drug use: No PHYSICAL EXAM: [facility] Visit conducted as a phone visit [...] needed: no Additional optimization needed: no Venue: [facility] is appropriate based on this patients comorbid conditions and lyz-vo-nvototk care coordination needs Medication management recommendations: The [...] patient's care. JASVIR Stack [facility] [address] [place] [address] [phone] (fax) documented in this encounter Plan of [...]
--- OUTSIDE RECORDS SUMMARY | ~2019-12-22 | XMS | Encounter Summary ---
Demographics + + + | Address | [address] [place] [address] | | | [place] [address] | + + + | Home Phone | | + + + | Preferred Language | Unknown | + + + | Marital Status | | + + + | Methodist Affiliation | CHR | + + + | Race | White | + + + | Ethnic Group | Not or | + + + Author + + + | Author | [facility] | + + + | Organization | [facility] | + + + | Address | Unknown | + + + | Phone | Unavailable | + + + Support + + +---------+ + | Name | Relationship | Address | Phone | + + +---------+ + | Misty Oneill | ECON | Unknown | | + + +---------+ + Care Team Providers + +------+ + | Care Fur Pointer Name | Role | Phone | + [...] 2015 | | Transplant Services | RN [address] [facility] | Workup (Intake) | | | | [address] | [address] | | | | | Kait Barrios [place], | [place], [place] | | | | | [place] [address] | [address] | | | | | [phone] | | | +--------+ + + + [...]
--- OUTSIDE RECORDS SUMMARY | ~2019-12-22 | XMS | Encounter Summary ---
Demographics + + + | Address | [address] | | | [place] [address] | + + + | Home Phone [...] [place], [place] | | | | | [address] | | + + + + + | Misty Boateng | ECON | [address] | | | | | [place], [place] | | | | | [address] | | + + + + + Care Team Providers + +------+ + | Care Director Of Market Intelligence Name | Role | Phone | + [...] | NEPHROLOGY [address] | [address] | disease) stage 4, | | | | [address] | [address] [place] | GFR 15-29 ml/min | | | | [place], [place] | [place] [address] | ([facility]) (Primary Dx) | | | | [address] | [phone] | | | | | [phone] | | | +--------+ + + + [...] 03/20/ | Office | Nephrology | Christine Martienz, | | | 2019 | Visit | | MD Monica Manzanares | | | | | | [address] [place] | | | | | | [place] [address] | | | | | | [phone] | | | | | | | [...]
--- OUTSIDE RECORDS SUMMARY | ~2019-12-22 | XMS | Encounter Summary ---
Demographics + + + | Address | [address] | | | [place] [address] | + + + | Home Phone [...] [place], [place] | | | | | [address] | | + + + + + | Misty Boateng | ECON | [address] | | | | | [place], [place] | | | | | [address] | | + + + + + Care Team Providers + +------+ + | Care Wood Boatbuilder Apprentice Name | Role | Phone | [...] | NEPHROLOGY [address] | [address] | | | | | [address] | [address] [place] | | | | | [place], [place] | [place] [address] | | | | | [address] | [phone] | | | | | [phone] | | | +--------+ + + + [...] | | | | | [place] [address] | | | | | | [phone] | | | | | | | [...]
--- OUTSIDE RECORDS SUMMARY | ~2019-12-22 | XMS | Encounter Summary ---
Demographics + + + | Address | [address] | | | [place] [address] | + + + | Home Phone [...] [place], [place] | | | | | [address] | | + + + + + | Misty Boateng | ECON | [address] | | | | | [place], [place] | | | | | [address] | | + + + + + Care Team Providers + +------+ + | Care Management Consulting Name | Role | Phone | + [...] NEPHROLOGY [address] | [address] | | | | | [address] | [address] [place] | | | | | [place], [place] | [place] [address] | | | | | [address] | [phone] | | | | | [phone] | | | +--------+ + + + [...] | | | | | [place] [address] | | | | | | [phone] | | | | | | | [...] 1.007 | | EXTERNAL | | | [place], | | | LAB | | | [...]
--- OUTSIDE RECORDS SUMMARY | ~2019-12-22 | XMS | Encounter Summary ---
Demographics + + + | Address | [address] [place] [address] | | | [place] [address] | + + + | Home Phone [...] Providers + +------+ + | Care Director Game Name | Role | Phone | + [...] | | | | | Kait Barrios [place], | [place], [place] | | | | | [place] [address] | [address] | | | | | [phone] | | | +--------+ + + + [...]
--- OUTSIDE RECORDS SUMMARY | ~2019-12-22 | XMS | Encounter Summary ---
Demographics + + + | Address | [address] | | | [place] [address] | + + + | Home Phone [...] + | Author | [facility] | | | and [place] | + + + | Organization | [facility] | | | and [place] | + + + | Address | Unknown | + + + | Phone | Unavailable | + + + Support + + + + + | Name | Relationship | Address | Phone | + + + + + | Ryan Oneill | ECON | [place], [place] | | | | | [address] | | + + + + + | Misty Boateng | ECON | [address] | | | | | [place] | | | | | [address] | | + + + + + Care Team Providers + +------+ + | Care High Rigger Name | Role | Phone | [...] RAEGAN (acute | Christine W, | [address] | | | | | kidney | MD [address] | [place], | | | | | injury) | [address] | [place] [address] | | | | | (HCC) | [address] [place] | Phone: | | | | | Procedures | [place], [place] | [phone] | | | | | [place] Guided | [address] | Fax: | | | | | Biopsy Renal | Phone: | [phone] | | | | | [place] BIOPSY | [phone] | | | | | | OF | Fax: | | | | | | KIDNEY,PERCU | [phone] | | | | | | TANEOUS CA | | | | | | | [...] 06/11/ | [facility] | [facility] | Jose Juan Yanes MD | RAEGAN (acute kidney | | 2014 | Encounter | MED CTR OR PRE OP | [address] | injury) ([facility]) | | | | [address] [place] | [place] | | | | | [place] [address] | [address] | | | | | [phone] | [phone] | | | | | | | [...] Rozina Baird, peritoneal dialys is nurse, at [phone]. documented in this encounter Medications at Time [...] [address] | | | | | | [place] [address] | | | | | | [phone] | | | | | | | [...] mL/min/1.73m2 | [facility] | | | [facility] | RATE,ESTIMATED | | MEDICAL | | | | mL/min/1.12o3Kxur than | | CENTER - | | [...] + | [facility] | [address] | [place] | [phone] | | [facility] | | [address] | | | - LABORATORY | | [...] [address] | [place] | [phone] | | [facility] | | [address] | | | - LABORATORY | | [...] COMPARISON: None. PROTOCOL: After explaining the | [facility] | | risks and benefits [...] | + + + + + | [facility] | [address] | [place] | [phone] | | [facility] | | [address] | | | - IMAGING | | [...] [address] | [place] | [phone] | | [facility] | | [address] | | | - LABORATORY | | [...]
--- OUTSIDE RECORDS SUMMARY | ~2019-12-22 | XMS | Encounter Summary ---
Demographics + + + | Address | [address] | | | [place] [address] | + + + | Home Phone [...] [place], [place] | | | | | [address] | | + + + + + | Misty Boateng | ECON | [address] | | | | | [place] | | | | | [address] | | + + + + + Care Team Providers + +------+ + | Care Dynamite Shooter Name | Role | Phone | + [...] | NEPHROLOGY [address] | [address] | | | | | [address] | [address] [place] | | | | | [place], [place] | [place] [address] | | | | | [address] | [phone] | | | | | [phone] | | | +--------+ + + + [...] 2020 | Visit | | [address] | | | | | | [address] [place] | | | | | | [place] [address] | | | | | | [phone] | | | | | | | | +--------+---------+ + + + documented as of this encounter Procedures + +--------+ + + + | Procedure Name | Priori | Date/Time | Associated Diagnosis | Comments | | | ty | | | | + +--------+ + + + | EXTERNAL LAB: ANIVAL | Routin | 05/27/2018 | | Results [...] | EXTERNAL LAB: CARBON | Routin | 05/27/2018 | | Results [...] | EXTERNAL LAB: SODIUM | Routin | 05/27/2018 | | Results [...] | EXTERNAL LAB: EGFR | Routin | 05/27/2018 | | Results [...] + | URINALYSIS WITH | Routin | 05/27/2018 | | Results for this | | MICROSCOPIC | e | | | procedure are in the | | | | | | results section. | + +--------+ + + + documented in this encounter Results Urinalysis With Microscopic (05/27/2018) + + + + + + [...] | Urine | + + External Lab: BUN (05/27/2018) + +--------+ + + + | Component | Value | Ref Range | Performed | Pathologist | | | | | At | Signature | + +--------+ + + + | BUN, | 27 (A) | 6 - 23 [...] + +---------+ + + External Lab: Glucose (05/27/2018) + +---------+ + + + | Component | Value | Ref Range | Performed | Pathologist | | | | | At | Signature | + +---------+ + + + | Glucose, | 106 (A) | 70 - 100 | EXTERNAL [...] + +---------+ + + External Lab: Albumin (05/27/2018) + +-------+ + + + | Component [...] + +---------+ + + External Lab: Phosphorus (05/27/2018) + +-------+ + + + | Component [...] + +---------+ + + External Lab: Calcium (05/27/2018) + +-------+ + + + | Component | Value | Ref Range | Performed | Pathologist | | | | | At | Signature | + +-------+ + + + | Calcium, | 9.4 | 8.5 - 10.3 | EXTERNAL | | | External | [...] +---------+ + + External Lab: Carbon Dioxide (05/27/2018) + +-------+ + + + | Component [...] + +---------+ + + External Lab: Chloride (05/27/2018) + +-------+ + + + | Component [...] + +---------+ + + External Lab: Potassium (05/27/2018) + +-------+ + + + | Component [...] + +---------+ + + External Lab: Sodium (05/27/2018) + +-------+ + + + | Component [...] + +---------+ + + External Lab: Urinalysis (05/27/2018) + + + + + + [...] + + + | UA Specific | 1.012 | | EXTERNAL | | | [place], | | | LAB | | | [...] + +---------+ + + External Lab: eGFR (05/27/2018) + +-------+ + + + | Component [...] + +---------+ + + External Lab: Creatinine (05/27/2018) + + + + + + | Component | Value | Ref Range | Performed | Pathologist | | | | | At | Signature | + + + + + + | Creatinine, | 2.97 (A) | 0.6 - 1.35 | EXTERNAL [...]
--- OUTSIDE RECORDS SUMMARY | ~2019-12-22 | XMS | Encounter Summary ---
Demographics + + + | Address | [address] | | | [place] [address] | + + + | Home Phone | | + + + | Preferred Language | Unknown | + + + | Marital Status | | + + + | Faith Affiliation | 1041 | + + + [...] [place], [place] | | | | | [address] | | + + + + + | Misty Boateng | ECON | [address] | | | | | [place] | | | | | [address] | | + + + + + Care Team Providers + +------+ + | Care Product Test Specialist Name | Role | Phone | + +------+ + | Jt Perkins MD | PCP | | + +------+ + Encounter Details +--------+ + + + + | Date | Type | Department | Care Team | Description | +--------+ + + + + | 05/03/ | Orders Only | [facility] | Conversion | | | 2013 | | NEPRHOLOGY [place] | Transaction, | | | | | [address] | Provider Unknown | | | | | [address] [place], [place] | [phone] | | | | | [address] | | | | | | [phone] | | | +--------+ + + + [...] | | | | | [place] [address] | | | | | | [phone] | | | | | | | [...]
--- OUTSIDE RECORDS SUMMARY | ~2019-12-22 | XMS | Encounter Summary ---
Demographics + + + | Address | [address] | | | [place] [address] | + + + | Home Phone [...] [place], [place] | | | | | [address] | | + + + + + | Misty Boateng | ECON | [address] | | | | | [place] | | | | | [address] | | + + + + + Care Team Providers + +------+ + | Care Mine Safety Director Name | Role | Phone | [...] | | | nephritis | [address] | | | | | Procedures | [place] | [address] [place] | | | | | [place] OFFICE | [address] | [place] | | | | | OUTPATIENT | [place], | [address] Phone: | | | | | VISIT 25 | [place] | [phone] | | | | | MINUTES | [address] | Fax: | | | | | | Phone: | [phone] | | | | | | [phone] | | | | | | | Fax: | | | | | | | [phone] | | +--------+--------+ + + + + Encounter Details +--------+---------+ + + + | Date | Type | Department | Care Team | Description | +--------+---------+ + + + | 05/29/ | Office | [facility] | Christine Martinez, | Acute renal failure | | 2015 | Visit | NEPHROLOGY [address] | [address] | superimposed on | | | | [address] | [address] [place] | stage 3 chronic | | | | [place], [place] | [facility] [address] | kidney disease (HCC) | | | | [address] | [phone] | (Primary Dx); | | | | [phone] | | Crohn's disease with | | [...] PM PSTStop Losartan. Labs on 06/01/15, at [facility]. Non-fasting. documented in this encounter Progress [...] pt had returned from a trip to [facility], and became ill. He was given various [...] and and methotrexate, and was followed by [facility] rheumatology. Later, his immunosup pression regimen was [...] history of kidney stones. 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
--- OUTSIDE RECORDS SUMMARY | ~2019-12-22 | XMS | Encounter Summary ---
Demographics + + + | Address | [address] [place] [address] | | | [place] [address] | + + + | Home Phone [...] Team Providers + +------+ + | Care Midwife Name | Role | Phone | + [...] [place] | | | | | | [phone] | | | +--------+ + + + [...]
--- OUTSIDE RECORDS SUMMARY | ~2019-12-22 | XMS | Encounter Summary ---
Demographics + + + | Address | [address] | | | [place] [address] | + + + | Home Phone [...] [place], [place] | | | | | [address] | | + + + + + | Misty Boateng | ECON | [address] | | | | | [place], [place] | | | | | [address] | | + + + + + Care Team Providers + +------+ + | Care Mottler Machine Feeder Name | Role | Phone | [...] | NEPHROLOGY [address] | [address] | disease, stage V | | | | [address] | [address] [place] | ([facility]) (Primary Dx) | | | | [place], [place] | [place] [address] | | | | | [address] | [phone] | | | | | [phone] | | | +--------+ + + + [...] | | | | | [place] [address] | | | | | | [phone] | | | | | | | [...]
--- OUTSIDE RECORDS SUMMARY | ~2019-12-22 | XMS | Encounter Summary ---
Demographics + + + | Address | [address] | | | [place] [address] | + + + | Home Phone [...] [place], [place] | | | | | [address] | | + + + + + | Misty Boateng | ECON | [address] | | | | | [place], [place] | | | | | [address] | | + + + + + Care Team Providers + +------+ + | Care Machine Pie Maker Name | Role | Phone | [...] | NEPHROLOGY [address] | [address] | | | | | [address] | [address] [place] | | | | | [place], [place] | [place] [address] | | | | | [address] | [phone] | | | | | [phone] | | | +--------+ + + + [...] | | | | | [place] [address] | | | | | | [phone] | | | | | | | [...] in this encounter Results External Lab: ANIVAL (06/21/2015) + +--------+ + + + | [...]
--- OUTSIDE RECORDS SUMMARY | ~2019-12-22 | XMS | Encounter Summary ---
Demographics + + + | Address | [address] | | | [place] [address] | + + + | Home Phone | | + + + | Preferred Language | Unknown | + + + | Marital Status | | + + + | Spiritism Affiliation | 1041 | + + + [...] [place], [place] | | | | | [address] | | + + + + + | Misty Boateng | ECON | [address] | | | | | [place], [place] | | | | | [address] | | + + + + + Care Team Providers + +------+ + | Care Winch Derrick Operator Name | Role | Phone | + +------+ + PCP | Unavailable | + +------+ + Encounter Details +--------+ + + + + | Date | Type | Department | Care Team | Description | +--------+ + + + + | 06/20/ | Documentati | [facility] [place] | Christine Martinez W, | | | 2015 | on | NEPHROLOGY [address] | [address] | | | | | [address] | [address] [place] | | | | | [place], [place] | [place] [address] | | | | | [address] | [phone] | | | | | [phone] | | | +--------+ + + + [...] encounter Progress Notes Christine Martinez MD - 06/20/2015 4:52 PM PSTReceived final report of kidney biopsy, perf ormed on 06/11/15, from [facility] pathology. Unfortunately, pt had advanced nephrosclerosis with chronic interstitial inflammation. On light microscopy, there was 21 sclerotic glomeruli and short segment of cortex with two norm al glomeruli; electron microscopy, all of the 16 glomeruli were densely sclerotic. I spoke with patient on the telephone, and informed him of chronic, advanced disease of his kidneys. Pt has been taking prednisone 60 mg QDAY since 06/11/15. -Will obtain renal panel and CBC this week -If no improvement in kidney function, will taper off prednisone, and have pt restart his b udesonide for Crohn's -Discussed with pt about referral for PD catheter placement; pt would like to go to [facility] -Will send a referral for kidney transplant to [facility]; last eGFR was 15 mL/min -Will connect pt with PD RN, Rozina, in [place] Christine Martinez MD documented in this encounter Plan of Treatment +--------+---------+ + + + | Date | Type | Specialty | Care Team | Description | +--------+---------+ + + + | 03/20/ | Office | Nephrology | Christine Martinez, | | | 2019 | Visit | | MD [address] | | | | | | [address] [place] | | | | | | [place] [address] | | | | | | [phone] | | | | | | | | +--------+---------+ + + + documented as of this encounter Visit Diagnoses + + | Diagnosis | + + | CKD (chronic kidney disease) stage 4, GFR 15-29 ml/min ([facility]) - Primary Chronic kidney | | disease, Stage IV (severe) | + + | 

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
--- OUTSIDE RECORDS SUMMARY | ~2019-12-22 | XMS | Encounter Summary ---
Demographics + + + | Address | [address] [place] [address] | | | [place] [address] | + + + | Home Phone [...] Team Providers + +------+ + | Care Bracelet Former Name | Role | Phone | [...] | Surgery Services at | [address], | | | | | [address] | [place] [address] | | | | | [address] | [phone] | | | | | Physician's | | | | | | Pavilion, 2nd floor | | | | | | [place], [place] | | | | | | [address] | | | | | | [phone] | | | +--------+ + + + [...]
--- OUTSIDE RECORDS SUMMARY | ~2019-12-22 | XMS | Encounter Summary ---
Demographics + + + | Address | [address] | | | [place] [address] | + + + | Home Phone [...] + + | Author | [facility] | | | and [place] | + + + | Organization | [facility] | | | and [place] | + + + | Address | Unknown | + + + | Phone | Unavailable | + + + Support + + + + + | Name | Relationship | Address | Phone | + + + + + | Ryan Oneill | ECON | [place], [place] | | | | | [address] | | + + + + + | Misty Boateng | ECON | [address] | | | | | [place] | | | | | [address] | | + + + + + Care Team Providers + +------+ + | Care Mortgage Loan Originator Name | Role | Phone | + [...] | | | nephritis | [address] | [place] [address] | | | | | Procedures | [place] | [address] [place] | | | | | [place] OFFICE | [address] | [place] | | | | | OUTPATIENT | [place], | [address] Phone: | | | | | VISIT 25 | [place] | [phone] | | | | | MINUTES | [address] | Fax: | | | | | | Phone: | [phone] | | | | | | [phone] | | | | | | | Fax: | | | | | | | [phone] | | +--------+--------+ + + + + Encounter Details +--------+---------+ + + + | Date | Type | Department | Care Team | Description | +--------+---------+ + + + | 09/17/ | Office | [facility] | Christine Martinez, | CKD (chronic kidney | | 2016 | Visit | NEPHROLOGY [address] | [address] | disease) stage 4, | | | | [address] | [address] [place] | GFR 15-29 ml/min | | | | [place], [place] | [facility] [place] [address] | (HCC) (Primary Dx); | | | | [address] | [phone] | Interstitial | | | | [phone] | | nephritis chronic; | | | [...] consultation with Dr. Randall (vascular surgery) at [facility] for placement of peritoneal dialysis catheter. [...] 15-29 ml/min ([facility]) N18.4 585.4 Due to chronic interstitial nephritis. Pt is more symptomatic - tiredness. -Surgery consultation this week for peritoneal dialysis catheter placement -Pt was evaluated by [facility] Kidney Transplant team; awaiting final decision regarding listing -Will arrange for admission to [facility] PD clinic once catheter is placed. 2. Interstitial nephritis chronic N11.9 582.89 3. HTN (hypertension), benign I10 401.1 Clinic BP is improved since starting Carvedilol. Not edematous. -No change for now. -Monitor home BP reading daily. 4. Crohn's disease with complication, unspecified gastrointestinal tract location ([facility]) K50 .919 555.9 On Humira. Pt c/o [...] | | | | | [address] [facility] | | | | | | [place] [address] | | | | | | [phone] | | | | | | | [...] 1.001 - 1.030 | | | | [place], | | | | | | UA, [...]
--- OUTSIDE RECORDS SUMMARY | ~2019-12-22 | XMS | Encounter Summary ---
Demographics + + + | Address | [address] | | | [place] [address] | + + + | Home Phone [...] [place], [place] | | | | | [address] | | + + + + + | Misty Boateng | ECON | [address] | | | | | [place] | | | | | [address] | | + + + + + Care Team Providers + +------+ + | Care Shotweld Operator Name | Role | Phone | [...] | | | nephritis | [address] | [place] [address] | | | | | Procedures | [place] | [address] [place] | | | | | [place] OFFICE | [address] | [facility] [place] | | | | | OUTPATIENT | [place], | [address] Phone: | | | | | VISIT 25 | [place] | [phone] | | | | | MINUTES | [address] | Fax: | | | | | | Phone: | [phone] | | | | | | [phone] | | | | | | | Fax: | | | | | | | [phone] | | +--------+--------+ + + + + [...] | | [address] | [place], [address] | (Primary Dx) | | | | [place], [place] | [place], [place] | | | | | [address] | [address] | | | | | [phone] | | | +--------+ + + + [...] [employer]. 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 : [place] Polo Lorenzo MD, Ren[facility], [facility] documented in thi s encounter [...] | | | | | [place] [address] | | | | | | [phone] | | | | | | | | +--------+---------+ + + + documented as of this encounter Visit Diagnoses + + | Diagnosis | + + | End stage renal disease (HCC) - Primary End stage renal disease | + + documented in this encounter
--- OUTSIDE RECORDS SUMMARY | ~2019-12-22 | XMS | Encounter Summary ---
Demographics + + + | Address | [address] | | | [place] [address] | + + + | Home Phone [...] [place], [place] | | | | | [address] | | + + + + + | Misty Boateng | ECON | [address] | | | | | [place] | | | | | [address] | | + + + + + Care Team Providers + +------+ + | Care Subwarehouse Supervisor Name | Role | Phone | [...] | NEPHROLOGY [address] | [address] | | | | | [address] | [address] [place] | | | | | [place], [place] | [place] [address] | | | | | [address] | [phone] | | | | | [phone] | | | +--------+ + + + [...] 2020 | Visit | | [address] | | | | | | [address] [place] | | | | | | [place] [address] | | | | | | [phone] | | | | | | | [...] 1.012 | | EXTERNAL | | | [place], | | | LAB | | | [...]
--- OUTSIDE RECORDS SUMMARY | ~2019-12-22 | XMS | Encounter Summary ---
Demographics + + + | Address | [address] | | | [place] [address] | + + + | Home Phone [...] [place], [place] | | | | | [address] | | + + + + + | Misty Boateng | ECON | [address] | | | | | [place] | | | | | [address] | | + + + + + Care Team Providers + +------+ + | Care Senior Statistician Name | Role | Phone | + [...] NEPHROLOGY [address] | MD [address] | | | | | [address] | [address] [facility] | | | | | [place], [place] | [place] [address] | | | | | [address] | [phone] | | | | | [phone] | | | +--------+--------+ + + + [...] | | | | | [place] [address] | | | | | | [phone] | | | | | | | | +--------+---------+ + + + documented as of this encounter Visit Diagnoses Not on filedocumented in this encounter"
--- OUTSIDE RECORDS SUMMARY | ~2019-12-22 | XMS | Encounter Summary ---
Demographics + + + | Address | [address] | | | [place] [address] | + + + | Home Phone [...] [place], [place] | | | | | [address] | | + + + + + | Misty Boateng | ECON | [address] | | | | | [place], [place] | | | | | [address] | | + + + + + Care Team Providers + +------+ + | Care Systems Development Manager Name | Role | Phone | [...] | NEPHROLOGY [address] | [address] | | | | | [address] | [address] [place] | | | | | [place], [place] | [place] [address] | | | | | [address] | [phone] | | | | | [phone] | | | +--------+ + + + [...] kidney biopsy, perf ormed on 06/11/15, from [facility] pathology. Unfortunately, pt had advanced nephrosclerosis [...] placement; pt would like to go to [facility] -Will send a referral for kidney transplant to [facility]; last eGFR was 15 mL/min -Will connect pt with PD RN, Roz[place], in [place] Christine Martinez MD documented in this encounter Plan of Treatment +--------+---------+ + + + | Date | Type | Specialty | Care Team | Description | +--------+---------+ + + + | 03/20/ | Office | Nephrology | Christine Martinez, | | | 2019 | Visit | | MD Monica Manzanares | | | | | | [address] [place] | | | | | | [place] [address] | | | | | | [phone] | | | | | | | | +--------+---------+ + + + documented as of this encounter Visit Diagnoses + + | Diagnosis | + + | CKD (chronic kidney disease) stage 4, GFR 15-29 ml/min ([facility] - Primary Chronic kidney | | disease, Stage IV (severe) | + + | 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
--- OUTSIDE RECORDS SUMMARY | ~2019-12-22 | XMS | Encounter Summary ---
Demographics + + + | Address | [address] [place] [address] | | | [place] [address] | + + + | Home Phone [...] Team Providers + +------+ + | Care Adjunct History Instructor Name | Role | Phone | [...] | | | | | Kait Barrios [place], | [place], [place] | | | | | [place] [address] | [address] | | | | | [phone] | | | +--------+ + + + [...]
--- OUTSIDE RECORDS SUMMARY | ~2019-12-22 | XMS | Encounter Summary ---
Demographics + + + | Address | [address] | | | [place] [address] | + + + | Home Phone [...] [place], [place] | | | | | [address] | | + + + + + | Misty Boateng | ECON | [address] | | | | | [place], [place] | | | | | [address] | | + + + + + Care Team Providers + +------+ + | Care Sas Sql Developer Name | Role | Phone | [...] NEPHROLOGY [address] | M, DO [address] | | | | | [address] | [address], [address] | | | | | [place], [place] | [place], [place] | | | | | [address] | [address] | | | | | [phone] | | | +--------+ + + + [...] | | | | | [place] [address] | | | | | | [phone] | | | | | | | | +--------+---------+ + + + documented as of this encounter Visit Diagnoses Not on filedocumented in this encounter"
--- OUTSIDE RECORDS SUMMARY | ~2019-12-22 | XMS | Encounter Summary ---
Demographics + + + | Address | [address] [place] [address] | | | [place] [address] | + + + | Home Phone [...] Team Providers + +------+ + | Care White Shoe Ragger Name | Role | Phone | + [...] | | | | | Kait Barrios [place], | | | | | | [place] [address] | | | +--------+ + + + [...] + + | [facility] - | [address] [facility] [address] | [place] [address] | | | IMMUNOGENETICS/TRANS | [address] | | | | [facility] | | | | + + + + + documented in this encounter Visit Diagnoses + + | Diagnosis | + + | End stage renal disease (HCC) End stage renal disease | + + documented in this encounter"
--- OUTSIDE RECORDS SUMMARY | ~2019-12-22 | XMS | Encounter Summary ---
Demographics + + + | Address | [address] | | | [place] [address] | + + + | Home Phone | | + + + | Preferred Language | Unknown | + + + | Marital Status | | + + + | Taoism Affiliation | [id number] | + + + | Race | Unknown | + + + | Ethnic Group | Unknown | + + + Author + + + | Author | [facility] | | | and [place] | + + + | Organization | [facility] | | [...] [place], [place] | | | | | [address] | | + + + + + Care Team Providers + +------+ + | Care Director Of Online Merchandising Name | Role | Phone | + [...] [address] | | | | | [address] | [address] [facility], | | | | | [place], [place] | [place] [address] | | | | | [address] | [phone] | | | | | [phone] | | | +--------+ + + + [...] | | | | | [place] [address] | | | | | | [phone] | | | | | | | | +--------+---------+ + + + documented as of this encounter Visit Diagnoses Not on filedocumented in this encounter"
--- OUTSIDE RECORDS SUMMARY | ~2019-12-22 | XMS | Encounter Summary ---
Demographics + + + | Address | [address] [place] [address] | | | [place] [address] | + + + | Home Phone [...] Team Providers + +------+ + | Care Sighter Name | Role | Phone | + [...] | | | | | [place], | [place], [place] | | | | | [place] [address] | [address] | | | | | [phone] | | | +--------+ + + + [...]
--- OUTSIDE RECORDS SUMMARY | ~2019-12-22 | XMS | Encounter Summary ---
Demographics + + + | Address | [address] | | | [place] [address] | + + + | Home Phone [...] [place], [place] | | | | | [address] | | + + + + + | Misty Boateng | ECON | [address] | | | | | [place] | | | | | [address] | | + + + + + Care Team Providers + +------+ + | Care Liaison Engineer Name | Role | Phone | [...] NEPHROLOGY [address] | MD [address] | | | | | [address] | [address] [place] | | | | | [place] | [place] [address] | | | | | [address] | [phone] | | | | | [phone] | | | +--------+ + + + [...] | | | | | [place] [address] | | | | | | [phone] | | | | | | | | +--------+---------+ + + + documented as of this encounter Visit Diagnoses Not on filedocumented in this encounter"
--- OUTSIDE RECORDS SUMMARY | ~2019-12-22 | XMS | Encounter Summary ---
Demographics + + + | Address | [address] [place] [address] | | | [place] [address] | + + + | Home Phone [...] Team Providers + +------+ + | Care Harness Mender Name | Role | Phone | [...] | Surgery Services at | Kait Barrios [place], | | | | | [facility] [address] | [place] [address] | | | | | Ave Mailcode: | [phone] | | | | | [facility] | | | | | | and Healing, | | | | | | [address] | | | | | | [place], [place] | | | | | | [address] | | | | | | [phone] | | | +--------+ + + + [...]
--- OUTSIDE RECORDS SUMMARY | ~2019-12-22 | XMS | Encounter Summary ---
Demographics + + + | Address | [address] [place] [address] | | | [place] [address] | + + + | Home Phone [...] Team Providers + +------+ + | Care Corner Cutter Name | Role | Phone | [...] | | | Surgery Services at | [place], | | | | | [facility] [address] | [place] [address] | | | | | [address] Mailcode: | [phone] | | | | | [facility] | | | | | | and Healing, | | | | | | [address] | | | | | | [place], [place] | | | | | | [address] | | | | | | [phone] | | | +--------+ + + + [...]
--- OUTSIDE RECORDS SUMMARY | ~2019-12-22 | XMS | Encounter Summary ---
Demographics + + + | Address | [address] [place] [address] | | | [place] [address] | + + + | Home Phone [...] Providers + +------+ + | Care Director Perioperative Name | Role | Phone | + +------+ + | Jt Perkins MD | PCP | | + +------+ + Encounter Details +--------+ + + + + | Date | Type | Department | Care Team | Description | +--------+ + + + + | 12/04/ | Procedure | [facility] | | | | 2019 | Pass | [facility] | | | | | | and Healing Surgery | | | | | | Center Admitting | | | | | | Desk Located on the | | | | | | 4th floor [address] | | | | | | [address] [place], | | | | | | [place] [address] | | | +--------+ + + + [...]
--- OUTSIDE RECORDS SUMMARY | ~2019-12-22 | XMS | Encounter Summary ---
Demographics + + + | Address | [address] | | | [place] [address] | + + + | Home Phone [...] [place], [place] | | | | | [address] | | + + + + + | Misty Boateng | ECON | [address] | | | | | [place], [place] | | | | | [address] | | + + + + + Care Team Providers + +------+ + | Care Layout Technician Name | Role | Phone | [...] NEPHROLOGY [address] | MD [address] | benign (Primary Dx); | | | | [address] | [address] [place] | Interstitial | | | | [place], [place] | [place] [address] | nephritis chronic | | | | [address] | [phone] | | | | | [phone] | | | +--------+ + + + [...] PM PSTLabs for nephrology consult sent to [facility] documented in this en counter Plan [...] | | | | | [place] [address] | | | | | | [phone] | | | | | | | [...] 1.011 | | EXTERNAL | | | [place], | | | LAB | | | [...]
--- OUTSIDE RECORDS SUMMARY | ~2019-12-22 | XMS | Encounter Summary ---
Demographics + + + | Address | [address] [place] [address] | | | [place] [address] | + + + | Home Phone [...] Author | [facility] | + + + | Organization | [facility] | + + + | Address | Unknown | + + + | Phone | Unavailable | + + + Support + + +---------+ + | Name | Relationship | Address | Phone | + + +---------+ + | Misty Oneill | ECON | Unknown | | + + +---------+ + Care Team Providers + +------+ + | Care Special Assemblies Supervisor Name | Role | Phone | [...] | | | Surgery Services at | [place], | | | | | [facility] | [place] [address] | | | | | [address] Mailcode: | [phone] | | | | | [facility] | | | | | | and Healing, | | | | | | [address] | | | | | | [place], [place] | | | | | | [address] | | | | | | [phone] | | | +--------+ + + + [...]
--- OUTSIDE RECORDS SUMMARY | ~2019-12-22 | XMS | Encounter Summary ---
Demographics + + + | Address | [address] [place] [address] | | | [place] [address] | + + + | Home Phone [...] Team Providers + +------+ + | Care Feeder/Folder Name | Role | Phone | + +------+ + | Hai Holman MD | PCP | | + +------+ + Reason for Visit + + + | Reason | Comments | + + + | Transplant Form | 6250 | | Update | | + + + Encounter Details +--------+ + + + + | Date | Type | Department | Care Team | Description | +--------+ + + + + | 01/07/ | Abstract | Clinical | Santos Lorenzo, | Transplant Form | | 2015 | | Transplant Services | [address] | Update ( 7260) | | | | [address] | [address] | | | | | Kait Barrios [place], | [place], [place] | | | | | [place] [address] | [address] | | | | | [phone] | | | | | | | [...]
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
--- OUTSIDE RECORDS SUMMARY | ~2019-12-22 | XMS | Encounter Summary ---
Demographics + + + | Address | [address] [place] [address] | | | [place] [address] | + + + | Home Phone [...] Team Providers + +------+ + | Care Tapering Machine Operator Name | Role | Phone [...] | | | | | Kait Barrios [place], | [place], [place] | | | | | [place] [address] | [address] | | | | | [phone] | [phone] | | | | | | | [...] | NON [facility] | | [facility] [id number] [address] | | |[address] | | |[place] [address] | | + + + + +---------+ + + | Performing | Address | City/State/Zipcode | Phone Number | | Organization | | | | + +---------+ + + | NON [facility] | | | | + +---------+ + + documented in this encounter Visit Diagnoses Not on filedocumented in this encounter"
--- OUTSIDE RECORDS SUMMARY | ~2019-12-22 | XMS | Encounter Summary ---
Demographics + + + | Address | [address] [place] [address] | | | [place] [address] | + + + | Home Phone | | + + + | Preferred Language | Unknown | + + + | Marital Status | | + + + | Zoroastrianism Affiliation | CHR | + + + [...] Providers + +------+ + | Care Senior Professional Services Consultant Name | Role | Phone | [...] | | | | | Kait Barrios [place], | [place], [place] | | | | | [place] [address] | [address] | | | | | [phone] | | | +--------+ + + + [...]
--- OUTSIDE RECORDS SUMMARY | ~2019-12-22 | XMS | Encounter Summary ---
Demographics + + + | Address | [address] [place] [address] | | | [place] [address] | + + + | Home Phone [...] Team Providers + +------+ + | Care Therapist Physical Name | Role | Phone | + +------+ + | Jt Perkins MD | PCP | | + +------+ + Encounter Details +--------+ + + + + | Date | Type | Department | Care Team | Description | +--------+ + + + + | 12/04/ | Procedure | [facility] | | | | 2019 | Pass | [facility] | | | | | | and Healing Surgery | | | | | | Center Admitting | | | | | | Desk Located on the | | | | | | 4th floor [address] | | | | | | [address] [place], | | | | | | [place] [address] | | | +--------+ + + + [...]
--- OUTSIDE RECORDS SUMMARY | ~2019-12-22 | XMS | Encounter Summary ---
Demographics + + + | Address | [address] | | | [place] [address] | + + + | Home Phone [...] [place], [place] | | | | | [address] | | + + + + + | Misty Boateng | ECON | [address] | | | | | [place], [place] | | | | | [address] | | + + + + + Care Team Providers + +------+ + | Care Security Systems Administrator Name | Role | Phone | + +------+ + PCP | Unavailable | + +------+ + Encounter Details +--------+ + + + + | Date | Type | Department | Care Team | Description | +--------+ + + + + | 11/19/ | Orders Only | [facility] | Pan Jhaveri MD | Crohn's disease with | | 2015 | | MED CTR XRAY [address] | other complication | | | | [place] | [place] | ([facility]) | | | | [place] [address] | [address] | | | | | [phone] | [phone] | | | | | | | [...] | 2019 | Visit | | MD Moncia Manzanares | | | | | | [address] [place] | | | | | | [place] [address] | | | | | | [phone] | | | | | | | | +--------+---------+ + + + documented as of this encounter Visit Diagnoses + + | Diagnosis | + + | Crohn's disease with other complication | + + documented in this encounter"
--- OUTSIDE RECORDS SUMMARY | ~2019-12-22 | XMS | Encounter Summary ---
Demographics + + + | Address | [address] [place] [address] | | | [place] [address] | + + + | Home Phone [...] Team Providers + +------+ + | Care Cutter Helper Name | Role | Phone | [...] | | | | | Kait Barrios [place], | [place], [place] | | | | | [place] [address] | [address] | | | | | [phone] | | | +--------+ + + + [...]
--- OUTSIDE RECORDS SUMMARY | ~2019-12-22 | XMS | Encounter Summary ---
Demographics + + + | Address | [address] | | | [place] [address] | + + + | Home Phone [...] [place], [place] | | | | | [address] | | + + + + + | Misty Boateng | ECON | [address] | | | | | [place] | | | | | [address] | | + + + + + Care Team Providers + +------+ + | Care Appraisal Technician Name | Role | Phone | + +------+ + | Jt Perkins MD | PCP | | + +------+ + Encounter Details +--------+ + + + + | Date | Type | Department | Care Team | Description | +--------+ + + + + | 11/13/ | Hospital | [facility] | Adria Snow | Parotid mass | | 2020 | [facility] | LEANDRO [address] | | | | | ULTRASOUND [address] | | | | | JEFF [address] | [place], [place] | | | | | [place], [place] | [address] | | | | | [address] | [phone] | | | | | [phone] | | | | | | | Radiologist, [facility] | | | | | | Ultrasound [...] | Visit | | MD [address] | | | | | | [address] [place] | | | | | | [place] [address] | | | | | | [phone] | | | | | | | [...] cc syringes. These were provided to a photo technologist in | | | order to [...] | These were also given to the photo technologist in order to | | | prepare slides. Asbestos Worker images of each pass were saved [...] syringes. These were also given to the photo technologist in order | | to prepare slides. Asbestos Worker images of each pass were saved [...] preparation was | | | performed by [facility], [address] | | | [place] [address] (Oceanology Teacher: Paulie Krishnamurthy D.O.; | | | CLIA#:[id number]).Professional interpretation was performed by [facility] | | | [facility], [address] [place] [address], | | | [place] [address] (Oceanology Teacher: Lorenzo York M.D.; CLIA#: | | | [id number]). FLOW CYTOMETRY:Left parotid, biopsy:- No clonal B-cell [...] | | | performance characteristics determined by [facility]. It has | | | not been [...] | | | cytometry was performed by [facility], [address] [place] [address] | | | [place] [address] (Oceanology Teacher: Paulie Krishnamurthy, | | | D.O.; CLIA#: [id number]).Professional interpretation of the flow | | | cytometry was performed by [facility], [facility] | | | [facility], [address] [place] [address] (Medical | | | Director: Heladio Dickerson M.D.; CLIA#: [id number]). IMAGES: A: | | | [id number]: [id number] FINAL DIAGNOSIS PERFORMED BY: | | | [...] | | | | | | |[id number]: [id number] | | |[id number]: [id number] | | | | | | | [...] | |Diagnostician: Renny Adams CT(ASC) | | |Finance Accounting Internship | | |Diagnostician: Lorenzo York MD | [...]
--- OUTSIDE RECORDS SUMMARY | ~2019-12-22 | XMS | Encounter Summary ---
Demographics + + + | Address | [address] | | | [place] [address] | + + + | Home Phone [...] [place], [place] | | | | | [address] | | + + + + + | Misty Boateng | ECON | [address] | | | | | [place], [place] | | | | | [address] | | + + + + + Care Team Providers + +------+ + | Care Flat Examiner Name | Role | Phone | [...] | NEPHROLOGY [address] | [address] | | | | | [address] | [address] [place] | | | | | [place], [place] | [place] [address] | | | | | [address] | [phone] | | | | | [phone] | | | +--------+ + + + [...] and 06-06-15 wit h DARRICK request to [facility] Transplant Services, attn: Thi Lopez RN (fx: [phone]) on 07/04. documented in this encounter Plan of Treatment +--------+---------+ + + + | Date | Type | Specialty | Care Team | Description | +--------+---------+ + + + | 03/20/ | Office | Nephrology | Christine Martinez, | | | 2020 | Visit | | MD [address] [place] | | | | | | [address] [place] | | | | | | [place] [address] | | | | | | [phone] | | | | | | | | +--------+---------+ + + + documented as of this encounter Visit Diagnoses Not on filedocumented in this encounter"
--- OUTSIDE RECORDS SUMMARY | ~2019-12-22 | XMS | Encounter Summary ---
Demographics + + + | Address | [address] | | | [place] [address] | + + + | Home Phone [...] [place], [place] | | | | | [address] | | + + + + + | Misty Boateng | ECON | [address] | | | | | [place] | | | | | [address] | | + + + + + Care Team Providers + +------+ + | Care Executive Cyber Leader Name | Role | Phone | [...] | | | disease, | [address] | [place] [address] | | | | | stage 4 | [place] | [address] | | | | | (severe) | [address] | [place] | | | | | (HCC) | [place], | [address] Phone: | | | | | Essential | [place] | [phone] | | | | | hypertension | [address] | Fax: | | | | | , benign | Phone: | [phone] | | | | | Procedures | [phone] | | | | | | CO OFFICE | Fax: | | | | | | OUTPATIENT | [phone] | | | | | | VISIT 25 | | | | | | | MINUTES | | | + +--------+ + + + + Encounter Details +--------+---------+ + + + | Date | Type | Department | Care Team | Description | +--------+---------+ + + + | 04/19/ | Office | [facility] | Christine Martinez W, | CKD (chronic kidney | | 2019 | Visit | NEPHROLOGY [address] | [address] | disease) stage 4, | | | | [address] | [address] | GFR 15-29 ml/min | | | | [place], [place] | [place] [address] | ([facility]) (Primary Dx); | | | | [address] | [phone] | Essential | | | | [phone] | | hypertension | +--------+---------+ + + [...] kidney transplant waiting list at [facility] Waiting time qualifying date: 10/04/15 04/28/16- Active on transplant list at [facility]. Referred to [facility]. Cleared for transplant by Dr. [...] RBC, External 04/13/2019 5 Final UA Specific [place], External 04/13/2019 1.013 Final UA Leukocyte Esterase, [...] 4, GFR 15-29 ml/min ([facility]) Due to chronic interstitia l nephritis. Kidney [...] [place] | | | | | | [place] [address] | | | | | | [phone] | | | | | | | | +--------+---------+ + + + documented as of this encounter Visit Diagnoses + + | Diagnosis | + + | CKD (chronic kidney disease) stage 4, GFR 15-29 ml/min ([facility]) - Primary Chronic kidney | | disease, Stage IV (severe) | + + | Essential hypertension Unspecified essential hypertension | + + documented in this encounter"
--- OUTSIDE RECORDS SUMMARY | ~2019-12-22 | XMS | Encounter Summary ---
Demographics + + + | Address | [address] | | | [place] [address] | + + + | Home Phone [...] [place], [place] | | | | | [address] | | + + + + + | Misty Boateng | ECON | [address] | | | | | [place] | | | | | [address] | | + + + + + Care Team Providers + +------+ + | Care Ramp Supervisor Name | Role | Phone | [...] | NEPHROLOGY [address] | [address] [place] | disease) stage 4, | | | | [address] | [address] [place] | GFR 15-29 ml/min | | | | [place] | [facility] [place] [place] [address] | ([facility]) (Primary Dx) | | | | [address] | [phone] | | | | | [phone] | | | +--------+ + + + [...] | | | | | [place] [address] | | | | | | [phone] | | | | | | | | +--------+---------+ + + + documented as of this encounter Visit Diagnoses + + | Diagnosis | + + | CKD (chronic kidney disease) stage 4, GFR 15-29 ml/min ([facility]) - Primary Chronic kidney | | disease, Stage IV (severe) | + + documented in this encounter"
--- OUTSIDE RECORDS SUMMARY | ~2019-12-22 | XMS | Encounter Summary ---
Demographics + + + | Address | [address] | | | [place] [address] | + + + | Home Phone [...] [place], [place] | | | | | [address] | | + + + + + | Misty Boateng | ECON | [address] | | | | | [place] | | | | | [address] | | + + + + + Care Team Providers + +------+ + | Care Churn Operator Margarine Name | Role | Phone | + +------+ + | Jt Perkins MD | PCP | | + +------+ + Encounter Details +--------+ + + + + | Date | Type | Department | Care Team | Description | +--------+ + + + + | 02/09/ | Orders Only | [facility] | Conversion | | | 2013 | | NEPRHOLOGY [place] | Transaction, | | | | | [address] | Provider Unknown | | | | | [address] [place], [place] | [phone] | | | | | [address] | | | | | | [phone] | | | +--------+ + + + [...] | | | | | [place] [address] | | | | | | [phone] | | | | | | | [...]
--- OUTSIDE RECORDS SUMMARY | ~2019-12-22 | XMS | Encounter Summary ---
Demographics + + + | Address | [address] | | | [place] [address] | + + + | Home Phone [...] [place], [place] | | | | | [address] | | + + + + + | Misty Boateng | ECON | [address] | | | | | [place], [place] | | | | | [address] | | + + + + + Care Team Providers + +------+ + | Care Cabin Service Agent Name | Role | Phone | [...] + + | 08/08/ | Documentati | [facility] | Christine Martinez W, | Dialysis | | 2017 | on | NEPHROLOGY [address] | MD [address] [place] | (Asymptomatic) | | | | [address] | [address] | | | | | [place], [place] | [facility] [place] [address] | | | | | [address] | [phone] | | | | | [phone] | | | +--------+ + + + [...] note e -faxed to Hai Holman MD, [facility] [place] on 08/11/16. Christine Manzo MD - 0 [...] to kidney transplant waiting list at [facility] Waiting time qualifying date: 10/04/15 04/28/16- Active on transplant list at [facility]. Referred to [facility]. Cleared for transplant by Dr. Lorenzo/ Dr. [...] BIOPSY; Surgeon: Jose Juan Yanes MD; Location: [facility] Egd and colonoscopy N/A 11/08/2015 Procedure: EGD / COLONOSCOPY; Surgeon: Pan Jhaveri MD; Location: [facility] Social History Social History Marital Status: Spouse Name: N/A Number of Children: N/A Years of Education: N/A Occupational History [employer] win[employer] Social History Main Topics Smoking status: Former [...] serum creatinine of 3.11 mg/dL. Will d/w [facility] transplant team regarding his eGFR >20 mL/min. [...] Z76.82 V49.83 Listed for kidney transplant through [facility]. Cc: Polo Holman documented in this encounter [...] | | | | | | [place] [address] | | | | | | [phone] | | | | | | | [...]
--- OUTSIDE RECORDS SUMMARY | ~2019-12-22 | XMS | Encounter Summary ---
Demographics + + + | Address | [address] [place] [address] | | | [place] [address] | + + + | Home Phone [...] Team Providers + +------+ + | Care Family Services Specialist Name | Role | Phone | [...] Don | | | | | [address] | [facility] | | | | | [place], [place] | [place] [address] | | | | | [address] | [phone] | | | | | | | [...] of chronic renal failure, stage 4 (severe) ([facility]) 09/05/2015 Venous malformation 09/05/2015 Overview Note: On outside CT CD (Crohn's disease) ([facility]) 05/29/2015 Inflammation of multiple joints 05/29/2015 Benign hypertension 05/23/2015 Overview Note: No clonidine One ED visit Clinical depression 10/08/2012 Overview Note: Not suicidal Not homicidal Acute Interstitial Nephritis 03/12/2009 Chronic kidney disease, stage IV (severe) ([facility]) 03/02/2009 Overview Note: 1. Progressive renal dysfxn 2. Abnormal R renal CT 3. Renal Bx: 11/25: Interstitial nephritis. ([facility] [place]) 4. Corticosteroids instituted: 11/25 5. Negative immunologic w/u: ADAM, anti-DNA 6. eGFR 18: 08/2015 Pharmacy Preferences: [facility] [place] [address] Hours: 9am-9pm Mon-fri / 9am-7pm Sat / [...] Take 20 mg by mouth once daily. [facility] COLITIS-HIDR SUP STARTER 40 MG/0.8 ML [...] questions regarding this information contact pharmacy, pager #[phone] Thank you, Ashlee Francesronically signed by Ashlee Roland PharmD at 09/05/2015 2:39 PM PSTdocumented in this encounter Plan of Treatment Not on filedocumented as of this encounter Visit Diagnoses Not on filedocumented in this encounter
--- OUTSIDE RECORDS SUMMARY | ~2019-12-22 | XMS | Encounter Summary ---
Demographics + + + | Address | [address] [place] [address] | | | [place] [address] | + + + | Home Phone | | + + + | Preferred Language | Unknown | + + + | Marital Status | | + + + | Mosque Affiliation | CHR | + + + | Race | White | + + + | Ethnic Group | Not or | + + + Author + + + | Author | [facility] | + + + | Organization | [facility] | + + + | Address | Unknown | + + + | Phone | Unavailable | + + + Support + + +---------+ + | Name | Relationship | Address | Phone | + + +---------+ + | Misty Oneill | ECON | Unknown | | + + +---------+ + Care Team Providers + +------+ + | Care Coding Technician Name | Role | Phone | + +------+ + | Hai Holman MD | PCP | | + +------+ + Reason for Visit + + + | Reason | Comments | + + + | Transplant Form | 1066 | | Update | | + + + Encounter Details +--------+ + + + + | Date | Type | Department | Care Team | Description | +--------+ + + + + | 01/07/ | Abstract | Clinical | Santos Lorenzo, | Transplant Form | | 2015 | | Transplant Services | [address] | Update ( 9219) | | | | [address] | [address] | | | | | [place], | [place], [place] | | | | | [place] [address] | [address] | | | | | [phone] | [phone] | | | | | | | [...]
--- OUTSIDE RECORDS SUMMARY | ~2019-12-22 | XMS | Encounter Summary ---
Demographics + + + | Address | [address] [place] [address] | | | [place] [address] | + + + | Home Phone [...] Team Providers + +------+ + | Care Mixing Plant Dumper Name | Role | Phone | + [...] refresh) | | | | [address] [place], | [place], [place] | | | | | [place] [address] | [address] | | | | | [phone] | | | +--------+ + + + [...]
[~2019-12-22 01:54] MED LIST changes: +CARVEDILOL12.5 MG PO; +CLINDAMYCIN HC300 MG PO; +CULTURELLE1 EAC1 PO; +MOMETASONE FURO17 GM NAS; +NORVASC10 MG PO; +ONDANSETRON ODT4 MG PO
[2019-12-22] MEDS ORDERED: NORCO 5-325 TA1 EACH PO (04:12)
[2019-12-22] MEDS ORDERED: ZOFRAN4 MG PO (04:12)
[2019-12-22] MEDS ORDERED: FLOMAX0.4 MG PO (04:12)
== END 2019-12-22 04:33 | disposition home or self-care (01) ==
LOC: ED 01:54
DX: N13.2 Hydronephrosis with renal and ureteral calculous obstruction (principal); Z88.8 Allergy status to other drugs, medicaments and biological substances; Z79.899 Other long term (current) drug therapy
CPT/HCPCS: 74176; 80053; 81001; 83690; 83735; 85025; 96361; 96374; 96375; 96376; 99284-25; J1170; J2405; J7030

== ENCOUNTER 2022-06-20 15:45 | Emergency (ER) | payer OTHER ==
[~2022-06-20] VITALS: Ht 182.9 cm; Wt 86.2 kg
[~2022-06-20 15:45] MED LIST changes: +FLOMAX0.4 MG PO; +NORCO 5-325 TA1 EACH PO; +ZOFRAN4 MG PO
[2022-06-20] MEDS ORDERED: HYDROCODON-ACE1 EA11 PO (18:50)
== END 2022-06-20 21:30 | disposition home or self-care (01) ==
LOC: ED 15:45
DX: S82.141A Displaced bicondylar fracture of right tibia, initial encounter for closed fracture (principal); Z88.8 Allergy status to other drugs, medicaments and biological substances; Z79.899 Other long term (current) drug therapy; W11.XXXA Fall on and from ladder, initial encounter
CPT/HCPCS: 29515; 36415; 73590; 73700; 80048; 85025; 99284-25; J1170; J3010

== ENCOUNTER 2022-08-23 20:25 | Emergency (ER) | payer OTHER ==
[~2022-08-23] VITALS: Ht 182.9 cm; Wt 86.2 kg
[~2022-08-23 20:25] MED LIST changes: +HYDROCODON-ACE1 EA11 PO
--- OUTSIDE RECORDS SUMMARY | 2022-08-23 20:31 | XMS ---
PreManage Notification: DASHA VELIZ [employer] [place] [employer] Events No recent Security Events currently on file CRITERIA MET - [facility] CARE PROVIDERS There are no care providers on record at this time. Alina has no Care Guidelines for this patient. Stanislaw VISIT COUNT (12 MO.) 2 CLARITZA Scanlon TOTAL 2 NOTE: Visits indicate total known visits. ED/C VISIT TRACKING (12 MO.) 08/23/2022 20:29 [facility] [place] TYPE: Emergency COMPLAINT: - FAINTED AND NOW HAS BAD HEADACHE 06/20/2022 15:[address] [facility] [place] TYPE: Emergency COMPLAINT: - FALL, R KNEE/LEG INJURY DIAGNOSES: - Pain in right knee - Fall on and from ladder, initial encounter - Other half-way (current) drug therapy - Displaced bicondylar fracture of right tibia, initial encounter for closed fracture - Allergy status to other drugs, medicaments and biological substances INPATIENT VISIT TRACKING (12 MO.) No inpatient visits to display in this time frame [email or web address]
--- NOTE | 2022-08-24 12:32 | EKG ---
[facility] [address] [facility] [place] [address] Signed Normal sinus rhythm Normal ECG When compared with ECG of 31-MAR-2018 10:41, No significant change was found Confirmed by Natalie Esposito MD () on 08/24/2022 12:32:03 PM Electronically Signed By: NATALIE ESPOSITO MD 08/24/22 1232 PATIENT NAME: ADSHA VELIZ Electrocardiogram DATE OF : 72 PHYSICIAN: NATALIE ESPOSITO MD REPORT #: [id number] REPORT IS CONFIDENTIAL AND NOT TO BE RELEASED WITHOUT AUTHORIZATION
== END 2022-08-23 22:10 | disposition home or self-care (01) ==
LOC: ED 20:25
DX: R55 Syncope and collapse (principal); Z88.8 Allergy status to other drugs, medicaments and biological substances; Z79.899 Other long term (current) drug therapy
CPT/HCPCS: 36415; 70450; 80053; 81003; 83735; 84484; 85025; 85610; 93005; 93010; 99284-25; J7121